=== PATIENT | male | born 1945 | race Caucasian/White ===

== ENCOUNTER 2016-03-18 05:22 | Inpatient (IN) | payer MEDICARE, BC ==
--- NOTE | 2016-03-16 19:04 | PREOPHP ---
DATE OF ADMISSION: 03/18/2016 This patient is being admitted electively on 03/18/[address] Yoan Rosado. REASON FOR ADMISSION: Peripheral artery disease with vascular insufficiency of right leg. HISTORY OF PRESENT ILLNESS: This 70-year-old man is being admitted now up to undergo surgery by Dr. Rosado. The patient has an arterial stenosis in his right leg that needs a vascular bypass. Dr Cari Rosado has done an angiogram on the patient, which shows a narrowing in his right leg femoral a rtery. The patient is to undergo a femoral to anterior tibial bypass with a vein graft. The patien t has a history of peripheral artery disease. He did develop a left foot ischemic diabetic ulcer. This was in December of 2015. The patient eventually underwent a left below the knee amputation by Luis Daniel López in December of 2015. That left leg stump has had difficulty healing. He currently guerrier s a wound VAC on the stump and it has been debrided several times by Dr. Rosado. Dr. Rosado d id perform a right leg angiogram and found that the patient has superficial femoral artery stenosis and needs a vascular bypass. The patient has been a resident of [facility] or the last several months. He has a history of end-stage renal disease and is on maintenance hemod ialysis Wednesday, Wednesday, and Wednesday. He has a longstanding history of type 2 diabetes mellitus wi th multiple sequelae. He also has severe postural hypotension and is mostly in bed, although he is able to get in a wheelchair and is able to sit in a wheelchair for several hours. He has been under going physical therapy at [facility]. CURRENT MEDICATIONS: Include the followin. Aspirin 81 mg a day, which was held preoperatively. 2. Lantus insulin 28 units at bedtime daily. 3. PhosLo 1 tablet 3 times a day. 4. Centrum Silver 1 daily. 5. Atenolol 25 mg a day. 6. Calcitriol 0.25 mcg a day. 7. Vitamin D3 at 50,000 units a month. 8. Lipitor 20 mg a day. 9. NovoLog insulin 8 units before each meal. 10. Creon 1 tablet 3 times a day with meals. ALLERGIES: HE HAS NO KNOWN DRUG ALLERGIES. PAST MEDICAL HISTORY: Remarkable for hypertension, diabetes mellitus, pancreatitis with pancreatic insufficiency, end-stage renal disease on maintenance hemodialysis, diabetic nephropathy, urinary tr act infection. Severe postural hypotension. SURGICAL HISTORY: Vasectomy, tonsillectomy, colonoscopy, right eye cataract extraction, right arm A V fistula, left below the knee amputation in December 2015. FAMILY HISTORY: Father at age 86 of a stroke. Mother age 76 of congestive heart failure. SOCIAL HISTORY: The patient does not smoke or drink alcohol. He is retired. REVIEW OF SYSTEMS: CONSTITUTIONAL: No chills, no weight gain, no loss of appetite, no fever, no weakness, no weight lo ss, no fatigue. EARS, NOSE, THROAT: He does have a persistent cough with feeling of postnasal drip. CARDIORESPIRATORY: Denies shortness of breath. He does have a persistent intermittent cough. CARDIOLOGY: No chest pain, no chest pressure. No history of heart disease. GASTROINTESTINAL: Negative. NEUROMUSCULAR: Lower extremity tingling and numbness due to diabetic nephropathy. UROLOGIC: Benign prostatic hypertrophy. PHYSICAL EXAMINATION: GENERAL: At this time reveals an ill-appearing man in no apparent distress. VITAL SIGNS: Temperature 96.9, blood pressure sitting of 160/80, heart rate 80. HEENT: Head normocephalic. Eyes: Extraocular muscles intact. Nose and mouth are normal. On the left side of his nose on the skin, there is a nonhealing lesion. NECK: No neck vein distention. LUNGS: Clear to auscultation. HEART: Regular rhythm. No murmurs, gallops, or rubs. ABDOMEN: Soft, nontender. No masses or megaly extremity. LOWER EXTREMITIES: Left lower leg status post below the knee amputation with a healing stump with a wound VAC. Right leg, there are some poorly healing superficial skin tears. IMPRESSION: This patient is cleared for vascular bypass surgery of the right leg. He has multiple medical problems due to longstanding type 2 diabetes mellitus. I will follow the patient along with you postoperatively. The patient does have end-stage renal disease and is on maintenance hemodialy sis Wednesday, Wednesday, and Wednesday. His next dialysis after surgery will be determined while in the hospital. Dictated By: CELESTE BHATT MD, ND/YOANDY Conf#: [id number] DID#: [id number] CC: MARTÍNEZ ROSADO MD;*EndCC*
[2016-03-17 10:53] VITALS: Ht 190.5 cm; Wt 84.0 kg
[2016-03-18] VITALS (73 sets, daily range): BP systolic 133–188; BP diastolic 38–76; PULSE 66–93; RESP 13–23
[~2016-03-18] VITALS: Ht 190.5 cm; Wt 84.0 kg
[~2016-03-18 05:22] MED LIST: ACET-2047 PO; ASCO500C7 PO; ASP81 PO; ATOR20TA38 PO; CALC0.2511 PO; CALC667C PO; EPO10ESRD SC; HEP30MU30 IJ; HYDR-906 PO; LANT3I SC; LIPA1CAP6 PO; LORA10TA3 PO; MIDO5TAB19 PO; MULT-542 PO; NOVO3I SC; SACC250C PO; UDROBDM PO
[2016-03-18] MEDS ORDERED: VANCOMYCIN 1 GM (PMX) 250 ML IVPB SCH ×2 (06:30→13:00)
[2016-03-18] MEDS ORDERED: GELATIN SIZE 100 SPONGE ONE (06:58)
[2016-03-18] MEDS ORDERED: HEPARIN 1000 UNITS/ML 10 ML INJ ONE ×2 (06:59→09:08)
--- NOTE | 2016-03-18 07:13 | HPN ---
Date/Time of Note Date/Time of Note DATE: 03/18/16 TIME: 07:13 Interval H&P Admission Note Pt. seen H&P reviewed: No system changes Worsening RLE tissue loss MARTÍNEZ ROSADO MD Mar 18, 2016 07:13
[2016-03-18] MEDS: DEXTRAN-40 10%/D5W 500 ML, HEPARIN 1,000 UNIT, PAPAVERINE 120 MG IV SCH ×6 (07:30→09:18)
[2016-03-18] MEDS ORDERED: MIDAZOLAM 1 MG/ML 2 ML INJ ONE (07:37)
[2016-03-18] MEDS ORDERED: SACC250C PO (07:53)
[2016-03-18] MEDS ORDERED: FOSRENOL PO (07:53)
[2016-03-18] MEDS ORDERED: ATOR20TA38 PO (07:53)
[2016-03-18] MEDS ORDERED: BISA10SU55 RC (07:53)
[2016-03-18] MEDS ORDERED: NA P230E RC (07:53)
[2016-03-18] MEDS ORDERED: TAMS0.4C2 PO (07:53)
[2016-03-18] MEDS ORDERED: EPO10ESRD SC (07:53)
[2016-03-18] MEDS ORDERED: CALC-277 PO (07:53)
[2016-03-18] MEDS ORDERED: CHOL100062 PO ×2 (07:53)
[2016-03-18] MEDS ORDERED: NEPH PO (07:53)
[2016-03-18] MEDS: THROMBIN 5000 UNIT VIAL ONE ×2 (09:18→09:52)
[2016-03-18] MEDS ORDERED: FENTAnyl 50 MCG/ML VIAL IV PRN (09:30)
[2016-03-18] MEDS ORDERED: ONDANSETRON 4 MG INJ IV PRN (09:30)
[2016-03-18] MEDS ORDERED: DIPHENHYDRAMINE 50 MG INJ IV PRN (09:30)
[2016-03-18] MEDS ORDERED: morphine (1 MG/ML) 10ML SYRINGE IV PRN (09:30)
[2016-03-18] MEDS ORDERED: morphine 10 MG INJ ONE (11:24)
[2016-03-18] MEDS ORDERED: ROCURONIUM 50 MG INJ ONE (12:11)
[2016-03-18] MEDS ORDERED: LIDOCAINE 2% (SDV) 5 ML INJ ONE (12:11)
[2016-03-18] MEDS ORDERED: ETOMIDATE 20 MG INJ ONE (12:11)
[2016-03-18] MEDS ORDERED: ONDANSETRON 4 MG INJ ONE (12:11)
[2016-03-18] MEDS ORDERED: LABETALOL HCL 20MG INJ ONE (12:56)
--- NOTE | 2016-03-18 13:03 | OPR ---
Date/Time of Note Date/Time of Note DATE: 03/18/16 TIME: 12:56 Operative Report Free Text/Dictation DATE OF OPERATION: 03/18/2016 SURGEON: Johny Rosado MD INFORMATION SYSTEMS PLANNER: Fadi Oliveros MD PREOPERATIVE DIAGNOSIS: Right lower extremity gangrene. POSTOPERATIVE DIAGNOSIS: Right lower extremity gangrene. OPERATION PERFORMED: 1. Right superficial femoral artery to distal anterior tibial artery in situ bypass. 2. Excisional sharp debridement of the below knee amputation stump wound (Skin subcutaneous tissue) ANESTHESIA: General. COMPLICATIONS: None. ESTIMATED BLOOD LOSS: 250 mL TRANSFUSION: Two unit of packed red blood cells. INTRAVENOUS FLUIDS: 1.6 L's SPECIMEN: None. INDICATIONS: This is a 70-year-old diabetic gentleman whom presented with right lower extremity gangrene. Patient had already underwent left BKA secondary to Charcot foot and atherosclerotic disease. Patient wanted to have every possibility of limb salvage for the right lower extremity. Risks and benefits of the procedure were discussed with the patient, not limited to , AL, pneumonia, stroke, infection, thrombosis of graft and arterial, revision of bypass, nerve injury, limb loss, nephrotoxicity, bleeding, possible multiple revisions, and he elected to undergo surgical intervention. DESCRIPTION: The patient was brought into the operating room and placed in supine position on the table. The arms were placed at 80 degrees. The normal bony prominences were padded. The anesthesia team had placed appropriate lines , and general anesthesia was induced. The patient tolerated anesthesia well. Jimenez catheter was placed under sterile conditions. Arterial line was also placed under sterile conditions. Time-out and the appropriate side was marked and confirmed. The patient's right lower abdomen and the right lower extremity were then circumferentially prepped and draped in usual standard sterile fashion. Preoperative antibiotics were administered prior to skin incision. A 10 to 12 cm longitudinal incision was performed 1 to 2 cm posteromedial and parallel to the tibia. The incision was deepened through the subcutaneous tissue. Care was given to avoid greater saphenous vein injury. The quality of the vein was adequate. The greater saphenous vein was preserved and the incision was extended towards the medial malleolus. . At this point, a 3 cm aspect of the anterior tibial artery was freed and dissected. Attention was then directed towards the groin. A longitudinal incision was then made over the right superficial femoral artery plane. The incision was deepened through the subcutaneous tissue with electrocautery and sharp dissection. Attention was paid to avoid lymphatics, and encountered lymphatics were ligated and divided. The distal common femoral artery was then exposed and sharply dissected, and the dissection was extended distally to include the superficial femoral artery. The entire superficial femoral artery was evaluated and appeared to be adequate for location for our bypass. At this point, the greater saphenous then was identified in the medial aspect of our incision in the subcutaneous tissue. The greater saphenous vein was then traced towards the saphenofemoral junction. The saphenofemoral junction and adjacent 5 cm segment of the saphenous vein were then circumferentially dissected. Venous branches originating from this segment were isolated and divided. The anterior aspect of the saphenous vein was then exposed from the saphenofemoral junction to the mid lower leg through one continuous incision. This was performed secondary to having multiple closed loops in the thigh and in the upper and mid calf area. The LeMaitre valvulotome was run through the vein in order to see the appropriate direction of the dominant aspect of the greater saphenous vein in the closed loops. However, it was difficult to ascertain which path was the best for our bypass. It was then determined that we will perform an open in situ bypass and will do localized valvulotomies. At this point, the superficial femoral artery was encircled with Silastic vessel loops, and minor branches were identified and spared. The patient was given 5000 units of heparin intravenously. A side Major clamp was then applied to the common femoral vein, and the saphenous vein was transected. This incorporated the saphenofemoral junction and a 1 mm rim of the femoral vein. The femoral venotomy was then closed with a running 5-0 Prolene suture. The saphenofemoral valve was then excised under direct vision using Young scissors. The superficial femoral artery was then clamped proximally and distally. Longitudinal arteriotomy in the superficial femoral artery was then performed and extended with Young scissors for 1 cm. The proximal anastomosis was then constructed between the gilman of the saphenofemoral junction and the femoral arteriotomy with a running 5-0 Prolene suture. Prior to completing the suture line, back bleeding, forward flushing and irrigation of the anastomosis with heparinized saline solution was performed. The anastomosis was then completed and checked for hemostasis, which was adequate. With the vein arterialized, the skin overlying the vein was incised and the vein sequentially exposed. The remaining valves where then disrupted using a retrograde valvulotome introduced through the side branches and distal end of the saphenous vein. The flow through the vein was checked, and it was pulsatile. During this process, there were multiple closed loops which were identified and made it a bit challenging in terms of being able to determine which path is going to be the dominant. Therefore, we kept the closed loop intact, and both the nondominant and dominant greater saphenous veins were spared and were included in the in-situ. The distal end of the vein was then controlled with a Yasargil clamp. At this point, the proximal and distal control of the posterior tibial artery was then performed using Yasargil clamps. A 1 cm arteriotomy was then created in the anterior wall of the posterior tibial artery. The vein was then transected at the appropriate length. The transected end was incised along its posterior aspect, the vein was spatulated and anastomosis to the posterior tibial artery was then constructed with a running 6-0 Prolene suture. Prior to completing the suture line, backbleeding, forward flushing and irrigation of the anastomosis with heparinized saline solution. The anastomosis was then checked for hemostasis, which was adequate. The suture lines and the wounds were then rechecked for hemostasis. There was good Doppler signal in the foot at the level of the posterior tibial artery and anterior tibial artery and a good augmentation of the signal with compressing and releasing of the vein graft. The subcutaneous tissues in the groin wound were closed with two layer fashion with 3-0 Prolene suture. The fascia over the soleus muscle was partially closed with 3-0 Vicryl sutures in an interrupted fashion. The skin was closed with skin alec. Skin alec were applied to the rest of the leg. At this point, a dry, sterile dressings was applied. The patient tolerated procedure well, was then transferred to the intensive care unit in fair condition. All instruments, catheters, needles, sponges were correct x2 JOHNY ROSADO MD Mar 18, 2016 13:03
[2016-03-18] MEDS ORDERED: LABETALOL HCL 20MG INJ IV ONE (13:30)
--- NOTE | 2016-03-18 13:37 | RADRPT ---
PROCEDURE: Chest Radiograph. CLINICAL INDICATION: Central line placement TECHNIQUE: Single frontal chest radiograph. COMPARISON: Chest radiograph 01/06/2016 FINDINGS: A right internal jugular venous catheter is in place with distal tip in the region of the central in ternal jugular vein. There is no pneumothorax. The cardiomediastinal silhouette is within normal l imits. No infiltrate or effusion is seen. There are healed left posterior rib fractures.. IMPRESSION: 1. Right internal jugular venous line in place. No pneumothorax. 2. No evidence of acute cardiopulmonary disease. RPTAT: KK .Abiel Monahan MD, MD Date Time Electronically viewed and signed by .Abiel Monahan MD, MD on 03/18/2016 13:36 .B/
[2016-03-18] MEDS ORDERED: HEPARIN 5,000 UNIT/0.5 ML SYG SC SCH (14:00)
[2016-03-18] MEDS ORDERED: DEXTROSE 50% 50 ML SYRINGE IV PRN ×4 (14:30→15:00)
[2016-03-18] MEDS ORDERED: ACETAMINOPHEN 325 MG TAB PO PRN (14:30)
[2016-03-18] MEDS ORDERED: GLUCOSE GEL 15 GRAM TUBE BUCCAL PRN ×2 (14:30→15:00)
[2016-03-18] MEDS ORDERED: GLUCOSE GEL 15 GRAM TUBE PO PRN ×4 (14:30→15:00)
[2016-03-18] MEDS ORDERED: BISACODYL 10 MG SUPP PR PRN (14:30)
[2016-03-18] MEDS ORDERED: GLUCAGON 1 MG INJ IM PRN ×2 (14:30→15:00)
[2016-03-18] MEDS: CREON (24K-76K-120K) 1 CAP PO SCH (18:00)
[2016-03-18] MEDS: INSULIN ASPART [NOVOLOG] 3 ML PEN SC SCH ×2 (18:00→21:00)
[2016-03-18] MEDS: CALCIUM ACETATE 667 MG CAP PO SCH (18:00)
[2016-03-18] MEDS: HYDROmorphONE 1 MG/ML SYG IV PRN ×2 (18:13→21:46)
[2016-03-18] MEDS ORDERED: SACCHAROMYCES BOULARDII 250 MG CAP PO SCH (21:00)
[2016-03-18] MEDS ORDERED: ATORVASTATIN 20 MG TAB PO SCH (21:00)
[2016-03-18] MEDS: TAMSULOSIN (SR) 0.4 MG CAP PO SCH (21:08)
[2016-03-18] MEDS: ATORVASTATIN 20 MG TAB PO SCH (21:08)
[2016-03-18] MEDS: HEPARIN 5,000 UNIT/0.5 ML SYG SC SCH (21:47)
[2016-03-18] MEDS: INSULIN GLARGINE [LANtus] 3 ML PEN SC SCH (22:52)
--- NOTE | 2016-03-18 22:56 | RADRPT ---
Vent Rate: 77 bpm RR Interval: 0 msec VT Interval: 186 msec QRS Duration: 100 msec QT Interval: 400 msec QTC Interval: 452 msec P-R-T [place]: 59 - 27 - 65 degrees Normal sinus rhythm Normal ECG Electronically Signed By: Navjot Maldonado [id number]
--- NOTE | 2016-03-18 23:42 | CONS ---
Date/Time of Note Date/Time of Note DATE: 03/18/16 TIME: 23:32 Assessment/Plan Assessment/Plan Chief Complaint/Hosp Course Impression 1. PAD s/p R fem-tib bypass - cont asa/statin - doing well postop - cont wound mgmt per vascular 2. Orthostatic hypotension- likely from DM2 autonomic dysfunction. severe with nocturnal hypertension at times. - midodrine as needed, had reduced frequency of taking as outpt - if sustained sbp > 180 at rest may need prn - bp lower overnight, no antihtn at this time, will watch for supine htn. - sleep > 30 degrees angle, avoid laying supine 3.ESRD on maintenance hemodialysis - stable - iHD per renal 4.DM II per primary Problems: Consultation Date/Type/Reason Admit Date/Time Mar 18, 2016 at 05:22 Date of Consultation: Mar 18, 2016 Type of Consultation: Cardiolgoy Reason for Consultation post op exam, orthostatic hypotension Referring Provider: MARTÍNEZ ROSADO MD Hx of Present Illness Mr. Hayden is a 70 y.o. man with h/o dm2, hld, PAD s/p L BKA and RLE CLI now s/p R fem-tib bypass and wound debridement. Pt seen as preop, had normal lvef on echo, fixed inferior defect on lexiscan no reversible ischemia, pt cleared for surgery and has done well seen post op in pacu. pt alert, exubated. denies any, cp, sob, dizziness. still with RLE pain he states. no palp, dizziness. Constitutional: no complaints Eyes: no complaints ENT: no complaints Respiratory: no complaints Cardiovascular: no complaints Gastrointestinal: no complaints Genitourinary: no complaints Musculoskeletal: other (difficulty walking) Skin: erythema, skin lesions Neurologic: other (orthostatic hypotesnion) Psychological: no complaints Past Medical History PAD, diabetes mellitus, pancreatitis with pancreatic insufficiency, end-stage renal disease on maintenance hemodialysis, diabetic nephropathy, urinary tract infection. Severe postural hypotension. Past Surgical History Vasectomy, tonsillectomy, colonoscopy, right eye cataract extraction, right arm AV fistula, left below the knee amputation in December 2015. Past Surgical Hx: other Family History Significant Family History: heart disease, other (stroke) Social History Alcohol Use: none Smoking Status: Never smoker Drug Use: none Exam/Review of Systems Vital Signs Vitals Vital Signs Date Time Temp Pulse Resp B/P Pulse Ox O2 Delivery O2 Flow Rate FiO2 03/18/16 20:56 85 03/18/16 20:53 2.0 03/18/16 19:48 18 140/67 98 Nasal Cannula 03/18/16 12:42 98.2 Exam Constitutional: alert, oriented Psych: no complaints Head: normocephalic Eyes: EOMI, nl conjunctiva, nl lids ENMT: nl external ears & nose Neck: non-tender, supple, No jvd Respiratory: clear to auscultation, normal air movement Cardiovascular: nl pulses, regular rate and rhythm, No S3, No S4, No bruits, No edema, No irregular rhythm, No jugular venous distention (JVD), No systolic murmur Gastrointestinal: non-tender, soft Musculoskeletal: other (rle dressing intake, c/d, RLE with ulceration of toes) Extremities: normal pulses Neurological: CASH CLERK II-XII intact, nl mental status, nl speech, nl strength Results Results 24 hrs Laboratory Tests Test 03/18/16 06:30 03/18/16 12:44 03/18/16 21:07 Bedside Glucose 137 137 105 Medications Medications Current Medications Vancomycin HCl (Vancocin) 250 ml @ 125 mls/hr Q24H IVPB ; Start 03/19/16 at 08: 00; Stop 03/19/16 at 09:59 Heparin Sodium (Porcine) (Heparin (5000 Units/0.5 ml)) 5,000 unit Q8 SC Last administered on 03/18/16 21:47; Admin Dose 5,000 UNIT; Start 03/18/16 at 22:00 Acetaminophen (Tylenol Tab) 650 mg Q4H PRN PO PAIN AND OR ELEVATED TEMP; Start 03/18/16 at 14:30 Ascorbic Acid (Vitamin C) 500 mg DAILY PO ; Start 03/19/16 at 09:00 Aspirin (Aspirin) 81 mg DAILY PO ; Start 03/19/16 at 09:00 Atorvastatin Calcium (Lipitor) 20 mg QHS PO Last administered on 03/18/16 21: 08; Admin Dose 20 MG; Start 03/18/16 at 21:00 Bisacodyl (Dulcolax Supp) 10 mg DAILY PRN UT BM; Start 03/18/16 at 14:30 Calcitriol (Rocaltrol) 0.25 mcg DAILY PO ; Start 03/19/16 at 09:00 Epoetin Nito (Epogen (Esrd)) 10,000 units MONWEDFRI@17 SC ; Start 03/18/16 at 17 :00 Insulin Glargine (Lantus) 20 unit QHS SC Last administered on 03/18/16 22:52; Admin Dose 20 UNIT; Start 03/18/16 at 21:00 Loratadine (Claritin) 10 mg DAILY PO ; Start 03/19/16 at 09:00 Multivit/Ca Carb/ B Cmplx/FA/Prenat (Sarika-Nahomi) 1 tab DAILY PO ; Start 03/19/16 at 09:00 Saccharomyces Boulardii (Florastor) 500 mg BID PO ; Start 03/18/16 at 21:00 Tamsulosin HCl (Flomax) 0.4 mg HS PO Last administered on 03/18/16 21:08; Admin Dose 0.4 MG; Start 03/18/16 at 21:00 Diagnostic Test (Pha) (Accucheck) 1 ea 02 XX ; Start 03/19/16 at 02:00 Hydromorphone HCl (Dilaudid) 1 mg Q4H PRN IV PAIN Last administered on 21:46; Admin Dose 1 MG; Start 03/18/16 at 14:30 Miscellaneous Information 1 ea NOTE XX ; Start 03/18/16 at 15:00 Glucose (Glutose) 15 gm Q15M PRN PO DECREASED GLUCOSE; Start 03/18/16 at 15:00 Glucose (Glutose) 22.5 gm Q15M PRN PO DECREASED GLUCOSE; Start 03/18/16 at 15: 00 Dextrose (D50w Syringe) 25 ml Q15M PRN IV DECREASED GLUCOSE; Start 03/18/16 at 15:00 Dextrose (D50w Syringe) 50 ml Q15M PRN IV DECREASED GLUCOSE; Start 03/18/16 at 15:00 Glucagon (Glucagen) 1 mg Q15M PRN IM DECREASED GLUCOSE; Start 03/18/16 at 15:00 Glucose (Glutose) 15 gm Q15M PRN BUCCAL DECREASED GLUCOSE; Start 03/18/16 at 15 :00 Procedures Procedures EKG: NSR no changes op report reviewed AMY PEREZ Mar 18, 2016 23:42
[2016-03-19] VITALS (58 sets, daily range): BP systolic 115–200; BP diastolic 4–114; PULSE 83–99; RESP 10–28
[2016-03-19] MEDS: ACCUCHECK XX SCH (02:00)
[2016-03-19] MEDS: HYDROmorphONE 1 MG/ML SYG IV PRN ×2 (03:01→06:19)
[2016-03-19] MEDS: SACCHAROMYCES BOULARDII 250 MG CAP PO SCH ×3 (03:02→21:25)
[2016-03-19] MEDS: EPOETIN 10000 UNITS/1 ML INJ (ESRD) SC SCH (03:45)
[2016-03-19] MEDS: HEPARIN 5,000 UNIT/0.5 ML SYG SC SCH ×3 (05:39→21:26)
[2016-03-19] MEDS: INSULIN ASPART [NOVOLOG] 3 ML PEN SC SCH ×4 (07:35→21:00)
--- NOTE | 2016-03-19 07:56 | PN ---
Date/Time of Note Date/Time of Note DATE: 03/19/16 TIME: 07:48 Assessment/Plan Lines/Catheters IV Catheter Type (from [facility]): A Line Jimenez in Place (from [facility]): Yes Assessment/Plan Chief Complaint/Hosp Course -RLE atherosclerosis with gangrene: S/P SFA-Distal Anterior tibial artery In- Situ bypass -D/C Jimenez -D/C Sommer -PT/OT OOB and to chair, activity as tolerated, FWB with RLE -Will need another 24hours of neurovascular checks' -Appreciate cardiology input -Appreciate nephrology input -Optimize vascular status (BP meds, sugar control, cholesterol, antiplatelets, diet, nutrition) -Discussed the plan, management and findings with pt and he understands -Thank you for allowing us to partake in the car5e of your patient, please call with any questions Problems: Subjective 24 Hr Interval Summary no new vascular events overnight, tolerated HD successfully Exam/Review of Systems Vital Signs Vitals Vital Signs Date Time Temp Pulse Resp B/P Pulse Ox O2 Delivery O2 Flow Rate FiO2 03/19/16 04:00 93 11 168/44 100 Nasal Cannula 4.0 139/52 03/19/16 02:30 98.1 Intake and Output 03/18/16 03/18/16 03/19/16 15:00 23:00 07:00 Intake Total 2300 ml 500 ml Output Total 300 ml 2300 ml Balance 2000 ml -1800 ml Exam Free Text/Dictation A&Ox3 CTAB S1S2 present soft NTND BS+ RLE: palpable femoral pulse, palpable graft at the ankle, motor/sensory intact, cap refill 1-2 seconds, dependant dopplerable DP signal biphasic, All surgical dressings intact and dry. LLE: palpable femoral pulse, motor/sensory intact, dressing intact and dry MARTÍNEZ ROSADO MD Mar 19, 2016 07:56
[2016-03-19] MEDS ORDERED: VANCOMYCIN 1 GM (PMX) 250 ML IVPB SCH (08:00)
[2016-03-19] MEDS: CREON (24K-76K-120K) 1 CAP PO SCH ×3 (08:49→18:21)
[2016-03-19] MEDS: MULTIVIT/CA CARB/B CMPLX/FA TAB PO SCH (08:49)
[2016-03-19] MEDS: LORATADINE 10 MG TAB PO SCH (08:50)
[2016-03-19] MEDS: CALCIUM ACETATE 667 MG CAP PO SCH ×3 (08:50→18:22)
[2016-03-19] MEDS: ASCORBIC ACID 500 MG TAB PO SCH (08:50)
[2016-03-19] MEDS: ASPIRIN 81 MG TAB PO SCH (08:50)
[2016-03-19] MEDS: CALCITRIOL 0.25 MCG CAP PO SCH (08:50)
[2016-03-19 09:25] LABS: BASOPHIL # 0.1 10^3/ul (0.0-0.1); EOSINOPHILS # 0.4 10^3/ul (0.0-0.5); EOSINOPHILS % 3.9 % (0.0-7.0); HEMATOCRIT 35.4 % (42.0-52.0); HEMOGLOBIN 11.8 g/dl (14.0-18.0); LYMPHOCYTES # 1.1 10^3/ul (0.8-2.9); LYMPHOCYTES % 11.6 % (15.0-51.0); MEAN CORPUSCULAR HEMOGLOBIN 29.6 pg (29.0-33.0); MEAN CORPUSCULAR HGB CONC 33.2 g/dl (32.0-37.0); MEAN CORPUSCULAR VOLUME 89.2 fl (82.0-101.0); MEAN PLATELET VOLUME 6.7 fl (7.4-10.4); MONOCYTE # 0.6 10^3/ul (0.3-0.9); MONOCYTES % 6.8 % (0.0-11.0); NEUTROPHILS % 76.7 % (39.0-77.0); PLATELET COUNT 164 10^3/UL (140-440); RED BLOOD COUNT 3.97 10^6/ul (4.70-6.10); RED CELL DISTRIBUTION WIDTH 16.2 % (11.5-14.5); UNCORRECTED WBC 9.1 10^3/ul (4.8-10.8); WHITE BLOOD COUNT 9.1 10^3/ul (4.8-10.8)
[2016-03-19 09:32] LABS: CONDITION 1; LH ANALYZER COMMENTS 1
[2016-03-19 09:36] LABS: CALCIUM 8.2 mg/dl (8.4-10.2); CREATININE 4.11 mg/dl (0.61-1.24)
--- NOTE | 2016-03-19 09:52 | CONS ---
Date/Time of Note Date/Time of Note DATE: 03/19/16 TIME: 09:39 Assessment/Plan Assessment/Plan Chief Complaint/Hosp Course 1. he is 1 day post op R leg Femoral to tibial artery bypass . L leg stump debridement . 2. ESRD , hemodialysis ordered for tomorrow . 3. DM 4. severe postural hypotension 5. anemia of CKD . Problems: Consultation Date/Type/Reason Admit Date/Time Mar 18, 2016 at 05:22 Initial Consult Date 03/18/16 Type of Consultation: Cardiolgoy Referring Provider: MARTÍNEZ ROSADO MD 24 HR Interval Summary Free Text/Dictation He is now 1 day post op a R femoral artery bypass . He is in the ICU . Constitutional: no complaints Exam/Review of Systems Vital Signs Vitals Vital Signs Date Time Temp Pulse Resp B/P Pulse Ox O2 Delivery O2 Flow Rate FiO2 03/19/16 08:00 89 03/19/16 06:15 16 143/61 99 Nasal Cannula 2.0 143/61 03/19/16 02:30 98.1 Intake and Output 03/18/16 03/18/16 03/19/16 15:00 23:00 07:00 Intake Total 2300 ml 50 ml 550 ml Output Total 300 ml 135 ml 2485 ml Balance 2000 ml -85 ml -1935 ml Exam R leg with a large bandage , L leg S/P BKA with debridement . Constitutional: alert, oriented, well developed Psych: nl mood/affect, no complaints Respiratory: clear to auscultation, normal air movement Cardiovascular: regular rate and rhythm Results Result Diagram: 03/19/1620 03/19/16 0920 Results 24 hrs Laboratory Tests Test 03/18/16 12:44 03/18/16 21:07 03/19/16 01:35 03/19/16 08:45 Bedside Glucose 137 105 129 89 Test 03/19/16 09:20 Anion Gap 17 H Basophils # 0.1 Basophils % 1.0 Blood Morphology Comment Blood Urea Nitrogen 35 H Calcium Level 8.2 L Carbon Dioxide Level 29 Chloride Level 97 Creatinine 4.11 H Eosinophils # 0.4 Eosinophils % 3.9 Glucose Level 83 Hematocrit 35.4 L Hemoglobin 11.8 L Lymphocytes # 1.1 Lymphocytes % 11.6 L Mean Corpuscular Hemoglobin 29.6 Mean Corpuscular Hemoglobin Concent 33.2 Mean Corpuscular Volume 89.2 Mean Platelet Volume 6.7 #L Monocytes # 0.6 Monocytes % 6.8 Neutrophils # 7.0 Neutrophils % 76.7 Nucleated Red Blood Cells # 0.0 Nucleated Red Blood Cells % 0.0 Platelet Count 164 Potassium Level 4.0 Red Blood Count 3.97 L Red Cell Distribution Width 16.2 H Sodium Level 139 White Blood Count 9.1 # Medications Medications Current Medications Vancomycin HCl (Vancocin) 250 ml @ 125 mls/hr Q24H IVPB Last administered on 08:55; Admin Dose 125 MLS/HR; Start 03/19/16 at 08:00; Stop 03/19/16 at 09:59 Heparin Sodium (Porcine) (Heparin (5000 Units/0.5 ml)) 5,000 unit Q8 SC Last administered on 03/19/16 05:39; Admin Dose 5,000 UNIT; Start 03/18/16 at 22:00 Acetaminophen (Tylenol Tab) 650 mg Q4H PRN PO PAIN AND OR ELEVATED TEMP; Start 03/18/16 at 14:30 Ascorbic Acid (Vitamin C) 500 mg DAILY PO Last administered on 03/19/16 08:50 ; Admin Dose 500 MG; Start 03/19/16 at 09:00 Aspirin (Aspirin) 81 mg DAILY PO Last administered on 03/19/16 08:50; Admin Dose 81 MG; Start 03/19/16 at 09:00 Atorvastatin Calcium (Lipitor) 20 mg QHS PO Last administered on 03/18/16 21: 08; Admin Dose 20 MG; Start 03/18/16 at 21:00 Bisacodyl (Dulcolax Supp) 10 mg DAILY PRN [place] BM; Start 03/18/16 at 14:30 Calcitriol (Rocaltrol) 0.25 mcg DAILY PO Last administered on 03/19/16 08:50; Admin Dose 0.25 MCG; Start 03/19/16 at 09:00 Epoetin Nito (Epogen (Esrd)) 10,000 units MONWEDFRI@17 SC Last administered on 03/19/16 03:45; Admin Dose 10,000 UNITS; Start 03/18/16 at 17:00 Insulin Glargine (Lantus) 20 unit QHS SC Last administered on 03/18/16 22:52; Admin Dose 20 UNIT; Start 03/18/16 at 21:00 Loratadine (Claritin) 10 mg DAILY PO Last administered on 03/19/16 08:50; Admin Dose 10 MG; Start 03/19/16 at 09:00 Multivit/Ca Carb/ B Cmplx/FA/Prenat (Sarika-Nahomi) 1 tab DAILY PO Last administered on 03/19/16 08:49; Admin Dose 1 TAB; Start 03/19/16 at 09:00 Saccharomyces Boulardii (Florastor) 500 mg BID PO Last administered on 08:49; Admin Dose 500 MG; Start 03/18/16 at 21:00 Tamsulosin HCl (Flomax) 0.4 mg HS PO Last administered on 03/18/16 21:08; Admin Dose 0.4 MG; Start 03/18/16 at 21:00 Diagnostic Test (Pha) (Accucheck) 1 ea 02 XX Last administered on 03/19/16 02: 00; Admin Dose 1 EA; Start 03/19/16 at 02:00 Hydromorphone HCl (Dilaudid) 1 mg Q4H PRN IV PAIN Last administered on 06:19; Admin Dose 1 MG; Start 03/18/16 at 14:30 Miscellaneous Information 1 ea NOTE XX ; Start 03/18/16 at 15:00 Glucose (Glutose) 15 gm Q15M PRN PO DECREASED GLUCOSE; Start 03/18/16 at 15:00 Glucose (Glutose) 22.5 gm Q15M PRN PO DECREASED GLUCOSE; Start 03/18/16 at 15: 00 Dextrose (D50w Syringe) 25 ml Q15M PRN IV DECREASED GLUCOSE; Start 03/18/16 at 15:00 Dextrose (D50w Syringe) 50 ml Q15M PRN IV DECREASED GLUCOSE; Start 03/18/16 at 15:00 Glucagon (Glucagen) 1 mg Q15M PRN IM DECREASED GLUCOSE; Start 03/18/16 at 15:00 Glucose (Glutose) 15 gm Q15M PRN BUCCAL DECREASED GLUCOSE; Start 03/18/16 at 15 :00 CELESTE BHATT MD Mar 19, 2016 09:51
[2016-03-19] MEDS ORDERED: ONDANSETRON 4 MG INJ IV PRN (10:00)
[2016-03-19 10:20] LABS: ALBUMIN 3.2 g/dl (3.3-4.9)
[2016-03-19 10:23] LABS: BILIRUBIN,INDIRECT 0.4 mg/dl (0-1.1); BILIRUBIN,TOTAL 0.4 mg/dl (0.2-1.3); TOTAL PROTEIN 6.7 g/dl (6.1-8.1)
--- NOTE | 2016-03-19 10:49 | CONS ---
Date/Time of Note Date/Time of Note DATE: 03/19/16 TIME: 10:46 Assessment/Plan Assessment/Plan Chief Complaint/Hosp Course Impression 1. PAD s/p R fem-tib bypass - cont asa/statin - doing well postop - cont wound mgmt per vascular 2. Orthostatic hypotension- likely from DM2 autonomic dysfunction. severe with nocturnal hypertension at times. - midodrine as needed, had reduced frequency of taking as outpt - if sustained sbp > 180 at rest may need prn bp med - will watch for supine htn. - sleep > 30 degrees angle, avoid laying supine 3.ESRD on maintenance hemodialysis - stable - iHD per renal 4.DM II per primary Problems: Consultation Date/Type/Reason Admit Date/Time Mar 18, 2016 at 05:22 Initial Consult Date 03/18/16 Type of Consultation: Cardiolgoy Referring Provider: MARTÍNEZ ROSADO MD 24 HR Interval Summary Free Text/Dictation no acute events. pt sitting up eating breakfast. no chest pain/sob. does have some dizziness. bp stable when laying to sitting. though hypetensive. Tele tracings: nsr, no events. Constitutional: no complaints Detailed Summary Eyes: no complaints Respiratory: no complaints Cardiovascular: lightheadedness Gastrointestinal: no complaints Exam/Review of Systems Vital Signs Vitals Vital Signs Date Time Temp Pulse Resp B/P Pulse Ox O2 Delivery O2 Flow Rate FiO2 03/19/16 10:30 92 14 139/58 99 Nasal Cannula 2.0 03/19/16 08:15 98.0 Intake and Output 03/18/16 03/18/16 03/19/16 15:00 23:00 07:00 Intake Total 2300 ml 50 ml 550 ml Output Total 300 ml 135 ml 2485 ml Balance 2000 ml -85 ml -1935 ml Exam Constitutional: alert, oriented Psych: no complaints Head: normocephalic Eyes: EOMI, nl conjunctiva, nl lids ENMT: nl external ears & nose Neck: non-tender, supple, No jvd Respiratory: clear to auscultation, normal air movement Cardiovascular: nl pulses, regular rate and rhythm, No S3, No S4, No bruits, No edema, No irregular rhythm, No jugular venous distention (JVD), No systolic murmur Gastrointestinal: non-tender, soft Musculoskeletal: other (rle dressing intake, c/d, RLE with ulceration of toes) Extremities: normal pulses 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, nl mental status, nl speech, nl strength Results Result Diagram: 03/19/1691903/19/16919 Results 24 hrs Laboratory Tests Test 03/18/16 12:44 03/18/16 21:07 03/19/16 01:35 03/19/16 08:45 Bedside Glucose 137 105 129 89 Test 03/19/16 09:20 Alanine Aminotransferase (ALT/SGPT) 26 Albumin 3.2 L Alkaline Phosphatase 95 Anion Gap 17 H Aspartate Amino Transf (AST/SGOT) 37 Basophils # 0.1 Basophils % 1.0 Blood Morphology Comment Blood Urea Nitrogen 35 H Calcium Level 8.2 L Carbon Dioxide Level 29 Chloride Level 97 Creatinine 4.11 H Direct Bilirubin 0.00 Eosinophils # 0.4 Eosinophils % 3.9 Glucose Level 83 Hematocrit 35.4 L Hemoglobin 11.8 L Indirect Bilirubin 0.4 Lymphocytes # 1.1 Lymphocytes % 11.6 L Mean Corpuscular Hemoglobin 29.6 Mean Corpuscular Hemoglobin Concent 33.2 Mean Corpuscular Volume 89.2 Mean Platelet Volume 6.7 #L Monocytes # 0.6 Monocytes % 6.8 Neutrophils # 7.0 Neutrophils % 76.7 Nucleated Red Blood Cells # 0.0 Nucleated Red Blood Cells % 0.0 Platelet Count 164 Potassium Level 4.0 Red Blood Count 3.97 L Red Cell Distribution Width 16.2 H Sodium Level 139 Total Bilirubin 0.4 Total Protein 6.7 White Blood Count 9.1 # Medications Medications Current Medications Heparin Sodium (Porcine) (Heparin (5000 Units/0.5 ml)) 5,000 unit Q8 SC Last administered on 03/19/16 05:39; Admin Dose 5,000 UNIT; Start 03/18/16 at 22:00 Acetaminophen (Tylenol Tab) 650 mg Q4H PRN PO PAIN AND OR ELEVATED TEMP; Start 03/18/16 at 14:30 Ascorbic Acid (Vitamin C) 500 mg DAILY PO Last administered on 03/19/16 08:50 ; Admin Dose 500 MG; Start 03/19/16 at 09:00 Aspirin (Aspirin) 81 mg DAILY PO Last administered on 03/19/16 08:50; Admin Dose 81 MG; Start 03/19/16 at 09:00 Atorvastatin Calcium (Lipitor) 20 mg QHS PO Last administered on 03/18/16 21: 08; Admin Dose 20 MG; Start 03/18/16 at 21:00 Bisacodyl (Dulcolax Supp) 10 mg DAILY PRN [place] BM; Start 03/18/16 at 14:30 Calcitriol (Rocaltrol) 0.25 mcg DAILY PO Last administered on 03/19/16 08:50; Admin Dose 0.25 MCG; Start 03/19/16 at 09:00 Epoetin Nito (Epogen (Esrd)) 10,000 units MONWEDFRI@17 SC Last administered on 03/19/16 03:45; Admin Dose 10,000 UNITS; Start 03/18/16 at 17:00 Insulin Glargine (Lantus) 20 unit QHS SC Last administered on 03/18/16 22:52; Admin Dose 20 UNIT; Start 03/18/16 at 21:00 Loratadine (Claritin) 10 mg DAILY PO Last administered on 03/19/16 08:50; Admin Dose 10 MG; Start 03/19/16 at 09:00 Multivit/Ca Carb/ B Cmplx/FA/Prenat (Sarika-Nahomi) 1 tab DAILY PO Last administered on 03/19/16 08:49; Admin Dose 1 TAB; Start 03/19/16 at 09:00 Saccharomyces Boulardii (Florastor) 500 mg BID PO Last administered on 08:49; Admin Dose 500 MG; Start 03/18/16 at 21:00 Tamsulosin HCl (Flomax) 0.4 mg HS PO Last administered on 03/18/16 21:08; Admin Dose 0.4 MG; Start 03/18/16 at 21:00 Diagnostic Test (Pha) (Accucheck) 1 ea 02 XX Last administered on 03/19/16 02: 00; Admin Dose 1 EA; Start 03/19/16 at 02:00 Miscellaneous Information 1 ea NOTE XX ; Start 03/18/16 at 15:00 Glucose (Glutose) 15 gm Q15M PRN PO DECREASED GLUCOSE; Start 03/18/16 at 15:00 Glucose (Glutose) 22.5 gm Q15M PRN PO DECREASED GLUCOSE; Start 03/18/16 at 15: 00 Dextrose (D50w Syringe) 25 ml Q15M PRN IV DECREASED GLUCOSE; Start 03/18/16 at 15:00 Dextrose (D50w Syringe) 50 ml Q15M PRN IV DECREASED GLUCOSE; Start 03/18/16 at 15:00 Glucagon (Glucagen) 1 mg Q15M PRN IM DECREASED GLUCOSE; Start 03/18/16 at 15:00 Glucose (Glutose) 15 gm Q15M PRN BUCCAL DECREASED GLUCOSE; Start 03/18/16 at 15 :00 Hydromorphone HCl (Dilaudid) 1 mg Q3H PRN IV PAIN; Start 03/19/16 at 12:00 Ondansetron HCl (Zofran Inj) 4 mg Q6H PRN IV NAUSEA AND/OR VOMITING; Start 02/21 at 10:00 AMY PEREZ Mar 19, 2016 10:49
[2016-03-19 11:55] LABS: IRON 13 ug/dl (35-150)
[2016-03-19 12:04] LABS: TOTAL IRON BINDING CAPACITY 180 ug/dl (241-421)
[2016-03-19] MEDS: TAMSULOSIN (SR) 0.4 MG CAP PO SCH (21:22)
[2016-03-19] MEDS: INSULIN GLARGINE [LANtus] 3 ML PEN SC SCH (21:27)
[2016-03-19] MEDS: ATORVASTATIN 20 MG TAB PO SCH (21:27)
[2016-03-20] VITALS (26 sets, daily range): BP systolic 125–179; BP diastolic 50–89; PULSE 83–96; RESP 15–22
[2016-03-20] MEDS: ACCUCHECK XX SCH (02:00)
[2016-03-20] MEDS: HYDROmorphONE 1 MG/ML SYG IV PRN ×3 (02:13→20:14)
[2016-03-20 05:33] LABS: BASOPHILS % 0.5 % (0.0-2.0); EOSINOPHILS # 0.4 10^3/ul (0.0-0.5); EOSINOPHILS % 5.3 % (0.0-7.0); HEMATOCRIT 30.2 % (42.0-52.0); HEMOGLOBIN 10.1 g/dl (14.0-18.0); LYMPHOCYTES # 1.3 10^3/ul (0.8-2.9); LYMPHOCYTES % 16.7 % (15.0-51.0); MEAN CORPUSCULAR HEMOGLOBIN 29.9 pg (29.0-33.0); MEAN CORPUSCULAR HGB CONC 33.5 g/dl (32.0-37.0); MEAN CORPUSCULAR VOLUME 89.2 fl (82.0-101.0); MEAN PLATELET VOLUME 7.3 fl (7.4-10.4); MONOCYTE # 0.6 10^3/ul (0.3-0.9); MONOCYTES % 7.8 % (0.0-11.0); NEUTROPHIL # 5.5 10^3/ul (1.6-7.5); NEUTROPHILS % 69.7 % (39.0-77.0); PLATELET COUNT 153 10^3/UL (140-440); RED BLOOD COUNT 3.39 10^6/ul (4.70-6.10); UNCORRECTED WBC 7.9 10^3/ul (4.8-10.8); WHITE BLOOD COUNT 7.9 10^3/ul (4.8-10.8)
[2016-03-20] MEDS: HEPARIN 5,000 UNIT/0.5 ML SYG SC SCH ×3 (05:37→22:51)
[2016-03-20 05:38] LABS: CONDITION 1; LH ANALYZER COMMENTS 1
[2016-03-20 05:48] LABS: ALBUMIN 2.7 g/dl (3.3-4.9)
[2016-03-20 05:49] LABS: POTASSIUM 4.1 mmol/L (3.5-5.1)
[2016-03-20 05:51] LABS: BILIRUBIN,INDIRECT 0.2 mg/dl (0-1.1); BILIRUBIN,TOTAL 0.2 mg/dl (0.2-1.3); CREATININE 5.5 mg/dl (0.61-1.24)
[2016-03-20 05:52] LABS: ALBUMIN/GLOBULIN RATIO 0.87; CALCIUM 8.2 mg/dl (8.4-10.2); TOTAL PROTEIN 5.8 g/dl (6.1-8.1)
[2016-03-20] MEDS: INSULIN ASPART [NOVOLOG] 3 ML PEN SC SCH ×5 (07:35→22:50)
--- NOTE | 2016-03-20 08:12 | PN ---
Date/Time of Note Date/Time of Note DATE: 03/20/16 TIME: 08:06 Assessment/Plan Lines/Catheters IV Catheter Type (from [email or web address] Peripheral IV Jimenez in Place (from [facility] [[email or web address] No Assessment/Plan Chief Complaint/Hosp Course -RLE atherosclerosis with gangrene: S/P SFA-Distal Anterior tibial artery In- Situ bypass -Apply Betadine to all incisions daily -PT/OT OOB and to chair, activity as tolerated, FWB with RLE -Will need Telemetry transfer 5[place], neurovascular checks' Q3-4hrs -Appreciate cardiology input -Appreciate nephrology input -Optimize vascular status (BP meds, sugar control, cholesterol, antiplatelets, diet, nutrition) -Discussed the plan, management and findings with pt and he understands -Thank you for allowing us to partake in the car5e of your patient, please call with any questions Problems: Subjective 24 Hr Interval Summary No new vascular events overnight, pt sat at the edge of the bed yesterday Exam/Review of Systems Vital Signs Vitals Vital Signs Date Time Temp Pulse Resp B/P Pulse Ox O2 Delivery O2 Flow Rate FiO2 03/20/16 07:00 83 16 128/52 97 Nasal Cannula 2.0 03/20/16 04:00 98.5 Intake and Output 03/19/16 03/19/16 03/20/16 15:00 23:00 07:00 Intake Total 260 ml 430 ml Output Total 170 ml 150 ml 200 ml Balance 90 ml 280 ml -200 ml Exam Free Text/Dictation A&Ox3 CTAB S1S2 present soft NTND BS+ RLE: palpable femoral pulse, palpable graft at the ankle, motor/sensory intact, cap refill 1-2 seconds, dependant dopplerable DP signal biphasic, All surgical dressings intact and dry-removed and incisions were all clean and dry and alec intact. LLE: palpable femoral pulse, motor/sensory intact, dressing intact and dry - will change today Results Result Diagram: 03/20/16 0500 03/20/16 0500 MARTÍNEZ ROSADO MD Mar 20, 2016 08:12
[2016-03-20] MEDS: CALCITRIOL 0.25 MCG CAP PO SCH (09:00)
[2016-03-20] MEDS: SACCHAROMYCES BOULARDII 250 MG CAP PO SCH ×2 (09:00→20:36)
[2016-03-20] MEDS: CREON (24K-76K-120K) 1 CAP PO SCH ×4 (09:00→17:52)
[2016-03-20] MEDS: ASCORBIC ACID 500 MG TAB PO SCH (09:01)
[2016-03-20] MEDS: ASPIRIN 81 MG TAB PO SCH (09:01)
[2016-03-20] MEDS: LORATADINE 10 MG TAB PO SCH (09:01)
[2016-03-20] MEDS: CALCIUM ACETATE 667 MG CAP PO SCH ×4 (09:01→17:52)
[2016-03-20] MEDS: MULTIVIT/CA CARB/B CMPLX/FA TAB PO SCH (09:01)
--- NOTE | 2016-03-20 14:41 | PN ---
Date/Time of Note Date/Time of Note DATE: 03/20/16 TIME: 14:37 Assessment/Plan VTE Prophylaxis VTE Prophylaxis Intervention: contraindicated VTE Contraindication Reason: amputee, peripheral vascular disease Lines/Catheters [facility] Mid Line Urinary Cath still in place: No Assessment/Plan Chief Complaint/Hosp Course 1. he is 2 days post op R leg Femoral to tibial artery bypass . L leg stump debridement . 2. ESRD , hemodialysis ordered for today , He is MWF dialysis . 3. DM 4. severe postural hypotension 5. anemia of CKD . Problems: Subjective 24 Hr Interval Summary Free Text/Dictation He was transferred from the ICU today . He is awake and responsive . Constitutional: improved, no complaints Respiratory: no complaints Cardiovascular: no complaints Gastrointestinal: no complaints Exam/Review of Systems Vital Signs Vitals Vital Signs Date Time Temp Pulse Resp B/P Pulse Ox O2 Delivery O2 Flow Rate FiO2 03/20/16 12:27 98.9 91 17 176/74 97 03/20/16 11:00 Nasal Cannula 2.0 Intake and Output 03/19/16 03/19/16 03/20/16 15:00 23:00 07:00 Intake Total 260 ml 430 ml Output Total 170 ml 150 ml 200 ml Balance 90 ml 280 ml -200 ml Results Result Diagram: 03/20/16 0500 03/20/16 0500 Results 24 hrs Laboratory Tests Test 03/19/16 18:30 03/19/16 21:20 03/20/16 05:00 03/20/16 08:49 Bedside Glucose 123 147 117 Alanine Aminotransferase (ALT/SGPT) 25 Albumin 2.7 L Albumin/Globulin Ratio 0.87 Alkaline Phosphatase 107 Anion Gap 16 Aspartate Amino Transf (AST/SGOT) 29 Basophils # 0.0 Basophils % 0.5 Blood Morphology Comment Blood Urea Nitrogen 50 H Calcium Level 8.2 L Carbon Dioxide Level 29 Chloride Level 95 L Creatinine 5.50 H Direct Bilirubin 0.00 Eosinophils # 0.4 Eosinophils % 5.3 Globulin 3.10 Glucose Level 131 # Hematocrit 30.2 L Hemoglobin 10.1 L Indirect Bilirubin 0.2 Lymphocytes # 1.3 Lymphocytes % 16.7 Mean Corpuscular Hemoglobin 29.9 Mean Corpuscular Hemoglobin Concent 33.5 Mean Corpuscular Volume 89.2 Mean Platelet Volume 7.3 L Monocytes # 0.6 Monocytes % 7.8 Neutrophils # 5.5 Neutrophils % 69.7 Nucleated Red Blood Cells # 0.0 Nucleated Red Blood Cells % 0.0 Platelet Count 153 Potassium Level 4.1 Red Blood Count 3.39 L Red Cell Distribution Width 16.0 H Sodium Level 136 Total Bilirubin 0.2 Total Protein 5.8 L White Blood Count 7.9 Test 03/20/16 12:39 Bedside Glucose 148 Medications Medications Current Medications Heparin Sodium (Porcine) (Heparin (5000 Units/0.5 ml)) 5,000 unit Q8 SC Last administered on 03/20/16 13:45; Admin Dose 5,000 UNIT; Start 03/18/16 at 22:00 Acetaminophen (Tylenol Tab) 650 mg Q4H PRN PO PAIN AND OR ELEVATED TEMP; Start 03/18/16 at 14:30 Ascorbic Acid (Vitamin C) 500 mg DAILY PO Last administered on 03/20/16 09:01 ; Admin Dose 500 MG; Start 03/19/16 at 09:00 Aspirin (Aspirin) 81 mg DAILY PO Last administered on 03/20/16 09:01; Admin Dose 81 MG; Start 03/19/16 at 09:00 Atorvastatin Calcium (Lipitor) 20 mg QHS PO Last administered on 03/19/16 21: 27; Admin Dose 20 MG; Start 03/18/16 at 21:00 Bisacodyl (Dulcolax Supp) 10 mg DAILY PRN [place] BM; Start 03/18/16 at 14:30 Calcitriol (Rocaltrol) 0.25 mcg DAILY PO Last administered on 03/20/16 09:00; Admin Dose 0.25 MCG; Start 03/19/16 at 09:00 Epoetin Nito (Epogen (Esrd)) 10,000 units MONWEDFRI@17 SC Last administered on 03/19/16 03:45; Admin Dose 10,000 UNITS; Start 03/18/16 at 17:00 Insulin Glargine (Lantus) 20 unit QHS SC Last administered on 03/19/16 21:27; Admin Dose 20 UNIT; Start 03/18/16 at 21:00 Loratadine (Claritin) 10 mg DAILY PO Last administered on 03/20/16 09:01; Admin Dose 10 MG; Start 03/19/16 at 09:00 Multivit/Ca Carb/ B Cmplx/FA/Prenat (Sarika-Nahomi) 1 tab DAILY PO Last administered on 03/20/16 09:01; Admin Dose 1 TAB; Start 03/19/16 at 09:00 Saccharomyces Boulardii (Florastor) 500 mg BID PO Last administered on 09:00; Admin Dose 500 MG; Start 03/18/16 at 21:00 Tamsulosin HCl (Flomax) 0.4 mg HS PO Last administered on 03/19/16 21:22; Admin Dose 0.4 MG; Start 03/18/16 at 21:00 Diagnostic Test (Pha) (Accucheck) 1 ea 02 XX Last administered on 03/19/16 02: 00; Admin Dose 1 EA; Start 03/19/16 at 02:00 Miscellaneous Information 1 ea NOTE XX ; Start 03/18/16 at 15:00 Glucose (Glutose) 15 gm Q15M PRN PO DECREASED GLUCOSE; Start 03/18/16 at 15:00 Glucose (Glutose) 22.5 gm Q15M PRN PO DECREASED GLUCOSE; Start 03/18/16 at 15: 00 Dextrose (D50w Syringe) 25 ml Q15M PRN IV DECREASED GLUCOSE; Start 03/18/16 at 15:00 Dextrose (D50w Syringe) 50 ml Q15M PRN IV DECREASED GLUCOSE; Start 03/18/16 at 15:00 Glucagon (Glucagen) 1 mg Q15M PRN IM DECREASED GLUCOSE; Start 03/18/16 at 15:00 Glucose (Glutose) 15 gm Q15M PRN BUCCAL DECREASED GLUCOSE; Start 03/18/16 at 15 :00 Hydromorphone HCl (Dilaudid) 1 mg Q3H PRN IV PAIN Last administered on 08:51; Admin Dose 1 MG; Start 03/19/16 at 12:00 Ondansetron HCl (Zofran Inj) 4 mg Q6H PRN IV NAUSEA AND/OR VOMITING; Start 02/21 at 10:00 CELESTE BHATT MD Mar 20, 2016 14:41
[2016-03-20] MEDS ORDERED: HYDROCODONE/APAP (5/325) TAB PO PRN (15:00)
[2016-03-20] MEDS: ATORVASTATIN 20 MG TAB PO SCH (20:37)
[2016-03-20] MEDS: TAMSULOSIN (SR) 0.4 MG CAP PO SCH (20:39)
[2016-03-20] MEDS: INSULIN GLARGINE [LANtus] 3 ML PEN SC SCH (23:26)
[2016-03-20] MEDS: EPOETIN 10000 UNITS/1 ML INJ (ESRD) SC SCH (23:28)
[2016-03-21] VITALS (13 sets, daily range): BP systolic 133–176; BP diastolic 59–89; PULSE 81–96; RESP 20
[2016-03-21] MEDS: ACCUCHECK XX SCH (02:45)
[2016-03-21] MEDS: HYDROmorphONE 1 MG/ML SYG IV PRN (06:28)
[2016-03-21] MEDS: HEPARIN 5,000 UNIT/0.5 ML SYG SC SCH ×3 (07:19→21:21)
[2016-03-21] MEDS: CALCIUM ACETATE 667 MG CAP PO SCH ×3 (09:08→18:13)
[2016-03-21] MEDS: LORATADINE 10 MG TAB PO SCH (09:08)
[2016-03-21] MEDS: CREON (24K-76K-120K) 1 CAP PO SCH ×3 (09:08→18:13)
[2016-03-21] MEDS: MULTIVIT/CA CARB/B CMPLX/FA TAB PO SCH (09:09)
[2016-03-21] MEDS: ASPIRIN 81 MG TAB PO SCH (09:09)
[2016-03-21] MEDS: CALCITRIOL 0.25 MCG CAP PO SCH (09:09)
[2016-03-21] MEDS: ASCORBIC ACID 500 MG TAB PO SCH (09:09)
[2016-03-21] MEDS: SACCHAROMYCES BOULARDII 250 MG CAP PO SCH ×2 (09:09→21:09)
[2016-03-21] MEDS: INSULIN ASPART [NOVOLOG] 3 ML PEN SC SCH ×4 (09:10→21:00)
--- NOTE | 2016-03-21 10:27 | PN ---
Date/Time of Note Date/Time of Note DATE: 03/21/16 TIME: 10:24 Assessment/Plan VTE Prophylaxis VTE Prophylaxis Intervention: other Lines/Catheters IV Catheter Type (from Nrs): Saline Lock Urinary Cath still in place: No Assessment/Plan Assessment/Plan 1. Post right lower extrem vasc bypass 2. ESRD, next HD Wednesday pending labs 3. DM, control is adeuate 4. Severe postural hypotension, will observe and consider Midodrine 5. Anemia sec ckd, stable Subjective 24 Hr Interval Summary Respiratory: No shortness of breath Cardiovascular: No chest pain Gastrointestinal: no complaints Genitourinary: no complaints Neurologic: other (mild right foot pain) Exam/Review of Systems Vital Signs Vitals Vital Signs Date Time Temp Pulse Resp B/P Pulse Ox O2 Delivery O2 Flow Rate FiO2 03/21/16 08:20 81 03/21/16 07:49 97.7 133/63 97 03/21/16 04:03 20 03/20/16 21:13 2.0 03/20/16 20:00 Nasal Cannula Intake and Output 03/20/16 03/20/16 03/21/16 15:00 23:00 07:00 Intake Total 1200 ml Output Total 3150 ml 200 ml Balance -1950 ml -200 ml Exam Neck: No jvd Respiratory: clear to auscultation Cardiovascular: regular rate and rhythm Gastrointestinal: soft Extremities: No edema (brawny edema right foot, no calf tend) Results Result Diagram: 03/20/16 0500 03/20/16 0500 Results 24 hrs Laboratory Tests Test 03/20/16 12:39 03/20/16 18:04 03/20/16 22:30 03/21/16 02:48 Bedside Glucose 148 177 197 186 Test 03/21/16 07:58 Bedside Glucose 142 Medications Medications Current Medications Heparin Sodium (Porcine) (Heparin (5000 Units/0.5 ml)) 5,000 unit Q8 SC Last administered on 03/21/16 07:19; Admin Dose 5,000 UNIT; Start 03/18/16 at 22:00 Acetaminophen (Tylenol Tab) 650 mg Q4H PRN PO PAIN AND OR ELEVATED TEMP; Start 03/18/16 at 14:30 Ascorbic Acid (Vitamin C) 500 mg DAILY PO Last administered on 03/21/16 09:09 ; Admin Dose 500 MG; Start 03/19/16 at 09:00 Aspirin (Aspirin) 81 mg DAILY PO Last administered on 03/21/16 09:09; Admin Dose 81 MG; Start 03/19/16 at 09:00 Atorvastatin Calcium (Lipitor) 20 mg QHS PO Last administered on 03/20/16 20: 37; Admin Dose 20 MG; Start 03/18/16 at 21:00 Bisacodyl (Dulcolax Supp) 10 mg DAILY PRN [place] BM; Start 03/18/16 at 14:30 Calcitriol (Rocaltrol) 0.25 mcg DAILY PO Last administered on 03/21/16 09:09; Admin Dose 0.25 MCG; Start 03/19/16 at 09:00 Epoetin Nito (Epogen (Esrd)) 10,000 units MONWEDFRI@17 SC Last administered on 03/20/16 23:28; Admin Dose 10,000 UNITS; Start 03/18/16 at 17:00 Insulin Glargine (Lantus) 20 unit QHS SC Last administered on 03/20/16 23:26; Admin Dose 20 UNIT; Start 03/18/16 at 21:00 Loratadine (Claritin) 10 mg DAILY PO Last administered on 03/21/16 09:08; Admin Dose 10 MG; Start 03/19/16 at 09:00 Multivit/Ca Carb/ B Cmplx/FA/Prenat (Sarika-Nahomi) 1 tab DAILY PO Last administered on 03/21/16 09:09; Admin Dose 1 TAB; Start 03/19/16 at 09:00 Saccharomyces Boulardii (Florastor) 500 mg BID PO Last administered on 09:09; Admin Dose 500 MG; Start 03/18/16 at 21:00 Tamsulosin HCl (Flomax) 0.4 mg HS PO Last administered on 03/20/16 20:39; Admin Dose 0.4 MG; Start 03/18/16 at 21:00 Diagnostic Test (Pha) (Accucheck) 1 ea 02 XX Last administered on 03/21/16 02: 45; Admin Dose 1 EA; Start 03/19/16 at 02:00 Miscellaneous Information 1 ea NOTE XX ; Start 03/18/16 at 15:00 Glucose (Glutose) 15 gm Q15M PRN PO DECREASED GLUCOSE; Start 03/18/16 at 15:00 Glucose (Glutose) 22.5 gm Q15M PRN PO DECREASED GLUCOSE; Start 03/18/16 at 15: 00 Dextrose (D50w Syringe) 25 ml Q15M PRN IV DECREASED GLUCOSE; Start 03/18/16 at 15:00 Dextrose (D50w Syringe) 50 ml Q15M PRN IV DECREASED GLUCOSE; Start 03/18/16 at 15:00 Glucagon (Glucagen) 1 mg Q15M PRN IM DECREASED GLUCOSE; Start 03/18/16 at 15:00 Glucose (Glutose) 15 gm Q15M PRN BUCCAL DECREASED GLUCOSE; Start 03/18/16 at 15 :00 Hydromorphone HCl (Dilaudid) 1 mg Q3H PRN IV PAIN Last administered on t 06:28; Admin Dose 1 MG; Start 03/19/16 at 12:00 Ondansetron HCl (Zofran Inj) 4 mg Q6H PRN IV NAUSEA AND/OR VOMITING; Start 02/21 at 10:00 Acetaminophen/ Hydrocodone Bitart ([place] (5/325)) 1 tab Q4H PRN PO PAIN; Start 03/20/16 at 15:00 ARLETH JONES MD Mar 21, 2016 10:27
--- NOTE | 2016-03-21 11:36 | PN ---
Date/Time of Note Date/Time of Note DATE: 03/21/16 TIME: 11:33 Assessment/Plan Lines/Catheters IV Catheter Type (from Nrs): Saline Lock Jimenez in Place (from Nrs): No Assessment/Plan Chief Complaint/Hosp Course -RLE atherosclerosis with gangrene: S/P SFA-Distal Anterior tibial artery In- Situ bypass -Apply Betadine to all incisions daily -Apply collagen based dressing to LLE BKA every other day -PT/OT OOB and to chair, activity as tolerated, FWB with RLE -Continue neurovascular checks' Q3-4hrs -Appreciate cardiology input -Appreciate nephrology input -Optimize vascular status (BP meds, sugar control, cholesterol, antiplatelets, diet, nutrition) -Discussed the plan, management and findings with pt and he understands -Thank you for allowing us to partake in the car5e of your patient, please call with any questions Problems: Subjective 24 Hr Interval Summary no new vascular issues overnight, PT/OT Exam/Review of Systems Vital Signs Vitals Vital Signs Date Time Temp Pulse Resp B/P Pulse Ox O2 Delivery O2 Flow Rate FiO2 03/21/16 08:20 81 03/21/16 08:20 Nasal Cannula 1.0 03/21/16 07:49 97.7 133/63 97 03/21/16 04:03 20 Intake and Output 03/20/16 03/20/16 03/21/16 15:00 23:00 07:00 Intake Total 1200 ml Output Total 3150 ml 200 ml Balance -1950 ml -200 ml Exam Free Text/Dictation A&Ox3 CTAB S1S2 present soft NTND BS+ RLE: palpable femoral pulse, palpable graft at the ankle, motor/sensory intact, cap refill 1-2 seconds, dependant dopplerable DP signal biphasic, All surgical dressings intact and dry-removed and incisions were all clean and dry and alec intact. LLE: palpable femoral pulse, motor/sensory intact, dressing intact and dry - will change today Results Result Diagram: 03/20/16 0500 03/20/16 0500 MARTÍNEZ ROSADO MD Mar 21, 2016 11:35
[2016-03-21] MEDS: TAMSULOSIN (SR) 0.4 MG CAP PO SCH (21:08)
[2016-03-21] MEDS: ATORVASTATIN 20 MG TAB PO SCH (21:09)
[2016-03-21] MEDS: INSULIN GLARGINE [LANtus] 3 ML PEN SC SCH (21:22)
[2016-03-22] VITALS (12 sets, daily range): BP systolic 128–185; BP diastolic 72–77; PULSE 86–94; RESP 18–20
[2016-03-22] MEDS: ACCUCHECK XX SCH (02:00)
[2016-03-22] MEDS: HEPARIN 5,000 UNIT/0.5 ML SYG SC SCH ×3 (06:16→21:37)
[2016-03-22] MEDS: INSULIN ASPART [NOVOLOG] 3 ML PEN SC SCH ×4 (07:55→21:38)
[2016-03-22] MEDS: CREON (24K-76K-120K) 1 CAP PO SCH ×3 (08:11→18:12)
[2016-03-22] MEDS: ASPIRIN 81 MG TAB PO SCH (08:12)
[2016-03-22] MEDS: CALCIUM ACETATE 667 MG CAP PO SCH ×3 (08:12→18:12)
[2016-03-22] MEDS: LORATADINE 10 MG TAB PO SCH (08:12)
[2016-03-22] MEDS: MULTIVIT/CA CARB/B CMPLX/FA TAB PO SCH (08:13)
[2016-03-22] MEDS: SACCHAROMYCES BOULARDII 250 MG CAP PO SCH ×2 (08:13→21:25)
[2016-03-22] MEDS: ASCORBIC ACID 500 MG TAB PO SCH (08:16)
[2016-03-22] MEDS: CALCITRIOL 0.25 MCG CAP PO SCH (08:17)
--- NOTE | 2016-03-22 11:18 | CONS ---
Date/Time of Note Date/Time of Note DATE: 03/22/16 TIME: : Assessment/Plan Assessment/Plan Additional Assessment/Plan 1. Post right lower extrem vasc bypass 2. ESRD, next HD tomm 3. DM, control is adeuate 4. Severe postural hypotension, will check postural BP's 5. Anemia sec ckd, stable Consultation Date/Type/Reason Admit Date/Time Mar 18, 2016 at 05:22 Initial Consult Date 03/18/16 Type of Consultation: Cardiolgoy Referring Provider: MARTÍNEZ ROSADO MD Detailed Summary Respiratory: No shortness of breath Cardiovascular: No chest pain, No lightheadedness Genitourinary: no complaints Neurologic: other (less discomfort right lower extrem) Exam/Review of Systems Vital Signs Vitals Vital Signs Date Time Temp Pulse Resp B/P Pulse Ox O2 Delivery O2 Flow Rate FiO2 03/22/16 10:44 89 03/22/16 07:52 97.3 18 162/72 95 03/22/16 07:20 Nasal Cannula 1.0 03/21/16 17:47 21 Intake and Output 03/21/16 03/21/16 03/22/16 15:00 23:00 07:00 Intake Total 720 ml Output Total 300 ml Balance 420 ml Exam Neck: jvd Respiratory: clear to auscultation Cardiovascular: regular rate and rhythm Gastrointestinal: soft Extremities: No edema (brawny edema right lower extrem, no calf tend) Results Result Diagram: 03/20/16 0500 03/20/16 0500 Results 24 hrs Laboratory Tests Test 03/21/16 12:32 03/21/16 17:28 03/21/16 21:11 03/22/16 08:04 Bedside Glucose 213 161 171 137 Medications Medications Current Medications Heparin Sodium (Porcine) (Heparin (5000 Units/0.5 ml)) 5,000 unit Q8 SC Last administered on 03/22/16 06:16; Admin Dose 5,000 UNIT; Start 03/18/16 at 22:00 Acetaminophen (Tylenol Tab) 650 mg Q4H PRN PO PAIN AND OR ELEVATED TEMP; Start 03/18/16 at 14:30 Ascorbic Acid (Vitamin C) 500 mg DAILY PO Last administered on 03/22/16 08:16 ; Admin Dose 500 MG; Start 03/19/16 at 09:00 Aspirin (Aspirin) 81 mg DAILY PO Last administered on 03/22/16 08:12; Admin Dose 81 MG; Start 03/19/16 at 09:00 Atorvastatin Calcium (Lipitor) 20 mg QHS PO Last administered on 03/21/16 21: 09; Admin Dose 20 MG; Start 03/18/16 at 21:00 Bisacodyl (Dulcolax Supp) 10 mg DAILY PRN [place] BM; Start 03/18/16 at 14:30 Calcitriol (Rocaltrol) 0.25 mcg DAILY PO Last administered on 03/22/16 08:17; Admin Dose 0.25 MCG; Start 03/19/16 at 09:00 Epoetin Nito (Epogen (Esrd)) 10,000 units MONWEDFRI@17 SC Last administered on 03/20/16 23:28; Admin Dose 10,000 UNITS; Start 03/18/16 at 17:00 Insulin Glargine (Lantus) 20 unit QHS SC Last administered on 03/21/16 21:22; Admin Dose 20 UNIT; Start 03/18/16 at 21:00 Loratadine (Claritin) 10 mg DAILY PO Last administered on 03/22/16 08:12; Admin Dose 10 MG; Start 03/19/16 at 09:00 Multivit/Ca Carb/ B Cmplx/FA/Prenat (Sarika-Nahomi) 1 tab DAILY PO Last administered on 03/22/16 08:13; Admin Dose 1 TAB; Start 03/19/16 at 09:00 Saccharomyces Boulardii (Florastor) 500 mg BID PO Last administered on 08:13; Admin Dose 500 MG; Start 03/18/16 at 21:00 Tamsulosin HCl (Flomax) 0.4 mg HS PO Last administered on 03/21/16 21:08; Admin Dose 0.4 MG; Start 03/18/16 at 21:00 Diagnostic Test (Pha) (Accucheck) 1 ea 02 XX Last administered on 03/21/16 02: 45; Admin Dose 1 EA; Start 03/19/16 at 02:00 Miscellaneous Information 1 ea NOTE XX ; Start 03/18/16 at 15:00 Glucose (Glutose) 15 gm Q15M PRN PO DECREASED GLUCOSE; Start 03/18/16 at 15:00 Glucose (Glutose) 22.5 gm Q15M PRN PO DECREASED GLUCOSE; Start 03/18/16 at 15: 00 Dextrose (D50w Syringe) 25 ml Q15M PRN IV DECREASED GLUCOSE; Start 03/18/16 at 15:00 Dextrose (D50w Syringe) 50 ml Q15M PRN IV DECREASED GLUCOSE; Start 03/18/16 at 15:00 Glucagon (Glucagen) 1 mg Q15M PRN IM DECREASED GLUCOSE; Start 03/18/16 at 15:00 Glucose (Glutose) 15 gm Q15M PRN BUCCAL DECREASED GLUCOSE; Start 03/18/16 at 15 :00 Hydromorphone HCl (Dilaudid) 1 mg Q3H PRN IV PAIN Last administered on 06:28; Admin Dose 1 MG; Start 03/19/16 at 12:00 Ondansetron HCl (Zofran Inj) 4 mg Q6H PRN IV NAUSEA AND/OR VOMITING; Start 02/21 at 10:00 Acetaminophen/ Hydrocodone Bitart ([place] (5/325)) 1 tab Q4H PRN PO PAIN; Start 03/20/16 at 15:00 Hydralazine HCl (Apresoline) 25 mg Q4 PRN PO ELEVATED BLOOD PRESSURE Last administered on 03/22/16 08:24; Admin Dose 25 MG; Start 03/22/16 at 00:30 ARLETH JONES MD Mar 22, 2016 11:18
[2016-03-22] MEDS: TAMSULOSIN (SR) 0.4 MG CAP PO SCH (21:25)
[2016-03-22] MEDS: ATORVASTATIN 20 MG TAB PO SCH (21:25)
[2016-03-22] MEDS: INSULIN GLARGINE [LANtus] 3 ML PEN SC SCH (21:37)
[2016-03-23] VITALS (20 sets, daily range): BP systolic 110–187; BP diastolic 64–80; PULSE 79–100; RESP 18–22
[2016-03-23] MEDS: ACCUCHECK XX SCH (01:16)
[2016-03-23] MEDS: HEPARIN 5,000 UNIT/0.5 ML SYG SC SCH ×3 (06:01→22:38)
[2016-03-23] MEDS: INSULIN ASPART [NOVOLOG] 3 ML PEN SC SCH ×4 (07:55→21:00)
[2016-03-23] MEDS: CALCIUM ACETATE 667 MG CAP PO SCH ×3 (08:39→17:37)
[2016-03-23] MEDS: LORATADINE 10 MG TAB PO SCH (08:39)
[2016-03-23] MEDS: CREON (24K-76K-120K) 1 CAP PO SCH ×3 (08:39→17:37)
[2016-03-23] MEDS: ASPIRIN 81 MG TAB PO SCH (08:39)
[2016-03-23] MEDS: MULTIVIT/CA CARB/B CMPLX/FA TAB PO SCH (08:39)
[2016-03-23] MEDS: ASCORBIC ACID 500 MG TAB PO SCH (08:39)
[2016-03-23] MEDS: CALCITRIOL 0.25 MCG CAP PO SCH (08:39)
--- NOTE | 2016-03-23 08:41 | PN ---
Date/Time of Note Date/Time of Note DATE: 03/23/16 TIME: 08:40 Assessment/Plan Lines/Catheters IV Catheter Type (from Nrs): Saline Lock Jimenez in Place (from Nrs): No Assessment/Plan Chief Complaint/Hosp Course -RLE atherosclerosis with gangrene: S/P SFA-Distal Anterior tibial artery In- Situ bypass -Apply Betadine to all incisions daily -Apply collagen based dressing to LLE BKA every other day -PT/OT OOB and to chair, activity as tolerated, FWB with RLE -Limit blood draws with HD sessions -Continue neurovascular checks' Q3-4hrs -Appreciate cardiology input -Appreciate nephrology input -Optimize vascular status (BP meds, sugar control, cholesterol, antiplatelets, diet, nutrition) -Discussed the plan, management and findings with pt and he understands -Thank you for allowing us to partake in the car5e of your patient, please call with any questions Problems: Subjective 24 Hr Interval Summary no new vascular events overnight Exam/Review of Systems Vital Signs Vitals Vital Signs Date Time Temp Pulse Resp B/P Pulse Ox O2 Delivery O2 Flow Rate FiO2 03/23/16 08:38 82 03/23/16 08:27 97.6 20 163/72 92 03/23/16 05:25 2.0 03/22/16 19:45 Nasal Cannula 03/21/16 17:47 21 Intake and Output 03/22/16 03/22/16 03/23/16 15:00 23:00 07:00 Intake Total 800 ml 600 ml Output Total 350 ml 150 ml Balance 450 ml 450 ml Exam Free Text/Dictation A&Ox3 CTAB S1S2 present soft NTND BS+ RLE: palpable femoral pulse, palpable graft at the ankle, motor/sensory intact, cap refill 1-2 seconds, dependant dopplerable DP signal biphasic, All surgical dressings intact and dry-removed and incisions were all clean, dry and alec intact. LLE: palpable femoral pulse, motor/sensory intact, dressing intact and dry - will change today Results Result Diagram: 03/20/16 0500 03/20/16 0500 MARTÍNEZ ROSADO MD Mar 23, 2016 08:41
[2016-03-23] MEDS: SACCHAROMYCES BOULARDII 250 MG CAP PO SCH ×2 (10:03→22:31)
--- NOTE | 2016-03-23 12:22 | PN ---
Date/Time of Note Date/Time of Note DATE: 03/23/16 TIME: 12:19 Assessment/Plan VTE Prophylaxis VTE Prophylaxis Intervention: other Lines/Catheters IV Catheter Type (from Nrs): Saline Lock Urinary Cath still in place: No Assessment/Plan Assessment/Plan 1. CKD, to be hd today. 2. Peripheral vasc dz, S/P surgery right leg 3. Elevated BP supine, will cautiously give lo dose amlodipine 4. Labs pending Subjective 24 Hr Interval Summary Respiratory: cough (that is not productive), No shortness of breath Cardiovascular: No chest pain Genitourinary: no complaints Neurologic: other (rigt leg pain is less) Exam/Review of Systems Vital Signs Vitals Vital Signs Date Time Temp Pulse Resp B/P Pulse Ox O2 Delivery O2 Flow Rate FiO2 03/23/16 11:50 98.7 85 18 187/79 91 Nasal Cannula 3.0 03/21/16 17:47 21 Intake and Output 03/22/16 03/22/16 03/23/16 15:00 23:00 07:00 Intake Total 800 ml 600 ml Output Total 350 ml 150 ml Balance 450 ml 450 ml Exam Neck: No jvd Respiratory: clear to auscultation Cardiovascular: regular rate and rhythm Gastrointestinal: soft Extremities: No edema (is less then yesterday) Results Result Diagram: 03/20/16 0500 03/20/16 0500 Results 24 hrs Laboratory Tests Test 03/22/16 12:52 03/22/16 18:13 03/22/16 21:18 03/23/16 01:11 Bedside Glucose 146 151 186 230 H Test 03/23/16 07:40 03/23/16 11:39 Bedside Glucose 99 154 Medications Medications Current Medications Heparin Sodium (Porcine) (Heparin (5000 Units/0.5 ml)) 5,000 unit Q8 SC Last administered on 03/23/16 06:01; Admin Dose 5,000 UNIT; Start 03/18/16 at 22:00 Acetaminophen (Tylenol Tab) 650 mg Q4H PRN PO PAIN AND OR ELEVATED TEMP; Start 03/18/16 at 14:30 Ascorbic Acid (Vitamin C) 500 mg DAILY PO Last administered on 03/23/16 08:39 ; Admin Dose 500 MG; Start 03/19/16 at 09:00 Aspirin (Aspirin) 81 mg DAILY PO Last administered on 03/23/16 08:39; Admin Dose 81 MG; Start 03/19/16 at 09:00 Atorvastatin Calcium (Lipitor) 20 mg QHS PO Last administered on 03/22/16 21: 25; Admin Dose 20 MG; Start 03/18/16 at 21:00 Bisacodyl (Dulcolax Supp) 10 mg DAILY PRN [place] BM; Start 03/18/16 at 14:30 Calcitriol (Rocaltrol) 0.25 mcg DAILY PO Last administered on 03/23/16 08:39; Admin Dose 0.25 MCG; Start 03/19/16 at 09:00 Epoetin Nito (Epogen (Esrd)) 10,000 units MONWEDFRI@17 SC Last administered on 03/20/16 23:28; Admin Dose 10,000 UNITS; Start 03/18/16 at 17:00 Insulin Glargine (Lantus) 20 unit QHS SC Last administered on 03/22/16 21:37; Admin Dose 20 UNIT; Start 03/18/16 at 21:00 Loratadine (Claritin) 10 mg DAILY PO Last administered on 03/23/16 08:39; Admin Dose 10 MG; Start 03/19/16 at 09:00 Multivit/Ca Carb/ B Cmplx/FA/Prenat (Sarika-Nahomi) 1 tab DAILY PO Last administered on 03/23/16 08:39; Admin Dose 1 TAB; Start 03/19/16 at 09:00 Saccharomyces Boulardii (Florastor) 500 mg BID PO Last administered on 10:03; Admin Dose 500 MG; Start 03/18/16 at 21:00 Tamsulosin HCl (Flomax) 0.4 mg HS PO Last administered on 03/22/16 21:25; Admin Dose 0.4 MG; Start 03/18/16 at 21:00 Diagnostic Test (Pha) (Accucheck) 1 ea 02 XX Last administered on 03/23/16 01: 16; Admin Dose 1 EA; Start 03/19/16 at 02:00 Miscellaneous Information 1 ea NOTE XX ; Start 03/18/16 at 15:00 Glucose (Glutose) 15 gm Q15M PRN PO DECREASED GLUCOSE; Start 03/18/16 at 15:00 Glucose (Glutose) 22.5 gm Q15M PRN PO DECREASED GLUCOSE; Start 03/18/16 at 15: 00 Dextrose (D50w Syringe) 25 ml Q15M PRN IV DECREASED GLUCOSE; Start 03/18/16 at 15:00 Dextrose (D50w Syringe) 50 ml Q15M PRN IV DECREASED GLUCOSE; Start 03/18/16 at 15:00 Glucagon (Glucagen) 1 mg Q15M PRN IM DECREASED GLUCOSE; Start 03/18/16 at 15:00 Glucose (Glutose) 15 gm Q15M PRN BUCCAL DECREASED GLUCOSE; Start 03/18/16 at 15 :00 Hydromorphone HCl (Dilaudid) 1 mg Q3H PRN IV PAIN Last administered on 06:28; Admin Dose 1 MG; Start 03/19/16 at 12:00 Ondansetron HCl (Zofran Inj) 4 mg Q6H PRN IV NAUSEA AND/OR VOMITING; Start 02/21 at 10:00 Acetaminophen/ Hydrocodone Bitart ([place] (5/325)) 1 tab Q4H PRN PO PAIN; Start 03/20/16 at 15:00 Hydralazine HCl (Apresoline) 25 mg Q4 PRN PO ELEVATED BLOOD PRESSURE Last administered on 03/23/16 10:32; Admin Dose 25 MG; Start 03/22/16 at 00:30 ARLETH JONES MD Mar 23, 2016 12:22
[2016-03-23] MEDS: AMLODIPINE 2.5 MG TAB PO SCH ×2 (12:41→22:31)
[2016-03-23 19:24] LABS: BASOPHILS % 0.4 % (0.0-2.0); EOSINOPHILS # 0.4 10^3/ul (0.0-0.5); EOSINOPHILS % 5.2 % (0.0-7.0); HEMATOCRIT 33.7 % (42.0-52.0); LYMPHOCYTES # 1.1 10^3/ul (0.8-2.9); LYMPHOCYTES % 15.1 % (15.0-51.0); MEAN CORPUSCULAR HEMOGLOBIN 29.1 pg (29.0-33.0); MEAN CORPUSCULAR HGB CONC 32.7 g/dl (32.0-37.0); MEAN CORPUSCULAR VOLUME 89.1 fl (82.0-101.0); MONOCYTE # 0.6 10^3/ul (0.3-0.9); MONOCYTES % 8.3 % (0.0-11.0); NEUTROPHIL # 5.2 10^3/ul (1.6-7.5); PLATELET COUNT 228 10^3/UL (140-440); RED BLOOD COUNT 3.78 10^6/ul (4.70-6.10); UNCORRECTED WBC 7.4 10^3/ul (4.8-10.8); WHITE BLOOD COUNT 7.4 10^3/ul (4.8-10.8)
[2016-03-23 19:29] LABS: CONDITION 1; LH ANALYZER COMMENTS 1
[2016-03-23 19:37] LABS: CREATININE 7.15 mg/dl (0.61-1.24)
[2016-03-23 19:38] LABS: PHOSPHORUS 6.2 mg/dl (2.5-4.9)
[2016-03-23] MEDS: EPOETIN 10000 UNITS/1 ML INJ (ESRD) SC SCH (21:25)
[2016-03-23] MEDS: INSULIN GLARGINE [LANtus] 3 ML PEN SC SCH (21:29)
[2016-03-23] MEDS: TAMSULOSIN (SR) 0.4 MG CAP PO SCH (22:31)
[2016-03-23] MEDS: ATORVASTATIN 20 MG TAB PO SCH (22:32)
[2016-03-24] VITALS (12 sets, daily range): BP systolic 127–179; BP diastolic 56–88; PULSE 79–86; RESP 20–22
[2016-03-24] MEDS: ACCUCHECK XX SCH (02:00)
[2016-03-24] MEDS: HEPARIN 5,000 UNIT/0.5 ML SYG SC SCH ×3 (06:29→21:09)
[2016-03-24] MEDS: INSULIN ASPART [NOVOLOG] 3 ML PEN SC SCH ×4 (07:55→20:58)
[2016-03-24] MEDS: SACCHAROMYCES BOULARDII 250 MG CAP PO SCH ×2 (09:41→20:58)
[2016-03-24] MEDS: CREON (24K-76K-120K) 1 CAP PO SCH ×3 (09:41→18:02)
[2016-03-24] MEDS: ASCORBIC ACID 500 MG TAB PO SCH (09:42)
[2016-03-24] MEDS: ASPIRIN 81 MG TAB PO SCH (09:42)
[2016-03-24] MEDS: MULTIVIT/CA CARB/B CMPLX/FA TAB PO SCH (09:42)
[2016-03-24] MEDS: AMLODIPINE 2.5 MG TAB PO SCH (09:42)
[2016-03-24] MEDS: CALCIUM ACETATE 667 MG CAP PO SCH ×3 (09:42→18:02)
[2016-03-24] MEDS: LORATADINE 10 MG TAB PO SCH (09:42)
[2016-03-24] MEDS: CALCITRIOL 0.25 MCG CAP PO SCH (09:42)
--- NOTE | 2016-03-24 09:50 | PN ---
Date/Time of Note Date/Time of Note DATE: 03/24/16 TIME: 09:47 Assessment/Plan Lines/Catheters IV Catheter Type (from Nrs): Saline Lock Jimenez in Place (from Nrs): No Assessment/Plan Chief Complaint/Hosp Course -RLE atherosclerosis with gangrene: S/P SFA-Distal Anterior tibial artery In- Situ bypass -Apply Betadine to all incisions daily -Apply collagen based dressing to LLE BKA every other day -PT/OT OOB and to chair, activity as tolerated, FWB with RLE -Continue neurovascular checks' Q3-4hrs -Cleared from vascular standpoint -Appreciate cardiology input -Appreciate nephrology input -Optimize vascular status (BP meds, sugar control, cholesterol, antiplatelets, diet, nutrition) -Discussed the plan, management and findings with pt and he understands -Thank you for allowing us to partake in the car5e of your patient, please call with any questions Problems: Subjective 24 Hr Interval Summary no new vascular events overnight, PT/OT Exam/Review of Systems Vital Signs Vitals Vital Signs Date Time Temp Pulse Resp B/P Pulse Ox O2 Delivery O2 Flow Rate FiO2 03/24/16 08:20 84 03/24/16 07:09 98.0 20 176/76 98 03/23/16 19:15 Nasal Cannula 1.0 03/21/16 17:47 21 Intake and Output 03/23/16 03/23/16 03/24/16 15:00 23:00 07:00 Intake Total 1750 ml 500 ml Output Total 3800 ml Balance -2050 ml 500 ml Exam Free Text/Dictation A&Ox3 CTAB S1S2 present soft NTND BS+ RLE: palpable femoral pulse, palpable graft at the ankle, motor/sensory intact, cap refill 1-2 seconds, dependant dopplerable DP signal biphasic, incisions all clean, dry and alec intact. LLE: palpable femoral pulse, motor/sensory intact, dressing intact and dry Results Result Diagram: 03/23/16191203/23/161912 MARTÍNEZ ROSADO MD Mar 24, 2016 09:50
[2016-03-24] MEDS ORDERED: AMLODIPINE 2.5 MG TAB PO PRN (20:30)
--- NOTE | 2016-03-24 20:33 | CONS ---
Date/Time of Note Date/Time of Note DATE: 03/24/16 TIME: 20:30 Assessment/Plan Assessment/Plan Chief Complaint/Hosp Course 1. he is 6 days post op R leg Femoral to tibial artery bypass . L leg stump debridement . He is overall doing better . Start D/C planning . 2. ESRD , hemodialysis ordered for tomorrow , He is MWF dialysis . 3. DM 4. severe postural hypotension 5. anemia of CKD . 6 HTN , on prn amlodipine Problems: Consultation Date/Type/Reason Admit Date/Time Mar 18, 2016 at 05:22 Initial Consult Date 03/18/16 Type of Consultation: renal Referring Provider: MARTÍNEZ ROSADO MD 24 HR Interval Summary Constitutional: improved, no complaints Exam/Review of Systems Vital Signs Vitals Vital Signs Date Time Temp Pulse Resp B/P Pulse Ox O2 Delivery O2 Flow Rate FiO2 03/24/16 20:12 81 03/24/16 19:54 98.0 22 127/56 92 03/24/16 19:30 Nasal Cannula 1.0 03/21/16 17:47 21 Intake and Output 03/23/16 03/23/16 03/24/16 15:00 23:00 07:00 Intake Total 1750 ml 500 ml Output Total 3800 ml Balance -2050 ml 500 ml Exam R leg fresh wound , L leg S/P BKA Constitutional: alert, oriented, well developed Psych: nl mood/affect, no complaints Respiratory: clear to auscultation, normal air movement Cardiovascular: regular rate and rhythm Results Result Diagram: 03/23/16191203/23/161912 Results 24 hrs Laboratory Tests Test 03/23/16 21:22 03/24/16 08:15 03/24/16 12:07 03/24/16 17:29 Bedside Glucose 138 76 135 119 Medications Medications Current Medications Heparin Sodium (Porcine) (Heparin (5000 Units/0.5 ml)) 5,000 unit Q8 SC Last administered on 03/24/16 13:28; Admin Dose 5,000 UNIT; Start 03/18/16 at 22:00 Acetaminophen (Tylenol Tab) 650 mg Q4H PRN PO PAIN AND OR ELEVATED TEMP; Start 03/18/16 at 14:30 Ascorbic Acid (Vitamin C) 500 mg DAILY PO Last administered on 03/24/16 09:42 ; Admin Dose 500 MG; Start 03/19/16 at 09:00 Aspirin (Aspirin) 81 mg DAILY PO Last administered on 03/24/16 09:42; Admin Dose 81 MG; Start 03/19/16 at 09:00 Atorvastatin Calcium (Lipitor) 20 mg QHS PO Last administered on 03/23/16 22: 32; Admin Dose 20 MG; Start 03/18/16 at 21:00 Bisacodyl (Dulcolax Supp) 10 mg DAILY PRN [place] BM; Start 03/18/16 at 14:30 Calcitriol (Rocaltrol) 0.25 mcg DAILY PO Last administered on 03/24/16 09:42; Admin Dose 0.25 MCG; Start 03/19/16 at 09:00 Epoetin Nito (Epogen (Esrd)) 10,000 units [place]ED[place]RI@17 SC Last administered on 03/23/16 21:25; Admin Dose 10,000 UNITS; Start 03/18/16 at 17:00 Insulin Glargine (Lantus) 20 unit QHS SC Last administered on 03/23/16 21:29; Admin Dose 20 UNIT; Start 03/18/16 at 21:00 Loratadine (Claritin) 10 mg DAILY PO Last administered on 03/24/16 09:42; Admin Dose 10 MG; Start 03/19/16 at 09:00 Multivit/Ca Carb/ B Cmplx/FA/Prenat (Sarika-Nahomi) 1 tab DAILY PO Last administered on 03/24/16 09:42; Admin Dose 1 TAB; Start 03/19/16 at 09:00 Saccharomyces Boulardii (Florastor) 500 mg BID PO Last administered on 09:41; Admin Dose 500 MG; Start 03/18/16 at 21:00 Tamsulosin HCl (Flomax) 0.4 mg HS PO Last administered on 03/23/16 22:31; Admin Dose 0.4 MG; Start 03/18/16 at 21:00 Diagnostic Test (Pha) (Accucheck) 1 ea 02 XX Last administered on 03/23/16 01: 16; Admin Dose 1 EA; Start 03/19/16 at 02:00 Miscellaneous Information 1 ea NOTE XX ; Start 1/11/17 at 15:00 Glucose (Glutose) 15 gm Q15M PRN PO DECREASED GLUCOSE; Start 03/18/16 at 15:00 Glucose (Glutose) 22.5 gm Q15M PRN PO DECREASED GLUCOSE; Start 03/18/16 at 15: 00 Dextrose (D50w Syringe) 25 ml Q15M PRN IV DECREASED GLUCOSE; Start 03/18/16 at 15:00 Dextrose (D50w Syringe) 50 ml Q15M PRN IV DECREASED GLUCOSE; Start 03/18/16 at 15:00 Glucagon (Glucagen) 1 mg Q15M PRN IM DECREASED GLUCOSE; Start 03/18/16 at 15:00 Glucose (Glutose) 15 gm Q15M PRN BUCCAL DECREASED GLUCOSE; Start 03/18/16 at 15 :00 Hydromorphone HCl (Dilaudid) 1 mg Q3H PRN IV PAIN Last administered on 06:28; Admin Dose 1 MG; Start 03/19/16 at 12:00 Ondansetron HCl (Zofran Inj) 4 mg Q6H PRN IV NAUSEA AND/OR VOMITING; Start 02/21 at 10:00 Acetaminophen/ Hydrocodone Bitart ([place] (5/325)) 1 tab Q4H PRN PO PAIN; Start 03/20/16 at 15:00 Hydralazine HCl (Apresoline) 25 mg Q4 PRN PO ELEVATED BLOOD PRESSURE Last administered on 03/23/16 17:01; Admin Dose 25 MG; Start 03/22/16 at 00:30 Amlodipine Besylate (Norvasc) 2.5 mg BID PO Last administered on 03/24/16 09: 42; Admin Dose 2.5 MG; Start 03/23/16 at 12:30 CELESTE BHATT MD Mar 24, 2016 20:33
[2016-03-24] MEDS: TAMSULOSIN (SR) 0.4 MG CAP PO SCH (20:59)
[2016-03-24] MEDS: ATORVASTATIN 20 MG TAB PO SCH (20:59)
[2016-03-24] MEDS: INSULIN GLARGINE [LANtus] 3 ML PEN SC SCH (21:10)
[2016-03-25] VITALS (23 sets, daily range): BP systolic 104–180; BP diastolic 49–82; PULSE 74–87; RESP 18–20
[2016-03-25] MEDS: ACCUCHECK XX SCH (02:00)
[2016-03-25] MEDS: HEPARIN 5,000 UNIT/0.5 ML SYG SC SCH ×2 (06:03→14:12)
[2016-03-25] MEDS: INSULIN ASPART [NOVOLOG] 3 ML PEN SC SCH ×2 (07:55→11:23)
[2016-03-25] MEDS ORDERED: ALBUMIN HUMAN 25% 100 ML IV PRN (08:00)
[2016-03-25] MEDS: CREON (24K-76K-120K) 1 CAP PO SCH ×2 (11:19→11:34)
[2016-03-25] MEDS: CALCIUM ACETATE 667 MG CAP PO SCH ×2 (11:19→11:34)
[2016-03-25] MEDS: MULTIVIT/CA CARB/B CMPLX/FA TAB PO SCH (11:20)
[2016-03-25] MEDS: LORATADINE 10 MG TAB PO SCH (11:20)
[2016-03-25] MEDS: CALCITRIOL 0.25 MCG CAP PO SCH (11:20)
[2016-03-25] MEDS: ASCORBIC ACID 500 MG TAB PO SCH (11:20)
[2016-03-25] MEDS: SACCHAROMYCES BOULARDII 250 MG CAP PO SCH (11:20)
[2016-03-25] MEDS: ASPIRIN 81 MG TAB PO SCH (11:20)
--- NOTE | 2016-03-25 13:29 | PDOCDIS ---
Discharge Instructions CONDITION Patient Condition: Good HOME CARE INSTRUCTIONS: Diet Instructions: Low Fat /Cholesterol ACTIVITY: Activity Restrictions: Slowly Increase Activity Rest between Activity Do not Drive Weight Bearing Bathing Restrictions: Shower FOLLOW UP/APPOINTMENTS Appointments CELESTE Carvajal MD Mar 25, 2016 13:28
--- NOTE | 2016-03-25 23:04 | DS ---
DATE OF ADMISSION: 03/18/2016 DATE OF DISCHARGE: 03/25/2016 HISTORY OF PRESENT ILLNESS AND HOSPITAL COURSE: This 70-year-old man was admitted last week because of peripheral artery disease of his right leg. The patient was seen in consultation by Dr. Johny de guzman. Dr. Conteh had done an arteriogram on the patient several weeks ago and found that he had significant peripheral artery disease. Dr. Conteh took the patient to surgery on 03/18/2016 and did a right superficial femoral artery to distal anterior tibial artery in situ bypass. He also did a sharp debridement of the left below the knee amputation stump wound. The patient tolerated t he procedure well. The patient does have multiple medical problems including end-stage renal diseas e, severe postural hypotension, insulin-dependent diabetes mellitus, and peripheral neuropathy. The patient was dialyzed while in the hospital. The patient was up some with physical therapy, but he is limited because of his overall weakness. The patient usually dialyzes Wednesday, Wednesday, and Wed. The patient has been a resident at [facility]. The patient will return there to day. The patient will continue with his outpatient hemodialysis treatments Wednesday, Wednesday, and . Transportation will be arranged for him. DISCHARGE MEDICATIONS: The patient will be continued on his current medications, which include: 1. Amlodipine 2.5 mg twice a day p.r.n. systolic BP greater than 170. 2. [place] 5/325 q.4h. p.r.n. severe pain. 3. Ascorbic acid 500 mg a day. 4. Aspirin 81 mg a day. 5. Calcitriol 0.25 mcg a day. 6. Loratadine 10 mg a day. 7. Sarika-Nahomi 1 tablet daily. 8. Atorvastatin 20 mg a day. 9. Florastor 500 mg twice a day. 10. Tamsulosin 0.4 mg at bedtime daily. 11. PhosLo 675 mg with each meal. 12. Creon 2 capsules 3 times a day with meals. 13. NovoLog insulin coverage for blood sugars before meals. 14. Tylenol 650 q.4h. p.r.n. mild pain. 15. Dulcolax suppository daily p.r.n. constipation. DISCHARGE CONDITION: The patient was in good condition at the time of discharge. DISCHARGE DIAGNOSES: 1. Peripheral artery disease, status post right femoral artery to posterior tibial artery in situ b ypass. 2. End-stage renal disease on maintenance hemodialysis. 3. Severe postural hypotension. 4. Insulin-dependent diabetes mellitus. 5. Anemia of chronic disease. Dictated By: CELESTE BHATT MD, ND/NTS Conf#: [id number] DID#: [id number]
== END 2016-03-25 17:00 | DRG 252 ==
LOC: REC 05:22 → ICU 20:52 → TEL 03-20 11:47
PROVIDERS: ADMIT Internal Medicine; ATTEND Student in an Organized Health Care Education/Training Program
PROC: 5A1D60Z (ICD-10-PCS; 2016-03-18)
PROC: 041 Lower Arteries, Bypass (ICD-10-PCS; principal; 2016-03-24)
PROC: 04BK0ZZ Excision of Right Femoral Artery, Open Approach (ICD-10-PCS; 2016-03-24)
PROC: 0JBP0ZZ Excision of Left Lower Leg Subcutaneous Tissue and Fascia, Open Approach (ICD-10-PCS; 2016-03-24)
PROC: 3E043GC Introduction of Other Therapeutic Substance into Central Vein, Percutaneous Approach (ICD-10-PCS; 2016-03-24)
DX: E11.52 Type 2 diabetes mellitus with diabetic peripheral angiopathy with gangrene (principal); N18.6 End stage renal disease; I12.0 Hypertensive chronic kidney disease with stage 5 chronic kidney disease or end stage renal disease; G90.3 Multi-system degeneration of the autonomic nervous system; E11.22 Type 2 diabetes mellitus with diabetic chronic kidney disease; Z99.2 Dependence on renal dialysis; Z79.4 Long term (current) use of insulin; Z89.512 Acquired absence of left leg below knee; D63.1 Anemia in chronic kidney disease
CPT/HCPCS: 36430; 71010; 80048; 80053; 80076; 82728; 82962; 83540; 84100; 85025; 86850; 86900; 86901; 86920; 87081; 87086; 90935; 93005; 97110; 97162; 97167; 97530; J0886; J1170; J1644; J1815; J2250; J2270; J2405; J2440; J3010; J3370; P9016; P9047

== ENCOUNTER 2016-04-11 10:53 | Inpatient (IN) | payer BC, MEDICARE ==
[2016-04-11] VITALS (9 sets, daily range): BP systolic 109–187; BP diastolic 54–80; PULSE 74–83; RESP 22; Ht 190.5 cm; Wt 84.4 kg
[~2016-04-11] VITALS: Ht 190.5 cm; Wt 84.4 kg
[~2016-04-11 10:53] MED LIST changes: -ASP81 PO; +ASPI81TA3 PO; +BISA10SU55 RC; +CHOL100062 PO; -EPO10ESRD SC; +FOSRENOL PO; -HEP30MU30 IJ; -MIDO5TAB19 PO; +NEPH PO; +TAMS0.4C2 PO; -UDROBDM PO
--- NOTE | 2016-04-11 13:07 | PREOPHP ---
DATE OF ADMISSION: 04/11/2016 REASON FOR ADMISSION: End-stage renal disease, uremia, hyperkalemia. HISTORY OF PRESENT ILLNESS: This 70-year-old man has a history of end-stage renal disease and is on maintenance hemodialysis Wednesday, Wednesday and Wednesday. The patient is currently residing at a [facility]. The patient was last in this hospital admitted 01/2017, when he underwent a right leg vascular bypass surgery by Dr. Conteh. The patient has p eripheral artery disease and had a significant right superficial femoral artery stenosis and require d a bypass surgery. He underwent a right femoral to popliteal bypass grafting with an in situ vein. The patient has done well after that surgery. The patient in approximately December of 2015 underw ent a left below the knee amputation by Dr. Johnie López because of a nonhealing diabetic ischemic ul cer on his left foot. The patient was supposed to be dialyzed last evening; however, [facility] did not pick him up to transport him to [place] for his hemodialysis treatment. The patient is now past due hemodialysis treatment and is developing some uremic symptoms. He was transferred to [facility] and admitted so that he could undergo his routine hemodi alysis treatment. CURRENT MEDICATIONS: Include the followin. Aspirin 81 mg a day. 2. Lantus insulin 28 units at bedtime daily. 3. PhosLo 1 tablet 3 times a day. 4. Centrum Silver 1 daily. 5. Atenolol 25 mg a day. 6. Calcitriol 0.25 mcg a day. 7. Vitamin D3 50,000 units a month. 8. Lipitor 20 mg a day. 9. NovoLog insulin 8 units before each meal. 10. Creon 1 tablet 3 times a day with meals. ALLERGIES: HE HAS NO KNOWN DRUG ALLERGIES. PAST MEDICAL HISTORY: Remarkable for hypertension, type 2 diabetes mellitus, pancreatitis with panc reatic insufficiency, end-stage renal disease on maintenance hemodialysis, diabetic nephropathy, uri nary tract infection, severe postural hypotension. PAST SURGICAL HISTORY: Vasectomy, tonsillectomy, cholecystectomy, laparoscopy, right eye cataract e xtraction, right arm AV fistula, left below the knee amputation in December 2015. FAMILY HISTORY: Father at age 86 of a stroke. Mother age 76 of congestive heart failure. SOCIAL HISTORY: The patient does not smoke or drink alcohol. He is retired. REVIEW OF SYSTEMS: CONSTITUTIONAL: No chills, no weight gain, no loss of appetite, no fever, no weakness, no weight lo ss, no fatigue. EYES, EARS, NOSE AND THROAT: He does have a persistent cough with a feeling of a postnasal drip. CARDIORESPIRATORY: Denies any chest pain or shortness of breath. does have an intermittent cough. GASTROINTESTINAL: Negative. NEUROMUSCULAR: Lower extremity tingling and numbness due to diabetic neuropathy. UROLOGIC: Benign prostatic hypertrophy. PHYSICAL EXAMINATION: GENERAL: At this time reveals a thin man in no apparent distress. VITAL SIGNS: Temperature 96.9, blood pressure 160/80, heart rate 80. HEENT: Head normocephalic. EYES: Extraocular muscles intact. NOSE AND MOUTH: Normal. NECK: Supple. No neck vein distention. On the left side of his nose on the skin there is a nonhea ling lesion. LUNGS: Clear to auscultation. HEART: Regular rhythm. No murmurs, gallops or rubs. ABDOMEN: Soft, nontender, no masses or megaly. EXTREMITIES: Left lower leg is status post below the knee amputation with a healing stump wound. R ight leg, there is a healing wound from his recent bypass surgery which was done about 3 weeks ago. IMPRESSION: This patient has end-stage renal disease and is now overdue for hemodialysis. He has o ther outstanding medical problems, including severe postural hypotension which essentially makes him bedridden. He has insulin-dependent diabetes mellitus, hyperlipidemia, and peripheral artery disea se. PLAN: 1. Admit to med/surg, resume routine medications. 2. Check labs today. 3. Hemodialysis for today and then to resume usual schedule. I will have case management investiga te the transportation problems and see if he would be better off in a closer dialysis unit to the [facility]. Dictated By: CELESTE BHATT MD, ND/YOANDY Conf#: [id number] DID#: [id number]
[2016-04-11] MEDS ORDERED: ACETAMINOPHEN 325 MG TAB PO PRN (15:00)
[2016-04-11] MEDS ORDERED: BISACODYL 10 MG SUPP PR PRN (15:00)
[2016-04-11] MEDS ORDERED: HYDROCODONE/APAP (5/325) TAB PO PRN (15:00)
[2016-04-11] MEDS ORDERED: ONDANSETRON 4 MG INJ IV PRN (15:00)
[2016-04-11] MEDS ORDERED: GLUCOSE GEL 15 GRAM TUBE BUCCAL PRN (15:30)
[2016-04-11] MEDS ORDERED: GLUCAGON 1 MG INJ IM PRN (15:30)
[2016-04-11] MEDS ORDERED: GLUCOSE GEL 15 GRAM TUBE PO PRN ×2 (15:30)
[2016-04-11] MEDS ORDERED: DEXTROSE 50% 50 ML SYRINGE IV PRN ×2 (15:30)
[2016-04-11] MEDS: CALCIUM ACETATE 667 MG CAP PO SCH (17:25)
[2016-04-11] MEDS: CREON (24K-76K-120K) 1 CAP PO SCH (17:25)
[2016-04-11] MEDS: LANTHANUM 500 MG CHEW PO SCH (17:26)
[2016-04-11] MEDS: INSULIN ASPART [NOVOLOG] 3 ML PEN SC SCH ×2 (17:26→21:00)
[2016-04-11] MEDS ORDERED: LANTHANUM CARBONATE 1,000 MG CHEW PO SCH (18:00)
[2016-04-11 18:52] LABS: BASOPHIL # 0.3 10^3/ul (0.0-0.1); BASOPHILS % 4.2 % (0.0-2.0); EOSINOPHILS # 0.4 10^3/ul (0.0-0.5); EOSINOPHILS % 5.6 % (0.0-7.0); HEMATOCRIT 32.7 % (42.0-52.0); HEMOGLOBIN 10.6 g/dl (14.0-18.0); LYMPHOCYTES # 1.5 10^3/ul (0.8-2.9); LYMPHOCYTES % 22.4 % (15.0-51.0); MEAN CORPUSCULAR HGB CONC 32.3 g/dl (32.0-37.0); MEAN CORPUSCULAR VOLUME 89.8 fl (82.0-101.0); MEAN PLATELET VOLUME 6.9 fl (7.4-10.4); MONOCYTE # 0.2 10^3/ul (0.3-0.9); MONOCYTES % 3.6 % (0.0-11.0); NEUTROPHIL # 4.2 10^3/ul (1.6-7.5); NEUTROPHILS % 64.2 % (39.0-77.0); PLATELET COUNT 234 10^3/UL (140-440); RED BLOOD COUNT 3.64 10^6/ul (4.70-6.10); RED CELL DISTRIBUTION WIDTH 16.3 % (11.5-14.5); UNCORRECTED WBC 6.5 10^3/ul (4.8-10.8); WHITE BLOOD COUNT 6.5 10^3/ul (4.8-10.8)
[2016-04-11 19:09] LABS: ALBUMIN 2.8 g/dl (3.3-4.9); POTASSIUM 3.7 mmol/L (3.5-5.1)
[2016-04-11 19:11] LABS: CONDITION 1; CREATININE 5.12 mg/dl (0.61-1.24); LH ANALYZER COMMENTS 1
[2016-04-11 19:12] LABS: ALBUMIN/GLOBULIN RATIO 0.8; TOTAL PROTEIN 6.3 g/dl (6.1-8.1)
[2016-04-11 19:13] LABS: CALCIUM 8.8 mg/dl (8.4-10.2)
[2016-04-11] MEDS: SACCHAROMYCES BOULARDII 250 MG CAP PO SCH (21:00)
[2016-04-11] MEDS ORDERED: LANTHANUM CARBONATE PO SCH (21:00)
[2016-04-11] MEDS: ATORVASTATIN 20 MG TAB PO SCH (22:27)
[2016-04-11] MEDS: TAMSULOSIN (SR) 0.4 MG CAP PO SCH (22:28)
[2016-04-11] MEDS: INSULIN GLARGINE [LANtus] 3 ML PEN SC SCH (22:34)
[2016-04-12] MEDS: ACCUCHECK XX SCH (02:00)
[2016-04-12] MEDS: CALCIUM ACETATE 667 MG CAP PO SCH ×3 (07:57→17:25)
[2016-04-12] MEDS: CREON (24K-76K-120K) 1 CAP PO SCH ×3 (07:58→17:25)
[2016-04-12] MEDS: LANTHANUM 500 MG CHEW PO SCH ×3 (07:59→17:25)
[2016-04-12 08:00] VITALS: BP 140/65; PULSE 76; RESP 18
--- NOTE | 2016-04-12 08:14 | CONS ---
Date/Time of Note Date/Time of Note DATE: 04/12/16 TIME: 08:10 Assessment/Plan Assessment/Plan Problems: (1) HTN (hypertension) Comment: controlled (2) Peripheral vascular disease Comment: needs alec out w Dr Mcclain tomorrow (3) Diabetes Comment: controlled (4) ESRD (end stage renal disease) on dialysis Comment: will plan for HD in AM Mon Consultation Date/Type/Reason Admit Date/Time Apr 11, 2016 at 14:23 Initial Consult Date Type of Consultation: neph 24 HR Interval Summary Free Text/Dictation reels rine... tolertaed HD yesterday without incident Exam/Review of Systems Vital Signs Vitals Vital Signs Date Time Temp Pulse Resp B/P Pulse Ox O2 Delivery O2 Flow Rate FiO2 04/11/16 21:22 75 20 04/11/16 14:54 97.6 185/79 93 Intake and Output 04/11/16 04/11/16 04/12/16 15:00 23:00 07:00 Intake Total 1560 ml 400 ml Output Total 5100 ml Balance -3540 ml 400 ml Exam Constitutional: alert Psych: no complaints Respiratory: clear to auscultation Cardiovascular: regular rate and rhythm Extremities: other (fxn AVg RUE... s/p L BKA) Results Result Diagram: 04/11/16 1840 04/11/16 1840 Results 24 hrs Laboratory Tests Test 04/11/16 17:24 04/11/16 18:40 04/11/16 22:26 04/12/16 07:54 Bedside Glucose 121 135 96 Alanine Aminotransferase (ALT/SGPT) 25 Albumin 2.8 L Albumin/Globulin Ratio 0.80 Alkaline Phosphatase 114 Anion Gap 17 H Aspartate Amino Transf (AST/SGOT) 25 Basophils # 0.3 H Basophils % 4.2 H Blood Morphology Comment Blood Urea Nitrogen 72 H Calcium Level 8.8 Carbon Dioxide Level 28 Chloride Level 96 L Creatinine 5.12 H Direct Bilirubin 0.00 Eosinophils # 0.4 Eosinophils % 5.6 Globulin 3.50 H Glucose Level 180 Hematocrit 32.7 L Hemoglobin 10.6 L Indirect Bilirubin 0.0 Lymphocytes # 1.5 Lymphocytes % 22.4 Mean Corpuscular Hemoglobin 29.0 Mean Corpuscular Hemoglobin Concent 32.3 Mean Corpuscular Volume 89.8 Mean Platelet Volume 6.9 L Monocytes # 0.2 L Monocytes % 3.6 Neutrophils # 4.2 Neutrophils % 64.2 Nucleated Red Blood Cells # 0.0 Nucleated Red Blood Cells % 0.0 Platelet Count 234 Potassium Level 3.7 Red Blood Count 3.64 L Red Cell Distribution Width 16.3 H Sodium Level 137 Total Bilirubin 0.0 L Total Protein 6.3 White Blood Count 6.5 Medications Medications Current Medications Acetaminophen (Tylenol Tab) 650 mg Q4H PRN PO PAIN AND OR ELEVATED TEMP; Start 04/11/16 at 15:00 Ascorbic Acid (Vitamin C) 500 mg DAILY PO ; Start 04/12/16 at 09:00 Aspirin (Aspirin) 81 mg DAILY PO ; Start 04/12/16 at 09:00 Atorvastatin Calcium (Lipitor) 20 mg QHS PO Last administered on 04/11/16 22:27 ; Admin Dose 20 MG; Start 04/11/16 at 21:00 Bisacodyl (Dulcolax Supp) 10 mg DAILY PRN [place] BM; Start 04/11/16 at 15:00 Calcitriol (Rocaltrol) 0.25 mcg DAILY PO ; Start 04/12/16 at 09:00 Insulin Glargine (Lantus) 20 unit QHS SC Last administered on 04/11/16 22:34; Admin Dose 20 UNIT; Start 04/11/16 at 21:00 Loratadine (Claritin) 10 mg DAILY PO ; Start 04/12/16 at 09:00 Multivit/Ca Carb/ B Cmplx/FA/Prenat (Sarika-Nahomi) 1 tab DAILY PO ; Start 04/12/16 at 09:00 Saccharomyces Boulardii (Florastor) 500 mg BID PO ; Start 04/11/16 at 21:00 Tamsulosin HCl (Flomax) 0.4 mg HS PO Last administered on 04/11/16 22:28; Admin Dose 0.4 MG; Start 04/11/16 at 21:00 Miscellaneous Information 1 ea NOTE XX ; Start 04/11/16 at 15:30 Glucose (Glutose) 15 gm Q15M PRN PO DECREASED GLUCOSE; Start 04/11/16 at 15:30 Glucose (Glutose) 22.5 gm Q15M PRN PO DECREASED GLUCOSE; Start 04/11/16 at 15:30 Dextrose (D50w Syringe) 25 ml Q15M PRN IV DECREASED GLUCOSE; Start 04/11/16 at 15:30 Dextrose (D50w Syringe) 50 ml Q15M PRN IV DECREASED GLUCOSE; Start 04/11/16 at 15:30 Glucagon (Glucagen) 1 mg Q15M PRN IM DECREASED GLUCOSE; Start 04/11/16 at 15:30 Glucose (Glutose) 15 gm Q15M PRN BUCCAL DECREASED GLUCOSE; Start 04/11/16 at 15: 30 Diagnostic Test (Pha) (Accucheck) 1 ea 02 XX ; Start 04/12/16 at 02:00 Ondansetron HCl (Zofran Inj) 4 mg Q6H PRN IV NAUSEA AND/OR VOMITING; Start 04/11 at 15:00 Clonidine (Catapres) 0.1 mg Q6H PRN PO SBP GREATER THAN 170; Start 04/11/16 at 15:30 ARCHIE YOON MD Apr 12, 2016 08:14
[2016-04-12] MEDS: INSULIN ASPART [NOVOLOG] 3 ML PEN SC SCH ×4 (08:15→20:59)
[2016-04-12] MEDS ORDERED: MULTIVITAMINS THERAPEUTIC TAB PO SCH (09:00)
[2016-04-12] MEDS ORDERED: CHOLECALCIFEROL 1,000 UNIT TAB PO SCH (09:00)
[2016-04-12] MEDS: SACCHAROMYCES BOULARDII 250 MG CAP PO SCH ×2 (09:06→20:41)
[2016-04-12] MEDS: MULTIVIT/CA CARB/B CMPLX/FA TAB PO SCH (09:07)
[2016-04-12] MEDS: ASCORBIC ACID 500 MG TAB PO SCH (09:07)
[2016-04-12] MEDS: CALCITRIOL 0.25 MCG CAP PO SCH (09:07)
[2016-04-12] MEDS: ASPIRIN 81 MG TAB PO SCH (09:08)
[2016-04-12] MEDS: LORATADINE 10 MG TAB PO SCH (09:08)
[2016-04-12 19:22] VITALS: BP 183/80; RESP 18
[2016-04-12] MEDS: TAMSULOSIN (SR) 0.4 MG CAP PO SCH (20:35)
[2016-04-12] MEDS: ATORVASTATIN 20 MG TAB PO SCH (20:35)
[2016-04-12] MEDS: INSULIN GLARGINE [LANtus] 3 ML PEN SC SCH (20:39)
[2016-04-13] VITALS (10 sets, daily range): BP systolic 94–183; BP diastolic 6–79; PULSE 70–79; RESP 18
[2016-04-13] MEDS: ACCUCHECK XX SCH (02:00)
[2016-04-13] MEDS: INSULIN ASPART [NOVOLOG] 3 ML PEN SC SCH ×2 (07:50→12:10)
[2016-04-13] MEDS: CREON (24K-76K-120K) 1 CAP PO SCH ×2 (07:59→11:54)
[2016-04-13] MEDS: CALCIUM ACETATE 667 MG CAP PO SCH ×2 (07:59→11:53)
[2016-04-13] MEDS: LANTHANUM 500 MG CHEW PO SCH ×2 (07:59→11:54)
--- NOTE | 2016-04-13 08:15 | CONS ---
Date/Time of Note Date/Time of Note DATE: 04/13/16 TIME: 08:10 Assessment/Plan Assessment/Plan Chief Complaint/Hosp Course 1. ESRD , he is due for hemodialysis today 2. PAD , S/P L leg BKA , R leg vascular bypass surgery 4 weeks ago . 3. severe postural hypotension due to DM and autonomic neuropathy . 4. insulin dependent DM 5. chronic anemia due CKD . Problems: Consultation Date/Type/Reason Admit Date/Time Apr 11, 2016 at 14:23 Initial Consult Date Type of Consultation: neph 24 HR Interval Summary Free Text/Dictation He has no complaints . Constitutional: no complaints Exam/Review of Systems Vital Signs Vitals Vital Signs Date Time Temp Pulse Resp B/P Pulse Ox O2 Delivery O2 Flow Rate FiO2 04/13/16 07:59 98.0 81 18 155/67 97 04/12/16 08:00 Room Air Intake and Output 04/12/16 04/12/16 04/13/16 15:00 23:00 07:00 Intake Total 720 ml 880 ml Output Total 200 ml 650 ml Balance 520 ml 230 ml Exam R leg S/P vascular bypass surgery . L leg S/P BKA . Constitutional: alert, oriented, well developed Psych: nl mood/affect, no complaints Respiratory: clear to auscultation, normal air movement Cardiovascular: regular rate and rhythm Gastrointestinal: soft Results Result Diagram: 04/11/16 1840 04/11/16 1840 Results 24 hrs Laboratory Tests Test 04/12/16 11:29 04/12/16 17:24 04/12/16 20:34 04/13/16 07:36 Bedside Glucose 122 156 174 124 Medications Medications Current Medications Acetaminophen (Tylenol Tab) 650 mg Q4H PRN PO PAIN AND OR ELEVATED TEMP; Start 04/11/16 at 15:00 Ascorbic Acid (Vitamin C) 500 mg DAILY PO Last administered on 04/12/16 09:07; Admin Dose 500 MG; Start 04/12/16 at 09:00 Aspirin (Aspirin) 81 mg DAILY PO Last administered on 04/12/16 09:08; Admin Dose 81 MG; Start 04/12/16 at 09:00 Atorvastatin Calcium (Lipitor) 20 mg QHS PO Last administered on 04/12/16 20:35 ; Admin Dose 20 MG; Start 04/11/16 at 21:00 Bisacodyl (Dulcolax Supp) 10 mg DAILY PRN IN BM; Start 04/11/16 at 15:00 Calcitriol (Rocaltrol) 0.25 mcg DAILY PO Last administered on 04/12/16 09:07; Admin Dose 0.25 MCG; Start 04/12/16 at 09:00 Insulin Glargine (Lantus) 20 unit QHS SC Last administered on 04/12/16 20:39; Admin Dose 20 UNIT; Start 04/11/16 at 21:00 Loratadine (Claritin) 10 mg DAILY PO Last administered on 04/12/16 09:08; Admin Dose 10 MG; Start 04/12/16 at 09:00 Multivit/Ca Carb/ B Cmplx/FA/Prenat (Sarika-Nahomi) 1 tab DAILY PO Last administered on 04/12/16 09:07; Admin Dose 1 TAB; Start 04/12/16 at 09:00 Saccharomyces Boulardii (Florastor) 500 mg BID PO Last administered on 20:41; Admin Dose 500 MG; Start 04/11/16 at 21:00 Tamsulosin HCl (Flomax) 0.4 mg HS PO Last administered on 04/12/16 20:35; Admin Dose 0.4 MG; Start 04/11/16 at 21:00 Miscellaneous Information 1 ea NOTE XX ; Start 04/11/16 at 15:30 Glucose (Glutose) 15 gm Q15M PRN PO DECREASED GLUCOSE; Start 04/11/16 at 15:30 Glucose (Glutose) 22.5 gm Q15M PRN PO DECREASED GLUCOSE; Start 04/11/16 at 15:30 Dextrose (D50w Syringe) 25 ml Q15M PRN IV DECREASED GLUCOSE; Start 04/11/16 at 15:30 Dextrose (D50w Syringe) 50 ml Q15M PRN IV DECREASED GLUCOSE; Start 04/11/16 at 15:30 Glucagon (Glucagen) 1 mg Q15M PRN IM DECREASED GLUCOSE; Start 04/11/16 at 15:30 Glucose (Glutose) 15 gm Q15M PRN BUCCAL DECREASED GLUCOSE; Start 04/11/16 at 15: 30 Diagnostic Test (Pha) (Accucheck) 1 ea 02 XX ; Start 2/5/17 at 02:00 Ondansetron HCl (Zofran Inj) 4 mg Q6H PRN IV NAUSEA AND/OR VOMITING; Start 04/11 at 15:00 Clonidine (Catapres) 0.1 mg Q6H PRN PO SBP GREATER THAN 170; Start 04/11/16 at 15:30 CELESTE BHATT MD Apr 13, 2016 08:15
[2016-04-13] MEDS: ASCORBIC ACID 500 MG TAB PO SCH (08:29)
[2016-04-13] MEDS: CALCITRIOL 0.25 MCG CAP PO SCH (08:29)
[2016-04-13] MEDS: MULTIVIT/CA CARB/B CMPLX/FA TAB PO SCH (08:29)
[2016-04-13] MEDS: ASPIRIN 81 MG TAB PO SCH (08:30)
[2016-04-13] MEDS: LORATADINE 10 MG TAB PO SCH (08:30)
[2016-04-13] MEDS: SACCHAROMYCES BOULARDII 250 MG CAP PO SCH (08:30)
[2016-04-13] MEDS ORDERED: ALBUMIN HUMAN 25% 100 ML IV PRN (10:00)
[2016-04-13 11:11] LABS: BASOPHILS % 0.5 % (0.0-2.0); EOSINOPHILS # 0.2 10^3/ul (0.0-0.5); EOSINOPHILS % 2.6 % (0.0-7.0); HEMATOCRIT 31.4 % (42.0-52.0); HEMOGLOBIN 10.4 g/dl (14.0-18.0); LYMPHOCYTES # 1.5 10^3/ul (0.8-2.9); LYMPHOCYTES % 20.5 % (15.0-51.0); MEAN CORPUSCULAR HEMOGLOBIN 29.7 pg (29.0-33.0); MEAN CORPUSCULAR HGB CONC 33.1 g/dl (32.0-37.0); MEAN CORPUSCULAR VOLUME 89.8 fl (82.0-101.0); MEAN PLATELET VOLUME 7.5 fl (7.4-10.4); MONOCYTE # 0.4 10^3/ul (0.3-0.9); MONOCYTES % 4.9 % (0.0-11.0); NEUTROPHIL # 5.3 10^3/ul (1.6-7.5); NEUTROPHILS % 71.5 % (39.0-77.0); PLATELET COUNT 207 10^3/UL (140-440); RED BLOOD COUNT 3.49 10^6/ul (4.70-6.10); RED CELL DISTRIBUTION WIDTH 15.8 % (11.5-14.5); UNCORRECTED WBC 7.5 10^3/ul (4.8-10.8); WHITE BLOOD COUNT 7.5 10^3/ul (4.8-10.8)
[2016-04-13 11:13] LABS: POTASSIUM 3.1 mmol/L (3.5-5.1)
[2016-04-13 11:16] LABS: CREATININE 3.28 mg/dl (0.61-1.24)
[2016-04-13 11:17] LABS: CALCIUM 8.3 mg/dl (8.4-10.2)
[2016-04-13 11:21] LABS: CONDITION 1; LH ANALYZER COMMENTS 1
--- NOTE | 2016-04-13 14:03 | PDOCDIS ---
Discharge Instructions DIAGNOSIS Discharge Diagnosis: End Stage Renal Disease CONDITION Patient Condition: Fair HOME CARE INSTRUCTIONS: Diet Instructions: RegularSpecial Diet: RENAL/DM ACTIVITY: Activity Restrictions: Slowly Increase Activity Rest between Activity Avoid heavy lifting Partial Weight Bearing Bathing Restrictions: Shower FOLLOW UP/APPOINTMENTS Appointments Dr Mariee at amputation prevention center at [facility] . CELESTE BHATT MD Apr 13, 2016 14:02
--- NOTE | 2016-04-13 14:36 | CONS ---
DATE OF ADMISSION: 04/13/2016 DATE OF CONSULTATION: 04/13/2016 VASCULAR SURGERY CONSULTATION Dear Doctors: Mr. Hyaden is a 70-year-old gentleman with a history of bilateral lower extremity atherosclerotic dise ase and gangrene known to our vascular surgery service. The patient was admitted recently to [facility] secondary to his hyperkalemia and requiring dialysis. As of recent, the michelle ent had underwent a right lower extremity revascularization with a femoral to distal anterior tibial artery in situ bypass. The patient was to be scheduled to be seen by us in the office today, unfor tunately he is in the hospital. At the moment, the patient denies shortness of breath, chest pain, nausea, vomiting, fever, or chills. The patient has been doing well from the standpoint of his surg ical wounds which have had the alec intact and are due to be removed. His ulcers of his toes hav e essentially, and gangrene, have been doing well and healing as he has developed more superficial s cabs and new skin has essentially developed. Unfortunately, the patient pointed out that he has dev eloped a new decubitus right heel ulcer secondary to not being moved at his nursing facility. During our examination, the patient was on dialysis. His right upper extremity dialysis fistula has been functioning well with bruit and thrill present. No issues with his session and during our дмитрий luation. REVIEW OF SYSTEMS: A 12-point review performed and negative except what is mentioned in the HPI for review f systems. PAST MEDICAL HISTORY: Entails hypertension, diabetes, pancreatitis, end-stage renal disease on hemo dialysis Wednesday, Wednesday, Wednesday bilateral lower extremity atherosclerosis and gangrene, diabetic neuropathy, diabetic retinopathy, diabetic nephropathy, UTI, and significant postural hypotension. PAST SURGICAL HISTORY: Vasectomy, tonsillectomy, cholecystectomy, laparoscopy, right eye cataract s urgery, right upper extremity AV fistula creation, left below-knee amputation, right lower extremity revascularization. FAMILY HISTORY: Positive for congestive heart failure, coronary artery disease. SOCIAL HISTORY: Previous history of smoking, currently denies tobacco, alcohol, or illicit drug use , is currently at a [facility]. PHYSICAL EXAMINATION: GENERAL: Alert and oriented x3, no apparent distress. HEENT: Normocephalic, atraumatic. EOMI. Mucosa moist. NECK: Supple. No carotid bruit. PULMONARY: Clear to auscultation bilaterally. No crackles. CARDIOVASCULAR: S1, S2 present. No murmurs. ABDOMEN: Soft, nontender, nondistended. Bowel sounds positive. EXTREMITIES: Right lower extremity palpable femoral pulse, palpable graft at the ankle. Motor, sen fernando intact. Capillary refill 2 to 3 seconds. [place] are all intact, clean and dry. There is chava e eschar and scabs near the distal aspect of the calf wound. Left lower extremity palpable femoral pulse. Motor, sensory intact. Stump with capillary refill 3 seconds. His wounds essentially have almost healed with good granulation tissue at the base, and we have been applying specialty collagen-based dressings. ASSESSMENT AND PLAN: Bilateral lower extremity atherosclerosis with right lower extremity gangrene: It seems that the patient has been doing well from the standpoint of the surgery as his wounds on his toes and gangrene have essentially healed and he has developed very superficial scabs. Unfortun ately, the patient has developed a right heel decubitus pressure ulcer secondary to not moving in hi s bed from the nursing facility, and we encouraged for him to be a pressure-free from his left heel standpoint. We will plan to schedule him for a heel protector boot and also to offload his heel whe n he is lying in bed. I encouraged him to continue with physical therapy and occupational therapy and try to get him stron g prior to transferring him to his home. Continue with vascular optimization (BP meds, diet, nutrition, exercise, sugar control protein intak e, and antiplatelets). Discussed findings, plan, and management with the patient and he understands. We will plan to remove every other staple for now and reevaluate his wound prior to removing all the alec. Thank you for allowing us to partake in the care of your patient. Please call with any questions. Dictated By: MARTÍNEZ JOSHUA/YOANDY Conf#: [id number] DID#: [id number]
== END 2016-04-13 16:25 | DRG 640 ==
LOC: MS2 14:23 → OBSVTOIN 04-13 08:54
PROVIDERS: ADMIT Internal Medicine; ATTEND Internal Medicine
PROC: 5A1D00Z (ICD-10-PCS; principal; 2016-04-11)
DX: E87.5 Hyperkalemia (principal); N18.6 End stage renal disease; I12.0 Hypertensive chronic kidney disease with stage 5 chronic kidney disease or end stage renal disease; E11.43 Type 2 diabetes mellitus with diabetic autonomic (poly)neuropathy; Z99.2 Dependence on renal dialysis; I95.1 Orthostatic hypotension; D63.1 Anemia in chronic kidney disease; L89.619 Pressure ulcer of right heel, unspecified stage
CPT/HCPCS: 80048; 80053; 82962; 85025; 87070; 90935; G0378; J1815; P9047

== ENCOUNTER 2016-08-14 11:37 | Inpatient (IN) | payer MEDICARE, BC ==
[2016-08-14] VITALS (16 sets, daily range): BP systolic 103–122; BP diastolic 57–64; PULSE 72–86; RESP 18; TEMP 97.8; Ht 167.6 cm; Wt 105.0 kg
[~2016-08-14] VITALS: Ht 167.6 cm; Wt 105.0 kg
[2016-08-14] MEDS ORDERED: PIPER-TAZO 3.375 GM IV (PMX) 100 ML IVPB STA (12:42)
[2016-08-14] MEDS ORDERED: VANCOMYCIN 1 GM (PMX) 250 ML IVPB STA (12:42)
--- NOTE | 2016-08-14 13:03 | ERA ---
ER Documentation Chief Complaint Date/Time DATE: 08/14/16 TIME: 12:59 Chief Complaint sent from Ortho clinic for eval weakness and right foot cellulitis HPI This is a 70 year old male with history of insulin dependent DM, PVD, left lower extremity BKA, ESRD on HD (Wednesday, Wednesday, Wednesday) and nonhealing right foot diabetic foot ulcer presenting to the ER for a direct admission and plan for amputation of the right forth toe through Dr. Gordon. Patient had recent revascularization in April for right lower extremity. In addition, patient has been sent for evaluation of active diarrhea. Patient has not went to dialysis today ROS All systems reviewed and are negative except as per history of present illness. Medications Home Meds Reported Medications Tamsulosin Hcl* (Tamsulosin Hcl*) 0.4 Mg Cap.er.24h, 0.4 MG PO HS, CAP 03/18/16 Bisacodyl (Dulcolax) 10 Mg Supp.rect, 10 MG RC DAILY Y for BM, SUPP.RECT 03/18/16 [Fosrenol] No Conflict Check, 1 GM PO TID 03/18/16 Multivit/Ca Carb/B Cmplx/Fa* (Sarika-Nahomi*) 1 Tab Tab, 1 TAB PO DAILY, TAB 03/18/16 Cholecalciferol* (Vitamin D3*) 1,000 Unit Tablet, 82145 UNIT PO QMONTHLY, TAB EVERY 8TH OF THE MONTH 03/18/16 Saccharomyces Boulardii* (Florastor*) 250 Mg Cap, 500 MG PO BID, CAP 03/18/16 Atorvastatin Calcium* (Atorvastatin Calcium*) 20 Mg Tablet, 20 MG PO QHS, #30 TAB 03/18/16 Ascorbic Acid* (Vitamin C*) 500 Mg Capsule.sa, 500 MG PO DAILY, CAP 02/25/16 Multivitamin* (Daily Value*) 1 Each Tablet, 1 TAB PO DAILY, TAB 02/25/16 Hydrocodone/Acetaminophen (Ridgeway 5-325 Tablet) 1 Each Tablet, 1 EACH PO Q4H WHILE AWAKE Y for SEVERE PAIN LEVEL 7-10, TAB 02/25/16 Insulin Aspart* (Novolog Insulin Pen*) 100 Unit/Ml Soln, 0 SC AC MEALS AND BEDTIME, EA 61-149 =0 UNITS 150-200 =2 UNITS 201-250 =4 UNITS 251-300 =6 UNITS 301-350 =8 UNITS 351-400 =10UNITS OVER 400 GIVE 12 UNITS AND CALL MD UNDER 60 CALL MD 02/25/16 Loratadine* (Loratadine*) 10 Mg Tablet, 10 MG PO DAILY, #30 TAB 02/25/16 Insulin Glargine* (Lantus*) 100 Unit/Ml Soln, 20 UNIT SC QHS, #1 VIAL 02/25/16 Atorvastatin Calcium* (Atorvastatin Calcium*) 20 Mg Tablet, 20 MG PO QHS, #30 TAB 02/25/16 Acetaminophen* (Acetaminophen*) 650 Mg Tablet, 650 MG PO Q4 Y for PAIN AND OR ELEVATED TEMP, #30 TAB 02/25/16 Saccharomyces Boulardii* (Florastor*) 250 Mg Cap, 500 MG PO BID, CAP 01/06/16 Pzzdha-Ltuwrphr-Vymgtta* (Creon DR* 24,000) 24,000 L-76,000-120,000 Unit Capsule.dr, 2 CAP PO WITH MEALS, CAP 01/06/16 Calcium Acetate* (Calcium Acetate*) 667 Mg Capsule, 667 MG PO WITH MEALS, #30 CAP 01/06/16 Calcitriol* (Calcitriol*) 0.25 Mcg Capsule, 0.25 MCG PO DAILY, CAP 01/06/16 Aspirin (Aspirin) 81 Mg Chew, 81 MG PO DAILY, TAB.CHEW 01/06/16 Allergies Allergies: Coded Allergies: No Known Allergies (Verified Allergy, Mild, 03/25/16) PMhx/Soc History of Surgery: Yes (Cataract, Left BKA) Anesthesia Reaction: No Hx Neurological Disorder: No Hx Respiratory Disorders: No Hx Cardiac Disorders: Yes (HTN) Hx Psychiatric Problems: No Hx Miscellaneous Medical Probl: No Hx Alcohol Use: No Hx Substance Use: No Hx Tobacco Use: No Physical Exam Vitals Vital Signs Date Time Temp Pulse Resp B/P Pulse Ox O2 Delivery O2 Flow Rate FiO2 08/14/16 11:40 97.4 91 20 126/66 98 Physical Exam Const: WD/WN, NAD Head: Atraumatic Eyes: Normal Conjunctiva ENT: Normal External Ears, Nose and Mouth. Neck: Full range of motion..~ No meningismus. Resp: Clear to auscultation bilaterally Cardio: Regular rate and rhythm, no murmurs Abd: Soft, non tender, non distended. Normal bowel sounds Skin: No petechiae or rashes Back: No midline or flank tenderness Ext: Left lower leg BKA right lower leg extremity has dressing intact Neur: Awake and alert Psych: Normal Mood and Affect Result Diagram: 08/14/16 1320 08/14/16 1320 Results 24 hrs Laboratory Tests Test 08/14/16 13:20 White Blood Count 13.210^3/ul Red Blood Count 3.6910^6/ul Hemoglobin 11.2g/dl Hematocrit 34.6% Mean Corpuscular Volume 93.8fl Mean Corpuscular Hemoglobin 30.4pg Mean Corpuscular Hemoglobin Concent 32.4g/dl Red Cell Distribution Width 15.3% Platelet Count 88000^3/UL Mean Platelet Volume 11.2fl Neutrophils % 85.1% Lymphocytes % 7.0% Monocytes % 7.1% Eosinophils % 0.2% Basophils % 0.2% Nucleated Red Blood Cells % 0.0/100WBC Neutrophils # 11.210^3/ul Lymphocytes # 0.910^3/ul Monocytes # 0.910^3/ul Eosinophils # 0.010^3/ul Basophils # 0.010^3/ul Nucleated Red Blood Cells # 0.010^3/ul Erythrocyte Sedimentation Rate 20mm/Hr Prothrombin Time 15.6Sec Prothrombin Time Ratio 1.2 INR International Normalized Ratio 1.23 Activated Partial Thromboplast Time 29.7Sec Sodium Level 134mmol/L Potassium Level 5.2mmol/L Chloride Level 97mmol/L Carbon Dioxide Level 24mmol/L Anion Gap 18 Blood Urea Nitrogen 64mg/dl Creatinine 5.70mg/dl Glucose Level 107mg/dl Lactic Acid Level 1.4mmol/L Calcium Level 8.5mg/dl Total Bilirubin 0.1mg/dl Direct Bilirubin 0.00mg/dl Indirect Bilirubin 0.1mg/dl Aspartate Amino Transf (AST/SGOT) 27IU/L Alanine Aminotransferase (ALT/SGPT) 33IU/L Alkaline Phosphatase 168IU/L Troponin I 2.690ng/ml C-Reactive Protein Pending Total Protein 6.6g/dl Albumin 3.6g/dl Globulin 3.00g/dl Albumin/Globulin Ratio 1.20 Current Medications Medications (Trade) Dose Ordered Sig/Wale Route PRN Reason Start Time Stop Time Status Last Admin Dose Admin Vancomycin HCl 250 ml @ 125 mls/hr ONCE STAT IVPB 08/14/16 12:42 08/14/16 14:41 DC 08/14/16 14:58 Piperacillin Sod/ Tazobactam Sod (Zosyn 3.375gm/ 100 ml (Pmx)) 100 ml @ 200 mls/hr ONCE STAT IVPB 08/14/16 12:42 08/14/16 13:11 DC 08/14/16 14:10 Ondansetron HCl (Zofran Inj) 4 mg BRIDGE ORDER PRN IV NAUSEA AND/OR VOMITING 08/14/16 13:30 08/15/16 13:29 Acetaminophen (Tylenol Tab) 650 mg ER BRIDGE PRN PO MILD PAIN/FEVER 08/14/16 13:30 08/14/16 14:27 DC IV Flush (NS 3 ml) 3 ml PER PROTOCOL IV 08/14/16 14:30 Acetaminophen (Tylenol Tab) 650 mg Q6H PRN PO PAIN LEVEL 1-3 OR FEVER 08/14/16 14:30 Acetaminophen/ Hydrocodone Bitart (Ridgeway (5/325)) 1 tab Q6H PRN PO MODERATE PAIN LEVEL 4-6 08/14/16 14:30 Zolpidem Tartrate (Ambien) 5 mg QHS PRN PO SLEEP 08/14/16 14:30 Acetaminophen (Tylenol Tab) 650 mg Q4 PRN PO PAIN AND OR ELEVATED TEMP 08/14/16 14:30 UNV Ascorbic Acid (Vitamin C) 500 mg DAILY PO 08/15/16 09:00 UNV Aspirin (Aspirin) 81 mg DAILY PO 08/15/16 09:00 UNV Atorvastatin Calcium (Lipitor) 20 mg QHS PO 08/14/16 21:00 UNV Atorvastatin Calcium (Lipitor) 20 mg QHS PO 08/14/16 21:00 UNV Bisacodyl (Dulcolax Supp) 10 mg DAILY PRN [place] BM 08/14/16 14:30 UNV Calcitriol (Rocaltrol) 0.25 mcg DAILY PO 08/15/16 09:00 UNV Calcium Acetate (Phoslo) 667 mg WITH MEALS PO 08/14/16 18:00 UNV Insulin Glargine (Lantus) 20 unit QHS SC 08/14/16 21:00 UNV Amylase/Lipase/ Protease (Creon ([id number])) 2 cap WITH MEALS PO 08/14/16 18:00 UNV Loratadine (Claritin) 10 mg DAILY PO 08/15/16 09:00 UNV Multivit/Ca Carb/ B Cmplx/FA/Prenat (Sarika-Nahomi) 1 tab DAILY PO 08/15/16 09:00 UNV Multivitamins Therapeutic (Theragran) 1 tab DAILY PO 08/15/16 09:00 UNV Saccharomyces Boulardii (Florastor) 500 mg BID PO 08/14/16 21:00 UNV Saccharomyces Boulardii (Florastor) 500 mg BID PO 08/14/16 21:00 UNV Tamsulosin HCl (Flomax) 0.4 mg HS PO 08/14/16 21:00 UNV Aspirin (Aspirin) 162 mg ONCE ONCE PO 08/14/16 15:00 08/14/16 15:01 DC Procedures/MDM This is a 70 year old male with stable vital signs presents to the ER for direct admission for amputation of the right forth toe through Dr. Nunez. Patient was found to have NSTEMI with troponin 2.69 Patient will be transferred to tele bed for further evaluation and management. My supervising physician was consulted who made admission orders and contacted hospitalist. Patient presents with NSTEMI of troponin 2.69. IV access established. Lab work was drawn. CBC showed mild leukocytosis likely due to a leukemoid reaction. Patient was given aspirin and started on vanco and zosyn. 1. NSTEMI - patient was given aspirin, will be transferred to tele bed 2. Right foot forth toe gangrene with cellulitis - start on vanco and zosyn, and plan for amputation of forth toe 3. ESRD on HD Wednesday, Wednesday, Wednesday who is due for hemodialysis today 4. insulin dependent DM 5. chronic anemia due CKD 6. Diarrhea - c.diff stool study EKG: read and signed off by myself and Rate/Rhythm: [85 bpm sinus rhythm with PVC] QRS, ST, T-waves: [No changes consistent w/ acute ischemia] Impression: [No evidence of STEMI] CXR: 1. Extremely limited study due to over exposure. Consider repeat study 2. Stable mild cardiomegaly. 3. No definite infiltrates Departure Diagnosis: Primary Impression: Cellulitis Additional Impression: Diabetes Condition: Fair FAY SIEGEL PA-C Aug 14, 2016 13:03
[2016-08-14] MEDS ORDERED: ACETAMINOPHEN 325 MG TAB PO PRN ×3 (13:30→14:30)
[2016-08-14] MEDS ORDERED: ONDANSETRON 4 MG INJ IV PRN (13:30)
[2016-08-14 13:44] LABS: ADD SCAN DIFF NO
[2016-08-14 13:47] LABS: BASOPHILS % 0.2 % (0.0-2.0); EOSINOPHILS % 0.2 % (0.0-7.0); HEMATOCRIT 34.6 % (42.0-52.0); HEMOGLOBIN 11.2 g/dl (14.0-18.0); LYMPHOCYTES # 0.9 10^3/ul (0.8-2.9); MEAN CORPUSCULAR HEMOGLOBIN 30.4 pg (29.0-33.0); MEAN CORPUSCULAR HGB CONC 32.4 g/dl (32.0-37.0); MEAN CORPUSCULAR VOLUME 93.8 fl (82.0-101.0); MEAN PLATELET VOLUME 11.2 fl (7.4-10.4); MONOCYTE # 0.9 10^3/ul (0.3-0.9); MONOCYTES % 7.1 % (0.0-11.0); NEUTROPHIL # 11.2 10^3/ul (1.6-7.5); NEUTROPHILS % 85.1 % (39.0-77.0); PLATELET COUNT 143 10^3/UL (140-415); RED BLOOD COUNT 3.69 10^6/ul (4.70-6.10); RED CELL DISTRIBUTION WIDTH 15.3 % (11.5-14.5); WHITE BLOOD COUNT 13.2 10^3/ul (4.8-10.8)
--- NOTE | 2016-08-14 14:00 | RADRPT ---
PROCEDURE: Chest x-ray CLINICAL INDICATION: Shortness of breath TECHNIQUE: Chest single view COMPARISON: 03/18/2016 FINDINGS: Exam is extremely limited due to over exposure. Consider repeat study. Stable mild cardiomegaly se en. Pulmonary vessels normal in caliber. No infiltrates are noted in the lower lung zones. There are old left-sided rib fractures. IMPRESSION: 1. Extremely limited study due to over exposure. Consider repeat study 2. Stable mild cardiomegaly. 3. No definite infiltrates RPTAT: HH .Marquez Penn MD, MD Date Time Electronically viewed and signed by .Marquez Pnen MD, MD on 08/14/2016 14:00 .W/
[2016-08-14 14:05] LABS: INR 1.23; PROTIME 15.6 Sec (12.2-14.2); PT RATIO 1.2
[2016-08-14 14:06] LABS: PARTIAL THROMBOPLASTIN TIME 29.7 Sec (25.0-35.0)
[2016-08-14 14:07] LABS: ALBUMIN 3.6 g/dl (3.3-4.9); ALBUMIN/GLOBULIN RATIO 1.2; BILIRUBIN,INDIRECT 0.1 mg/dl (0-1.1); BILIRUBIN,TOTAL 0.1 mg/dl (0.2-1.3); CALCIUM 8.5 mg/dl (8.4-10.2); CREATININE 5.7 mg/dl (0.61-1.24); POTASSIUM 5.2 mmol/L (3.5-5.1); TOTAL PROTEIN 6.6 g/dl (6.1-8.1)
[2016-08-14] MEDS ORDERED: NACL 0.9% 3 ML SYG IV SCH (14:30)
[2016-08-14] MEDS ORDERED: BISACODYL 10 MG SUPP PR PRN (14:30)
[2016-08-14] MEDS ORDERED: ZOLPIDEM 5 MG TAB PO PRN (14:30)
[2016-08-14 14:43] LABS: TROPONIN-I 2.69 ng/ml (0.00-0.12)
--- NOTE | 2016-08-14 14:58 | QN ---
Documentation Comment My independent concise history is right lower extremity cellulitis. My pertinent physical exam findings are right lower semi-cellulitis. The plan is admission to Dr. Reed. The patient was found to have a positive troponin but no ST elevations on his EKG and therefore believe he has an NSTEMI. The patient will be given aspirin. The patient will be admitted to a telemetry bed instead of a medical surgical bed because of the positive troponin. Critical Care: Time: 35 minutes excluding all billable procedures. Treatments/Evaluations: Close monitoring and treatment of unstable vital signs, cardiorespiratory, and neurologic status, while maintaining tight balance of fluid, respiratory, and cardiac interventions. PERRY KENNEDY MD Aug 14, 2016 14:58
[2016-08-14] MEDS ORDERED: ASPIRIN 81 MG TAB PO ONE (15:00)
[2016-08-14] MEDS ORDERED: GLUCAGON 1 MG INJ IM PRN (15:30)
[2016-08-14] MEDS ORDERED: GLUCOSE GEL 15 GRAM TUBE BUCCAL PRN (15:30)
[2016-08-14] MEDS ORDERED: DEXTROSE 50% 50 ML SYRINGE IV PRN ×2 (15:30)
[2016-08-14] MEDS ORDERED: GLUCOSE GEL 15 GRAM TUBE PO PRN ×2 (15:30)
--- NOTE | 2016-08-14 15:49 | RADRPT ---
PROCEDURE: US Lower extremity venous CLINICAL INDICATION: right lower leg pain TECHNIQUE: Multiple sonographic images of the right lower extremity deep venous system was obtain ed utilizing grayscale, color-flow, compressive sonography and doppler imaging with augmentation. T he images were reviewed on a PACS workstation. COMPARISON: None. FINDINGS: There is normal compressibility and flow within the right common femoral, superficial femoral , po sterior tibial and popliteal veins. IMPRESSION: No sonographic evidence for deep venous thrombosis in the right lower extremity. RPTAT: EE Physician Javed Date Time Electronically viewed and signed by Physician Javed on 08/14/2016 15:48 RA/
[2016-08-14] MEDS ORDERED: VANCOMYCIN IV PER PHARMACY XX SCH (17:00)
[2016-08-14] MEDS ORDERED: PIPER-TAZO 2.25 GM (PMX) 50 ML IVPB ONE (17:00)
--- NOTE | 2016-08-14 17:25 | PREOPHP ---
DATE OF ADMISSION: 08/18/2016 REASON FOR ADMISSION: Gangrene of the fourth digit of the right foot and a cellulitis of the right lower leg. HISTORY OF PRESENT ILLNESS: This 70-year-old man was seen today at [facility]. The patient was found to have gangrene of the fourth digit of the right foot. He also had an area of redness over the right lower espinal. He was diagnosed with arterial insufficiency of the right foot and cellulitis of the right lower leg. It was recommended that he be admitted to the hospital for antibiotic treatment. The patient was also seen by the supervisor mold construction and according to the patient is going to have an amputation of the right fourth digit because of gangrene. This patient is well known to me. He has a history of longstanding type 2 diabetes mellitus with multiple sequelae of that disease. He has had peripheral artery disease. He had a below the knee amputation of his left leg in 12/2015 because of gangrene of the left foot. He has had a right leg vascular bypass by Dr. Conteh in March of this year. The patient is awake and alert. He says that he has intermittent pain of the right foot, but is not having pain at this time. The patient is essentially bed and wheelchair bound. He uses a motorized scooter to ambulate. He denies any chest pain or shortness of breath. He has an elevated troponin . CURRENT MEDICATIONS: Include the followin. Aspirin 81 mg a day. 2. Lantus insulin 20 units at bedtime daily. 3. PhosLo 1 tablet 3 times a day with meals. 4. Centrum Silver 1 daily. 5. Calcitriol 0.25 mcg a day. 6. Vitamin D3 at 50,000 units once a month. 7. Lipitor 20 mg a day. 8. NovoLog insulin before each meal. 9. Creon 1 tablet 3 times a day with meals. ALLERGIES: HE HAS NO KNOWN DRUG ALLERGIES. PAST MEDICAL HISTORY: 1. Remarkable for type 2 diabetes mellitus, insulin-dependent. 2. Hypertension. 3. History of pancreatitis with pancreatic insufficiency. 4. End-stage renal disease on maintenance hemodialysis. 5. Diabetic nephropathy. 6. History of urinary tract infections. 7. Severe postural hypotension due to autonomic neuropathy. PAST SURGICAL HISTORY: Vasectomy, tonsillectomy, colonoscopy, right eye cataract extraction, right arm AV fistula, left below the knee amputation in December of 2015. Right leg arterial bypass surgery in March of this year. FAMILY HISTORY: Father is at age 86 of a stroke. Mother at age 76 of congestive heart failure. SOCIAL HISTORY: The patient does not smoke nor drink alcohol. He is retired from the [employer]. REVIEW OF SYSTEMS: CONSTITUTIONAL: No chills, no weight gain, no loss of appetite, no fever, no weakness, no weight loss. OPHTHALMOLOGIC: He does have fatigue and difficulty ambulating. ENT: He has a persistent cough with some postnasal drip. CARDIORESPIRATORY: Denies chest pain or shortness of breath. He does have an intermittent cough. GASTROINTESTINAL: He has intermittent diarrhea with a history of pancreatic insufficiency neuromuscular lower extremity tingling and numbness due to diabetic neuropathy. UROLOGIC: Benign prostatic hypertrophy. PHYSICAL EXAMINATION: GENERAL: At this time reveals a well-developed man in no apparent distress. VITAL SIGNS: Temperature 97.8, pulse is 79, respirations 18, blood pressure 121 /61, O2 saturation 98% on room air. HEENT: Head normocephalic. Eyes: Extraocular muscles intact. NOSE AND MOUTH: Normal. NECK: Supple. No neck vein distention. LUNGS: Clear to auscultation. HEART: Regular rhythm. No murmurs, gallops or rubs. ABDOMEN: Soft, nontender, no masses or megaly. EXTREMITIES: Left leg status post below the knee amputation with a well-healed stump. Right leg: He does have +1 pretibial edema. There is erythema over the right espinal. The right foot, fourth digit is gangrenous. IMPRESSION: 1. Gangrene of the right 4th digit with cellulitis of the right lower leg. 2. End-stage renal disease on maintenance hemodialysis Wednesday, Wednesday and Wednesday. Due for dialysis today being Wednesday. 3. Peripheral artery disease. 4. Severe postural hypotension due to autonomic neuropathy. 5. Diabetic peripheral neuropathy. 6. Anemia of chronic kidney disease. 7. Type 2 diabetes mellitus, insulin-dependent 8. elevated troponin PLAN: 1. Admit to med/surg. 2. Hemodialysis ordered for today. 3. Resume routine medications. 4. Broad spectrum antibiotics. 5. Vascular surgery consultation and infectious disease consultation.will have cardiology consultation and echocardiogram . 6. will have cardiology consultation and echocardiogram . Dictated By: CELESTE BHATT MD, ND/YOANDY Conf#: [id number] DID#: [id number] STAR
[2016-08-14 17:33] LABS: C-REACTIVE PROTEIN 7.8 mg/dl (0.0-0.9)
--- NOTE | 2016-08-14 18:15 | RADRPT ---
PROCEDURE: Bilateral lower extremity arterial ultrasound CLINICAL INDICATION: Lower extremity pain and claudication TECHNIQUE: Vega-scale and color images with doppler of the lower extremities were obtained COMPARISON: None available FINDINGS: A patent right femoral - anterior tibial artery bypass graft is identified. Monophasic wave forms ar e identified in the bypass graft at the level of the distal thigh and below. Monophasic wave forms are identified in the right posterior tibial artery and dorsalis pedis artery. Biphasic wave forms a re seen in the remainder of the visualized [place] arteries. Left hnaeb-[id number] amputation is seen. Rt COLOR SEPARATION PHOTOGRAPHER 74 cm/s Rt Profunda 48 cm/s Rt Prox SFA 146 cm/s Rt Mid SFA 48 cm/s Rt Dist SFA 65 cm/s Rt Mat 65 cm/s Rt Post Tibial 19 cm/s Rt Dorsalis Pedis 65 cm/s Right bypass graft: Proximal anastomosis 189 cm/s Proximal thigh 133 cm/s Mid thigh 90 cm/s Distal thigh 101 cm/s Proximal calf 104 cm/s Mid calf 81 cm/s Distal calf 60 cm/s Distal anastomosis 86 cm/s Rt JAX not performed Lt COLOR SEPARATION PHOTOGRAPHER 72 cm/s Lt Profunda 58 cm/s Lt Prox SFA 44 cm/s Lt Mid SFA 51 cm/s Lt Dist SFA 41 cm/s Lt Mat 33 cm/s Lt JAX not performed IMPRESSION: Patent right femoral - anterior tibial artery bypass graft. Monophasic waveforms are identified in the bypass graft, at the level of the distal thigh and below, possibly indicating inflow disease int o the bypass graft at the level of the distal thigh. Elevated velocity at the proximal anastomosis of the bypass graft, possibly indicating a 30 - 49% st enosis. Monophasic waveforms in the right posterior tibial and dorsalis pedis arteries suggesting inflow dis ease into those vessels. Left vdrjl-[id number] amputation. If further characterization of the arterial vasculature is needed CTA should be considered. RPTAT: AA .George Wild MD, Date Time Electronically viewed and signed by .George Wild MD, on 08/14/2016 18:15 .P/
[2016-08-14] MEDS ORDERED: SACCHAROMYCES BOULARDII 250 MG CAP PO SCH (21:00)
[2016-08-14] MEDS ORDERED: ATORVASTATIN 20 MG TAB PO SCH (21:00)
[2016-08-14] MEDS: CALCIUM ACETATE 667 MG CAP PO SCH (21:39)
[2016-08-14] MEDS: PIPER-TAZO 2.25 GM (PMX) 50 ML IVPB SCH (21:40)
[2016-08-14] MEDS: TAMSULOSIN (SR) 0.4 MG CAP PO SCH (21:40)
[2016-08-14] MEDS: CREON (24K-76K-120K) 1 CAP PO SCH (21:40)
[2016-08-14] MEDS: SACCHAROMYCES BOULARDII 250 MG CAP PO SCH (21:41)
[2016-08-14] MEDS: ATORVASTATIN 20 MG TAB PO SCH (21:41)
[2016-08-14] MEDS: INSULIN GLARGINE [LANtus] 3 ML PEN SC SCH (22:06)
[2016-08-15] VITALS (13 sets, daily range): BP systolic 103–123; BP diastolic 53–67; PULSE 71–79; RESP 16–18
--- NOTE | 2016-08-15 07:34 | CONS ---
Date/Time of Note Date/Time of Note DATE: 08/15/16 TIME: : Assessment/Plan Assessment/Plan Additional Assessment/Plan Patient is a 65 yo male with multiple medical problems including DM, ESRD, Left BKA admitted from [facility] clinic for right leg cellulitis and gangrene of 4th digit. Patient was found to have NSTEMI at ED with elevated troponin of 2.69. Recommendations: Patient would need to continue with antibiotics for right leg cellulitis he is currently on Vancomycin and gotten Zosyn. Daily dressing changes of right foot with betadine recommended. Nursing orders were placed. Patient with monophasic flow through his previous bypass graft site per JAX studies. He has been seen by Dr. Conteh Vascular surgeon and appreciate his recommendations. Plan for right foot amputation early next week, pending medical clearance/ Cardiac clearance. Patient would need to have Medical clearance note in the chart prior to surgery (possibly 08/18) per primary care physician. Per ED note Dr. Gaston has accepted this patient. Appreciate medical team help in managing patient's care. Given his recent NSTEMI will consult with medical team if he will be cleared for possible surgery. As mentioned above no urgent need for surgical intervention. Unsure about anti-coagulation plan for patient. He need need to has stopped heparin night prior to surgery. All other anti-coagulants are recommended to be stopped 3 days prior to surgery. Consultation Date/Type/Reason Admit Date/Time Aug 14, 2016 at 14:49 Date of Consultation: Aug 14, 2016 Type of Consultation: Podiatry Reason for Consultation Right leg cellulitis/NSTEMI Past Surgical History Past Surgical Hx: other Social History Smoking Status: Never smoker Exam/Review of Systems Vital Signs Vitals Vital Signs Date Time Temp Pulse Resp B/P Pulse Ox O2 Delivery O2 Flow Rate FiO2 08/15/16 04:20 98.0 79 16 122/63 94 08/14/16 16:26 Room Air Intake and Output 08/14/16 08/14/16 08/15/16 15:00 23:00 07:00 Intake Total 450 ml 200 ml Output Total 3400 ml 200 ml Balance -2950 ml 0 ml Exam S/P left BKA Patient is resting comfortably at bedside today in no acute distress Vasc: 1/4 DP and PT pulses on the right side Neuro: Protective sensation diminished Derm: Right foot 4th digit dry stable gangrene with no drainage noted. Right heel mixed fibrotic wound base ulceration with drainage noted. Ascending cellulitis of right leg with minimal improvement. musk/skeletal: S/P left BKA Results Result Diagram: 08/14/16 1320 08/14/16 1320 Results 24 hrs Laboratory Tests Test 08/14/16 13:20 08/14/16 19:50 08/14/16 21:31 08/14/16 22:00 White Blood Count 13.2 #H Red Blood Count 3.69 L Hemoglobin 11.2 L Hematocrit 34.6 L Mean Corpuscular Volume 93.8 Mean Corpuscular Hemoglobin 30.4 Mean Corpuscular Hemoglobin Concent 32.4 Red Cell Distribution Width 15.3 H Platelet Count 143 Mean Platelet Volume 11.2 #H Neutrophils % 85.1 H Lymphocytes % 7.0 L Monocytes % 7.1 Eosinophils % 0.2 Basophils % 0.2 Nucleated Red Blood Cells % 0.0 Neutrophils # 11.2 H Lymphocytes # 0.9 Monocytes # 0.9 Eosinophils # 0.0 Basophils # 0.0 Nucleated Red Blood Cells # 0.0 Erythrocyte Sedimentation Rate 20 Prothrombin Time 15.6 #H Prothrombin Time Ratio 1.2 INR International Normalized Ratio 1.23 Activated Partial Thromboplast Time 29.7 Sodium Level 134 L Potassium Level 5.2 H Chloride Level 97 Carbon Dioxide Level 24 Anion Gap 18 H Blood Urea Nitrogen 64 H Creatinine 5.70 H Glucose Level 107 Lactic Acid Level 1.4 1.2 1.6 Calcium Level 8.5 Total Bilirubin 0.1 L Direct Bilirubin 0.00 Indirect Bilirubin 0.1 Aspartate Amino Transf (AST/SGOT) 27 Alanine Aminotransferase (ALT/SGPT) 33 Alkaline Phosphatase 168 H Troponin I 2.690 *H C-Reactive Protein 7.8 H Total Protein 6.6 Albumin 3.6 Globulin 3.00 Albumin/Globulin Ratio 1.20 Bedside Glucose 127 Medications Medications Current Medications Acetaminophen/ Hydrocodone Bitart ([place] (5/325)) 1 tab Q6H PRN PO MODERATE PAIN LEVEL 4-6; Start 08/14/16 at 14:30 Zolpidem Tartrate (Ambien) 5 mg QHS PRN PO SLEEP; Start 08/14/16 at 14:30 Acetaminophen (Tylenol Tab) 650 mg Q4 PRN PO PAIN AND OR ELEVATED TEMP; Start 08/14/16 at 14:30 Ascorbic Acid (Vitamin C) 500 mg DAILY PO ; Start 08/15/16 at 09:00 Aspirin (Aspirin) 81 mg DAILY PO ; Start 08/15/16 at 09:00 Atorvastatin Calcium (Lipitor) 20 mg QHS PO Last administered on 08/14/16 21:41 ; Admin Dose 20 MG; Start 08/14/16 at 21:00 Bisacodyl (Dulcolax Supp) 10 mg DAILY PRN SD BM; Start 08/14/16 at 14:30 Calcitriol (Rocaltrol) 0.25 mcg DAILY PO ; Start 08/15/16 at 09:00 Insulin Glargine (Lantus) 20 unit QHS SC Last administered on 08/14/16 22:06; Admin Dose 20 UNIT; Start 08/14/16 at 21:00 Loratadine (Claritin) 10 mg DAILY PO ; Start 08/15/16 at 09:00 Multivit/Ca Carb/ B Cmplx/FA/Prenat (Sarika-Nahomi) 1 tab DAILY PO ; Start 08/15/16 at 09:00 Saccharomyces Boulardii (Florastor) 500 mg BID PO Last administered on 21:41; Admin Dose 500 MG; Start 08/14/16 at 21:00 Tamsulosin HCl (Flomax) 0.4 mg HS PO Last administered on 08/14/16 21:40; Admin Dose 0.4 MG; Start 08/14/16 at 21:00 Miscellaneous Information 1 ea NOTE XX ; Start 08/14/16 at 15:30 Glucose (Glutose) 15 gm Q15M PRN PO DECREASED GLUCOSE; Start 08/14/16 at 15:30 Glucose (Glutose) 22.5 gm Q15M PRN PO DECREASED GLUCOSE; Start 08/14/16 at 15:30 Dextrose (D50w Syringe) 25 ml Q15M PRN IV DECREASED GLUCOSE; Start 08/14/16 at 15:30 Dextrose (D50w Syringe) 50 ml Q15M PRN IV DECREASED GLUCOSE; Start 08/14/16 at 15:30 Glucagon (Glucagen) 1 mg Q15M PRN IM DECREASED GLUCOSE; Start 08/14/16 at 15:30 Glucose 15 gm 15 gm Q15M PRN BUCCAL DECREASED GLUCOSE; Start 6/9/17 at 15:30 Piperacillin Sod/ Tazobactam Sod (Zosyn 2.25gm/ 50ml (Pmx)) 50 ml @ 100 mls/hr Q12 IVPB Last administered on 08/14/16t 21:40; Admin Dose 100 MLS/HR; Start 08/14 at 21:00 Copies To: CC: CELESTE BHATT MD, SYAMAK DPM Aug 15, 2016 07:33
--- NOTE | 2016-08-15 08:27 | CONS ---
Date/Time of Note Date/Time of Note DATE: 08/15/16 TIME: 08:24 Assessment/Plan Assessment/Plan Problems: (1) ESRD (end stage renal disease) on dialysis Comment: on HD q MWF.. s/p HD yesterday (2) Peripheral vascular disease Comment: s/p L BKA now w gangrene/cellulitis Rt toe.. (3) HTN (hypertension) Comment: controlled on meds (4) Cellulitis Status: Acute Comment: on Vanco/Zosyn... ID eval pd (5) Elevated troponin Comment: asx... cards to see today Consultation Date/Type/Reason Admit Date/Time Aug 14, 2016 at 14:49 Initial Consult Date 08/14/16 Type of Consultation: neph 24 HR Interval Summary Free Text/Dictation pt tired from HD last meghna... no other complaints Exam/Review of Systems Vital Signs Vitals Vital Signs Date Time Temp Pulse Resp B/P Pulse Ox O2 Delivery O2 Flow Rate FiO2 08/15/16 07:14 98.3 82 18 107/53 96 08/14/16 16:26 Room Air Intake and Output 08/14/16 08/14/16 08/15/16 14:59 22:59 06:59 Intake Total 450 ml 200 ml Output Total 3400 ml 200 ml Balance -2950 ml 0 ml Exam Constitutional: alert, oriented Head: normocephalic Eyes: nl conjunctiva Neck: supple Respiratory: clear to auscultation Cardiovascular: regular rate and rhythm Gastrointestinal: soft Skin: other (s/p L BKA... Rt foot wrapped) Results Result Diagram: 08/14/16 1320 08/14/16 1320 Results 24 hrs Laboratory Tests Test 08/14/16 13:20 08/14/16 19:50 08/14/16 21:31 08/14/16 22:00 White Blood Count 13.2 #H Red Blood Count 3.69 L Hemoglobin 11.2 L Hematocrit 34.6 L Mean Corpuscular Volume 93.8 Mean Corpuscular Hemoglobin 30.4 Mean Corpuscular Hemoglobin Concent 32.4 Red Cell Distribution Width 15.3 H Platelet Count 143 Mean Platelet Volume 11.2 #H Neutrophils % 85.1 H Lymphocytes % 7.0 L Monocytes % 7.1 Eosinophils % 0.2 Basophils % 0.2 Nucleated Red Blood Cells % 0.0 Neutrophils # 11.2 H Lymphocytes # 0.9 Monocytes # 0.9 Eosinophils # 0.0 Basophils # 0.0 Nucleated Red Blood Cells # 0.0 Erythrocyte Sedimentation Rate 20 Prothrombin Time 15.6 #H Prothrombin Time Ratio 1.2 INR International Normalized Ratio 1.23 Activated Partial Thromboplast Time 29.7 Sodium Level 134 L Potassium Level 5.2 H Chloride Level 97 Carbon Dioxide Level 24 Anion Gap 18 H Blood Urea Nitrogen 64 H Creatinine 5.70 H Glucose Level 107 Lactic Acid Level 1.4 1.2 1.6 Calcium Level 8.5 Total Bilirubin 0.1 L Direct Bilirubin 0.00 Indirect Bilirubin 0.1 Aspartate Amino Transf (AST/SGOT) 27 Alanine Aminotransferase (ALT/SGPT) 33 Alkaline Phosphatase 168 H Troponin I 2.690 *H C-Reactive Protein 7.8 H Total Protein 6.6 Albumin 3.6 Globulin 3.00 Albumin/Globulin Ratio 1.20 Bedside Glucose 127 Medications Medications Current Medications Acetaminophen/ Hydrocodone Bitart ([place] (5/325)) 1 tab Q6H PRN PO MODERATE PAIN LEVEL 4-6; Start 08/14/16 at 14:30 Zolpidem Tartrate (Ambien) 5 mg QHS PRN PO SLEEP; Start 08/14/16 at 14:30 Acetaminophen (Tylenol Tab) 650 mg Q4 PRN PO PAIN AND OR ELEVATED TEMP; Start 08/14/16 at 14:30 Ascorbic Acid (Vitamin C) 500 mg DAILY PO ; Start 08/15/16 at 09:00 Aspirin (Aspirin) 81 mg DAILY PO ; Start 08/15/16 at 09:00 Atorvastatin Calcium (Lipitor) 20 mg QHS PO Last administered on 08/14/16 21:41 ; Admin Dose 20 MG; Start 08/14/16 at 21:00 Bisacodyl (Dulcolax Supp) 10 mg DAILY PRN NE BM; Start 08/14/16 at 14:30 Calcitriol (Rocaltrol) 0.25 mcg DAILY PO ; Start 08/15/16 at 09:00 Insulin Glargine (Lantus) 20 unit QHS SC Last administered on 08/14/16 22:06; Admin Dose 20 UNIT; Start 08/14/16 at 21:00 Loratadine (Claritin) 10 mg DAILY PO ; Start 08/15/16 at 09:00 Multivit/Ca Carb/ B Cmplx/FA/Prenat (Sarika-Nahomi) 1 tab DAILY PO ; Start 08/15/16 at 09:00 Saccharomyces Boulardii (Florastor) 500 mg BID PO Last administered on 21:41; Admin Dose 500 MG; Start 08/14/16 at 21:00 Tamsulosin HCl (Flomax) 0.4 mg HS PO Last administered on 08/14/16 21:40; Admin Dose 0.4 MG; Start 08/14/16 at 21:00 Miscellaneous Information 1 ea NOTE XX ; Start 08/14/16 at 15:30 Glucose (Glutose) 15 gm Q15M PRN PO DECREASED GLUCOSE; Start 08/14/16 at 15:30 Glucose (Glutose) 22.5 gm Q15M PRN PO DECREASED GLUCOSE; Start 08/14/16 at 15:30 Dextrose (D50w Syringe) 25 ml Q15M PRN IV DECREASED GLUCOSE; Start 08/14/16 at 15:30 Dextrose (D50w Syringe) 50 ml Q15M PRN IV DECREASED GLUCOSE; Start 08/14/16 at 15:30 Glucagon (Glucagen) 1 mg Q15M PRN IM DECREASED GLUCOSE; Start 08/14/16 at 15:30 Glucose 15 gm 15 gm Q15M PRN BUCCAL DECREASED GLUCOSE; Start 08/14/16 at 15:30 Piperacillin Sod/ Tazobactam Sod 50 ml @ 100 mls/hr Q12 IVPB Last administered on 08/14/16 21:40; Admin Dose 100 MLS/HR; Start 08/14/16 at 21:00 Vancomycin HCl/ Sodium Chloride (Vancocin/NS) 150 ml @ 75 mls/hr 11 IVPB ; Start 08/15/16 at 11:00; Stop 08/15/16 at 23:00 ARCHIE YOON MD Aug 15, 2016 08:27
[2016-08-15] MEDS ORDERED: MULTIVITAMINS THERAPEUTIC TAB PO SCH (09:00)
[2016-08-15] MEDS: ASCORBIC ACID 500 MG TAB PO SCH (09:13)
[2016-08-15] MEDS: SACCHAROMYCES BOULARDII 250 MG CAP PO SCH ×2 (09:13→21:41)
[2016-08-15] MEDS: MULTIVIT/CA CARB/B CMPLX/FA TAB PO SCH (09:14)
[2016-08-15] MEDS: CALCITRIOL 0.25 MCG CAP PO SCH (09:14)
[2016-08-15] MEDS: PIPER-TAZO 2.25 GM (PMX) 50 ML IVPB SCH ×2 (09:14→21:46)
[2016-08-15] MEDS: CREON (24K-76K-120K) 1 CAP PO SCH ×3 (09:14→17:47)
[2016-08-15] MEDS: CALCIUM ACETATE 667 MG CAP PO SCH ×3 (09:14→17:48)
[2016-08-15] MEDS: LORATADINE 10 MG TAB PO SCH (09:14)
[2016-08-15] MEDS: ASPIRIN 81 MG TAB PO SCH (09:14)
[2016-08-15] MEDS ORDERED: VANCOMYCIN 750 MG in SOD CHLORIDE 0.9% 150 ML IVPB SCH (11:00)
--- NOTE | 2016-08-15 16:21 | CONS ---
Date/Time of Note Date/Time of Note DATE: 08/15/16 TIME: 16:01 INPATIENT CONSULTATION REQUESTING PHYSICIAN: Dr. Reed REASON FOR CONSULT: Elevated troponin HISTORY OF PRESENT ILLNESS: Patient is a 70-year-old white male with 1. Chronic renal failure on dialysis. 2. Type 2 diabetes. 3. Peripheral vascular disease status post left BKA 2015, status post right fem -tib bypass 4. Anemia of chronic disease. 5. Benign prostatic hypertrophy. 6. History of pancreatitis. 7. History of mild aortic stenosis. 8. Hyperlipidemia. 9. Hypertension. Patient now admitted with right toe gangrene and I was called to see the patient because of an abnormal troponin. The patient however denies any prior cardiac history denies any chest pains, dyspnea, palpitations, syncope, near syncope or leg edema in his right leg. Prior echocardiogram from January 2016 revealed preserved left ventricular function. RISK FACTORS pertinent for diabetes, peripheral vascular disease, age, hypertension, hyperlipidemia, there is no gout or smoking or family history of early heart disease. PAST MEDICAL HISTORY: 1. Chronic renal failure on dialysis. 2. Type 2 diabetes long-standing. 3. Significant peripheral vascular disease prior left BKA 2015 with debridement status post right fem-tib bypass 2015. 4. Anemia of chronic disease. 5. History of pancreatitis. 6. Benign prostatic hypertrophy. 7. Hyperlipidemia. 8. Hypertension. 9. History of mild aortic stenosis. PAST SURGICAL HISTORY: Left BKA, right fem-tib bypass with a left stump debridement December 2015, right arm fistula placed 2013, tonsillectomy as a child. MEDICATIONS: Aspirin, multivitamin, Lipitor 20, Flomax 0.4, PhosLo, ampicillin , vancomycin. ALLERGIES: No known drug allergies. SOCIAL HISTORY: Negative for smoking, patient currently lives in a retirement facility. FAMILY HISTORY: Negative family history for premature coronary disease. REVIEW OF SYSTEMS: Patient denied any fevers, chills, weight loss, nausea, vomiting, diarrhea, constipation, cough, hemoptysis, dysuria, hematuria, nocturia, any neurologic symptoms, headache, any chest pains, dyspnea, PND, orthopnea, leg edema, or palpitations. All other review of systems were normal. Does not have any pain in his gangrenous toe. PHYSICAL EXAMINATION: Vital signs please see chart. HEENT; no JVD, no HJR, carotids 2 over 4+ without bruits. Chest: Clear to auscultation and percussion, no rales, wheezes or rhonchi. Cardiac: S4, S1, S2 with normal physiologic splitting, 1/6 systolic ejection murmur, no rub click or diastolic murmur noted. Abdominal: Bowel sounds positive, soft nontender, no abdominal bruit noted, no hepatosplenomegaly. Extremities: Left BKA, right foot bandaged. Pulses: 2/4 pulses diffusely no bruits noted. 1+/4+ left femoral, absent distal left femoral pulses with left BKA. Shunt noted in right arm. ADDITIONAL DATA: Hemoglobin 11.2, hematocrit 34.6, white count 13.2, platelets 143, sedimentation rate 20, troponin initially was 2.69 increased to 5.5, electrolytes normal potassium 5.2, BUN 64, creatinine 5.7, normal coagulation parameters and liver tests. Chest x-ray revealed cardiomegaly no heart failure. EKG on the ninth revealed sinus rhythm at 85 PVCs noted nonspecific T-wave inversions inferolaterally possibly consistent with ischemia. EKG today revealed sinus rhythm at 80 poor R-wave progression nonspecific ST flattening resolution of T-wave inversions inferolaterally. 2D echocardiogram reviewed by myself today and the office revealed normal left ventricular chamber size with mild concentric left ventricular hypertrophy aortic sclerosis and trileaflet aortic valve with mild aortic regurgitation no significant stenosis, dilated left atrium, diastolic dysfunction with elevated left atrial and right atrial pressure, pulmonary hypertension pulmonary pressures 55-60 mmHg, and there was inferior basal and inferoseptal wall hypokinesis with ejection fraction 40-45%. ASSESSMENT: 1. Chronic renal failure on dialysis. 2. Type 2 diabetes. 3. Significant peripheral vascular disease status post left BKA, status post right fem-tib bypass graft open on arterial duplex yesterday, right toe gangrene. 4. Mild aortic regurgitation. 5. Mild to moderate pulmonary hypertension on echocardiogram. 6. Anemia of chronic disease. 7. Hyperlipidemia. 8. History of orthostatic hypotension. 9. History of distant pancreatitis. 10. Benign prostatic hypertrophy. 11. Non-ST elevation MO possibly subacute with new EKG changes on admission, new echocardiographic findings with inferior wall hypokinesis, and moderately elevated troponin. At this time the patient appears to have suffered a possible silent subacute inferior wall infarction by echocardiographic findings and a relatively abnormal troponin despite renal failure. At this point would proceed with angiography for definitive diagnosis prior to any right toe amputation or anesthesia for definitive analysis of coronary anatomy. Will institute very low dose beta-santiago 12.5 mg a day in light of orthostatic hypotension and low- dose nitrates for possible anti-ischemic benefit. Risks and complications of coronary angiography, conscious sedation, left ventriculography, and aortography explained to the patient (, MO, stroke, infection, bleeding, allergic reaction, vascular damage, renal failure, not limited to preceding )t alternatives of not performing angiography not advised but stress testing or medical therapy discussed and patient consents. Procedure to be done by Rakesh Nair. Risks and complications of coronary angioplasty or stenting explained to the patient(, 1-3% risk of or emergency bypass, 20% a more risk of restenosis, risks of angiography explained above, not limited to preceding) explained to patient alternatives of medical therapy or bypass discussed all questions answered and they consent. Procedure to be done by Drs. Medley,or Rakesh. PLAN: 1. Start very low-dose beta-santiago 12.5 mg a day. 2. Start very low-dose nitrates half-inch twice daily with history of orthostatic hypotension. 3. Proceed with coronary angiography and possible intervention as above on Wednesday or Wednesday will need to postpone any surgery on toe gangrene with concomitant anesthesia until cardiac workup complete. CARINE ALONSO MD Aug 15, 2016 16:20
--- NOTE | 2016-08-15 16:51 | RADRPT ---
Vent Rate: 79 bpm RR Interval: 0 msec SC Interval: 168 msec QRS Duration: 108 msec QT Interval: 390 msec QTC Interval: 447 msec P-R-T [place]: 70 - 85 - 108 degrees Normal sinus rhythm Incomplete left bundle branch block Nonspecific T wave abnormality Abnormal ECG No previous tracing available for comparison Electronically Signed By: Navjot Maldonado [id number]
[2016-08-15 17:10] LABS: ALBUMIN 3.3 g/dl (3.3-4.9); BILIRUBIN,INDIRECT 0.1 mg/dl (0-1.1); BILIRUBIN,TOTAL 0.1 mg/dl (0.2-1.3); TOTAL PROTEIN 5.9 g/dl (6.1-8.1)
[2016-08-15] MEDS: METOPROLOL (XL) 25 MG TAB PO SCH (17:48)
[2016-08-15] MEDS: NITROGLYCERIN 2% 1 GM OINT PKT TD SCH (21:00)
[2016-08-15] MEDS: INSULIN ASPART [NOVOLOG] 3 ML PEN SC SCH (21:00)
--- NOTE | 2016-08-15 21:31 | CONS ---
Date/Time of Note Date/Time of Note DATE: 08/15/16 TIME: 21:23 Assessment/Plan Assessment/Plan Additional Assessment/Plan This is a 70y/o man with: 1. Right fourth toe gangrene with associated foot cellulitis. Agree with broad coverage at this time pending further clinical and microbiologic data and, in the coming days, amputation per podiatry. 2. CAD with NSTEMI. As per team 3. DM with complications of PVD, nephropathy. 4. 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 5. Hypertension, stable 6. ESRD on HD MWF 7. Diarrhea. Uncertain etiology. Will check norovirus, C difficile PCR and rotavirus. Suggest contact isolation until ruled out. 8. Blood culture with GPCCl in 03/09. 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 Continue IV vancomycin. Consultation Date/Type/Reason Admit Date/Time Aug 14, 2016 at 14:49 Date of Consultation: Aug 15, 2016 Reason for Consultation Cellulitis Referring Provider: CELESTE BHATT MD Hx of Present Illness The patient is a 70 y/o man with a history of DM complicated by vascular disease and ESRD now on HD x2y who presents with cellulitis of the RLE. The patient has a history of vascular compromised of the RLE and underwent a bypass earlier this year that was successful excepting the 4th toe which has been gangrenous since. About 2-3 days prior to admission he noted redness of the forefoot which began to extend to the lower leg. He presented to the ED and was found the have an NSTEMI. He was started on Zosyn and vancomycin for the cellulitis. Podiatry has seen him and has determined that there is not an urgent need for surgery. The plan is for an angio of the heart and then once cleared proceed to amputation of the 4th toe. He also notes loose stools, six times today, for the last five to six days. Denies F, C, N, V, anorexia, abdominal pain, GIBBONS, CP, SOB, cough, complaints. No discharge from the foot. There is a chronic heel ulcer as well. Negative on a 14 point review of systems except as noted in the HPI. Past Medical History Medical History: coronary artery disease, diabetes, hypertension, renal disease Past Surgical History Past Surgical Hx: no surgical history, other Family History Significant Family History: no pertinent family hx Social History Alcohol Use: none Smoking Status: Never smoker Drug Use: none Exam/Review of Systems Vital Signs Vitals Vital Signs Date Time Temp Pulse Resp B/P Pulse Ox O2 Delivery O2 Flow Rate FiO2 08/15/16 20:04 98.0 77 16 103/57 95 08/14/16 16:26 Room Air Intake and Output 08/14/16 08/14/16 08/15/16 15:00 23:00 07:00 Intake Total 450 ml 200 ml Output Total 3400 ml 200 ml Balance -2950 ml 0 ml Exam Constitutional: alert, oriented, well developed Psych: nl mood/affect, no complaints Head: atraumatic, normocephalic Eyes: EOMI, PERRL, nl conjunctiva, nl lids, nl sclera ENMT: nl external ears & nose, nl lips & teeth, nl nasal mucosa & septum Neck: non-tender, supple Respiratory: clear to auscultation, normal air movement Cardiovascular: nl pulses, regular rate and rhythm Gastrointestinal: nl liver, spleen, non-tender, soft Genitourinary - Male: nl penis, nl scrotum Neurological: ORACLE 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[employer]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 II-XII intact, nl mental status, nl speech, nl strength Skin: nl turgor, No rash or lesions Lymph: nl lymph nodes Additional Comments Left BKA with well healed stump Right foot wrapped in clean gauze dressing, the fourth toe is clearly gangrenous without foul smell or discharge, there is no erythema extending above the ankle Results Result Diagram: 08/14/16 1320 08/14/16 1320 Results 24 hrs Laboratory Tests Test 08/14/16 21:31 08/14/16 22:00 08/15/16 09:04 Bedside Glucose 127 Lactic Acid Level 1.6 Total Bilirubin 0.1 L Direct Bilirubin 0.00 Indirect Bilirubin 0.1 Aspartate Amino Transf (AST/SGOT) 34 Alanine Aminotransferase (ALT/SGPT) 35 Alkaline Phosphatase 174 H Troponin I 5.510 *H Total Protein 5.9 L Albumin 3.3 Medications Medications Current Medications Acetaminophen/ Hydrocodone Bitart ([place] (5/325)) 1 tab Q6H PRN PO MODERATE PAIN LEVEL 4-6; Start 08/14/16 at 14:30 Zolpidem Tartrate (Ambien) 5 mg QHS PRN PO SLEEP; Start 08/14/16 at 14:30 Acetaminophen (Tylenol Tab) 650 mg Q4 PRN PO PAIN AND OR ELEVATED TEMP; Start 08/14/16 at 14:30 Ascorbic Acid (Vitamin C) 500 mg DAILY PO Last administered on 08/15/16 09:13 ; Admin Dose 500 MG; Start 08/15/16 at 09:00 Aspirin (Aspirin) 81 mg DAILY PO Last administered on 08/15/16 09:14; Admin Dose 81 MG; Start 08/15/16 at 09:00 Atorvastatin Calcium (Lipitor) 20 mg QHS PO Last administered on 08/14/16 21:41 ; Admin Dose 20 MG; Start 08/14/16 at 21:00 Bisacodyl (Dulcolax Supp) 10 mg DAILY PRN [place] BM; Start 08/14/16 at 14:30 Calcitriol (Rocaltrol) 0.25 mcg DAILY PO Last administered on 08/15/16 09:14; Admin Dose 0.25 MCG; Start 08/15/16 at 09:00 Insulin Glargine (Lantus) 20 unit QHS SC Last administered on 08/14/16 22:06; Admin Dose 20 UNIT; Start 08/14/16 at 21:00 Loratadine (Claritin) 10 mg DAILY PO Last administered on 08/15/16 09:14; Admin Dose 10 MG; Start 08/15/16 at 09:00 Multivit/Ca Carb/ B Cmplx/FA/Prenat (Sarika-Nahomi) 1 tab DAILY PO Last administered on 08/15/16 09:14; Admin Dose 1 TAB; Start 08/15/16 at 09:00 Saccharomyces Boulardii (Florastor) 500 mg BID PO Last administered on 09:13; Admin Dose 500 MG; Start 08/14/16 at 21:00 Tamsulosin HCl (Flomax) 0.4 mg HS PO Last administered on 08/14/16 21:40; Admin Dose 0.4 MG; Start 08/14/16 at 21:00 Miscellaneous Information 1 ea NOTE XX ; Start 08/14/16 at 15:30 Glucose (Glutose) 15 gm Q15M PRN PO DECREASED GLUCOSE; Start 08/14/16 at 15:30 Glucose (Glutose) 22.5 gm Q15M PRN PO DECREASED GLUCOSE; Start 08/14/16 at 15:30 Dextrose (D50w Syringe) 25 ml Q15M PRN IV DECREASED GLUCOSE; Start 08/14/16 at 15:30 Dextrose (D50w Syringe) 50 ml Q15M PRN IV DECREASED GLUCOSE; Start 08/14/16 at 15:30 Glucagon (Glucagen) 1 mg Q15M PRN IM DECREASED GLUCOSE; Start 08/14/16 at 15:30 Glucose 15 gm 15 gm Q15M PRN BUCCAL DECREASED GLUCOSE; Start 08/14/16 at 15:30 Piperacillin Sod/ Tazobactam Sod 50 ml @ 100 mls/hr Q12 IVPB Last administered on 08/15/16 09:14; Admin Dose 100 MLS/HR; Start 08/14/16 at 21:00 Vancomycin HCl/ Sodium Chloride (Vancocin/NS) 150 ml @ 75 mls/hr 11 IVPB Last administered on 08/15/16 12:59; Admin Dose 75 MLS/HR; Start 08/15/16 at 11:00; Stop 08/15/16 at 23:00 Metoprolol Succinate (Toprol Xl) 12.5 mg DAILY PO Last administered on 17:48; Admin Dose 12.5 MG; Start 08/15/16 at 16:30 Nitroglycerin (Nitroglycerin 2% Oint) 0.5 inch BID TD ; Start 08/15/16 at 21:00 Diagnostic Test (Pha) (Accu-Chek) 1 ea 02 XX ; Start 08/16/16 at 02:00 ASAD SÁNCHEZ Aug 15, 2016 21:31
[2016-08-15] MEDS: TAMSULOSIN (SR) 0.4 MG CAP PO SCH (21:40)
[2016-08-15] MEDS: ATORVASTATIN 20 MG TAB PO SCH (21:41)
[2016-08-15] MEDS: INSULIN GLARGINE [LANtus] 3 ML PEN SC SCH (22:06)
[2016-08-16] VITALS (11 sets, daily range): BP systolic 105–125; BP diastolic 56–68; PULSE 54–73; RESP 16–18
[2016-08-16] MEDS: ACCU-CHEK XX SCH (02:00)
[2016-08-16 07:13] LABS: ADD SCAN DIFF NO
[2016-08-16 07:17] LABS: BASOPHILS % 0.3 % (0.0-2.0); EOSINOPHILS # 0.2 10^3/ul (0.0-0.5); EOSINOPHILS % 1.4 % (0.0-7.0); HEMATOCRIT 33.6 % (42.0-52.0); HEMOGLOBIN 10.7 g/dl (14.0-18.0); LYMPHOCYTES # 1.3 10^3/ul (0.8-2.9); LYMPHOCYTES % 12.4 % (15.0-51.0); MEAN CORPUSCULAR HEMOGLOBIN 29.8 pg (29.0-33.0); MEAN CORPUSCULAR HGB CONC 31.8 g/dl (32.0-37.0); MEAN CORPUSCULAR VOLUME 93.6 fl (82.0-101.0); MEAN PLATELET VOLUME 11.7 fl (7.4-10.4); MONOCYTE # 0.8 10^3/ul (0.3-0.9); MONOCYTES % 7.5 % (0.0-11.0); NEUTROPHIL # 8.3 10^3/ul (1.6-7.5); NEUTROPHILS % 78.1 % (39.0-77.0); PLATELET COUNT 141 10^3/UL (140-415); RED BLOOD COUNT 3.59 10^6/ul (4.70-6.10); RED CELL DISTRIBUTION WIDTH 15.4 % (11.5-14.5); WHITE BLOOD COUNT 10.6 10^3/ul (4.8-10.8)
[2016-08-16 07:42] LABS: CHOL/HDL RATIO 3.2 RATIO
[2016-08-16 07:55] LABS: MAGNESIUM 2.3 mg/dl (1.7-2.5); PHOSPHORUS 5.7 mg/dl (2.5-4.9)
[2016-08-16] MEDS: INSULIN ASPART [NOVOLOG] 3 ML PEN SC SCH ×4 (07:55→21:00)
[2016-08-16 07:59] LABS: ALBUMIN 3.1 g/dl (3.3-4.9); ALBUMIN/GLOBULIN RATIO 1.14; BILIRUBIN,INDIRECT 0.1 mg/dl (0-1.1); BILIRUBIN,TOTAL 0.1 mg/dl (0.2-1.3); CALCIUM 8.3 mg/dl (8.4-10.2); CREATININE 5.34 mg/dl (0.61-1.24); POTASSIUM 5.1 mmol/L (3.5-5.1); TOTAL PROTEIN 5.8 g/dl (6.1-8.1)
[2016-08-16 08:12] LABS: TROPONIN-I 6.03 ng/ml (0.00-0.12)
--- NOTE | 2016-08-16 08:26 | CONS ---
Date/Time of Note Date/Time of Note DATE: 08/16/16 TIME: 08:23 Assessment/Plan Assessment/Plan Problems: (1) ESRD (end stage renal disease) on dialysis Comment: for planned HD in am (2) Peripheral vascular disease Comment: will need toe amp AFTER gets angio to clear from cards perspective (3) HTN (hypertension) Comment: controlled (4) Cellulitis Status: Acute Comment: cont current abx... ID now on board (5) Diabetes Comment: on insulin (6) Elevated troponin Comment: c/w prior NSTEMI... to get coronary angio tomorrow PM.. will try to get HD in the AM tomorrow, then Consultation Date/Type/Reason Admit Date/Time Aug 14, 2016 at 14:49 Initial Consult Date 08/14/16 Type of Consultation: neph Referring Provider: CELESTE BHATT MD 24 HR Interval Summary Free Text/Dictation pt resting... asx... Appreciate both Cards and ID eval yesterday Exam/Review of Systems Vital Signs Vitals Vital Signs Date Time Temp Pulse Resp B/P Pulse Ox O2 Delivery O2 Flow Rate FiO2 08/16/16 08:06 73 08/16/16 07:42 97.9 16 125/68 97 08/14/16 16:26 Room Air Intake and Output 08/15/16 08/15/16 08/16/16 15:00 23:00 07:00 Intake Total 200 ml 750 ml 480 ml Output Total 300 ml Balance 200 ml 450 ml 480 ml Exam Constitutional: alert Psych: no complaints Neck: supple Cardiovascular: regular rate and rhythm Gastrointestinal: soft Extremities: edema (fxn avf) Results Result Diagram: 08/16/16 0603 08/16/16 0603 Results 24 hrs Laboratory Tests Test 08/15/16 09:04 08/15/16 22:00 08/16/16 06:03 08/16/16 07:56 Total Bilirubin 0.1 L 0.1 L Direct Bilirubin 0.00 0.00 Indirect Bilirubin 0.1 0.1 Aspartate Amino Transf (AST/SGOT) 34 48 H Alanine Aminotransferase (ALT/SGPT) 35 50 Alkaline Phosphatase 174 H 215 H Troponin I 5.510 *H 6.030 *H Total Protein 5.9 L 5.8 L Albumin 3.3 3.1 L Bedside Glucose 148 101 White Blood Count 10.6 Red Blood Count 3.59 L Hemoglobin 10.7 L Hematocrit 33.6 L Mean Corpuscular Volume 93.6 Mean Corpuscular Hemoglobin 29.8 Mean Corpuscular Hemoglobin Concent 31.8 L Red Cell Distribution Width 15.4 H Platelet Count 141 Mean Platelet Volume 11.7 H Neutrophils % 78.1 H Lymphocytes % 12.4 L Monocytes % 7.5 Eosinophils % 1.4 Basophils % 0.3 Nucleated Red Blood Cells % 0.0 Neutrophils # 8.3 H Lymphocytes # 1.3 Monocytes # 0.8 Eosinophils # 0.2 Basophils # 0.0 Nucleated Red Blood Cells # 0.0 Sodium Level 137 Potassium Level 5.1 Chloride Level 97 Carbon Dioxide Level 27 Anion Gap 18 H Blood Urea Nitrogen 58 H Creatinine 5.34 H Glucose Level 96 Calcium Level 8.3 L Phosphorus Level 5.7 H Magnesium Level 2.3 Globulin 2.70 Albumin/Globulin Ratio 1.14 Triglycerides Level 76 Cholesterol Level 77 L LDL Cholesterol, Calculated 38 HDL Cholesterol 24 L Cholesterol/HDL Ratio 3.2 Thyroid Stimulating Hormone (TSH) Pending Medications Medications Current Medications Acetaminophen/ Hydrocodone Bitart ([place] (5/325)) 1 tab Q6H PRN PO MODERATE PAIN LEVEL 4-6; Start 08/14/16 at 14:30 Zolpidem Tartrate (Ambien) 5 mg QHS PRN PO SLEEP; Start 08/14/16 at 14:30 Acetaminophen (Tylenol Tab) 650 mg Q4 PRN PO PAIN AND OR ELEVATED TEMP; Start 08/14/16 at 14:30 Ascorbic Acid (Vitamin C) 500 mg DAILY PO Last administered on 08/15/16 09:13 ; Admin Dose 500 MG; Start 08/15/16 at 09:00 Aspirin (Aspirin) 81 mg DAILY PO Last administered on 08/15/16 09:14; Admin Dose 81 MG; Start 08/15/16 at 09:00 Atorvastatin Calcium (Lipitor) 20 mg QHS PO Last administered on 08/15/16 21: 41; Admin Dose 20 MG; Start 08/14/16 at 21:00 Bisacodyl (Dulcolax Supp) 10 mg DAILY PRN [place] BM; Start 08/14/16 at 14:30 Calcitriol (Rocaltrol) 0.25 mcg DAILY PO Last administered on 08/15/16 09:14; Admin Dose 0.25 MCG; Start 08/15/16 at 09:00 Insulin Glargine (Lantus) 20 unit QHS SC Last administered on 08/15/16 22:06; Admin Dose 20 UNIT; Start 08/14/16 at 21:00 Loratadine (Claritin) 10 mg DAILY PO Last administered on 08/15/16 09:14; Admin Dose 10 MG; Start 08/15/16 at 09:00 Multivit/Ca Carb/ B Cmplx/FA/Prenat (Sarika-Nahomi) 1 tab DAILY PO Last administered on 08/15/16 09:14; Admin Dose 1 TAB; Start 08/15/16 at 09:00 Saccharomyces Boulardii (Florastor) 500 mg BID PO Last administered on 21:41; Admin Dose 500 MG; Start 08/14/16 at 21:00 Tamsulosin HCl (Flomax) 0.4 mg HS PO Last administered on 08/15/16 21:40; Admin Dose 0.4 MG; Start 08/14/16 at 21:00 Miscellaneous Information 1 ea NOTE XX ; Start 08/14/16 at 15:30 Glucose (Glutose) 15 gm Q15M PRN PO DECREASED GLUCOSE; Start 08/14/16 at 15:30 Glucose (Glutose) 22.5 gm Q15M PRN PO DECREASED GLUCOSE; Start 08/14/16 at 15:30 Dextrose (D50w Syringe) 25 ml Q15M PRN IV DECREASED GLUCOSE; Start 08/14/16 at 15:30 Dextrose (D50w Syringe) 50 ml Q15M PRN IV DECREASED GLUCOSE; Start 08/14/16 at 15:30 Glucagon (Glucagen) 1 mg Q15M PRN IM DECREASED GLUCOSE; Start 08/14/16 at 15:30 Glucose 15 gm 15 gm Q15M PRN BUCCAL DECREASED GLUCOSE; Start 08/14/16 at 15:30 Piperacillin Sod/ Tazobactam Sod (Zosyn 2.25gm/ 50ml (Pmx)) 50 ml @ 100 mls/hr Q12 IVPB Last administered on 08/15/16 21:46; Admin Dose 100 MLS/HR; Start 08/14/16 at 21:00 Metoprolol Succinate (Toprol Xl) 12.5 mg DAILY PO Last administered on t 17:48; Admin Dose 12.5 MG; Start 08/15/16 at 16:30 Nitroglycerin (Nitroglycerin 2% Oint) 0.5 inch BID TD ; Start 08/15/16 at 21:00 Diagnostic Test (Pha) (Accu-Chek) 1 ea 02 XX ; Start 08/16/16 at 02:00 ARCHIE YOON MD Aug 16, 2016 08:26
[2016-08-16 08:27] LABS: THYROID STIMULATING HORMONE 1.63 MIU/L (0.465-4.680)
[2016-08-16] MEDS: CALCIUM ACETATE 667 MG CAP PO SCH ×3 (09:05→17:33)
[2016-08-16] MEDS: ASPIRIN 81 MG TAB PO SCH (09:05)
[2016-08-16] MEDS: LORATADINE 10 MG TAB PO SCH (09:05)
[2016-08-16] MEDS: MULTIVIT/CA CARB/B CMPLX/FA TAB PO SCH (09:06)
[2016-08-16] MEDS: METOPROLOL (XL) 25 MG TAB PO SCH (09:06)
[2016-08-16] MEDS: ASCORBIC ACID 500 MG TAB PO SCH (09:06)
[2016-08-16] MEDS: SACCHAROMYCES BOULARDII 250 MG CAP PO SCH ×2 (09:07→21:12)
[2016-08-16] MEDS: PIPER-TAZO 2.25 GM (PMX) 50 ML IVPB SCH ×2 (09:07→21:12)
[2016-08-16] MEDS: CALCITRIOL 0.25 MCG CAP PO SCH (09:07)
[2016-08-16] MEDS: CREON (24K-76K-120K) 1 CAP PO SCH ×3 (09:07→17:33)
[2016-08-16] MEDS: NITROGLYCERIN 2% 1 GM OINT PKT TD SCH ×2 (09:08→21:00)
[2016-08-16] MEDS: ONDANSETRON 4 MG INJ IV PRN (09:23)
[2016-08-16] MEDS ORDERED: ONDANSETRON (ODT) 4 MG TAB ODT PRN (09:30)
--- NOTE | 2016-08-16 14:23 | PN ---
Date/Time of Note Date/Time of Note DATE: 08/16/16 TIME: 14:15 SUBJECTIVE: Patient without complaints denies any chest pains dyspnea or palpitations has very little pain in his right toe area. Chart reviewed medications and laboratory studies. OBJECTIVE: Vital signs please see chart. ROS: Patient denied any fevers, chills, weight loss, nausea, vomiting, diarrhea, constipation, cough, hemoptysis, dysuria, hematuria, nocturia, any neurologic symptoms, headache, any chest pains, dyspnea, PND, orthopnea, leg edema, or palpitations. All other review of systems were normal. Mild right foot pain, 14 point review of systems otherwise negative. HEENT; no JVD, no HJR, carotids 2 over 4+ without bruits. Chest: Clear to auscultation and percussion, no rales, wheezes or rhonchi. Cardiac: S4, S1, S2 with normal physiologic splitting, 1/6 systolic ejection murmur, no rub click or diastolic murmur noted. Abdominal: Bowel sounds positive, soft nontender, no abdominal bruit noted, no hepatosplenomegaly. Extremities: No cyanosis, clubbing, or edema. Negative Homans sign or palpable cords. Pulses: 2/4 pulses diffusely no bruits noted. Left BKA, faint left femoral pulse 1/4+ right femoral pulse. Right foot bandaged. LABORATORY STUDIES; White count 10.6, hemoglobin 10.7, hematocrit 33.7, platelets 141,000, troponin increased to 6.03, normal TSH, normal electrolytes potassium 5.1, BUN 58, creatinine 5.3, magnesium and phosphate normal, total cholesterol 77, triglycerides 76, HDL 24, LDL 38. Telemetry sinus rhythm without significant bradycardia or pauses or ventricular ectopy per monitor check. ASSESSMENT: 1. Non-ST elevation myocardial infarction suspect inferior wall with elevated troponin, subtle EKG changes and new inferior wall motion abnormality. 2. Chronic renal failure on dialysis. 3. Peripheral vascular disease status post left BKA, status post right fem-tib bypass, now with right toe gangrene. 4. Orthostatic hypotension. 5. Anemia of chronic disease. 6. Moderate aortic stenosis. 7. Hyperlipidemiacontrolled. 8. Type 2 diabetes. 9. Mild aortic regurgitation on echocardiography. 10. Benign prostatic hypertrophy 11. Right toe gangrene for intervention in the near future. At this time the patient's troponin continues to rise EKG not done as ordered we will check and follow. Patient scheduled for angiography tomorrow afternoon discussed with Dr. Sibley who will dialyze the patient early in the morning. All questions answered and patient concurs with the plan please see yesterday's note for risks and complications discussed. PLAN: 1. Dialysis tomorrow early in the morning followed by angiography at approximately 3:30 in the afternoon. 2. Continue current regimen of aspirin, decrease Lipitor to 10 mg, low-dose paced and metoprolol, continue antibiotics. 3. Defer any intervention on right toe until angiography and possible intervention complete. CARINE ALONSO MD Aug 16, 2016 14:23
--- NOTE | 2016-08-16 15:11 | RADRPT ---
Vent Rate: 65 bpm RR Interval: 0 msec SD Interval: 168 msec QRS Duration: 110 msec QT Interval: 444 msec QTC Interval: 461 msec P-R-T [place]: 63 - 70 - 86 degrees Normal sinus rhythm Borderline ECG Nonspecific ST-T changes No previous tracing available for comparison Electronically Signed By: Navjot Maldonado [id number]
--- NOTE | 2016-08-16 15:22 | CONS ---
Date/Time of Note Date/Time of Note DATE: 08/16/16 TIME: 15:19 Assessment/Plan Assessment/Plan Chief Complaint/Hosp Course The patient is a 70 y/o man with a history of DM complicated by vascular disease and ESRD now on HD x2y who presents with cellulitis of the RLE. The patient has a history of vascular compromised of the RLE and underwent a bypass earlier this year that was successful excepting the 4th toe which has been gangrenous since. About 2-3 days prior to admission he noted redness of the forefoot which began to extend to the lower leg. He presented to the ED and was found the have an NSTEMI. He was started on Zosyn and vancomycin for the cellulitis. Podiatry has seen him and has determined that there is not an urgent need for surgery. The plan is for an angio of the heart and then once cleared proceed to amputation of the 4th toe. He also notes loose stools, six times today, for the last five to six days. Denies F, C, N, V, anorexia, abdominal pain, GIBBONS, CP, SOB, cough, complaints. No discharge from the foot. There is a chronic heel ulcer as well. Problems: Additional Assessment/Plan This is a 70y/o man with: 1. Right fourth toe gangrene with associated foot cellulitis. Agree with broad coverage at this time pending further clinical and microbiologic data and, in the coming days, amputation per podiatry. ESR is normal and the CRP is mildly elevated, perhaps due to the NSTEMI. 2. CAD with NSTEMI. As per team 3. DM with complications of PVD, nephropathy. 4. 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 5. Hypertension, stable 6. ESRD on HD MWF 7. Diarrhea. Uncertain etiology. C diff negative and stool culture is normal scooter thus far. I was not able to send the stool for norovirus. Suggest contact isolation. 8. Blood culture with GPCCl in 1/2. 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 Continue IV vancomycin. Consultation Date/Type/Reason Admit Date/Time Aug 14, 2016 at 14:49 Initial Consult Date 08/15/16 Type of Consultation: Infectious Diseases Referring Provider: CELESTE BHATT MD 24 HR Interval Summary Free Text/Dictation Feeling a bit better today. Awaiting angio tomorrow. He has had three episodes of loose not watery stool today. No abdominal pain, N, V, CP, SOB, GIBBONS Exam/Review of Systems Vital Signs Vitals Vital Signs Date Time Temp Pulse Resp B/P Pulse Ox O2 Delivery O2 Flow Rate FiO2 08/16/16 12:05 63 08/16/16 11:20 97.9 18 105/65 96 08/14/16 16:26 Room Air Intake and Output 08/15/16 08/15/16 08/16/16 15:00 23:00 07:00 Intake Total 200 ml 750 ml 480 ml Output Total 300 ml Balance 200 ml 450 ml 480 ml Exam Constitutional: alert, oriented, well developed Psych: nl mood/affect, no complaints Head: atraumatic, normocephalic Eyes: EOMI, PERRL, nl conjunctiva, nl lids, nl sclera ENMT: nl external ears & nose, nl lips & teeth, nl nasal mucosa & septum Neck: non-tender, supple Respiratory: clear to auscultation, normal air movement Cardiovascular: nl pulses, regular rate and rhythm Gastrointestinal: nl liver, spleen, non-tender, soft Genitourinary - Male: nl penis, nl scrotum Neurological: 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 II-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 intact, nl mental status, nl speech, nl strength Skin: nl turgor, No rash or lesions Lymph: nl lymph nodes Additional Comments Left BKA with well healed stump, RUE fistula with thrill Right foot wrapped in clean gauze dressing, the fourth toe is clearly gangrenous without foul smell or discharge, there is no erythema extending above the ankle Results Result Diagram: 08/16/1660208/16/16 06 Results 24 hrs Laboratory Tests Test 08/15/16 22:00 08/16/16 06:03 08/16/16 07:56 08/16/16 12:10 Bedside Glucose 148 101 93 White Blood Count 10.6 Red Blood Count 3.59 L Hemoglobin 10.7 L Hematocrit 33.6 L Mean Corpuscular Volume 93.6 Mean Corpuscular Hemoglobin 29.8 Mean Corpuscular Hemoglobin Concent 31.8 L Red Cell Distribution Width 15.4 H Platelet Count 141 Mean Platelet Volume 11.7 H Neutrophils % 78.1 H Lymphocytes % 12.4 L Monocytes % 7.5 Eosinophils % 1.4 Basophils % 0.3 Nucleated Red Blood Cells % 0.0 Neutrophils # 8.3 H Lymphocytes # 1.3 Monocytes # 0.8 Eosinophils # 0.2 Basophils # 0.0 Nucleated Red Blood Cells # 0.0 Sodium Level 137 Potassium Level 5.1 Chloride Level 97 Carbon Dioxide Level 27 Anion Gap 18 H Blood Urea Nitrogen 58 H Creatinine 5.34 H Glucose Level 96 Calcium Level 8.3 L Phosphorus Level 5.7 H Magnesium Level 2.3 Total Bilirubin 0.1 L Direct Bilirubin 0.00 Indirect Bilirubin 0.1 Aspartate Amino Transf (AST/SGOT) 48 H Alanine Aminotransferase (ALT/SGPT) 50 Alkaline Phosphatase 215 H Troponin I 6.030 *H Total Protein 5.8 L Albumin 3.1 L Globulin 2.70 Albumin/Globulin Ratio 1.14 Triglycerides Level 76 Cholesterol Level 77 L LDL Cholesterol, Calculated 38 HDL Cholesterol 24 L Cholesterol/HDL Ratio 3.2 Thyroid Stimulating Hormone (TSH) 1.630 Medications Medications Current Medications Acetaminophen/ Hydrocodone Bitart ([place] (5/325)) 1 tab Q6H PRN PO MODERATE PAIN LEVEL 4-6; Start 08/14/16 at 14:30 Zolpidem Tartrate (Ambien) 5 mg QHS PRN PO SLEEP; Start 08/14/16 at 14:30 Acetaminophen (Tylenol Tab) 650 mg Q4 PRN PO PAIN AND OR ELEVATED TEMP; Start 08/14/16 at 14:30 Ascorbic Acid (Vitamin C) 500 mg DAILY PO Last administered on 08/16/16 09:06 ; Admin Dose 500 MG; Start 08/15/16 at 09:00 Aspirin (Aspirin) 81 mg DAILY PO Last administered on 08/16/16 09:05; Admin Dose 81 MG; Start 08/15/16 at 09:00 Atorvastatin Calcium (Lipitor) 20 mg QHS PO Last administered on 08/15/16 21: 41; Admin Dose 20 MG; Start 08/14/16 at 21:00 Bisacodyl (Dulcolax Supp) 10 mg DAILY PRN [place] BM; Start 08/14/16 at 14:30 Calcitriol (Rocaltrol) 0.25 mcg DAILY PO Last administered on 08/16/16 09:07; Admin Dose 0.25 MCG; Start 08/15/16 at 09:00 Insulin Glargine (Lantus) 20 unit QHS SC Last administered on 08/15/16 22:06; Admin Dose 20 UNIT; Start 08/14/16 at 21:00 Loratadine (Claritin) 10 mg DAILY PO Last administered on 08/16/16 09:05; Admin Dose 10 MG; Start 08/15/16 at 09:00 Multivit/Ca Carb/ B Cmplx/FA/Prenat (Sarika-Nahomi) 1 tab DAILY PO Last administered on 08/16/16 09:06; Admin Dose 1 TAB; Start 08/15/16 at 09:00 Saccharomyces Boulardii (Florastor) 500 mg BID PO Last administered on 09:07; Admin Dose 500 MG; Start 08/14/16 at 21:00 Tamsulosin HCl (Flomax) 0.4 mg HS PO Last administered on 08/15/16 21:40; Admin Dose 0.4 MG; Start 08/14/16 at 21:00 Miscellaneous Information 1 ea NOTE XX ; Start 08/14/16 at 15:30 Glucose (Glutose) 15 gm Q15M PRN PO DECREASED GLUCOSE; Start 08/14/16 at 15:30 Glucose (Glutose) 22.5 gm Q15M PRN PO DECREASED GLUCOSE; Start 08/14/16 at 15:30 Dextrose (D50w Syringe) 25 ml Q15M PRN IV DECREASED GLUCOSE; Start 08/14/16 at 15:30 Dextrose (D50w Syringe) 50 ml Q15M PRN IV DECREASED GLUCOSE; Start 08/14/16 at 15:30 Glucagon (Glucagen) 1 mg Q15M PRN IM DECREASED GLUCOSE; Start 08/14/16 at 15:30 Glucose 15 gm 15 gm Q15M PRN BUCCAL DECREASED GLUCOSE; Start 08/14/16 at 15:30 Piperacillin Sod/ Tazobactam Sod (Zosyn 2.25gm/ 50ml (Pmx)) 50 ml @ 100 mls/hr Q12 IVPB Last administered on 08/16/16 09:07; Admin Dose 100 MLS/HR; Start 08/14/16 at 21:00 Metoprolol Succinate (Toprol Xl) 12.5 mg DAILY PO Last administered on 09:06; Admin Dose 12.5 MG; Start 08/15/16 at 16:30 Nitroglycerin (Nitroglycerin 2% Oint) 0.5 inch BID TD Last administered on 08/16 09:08; Admin Dose 0.5 INCH; Start 08/15/16 at 21:00 Diagnostic Test (Pha) (Accu-Chek) 1 ea 02 XX ; Start 08/16/16 at 02:00 Epoetin Nito (Epogen (Esrd)) 10,000 units MoWeFr@17 SC ; Start 08/17/16 at 17:00 Ondansetron HCl (Zofran Inj) 4 mg Q4H PRN IV NAUSEA AND/OR VOMITING Last administered on 08/16/16 09:23; Admin Dose 4 MG; Start 08/16/16 at 09:30 Ondansetron HCl (Zofran Odt) 4 mg Q6H PRN ODT NAUSEA; Start 08/16/16 at 09:30 Miscellaneous Information (*Rx Drug Level Order Reminder*) RANDOM VANCOMYCIN GOSIAL 6... ONCE ONCE XX ; Start 08/17/16 at 05:00; Stop 08/17/16 at 05:01 ASAD SÁNCHEZ Aug 16, 2016 15:22
[2016-08-16] MEDS: ATORVASTATIN 20 MG TAB PO SCH (21:12)
[2016-08-16] MEDS: TAMSULOSIN (SR) 0.4 MG CAP PO SCH (21:14)
[2016-08-16] MEDS: INSULIN GLARGINE [LANtus] 3 ML PEN SC SCH (21:28)
[2016-08-17] VITALS (25 sets, daily range): BP systolic 97–134; BP diastolic 52–75; PULSE 65–124; RESP 16–19
[2016-08-17] MEDS: ACCU-CHEK XX SCH (02:00)
[2016-08-17 05:56] LABS: ADD SCAN DIFF NO
[2016-08-17 06:11] LABS: BASOPHILS % 0.3 % (0.0-2.0); EOSINOPHILS # 0.2 10^3/ul (0.0-0.5); HEMATOCRIT 33.1 % (42.0-52.0); HEMOGLOBIN 10.7 g/dl (14.0-18.0); LYMPHOCYTES # 1.5 10^3/ul (0.8-2.9); LYMPHOCYTES % 12.5 % (15.0-51.0); MEAN CORPUSCULAR HEMOGLOBIN 29.7 pg (29.0-33.0); MEAN CORPUSCULAR HGB CONC 32.3 g/dl (32.0-37.0); MEAN CORPUSCULAR VOLUME 91.9 fl (82.0-101.0); MEAN PLATELET VOLUME 11.3 fl (7.4-10.4); MONOCYTE # 0.9 10^3/ul (0.3-0.9); MONOCYTES % 7.7 % (0.0-11.0); NEUTROPHILS % 77.1 % (39.0-77.0); PLATELET COUNT 137 10^3/UL (140-415); RED CELL DISTRIBUTION WIDTH 15.7 % (11.5-14.5); WHITE BLOOD COUNT 11.7 10^3/ul (4.8-10.8)
[2016-08-17 06:44] LABS: CALCIUM 7.9 mg/dl (8.4-10.2); CREATININE 6.32 mg/dl (0.61-1.24); POTASSIUM 4.9 mmol/L (3.5-5.1)
[2016-08-17 06:55] LABS: TROPONIN-I 3.49 ng/ml (0.00-0.12)
[2016-08-17] MEDS: CREON (24K-76K-120K) 1 CAP PO SCH ×4 (07:42→17:12)
[2016-08-17] MEDS: CALCIUM ACETATE 667 MG CAP PO SCH ×4 (07:42→17:12)
--- NOTE | 2016-08-17 07:48 | CONS ---
Date/Time of Note Date/Time of Note DATE: 08/17/16 TIME: 07:41 Assessment/Plan Assessment/Plan Chief Complaint/Hosp Course 1) R 4th toe gangrene and RLE cellulitis awaits angiography and amputation can likely switch to po antibiotics post amputation continue with vanco/zosyn at present 2) CoNS in blood only one in four bottles, likely this represents contamination and no need for treatment 3) ESRD to get HD today 4)DM 5) diarrhea stools studies have been negative change probiotic to include multiple types of bacteria Problems: Consultation Date/Type/Reason Admit Date/Time Aug 14, 2016 at 14:49 Initial Consult Date 08/15/16 Type of Consultation: Infectious Diseases Referring Provider: CELESTE BHATT MD 24 HR Interval Summary Free Text/Dictation no N, V had about 5 loose stools yesterday no cramping no SOB, CP Exam/Review of Systems Vital Signs Vitals Vital Signs Date Time Temp Pulse Resp B/P Pulse Ox O2 Delivery O2 Flow Rate FiO2 08/17/16 07:08 98.3 71 18 122/68 95 08/14/16 16:26 Room Air Intake and Output 08/16/16 08/16/16 08/17/16 15:00 23:00 07:00 Intake Total 1050 ml 500 ml Balance 1050 ml 500 ml Exam Constitutional: alert, oriented Eyes: nl sclera ENMT: mucosa pink and moist Respiratory: clear to auscultation Cardiovascular: regular rate and rhythm Gastrointestinal: non-tender, soft Extremities: other (R foot is bandaged, R ant calf has less redness than in pictures on chart) Results Result Diagram: 08/17/16 0540 08/17/16 0540 Results 24 hrs Laboratory Tests Test 08/16/16 07:56 08/16/16 12:10 08/16/16 17:30 08/16/16 21:23 Bedside Glucose 101 93 115 142 Test 08/17/16 05:40 White Blood Count 11.7 H Red Blood Count 3.60 L Hemoglobin 10.7 L Hematocrit 33.1 L Mean Corpuscular Volume 91.9 Mean Corpuscular Hemoglobin 29.7 Mean Corpuscular Hemoglobin Concent 32.3 Red Cell Distribution Width 15.7 H Platelet Count 137 L Mean Platelet Volume 11.3 H Neutrophils % 77.1 H Lymphocytes % 12.5 L Monocytes % 7.7 Eosinophils % 2.0 Basophils % 0.3 Nucleated Red Blood Cells % 0.0 Neutrophils # 9.0 H Lymphocytes # 1.5 Monocytes # 0.9 Eosinophils # 0.2 Basophils # 0.0 Nucleated Red Blood Cells # 0.0 Sodium Level 134 L Potassium Level 4.9 Chloride Level 98 Carbon Dioxide Level 22 Anion Gap 19 H Blood Urea Nitrogen 74 H Creatinine 6.32 H Glucose Level 88 Calcium Level 7.9 L Troponin I 3.490 *H Random Vancomycin Level 13.3 Medications Medications Current Medications Acetaminophen/ Hydrocodone Bitart ([place] (5/325)) 1 tab Q6H PRN PO MODERATE PAIN LEVEL 4-6; Start 08/14/16 at 14:30 Zolpidem Tartrate (Ambien) 5 mg QHS PRN PO SLEEP; Start 08/14/16 at 14:30 Acetaminophen (Tylenol Tab) 650 mg Q4 PRN PO PAIN AND OR ELEVATED TEMP; Start 08/14/16 at 14:30 Ascorbic Acid (Vitamin C) 500 mg DAILY PO Last administered on 08/16/16 09:06 ; Admin Dose 500 MG; Start 08/15/16 at 09:00 Aspirin (Aspirin) 81 mg DAILY PO Last administered on 08/16/16 09:05; Admin Dose 81 MG; Start 08/15/16 at 09:00 Atorvastatin Calcium (Lipitor) 20 mg QHS PO Last administered on 08/16/16 21: 12; Admin Dose 20 MG; Start 08/14/16 at 21:00 Bisacodyl (Dulcolax Supp) 10 mg DAILY PRN [place] BM; Start 08/14/16 at 14:30 Calcitriol (Rocaltrol) 0.25 mcg DAILY PO Last administered on 08/16/16 09:07; Admin Dose 0.25 MCG; Start 08/15/16 at 09:00 Insulin Glargine (Lantus) 20 unit QHS SC Last administered on 08/16/16 21:28; Admin Dose 20 UNIT; Start 08/14/16 at 21:00 Loratadine (Claritin) 10 mg DAILY PO Last administered on 08/16/16 09:05; Admin Dose 10 MG; Start 08/15/16 at 09:00 Multivit/Ca Carb/ B Cmplx/FA/Prenat (Sarika-Nahomi) 1 tab DAILY PO Last administered on 08/16/16 09:06; Admin Dose 1 TAB; Start 08/15/16 at 09:00 Saccharomyces Boulardii (Florastor) 500 mg BID PO Last administered on 21:12; Admin Dose 500 MG; Start 08/14/16 at 21:00 Tamsulosin HCl (Flomax) 0.4 mg HS PO Last administered on 08/16/16 21:14; Admin Dose 0.4 MG; Start 08/14/16 at 21:00 Miscellaneous Information 1 ea NOTE XX ; Start 08/14/16 at 15:30 Glucose (Glutose) 15 gm Q15M PRN PO DECREASED GLUCOSE; Start 08/14/16 at 15:30 Glucose (Glutose) 22.5 gm Q15M PRN PO DECREASED GLUCOSE; Start 08/14/16 at 15:30 Dextrose (D50w Syringe) 25 ml Q15M PRN IV DECREASED GLUCOSE; Start 08/14/16 at 15:30 Dextrose (D50w Syringe) 50 ml Q15M PRN IV DECREASED GLUCOSE; Start 08/14/16 at 15:30 Glucagon (Glucagen) 1 mg Q15M PRN IM DECREASED GLUCOSE; Start 08/14/16 at 15:30 Glucose 15 gm 15 gm Q15M PRN BUCCAL DECREASED GLUCOSE; Start 08/14/16 at 15:30 Piperacillin Sod/ Tazobactam Sod (Zosyn 2.25gm/ 50ml (Pmx)) 50 ml @ 100 mls/hr Q12 IVPB Last administered on 08/16/16 21:12; Admin Dose 100 MLS/HR; Start 08/14/16 at 21:00 Metoprolol Succinate (Toprol Xl) 12.5 mg DAILY PO Last administered on 09:06; Admin Dose 12.5 MG; Start 08/15/16 at 16:30 Nitroglycerin (Nitroglycerin 2% Oint) 0.5 inch BID TD Last administered on 08/16 09:08; Admin Dose 0.5 INCH; Start 08/15/16 at 21:00 Diagnostic Test (Pha) (Accu-Chek) 1 ea 02 XX ; Start 08/16/16 at 02:00 Epoetin Nito (Epogen (Esrd)) 10,000 units MoWeFr@17 SC ; Start 08/17/16 at 17:00 Ondansetron HCl (Zofran Inj) 4 mg Q4H PRN IV NAUSEA AND/OR VOMITING Last administered on 08/16/16t 09:23; Admin Dose 4 MG; Start 08/16/16 at 09:30 Ondansetron HCl (Zofran Odt) 4 mg Q6H PRN ODT NAUSEA; Start 08/16/16 at 09:30 PEDRO PATRICK MD Aug 17, 2016 07:48
[2016-08-17] MEDS: INSULIN ASPART [NOVOLOG] 3 ML PEN SC SCH ×4 (07:55→21:00)
--- NOTE | 2016-08-17 07:56 | CONS ---
DATE OF ADMISSION: 08/18/2016 DATE OF CONSULTATION: 08/14/2016 VASCULAR SURGERY CONSULTATION Dear Doctors: Mr. Hayden is a 70-year-old gentleman known to our vascular surgery service group secondary to history of bilateral lower extremity atherosclerosis and gangrene. Unfortunately, the patient underwent le ft lower extremity below knee amputation secondary to having extensive Charcot foot and nonhealing d iabetic foot ulcer and atherosclerotic disease. Post his below knee amputation, the patient develop ed wound dehiscence and nonhealing wounds of his stump in which he underwent revision of the stump w ith a flap closure and local wound care and VAC therapy and collagen based dressings. The patient h as done well from that aspect and has healed BKA stump and doing well with his physical therapy for strengthening and eventual prosthetic fitting. Further, the patient has had history of right lower extremity gangrene in which he underwent revascu larization with common femoral artery to anterior tibial artery in situ bypass. The patient does co me to our vascular surgery surveillance office for evaluation, and he was seen last on 07/09/2016 fo r evaluation of his graft. Post his revascularization, the patient had developed some eschar over t he area of his third and fourth toe that had been gradually healing and doing well. Further, the isi huynh had developed a heel ulcer secondary to his nursing facility as the patient had pressure decub itus ulcer development. The patient, at the moment, was evaluated by our podiatry colleagues by bonnie m it was identified the patient having development of gangrene of his fourth toe and eschar of the t hird toe that has developed over the past week. The patient was admitted today for IV antibiotics a s he has erythema that extends to the upper calf area. At the moment, he denies shortness of breath , chest pain, nausea, vomiting, fever, or chills. REVIEW OF SYSTEMS: A 14-point review performed and negative except what is mentioned in the HPI. PAST MEDICAL HISTORY: Entails hypertension, diabetes, pancreatitis, end-stage renal disease on hemo dialysis Wednesday, Wednesday, Wednesday, bilateral lower extremity atherosclerosis and gangrene, diabetic neuropathy, diabetic retinopathy, diabetic nephropathy, UTI, and significant postural hypotension. PAST SURGICAL HISTORY: Vasectomy, tonsillectomy, cholecystectomy, right eye cataract surgery, right upper extremity AV fistula creation, left below knee amputation, right lower extremity revasculariz ation. FAMILY HISTORY: Positive for congestive heart failure and coronary artery disease. SOCIAL HISTORY: Positive for smoking. Currently denies tobacco, alcohol, or illicit drug use. PHYSICAL EXAMINATION: GENERAL: Alert and oriented x3, no apparent distress. HEENT: Normocephalic, atraumatic. EOMI. Mucosa moist. NECK: Supple. No carotid bruit. PULMONARY: Clear to auscultation bilaterally. No crackles. CARDIOVASCULAR: S1, S2 present. No murmurs. ABDOMEN: Soft, nontender, nondistended. Bowel sounds positive. EXTREMITIES: RIGHT LOWER EXTREMITY: Palpable femoral pulse, palpable graft at the ankle. Motor, sensory intact. Cap refill 2 to 3 seconds. Surgical scar is well healed. There is eschar over the area of the th ird toe and gangrene of the fourth toe with erythema that extends from the foot to the upper espinal ar ea. He does have also 1 to 2+ edema. LEFT LOWER EXTREMITY: Palpable femoral pulse. Motor and sensory intact. Stump with cap refill 3 s econds. Previous wound has healed well. ASSESSMENT AND PLAN: Bilateral lower extremity atherosclerosis with right lower extremity third and fourth toe gangrene. It seems the patient has been doing well from the standpoint of his revascula rization; however, the patient has recently developed a right lower extremity diabetic foot infectio n and gangrene of his third and fourth toes. I have discussed the matter with our podiatry colleagu nadja as he is cleared from a vascular surgery standpoint, and he may undergo debridement, possible amp utation. We will plan to obtain lower extremity arterial studies to further evaluate his bypass for velocity and flow. Optimize vascular status (BP meds, diet, nutrition, exercise, sugar control, antiplatelet.) Discussed findings, plan, and management with the patient. He understands. Continue with antibiotics for now. Thank you for allowing us to partake in the care of your patient. Please call with any questions. Dictated By: MARTÍNEZ JOSHUA/YOANDY Conf#: [id number] DID#: [id number]
--- NOTE | 2016-08-17 08:24 | PN ---
Date/Time of Note Date/Time of Note DATE: 08/17/16 TIME: 08:20 SUBJECTIVE: Patient without complaints denies any chest pains dyspnea or palpitations has very little pain in his right toe area, undergoing dialysis at present. Chart reviewed medications and laboratory studies. OBJECTIVE: Vital signs please see chart. ROS: Patient denied any fevers, chills, weight loss, nausea, vomiting, diarrhea, constipation, cough, hemoptysis, dysuria, hematuria, nocturia, any neurologic symptoms, headache, any chest pains, dyspnea, PND, orthopnea, leg edema, or palpitations. All other review of systems were normal. Mild right foot pain, 14 point review of systems otherwise negative. HEENT; no JVD, no HJR, carotids 2 over 4+ without bruits. Chest: Clear to auscultation and percussion, no rales, wheezes or rhonchi. Cardiac: S4, S1, S2 with normal physiologic splitting, 1/6 systolic ejection murmur, no rub click or diastolic murmur noted. Abdominal: Bowel sounds positive, soft nontender, no abdominal bruit noted, no hepatosplenomegaly. Extremities: No cyanosis, clubbing, or edema. Negative Homans sign or palpable cords. Pulses: 2/4 pulses diffusely no bruits noted. Left BKA, faint left femoral pulse 1/4+ right femoral pulse. Right foot bandaged. LABORATORY STUDIES; White count 11.7, hemoglobin 10.7, hematocrit 33.1, platelets 137, electrolytes normal potassium 3.9, BUN 74 creatinine 6.3, troponin decreased to 3.49. EKG revealed sinus rhythm at 72 low voltage in limb leads poor R-wave progression nonspecific ST abnormality no acute changes. Telemetry sinus rhythm without significant bradycardia or pauses or ventricular ectopy per monitor check. ASSESSMENT: 1. Non-ST elevation myocardial infarction suspect inferior wall with elevated troponin, subtle EKG changes and new inferior wall motion abnormality. 2. Chronic renal failure on dialysis. 3. Peripheral vascular disease status post left BKA, status post right fem-tib bypass, now with right toe gangrene. 4. Orthostatic hypotension. 5. Anemia of chronic disease. 6. Moderate aortic stenosis. 7. Hyperlipidemiacontrolled. 8. Type 2 diabetes. 9. Mild aortic regurgitation on echocardiography. 10. Benign prostatic hypertrophy 11. Right toe gangrene for intervention in the near future. At this time the patient's troponin has leveled off and is decreasing and there are no EKG changes and no ectopy noted. Patient scheduled for angiography this afternoon discussed with Dr. Sibley . All questions answered and patient concurs with the plan please see prior note for risks and complications discussed. PLAN: 1. Coronary angiography with possible intervention this afternoon. 2. Continue low-dose Nitropaste, metoprolol, aspirin, Lipitor. Will decrease Lipitor with extremely low LDL. CARINE ALONSO MD Aug 17, 2016 08:24
[2016-08-17] MEDS: PIPER-TAZO 2.25 GM (PMX) 50 ML IVPB SCH ×2 (08:43→20:48)
[2016-08-17] MEDS: SACCHAROMYCES BOULARDII 250 MG CAP PO SCH ×2 (08:45→20:48)
[2016-08-17] MEDS: CALCITRIOL 0.25 MCG CAP PO SCH (08:45)
[2016-08-17] MEDS: ASPIRIN 81 MG TAB PO SCH (08:45)
[2016-08-17] MEDS: MULTIVIT/CA CARB/B CMPLX/FA TAB PO SCH (08:45)
[2016-08-17] MEDS: LORATADINE 10 MG TAB PO SCH (08:45)
[2016-08-17] MEDS: METOPROLOL (XL) 25 MG TAB PO SCH (08:46)
[2016-08-17] MEDS: ASCORBIC ACID 500 MG TAB PO SCH (08:46)
[2016-08-17] MEDS: NITROGLYCERIN 2% 1 GM OINT PKT TD SCH ×2 (08:46→21:00)
[2016-08-17] MEDS: L ACIDOPHIL/B LACTIS/B LONGUM CAPSULE PO SCH ×2 (08:47→20:49)
--- NOTE | 2016-08-17 08:48 | PN ---
Date/Time of Note Date/Time of Note DATE: 08/17/16 TIME: 08:40 Assessment/Plan VTE Prophylaxis VTE Prophylaxis Intervention: other Lines/Catheters IV [facility] Type [facility] Saline Lock Urinary Cath still in place: No Assessment/Plan Chief Complaint/Hosp Course 1. ESRD on maintenance hemodialysis [facility] , he is having hemodialysis now 2. CAD he has had NSTEMI , for coronary angiogram today . 3. IDDM 4. PAD , gangrene of R foot 4th toe . 5. cellulitis of R lower leg 6. postural hypotension . Problems: Subjective 24 Hr Interval Summary Free Text/Dictation He is awake and alert . He is having hemodialysis now . Constitutional: no complaints Cardiovascular: no complaints Gastrointestinal: no complaints Genitourinary: no complaints Neurologic: no complaints Exam/Review of Systems Vital Signs Vitals Vital Signs Date Time Temp Pulse Resp B/P Pulse Ox O2 Delivery O2 Flow Rate FiO2 08/17/16 08:38 78 08/17/16 07:35 14 08/17/16 07:08 98.3 122/68 95 08/14/16 16:26 Room Air Intake and Output 08/16/16 08/16/16 08/17/16 15:00 23:00 07:00 Intake Total 1050 ml 500 ml Balance 1050 ml 500 ml Exam s/p L BKA , R foot 4th toe with gangrene . Constitutional: alert, frail, oriented Respiratory: clear to auscultation, normal air movement Cardiovascular: regular rate and rhythm Gastrointestinal: non-tender, soft Results Result Diagram: 08/17/16 0540 08/17/16 0540 Results 24 hrs Laboratory Tests Test 08/16/16 12:10 08/16/16 17:30 08/16/16 21:23 08/17/16 05:40 Bedside Glucose 93 115 142 White Blood Count 11.7 H Red Blood Count 3.60 L Hemoglobin 10.7 L Hematocrit 33.1 L Mean Corpuscular Volume 91.9 Mean Corpuscular Hemoglobin 29.7 Mean Corpuscular Hemoglobin Concent 32.3 Red Cell Distribution Width 15.7 H Platelet Count 137 L Mean Platelet Volume 11.3 H Neutrophils % 77.1 H Lymphocytes % 12.5 L Monocytes % 7.7 Eosinophils % 2.0 Basophils % 0.3 Nucleated Red Blood Cells % 0.0 Neutrophils # 9.0 H Lymphocytes # 1.5 Monocytes # 0.9 Eosinophils # 0.2 Basophils # 0.0 Nucleated Red Blood Cells # 0.0 Sodium Level 134 L Potassium Level 4.9 Chloride Level 98 Carbon Dioxide Level 22 Anion Gap 19 H Blood Urea Nitrogen 74 H Creatinine 6.32 H Glucose Level 88 Calcium Level 7.9 L Troponin I 3.490 *H Random Vancomycin Level 13.3 Test 08/17/16 08:03 Bedside Glucose 87 Medications Medications Current Medications Acetaminophen/ Hydrocodone Bitart ([place] (5/325)) 1 tab Q6H PRN PO MODERATE PAIN LEVEL 4-6; Start 08/14/16 at 14:30 Zolpidem Tartrate (Ambien) 5 mg QHS PRN PO SLEEP; Start 08/14/16 at 14:30 Acetaminophen (Tylenol Tab) 650 mg Q4 PRN PO PAIN AND OR ELEVATED TEMP; Start 08/14/16 at 14:30 Ascorbic Acid (Vitamin C) 500 mg DAILY PO Last administered on 08/16/16 09:06 ; Admin Dose 500 MG; Start 08/15/16 at 09:00 Aspirin (Aspirin) 81 mg DAILY PO Last administered on 08/16/16 09:05; Admin Dose 81 MG; Start 08/15/16 at 09:00 Bisacodyl (Dulcolax Supp) 10 mg DAILY PRN [place] BM; Start 08/14/16 at 14:30 Calcitriol (Rocaltrol) 0.25 mcg DAILY PO Last administered on 08/16/16 09:07; Admin Dose 0.25 MCG; Start 08/15/16 at 09:00 Insulin Glargine (Lantus) 20 unit QHS SC Last administered on 08/16/16 21:28; Admin Dose 20 UNIT; Start 08/14/16 at 21:00 Loratadine (Claritin) 10 mg DAILY PO Last administered on 08/16/16 09:05; Admin Dose 10 MG; Start 08/15/16 at 09:00 Multivit/Ca Carb/ B Cmplx/FA/Prenat (Sarika-Nahomi) 1 tab DAILY PO Last administered on 08/16/16 09:06; Admin Dose 1 TAB; Start 08/15/16 at 09:00 Saccharomyces Boulardii (Florastor) 500 mg BID PO Last administered on 21:12; Admin Dose 500 MG; Start 08/14/16 at 21:00 Tamsulosin HCl (Flomax) 0.4 mg HS PO Last administered on 08/16/16 21:14; Admin Dose 0.4 MG; Start 08/14/16 at 21:00 Miscellaneous Information 1 ea NOTE XX ; Start 08/14/16 at 15:30 Glucose (Glutose) 15 gm Q15M PRN PO DECREASED GLUCOSE; Start 08/14/16 at 15:30 Glucose (Glutose) 22.5 gm Q15M PRN PO DECREASED GLUCOSE; Start 08/14/16 at 15:30 Dextrose (D50w Syringe) 25 ml Q15M PRN IV DECREASED GLUCOSE; Start 08/14/16 at 15:30 Dextrose (D50w Syringe) 50 ml Q15M PRN IV DECREASED GLUCOSE; Start 08/14/16 at 15:30 Glucagon (Glucagen) 1 mg Q15M PRN IM DECREASED GLUCOSE; Start 08/14/16 at 15:30 Glucose 15 gm 15 gm Q15M PRN BUCCAL DECREASED GLUCOSE; Start 08/14/16 at 15:30 Piperacillin Sod/ Tazobactam Sod (Zosyn 2.25gm/ 50ml (Pmx)) 50 ml @ 100 mls/hr Q12 IVPB Last administered on 08/16/16 21:12; Admin Dose 100 MLS/HR; Start 08/14/16 at 21:00 Metoprolol Succinate (Toprol Xl) 12.5 mg DAILY PO Last administered on 09:06; Admin Dose 12.5 MG; Start 08/15/16 at 16:30 Nitroglycerin (Nitroglycerin 2% Oint) 0.5 inch BID TD Last administered on 08/16 09:08; Admin Dose 0.5 INCH; Start 08/15/16 at 21:00 Diagnostic Test (Pha) (Accu-Chek) 1 ea 02 XX ; Start 08/16/16 at 02:00 Epoetin Nito (Epogen (Esrd)) 10,000 units MoWeFr@17 SC ; Start 08/17/16 at 17:00 Ondansetron HCl (Zofran Inj) 4 mg Q4H PRN IV NAUSEA AND/OR VOMITING Last administered on 6/11/17at 09:23; Admin Dose 4 MG; Start 08/16/16 at 09:30 Ondansetron HCl (Zofran Odt) 4 mg Q6H PRN ODT NAUSEA; Start 08/16/16 at 09:30 Lactobacillus Acidophilus (Florajen3 Capsule) 1 each BID PO ; Start 08/17/16 at 09:00 Atorvastatin Calcium (Lipitor) 10 mg QHS PO ; Start 08/17/16 at 21:00 CELESTE BHATT MD Aug 17, 2016 08:48
[2016-08-17] MEDS ORDERED: VANCOMYCIN 1.5 GM in SOD CHLORIDE 0.9% 250 ML IVPB ONE (11:00)
--- NOTE | 2016-08-17 13:28 | CONS ---
Date/Time of Note Date/Time of Note DATE: 08/17/16 TIME: 13:19 Assessment/Plan Assessment/Plan Additional Assessment/Plan 70 yo male with improved cellulitis of right lower extremity and gangrene of right 4th digit. No urgent need for any surgical intervention at this time. Patient is pending further cardiac work up at this time. Right foot planned surgery will be taken off the schedule at this time. Surgery can be scheduled only if patient is cleared based on Medical/Cardiac status. Daily dressing changes of right foot with betadine recommended. Continuing with IV antibiotics recommended. Consultation Date/Type/Reason Admit Date/Time Aug 14, 2016 at 14:49 Initial Consult Date 08/15/16 Type of Consultation: Infectious Diseases Referring Provider: CELESTE BHATT MD 24 HR Interval Summary Free Text/Dictation Patient seen bedside for follow up of right foot 4th digit gangrene admitted for cellulitis. Patient is doing well with improved cellulitis. He was found to have elevated troponin levels and is pending Angiogram later today. No other acute issues. Exam/Review of Systems Vital Signs Vitals Vital Signs Date Time Temp Pulse Resp B/P Pulse Ox O2 Delivery O2 Flow Rate FiO2 08/17/16 12:10 68 08/17/16 11:06 98.0 19 121/58 97 08/14/16 16:26 Room Air Intake and Output 08/16/16 08/16/16 08/17/16 15:00 23:00 07:00 Intake Total 1050 ml 500 ml Balance 1050 ml 500 ml Exam Right foot 4th digit with dry stable scar. No drainage or maceration noted noted. Right heel ulcer is improving with no acute sign of infection noted. Results Result Diagram: 08/17/16 0540 08/17/16 0540 Results 24 hrs Laboratory Tests Test 08/16/16 17:30 08/16/16 21:23 08/17/16 05:40 08/17/16 08:03 Bedside Glucose 115 142 87 White Blood Count 11.7 H Red Blood Count 3.60 L Hemoglobin 10.7 L Hematocrit 33.1 L Mean Corpuscular Volume 91.9 Mean Corpuscular Hemoglobin 29.7 Mean Corpuscular Hemoglobin Concent 32.3 Red Cell Distribution Width 15.7 H Platelet Count 137 L Mean Platelet Volume 11.3 H Neutrophils % 77.1 H Lymphocytes % 12.5 L Monocytes % 7.7 Eosinophils % 2.0 Basophils % 0.3 Nucleated Red Blood Cells % 0.0 Neutrophils # 9.0 H Lymphocytes # 1.5 Monocytes # 0.9 Eosinophils # 0.2 Basophils # 0.0 Nucleated Red Blood Cells # 0.0 Sodium Level 134 L Potassium Level 4.9 Chloride Level 98 Carbon Dioxide Level 22 Anion Gap 19 H Blood Urea Nitrogen 74 H Creatinine 6.32 H Glucose Level 88 Calcium Level 7.9 L Troponin I 3.490 *H Random Vancomycin Level 13.3 Test 08/17/16 11:48 Bedside Glucose 71 Medications Medications Current Medications Acetaminophen/ Hydrocodone Bitart ([place] (5/325)) 1 tab Q6H PRN PO MODERATE PAIN LEVEL 4-6; Start 08/14/16 at 14:30 Zolpidem Tartrate (Ambien) 5 mg QHS PRN PO SLEEP; Start 08/14/16 at 14:30 Acetaminophen (Tylenol Tab) 650 mg Q4 PRN PO PAIN AND OR ELEVATED TEMP; Start 08/14/16 at 14:30 Ascorbic Acid (Vitamin C) 500 mg DAILY PO Last administered on 08/17/16 08:46 ; Admin Dose 500 MG; Start 08/15/16 at 09:00 Aspirin (Aspirin) 81 mg DAILY PO Last administered on 08/17/16 08:45; Admin Dose 81 MG; Start 08/15/16 at 09:00 Bisacodyl (Dulcolax Supp) [address] BM; Start 08/14/16 at 14:30 Calcitriol (Rocaltrol) 0.25 mcg DAILY PO Last administered on 08/17/16 08:45; Admin Dose 0.25 MCG; Start 08/15/16 at 09:00 Insulin Glargine (Lantus) 20 unit QHS SC Last administered on 08/16/16 21:28; Admin Dose 20 UNIT; Start 08/14/16 at 21:00 Loratadine (Claritin) 10 mg DAILY PO Last administered on 08/17/16 08:45; Admin Dose 10 MG; Start 08/15/16 at 09:00 Multivit/Ca Carb/ B Cmplx/FA/Prenat (Sarika-Nahomi) 1 tab DAILY PO Last administered on 08/17/16 08:45; Admin Dose 1 TAB; Start 08/15/16 at 09:00 Saccharomyces Boulardii (Florastor) 500 mg BID PO Last administered on 08:45; Admin Dose 500 MG; Start 08/14/16 at 21:00 Tamsulosin HCl (Flomax) 0.4 mg HS PO Last administered on 08/16/16 21:14; Admin Dose 0.4 MG; Start 08/14/16 at 21:00 Miscellaneous Information 1 ea NOTE XX ; Start 08/14/16 at 15:30 Glucose (Glutose) 15 gm Q15M PRN PO DECREASED GLUCOSE; Start 08/14/16 at 15:30 Glucose (Glutose) 22.5 gm Q15M PRN PO DECREASED GLUCOSE; Start 08/14/16 at 15:30 Dextrose (D50w Syringe) 25 ml Q15M PRN IV DECREASED GLUCOSE; Start 08/14/16 at 15:30 Dextrose (D50w Syringe) 50 ml Q15M PRN IV DECREASED GLUCOSE; Start 08/14/16 at 15:30 Glucagon (Glucagen) 1 mg Q15M PRN IM DECREASED GLUCOSE; Start 08/14/16 at 15:30 Glucose 15 gm 15 gm Q15M PRN BUCCAL DECREASED GLUCOSE; Start 08/14/16 at 15:30 Piperacillin Sod/ Tazobactam Sod (Zosyn 2.25gm/ 50ml (Pmx)) 50 ml @ 100 mls/hr Q12 IVPB Last administered on 08/17/16 08:43; Admin Dose 100 MLS/HR; Start 08/14/16 at 21:00 Metoprolol Succinate (Toprol Xl) 12.5 mg DAILY PO Last administered on 09:06; Admin Dose 12.5 MG; Start 08/15/16 at 16:30 Nitroglycerin (Nitroglycerin 2% Oint) 0.5 inch BID TD Last administered on 08/16 09:08; Admin Dose 0.5 INCH; Start 08/15/16 at 21:00 Diagnostic Test (Pha) (Accu-Chek) 1 ea 02 XX ; Start 08/16/16 at 02:00 Epoetin Nito (Epogen (Esrd)) 10,000 units MoWeFr@17 SC ; Start 08/17/16 at 17:00 Ondansetron HCl (Zofran Inj) 4 mg Q4H PRN IV NAUSEA AND/OR VOMITING Last administered on 08/16/16 09:23; Admin Dose 4 MG; Start 08/16/16 at 09:30 Ondansetron HCl (Zofran Odt) 4 mg Q6H PRN ODT NAUSEA; Start 08/16/16 at 09:30 Lactobacillus Acidophilus (Florajen3 Capsule) 1 each BID PO ; Start 08/17/16 at 09:00 Atorvastatin Calcium 10 mg 10 mg QHS PO ; Start 08/17/16 at 21:00 Vancomycin HCl/ Sodium Chloride (Vancocin/NS) 250 ml @ 83.333 mls/ hr ONCE ONCE IVPB Last administered on 08/17/16 11:14; Admin Dose 83.333 MLS/HR; Start 08/17/16 at 11:00; Stop 08/17/16 at 13:59 CORIE ROSA DPM Aug 17, 2016 13:28
--- NOTE | 2016-08-17 14:01 | RADRPT ---
Vent Rate: 73 bpm RR Interval: 0 msec OR Interval: 164 msec QRS Duration: 110 msec QT Interval: 406 msec QTC Interval: 447 msec P-R-T [place]: 74 - 86 - 72 degrees Normal sinus rhythm Incomplete left bundle branch block Borderline ECG Electronically Signed By: Avery Trinidad [id number]
[2016-08-17] MEDS ORDERED: IODIXANOL LOCM 100 ML BTL ONE ×3 (15:55→18:14)
[2016-08-17] MEDS ORDERED: LIDOCAINE 1% (MDV) 20 ML INJ ONE (15:55)
[2016-08-17] MEDS ORDERED: FENTAnyl 50 MCG/ML VIAL ONE (16:03)
[2016-08-17] MEDS ORDERED: MIDAZOLAM 1 MG/ML 2 ML INJ ONE (16:03)
[2016-08-17] MEDS: EPOETIN 10000 UNITS/1 ML INJ (ESRD) SC SCH (17:00)
[2016-08-17] MEDS ORDERED: SOD CHLORIDE 0.9% 500 ML ONE (17:34)
[2016-08-17] MEDS ORDERED: IODIXANOL LOCM 50 ML BTL ONE (17:46)
[2016-08-17] MEDS ORDERED: HEPARIN 1000 UNITS/ML 10 ML INJ ONE (17:46)
[2016-08-17] MEDS ORDERED: NITROGLYCERIN (IC) 100 MCG/ML INJ ONE (17:46)
[2016-08-17] MEDS ORDERED: EPTIFIBATIDE 10 ML ONE (17:50)
[2016-08-17] MEDS ORDERED: CLOPIDOGREL 300 MG TAB ONE (17:52)
--- NOTE | 2016-08-17 19:04 | QN ---
Documentation Comment Brief Cardiac Cath Note - see official report for details Coronary angiogram: LM - mild proximal disease LAD - mild proximal disease, 80% lesion after D1, S1 medium sized, D1 - large w / mild disease, 90% before large S1, mild distal disease LCfx - mild proximal disease, 100% mid-occlusion RCA - dominant, mid-40%, 50-60% before PDA bifurcation, LVEB - 40% proximal, small, PDA - medium w/ mild disease Intervention: 1. LAD 80% early mid-lesion - Synergy SYDNI 2.5 x 16mm (post-dilated to 2.80), excellent angiographic result 2. LAD 90% mid - Synergy SYDNI 2.25 x 12mm (post-dilated to 2.30mm), excellent angiographic result Impression: 1. Severe early mid-LAD and mid-LAD lesions (80%, 90%) that were successfully treated with Synergy SYDNI (2.5 x 16mm, 2.25 x 12mm) with excellent angiographic result. 2. LM has no severe disease. Circumflex has mid-100% chronic occlusion. RCA has moderate disease in mid and distal portions. Plan - aspirin 81mg daily for life - clopidogrel 75mg daily for 1 year - bedrest for 6 hrs (after sheath removal) - maximize medical therapy - HD per renal Complications - none EBL ~ 10 ml Specimens removed - none BAM PADGETT Aug 17, 2016 19:04
[2016-08-17] MEDS: TAMSULOSIN (SR) 0.4 MG CAP PO SCH (20:48)
[2016-08-17] MEDS: ATORVASTATIN 10 MG TAB PO SCH (20:48)
[2016-08-17] MEDS: INSULIN GLARGINE [LANtus] 3 ML PEN SC SCH (21:00)
--- NOTE | 2016-08-17 21:12 | OPR ---
DATE OF OPERATION: PROCEDURES PERFORMED: Left heart catheterization, coronary angiogram, PCI of the mid LAD lesions with 2 Synergy drug-eluting stents, left common femoral angiogram. [employer]: Jayson Medley MD PROCEDURE INDICATION: This is a 70-year-old male with end-stage renal disease on hemodialysis, peripheral arterial disease, status post left BKA and right femoral-tibial bypass, type 2 diabetes, mild aortic stenosis, hypertension, hyperlipidemia who presented with right toe gangrene and found to have an NSTEMI. Cardiac catheterization requested by Dr. Maldonado. PROCEDURE NARRATIVE: Informed consent obtained and documented. Area above left groin prepped and draped in sterile fashion. Using ultrasound guidance and a micropuncture kit, a 6-Beninese sheath was placed in the left common femoral artery. Femoral angiogram confirmed proper placement without dissection or perforation. A 6-Beninese FL4 was advanced to the aortic root and engaged the left coronary ostium. Left coronary angiography was done in multiple views. Catheter was then exchanged for a 6-Beninese FR4, which was engaged in the right coronary ostium. Right coronary angiography was done in multiple views. The FR4 was advanced across the aortic valve into the LV and LV pressure was taken and a pullback was done. Catheter was then removed. After review of the films, decision was made to do PCI in the early mid LAD and then the subsequent LAD lesions, which were both severe. An XB 3.5 guide was advanced to the aortic root and engaged in the left coronary ostium. Heparin 5600 units was given. ACT was greater than 3000. Integrilin bolus was given. A short 0.014 Whisper wire was advanced down the LAD into the distal LAD. The mid LAD lesion was dilated with a Euphora 2.0 x 10 mm balloon at 12 atmospheres for 25 seconds x1. Then, it was used to dilate the early mid LAD lesion at 16 atmospheres x20 seconds for 2 inflations. Then, a Synergy drug-eluting stent 2.25 x 12 mm was deployed in the mid LAD at 14 atmospheres for 25 seconds. There was good angiographic result. Then, a Synergy drug-eluting stent 2.5 x 16 mm was deployed in the proximal LAD at 16 atmospheres for 30 seconds. There was also good angiographic result. The proximal LAD was postdilated with an Emerge 2.75 x 12 mm balloon inflated at 18 atmospheres for 22 seconds. This was to a diameter of 2.8 mm. Then, a Euphora 2.25 x 8 mm noncompliant balloon was advanced to the mid LAD stent at 16 atmospheres for 20 seconds and postdilated the stent. Angiogram revealed an excellent angiographic result at both stent sites with no residual stenosis, no evidence of dissection or perforation. Wire out. Angiogram also confirmed the excellent angiographic result with JOSE 3 flow down the vessel and no residual stenosis, no evidence of dissection or perforation. Final ACT was 289. The guide catheter was removed. The sheath was sutured in place and will be removed once ACT is less than 150. Plavix 600 mg was given x1. HEMODYNAMICS: The LV pressure was 103/20. Aortic pressure was 99/65 with a mean of 81. Heart rate was 99. CORONARY ANGIOGRAM: 1. Left main: Mild disease approximately 10%. 2. LAD: Mild proximal disease. Moderately calcified mid LAD with 80% lesion after the first large diagonal. First diagonal is large with mild disease. Then there is a 90% lesion before a large second septal. The first septal was medium size. Second septal was large. Distally, the LAD had mild disease. 3. Left circumflex: Mild proximal disease, 100% mid occlusion. 4. RCA: Dominant. Mid 40% lesion, 50% to 60% distal lesion before the PDA bifurcation. The PDA was medium size, mild disease. LV extension branch 40% proximally and is small. 5. Left common femoral: Mild 30% to 40% disease above the bifurcation of the SFA and profunda. INTERVENTION: 1. Early mid LAD 80% lesion treated with a Synergy drug-eluting stent 2.5 x 16 mm and postdilated 2.80. There is excellent angiographic result with no residual stenosis. 2. Mid LAD 90% lesion treated with a Synergy drug-eluting stent 2.25 x 12 mm postdilated to 2.30. Excellent angiographic result. IMPRESSION: 1. Severe early mid left anterior descending and mid left anterior descending lesions, 80% and 90% respectively, that were successfully treated with 2 Synergy drug-eluting stents ( 2.5 x 16 mm postdilated to 2.80 and 2.25 x 12 mm) . There was excellent angiographic result with no residual stenosis and JOSE 3 flow down the vessel. 2. Left main has no severe disease. Left circumflex has a mid 100% chronic total occlusion. Right coronary artery has moderate disease in the mid and distal portions. PLAN: Aspirin 81 mg daily for life. Plavix 75 mg daily for 1 year. Bedrest for 6 hours after sheath removal. Maximize medical therapy. Hemodialysis per renal. COMPLICATIONS: None. ESTIMATED BLOOD LOSS: 10 mL. SPECIMENS REMOVED: None. Dictated By: JAYSON MEDLEY MD /NTS Conf#: [id number] DID#: [id number] CC: CELESTE BHATT MD;*EndCC* MTDD
[2016-08-18] VITALS (25 sets, daily range): BP systolic 93–131; BP diastolic 54–90; PULSE 92–121; RESP 10–24
[2016-08-18] MEDS: ACCU-CHEK XX SCH (02:00)
[2016-08-18] MEDS ORDERED: ATROPINE 1 MG/10 ML SYRINGE ONE (02:58)
--- NOTE | 2016-08-18 06:24 | CONS ---
Date/Time of Note Date/Time of Note DATE: 08/18/16 TIME: 06:21 Assessment/Plan Assessment/Plan Chief Complaint/Hosp Course 1) R 4th toe gangrene and RLE cellulitis awaits angiography and amputation can likely switch to po antibiotics post amputation continue with vanco/zosyn at present 08/18 - stable on vanco/zosyn, s/p cardiac stenting pt awaits cardiac clearance prior to proceeding with definitive surgery to RLE 2) CoNS in blood only one in four bottles, likely this represents contamination and no need for treatment 3) ESRD to get HD today 4)DM 5) diarrhea stools studies have been negative change probiotic to include multiple types of bacteria Problems: Consultation Date/Type/Reason Admit Date/Time Aug 14, 2016 at 14:49 Initial Consult Date 08/15/16 Type of Consultation: Infectious Diseases Referring Provider: CELESTE BHATT MD 24 HR Interval Summary Free Text/Dictation pt tx to ICU post angiography and cardiac stenting no N, V, D, SOB, CP Exam/Review of Systems Vital Signs Vitals Vital Signs Date Time Temp Pulse Resp B/P Pulse Ox O2 Delivery O2 Flow Rate FiO2 08/18/16 05:00 106 16 106/64 97 Nasal Cannula 2.0 08/18/16 04:00 97.8 Intake and Output 08/17/16 08/17/16 08/18/16 15:00 23:00 07:00 Intake Total 400 ml 50 ml 100 ml Output Total 3600 ml 80 ml Balance -3200 ml 50 ml 20 ml Exam Constitutional: alert Head: normocephalic Eyes: nl sclera ENMT: mucosa pink and moist Respiratory: clear to auscultation Cardiovascular: regular rate and rhythm Gastrointestinal: non-tender, soft Extremities: other (R foot is bandaged) Results Result Diagram: 08/17/16 0540 08/17/16 0540 Results 24 hrs Laboratory Tests Test 08/17/16 08:03 08/17/16 11:48 08/17/16 21:12 08/17/16 21:37 Bedside Glucose 87 71 46 *L 141 Test 08/17/16 22:27 Bedside Glucose 143 Medications Medications Current Medications Acetaminophen/ Hydrocodone Bitart ([place] (5/325)) 1 tab Q6H PRN PO MODERATE PAIN LEVEL 4-6; Start 08/14/16 at 14:30 Zolpidem Tartrate (Ambien) 5 mg QHS PRN PO SLEEP; Start 08/14/16 at 14:30 Acetaminophen (Tylenol Tab) 650 mg Q4 PRN PO PAIN AND OR ELEVATED TEMP; Start 08/14/16 at 14:30 Ascorbic Acid (Vitamin C) 500 mg DAILY PO Last administered on 08/17/16 08:46 ; Admin Dose 500 MG; Start 08/15/16 at 09:00 Aspirin (Aspirin) 81 mg DAILY PO Last administered on 08/17/16 08:45; Admin Dose 81 MG; Start 08/15/16 at 09:00 Bisacodyl (Dulcolax Supp) 10 mg DAILY PRN [place] BM; Start 08/14/16 at 14:30 Calcitriol (Rocaltrol) 0.25 mcg DAILY PO Last administered on 08/17/16 08:45; Admin Dose 0.25 MCG; Start 08/15/16 at 09:00 Insulin Glargine (Lantus) 20 unit QHS SC Last administered on 08/16/16 21:28; Admin Dose 20 UNIT; Start 08/14/16 at 21:00 Loratadine (Claritin) 10 mg DAILY PO Last administered on 08/17/16 08:45; Admin Dose 10 MG; Start 08/15/16 at 09:00 Multivit/Ca Carb/ B Cmplx/FA/Prenat (Sarika-Nahomi) 1 tab DAILY PO Last administered on 08/17/16 08:45; Admin Dose 1 TAB; Start 08/15/16 at 09:00 Saccharomyces Boulardii (Florastor) 500 mg BID PO Last administered on 20:48; Admin Dose 500 MG; Start 08/14/16 at 21:00 Tamsulosin HCl (Flomax) 0.4 mg HS PO Last administered on 08/17/16 20:48; Admin Dose 0.4 MG; Start 08/14/16 at 21:00 Miscellaneous Information 1 ea NOTE XX ; Start 08/14/16 at 15:30 Glucose (Glutose) 15 gm Q15M PRN PO DECREASED GLUCOSE; Start 08/14/16 at 15:30 Glucose (Glutose) 22.5 gm Q15M PRN PO DECREASED GLUCOSE; Start 08/14/16 at 15:30 Dextrose (D50w Syringe) 25 ml Q15M PRN IV DECREASED GLUCOSE; Start 08/14/16 at 15:30 Dextrose (D50w Syringe) 50 ml Q15M PRN IV DECREASED GLUCOSE Last administered on 08/17/16 21:14; Admin Dose 50 ML; Start 08/14/16 at 15:30 Glucagon (Glucagen) 1 mg Q15M PRN IM DECREASED GLUCOSE; Start 08/14/16 at 15:30 Glucose 15 gm 15 gm Q15M PRN BUCCAL DECREASED GLUCOSE; Start 08/14/16 at 15:30 Piperacillin Sod/ Tazobactam Sod (Zosyn 2.25gm/ 50ml (Pmx)) 50 ml @ 100 mls/hr Q12 IVPB Last administered on 08/17/16 20:48; Admin Dose 100 MLS/HR; Start 08/14/16 at 21:00 Metoprolol Succinate (Toprol Xl) 12.5 mg DAILY PO Last administered on 09:06; Admin Dose 12.5 MG; Start 08/15/16 at 16:30 Nitroglycerin (Nitroglycerin 2% Oint) 0.5 inch BID TD Last administered on 08/16 09:08; Admin Dose 0.5 INCH; Start 08/15/16 at 21:00 Diagnostic Test (Pha) (Accu-Chek) 1 ea 02 XX ; Start 08/16/16 at 02:00 Epoetin Nito (Epogen (Esrd)) 10,000 units MoWeFr@17 SC ; Start 08/17/16 at 17:00 Ondansetron HCl (Zofran Inj) 4 mg Q4H PRN IV NAUSEA AND/OR VOMITING Last administered on 08/16/16 09:23; Admin Dose 4 MG; Start 08/16/16 at 09:30 Ondansetron HCl (Zofran Odt) 4 mg Q6H PRN ODT NAUSEA; Start 08/16/16 at 09:30 Lactobacillus Acidophilus (Florajen3 Capsule) 1 each BID PO ; Start 08/17/16 at 09:00 Atorvastatin Calcium (Lipitor) 10 mg QHS PO Last administered on 08/17/16 20: 48; Admin Dose 10 MG; Start 08/17/16 at 21:00 Clopidogrel Bisulfate (plaVIX) 75 mg DAILY PO ; Start 08/18/16 at 09:00 PEDRO PATRICK MD Aug 18, 2016 06:24
[2016-08-18 06:38] LABS: ADD SCAN DIFF NO
[2016-08-18 06:51] LABS: BASOPHILS % 0.2 % (0.0-2.0); EOSINOPHILS # 0.2 10^3/ul (0.0-0.5); EOSINOPHILS % 2.3 % (0.0-7.0); HEMATOCRIT 34.5 % (42.0-52.0); HEMOGLOBIN 11.2 g/dl (14.0-18.0); LYMPHOCYTES # 0.9 10^3/ul (0.8-2.9); LYMPHOCYTES % 9.4 % (15.0-51.0); MEAN CORPUSCULAR HEMOGLOBIN 29.6 pg (29.0-33.0); MEAN CORPUSCULAR HGB CONC 32.5 g/dl (32.0-37.0); MEAN CORPUSCULAR VOLUME 91.3 fl (82.0-101.0); MEAN PLATELET VOLUME 11.4 fl (7.4-10.4); MONOCYTE # 0.7 10^3/ul (0.3-0.9); MONOCYTES % 7.2 % (0.0-11.0); NEUTROPHILS % 80.3 % (39.0-77.0); PLATELET COUNT 150 10^3/UL (140-415); RED BLOOD COUNT 3.78 10^6/ul (4.70-6.10); RED CELL DISTRIBUTION WIDTH 15.6 % (11.5-14.5); WHITE BLOOD COUNT 9.9 10^3/ul (4.8-10.8)
[2016-08-18 07:28] LABS: CALCIUM 7.4 mg/dl (8.4-10.2); CREATININE 5.15 mg/dl (0.61-1.24)
[2016-08-18 07:32] LABS: TROPONIN-I 3.31 ng/ml (0.00-0.12)
[2016-08-18] MEDS: INSULIN ASPART [NOVOLOG] 3 ML PEN SC SCH ×4 (09:02→21:35)
[2016-08-18] MEDS: PIPER-TAZO 2.25 GM (PMX) 50 ML IVPB SCH ×2 (09:07→21:31)
[2016-08-18] MEDS: CLOPIDOGREL 75 MG TAB PO SCH (09:09)
[2016-08-18] MEDS: CALCIUM ACETATE 667 MG CAP PO SCH ×3 (09:09→17:47)
[2016-08-18] MEDS: MULTIVIT/CA CARB/B CMPLX/FA TAB PO SCH (09:09)
[2016-08-18] MEDS: ASCORBIC ACID 500 MG TAB PO SCH (09:09)
[2016-08-18] MEDS: ASPIRIN 81 MG TAB PO SCH (09:09)
[2016-08-18] MEDS: LORATADINE 10 MG TAB PO SCH (09:09)
[2016-08-18] MEDS: CALCITRIOL 0.25 MCG CAP PO SCH (09:09)
[2016-08-18] MEDS: METOPROLOL 25 MG TAB PO SCH ×2 (09:09→21:31)
[2016-08-18] MEDS: CREON (24K-76K-120K) 1 CAP PO SCH ×3 (09:10→17:47)
[2016-08-18] MEDS: SACCHAROMYCES BOULARDII 250 MG CAP PO SCH ×2 (09:10→21:30)
[2016-08-18] MEDS: L ACIDOPHIL/B LACTIS/B LONGUM CAPSULE PO SCH ×2 (09:11→21:30)
--- NOTE | 2016-08-18 10:04 | CONS ---
Date/Time of Note Date/Time of Note DATE: 08/18/16 TIME: 09:58 Assessment/Plan Assessment/Plan Additional Assessment/Plan # Non-STEMI s/p PCI to LAD with SYDNI x 2 # Gangrene # Atrial flutter - new onset # Chronic renal failure on dialysis. # Peripheral vascular disease status post left BKA, status post right fem-tib bypass, now with right toe gangrene. # Orthostatic hypotension. # Anemia of chronic disease. # Moderate aortic stenosis. # Hyperlipidemiacontrolled. # Type 2 diabetes. # Mild aortic regurgitation on echocardiography. # Benign prostatic hypertrophy # Right toe gangrene >> Ok to proceed with debridement >> eventual anticoagulation given atrial flutter >> Digoxin IV x 1 >> Heparin drip vs lovenox >> Continue on cardiac meds >> will likely need plavix x 1 year, ASA x 1 month, Coumadin vs DOAC however given HD this is complicated Consultation Date/Type/Reason Admit Date/Time Aug 14, 2016 at 14:49 Initial Consult Date 08/15/16 Type of Consultation: Cardiology Referring Provider: CELESTE BHATT MD 24 HR Interval Summary Free Text/Dictation Overall has been doing well. He had PCI to LAD yday. No CP. He has no foot pain. No SOB Constitutional: no complaints Exam/Review of Systems Vital Signs Vitals Vital Signs Date Time Temp Pulse Resp B/P Pulse Ox O2 Delivery O2 Flow Rate FiO2 08/18/16 06:00 106 20 93/74 96 Nasal Cannula 2.0 08/18/16 04:00 97.8 Intake and Output 08/17/16 08/17/16 08/18/16 15:00 23:00 07:00 Intake Total 400 ml 50 ml 100 ml Output Total 3600 ml 80 ml Balance -3200 ml 50 ml 20 ml Exam Constitutional: alert, oriented Psych: no complaints Head: normocephalic Eyes: nl conjunctiva ENMT: nl external ears & nose Neck: supple Respiratory: clear to auscultation Cardiovascular: irregular rhythm, other (tachy) Gastrointestinal: soft Musculoskeletal: nl extremities to inspection Results Result Diagram: 08/18/16 0630 08/18/16 0630 Results 24 hrs Laboratory Tests Test 08/17/16 11:48 08/17/16 21:12 08/17/16 21:37 08/17/16 22:27 Bedside Glucose 71 46 *L 141 143 Test 08/18/16 06:26 08/18/16 06:30 08/18/16 06:41 08/18/16 09:01 Bedside Glucose 74 84 84 White Blood Count 9.9 Red Blood Count 3.78 L Hemoglobin 11.2 L Hematocrit 34.5 L Mean Corpuscular Volume 91.3 Mean Corpuscular Hemoglobin 29.6 Mean Corpuscular Hemoglobin Concent 32.5 Red Cell Distribution Width 15.6 H Platelet Count 150 Mean Platelet Volume 11.4 H Neutrophils % 80.3 H Lymphocytes % 9.4 L Monocytes % 7.2 Eosinophils % 2.3 Basophils % 0.2 Nucleated Red Blood Cells % 0.0 Neutrophils # 8.0 H Lymphocytes # 0.9 Monocytes # 0.7 Eosinophils # 0.2 Basophils # 0.0 Nucleated Red Blood Cells # 0.0 Sodium Level 134 L Potassium Level 4.0 Chloride Level 96 L Carbon Dioxide Level 25 Anion Gap 17 H Blood Urea Nitrogen 50 H Creatinine 5.15 H Glucose Level 61 #L Calcium Level 7.4 L Troponin I 3.310 *H Medications Medications Current Medications Acetaminophen/ Hydrocodone Bitart ([place] (5/325)) 1 tab Q6H PRN PO MODERATE PAIN LEVEL 4-6; Start 08/14/16 at 14:30 Zolpidem Tartrate (Ambien) 5 mg QHS PRN PO SLEEP; Start 08/14/16 at 14:30 Acetaminophen (Tylenol Tab) 650 mg Q4 PRN PO PAIN AND OR ELEVATED TEMP; Start 08/14/16 at 14:30 Ascorbic Acid (Vitamin C) 500 mg DAILY PO Last administered on 08/18/16 09:09 ; Admin Dose 500 MG; Start 08/15/16 at 09:00 Aspirin (Aspirin) 81 mg DAILY PO Last administered on 08/18/16 09:09; Admin Dose 81 MG; Start 08/15/16 at 09:00 Bisacodyl (Dulcolax Supp) 10 mg DAILY PRN [place] BM; Start 08/14/16 at 14:30 Calcitriol (Rocaltrol) 0.25 mcg DAILY PO Last administered on 08/18/16 09:09; Admin Dose 0.25 MCG; Start 08/15/16 at 09:00 Insulin Glargine (Lantus) 20 unit QHS SC Last administered on 08/16/16 21:28; Admin Dose 20 UNIT; Start 08/14/16 at 21:00 Loratadine (Claritin) 10 mg DAILY PO Last administered on 08/18/16 09:09; Admin Dose 10 MG; Start 08/15/16 at 09:00 Multivit/Ca Carb/ B Cmplx/FA/Prenat (Sarika-Nahomi) 1 tab DAILY PO Last administered on 08/18/16 09:09; Admin Dose 1 TAB; Start 08/15/16 at 09:00 Saccharomyces Boulardii (Florastor) 500 mg BID PO Last administered on 09:10; Admin Dose 500 MG; Start 08/14/16 at 21:00 Tamsulosin HCl (Flomax) 0.4 mg HS PO Last administered on 08/17/16 20:48; Admin Dose 0.4 MG; Start 08/14/16 at 21:00 Miscellaneous Information 1 ea NOTE XX ; Start 08/14/16 at 15:30 Glucose (Glutose) 15 gm Q15M PRN PO DECREASED GLUCOSE; Start 08/14/16 at 15:30 Glucose (Glutose) 22.5 gm Q15M PRN PO DECREASED GLUCOSE; Start 08/14/16 at 15:30 Dextrose (D50w Syringe) 25 ml Q15M PRN IV DECREASED GLUCOSE; Start 08/14/16 at 15:30 Dextrose (D50w Syringe) 50 ml Q15M PRN IV DECREASED GLUCOSE Last administered on 08/17/16 21:14; Admin Dose 50 ML; Start 08/14/16 at 15:30 Glucagon (Glucagen) 1 mg Q15M PRN IM DECREASED GLUCOSE; Start 08/14/16 at 15:30 Glucose 15 gm 15 gm Q15M PRN BUCCAL DECREASED GLUCOSE; Start 08/14/16 at 15:30 Piperacillin Sod/ Tazobactam Sod (Zosyn 2.25gm/ 50ml (Pmx)) 50 ml @ 100 mls/hr Q12 IVPB Last administered on 08/18/16 09:07; Admin Dose 100 MLS/HR; Start 08/14/16 at 21:00 Nitroglycerin (Nitroglycerin 2% Oint) 0.5 inch BID TD Last administered on 08/16 09:08; Admin Dose 0.5 INCH; Start 08/15/16 at 21:00 Diagnostic Test (Pha) (Accu-Chek) 1 ea 02 XX ; Start 08/16/16 at 02:00 Epoetin Nito (Epogen (Esrd)) 10,000 units MoWeFr@17 SC ; Start 08/17/16 at 17:00 Ondansetron HCl (Zofran Inj) 4 mg Q4H PRN IV NAUSEA AND/OR VOMITING Last administered on 08/16/16 09:23; Admin Dose 4 MG; Start 08/16/16 at 09:30 Ondansetron HCl (Zofran Odt) 4 mg Q6H PRN ODT NAUSEA; Start 08/16/16 at 09:30 Lactobacillus Acidophilus (Florajen3 Capsule) 1 each BID PO Last administered on 08/18/16 09:11; Admin Dose 1 EACH; Start 08/17/16 at 09:00 Atorvastatin Calcium (Lipitor) 10 mg QHS PO Last administered on 08/17/16 20: 48; Admin Dose 10 MG; Start 08/17/16 at 21:00 Clopidogrel Bisulfate (plaVIX) 75 mg DAILY PO Last administered on 08/18/16 09 :09; Admin Dose 75 MG; Start 08/18/16 at 09:00 Metoprolol Tartrate (Lopressor) 25 mg BID PO Last administered on 08/18/16 09: 09; Admin Dose 25 MG; Start 08/18/16 at 09:00 DUONG METCALF MD Aug 18, 2016 10:04
[2016-08-18] MEDS ORDERED: DIGOXIN 500 MCG INJ IV ONE (10:30)
--- NOTE | 2016-08-18 15:14 | CONS ---
Date/Time of Note Date/Time of Note DATE: 08/18/16 TIME: 15:07 Assessment/Plan Assessment/Plan Chief Complaint/Hosp Course 1. ESRD on maintenance hemodialysis M W F , I will order dialysis for tomorrow. 2. CAD he has had NSTEMI , he had a coronary angiogram yesterday and had 2 stents placed in the LAD. He is now on aspirin and Plavix. 3. IDDM , his blood sugars have been low. I will decrease his dose of Lantus insulin. 4. PAD , gangrene of R foot 4th toe . I will speak to Dr. Rubalcava about the possibility of doing surgery in the next couple of days. 5. cellulitis of R lower leg , improving on antibiotics. 6. postural hypotension . 7. Atrial flutter, new onset 8. Depression, this patient is now depressed because of his overwhelming medical condition. He is not usually a depressed person. I did speak to him about the possibility of seeing either a psychologist or psychiatrist. He refuses. I also asked him about taking an antidepressant. He refuses. I understand his situation. We will continue to treat him as we are. doing Problems: Consultation Date/Type/Reason Admit Date/Time Aug 14, 2016 at 14:49 Initial Consult Date 08/15/16 Type of Consultation: Cardiology Referring Provider: CELESTE BHATT MD 24 HR Interval Summary Free Text/Dictation He was just transferred from the ICU to telemetry. He is awake and alert. He is rather depressed about his current situation. He had a coronary angiogram yesterday and had 2 stents placed. He is now on Plavix and aspirin. He also went into atrial flutter last night and may need the addition of another anticoagulant. Constitutional: no complaints Exam/Review of Systems Vital Signs Vitals Vital Signs Date Time Temp Pulse Resp B/P Pulse Ox O2 Delivery O2 Flow Rate FiO2 08/18/16 13:37 98.5 91 18 131/90 99 08/18/16 08:00 Nasal Cannula 2.0 Intake and Output 08/17/16 08/17/16 08/18/16 15:00 23:00 07:00 Intake Total 400 ml 50 ml 100 ml Output Total 3600 ml 80 ml Balance -3200 ml 50 ml 20 ml Exam Lower extremities, he is status post a left below the knee amputation because of gangrene of his foot. He has a right lower leg cellulitis which is improving. He has gangrene of the right fourth toe. Constitutional: alert, oriented Psych: depression Head: normocephalic Neck: supple Respiratory: clear to auscultation, normal air movement Cardiovascular: irregular rhythm Gastrointestinal: soft Results Result Diagram: 08/18/16 0630 08/18/16 0630 Results 24 hrs Laboratory Tests Test 08/17/16 21:12 08/17/16 21:37 08/17/16 22:27 08/18/16 06:26 Bedside Glucose 46 *L 141 143 74 Test 08/18/16 06:30 08/18/16 06:41 08/18/16 09:01 08/18/16 12:24 White Blood Count 9.9 Red Blood Count 3.78 L Hemoglobin 11.2 L Hematocrit 34.5 L Mean Corpuscular Volume 91.3 Mean Corpuscular Hemoglobin 29.6 Mean Corpuscular Hemoglobin Concent 32.5 Red Cell Distribution Width 15.6 H Platelet Count 150 Mean Platelet Volume 11.4 H Neutrophils % 80.3 H Lymphocytes % 9.4 L Monocytes % 7.2 Eosinophils % 2.3 Basophils % 0.2 Nucleated Red Blood Cells % 0.0 Neutrophils # 8.0 H Lymphocytes # 0.9 Monocytes # 0.7 Eosinophils # 0.2 Basophils # 0.0 Nucleated Red Blood Cells # 0.0 Sodium Level 134 L Potassium Level 4.0 Chloride Level 96 L Carbon Dioxide Level 25 Anion Gap 17 H Blood Urea Nitrogen 50 H Creatinine 5.15 H Glucose Level 61 #L Calcium Level 7.4 L Troponin I 3.310 *H Bedside Glucose 84 84 137 Medications Medications Current Medications Acetaminophen/ Hydrocodone Bitart ([place] (5/325)) 1 tab Q6H PRN PO MODERATE PAIN LEVEL 4-6; Start 08/14/16 at 14:30 Zolpidem Tartrate (Ambien) 5 mg QHS PRN PO SLEEP; Start 08/14/16 at 14:30 Acetaminophen (Tylenol Tab) 650 mg Q4 PRN PO PAIN AND OR ELEVATED TEMP; Start 08/14/16 at 14:30 Ascorbic Acid (Vitamin C) 500 mg DAILY PO Last administered on 08/18/16t 09:09 ; Admin Dose 500 MG; Start 08/15/16 at 09:00 Aspirin (Aspirin) 81 mg DAILY PO Last administered on 08/18/16 09:09; Admin Dose 81 MG; Start 08/15/16 at 09:00 Bisacodyl (Dulcolax Supp) 10 mg DAILY PRN [place] BM; Start 08/14/16 at 14:30 Calcitriol (Rocaltrol) 0.25 mcg DAILY PO Last administered on 08/18/16 09:09; Admin Dose 0.25 MCG; Start 08/15/16 at 09:00 Loratadine (Claritin) 10 mg DAILY PO Last administered on 08/18/16 09:09; Admin Dose 10 MG; Start 08/15/16 at 09:00 Multivit/Ca Carb/ B Cmplx/FA/Prenat (Sarika-Nahomi) 1 tab DAILY PO Last administered on 08/18/16 09:09; Admin Dose 1 TAB; Start 08/15/16 at 09:00 Saccharomyces Boulardii (Florastor) 500 mg BID PO Last administered on 09:10; Admin Dose 500 MG; Start 08/14/16 at 21:00 Tamsulosin HCl (Flomax) 0.4 mg HS PO Last administered on 08/17/16 20:48; Admin Dose 0.4 MG; Start 08/14/16 at 21:00 Miscellaneous Information 1 ea NOTE XX ; Start 08/14/16 at 15:30 Glucose (Glutose) 15 gm Q15M PRN PO DECREASED GLUCOSE; Start 08/14/16 at 15:30 Glucose (Glutose) 22.5 gm Q15M PRN PO DECREASED GLUCOSE; Start 08/14/16 at 15:30 Dextrose (D50w Syringe) 25 ml Q15M PRN IV DECREASED GLUCOSE; Start 08/14/16 at 15:30 Dextrose (D50w Syringe) 50 ml Q15M PRN IV DECREASED GLUCOSE Last administered on 08/17/16 21:14; Admin Dose 50 ML; Start 08/14/16 at 15:30 Glucagon (Glucagen) 1 mg Q15M PRN IM DECREASED GLUCOSE; Start 08/14/16 at 15:30 Glucose 15 gm 15 gm Q15M PRN BUCCAL DECREASED GLUCOSE; Start 08/14/16 at 15:30 Piperacillin Sod/ Tazobactam Sod (Zosyn 2.25gm/ 50ml (Pmx)) 50 ml @ 100 mls/hr Q12 IVPB Last administered on 08/18/16 09:07; Admin Dose 100 MLS/HR; Start 08/14/16 at 21:00 Diagnostic Test (Pha) (Accu-Chek) 1 ea 02 XX ; Start 08/16/16 at 02:00 Epoetin Nito (Epogen (Esrd)) 10,000 units MoWeFr@17 SC ; Start 08/17/16 at 17:00 Ondansetron HCl (Zofran Inj) 4 mg Q4H PRN IV NAUSEA AND/OR VOMITING Last administered on 08/16/16 09:23; Admin Dose 4 MG; Start 08/16/16 at 09:30 Ondansetron HCl (Zofran Odt) 4 mg Q6H PRN ODT NAUSEA; Start 08/16/16 at 09:30 Lactobacillus Acidophilus (Florajen3 Capsule) 1 each BID PO Last administered on 08/18/16 09:11; Admin Dose 1 EACH; Start 08/17/16 at 09:00 Atorvastatin Calcium (Lipitor) 10 mg QHS PO Last administered on 08/17/16 20: 48; Admin Dose 10 MG; Start 08/17/16 at 21:00 Clopidogrel Bisulfate (plaVIX) 75 mg DAILY PO Last administered on 08/18/16 09 :09; Admin Dose 75 MG; Start 08/18/16 at 09:00 Metoprolol Tartrate (Lopressor) 25 mg BID PO Last administered on 08/18/16 09: 09; Admin Dose 25 MG; Start 08/18/16 at 09:00 Insulin Glargine (Lantus) 14 unit QHS SC ; Start 08/18/16 at 21:00; Status CELESTE DOWELL MD Aug 18, 2016 15:14
--- NOTE | 2016-08-18 15:40 | CONS ---
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 Plan: Spoke to Dr. Metcalf, patient placed on plavix, will have to be placed on Anticoagulation after right 4th toe amputation. Patient scheduled for amputation on Wednesday afternoon. Please stop patient's Heparin night before. Patient would need to be NPO midnight before. Patient to continue with Plavix per cardiology recommendations. Patient to continue with Vanco and Zosyn at this time. Dispo plan post/op pending on surgery. Consultation Date/Type/Reason Admit Date/Time Aug 14, 2016 at 14:49 Initial Consult Date 08/15/16 Type of Consultation: Cardiology Referring Provider: CELESTE BHATT MD 24 HR Interval Summary Free Text/Dictation 70 yo male admitted for right leg cellulitis and right 4th digit gangrene. Patient is doing well. He is s/p Angiogram per Dr. Metcalf. Placed on Plavix. Exam/Review of Systems Vital Signs Vitals Vital Signs Date Time Temp Pulse Resp B/P Pulse Ox O2 Delivery O2 Flow Rate FiO2 08/18/16 13:37 98.5 91 18 131/90 99 08/18/16 13:00 Room Air 08/18/16 12:00 2.0 Intake and Output 08/17/16 08/17/16 08/18/16 15:00 23:00 07:00 Intake Total 400 ml 50 ml 100 ml Output Total 3600 ml 80 ml Balance -3200 ml 50 ml 20 ml Exam Right 4th digit dry gangrene with no sign acute infection at this time. Right heel ulcer improving. Results Result Diagram: 08/18/16 0630 08/18/16 0630 Results 24 hrs Laboratory Tests Test 08/17/16 21:12 08/17/16 21:37 08/17/16 22:27 08/18/16 06:26 Bedside Glucose 46 *L 141 143 74 Test 08/18/16 06:30 08/18/16 06:41 08/18/16 09:01 08/18/16 12:24 White Blood Count 9.9 Red Blood Count 3.78 L Hemoglobin 11.2 L Hematocrit 34.5 L Mean Corpuscular Volume 91.3 Mean Corpuscular Hemoglobin 29.6 Mean Corpuscular Hemoglobin Concent 32.5 Red Cell Distribution Width 15.6 H Platelet Count 150 Mean Platelet Volume 11.4 H Neutrophils % 80.3 H Lymphocytes % 9.4 L Monocytes % 7.2 Eosinophils % 2.3 Basophils % 0.2 Nucleated Red Blood Cells % 0.0 Neutrophils # 8.0 H Lymphocytes # 0.9 Monocytes # 0.7 Eosinophils # 0.2 Basophils # 0.0 Nucleated Red Blood Cells # 0.0 Sodium Level 134 L Potassium Level 4.0 Chloride Level 96 L Carbon Dioxide Level 25 Anion Gap 17 H Blood Urea Nitrogen 50 H Creatinine 5.15 H Glucose Level 61 #L Calcium Level 7.4 L Troponin I 3.310 *H Bedside Glucose 84 84 137 Medications Medications Current Medications Acetaminophen/ Hydrocodone Bitart ([place] (5/325)) 1 tab Q6H PRN PO MODERATE PAIN LEVEL 4-6; Start 08/14/16 at 14:30 Zolpidem Tartrate (Ambien) 5 mg QHS PRN PO SLEEP; Start 08/14/16 at 14:30 Acetaminophen (Tylenol Tab) 650 mg Q4 PRN PO PAIN AND OR ELEVATED TEMP; Start 08/14/16 at 14:30 Ascorbic Acid (Vitamin C) 500 mg DAILY PO Last administered on 08/18/16 09:09 ; Admin Dose 500 MG; Start 08/15/16 at 09:00 Aspirin (Aspirin) 81 mg DAILY PO Last administered on 08/18/16 09:09; Admin Dose 81 MG; Start 08/15/16 at 09:00 Bisacodyl (Dulcolax Supp) 10 mg DAILY PRN [place] BM; Start 08/14/16 at 14:30 Calcitriol (Rocaltrol) 0.25 mcg DAILY PO Last administered on 08/18/16 09:09; Admin Dose 0.25 MCG; Start 08/15/16 at 09:00 Loratadine (Claritin) 10 mg DAILY PO Last administered on 08/18/16 09:09; Admin Dose 10 MG; Start 08/15/16 at 09:00 Multivit/Ca Carb/ B Cmplx/FA/Prenat (Sarika-Nahomi) 1 tab DAILY PO Last administered on 08/18/16 09:09; Admin Dose 1 TAB; Start 08/15/16 at 09:00 Saccharomyces Boulardii (Florastor) 500 mg BID PO Last administered on 09:10; Admin Dose 500 MG; Start 08/14/16 at 21:00 Tamsulosin HCl (Flomax) 0.4 mg HS PO Last administered on 08/17/16 20:48; Admin Dose 0.4 MG; Start 08/14/16 at 21:00 Miscellaneous Information 1 ea NOTE XX ; Start 08/14/16 at 15:30 Glucose (Glutose) 15 gm Q15M PRN PO DECREASED GLUCOSE; Start 08/14/16 at 15:30 Glucose (Glutose) 22.5 gm Q15M PRN PO DECREASED GLUCOSE; Start 08/14/16 at 15:30 Dextrose (D50w Syringe) 25 ml Q15M PRN IV DECREASED GLUCOSE; Start 08/14/16 at 15:30 Dextrose (D50w Syringe) 50 ml Q15M PRN IV DECREASED GLUCOSE Last administered on 08/17/16 21:14; Admin Dose 50 ML; Start 08/14/16 at 15:30 Glucagon (Glucagen) 1 mg Q15M PRN IM DECREASED GLUCOSE; Start 08/14/16 at 15:30 Glucose 15 gm 15 gm Q15M PRN BUCCAL DECREASED GLUCOSE; Start 08/14/16 at 15:30 Piperacillin Sod/ Tazobactam Sod (Zosyn 2.25gm/ 50ml (Pmx)) 50 ml @ 100 mls/hr Q12 IVPB Last administered on 08/18/16 09:07; Admin Dose 100 MLS/HR; Start 08/14/16 at 21:00 Diagnostic Test (Pha) (Accu-Chek) 1 ea 02 XX ; Start 08/16/16 at 02:00 Epoetin Nito (Epogen (Esrd)) 10,000 units MoWeFr@17 SC ; Start 08/17/16 at 17:00 Ondansetron HCl (Zofran Inj) 4 mg Q4H PRN IV NAUSEA AND/OR VOMITING Last administered on 08/16/16 09:23; Admin Dose 4 MG; Start 08/16/16 at 09:30 Ondansetron HCl (Zofran Odt) 4 mg Q6H PRN ODT NAUSEA; Start 08/16/16 at 09:30 Lactobacillus Acidophilus (Florajen3 Capsule) 1 each BID PO Last administered on 08/18/16 09:11; Admin Dose 1 EACH; Start 08/17/16 at 09:00 Atorvastatin Calcium (Lipitor) 10 mg QHS PO Last administered on 08/17/16 20: 48; Admin Dose 10 MG; Start 08/17/16 at 21:00 Clopidogrel Bisulfate (plaVIX) 75 mg DAILY PO Last administered on 08/18/16 09 :09; Admin Dose 75 MG; Start 08/18/16 at 09:00 Metoprolol Tartrate (Lopressor) 25 mg BID PO Last administered on 08/18/16 09: 09; Admin Dose 25 MG; Start 08/18/16 at 09:00 Insulin Glargine (Lantus) 14 unit QHS SC ; Start 08/18/16 at 21:00 Copies To: CC: CELESTE BHATT MD; DUONG METCALF MD, SYAMAK DPM Aug 18, 2016 15:39
--- NOTE | 2016-08-18 16:00 | RADRPT ---
Vent Rate: 114 bpm RR Interval: 0 msec DC Interval: 0 msec QRS Duration: 114 msec QT Interval: 350 msec QTC Interval: 482 msec P-R-T [place]: 0 - 77 - 0 degrees Atrial flutter with variable AV block Incomplete left bundle branch block ST amp; T wave abnormality, consider inferolateral ischemia Abnormal ECG Electronically Signed By: Avery Trinidad [id number]
[2016-08-18] MEDS: ATORVASTATIN 10 MG TAB PO SCH (21:30)
[2016-08-18] MEDS: TAMSULOSIN (SR) 0.4 MG CAP PO SCH (21:30)
[2016-08-18] MEDS: INSULIN GLARGINE [LANtus] 3 ML PEN SC SCH (21:34)
[2016-08-19] VITALS (19 sets, daily range): BP systolic 88–139; BP diastolic 55–79; PULSE 90–111; RESP 16–20
[2016-08-19] MEDS: ACCU-CHEK XX SCH (02:00)
--- NOTE | 2016-08-19 07:29 | CONS ---
Date/Time of Note Date/Time of Note DATE: 08/19/16 TIME: 07:27 Assessment/Plan Assessment/Plan Chief Complaint/Hosp Course 1) R 4th toe gangrene and RLE cellulitis awaits angiography and amputation can likely switch to po antibiotics post amputation continue with vanco/zosyn at present 08/18 - stable on vanco/zosyn, s/p cardiac stenting pt awaits cardiac clearance prior to proceeding with definitive surgery to RLE 08/19 - pt to set surgery on wednesday continue with vanco/zosyn will likely switch to oral antibiotics soon after surgery for a short period of time 2) CoNS in blood only one in four bottles, likely this represents contamination and no need for treatment 3) ESRD to get HD today 4)DM 5) diarrhea stools studies have been negative change probiotic to include multiple types of bacteria Problems: Consultation Date/Type/Reason Admit Date/Time Aug 14, 2016 at 14:49 Initial Consult Date 08/15/16 Type of Consultation: ID Referring Provider: CELESTE BHATT MD 24 HR Interval Summary Free Text/Dictation pt is cleared for surgery on R foot this wednesday He states his diarrhea is improving but still present no N, V appetite is ok no SOB Exam/Review of Systems Vital Signs Vitals Vital Signs Date Time Temp Pulse Resp B/P Pulse Ox O2 Delivery O2 Flow Rate FiO2 08/19/16 07:19 98.3 84 16 110/66 94 08/18/16 13:00 Room Air 08/18/16 12:00 2.0 Intake and Output 08/18/16 08/18/16 08/19/16 15:00 23:00 07:00 Intake Total 400 ml 400 ml 450 ml Output Total 20 ml 10 ml Balance 380 ml 390 ml 450 ml Exam Constitutional: alert Respiratory: clear to auscultation Cardiovascular: regular rate and rhythm Gastrointestinal: soft Extremities: other (foot is bandaged) Results Result Diagram: 08/18/16 0630 08/18/16 0630 Results 24 hrs Laboratory Tests Test 08/18/16 09:01 08/18/16 12:24 08/18/16 17:46 08/18/16 21:07 Bedside Glucose 84 137 222 H 202 Test 08/19/16 02:07 Bedside Glucose 163 Medications Medications Current Medications Acetaminophen/ Hydrocodone Bitart ([place] (5/325)) 1 tab Q6H PRN PO MODERATE PAIN LEVEL 4-6; Start 08/14/16 at 14:30 Zolpidem Tartrate (Ambien) 5 mg QHS PRN PO SLEEP; Start 08/14/16 at 14:30 Acetaminophen (Tylenol Tab) 650 mg Q4 PRN PO PAIN AND OR ELEVATED TEMP; Start 08/14/16 at 14:30 Ascorbic Acid (Vitamin C) 500 mg DAILY PO Last administered on 08/18/16 09:09 ; Admin Dose 500 MG; Start 08/15/16 at 09:00 Aspirin (Aspirin) 81 mg DAILY PO Last administered on 08/18/16 09:09; Admin Dose 81 MG; Start 08/15/16 at 09:00 Bisacodyl (Dulcolax Supp) 10 mg DAILY PRN [place] BM; Start 08/14/16 at 14:30 Calcitriol (Rocaltrol) 0.25 mcg DAILY PO Last administered on 08/18/16 09:09; Admin Dose 0.25 MCG; Start 08/15/16 at 09:00 Loratadine (Claritin) 10 mg DAILY PO Last administered on 08/18/16 09:09; Admin Dose 10 MG; Start 08/15/16 at 09:00 Multivit/Ca Carb/ B Cmplx/FA/Prenat (Sarika-Nahomi) 1 tab DAILY PO Last administered on 08/18/16 09:09; Admin Dose 1 TAB; Start 08/15/16 at 09:00 Saccharomyces Boulardii (Florastor) 500 mg BID PO Last administered on 21:30; Admin Dose 500 MG; Start 08/14/16 at 21:00 Tamsulosin HCl (Flomax) 0.4 mg HS PO Last administered on 08/18/16 21:30; Admin Dose 0.4 MG; Start 08/14/16 at 21:00 Miscellaneous Information 1 ea NOTE XX ; Start 08/14/16 at 15:30 Glucose (Glutose) 15 gm Q15M PRN PO DECREASED GLUCOSE; Start 08/14/16 at 15:30 Glucose (Glutose) 22.5 gm Q15M PRN PO DECREASED GLUCOSE; Start 08/14/16 at 15:30 Dextrose (D50w Syringe) 25 ml Q15M PRN IV DECREASED GLUCOSE; Start 08/14/16 at 15:30 Dextrose (D50w Syringe) 50 ml Q15M PRN IV DECREASED GLUCOSE Last administered on 08/17/16 21:14; Admin Dose 50 ML; Start 08/14/16 at 15:30 Glucagon (Glucagen) 1 mg Q15M PRN IM DECREASED GLUCOSE; Start 08/14/16 at 15:30 Glucose 15 gm 15 gm Q15M PRN BUCCAL DECREASED GLUCOSE; Start 08/14/16 at 15:30 Piperacillin Sod/ Tazobactam Sod (Zosyn 2.25gm/ 50ml (Pmx)) 50 ml @ 100 mls/hr Q12 IVPB Last administered on 08/18/16 21:31; Admin Dose 100 MLS/HR; Start 08/14/16 at 21:00 Diagnostic Test (Pha) (Accu-Chek) 1 ea 02 XX ; Start 08/16/16 at 02:00 Epoetin Nito (Epogen (Esrd)) 10,000 units MoWeFr@17 SC ; Start 08/17/16 at 17:00 Ondansetron HCl (Zofran Inj) 4 mg Q4H PRN IV NAUSEA AND/OR VOMITING Last administered on 08/16/16 09:23; Admin Dose 4 MG; Start 08/16/16 at 09:30 Ondansetron HCl (Zofran Odt) 4 mg Q6H PRN ODT NAUSEA; Start 08/16/16 at 09:30 Lactobacillus Acidophilus (Florajen3 Capsule) 1 each BID PO Last administered on 08/18/16 21:30; Admin Dose 1 EACH; Start 08/17/16 at 09:00 Atorvastatin Calcium (Lipitor) 10 mg QHS PO Last administered on 08/18/16 21: 30; Admin Dose 10 MG; Start 08/17/16 at 21:00 Clopidogrel Bisulfate (plaVIX) 75 mg DAILY PO Last administered on 08/18/16 09 :09; Admin Dose 75 MG; Start 08/18/16 at 09:00 Metoprolol Tartrate (Lopressor) 25 mg BID PO Last administered on 08/18/16 21: 31; Admin Dose 25 MG; Start 08/18/16 at 09:00 Insulin Glargine (Lantus) 14 unit QHS SC Last administered on 6/13/17at 21:34; Admin Dose 14 UNIT; Start 08/18/16 at 21:00 PEDRO PATRICK MD Aug 19, 2016 07:29
[2016-08-19] MEDS: INSULIN ASPART [NOVOLOG] 3 ML PEN SC SCH ×4 (07:55→20:55)
--- NOTE | 2016-08-19 08:18 | PN ---
Date/Time of Note Date/Time of Note DATE: 08/19/16 TIME: 08:13 Assessment/Plan VTE Prophylaxis VTE Prophylaxis Intervention: other Lines/Catheters IV Catheter Type (from [facility]): [place] Urinary Cath still in place: No Assessment/Plan Chief Complaint/Hosp Course 1. ESRD on maintenance hemodialysis [facility] , he has dialysis ordered for this morning. 2. CAD he has had NSTEMI , he had a coronary angiogram and had 2 stents placed in the LAD. He is now on aspirin and Plavix. 3. IDDM , his blood sugars have been low. I will decrease his dose of Lantus insulin. 4. PAD , gangrene of R foot 4th toe . He is scheduled for surgery in 2 days. 5. cellulitis of R lower leg , improving on antibiotics. 6. postural hypotension . 7. Atrial fib/flutter, new onset 8. Depression, this patient is now depressed because of his overwhelming medical condition. He is not usually a depressed person. I did speak to him about the possibility of seeing either a psychologist or psychiatrist. He refuses. I also asked him about taking an antidepressant. He refuses. I understand his situation. We will continue to treat him as we are. doing . I will offer supportive care as needed. Problems: Subjective 24 Hr Interval Summary Free Text/Dictation He is sleeping. He has no new complaints. He denies diarrhea. Constitutional: no complaints Respiratory: no complaints Cardiovascular: no complaints Gastrointestinal: no complaints Genitourinary: no complaints Psychological: depression Exam/Review of Systems Vital Signs Vitals Vital Signs Date Time Temp Pulse Resp B/P Pulse Ox O2 Delivery O2 Flow Rate FiO2 08/19/16 07:19 98.3 84 16 110/66 94 08/18/16 13:00 Room Air 08/18/16 12:00 2.0 Intake and Output 08/18/16 08/18/16 08/19/16 15:00 23:00 07:00 Intake Total 400 ml 400 ml 450 ml Output Total 20 ml 10 ml Balance 380 ml 390 ml 450 ml Exam Right lower leg erythema and cellulitis is improving. He does have some edema of the right lower leg. He has a gangrenous fourth toe on the right foot Constitutional: alert, frail, oriented Respiratory: clear to auscultation, normal air movement Cardiovascular: irregular rhythm Gastrointestinal: soft Results Result Diagram: 08/18/1662908/18/16629 Results 24 hrs Laboratory Tests Test 08/18/16 09:01 08/18/16 12:24 08/18/16 17:46 08/18/16 21:07 Bedside Glucose 84 137 222 H 202 Test 08/19/16 02:07 Bedside Glucose 163 Medications Medications Current Medications Acetaminophen/ Hydrocodone Bitart ([place] (5/325)) 1 tab Q6H PRN PO MODERATE PAIN LEVEL 4-6; Start 08/14/16 at 14:30 Zolpidem Tartrate (Ambien) 5 mg QHS PRN PO SLEEP; Start 08/14/16 at 14:30 Acetaminophen (Tylenol Tab) 650 mg Q4 PRN PO PAIN AND OR ELEVATED TEMP; Start 08/14/16 at 14:30 Ascorbic Acid (Vitamin C) 500 mg DAILY PO Last administered on 08/18/16 09:09 ; Admin Dose 500 MG; Start 08/15/16 at 09:00 Aspirin (Aspirin) 81 mg DAILY PO Last administered on 08/18/16 09:09; Admin Dose 81 MG; Start 08/15/16 at 09:00 Bisacodyl (Dulcolax Supp) 10 mg DAILY PRN [place] BM; Start 08/14/16 at 14:30 Calcitriol (Rocaltrol) 0.25 mcg DAILY PO Last administered on 08/18/16 09:09; Admin Dose 0.25 MCG; Start 08/15/16 at 09:00 Loratadine (Claritin) 10 mg DAILY PO Last administered on 08/18/16 09:09; Admin Dose 10 MG; Start 08/15/16 at 09:00 Multivit/Ca Carb/ B Cmplx/FA/Prenat (Sarika-Nahomi) 1 tab DAILY PO Last administered on 08/18/16 09:09; Admin Dose 1 TAB; Start 08/15/16 at 09:00 Saccharomyces Boulardii (Florastor) 500 mg BID PO Last administered on 21:30; Admin Dose 500 MG; Start 08/14/16 at 21:00 Tamsulosin HCl (Flomax) 0.4 mg HS PO Last administered on 08/18/16 21:30; Admin Dose 0.4 MG; Start 08/14/16 at 21:00 Miscellaneous Information 1 ea NOTE XX ; Start 08/14/16 at 15:30 Glucose (Glutose) 15 gm Q15M PRN PO DECREASED GLUCOSE; Start 08/14/16 at 15:30 Glucose (Glutose) 22.5 gm Q15M PRN PO DECREASED GLUCOSE; Start 08/14/16 at 15:30 Dextrose (D50w Syringe) 25 ml Q15M PRN IV DECREASED GLUCOSE; Start 08/14/16 at 15:30 Dextrose (D50w Syringe) 50 ml Q15M PRN IV DECREASED GLUCOSE Last administered on 08/17/16 21:14; Admin Dose 50 ML; Start 08/14/16 at 15:30 Glucagon (Glucagen) 1 mg Q15M PRN IM DECREASED GLUCOSE; Start 08/14/16 at 15:30 Glucose 15 gm 15 gm Q15M PRN BUCCAL DECREASED GLUCOSE; Start 08/14/16 at 15:30 Piperacillin Sod/ Tazobactam Sod (Zosyn 2.25gm/ 50ml (Pmx)) 50 ml @ 100 mls/hr Q12 IVPB Last administered on 08/18/16 21:31; Admin Dose 100 MLS/HR; Start 08/14/16 at 21:00 Diagnostic Test (Pha) (Accu-Chek) 1 ea 02 XX ; Start 08/16/16 at 02:00 Epoetin Nito (Epogen (Esrd)) 10,000 units MoWeFr@17 SC ; Start 08/17/16 at 17:00 Ondansetron HCl (Zofran Inj) 4 mg Q4H PRN IV NAUSEA AND/OR VOMITING Last administered on 08/16/16 09:23; Admin Dose 4 MG; Start 08/16/16 at 09:30 Ondansetron HCl (Zofran Odt) 4 mg Q6H PRN ODT NAUSEA; Start 08/16/16 at 09:30 Lactobacillus Acidophilus (Florajen3 Capsule) 1 each BID PO Last administered on 08/18/16 21:30; Admin Dose 1 EACH; Start 08/17/16 at 09:00 Atorvastatin Calcium (Lipitor) 10 mg QHS PO Last administered on 08/18/16 21: 30; Admin Dose 10 MG; Start 08/17/16 at 21:00 Clopidogrel Bisulfate (plaVIX) 75 mg DAILY PO Last administered on 08/18/16 09 :09; Admin Dose 75 MG; Start 08/18/16 at 09:00 Metoprolol Tartrate (Lopressor) 25 mg BID PO Last administered on 08/18/16 21: 31; Admin Dose 25 MG; Start 08/18/16 at 09:00 Insulin Glargine (Lantus) 14 unit QHS SC Last administered on 08/18/16 21:34; Admin Dose 14 UNIT; Start 08/18/16 at 21:00 CELESTE BHATT MD Aug 19, 2016 08:18
[2016-08-19] MEDS: CALCIUM ACETATE 667 MG CAP PO SCH ×3 (08:24→17:43)
[2016-08-19] MEDS: MULTIVIT/CA CARB/B CMPLX/FA TAB PO SCH (08:24)
[2016-08-19] MEDS: L ACIDOPHIL/B LACTIS/B LONGUM CAPSULE PO SCH ×2 (08:24→20:44)
[2016-08-19] MEDS: LORATADINE 10 MG TAB PO SCH (08:24)
[2016-08-19] MEDS: SACCHAROMYCES BOULARDII 250 MG CAP PO SCH ×2 (08:24→20:44)
[2016-08-19] MEDS: CLOPIDOGREL 75 MG TAB PO SCH (08:24)
[2016-08-19] MEDS: ASCORBIC ACID 500 MG TAB PO SCH (08:24)
[2016-08-19] MEDS: PIPER-TAZO 2.25 GM (PMX) 50 ML IVPB SCH ×2 (08:24→20:44)
[2016-08-19] MEDS: ASPIRIN 81 MG TAB PO SCH (08:24)
[2016-08-19] MEDS: CREON (24K-76K-120K) 1 CAP PO SCH ×3 (08:24→17:43)
[2016-08-19] MEDS: CALCITRIOL 0.25 MCG CAP PO SCH (08:25)
[2016-08-19] MEDS: METOPROLOL 25 MG TAB PO SCH ×2 (08:25→20:52)
[2016-08-19 08:59] LABS: ADD SCAN DIFF NO
[2016-08-19 09:05] LABS: BASOPHILS % 0.1 % (0.0-2.0); EOSINOPHILS # 0.3 10^3/ul (0.0-0.5); EOSINOPHILS % 1.9 % (0.0-7.0); HEMATOCRIT 35.1 % (42.0-52.0); HEMOGLOBIN 11.3 g/dl (14.0-18.0); LYMPHOCYTES # 1.6 10^3/ul (0.8-2.9); LYMPHOCYTES % 11.6 % (15.0-51.0); MEAN CORPUSCULAR HEMOGLOBIN 29.7 pg (29.0-33.0); MEAN CORPUSCULAR HGB CONC 32.2 g/dl (32.0-37.0); MEAN CORPUSCULAR VOLUME 92.1 fl (82.0-101.0); MEAN PLATELET VOLUME 11.2 fl (7.4-10.4); MONOCYTE # 0.9 10^3/ul (0.3-0.9); MONOCYTES % 6.7 % (0.0-11.0); NEUTROPHIL # 10.7 10^3/ul (1.6-7.5); NEUTROPHILS % 79.3 % (39.0-77.0); PLATELET COUNT 169 10^3/UL (140-415); RED BLOOD COUNT 3.81 10^6/ul (4.70-6.10); RED CELL DISTRIBUTION WIDTH 15.6 % (11.5-14.5); WHITE BLOOD COUNT 13.5 10^3/ul (4.8-10.8)
[2016-08-19 09:36] LABS: ALBUMIN 3.2 g/dl (3.3-4.9); ALBUMIN/GLOBULIN RATIO 1.18; CALCIUM 7.3 mg/dl (8.4-10.2); CREATININE 6.49 mg/dl (0.61-1.24); POTASSIUM 4.8 mmol/L (3.5-5.1); TOTAL PROTEIN 5.9 g/dl (6.1-8.1)
--- NOTE | 2016-08-19 12:56 | CONS ---
Date/Time of Note Date/Time of Note DATE: 08/19/16 TIME: 12:53 Assessment/Plan Assessment/Plan Additional Assessment/Plan # Non-STEMI s/p PCI to LAD with SYDNI x 2 # Gangrene # Atrial flutter - new onset # Chronic renal failure on dialysis. # Peripheral vascular disease status post left BKA, status post right fem-tib bypass, now with right toe gangrene. # Orthostatic hypotension. # Anemia of chronic disease. # Moderate aortic stenosis. # Hyperlipidemiacontrolled. # Type 2 diabetes. # Mild aortic regurgitation on echocardiography. # Benign prostatic hypertrophy # Right toe gangrene >> Ok to proceed with debridement >> unfortunately can not hold Plavix or ASA now >> eventual anticoagulation given atrial flutter- d/w Dr Rhoades- will start Eliquis 2.5 BID after surgery. >> Digoxin IV given , will try to avoid routine dosing given ESRD. >> Heparin drip vs lovenox >> Increase metoprolol for heart rate control >> will likely need plavix x 1 year, ASA x 1 month, and lifelong anticoagulation Consultation Date/Type/Reason Admit Date/Time Aug 14, 2016 at 14:49 Initial Consult Date 08/15/16 Type of Consultation: cardiology Referring Provider: CELESTE RHOADES MD 24 HR Interval Summary Free Text/Dictation Pt has been doing well from cardiac standpoint. No CP or SOB. Pending debridement on Wednesday. Exam/Review of Systems Vital Signs Vitals Vital Signs Date Time Temp Pulse Resp B/P Pulse Ox O2 Delivery O2 Flow Rate FiO2 08/19/16 12:24 98 08/19/16 11:26 97.8 18 139/72 95 08/18/16 13:00 Room Air 08/18/16 12:00 2.0 Intake and Output 08/18/16 08/18/16 08/19/16 15:00 23:00 07:00 Intake Total 400 ml 400 ml 450 ml Output Total 20 ml 10 ml Balance 380 ml 390 ml 450 ml Exam Constitutional: alert, oriented, well developed Psych: no complaints Head: normocephalic Eyes: nl conjunctiva ENMT: nl external ears & nose Neck: non-tender, supple Respiratory: clear to auscultation Cardiovascular: irregular rhythm (tachy slightly) Gastrointestinal: soft Musculoskeletal: other (L BKA, R c/d/i) Skin: nl turgor Results Result Diagram: 08/19/16 0850 08/19/16 0850 Results 24 hrs Laboratory Tests Test 08/18/16 17:46 08/18/16 21:07 08/19/16 02:07 08/19/16 08:22 Bedside Glucose 222 H 202 163 117 Test 08/19/16 08:50 08/19/16 11:59 White Blood Count 13.5 #H Red Blood Count 3.81 L Hemoglobin 11.3 L Hematocrit 35.1 L Mean Corpuscular Volume 92.1 Mean Corpuscular Hemoglobin 29.7 Mean Corpuscular Hemoglobin Concent 32.2 Red Cell Distribution Width 15.6 H Platelet Count 169 Mean Platelet Volume 11.2 H Neutrophils % 79.3 H Lymphocytes % 11.6 L Monocytes % 6.7 Eosinophils % 1.9 Basophils % 0.1 Nucleated Red Blood Cells % 0.0 Neutrophils # 10.7 H Lymphocytes # 1.6 Monocytes # 0.9 Eosinophils # 0.3 Basophils # 0.0 Nucleated Red Blood Cells # 0.0 Sodium Level 131 L Potassium Level 4.8 Chloride Level 93 L Carbon Dioxide Level 26 Anion Gap 17 H Blood Urea Nitrogen 67 H Creatinine 6.49 H Glucose Level 66 L Calcium Level 7.3 L Total Bilirubin 0.0 L Direct Bilirubin 0.00 Indirect Bilirubin 0.0 Aspartate Amino Transf (AST/SGOT) 26 Alanine Aminotransferase (ALT/SGPT) 44 Alkaline Phosphatase 183 H Total Protein 5.9 L Albumin 3.2 L Globulin 2.70 Albumin/Globulin Ratio 1.18 Bedside Glucose 128 Medications Medications Current Medications Acetaminophen/ Hydrocodone Bitart ([place] (5/325)) 1 tab Q6H PRN PO MODERATE PAIN LEVEL 4-6; Start 08/14/16 at 14:30 Zolpidem Tartrate (Ambien) 5 mg QHS PRN PO SLEEP; Start 08/14/16 at 14:30 Acetaminophen (Tylenol Tab) 650 mg Q4 PRN PO PAIN AND OR ELEVATED TEMP; Start 08/14/16 at 14:30 Ascorbic Acid (Vitamin C) 500 mg DAILY PO Last administered on 08/19/16 08:24 ; Admin Dose 500 MG; Start 08/15/16 at 09:00 Aspirin (Aspirin) 81 mg DAILY PO Last administered on 08/19/16 08:24; Admin Dose 81 MG; Start 08/15/16 at 09:00 Bisacodyl (Dulcolax Supp) 10 mg DAILY PRN [place] BM; Start 08/14/16 at 14:30 Calcitriol (Rocaltrol) 0.25 mcg DAILY PO Last administered on 08/19/16 08:25; Admin Dose 0.25 MCG; Start 08/15/16 at 09:00 Loratadine (Claritin) 10 mg DAILY PO Last administered on 08/19/16 08:24; Admin Dose 10 MG; Start 08/15/16 at 09:00 Multivit/Ca Carb/ B Cmplx/FA/Prenat (Sarika-Nahomi) 1 tab DAILY PO Last administered on 08/19/16 08:24; Admin Dose 1 TAB; Start 08/15/16 at 09:00 Saccharomyces Boulardii (Florastor) 500 mg BID PO Last administered on 08:24; Admin Dose 500 MG; Start 08/14/16 at 21:00 Tamsulosin HCl (Flomax) 0.4 mg HS PO Last administered on 08/18/16 21:30; Admin Dose 0.4 MG; Start 08/14/16 at 21:00 Miscellaneous Information 1 ea NOTE XX ; Start 08/14/16 at 15:30 Glucose (Glutose) 15 gm Q15M PRN PO DECREASED GLUCOSE; Start 08/14/16 at 15:30 Glucose (Glutose) 22.5 gm Q15M PRN PO DECREASED GLUCOSE; Start 08/14/16 at 15:30 Dextrose (D50w Syringe) 25 ml Q15M PRN IV DECREASED GLUCOSE; Start 08/14/16 at 15:30 Dextrose (D50w Syringe) 50 ml Q15M PRN IV DECREASED GLUCOSE Last administered on 08/17/16 21:14; Admin Dose 50 ML; Start 08/14/16 at 15:30 Glucagon (Glucagen) 1 mg Q15M PRN IM DECREASED GLUCOSE; Start 08/14/16 at 15:30 Glucose 15 gm 15 gm Q15M PRN BUCCAL DECREASED GLUCOSE; Start 08/14/16 at 15:30 Piperacillin Sod/ Tazobactam Sod (Zosyn 2.25gm/ 50ml (Pmx)) 50 ml @ 100 mls/hr Q12 IVPB Last administered on 08/18/16 21:31; Admin Dose 100 MLS/HR; Start 08/14/16 at 21:00 Diagnostic Test (Pha) (Accu-Chek) 1 ea 02 XX ; Start 08/16/16 at 02:00 Epoetin Nito (Epogen (Esrd)) 10,000 units MoWeFr@17 SC ; Start 08/17/16 at 17:00 Ondansetron HCl (Zofran Inj) 4 mg Q4H PRN IV NAUSEA AND/OR VOMITING Last administered on 08/16/16 09:23; Admin Dose 4 MG; Start 08/16/16 at 09:30 Ondansetron HCl (Zofran Odt) 4 mg Q6H PRN ODT NAUSEA; Start 08/16/16 at 09:30 Lactobacillus Acidophilus (Florajen3 Capsule) 1 each BID PO Last administered on 08/19/16 08:24; Admin Dose 1 EACH; Start 08/17/16 at 09:00 Atorvastatin Calcium (Lipitor) 10 mg QHS PO Last administered on 08/18/16 21: 30; Admin Dose 10 MG; Start 08/17/16 at 21:00 Clopidogrel Bisulfate (plaVIX) 75 mg DAILY PO Last administered on 08/19/16 08 :24; Admin Dose 75 MG; Start 08/18/16 at 09:00 Metoprolol Tartrate (Lopressor) 25 mg BID PO Last administered on 08/18/16 21: 31; Admin Dose 25 MG; Start 08/18/16 at 09:00 Insulin Glargine (Lantus) 14 unit QHS SC Last administered on 08/18/16 21:34; Admin Dose 14 UNIT; Start 08/18/16 at 21:00 DUONG METCALF MD Aug 19, 2016 12:56
[2016-08-19] MEDS: EPOETIN 10000 UNITS/1 ML INJ (ESRD) SC SCH (17:00)
[2016-08-19] MEDS: ATORVASTATIN 10 MG TAB PO SCH (20:44)
[2016-08-19] MEDS: TAMSULOSIN (SR) 0.4 MG CAP PO SCH (20:44)
[2016-08-19] MEDS: INSULIN GLARGINE [LANtus] 3 ML PEN SC SCH (20:54)
[2016-08-20] VITALS (10 sets, daily range): BP systolic 108–135; BP diastolic 58–79; PULSE 80–103; RESP 16–18
[2016-08-20] MEDS: ACCU-CHEK XX SCH (02:00)
[2016-08-20] MEDS: INSULIN ASPART [NOVOLOG] 3 ML PEN SC SCH ×4 (08:24→20:29)
--- NOTE | 2016-08-20 09:09 | PN ---
Date/Time of Note Date/Time of Note DATE: 08/20/16 TIME: 08:59 SUBJECTIVE: Patient without complaints denies any chest pains dyspnea or palpitations has very little pain in his right toe area, events noted. Chart reviewed medications and laboratory studies. ROS: Patient denied any fevers, chills, weight loss, nausea, vomiting, diarrhea, constipation, cough, hemoptysis, dysuria, hematuria, nocturia, any neurologic symptoms, headache, any chest pains, dyspnea, PND, orthopnea, leg edema, or palpitations. All other review of systems were normal. Mild right foot pain, 14 point review of systems otherwise negative. Objective Please see vital signs from chart. HEENT; no JVD, no HJR, carotids 2 over 4+ without bruits. Chest: Clear to auscultation and percussion, no rales, wheezes or rhonchi. Cardiac: S4, S1, S2 with normal physiologic splitting, 1/6 systolic ejection murmur, no rub click or diastolic murmur noted. Abdominal: Bowel sounds positive, soft nontender, no abdominal bruit noted, no hepatosplenomegaly. Extremities: No cyanosis, clubbing, or edema. Negative Homans sign or palpable cords. Left groin without ecchymosis or hematoma. Pulses: 2/4 pulses diffusely no bruits noted. Left BKA, faint left femoral pulse 1/4+ right femoral pulse. Right foot bandaged. LABORATORY STUDIES; Telemetry atrial flutter rates between 90-100 bpm . ASSESSMENT: 1. Non-ST elevation myocardial infarction suspect inferior wall with elevated troponin, subtle EKG changes and new inferior wall motion abnormality. Status post 2 drug-eluting stents 2.5 x 16 mm in the proximal LAD, 2.25 x 12 mm in the mid LAD postdilated. Completely occluded mid circumflex, 50-60% distal right coronary artery stenoses on angiography. 2. Chronic renal failure on dialysis. 3. Peripheral vascular disease status post left BKA, status post right fem-tib bypass, now with right toe gangrene. 4. Orthostatic hypotension. 5. Anemia of chronic disease. 6. Moderate aortic stenosis. 7. Hyperlipidemia-controlled. 8. Type 2 diabetes. 9. Mild aortic regurgitation on echocardiography. 10. Benign prostatic hypertrophy 11. Right toe gangrene for intervention in the near future. 12. New onset atrial flutter rates difficult to control. At this time the patient has had 2 drug-eluting stents placed, has new onset atrial flutter. Will need better rate control will increase metoprolol further and give 1 dose of digoxin. Will need to be on aspirin and Plavix during debridement and post debridement if stable will need anticoagulation for atrial flutter with chads VASC score of 4. PLAN: 1. Increase metoprolol to 37.5 twice daily. 2. Digoxin 0.25 mg IV once. 3. Patient will need to be on aspirin and Plavix tomorrow during his debridement. 4. Start anticoagulation when stable post debridement. CARINE ALONSO MD Aug 20, 2016 09:09
[2016-08-20] MEDS: CREON (24K-76K-120K) 1 CAP PO SCH ×3 (09:11→17:08)
[2016-08-20] MEDS: ASPIRIN 81 MG TAB PO SCH (09:12)
[2016-08-20] MEDS: CALCIUM ACETATE 667 MG CAP PO SCH ×3 (09:12→17:09)
[2016-08-20] MEDS: LORATADINE 10 MG TAB PO SCH (09:12)
[2016-08-20] MEDS: MULTIVIT/CA CARB/B CMPLX/FA TAB PO SCH (09:12)
[2016-08-20] MEDS: CLOPIDOGREL 75 MG TAB PO SCH (09:12)
[2016-08-20] MEDS: SACCHAROMYCES BOULARDII 250 MG CAP PO SCH ×2 (09:12→20:17)
[2016-08-20] MEDS: L ACIDOPHIL/B LACTIS/B LONGUM CAPSULE PO SCH ×2 (09:12→20:17)
[2016-08-20] MEDS: CALCITRIOL 0.25 MCG CAP PO SCH (09:12)
[2016-08-20] MEDS: PIPER-TAZO 2.25 GM (PMX) 50 ML IVPB SCH ×2 (09:13→20:23)
[2016-08-20] MEDS: ASCORBIC ACID 500 MG TAB PO SCH (09:13)
[2016-08-20] MEDS ORDERED: DIGOXIN 500 MCG INJ IV ONE (09:30)
[2016-08-20] MEDS: METOPROLOL 25 MG TAB PO SCH ×2 (10:59→20:18)
--- NOTE | 2016-08-20 13:16 | CONS ---
Date/Time of Note Date/Time of Note DATE: 08/20/16 TIME: 13:13 Assessment/Plan Assessment/Plan Chief Complaint/Hosp Course 1. ESRD on maintenance hemodialysis [facility] . Betty will order hemodialysis for tomorrow morning. He is scheduled for right foot surgery tomorrow afternoon. 2. CAD he has had NSTEMI , he had a coronary angiogram and had 2 stents placed in the LAD. He is now on aspirin and Plavix. 3. IDDM , his blood sugars have been low. I will decrease his dose of Lantus insulin. 4. PAD , gangrene of R foot 4th toe . He is scheduled for surgery tomorrow afternoon. 5. cellulitis of R lower leg , improving on antibiotics. 6. postural hypotension . 7. Atrial fib/flutter, new onset , I plan to start him on Eliquis 2.5 mg twice a day after surgery tomorrow 8. Depression, this patient is now depressed because of his overwhelming medical condition. He is not usually a depressed person. I did speak to him about the possibility of seeing either a psychologist or psychiatrist. He refuses. I also asked him about taking an antidepressant. He refuses. I understand his situation. We will continue to treat him as we are. doing . I will offer supportive care as needed. Problems: Consultation Date/Type/Reason Admit Date/Time Aug 14, 2016 at 14:49 Initial Consult Date 08/15/16 Type of Consultation: cardiology Referring Provider: CELESTE BHATT MD 24 HR Interval Summary Free Text/Dictation He is in bed sleeping. He denies any new problems. He has no complaints. Constitutional: no complaints Exam/Review of Systems Vital Signs Vitals Vital Signs Date Time Temp Pulse Resp B/P Pulse Ox O2 Delivery O2 Flow Rate FiO2 08/20/16 12:34 87 08/20/16 11:24 98.7 18 128/79 97 08/20/16 08:00 Nasal Cannula 2.0 Intake and Output 08/19/16 08/19/16 08/20/16 15:00 23:00 07:00 Intake Total 300 ml 650 ml 400 ml Output Total 3300 ml 3100 ml Balance -3000 ml -2450 ml 400 ml Exam He has a left BKA and right foot has gangrene of the fourth digit. Constitutional: alert, frail, oriented Psych: depression Respiratory: clear to auscultation, normal air movement Cardiovascular: irregular rhythm Gastrointestinal: soft Results Result Diagram: 08/19/16 0850 08/19/16 0850 Results 24 hrs Laboratory Tests Test 08/19/16 17:25 08/19/16 20:46 08/20/16 02:28 08/20/16 08:12 Bedside Glucose 135 182 157 148 Medications Medications Current Medications Acetaminophen/ Hydrocodone Bitart ([place] (5/325)) 1 tab Q6H PRN PO MODERATE PAIN LEVEL 4-6; Start 08/14/16 at 14:30 Zolpidem Tartrate (Ambien) 5 mg QHS PRN PO SLEEP; Start 08/14/16 at 14:30 Acetaminophen (Tylenol Tab) 650 mg Q4 PRN PO PAIN AND OR ELEVATED TEMP; Start 08/14/16 at 14:30 Ascorbic Acid (Vitamin C) 500 mg DAILY PO Last administered on 08/20/16 09:13 ; Admin Dose 500 MG; Start 08/15/16 at 09:00 Aspirin (Aspirin) 81 mg DAILY PO Last administered on 08/20/16 09:12; Admin Dose 81 MG; Start 08/15/16 at 09:00 Bisacodyl (Dulcolax Supp) 10 mg DAILY PRN [place] BM; Start 08/14/16 at 14:30 Calcitriol (Rocaltrol) 0.25 mcg DAILY PO Last administered on 08/20/16 09:12; Admin Dose 0.25 MCG; Start 08/15/16 at 09:00 Loratadine (Claritin) 10 mg DAILY PO Last administered on 08/20/16 09:12; Admin Dose 10 MG; Start 08/15/16 at 09:00 Multivit/Ca Carb/ B Cmplx/FA/Prenat (Sarika-Nahomi) 1 tab DAILY PO Last administered on 08/20/16 09:12; Admin Dose 1 TAB; Start 08/15/16 at 09:00 Saccharomyces Boulardii (Florastor) 500 mg BID PO Last administered on 09:12; Admin Dose 500 MG; Start 08/14/16 at 21:00 Tamsulosin HCl (Flomax) 0.4 mg HS PO Last administered on 08/19/16 20:44; Admin Dose 0.4 MG; Start 08/14/16 at 21:00 Miscellaneous Information 1 ea NOTE XX ; Start 08/14/16 at 15:30 Glucose (Glutose) 15 gm Q15M PRN PO DECREASED GLUCOSE; Start 08/14/16 at 15:30 Glucose (Glutose) 22.5 gm Q15M PRN PO DECREASED GLUCOSE; Start 08/14/16 at 15:30 Dextrose (D50w Syringe) 25 ml Q15M PRN IV DECREASED GLUCOSE; Start 08/14/16 at 15:30 Dextrose (D50w Syringe) 50 ml Q15M PRN IV DECREASED GLUCOSE Last administered on 08/17/16 21:14; Admin Dose 50 ML; Start 08/14/16 at 15:30 Glucagon (Glucagen) 1 mg Q15M PRN IM DECREASED GLUCOSE; Start 08/14/16 at 15:30 Glucose 15 gm 15 gm Q15M PRN BUCCAL DECREASED GLUCOSE; Start 08/14/16 at 15:30 Piperacillin Sod/ Tazobactam Sod (Zosyn 2.25gm/ 50ml (Pmx)) 50 ml @ 100 mls/hr Q12 IVPB Last administered on 08/20/16 09:13; Admin Dose 100 MLS/HR; Start 08/14/16 at 21:00 Diagnostic Test (Pha) (Accu-Chek) 1 ea 02 XX ; Start 08/16/16 at 02:00 Epoetin Nito (Epogen (Esrd)) 10,000 units MoWeFr@17 SC ; Start 08/17/16 at 17:00 Ondansetron HCl (Zofran Inj) 4 mg Q4H PRN IV NAUSEA AND/OR VOMITING Last administered on 08/16/16 09:23; Admin Dose 4 MG; Start 08/16/16 at 09:30 Ondansetron HCl (Zofran Odt) 4 mg Q6H PRN ODT NAUSEA; Start 08/16/16 at 09:30 Lactobacillus Acidophilus (Florajen3 Capsule) 1 each BID PO Last administered on 08/20/16 09:12; Admin Dose 1 EACH; Start 08/17/16 at 09:00 Atorvastatin Calcium (Lipitor) 10 mg QHS PO Last administered on 08/19/16 20: 44; Admin Dose 10 MG; Start 08/17/16 at 21:00 Clopidogrel Bisulfate (plaVIX) 75 mg DAILY PO Last administered on 08/20/16 09 :12; Admin Dose 75 MG; Start 08/18/16 at 09:00 Insulin Glargine (Lantus) 14 unit QHS SC Last administered on 08/19/16 20:54; Admin Dose 14 UNIT; Start 08/18/16 at 21:00 Metoprolol Tartrate (Lopressor) 37.5 mg BID PO Last administered on 08/20/16 10:59; Admin Dose 37.5 MG; Start 08/20/16 at 10:00 CELESTE BHATT MD Aug 20, 2016 13:16
[2016-08-20] MEDS: ATORVASTATIN 10 MG TAB PO SCH (20:18)
[2016-08-20] MEDS: TAMSULOSIN (SR) 0.4 MG CAP PO SCH (20:18)
[2016-08-20] MEDS: INSULIN GLARGINE [LANtus] 3 ML PEN SC SCH (20:30)
[2016-08-21] VITALS (26 sets, daily range): BP systolic 101–153; BP diastolic 53–78; PULSE 60–101; RESP 16–20
[2016-08-21] MEDS: ACCU-CHEK XX SCH (02:00)
[2016-08-21 05:47] LABS: ADD SCAN DIFF NO
[2016-08-21 06:18] LABS: BASOPHILS % 0.3 % (0.0-2.0); EOSINOPHILS # 0.2 10^3/ul (0.0-0.5); EOSINOPHILS % 1.6 % (0.0-7.0); HEMATOCRIT 35.3 % (42.0-52.0); HEMOGLOBIN 11.2 g/dl (14.0-18.0); LYMPHOCYTES # 1.7 10^3/ul (0.8-2.9); LYMPHOCYTES % 14.9 % (15.0-51.0); MEAN CORPUSCULAR HEMOGLOBIN 29.3 pg (29.0-33.0); MEAN CORPUSCULAR HGB CONC 31.7 g/dl (32.0-37.0); MEAN CORPUSCULAR VOLUME 92.4 fl (82.0-101.0); MEAN PLATELET VOLUME 11.3 fl (7.4-10.4); MONOCYTE # 0.7 10^3/ul (0.3-0.9); MONOCYTES % 6.4 % (0.0-11.0); NEUTROPHIL # 8.9 10^3/ul (1.6-7.5); NEUTROPHILS % 76.4 % (39.0-77.0); PLATELET COUNT 172 10^3/UL (140-415); RED BLOOD COUNT 3.82 10^6/ul (4.70-6.10); RED CELL DISTRIBUTION WIDTH 15.9 % (11.5-14.5); WHITE BLOOD COUNT 11.6 10^3/ul (4.8-10.8)
[2016-08-21 06:53] LABS: CALCIUM 7.7 mg/dl (8.4-10.2); CREATININE 6.32 mg/dl (0.61-1.24)
[2016-08-21 07:02] LABS: POTASSIUM 5.6 mmol/L (3.5-5.1)
[2016-08-21 07:17] LABS: MAGNESIUM 2.2 mg/dl (1.7-2.5); PHOSPHORUS 6.9 mg/dl (2.5-4.9)
[2016-08-21] MEDS: INSULIN ASPART [NOVOLOG] 3 ML PEN SC SCH ×4 (07:53→21:00)
[2016-08-21] MEDS: CALCIUM ACETATE 667 MG CAP PO SCH ×3 (07:55→16:56)
[2016-08-21] MEDS: CREON (24K-76K-120K) 1 CAP PO SCH ×3 (07:55→16:56)
[2016-08-21] MEDS: CLOPIDOGREL 75 MG TAB PO SCH ×2 (09:00→11:03)
[2016-08-21] MEDS: ASCORBIC ACID 500 MG TAB PO SCH (09:00)
[2016-08-21] MEDS: CALCITRIOL 0.25 MCG CAP PO SCH (09:00)
[2016-08-21] MEDS: SACCHAROMYCES BOULARDII 250 MG CAP PO SCH ×2 (09:00→21:00)
[2016-08-21] MEDS: LORATADINE 10 MG TAB PO SCH (09:00)
[2016-08-21] MEDS: L ACIDOPHIL/B LACTIS/B LONGUM CAPSULE PO SCH ×2 (09:00→21:00)
[2016-08-21] MEDS: MULTIVIT/CA CARB/B CMPLX/FA TAB PO SCH (09:00)
[2016-08-21] MEDS: METOPROLOL 25 MG TAB PO SCH ×3 (09:00→21:00)
[2016-08-21] MEDS: ASPIRIN 81 MG TAB PO SCH ×2 (09:00→11:03)
[2016-08-21] MEDS: PIPER-TAZO 2.25 GM (PMX) 50 ML IVPB SCH ×2 (09:23→20:20)
--- NOTE | 2016-08-21 10:44 | PN ---
Date/Time of Note Date/Time of Note DATE: 08/21/16 TIME: 10:36 SUBJECTIVE: Patient without complaints denies any chest pains dyspnea or palpitations has very little pain in his right toe area, events noted. Patient for toe debridement is afternoon. Chart reviewed medications and laboratory studies. ROS: Patient denied any fevers, chills, weight loss, nausea, vomiting, diarrhea, constipation, cough, hemoptysis, dysuria, hematuria, nocturia, any neurologic symptoms, headache, any chest pains, dyspnea, PND, orthopnea, leg edema, or palpitations. All other review of systems were normal. Mild right foot pain, 14 point review of systems otherwise negative. Objective Please see vital signs from chart. HEENT; no JVD, no HJR, carotids 2 over 4+ without bruits. Chest: Clear to auscultation and percussion, no rales, wheezes or rhonchi. Cardiac: S4, S1, S2 with normal physiologic splitting, 1/6 systolic ejection murmur, no rub click or diastolic murmur noted. Abdominal: Bowel sounds positive, soft nontender, no abdominal bruit noted, no hepatosplenomegaly. Extremities: No cyanosis, clubbing, or edema. Negative Homans sign or palpable cords. Left groin without ecchymosis or hematoma. Pulses: 2/4 pulses diffusely no bruits noted. Left BKA, faint left femoral pulse 1/4+ right femoral pulse. Right foot bandaged. LABORATORY STUDIES; White count 11.6, hemoglobin 11.2, hematocrit 35.3, platelets 172, electrolytes potassium 5.6, BUN 68 creatinine 6.3, magnesium 2.2, phosphate 6.9, digoxin level 0.7. EKG this morning revealed atrial flutter at 70 with variable rate, nonspecific ST abnormality, no acute changes. Telemetry atrial flutter rates, controlled between 65-80 bpm . ASSESSMENT: 1. Non-ST elevation myocardial infarction suspect inferior wall with elevated troponin, subtle EKG changes and new inferior wall motion abnormality. Status post 2 drug-eluting stents 2.5 x 16 mm in the proximal LAD, 2.25 x 12 mm in the mid LAD postdilated. Completely occluded mid circumflex, 50-60% distal right coronary artery stenoses on angiography. 2. Chronic renal failure on dialysis. 3. Peripheral vascular disease status post left BKA, status post right fem-tib bypass, now with right toe gangrene. 4. Orthostatic hypotension. 5. Anemia of chronic disease. 6. Moderate aortic stenosis. 7. Hyperlipidemia-controlled. 8. Type 2 diabetes. 9. Mild aortic regurgitation on echocardiography. 10. Benign prostatic hypertrophy 11. Right toe gangrene for intervention in the near future. 12. New onset atrial flutter rates finally under control. At this time the patient has had 2 drug-eluting stents placed, has new onset atrial flutter. Patient's atrial flutter now controlled, to start on Eliquis low-dose once debridement finished and no significant bleeding. Patient to receive dialysis today discussed case with Dr. Reed. Continue metoprolol 37.5 mg twice daily aspirin and Plavix and will use digoxin sparingly as needed for rate control. PLAN: 1. Continue metoprolol at current dose of 37.5 twice daily, aspirin and Plavix. 2. [place] Eliquis low-dose 2.5 twice daily once stable post debridement patient with chads VASC score for. 3. Patient to receive dialysis today to prevent hyperkalemia and volume overload prior to debridement. 4. Otherwise continue current therapy with blood pressure and cholesterol control and atrial flutter rates finally controlled. CARINE ALONSO MD Aug 21, 2016 10:44
--- NOTE | 2016-08-21 12:59 | HPN ---
Date/Time of Note Date/Time of Note DATE: 08/21/16 TIME: 12:54 Interval H&P Admission Note Pt. seen H&P reviewed: No system changes Patient with right foot 4th digit gangrene and heel ulceration. Plan for right 4th digit amputation and possible debridement of heel ulceration. Patient is s/ p 2 stent placement since admission now on Plavix and Aspirin per Cardiac recommendations. No other changes since Dr. Nunze H&P on 08/14/16. Patient has been cleared by Cardiology and Vascular to precede with today's planned operation. CORIE ROSA DPM Aug 21, 2016 12:59
[2016-08-21] MEDS ORDERED: ETOMIDATE 20 MG INJ ONE (13:34)
[2016-08-21] MEDS ORDERED: FENTAnyl 50 MCG/ML VIAL ONE (13:34)
[2016-08-21] MEDS ORDERED: LIDOCAINE 1% (MDV) 20 ML INJ ONE (13:34)
[2016-08-21] MEDS ORDERED: PROPOFOL 0 ML ONE (13:34)
--- NOTE | 2016-08-21 13:56 | CONS ---
DATE OF ADMISSION: 08/14/2016 DATE OF CONSULTATION: 08/14/2016 TYPE OF CONSULTATION: VASCULAR SURGERY Dear Doctors: Mr. Hayden is a 70-year-old gentleman known to our vascular surgery service secondary to history of bi lateral lower extremity gangrene. Patient had undergone a left BKA, which we have managed for him. At the moment, the patient also has developed gangrene of the right lower extremity. The patient s ubsequently underwent femoral to anterior tibial in situ bypass in order to increase his perfusion a nd for his lower extremity gangrene wound care. He now presents with gangrene of his fourth toe on the right side and some heel ulcer. He denies shortness of breath, chest pain, nausea, vomiting, fe gisela or chills. The patient is mainly bed and wheelchair bound. REVIEW OF SYSTEMS: A 14-point review performed and negative except what is mentioned in the HPI. PAST MEDICAL HISTORY: Entails diabetes type 2, insulin-dependent, hypertension, pancreatitis with p ancreatic insufficiency, end-stage renal disease on hemodialysis, diabetic nephropathy, UTI, has sev ere cholesterol postural hypotension due to autonomic neuropathy, also noncompliance. PAST SURGICAL HISTORY: Vasectomy, tonsillectomy, colonoscopy right eye cataract extraction, right a rm AV fistula creation, left below knee amputation, right leg revascularization. FAMILY HISTORY: Positive for coronary artery disease and hypertension. SOCIAL HISTORY: He denies current tobacco, alcohol or illicit drug use. He was an ex-smoker in the past for many years. PHYSICAL EXAMINATION: GENERAL: Alert and oriented x3, no apparent distress. HEENT: Normocephalic, atraumatic. EOMI. Mucosa moist. NECK: Supple. No carotid bruit. PULMONARY: Clear to auscultation bilaterally. No crackles. CARDIOVASCULAR: S1, S2 present. No murmurs. ABDOMEN: Soft, nontender, nondistended. Bowel sounds positive. EXTREMITIES: Right lower extremity: Palpable femoral pulse, nonpalpable pedal pulse. Motor and se nsory intact, 4th toe gangrene. Surgical scars are well healed. There is a bypass that crosses ove r to anterior tibial on the medial aspect that is a palpable graft. There is also a palpable graft at the ankle. ASSESSMENT AND PLAN: 1. Bilateral lower extremity atherosclerosis with gangrene: It seems the patient has developed wor sening of his fourth toe wound with his heel ulcer. We will plan to obtain lower extremity arterial duplex to further delineate his vascular flow volume through the IV fluids. 2. The patient may require an angiogram to further delineate any findings of his venous disease. 3. Optimize vascular status (BP meds, diet, nutrition, exercise, sugar control, antiplatelets). 4. Discussed findings, plan and management with the patient and he understands. Thank you for allowing us to partake in the care of your patient. Please call with any questions. Dictated By: MARTÍNEZ JOSHUA/YOANDY Conf#: [id number] DID#: [id number]
--- NOTE | 2016-08-21 14:33 | RADRPT ---
Vent Rate: 69 bpm RR Interval: 0 msec ND Interval: 0 msec QRS Duration: 124 msec QT Interval: 354 msec QTC Interval: 379 msec P-R-T Clifford: 96 - 70 - 0 degrees Atrial flutter with 4:1 AV conduction Nonspecific intraventricular conduction delay ST amp; T wave abnormality, consider anterolateral ischemia Abnormal ECG Electronically Signed By: Avery Trinidad [id number]
[2016-08-21] MEDS ORDERED: LIDOCAINE 1% (MPF) 30 ML INJ ONE (14:36)
[2016-08-21] MEDS ORDERED: LIDOCAINE 1% (STERILE-PAK) 30 ML INJ ONE (14:36)
--- NOTE | 2016-08-21 15:18 | CONS ---
Date/Time of Note Date/Time of Note DATE: 08/21/16 TIME: 15:08 Assessment/Plan Assessment/Plan Additional Assessment/Plan 70 yo male with right 4th digit gangrene, heel ulcer and cellulitis. He was found to have NSTEMI upon admission, s/p stent placement, now with possible acute stroke. Case was cancelled. The wounds were debrided. Recommend continuing with daily betadine dressing changes. Appreciate Medical team care of this patient. Patient to have stroke work up. Will continue to follow patient. Consultation Date/Type/Reason Admit Date/Time Aug 14, 2016 at 14:49 Initial Consult Date 08/15/16 Type of Consultation: cardiology Referring Provider: CELESTE BHATT MD 24 HR Interval Summary Free Text/Dictation Patient was planned to have Right 4th digit amputation. He was seen in holding area, he was lethargic and non responsive, not at his base line. Patient was evaluated by Dr. Nunez and concern for acute stroke. Case to be cancelled at this time. Stroke protocol and code. Exam/Review of Systems Vital Signs Vitals Vital Signs Date Time Temp Pulse Resp B/P Pulse Ox O2 Delivery O2 Flow Rate FiO2 08/21/16 14:17 66 20 143/71 100 Nasal Cannula 2.0 08/21/16 13:27 98.0 Intake and Output 08/20/16 08/20/16 08/21/16 15:00 23:00 07:00 Intake Total 850 ml 450 ml Balance 850 ml 450 ml Exam Right 4th digit seems to be dry and heel ulcer with necrotic fibrotic tissue. Results Result Diagram: 08/21/16 0515 08/21/16 1220 Results 24 hrs Laboratory Tests Test 08/20/16 17:06 08/20/16 20:21 08/21/16 02:40 08/21/16 05:15 Bedside Glucose 138 241 H 167 White Blood Count 11.6 H Red Blood Count 3.82 L Hemoglobin 11.2 L Hematocrit 35.3 L Mean Corpuscular Volume 92.4 Mean Corpuscular Hemoglobin 29.3 Mean Corpuscular Hemoglobin Concent 31.7 L Red Cell Distribution Width 15.9 H Platelet Count 172 Mean Platelet Volume 11.3 H Neutrophils % 76.4 Lymphocytes % 14.9 L Monocytes % 6.4 Eosinophils % 1.6 Basophils % 0.3 Nucleated Red Blood Cells % 0.0 Neutrophils # 8.9 H Lymphocytes # 1.7 Monocytes # 0.7 Eosinophils # 0.2 Basophils # 0.0 Nucleated Red Blood Cells # 0.0 Sodium Level 135 Potassium Level 5.6 H Chloride Level 98 Carbon Dioxide Level 26 Anion Gap 17 H Blood Urea Nitrogen 68 H Creatinine 6.32 H Glucose Level 122 # Calcium Level 7.7 L Phosphorus Level 6.9 H Magnesium Level 2.2 Random Vancomycin Level 16.9 Digoxin Level 0.7 L Test 08/21/16 07:49 08/21/16 11:43 08/21/16 12:20 08/21/16 13:18 Bedside Glucose 142 130 117 Potassium Level 3.9 Test 08/21/16 14:44 Bedside Glucose 112 Medications Medications Current Medications Acetaminophen/ Hydrocodone Bitart ([place] (5/325)) 1 tab Q6H PRN PO MODERATE PAIN LEVEL 4-6; Start 08/14/16 at 14:30 Zolpidem Tartrate (Ambien) 5 mg QHS PRN PO SLEEP; Start 08/14/16 at 14:30 Acetaminophen (Tylenol Tab) 650 mg Q4 PRN PO PAIN AND OR ELEVATED TEMP; Start 08/14/16 at 14:30 Ascorbic Acid (Vitamin C) 500 mg DAILY PO Last administered on 08/20/16 09:13 ; Admin Dose 500 MG; Start 08/15/16 at 09:00 Aspirin (Aspirin) 81 mg DAILY PO Last administered on 08/21/16 11:03; Admin Dose 81 MG; Start 08/15/16 at 09:00 Bisacodyl (Dulcolax Supp) 10 mg DAILY PRN [place] BM; Start 08/14/16 at 14:30 Calcitriol (Rocaltrol) 0.25 mcg DAILY PO Last administered on 08/20/16 09:12; Admin Dose 0.25 MCG; Start 08/15/16 at 09:00 Loratadine (Claritin) 10 mg DAILY PO Last administered on 08/20/16 09:12; Admin Dose 10 MG; Start 08/15/16 at 09:00 Multivit/Ca Carb/ B Cmplx/FA/Prenat (Sarika-Nahomi) 1 tab DAILY PO Last administered on 08/20/16 09:12; Admin Dose 1 TAB; Start 08/15/16 at 09:00 Saccharomyces Boulardii (Florastor) 500 mg BID PO Last administered on 20:17; Admin Dose 500 MG; Start 08/14/16 at 21:00 Tamsulosin HCl (Flomax) 0.4 mg HS PO Last administered on 08/20/16 20:18; Admin Dose 0.4 MG; Start 08/14/16 at 21:00 Miscellaneous Information 1 ea NOTE XX ; Start 08/14/16 at 15:30 Glucose (Glutose) 15 gm Q15M PRN PO DECREASED GLUCOSE; Start 08/14/16 at 15:30 Glucose (Glutose) 22.5 gm Q15M PRN PO DECREASED GLUCOSE; Start 08/14/16 at 15:30 Dextrose (D50w Syringe) 25 ml Q15M PRN IV DECREASED GLUCOSE; Start 08/14/16 at 15:30 Dextrose (D50w Syringe) 50 ml Q15M PRN IV DECREASED GLUCOSE Last administered on 08/17/16 21:14; Admin Dose 50 ML; Start 08/14/16 at 15:30 Glucagon (Glucagen) 1 mg Q15M PRN IM DECREASED GLUCOSE; Start 08/14/16 at 15:30 Glucose 15 gm 15 gm Q15M PRN BUCCAL DECREASED GLUCOSE; Start 08/14/16 at 15:30 Piperacillin Sod/ Tazobactam Sod (Zosyn 2.25gm/ 50ml (Pmx)) 50 ml @ 100 mls/hr Q12 IVPB Last administered on 08/21/16 09:23; Admin Dose 100 MLS/HR; Start 08/14/16 at 21:00 Diagnostic Test (Pha) (Accu-Chek) 1 ea 02 XX ; Start 08/16/16 at 02:00 Ondansetron HCl (Zofran Inj) 4 mg Q4H PRN IV NAUSEA AND/OR VOMITING Last administered on 08/16/16 09:23; Admin Dose 4 MG; Start 08/16/16 at 09:30 Ondansetron HCl (Zofran Odt) 4 mg Q6H PRN ODT NAUSEA; Start 08/16/16 at 09:30 Lactobacillus Acidophilus (Florajen3 Capsule) 1 each BID PO Last administered on 08/20/16 20:17; Admin Dose 1 EACH; Start 08/17/16 at 09:00 Atorvastatin Calcium (Lipitor) 10 mg QHS PO Last administered on 08/20/16 20: 18; Admin Dose 10 MG; Start 08/17/16 at 21:00 Clopidogrel Bisulfate (plaVIX) 75 mg DAILY PO Last administered on 08/21/16 11 :03; Admin Dose 75 MG; Start 08/18/16 at 09:00 Insulin Glargine (Lantus) 14 unit QHS SC Last administered on 08/20/16 20:30; Admin Dose 14 UNIT; Start 08/18/16 at 21:00 Metoprolol Tartrate 37.5 mg 37.5 mg BID PO Last administered on 08/21/16 11:04 ; Admin Dose 37.5 MG; Start 08/20/16 at 10:00 Vancomycin HCl (Vancocin) 250 ml @ 125 mls/hr Q96H IVPB ; Start 08/21/16 at 22: 00 CORIE ROSA DPM Aug 21, 2016 15:18
--- NOTE | 2016-08-21 15:20 | PN ---
Date/Time of Note Date/Time of Note DATE: 08/21/16 TIME: 14:51 Assessment/Plan VTE Prophylaxis VTE Prophylaxis Intervention: other VTE Contraindication Reason: amputee Lines/Catheters IV Catheter Type (from [facility]): [facility] Urinary Cath still in place: No Assessment/Plan Chief Complaint/Hosp Course 1. ESRD on maintenance hemodialysis M [facility] . He had a hemodialysis treatment this morning. He is now in the recovery room in preparation for a right foot surgery to amputate the fourth toe that is gangrenous. I came to see the patient in the recovery room and I found him to have an altered mental status. He also has a left facial weakness and left arm weakness. His speech is slurred. I was concerned that he had a stroke . I called a code stroke. I spoke to the nurse on the floor, Ara, who was caring for the patient this morning and she said that he was not altered and was able to swallow his pills this morning. I also spoke with Dr. Lord , who saw the patient around 11 AM this morning. He thought that the patient was a little lethargic but he seemed to be speaking normally. The patient did not have a facial weakness at the time that Dr Lord saw the patient this morning . The patient had a CAT scan of the head today which showed a right frontal lobe stroke in the operculum. This would explain his symptoms of left-sided facial weakness left arm weakness and slurred speech. As part of the allen stroke we did have a teleneurologist consult on the patient. She recommended at the time that we do not give the patient TPA in view of the vague time line and the fact that he had evidence of a completed stroke on the CAT scan. I revisited the patient at 6 PM today. The patient is lethargic however he is awake and is able to respond. I told the patient that he had a stroke. We had a discussion about this. I asked the patient what his wishes would be if he were to have a catastrophic event such as a cardiac arrest or trouble breathing. I asked him would he want to be kept alive on machines. He shook his head and said no. He said that this was the way his father was kept alive and he did not want that. I spoke to the patient's daughter Yvonne Pierce .I informed her that her father had a stroke today. I told her that he had the deficits mentioned above. I told her that he wanted to be a DNR and she agreed that this would be what he would want. I am making the patient a DNR today. I also discussed with her about continuing hemodialysis. For now we will continue hemodialysis treatments and have further discussions at a later time. She brought up the possibility of hospice and I told her that we would revisit this in several days. She was comfortable with that plan. I told her my goal at this point would be to keep him comfortable. She was in agreement with this plan. 2. CAD he has had NSTEMI , he had a coronary angiogram and had 2 stents placed in the LAD. He is now on aspirin and Plavix. 3. IDDM , his blood sugars have been low. I will decrease his dose of Lantus insulin. 4. PAD , gangrene of R foot 4th toe . He was scheduled for surgery today however he has altered mental status and some neurologic deficits and we canceled the surgery. 5. cellulitis of R lower leg , improving on antibiotics. 6. postural hypotension . 7. Atrial fib/flutter, new onset , I plan to start him on Eliquis 2.5 mg twice a day after surgery tomorrow 8. Depression, this patient is now depressed because of his overwhelming medical condition. He is not usually a depressed person. I did speak to him about the possibility of seeing either a psychologist or psychiatrist. He refuses. I also asked him about taking an antidepressant. He refuses. I understand his situation. We will continue to treat him as we are. doing . I will offer supportive care as needed. Problems: Subjective 24 Hr Interval Summary Free Text/Dictation Patient is now in the recovery room in preparation for right foot surgery. He is lethargic and has some slurred speech. He also looks like he has a left facial droop. Respiratory: no complaints Cardiovascular: no complaints Gastrointestinal: no complaints Neurologic: focal-weakness Exam/Review of Systems Vital Signs Vitals Vital Signs Date Time Temp Pulse Resp B/P Pulse Ox O2 Delivery O2 Flow Rate FiO2 08/21/16 14:17 66 20 143/71 100 Nasal Cannula 2.0 08/21/16 13:27 98.0 Intake and Output 08/20/16 08/20/16 08/21/16 14:59 22:59 06:59 Intake Total 850 ml 450 ml Balance 850 ml 450 ml Exam He has a left below the knee amputation. His right foot shows a gangrenous fourth toe. Constitutional: alert, frail, oriented Head: normocephalic Respiratory: clear to auscultation, diminished breath sounds Cardiovascular: irregular rhythm Gastrointestinal: soft Results Result Diagram: 08/21/16 0515 08/21/16 1220 Results 24 hrs Laboratory Tests Test 08/20/16 17:06 08/20/16 20:21 08/21/16 02:40 08/21/16 05:15 Bedside Glucose 138 241 H 167 White Blood Count 11.6 H Red Blood Count 3.82 L Hemoglobin 11.2 L Hematocrit 35.3 L Mean Corpuscular Volume 92.4 Mean Corpuscular Hemoglobin 29.3 Mean Corpuscular Hemoglobin Concent 31.7 L Red Cell Distribution Width 15.9 H Platelet Count 172 Mean Platelet Volume 11.3 H Neutrophils % 76.4 Lymphocytes % 14.9 L Monocytes % 6.4 Eosinophils % 1.6 Basophils % 0.3 Nucleated Red Blood Cells % 0.0 Neutrophils # 8.9 H Lymphocytes # 1.7 Monocytes # 0.7 Eosinophils # 0.2 Basophils # 0.0 Nucleated Red Blood Cells # 0.0 Sodium Level 135 Potassium Level 5.6 H Chloride Level 98 Carbon Dioxide Level 26 Anion Gap 17 H Blood Urea Nitrogen 68 H Creatinine 6.32 H Glucose Level 122 # Calcium Level 7.7 L Phosphorus Level 6.9 H Magnesium Level 2.2 Random Vancomycin Level 16.9 Digoxin Level 0.7 L Test 08/21/16 07:49 08/21/16 11:43 08/21/16 12:20 08/21/16 13:18 Bedside Glucose 142 130 117 Potassium Level 3.9 Test 08/21/16 14:44 Bedside Glucose 112 Medications Medications Current Medications Acetaminophen/ Hydrocodone Bitart ([place] (5/325)) 1 tab Q6H PRN PO MODERATE PAIN LEVEL 4-6; Start 08/14/16 at 14:30 Zolpidem Tartrate (Ambien) 5 mg QHS PRN PO SLEEP; Start 08/14/16 at 14:30 Acetaminophen (Tylenol Tab) 650 mg Q4 PRN PO PAIN AND OR ELEVATED TEMP; Start 08/14/16 at 14:30 Ascorbic Acid (Vitamin C) 500 mg DAILY PO Last administered on 08/20/16 09:13 ; Admin Dose 500 MG; Start 08/15/16 at 09:00 Aspirin (Aspirin) 81 mg DAILY PO Last administered on 08/21/16 11:03; Admin Dose 81 MG; Start 08/15/16 at 09:00 Bisacodyl (Dulcolax Supp) 10 mg DAILY PRN [place] BM; Start 08/14/16 at 14:30 Calcitriol (Rocaltrol) 0.25 mcg DAILY PO Last administered on 08/20/16 09:12; Admin Dose 0.25 MCG; Start 08/15/16 at 09:00 Loratadine (Claritin) 10 mg DAILY PO Last administered on 08/20/16 09:12; Admin Dose 10 MG; Start 08/15/16 at 09:00 Multivit/Ca Carb/ B Cmplx/FA/Prenat (Sarika-Nahomi) 1 tab DAILY PO Last administered on 08/20/16 09:12; Admin Dose 1 TAB; Start 08/15/16 at 09:00 Saccharomyces Boulardii (Florastor) 500 mg BID PO Last administered on 20:17; Admin Dose 500 MG; Start 08/14/16 at 21:00 Tamsulosin HCl (Flomax) 0.4 mg HS PO Last administered on 08/20/16 20:18; Admin Dose 0.4 MG; Start 08/14/16 at 21:00 Miscellaneous Information 1 ea NOTE XX ; Start 08/14/16 at 15:30 Glucose (Glutose) 15 gm Q15M PRN PO DECREASED GLUCOSE; Start 08/14/16 at 15:30 Glucose (Glutose) 22.5 gm Q15M PRN PO DECREASED GLUCOSE; Start 08/14/16 at 15:30 Dextrose (D50w Syringe) 25 ml Q15M PRN IV DECREASED GLUCOSE; Start 08/14/16 at 15:30 Dextrose (D50w Syringe) 50 ml Q15M PRN IV DECREASED GLUCOSE Last administered on 08/17/16 21:14; Admin Dose 50 ML; Start 08/14/16 at 15:30 Glucagon (Glucagen) 1 mg Q15M PRN IM DECREASED GLUCOSE; Start 08/14/16 at 15:30 Glucose 15 gm 15 gm Q15M PRN BUCCAL DECREASED GLUCOSE; Start 08/14/16 at 15:30 Piperacillin Sod/ Tazobactam Sod (Zosyn 2.25gm/ 50ml (Pmx)) 50 ml @ 100 mls/hr Q12 IVPB Last administered on 08/21/16 09:23; Admin Dose 100 MLS/HR; Start 08/14/16 at 21:00 Diagnostic Test (Pha) (Accu-Chek) 1 ea 02 XX ; Start 08/16/16 at 02:00 Ondansetron HCl (Zofran Inj) 4 mg Q4H PRN IV NAUSEA AND/OR VOMITING Last administered on 08/16/16 09:23; Admin Dose 4 MG; Start 08/16/16 at 09:30 Ondansetron HCl (Zofran Odt) 4 mg Q6H PRN ODT NAUSEA; Start 08/16/16 at 09:30 Lactobacillus Acidophilus (Florajen3 Capsule) 1 each BID PO Last administered on 08/20/16 20:17; Admin Dose 1 EACH; Start 08/17/16 at 09:00 Atorvastatin Calcium (Lipitor) 10 mg QHS PO Last administered on 08/20/16 20: 18; Admin Dose 10 MG; Start 08/17/16 at 21:00 Clopidogrel Bisulfate (plaVIX) 75 mg DAILY PO Last administered on 08/21/16 11 :03; Admin Dose 75 MG; Start 08/18/16 at 09:00 Insulin Glargine (Lantus) 14 unit QHS SC Last administered on 08/20/16 20:30; Admin Dose 14 UNIT; Start 08/18/16 at 21:00 Metoprolol Tartrate 37.5 mg 37.5 mg BID PO Last administered on 08/21/16 11:04 ; Admin Dose 37.5 MG; Start 08/20/16 at 10:00 Vancomycin HCl (Vancocin) 250 ml @ 125 mls/hr Q96H IVPB ; Start 08/21/16 at 22: 00 CELESTE BHATT MD Aug 21, 2016 15:04
[2016-08-21] MEDS: DEXTROSE 5%-0.45% NACL 1,000 ML IV SCH (15:45)
--- NOTE | 2016-08-21 15:47 | RADRPT ---
PROCEDURE: CT Brain without. CLINICAL INDICATION: Stroke. TECHNIQUE: A CT of the brain was performed on multidetector high-resolution CT scanner utilizing a xial sections from the skull base through the vertex without contrast. The scan was reviewed in sof t tissue brain and high frequency resolution bone algorithm windows. Images were reviewed on a high -resolution PACS workstation. One or more the following does reduction techniques were utilized: Aut omated exposure control, adjustment of the mA/ or kV according to patient's size, or use of iterativ e reconstruction technique. The exam CTDI = 45.01 mGy and the DLP = 720.23 mGy-cm. COMPARISON: None available. FINDINGS: There is hypoattenuated area in the region of the right frontal operculum and anterior right insula concerning for acute/recent infarct. The ventricles and sulci are mildly prominent indicative of volume loss. There is no intracranial he morrhage, mass effect or midline shift. No abnormal intra-axial or extra-axial fluid collections ar e seen. There are mild scattered foci of hypoattenuation in the periventricular, deep, and subcortical white matter, which are nonspecific in etiology but likely reflect chronic small vessel ischemic changes. Diffuse vascular calcifications are noted. The visualized paranasal sinuses are essentially clear. IMPRESSION: 1. Suspect an acute/recent infarct in right frontal operculum and anterior right insula. Please not e MRI is more sensitive for detection of acute ischemia and can be obtained as clinically warranted. 2. Mild chronic small vessel ischemic changes. Diffuse vascular calcifications. 3. Mild generalized cerebral volume loss. A call report was made and above findings were discussed and acknowledged by the nurse quilting supervisor BENJA Beard on 08/21/2016 3:38 PM to relay to Dr. NOVA ALONSO. RPTAT: HH .Guero Alejandre MD, MD Date Time Electronically viewed and signed by .Guero Alejandre MD, MD on 08/21/2016 15:47 .N/
[2016-08-21] MEDS ORDERED: DEXAMETHASONE 4 MG/ML 1 ML INJ ONE (15:51)
[2016-08-21] MEDS ORDERED: ONDANSETRON 4 MG INJ ONE (15:51)
[2016-08-21] MEDS ORDERED: FAMOTIDINE 20 MG INJ ONE (15:51)
[2016-08-21 16:28] LABS: ADD SCAN DIFF NO
[2016-08-21 16:31] LABS: BASOPHILS % 0.2 % (0.0-2.0); EOSINOPHILS # 0.1 10^3/ul (0.0-0.5); EOSINOPHILS % 1.1 % (0.0-7.0); HEMATOCRIT 35.2 % (42.0-52.0); HEMOGLOBIN 11.3 g/dl (14.0-18.0); LYMPHOCYTES # 1.3 10^3/ul (0.8-2.9); LYMPHOCYTES % 11.4 % (15.0-51.0); MEAN CORPUSCULAR HEMOGLOBIN 29.4 pg (29.0-33.0); MEAN CORPUSCULAR HGB CONC 32.1 g/dl (32.0-37.0); MEAN CORPUSCULAR VOLUME 91.7 fl (82.0-101.0); MEAN PLATELET VOLUME 10.7 fl (7.4-10.4); MONOCYTE # 0.7 10^3/ul (0.3-0.9); NEUTROPHIL # 9.1 10^3/ul (1.6-7.5); NEUTROPHILS % 80.9 % (39.0-77.0); PLATELET COUNT 184 10^3/UL (140-415); RED BLOOD COUNT 3.84 10^6/ul (4.70-6.10); RED CELL DISTRIBUTION WIDTH 15.8 % (11.5-14.5); WHITE BLOOD COUNT 11.2 10^3/ul (4.8-10.8)
[2016-08-21 16:34] LABS: INR 1.31; PROTIME 16.4 Sec (12.2-14.2); PT RATIO 1.3
[2016-08-21 16:35] LABS: PARTIAL THROMBOPLASTIN TIME 30.9 Sec (25.0-35.0)
[2016-08-21 16:40] LABS: CALCIUM 7.8 mg/dl (8.4-10.2); CREATININE 4.1 mg/dl (0.61-1.24); POTASSIUM 3.9 mmol/L (3.5-5.1)
--- NOTE | 2016-08-21 16:44 | RADRPT ---
PROCEDURE: XR Chest. CLINICAL INDICATION: Shortness of breath. Cerebrovascular accident. TECHNIQUE: Single frontal view. COMPARISON: 08/14/2016. FINDINGS: There is mild left basilar atelectasis or pneumonia. The lungs are otherwise clear. The heart is enlarged. There is calcification in the aorta consistent with atherosclerosis. There is no pleural effusion. There is no pneumothorax. IMPRESSION: 1. Mild left basilar atelectasis or pneumonia. 2. Cardiomegaly and atherosclerosis. RPTAT: QQ .Teo Serrano MD, MD Date Time Electronically viewed and signed by .Teo Serrano MD, MD on 08/21/2016 16:43 .R/
[2016-08-21 16:54] LABS: TROPONIN-I 1.42 ng/ml (0.00-0.12)
--- NOTE | 2016-08-21 17:26 | CONS ---
DATE OF ADMISSION: 08/18/2016 DATE OF CONSULTATION: 08/21/2016 CHIEF COMPLAINT: Left-sided weakness. HISTORY OF PRESENT ILLNESS: This patient has end-stage renal disease on dialysis, left BKA, severe diabetes and peripheral vascular disease who was on his way to the operating room today to have his right 4th toe amputation when the physician noted left face and arm weakness as well as lethargy. A telegraph office manager saw the patient at 11:00 in the morning and said the patient was lethargic. CT scan s howed a right frontal infarct. PHYSICAL EXAMINATION: NEUROLOGIC: Patient is lethargic but easily arousable in the office and readily follows commands. He has a left lower facial droop and stroke scale of 2. He has a left arm drift and stroke scale of 1. Total NIH stroke scale is 3. There are no other symptoms. Sensation appears to be intact. H alana also has some mild dysarthria. The total NIH stroke scale is 4. Head CT, as described above. ASSESSMENT AND PLAN: The patient has multiple medical problems with an unclear last known well time and evolved stroke already on CAT scan, though he is not a candidate for TPA given his outside the time window. Recommend to continue his aspirin and Plavix which he is already on for his cardiac st ents that are fresh and recommend permissive hypertension for the next 24 hours with systolic blood pressure goal of 100 to 200 and continue with statins. Dictated By: ROBERT LYNCH/NTS Conf#: [id number] DID#: [id number]
--- NOTE | 2016-08-21 19:20 | RADRPT ---
Vent Rate: 68 bpm RR Interval: 0 msec SC Interval: 0 msec QRS Duration: 82 msec QT Interval: 358 msec QTC Interval: 380 msec P-R-T [place]: 0 - 49 - 0 degrees Atrial flutter with 4:1 AV conduction Low voltage QRS ST amp; T wave abnormality, consider inferolateral ischemia Abnormal ECG Electronically Signed By: Avery Trinidad [id number]
[2016-08-21] MEDS: TAMSULOSIN (SR) 0.4 MG CAP PO SCH (21:00)
[2016-08-21] MEDS: INSULIN GLARGINE [LANtus] 3 ML PEN SC SCH (21:00)
[2016-08-21] MEDS: ATORVASTATIN 10 MG TAB PO SCH (21:00)
[2016-08-21] MEDS: VANCOMYCIN 1 GM in NS 250 ML IVPB SCH (21:56)
[2016-08-22] VITALS (9 sets, daily range): BP systolic 134–159; BP diastolic 68–73; PULSE 72–90; RESP 16–80
[2016-08-22] MEDS: ACCU-CHEK XX SCH (02:00)
--- NOTE | 2016-08-22 06:32 | CONS ---
Date/Time of Note Date/Time of Note DATE: 08/22/16 TIME: 06:19 Assessment/Plan Assessment/Plan Additional Assessment/Plan 70 yo male with multiple medical problems, admitted for right leg cellulitis, complicated with NSTEMI s/p stent placement and recent STROKE. Patient's planned surgical amputation of right 4th digit has been postpone given recent events during admission. No urgent need for surgical intervention at this time. Patient would need to have right 4th digit amputated. Surgical debridement can be scheduled pending medical clearance of recent stroke. Procedure most likely can be scheduled under local. Patient can have the procedure done as inpatient or outpatient basis. Recommend continuing with IV antibiotics. Daily dressing of right 4th digit and heel ulcers with betadine. Consultation Date/Type/Reason Admit Date/Time Aug 14, 2016 at 14:49 Initial Consult Date 08/15/16 Type of Consultation: cardiology Referring Provider: CELESTE BHATT MD 24 HR Interval Summary Free Text/Dictation Patient see this bedside this morning. He is more responsive than yesterday. He continues to have slurry speech. Unfortunately, he did suffer a stroke yesterday. He has some left side weakness and facial droopiness. Patient had plans for right foot 4th digit amputation last week 08/18 postponed given NSTEMI and 08/21 given recent stroke. Exam/Review of Systems Vital Signs Vitals Vital Signs Date Time Temp Pulse Resp B/P Pulse Ox O2 Delivery O2 Flow Rate FiO2 08/22/16 04:31 98.0 91 17 137/68 97 08/21/16 14:47 Nasal Cannula 2.0 Intake and Output 08/21/16 08/21/16 08/22/16 15:00 23:00 07:00 Intake Total 350 ml 150 ml 0 ml Output Total 2800 ml Balance -2450 ml 150 ml 0 ml Exam Right foot 4th dry stable gangrene of 4th digit. No drainage from the toe noted. Right posterior heel ulcer with no drainage noted. No proximal streaking of right foot or leg noted. Results Result Diagram: 08/21/16 1500 08/21/16 1500 Results 24 hrs Laboratory Tests Test 08/21/16 07:49 08/21/16 11:43 08/21/16 12:20 08/21/16 13:18 Bedside Glucose 142 130 117 Potassium Level 3.9 Test 08/21/16 14:44 08/21/16 15:00 08/21/16 17:03 08/21/16 20:18 Bedside Glucose 112 123 138 White Blood Count 11.2 H Red Blood Count 3.84 L Hemoglobin 11.3 L Hematocrit 35.2 L Mean Corpuscular Volume 91.7 Mean Corpuscular Hemoglobin 29.4 Mean Corpuscular Hemoglobin Concent 32.1 Red Cell Distribution Width 15.8 H Platelet Count 184 Mean Platelet Volume 10.7 H Neutrophils % 80.9 H Lymphocytes % 11.4 L Monocytes % 6.0 Eosinophils % 1.1 Basophils % 0.2 Nucleated Red Blood Cells % 0.0 Neutrophils # 9.1 H Lymphocytes # 1.3 Monocytes # 0.7 Eosinophils # 0.1 Basophils # 0.0 Nucleated Red Blood Cells # 0.0 Prothrombin Time 16.4 H Prothrombin Time Ratio 1.3 INR International Normalized Ratio 1.31 Activated Partial Thromboplast Time 30.9 Sodium Level 139 Potassium Level 3.9 Chloride Level 101 Carbon Dioxide Level 31 Anion Gap 11 Blood Urea Nitrogen 34 #H Creatinine 4.10 #H Glucose Level 95 Hemoglobin A1c 6.2 H Calcium Level 7.8 L Troponin I 1.420 *H Medications Medications Current Medications Acetaminophen/ Hydrocodone Bitart ([place] (5/325)) 1 tab Q6H PRN PO MODERATE PAIN LEVEL 4-6; Start 08/14/16 at 14:30 Zolpidem Tartrate (Ambien) 5 mg QHS PRN PO SLEEP; Start 08/14/16 at 14:30 Acetaminophen (Tylenol Tab) 650 mg Q4 PRN PO PAIN AND OR ELEVATED TEMP; Start 08/14/16 at 14:30 Ascorbic Acid (Vitamin C) 500 mg DAILY PO Last administered on 08/20/16 09:13 ; Admin Dose 500 MG; Start 08/15/16 at 09:00 Aspirin (Aspirin) 81 mg DAILY PO Last administered on 08/21/16 11:03; Admin Dose 81 MG; Start 08/15/16 at 09:00 Bisacodyl (Dulcolax Supp) 10 mg DAILY PRN [place] BM; Start 08/14/16 at 14:30 Calcitriol (Rocaltrol) 0.25 mcg DAILY PO Last administered on 08/20/16 09:12; Admin Dose 0.25 MCG; Start 08/15/16 at 09:00 Loratadine (Claritin) 10 mg DAILY PO Last administered on 08/20/16 09:12; Admin Dose 10 MG; Start 08/15/16 at 09:00 Multivit/Ca Carb/ B Cmplx/FA/Prenat (Sarika-Nahomi) 1 tab DAILY PO Last administered on 08/20/16 09:12; Admin Dose 1 TAB; Start 08/15/16 at 09:00 Saccharomyces Boulardii (Florastor) 500 mg BID PO Last administered on 20:17; Admin Dose 500 MG; Start 08/14/16 at 21:00 Tamsulosin HCl (Flomax) 0.4 mg HS PO Last administered on 08/20/16 20:18; Admin Dose 0.4 MG; Start 08/14/16 at 21:00 Miscellaneous Information 1 ea NOTE XX ; Start 08/14/16 at 15:30 Glucose (Glutose) 15 gm Q15M PRN PO DECREASED GLUCOSE; Start 08/14/16 at 15:30 Glucose (Glutose) 22.5 gm Q15M PRN PO DECREASED GLUCOSE; Start 08/14/16 at 15:30 Dextrose (D50w Syringe) 25 ml Q15M PRN IV DECREASED GLUCOSE; Start 08/14/16 at 15:30 Dextrose (D50w Syringe) 50 ml Q15M PRN IV DECREASED GLUCOSE Last administered on 08/17/16 21:14; Admin Dose 50 ML; Start 08/14/16 at 15:30 Glucagon (Glucagen) 1 mg Q15M PRN IM DECREASED GLUCOSE; Start 08/14/16 at 15:30 Glucose 15 gm 15 gm Q15M PRN BUCCAL DECREASED GLUCOSE; Start 08/14/16 at 15:30 Piperacillin Sod/ Tazobactam Sod (Zosyn 2.25gm/ 50ml (Pmx)) 50 ml @ 100 mls/hr Q12 IVPB Last administered on 08/21/16 20:20; Admin Dose 100 MLS/HR; Start 08/14/16 at 21:00 Diagnostic Test (Pha) (Accu-Chek) 1 ea 02 XX ; Start 08/16/16 at 02:00 Ondansetron HCl (Zofran Inj) 4 mg Q4H PRN IV NAUSEA AND/OR VOMITING Last administered on 08/16/16 09:23; Admin Dose 4 MG; Start 08/16/16 at 09:30 Ondansetron HCl (Zofran Odt) 4 mg Q6H PRN ODT NAUSEA; Start 08/16/16 at 09:30 Lactobacillus Acidophilus (Florajen3 Capsule) 1 each BID PO Last administered on 08/20/16 20:17; Admin Dose 1 EACH; Start 08/17/16 at 09:00 Atorvastatin Calcium (Lipitor) 10 mg QHS PO Last administered on 08/21/16 21: 00; Admin Dose 10 MG; Start 08/17/16 at 21:00 Clopidogrel Bisulfate (plaVIX) 75 mg DAILY PO Last administered on 08/21/16 11 :03; Admin Dose 75 MG; Start 08/18/16 at 09:00 Insulin Glargine (Lantus) 14 unit QHS SC Last administered on 08/20/16 20:30; Admin Dose 14 UNIT; Start 08/18/16 at 21:00 Metoprolol Tartrate 37.5 mg 37.5 mg BID PO Last administered on 08/21/16 11:04 ; Admin Dose 37.5 MG; Start 08/20/16 at 10:00 Vancomycin HCl 250 ml @ 125 mls/hr Q96H IVPB Last administered on 08/21/16 21 :56; Admin Dose 125 MLS/HR; Start 08/21/16 at 22:00 Dextrose/Sodium Chloride (D5-1/2ns) 1,000 ml @ 60 mls/hr [id number] IV Last administered on 08/21/16 15:45; Admin Dose 60 MLS/HR; Start 08/21/16 at 15:30 Morphine Sulfate (morphine) 1 mg Q2H PRN IV PAIN; Start 08/21/16 at 19:00 CORIE ROSA DPM Aug 22, 2016 06:31
[2016-08-22 07:10] LABS: ADD SCAN DIFF NO
--- NOTE | 2016-08-22 07:11 | CONS ---
Date/Time of Note Date/Time of Note DATE: 08/22/16 TIME: 07:07 Assessment/Plan Assessment/Plan Chief Complaint/Hosp Course 1) R 4th toe gangrene and RLE cellulitis awaits angiography and amputation can likely switch to po antibiotics post amputation continue with vanco/zosyn at present 08/18 - stable on vanco/zosyn, s/p cardiac stenting pt awaits cardiac clearance prior to proceeding with definitive surgery to RLE 08/19 - pt to set surgery on wednesday continue with vanco/zosyn will likely switch to oral antibiotics soon after surgery for a short period of time 08/21 - no surgery due to new CVA with slurred speech and asymmetry of mouth/face continue with vanco/zosyn 2) CoNS in blood only one in four bottles, likely this represents contamination and no need for treatment 3) ESRD to get HD today 4)DM 5) diarrhea stools studies have been negative change probiotic to include multiple types of bacteria 6) CVA 08/22 - just prior to surgery pt was noted to have slurred speech and L facial dropping CT head confirms new R acute infarct Problems: Consultation Date/Type/Reason Admit Date/Time Aug 14, 2016 at 14:49 Initial Consult Date 08/15/16 Type of Consultation: ID Referring Provider: CELESTE BHATT MD 24 HR Interval Summary Free Text/Dictation pt is lethargic face does look asymmetrical surgery was delayed due to new CVA Exam/Review of Systems Vital Signs Vitals Vital Signs Date Time Temp Pulse Resp B/P Pulse Ox O2 Delivery O2 Flow Rate FiO2 08/22/16 04:31 98.0 91 17 137/68 97 08/21/16 14:47 Nasal Cannula 2.0 Intake and Output 08/21/16 08/21/16 08/22/16 15:00 23:00 07:00 Intake Total 350 ml 150 ml 0 ml Output Total 2800 ml Balance -2450 ml 150 ml 0 ml Exam Constitutional: other (pt is lethargic and hard to evaluate his speech ) Head: normocephalic Eyes: nl sclera ENMT: mucosa pink and moist, other (when pt opens mouth for exam it is asymmetrical) Respiratory: clear to auscultation Cardiovascular: regular rate and rhythm Gastrointestinal: non-tender, soft Extremities: other (R ankle bandaged, no redness to calf) Results Result Diagram: 08/21/16 1500 08/21/16 1500 Results 24 hrs Laboratory Tests Test 08/21/16 07:49 08/21/16 11:43 08/21/16 12:20 08/21/16 13:18 Bedside Glucose 142 130 117 Potassium Level 3.9 Test 08/21/16 14:44 08/21/16 15:00 08/21/16 17:03 08/21/16 20:18 Bedside Glucose 112 123 138 White Blood Count 11.2 H Red Blood Count 3.84 L Hemoglobin 11.3 L Hematocrit 35.2 L Mean Corpuscular Volume 91.7 Mean Corpuscular Hemoglobin 29.4 Mean Corpuscular Hemoglobin Concent 32.1 Red Cell Distribution Width 15.8 H Platelet Count 184 Mean Platelet Volume 10.7 H Neutrophils % 80.9 H Lymphocytes % 11.4 L Monocytes % 6.0 Eosinophils % 1.1 Basophils % 0.2 Nucleated Red Blood Cells % 0.0 Neutrophils # 9.1 H Lymphocytes # 1.3 Monocytes # 0.7 Eosinophils # 0.1 Basophils # 0.0 Nucleated Red Blood Cells # 0.0 Prothrombin Time 16.4 H Prothrombin Time Ratio 1.3 INR International Normalized Ratio 1.31 Activated Partial Thromboplast Time 30.9 Sodium Level 139 Potassium Level 3.9 Chloride Level 101 Carbon Dioxide Level 31 Anion Gap 11 Blood Urea Nitrogen 34 #H Creatinine 4.10 #H Glucose Level 95 Hemoglobin A1c 6.2 H Calcium Level 7.8 L Troponin I 1.420 *H Medications Medications Current Medications Acetaminophen/ Hydrocodone Bitart ([place] (5/325)) 1 tab Q6H PRN PO MODERATE PAIN LEVEL 4-6; Start 08/14/16 at 14:30 Zolpidem Tartrate (Ambien) 5 mg QHS PRN PO SLEEP; Start 08/14/16 at 14:30 Acetaminophen (Tylenol Tab) 650 mg Q4 PRN PO PAIN AND OR ELEVATED TEMP; Start 08/14/16 at 14:30 Ascorbic Acid (Vitamin C) 500 mg DAILY PO Last administered on 08/20/16 09:13 ; Admin Dose 500 MG; Start 08/15/16 at 09:00 Aspirin (Aspirin) 81 mg DAILY PO Last administered on 08/21/16 11:03; Admin Dose 81 MG; Start 08/15/16 at 09:00 Bisacodyl (Dulcolax Supp) 10 mg DAILY PRN [place] BM; Start 08/14/16 at 14:30 Calcitriol (Rocaltrol) 0.25 mcg DAILY PO Last administered on 08/20/16 09:12; Admin Dose 0.25 MCG; Start 08/15/16 at 09:00 Loratadine (Claritin) 10 mg DAILY PO Last administered on 08/20/16 09:12; Admin Dose 10 MG; Start 08/15/16 at 09:00 Multivit/Ca Carb/ B Cmplx/FA/Prenat (Sarika-Nahomi) 1 tab DAILY PO Last administered on 08/20/16 09:12; Admin Dose 1 TAB; Start 08/15/16 at 09:00 Saccharomyces Boulardii (Florastor) 500 mg BID PO Last administered on 20:17; Admin Dose 500 MG; Start 08/14/16 at 21:00 Tamsulosin HCl (Flomax) 0.4 mg HS PO Last administered on 08/20/16 20:18; Admin Dose 0.4 MG; Start 08/14/16 at 21:00 Miscellaneous Information 1 ea NOTE XX ; Start 08/14/16 at 15:30 Glucose (Glutose) 15 gm Q15M PRN PO DECREASED GLUCOSE; Start 08/14/16 at 15:30 Glucose (Glutose) 22.5 gm Q15M PRN PO DECREASED GLUCOSE; Start 08/14/16 at 15:30 Dextrose (D50w Syringe) 25 ml Q15M PRN IV DECREASED GLUCOSE; Start 08/14/16 at 15:30 Dextrose (D50w Syringe) 50 ml Q15M PRN IV DECREASED GLUCOSE Last administered on 08/17/16 21:14; Admin Dose 50 ML; Start 08/14/16 at 15:30 Glucagon (Glucagen) 1 mg Q15M PRN IM DECREASED GLUCOSE; Start 08/14/16 at 15:30 Glucose (Glutose) 15 gm Q15M PRN BUCCAL DECREASED GLUCOSE; Start 08/14/16 at 15: 30 Diagnostic Test (Pha) (Accu-Chek) 1 ea 02 XX ; Start 08/16/16 at 02:00 Ondansetron HCl (Zofran Inj) 4 mg Q4H PRN IV NAUSEA AND/OR VOMITING Last administered on 08/16/16 09:23; Admin Dose 4 MG; Start 08/16/16 at 09:30 Ondansetron HCl (Zofran Odt) 4 mg Q6H PRN ODT NAUSEA; Start 08/16/16 at 09:30 Lactobacillus Acidophilus (Florajen3 Capsule) 1 each BID PO Last administered on 08/20/16 20:17; Admin Dose 1 EACH; Start 08/17/16 at 09:00 Atorvastatin Calcium (Lipitor) 10 mg QHS PO Last administered on 08/21/16 21: 00; Admin Dose 10 MG; Start 08/17/16 at 21:00 Clopidogrel Bisulfate (plaVIX) 75 mg DAILY PO Last administered on 08/21/16 11 :03; Admin Dose 75 MG; Start 08/18/16 at 09:00 Insulin Glargine (Lantus) 14 unit QHS SC Last administered on 08/20/16 20:30; Admin Dose 14 UNIT; Start 08/18/16 at 21:00 Metoprolol Tartrate 37.5 mg 37.5 mg BID PO Last administered on 08/21/16 11:04 ; Admin Dose 37.5 MG; Start 08/20/16 at 10:00 Vancomycin HCl 250 ml @ 125 mls/hr Q96H IVPB Last administered on 08/21/16 21 :56; Admin Dose 125 MLS/HR; Start 08/21/16 at 22:00 Dextrose/Sodium Chloride (D5-1/2ns) 1,000 ml @ 60 mls/hr [id number] IV Last administered on 08/21/16 15:45; Admin Dose 60 MLS/HR; Start 08/21/16 at 15:30 Morphine Sulfate 1 mg 1 mg Q2H PRN IV PAIN; Start 08/21/16 at 19:00 Piperacillin Sod/ Tazobactam Sod (Zosyn 2.25gm/ 50ml (Pmx)) 50 ml @ 100 mls/hr Q8 IVPB ; Start 08/22/16 at 14:00 PEDRO PATRICK MD Aug 22, 2016 07:11
[2016-08-22 07:15] LABS: BASOPHILS % 0.2 % (0.0-2.0); EOSINOPHILS # 0.2 10^3/ul (0.0-0.5); EOSINOPHILS % 1.7 % (0.0-7.0); HEMATOCRIT 36.7 % (42.0-52.0); HEMOGLOBIN 11.7 g/dl (14.0-18.0); LYMPHOCYTES # 1.2 10^3/ul (0.8-2.9); LYMPHOCYTES % 10.8 % (15.0-51.0); MEAN CORPUSCULAR HEMOGLOBIN 29.4 pg (29.0-33.0); MEAN CORPUSCULAR HGB CONC 31.9 g/dl (32.0-37.0); MEAN CORPUSCULAR VOLUME 92.2 fl (82.0-101.0); MEAN PLATELET VOLUME 10.5 fl (7.4-10.4); MONOCYTE # 0.7 10^3/ul (0.3-0.9); MONOCYTES % 6.4 % (0.0-11.0); NEUTROPHIL # 9.1 10^3/ul (1.6-7.5); NEUTROPHILS % 80.5 % (39.0-77.0); PLATELET COUNT 196 10^3/UL (140-415); RED BLOOD COUNT 3.98 10^6/ul (4.70-6.10); RED CELL DISTRIBUTION WIDTH 15.9 % (11.5-14.5); WHITE BLOOD COUNT 11.3 10^3/ul (4.8-10.8)
--- NOTE | 2016-08-22 07:32 | CONS ---
DATE OF ADMISSION: 08/18/2016 DATE OF CONSULTATION: REFERRING PHYSICIAN: Dr. Cullen Thank you for asking me to see the patient with you. HISTORY OF PRESENT ILLNESS: The patient is a 70-year-old who has as past medical history of end-sta ge renal disease, the patient on dialysis. The patient also has history of hypertension. He was ad mitted for vascular surgery for amputation; however, the patient while in his wait, had left face we akness, left arm weakness, slurred speech, difficulty with communication for which the patient was b rought to the floor for more evaluation and treatment. PAST MEDICAL HISTORY: In the form of hypertension, diabetes, pancreatitis, end-stage renal disease, hemodialysis Wednesday, Wednesday, Wednesday, bilateral lower extremity atherosclerosis and gangrene, reza betic neuropathy, diabetic retinopathy, UTI. PAST SURGICAL HISTORY: In the form of vasectomy, tonsillectomy, cholecystectomy, right eye cataract surgery. FAMILY HISTORY: Positive for congestive heart failure and coronary artery disease. SOCIAL HISTORY: Positive for smoking, currently denies tobacco, alcohol, or drug use. PHYSICAL EXAMINATION: GENERAL: The patient is alert, awake, following simple commands, looks drowsy and confused. CRANIAL NERVE EXAM: Cranial nerves II: Pupils equal on both sides and reactive to light. Cranial n erves III, IV, and : Extraocular muscles intact. No nystagmus. Cranial nerves V: Equal sensation to face. Cranial nerve VII: Decreased nasolabial fold on the left side. Cranial nerve VIII: Decr eased hearing bilaterally. Cranial nerve IX and X: Elevates palate. Cranial nerves XI: Elevates shoulder 5/5. Cranial nerve XII: Straight tongue. MOTOR: Left side with strength 4/5 left upper extremity. Left lower extremity with amputation. Ri ght side strength 5/5 with decreased hand solvent mixer on the right side with 4/5. Sensation decreased for gloves and sock for right touch and temperature. Coordination with [id number] test intact with weakness on the left side. HEART: Regular rate and rhythm. LUNGS: Equal breath sounds. ABDOMEN: Soft, relaxed, nondistended, no tenderness. ASSESSMENT AND PLAN: 1. This patient is a 70-year-old with acute onset of stroke. Follow up the patient with MRI of his brain. Due to the fact that the patient has aspirin and Plavix, I am going to order for him Aggren ox plus Plavix instead of aspirin for more stroke prophylaxis and follow up the patient with lipid p fox, maximize his statin, carotid Doppler, and 2-D echocardiogram. 2. Status post ____ secondary to diabetes. 3. ____ vascular disease for which the patient is scheduled for amputation. 4. Diabetes. Follow up the patient's hemoglobin A1c and sliding scale insulin. Optimize vascular s tatus which includes diet, nutrition, exercise, sugar control, blood pressure medication, antiplatel et. Again, thank you for asking me to see the patient with you. Dictated By: NJ PALACIOS MD NA/NTS Conf#: [id number] DID#: [id number]
[2016-08-22 07:35] LABS: CALCIUM 7.7 mg/dl (8.4-10.2); CREATININE 4.75 mg/dl (0.61-1.24); POTASSIUM 4.1 mmol/L (3.5-5.1)
[2016-08-22] MEDS: CREON (24K-76K-120K) 1 CAP PO SCH ×3 (07:55→16:55)
[2016-08-22] MEDS: CALCIUM ACETATE 667 MG CAP PO SCH ×3 (07:55→16:55)
[2016-08-22] MEDS: INSULIN ASPART [NOVOLOG] 3 ML PEN SC SCH ×4 (08:05→21:00)
[2016-08-22] MEDS: LORATADINE 10 MG TAB PO SCH (08:23)
[2016-08-22] MEDS: L ACIDOPHIL/B LACTIS/B LONGUM CAPSULE PO SCH ×2 (08:23→21:38)
[2016-08-22] MEDS: SACCHAROMYCES BOULARDII 250 MG CAP PO SCH ×2 (08:23→21:38)
[2016-08-22] MEDS: ASPIRIN 81 MG TAB PO SCH (08:23)
[2016-08-22] MEDS: MULTIVIT/CA CARB/B CMPLX/FA TAB PO SCH (08:24)
[2016-08-22] MEDS: CALCITRIOL 0.25 MCG CAP PO SCH (08:24)
[2016-08-22] MEDS: ASCORBIC ACID 500 MG TAB PO SCH (08:24)
[2016-08-22] MEDS: CLOPIDOGREL 75 MG TAB PO SCH (08:24)
[2016-08-22] MEDS: METOPROLOL 25 MG TAB PO SCH ×2 (08:25→21:38)
[2016-08-22] MEDS: ONDANSETRON 4 MG INJ IV PRN (09:34)
[2016-08-22] MEDS: DEXTROSE 5%-0.45% NACL 1,000 ML IV SCH (09:35)
[2016-08-22] MEDS: PIPER-TAZO 2.25 GM (PMX) 50 ML IVPB SCH ×2 (13:43→21:39)
--- NOTE | 2016-08-22 13:48 | CONS ---
Date/Time of Note Date/Time of Note DATE: 08/22/16 TIME: 13:44 Assessment/Plan Assessment/Plan Additional Assessment/Plan # Non-STEMI s/p PCI to LAD with SYDNI x 2 # Acute CVA # Gangrene # Atrial flutter - new onset # Chronic renal failure on dialysis. # Peripheral vascular disease status post left BKA, status post right fem-tib bypass, now with right toe gangrene. # Orthostatic hypotension. # Anemia of chronic disease. # Moderate aortic stenosis. # Hyperlipidemiacontrolled. # Type 2 diabetes. # Mild aortic regurgitation on echocardiography. # Benign prostatic hypertrophy # Right toe gangrene >> Can not hold Plavix or ASA now >> eventual anticoagulation given atrial flutter- d/w Dr Rhoades- will start Eliquis 2.5 BID after surgery. >> If ok with neuro and if debridement surgery will be further delayed- consider heparin or interim anticoagulation >> As needed Dig >> metoprolol for heart rate control >> will likely need plavix x 1 year, ASA x 1 month, and lifelong anticoagulation Consultation Date/Type/Reason Admit Date/Time Aug 14, 2016 at 14:49 Initial Consult Date 08/15/16 Type of Consultation: CARDIOLOGY Referring Provider: CELESTE RHOADES MD 24 HR Interval Summary Free Text/Dictation Pt is doing reasonably well. He did unfortunately sustain a stroke yday and thus did not undergo his debridement surgery. He is doing a little better today. NO CP Exam/Review of Systems Vital Signs Vitals Vital Signs Date Time Temp Pulse Resp B/P Pulse Ox O2 Delivery O2 Flow Rate FiO2 08/22/16 12:35 78 08/22/16 11:50 98.1 80 138/73 99 08/22/16 08:20 Nasal Cannula 2.0 Intake and Output 08/21/16 08/21/16 08/22/16 15:00 23:00 07:00 Intake Total 350 ml 150 ml 0 ml Output Total 2800 ml Balance -2450 ml 150 ml 0 ml Exam Constitutional: alert, oriented, well developed Psych: no complaints Head: normocephalic Eyes: nl conjunctiva ENMT: nl external ears & nose Respiratory: diminished breath sounds Cardiovascular: irregular rhythm, No S3, No edema Gastrointestinal: soft Musculoskeletal: nl extremities to inspection Neurological: focal weakness (left arm), other (facial droop L) Results Result Diagram: 08/22/16 0625 08/22/16 0625 Results 24 hrs Laboratory Tests Test 08/21/16 14:44 08/21/16 15:00 08/21/16 17:03 08/21/16 20:18 Bedside Glucose 112 123 138 White Blood Count 11.2 H Red Blood Count 3.84 L Hemoglobin 11.3 L Hematocrit 35.2 L Mean Corpuscular Volume 91.7 Mean Corpuscular Hemoglobin 29.4 Mean Corpuscular Hemoglobin Concent 32.1 Red Cell Distribution Width 15.8 H Platelet Count 184 Mean Platelet Volume 10.7 H Neutrophils % 80.9 H Lymphocytes % 11.4 L Monocytes % 6.0 Eosinophils % 1.1 Basophils % 0.2 Nucleated Red Blood Cells % 0.0 Neutrophils # 9.1 H Lymphocytes # 1.3 Monocytes # 0.7 Eosinophils # 0.1 Basophils # 0.0 Nucleated Red Blood Cells # 0.0 Prothrombin Time 16.4 H Prothrombin Time Ratio 1.3 INR International Normalized Ratio 1.31 Activated Partial Thromboplast Time 30.9 Sodium Level 139 Potassium Level 3.9 Chloride Level 101 Carbon Dioxide Level 31 Anion Gap 11 Blood Urea Nitrogen 34 #H Creatinine 4.10 #H Glucose Level 95 Hemoglobin A1c 6.2 H Calcium Level 7.8 L Troponin I 1.420 *H Test 08/22/16 06:25 08/22/16 07:58 08/22/16 11:59 White Blood Count 11.3 H Red Blood Count 3.98 L Hemoglobin 11.7 L Hematocrit 36.7 L Mean Corpuscular Volume 92.2 Mean Corpuscular Hemoglobin 29.4 Mean Corpuscular Hemoglobin Concent 31.9 L Red Cell Distribution Width 15.9 H Platelet Count 196 Mean Platelet Volume 10.5 H Neutrophils % 80.5 H Lymphocytes % 10.8 L Monocytes % 6.4 Eosinophils % 1.7 Basophils % 0.2 Nucleated Red Blood Cells % 0.0 Neutrophils # 9.1 H Lymphocytes # 1.2 Monocytes # 0.7 Eosinophils # 0.2 Basophils # 0.0 Nucleated Red Blood Cells # 0.0 Sodium Level 139 Potassium Level 4.1 Chloride Level 101 Carbon Dioxide Level 27 Anion Gap 15 Blood Urea Nitrogen 39 H Creatinine 4.75 H Glucose Level 125 Calcium Level 7.7 L Bedside Glucose 147 176 Medications Medications Current Medications Acetaminophen/ Hydrocodone Bitart ([place] (5/325)) 1 tab Q6H PRN PO MODERATE PAIN LEVEL 4-6; Start 08/14/16 at 14:30 Zolpidem Tartrate (Ambien) 5 mg QHS PRN PO SLEEP; Start 08/14/16 at 14:30 Acetaminophen (Tylenol Tab) 650 mg Q4 PRN PO PAIN AND OR ELEVATED TEMP; Start 08/14/16 at 14:30 Ascorbic Acid (Vitamin C) 500 mg DAILY PO Last administered on 08/20/16 09:13 ; Admin Dose 500 MG; Start 08/15/16 at 09:00 Aspirin (Aspirin) 81 mg DAILY PO Last administered on 08/21/16 11:03; Admin Dose 81 MG; Start 08/15/16 at 09:00 Bisacodyl (Dulcolax Supp) 10 mg DAILY PRN [place] BM; Start 08/14/16 at 14:30 Calcitriol (Rocaltrol) 0.25 mcg DAILY PO Last administered on 08/20/16 09:12; Admin Dose 0.25 MCG; Start 08/15/16 at 09:00 Loratadine (Claritin) 10 mg DAILY PO Last administered on 08/20/16 09:12; Admin Dose 10 MG; Start 08/15/16 at 09:00 Multivit/Ca Carb/ B Cmplx/FA/Prenat (Sarika-Nahomi) 1 tab DAILY PO Last administered on 08/20/16 09:12; Admin Dose 1 TAB; Start 08/15/16 at 09:00 Saccharomyces Boulardii (Florastor) 500 mg BID PO Last administered on 20:17; Admin Dose 500 MG; Start 08/14/16 at 21:00 Tamsulosin HCl (Flomax) 0.4 mg HS PO Last administered on 08/20/16 20:18; Admin Dose 0.4 MG; Start 08/14/16 at 21:00 Miscellaneous Information 1 ea NOTE XX ; Start 08/14/16 at 15:30 Glucose (Glutose) 15 gm Q15M PRN PO DECREASED GLUCOSE; Start 08/14/16 at 15:30 Glucose (Glutose) 22.5 gm Q15M PRN PO DECREASED GLUCOSE; Start 08/14/16 at 15:30 Dextrose (D50w Syringe) 25 ml Q15M PRN IV DECREASED GLUCOSE; Start 08/14/16 at 15:30 Dextrose (D50w Syringe) 50 ml Q15M PRN IV DECREASED GLUCOSE Last administered on 08/17/16 21:14; Admin Dose 50 ML; Start 08/14/16 at 15:30 Glucagon (Glucagen) 1 mg Q15M PRN IM DECREASED GLUCOSE; Start 08/14/16 at 15:30 Glucose (Glutose) 15 gm Q15M PRN BUCCAL DECREASED GLUCOSE; Start 08/14/16 at 15: 30 Diagnostic Test (Pha) (Accu-Chek) 1 ea 02 XX ; Start 08/16/16 at 02:00 Ondansetron HCl (Zofran Inj) 4 mg Q4H PRN IV NAUSEA AND/OR VOMITING Last administered on 08/22/16 09:34; Admin Dose 4 MG; Start 08/16/16 at 09:30 Ondansetron HCl (Zofran Odt) 4 mg Q6H PRN ODT NAUSEA; Start 08/16/16 at 09:30 Lactobacillus Acidophilus (Florajen3 Capsule) 1 each BID PO Last administered on 08/20/16 20:17; Admin Dose 1 EACH; Start 08/17/16 at 09:00 Atorvastatin Calcium (Lipitor) 10 mg QHS PO Last administered on 08/21/16 21: 00; Admin Dose 10 MG; Start 08/17/16 at 21:00 Clopidogrel Bisulfate (plaVIX) 75 mg DAILY PO Last administered on 08/21/16 11 :03; Admin Dose 75 MG; Start 08/18/16 at 09:00 Insulin Glargine (Lantus) 14 unit QHS SC Last administered on 08/20/16 20:30; Admin Dose 14 UNIT; Start 08/18/16 at 21:00 Metoprolol Tartrate 37.5 mg 37.5 mg BID PO Last administered on 08/21/16 11:04 ; Admin Dose 37.5 MG; Start 08/20/16 at 10:00 Vancomycin HCl 250 ml @ 125 mls/hr Q96H IVPB Last administered on 08/21/16 21 :56; Admin Dose 125 MLS/HR; Start 08/21/16 at 22:00 Dextrose/Sodium Chloride (D5-1/2ns) 1,000 ml @ 60 mls/hr [id number] IV Last administered on 08/22/16t 09:35; Admin Dose 60 MLS/HR; Start 08/21/16 at 15:30 Morphine Sulfate 1 mg 1 mg Q2H PRN IV PAIN; Start 08/21/16 at 19:00 Piperacillin Sod/ Tazobactam Sod (Zosyn 2.25gm/ 50ml (Pmx)) 50 ml @ 100 mls/hr Q8 IVPB ; Start 08/22/16 at 14:00 DUONG METCALF MD Aug 22, 2016 13:48
--- NOTE | 2016-08-22 15:14 | PN ---
Date/Time of Note Date/Time of Note DATE: 08/22/16 TIME: 15:03 Assessment/Plan VTE Prophylaxis VTE Prophylaxis Intervention: heparin Lines/Catheters IV [facility] [facility] Urinary Cath still in place: No Assessment/Plan Assessment/Plan 1. ESRD on maintenance hemodialysis [facility], last yesterday. 2. s/p CVA with left sided weakness. Failed swallow eval. Will start tube feeding. 3. CAD he has had NSTEMI , he had a coronary angiogram and had 2 stents placed in the LAD. He is now on aspirin and Plavix. 4. IDDM , his blood sugars have been low. I will decrease his dose of Lantus insulin. 5. PAD , gangrene of R foot 4th toe . Surgery cancelled due to the CVA 5. cellulitis of R lower leg , improving on antibiotics. 6. postural hypotension . 7. Atrial fib/flutter, new onset. Per cardiology. Subjective 24 Hr Interval Summary Free Text/Dictation The patient is alert and answering questions. His family is at the bedside Exam/Review of Systems Vital Signs Vitals Vital Signs Date Time Temp Pulse Resp B/P Pulse Ox O2 Delivery O2 Flow Rate FiO2 08/22/16 12:35 78 08/22/16 11:50 98.1 80 138/73 99 08/22/16 08:20 Nasal Cannula 2.0 Intake and Output 08/21/16 08/21/16 08/22/16 15:00 23:00 07:00 Intake Total 350 ml 150 ml 0 ml Output Total 2800 ml Balance -2450 ml 150 ml 0 ml Exam Constitutional: alert Neck: supple, No jvd Respiratory: clear to auscultation Cardiovascular: regular rate and rhythm Gastrointestinal: non-tender, soft Extremities: No edema Neurological: focal weakness (left sided weakness) Results Result Diagram: 08/22/16 0625 08/22/16 0625 Results 24 hrs Laboratory Tests Test 08/21/16 17:03 08/21/16 20:18 08/22/16 06:25 08/22/16 07:58 Bedside Glucose 123 138 147 White Blood Count 11.3 H Red Blood Count 3.98 L Hemoglobin 11.7 L Hematocrit 36.7 L Mean Corpuscular Volume 92.2 Mean Corpuscular Hemoglobin 29.4 Mean Corpuscular Hemoglobin Concent 31.9 L Red Cell Distribution Width 15.9 H Platelet Count 196 Mean Platelet Volume 10.5 H Neutrophils % 80.5 H Lymphocytes % 10.8 L Monocytes % 6.4 Eosinophils % 1.7 Basophils % 0.2 Nucleated Red Blood Cells % 0.0 Neutrophils # 9.1 H Lymphocytes # 1.2 Monocytes # 0.7 Eosinophils # 0.2 Basophils # 0.0 Nucleated Red Blood Cells # 0.0 Sodium Level 139 Potassium Level 4.1 Chloride Level 101 Carbon Dioxide Level 27 Anion Gap 15 Blood Urea Nitrogen 39 H Creatinine 4.75 H Glucose Level 125 Calcium Level 7.7 L Test 08/22/16 11:59 Bedside Glucose 176 Medications Medications Current Medications Acetaminophen/ Hydrocodone Bitart ([place] (5/325)) 1 tab Q6H PRN PO MODERATE PAIN LEVEL 4-6; Start 08/14/16 at 14:30 Zolpidem Tartrate (Ambien) 5 mg QHS PRN PO SLEEP; Start 08/14/16 at 14:30 Acetaminophen (Tylenol Tab) 650 mg Q4 PRN PO PAIN AND OR ELEVATED TEMP; Start 08/14/16 at 14:30 Ascorbic Acid (Vitamin C) 500 mg DAILY PO Last administered on 08/20/16 09:13 ; Admin Dose 500 MG; Start 08/15/16 at 09:00 Aspirin (Aspirin) 81 mg DAILY PO Last administered on 08/21/16 11:03; Admin Dose 81 MG; Start 08/15/16 at 09:00 Bisacodyl (Dulcolax Supp) 10 mg DAILY PRN [place] BM; Start 08/14/16 at 14:30 Calcitriol (Rocaltrol) 0.25 mcg DAILY PO Last administered on 08/20/16 09:12; Admin Dose 0.25 MCG; Start 08/15/16 at 09:00 Loratadine (Claritin) 10 mg DAILY PO Last administered on 08/20/16 09:12; Admin Dose 10 MG; Start 08/15/16 at 09:00 Multivit/Ca Carb/ B Cmplx/FA/Prenat (Sarika-Nahomi) 1 tab DAILY PO Last administered on 08/20/16 09:12; Admin Dose 1 TAB; Start 08/15/16 at 09:00 Saccharomyces Boulardii (Florastor) 500 mg BID PO Last administered on 20:17; Admin Dose 500 MG; Start 08/14/16 at 21:00 Tamsulosin HCl (Flomax) 0.4 mg HS PO Last administered on 08/20/16 20:18; Admin Dose 0.4 MG; Start 08/14/16 at 21:00 Miscellaneous Information 1 ea NOTE XX ; Start 08/14/16 at 15:30 Glucose (Glutose) 15 gm Q15M PRN PO DECREASED GLUCOSE; Start 08/14/16 at 15:30 Glucose (Glutose) 22.5 gm Q15M PRN PO DECREASED GLUCOSE; Start 08/14/16 at 15:30 Dextrose (D50w Syringe) 25 ml Q15M PRN IV DECREASED GLUCOSE; Start 08/14/16 at 15:30 Dextrose (D50w Syringe) 50 ml Q15M PRN IV DECREASED GLUCOSE Last administered on 08/17/16 21:14; Admin Dose 50 ML; Start 08/14/16 at 15:30 Glucagon (Glucagen) 1 mg Q15M PRN IM DECREASED GLUCOSE; Start 08/14/16 at 15:30 Glucose (Glutose) 15 gm Q15M PRN BUCCAL DECREASED GLUCOSE; Start 08/14/16 at 15: 30 Diagnostic Test (Pha) (Accu-Chek) 1 ea 02 XX ; Start 08/16/16 at 02:00 Ondansetron HCl (Zofran Inj) 4 mg Q4H PRN IV NAUSEA AND/OR VOMITING Last administered on 08/22/16 09:34; Admin Dose 4 MG; Start 08/16/16 at 09:30 Ondansetron HCl (Zofran Odt) 4 mg Q6H PRN ODT NAUSEA; Start 08/16/16 at 09:30 Lactobacillus Acidophilus (Florajen3 Capsule) 1 each BID PO Last administered on 08/20/16 20:17; Admin Dose 1 EACH; Start 08/17/16 at 09:00 Atorvastatin Calcium (Lipitor) 10 mg QHS PO Last administered on 08/21/16 21: 00; Admin Dose 10 MG; Start 08/17/16 at 21:00 Clopidogrel Bisulfate (plaVIX) 75 mg DAILY PO Last administered on 08/21/16 11 :03; Admin Dose 75 MG; Start 08/18/16 at 09:00 Insulin Glargine (Lantus) 14 unit QHS SC Last administered on 08/20/16 20:30; Admin Dose 14 UNIT; Start 08/18/16 at 21:00 Metoprolol Tartrate 37.5 mg 37.5 mg BID PO Last administered on 08/21/16 11:04 ; Admin Dose 37.5 MG; Start 08/20/16 at 10:00 Vancomycin HCl 250 ml @ 125 mls/hr Q96H IVPB Last administered on 08/21/16 21 :56; Admin Dose 125 MLS/HR; Start 08/21/16 at 22:00 Dextrose/Sodium Chloride (D5-1/2ns) 1,000 ml @ 60 mls/hr [id number] IV Last administered on 08/22/16 09:35; Admin Dose 60 MLS/HR; Start 08/21/16 at 15:30 Morphine Sulfate 1 mg 1 mg Q2H PRN IV PAIN; Start 08/21/16 at 19:00 Piperacillin Sod/ Tazobactam Sod (Zosyn 2.25gm/ 50ml (Pmx)) 50 ml @ 100 mls/hr Q8 IVPB Last administered on 08/22/16 13:43; Admin Dose 100 MLS/HR; Start at 14:00 KEDAR CLARK MD Aug 22, 2016 15:13
[2016-08-22] MEDS: ATORVASTATIN 10 MG TAB PO SCH (21:38)
[2016-08-22] MEDS: TAMSULOSIN (SR) 0.4 MG CAP PO SCH (21:42)
[2016-08-22] MEDS: HEPARIN 5,000 UNIT/0.5 ML VIAL SC SCH (21:44)
[2016-08-22] MEDS: INSULIN GLARGINE [LANtus] 3 ML PEN SC SCH (21:45)
[2016-08-23] VITALS (12 sets, daily range): BP systolic 119–138; BP diastolic 59–72; PULSE 64–86; RESP 14–19
[2016-08-23] MEDS: ACCU-CHEK XX SCH (02:00)
[2016-08-23] MEDS: DEXTROSE 5%-0.45% NACL 1,000 ML IV SCH (02:06)
[2016-08-23] MEDS: PIPER-TAZO 2.25 GM (PMX) 50 ML IVPB SCH ×3 (05:29→22:23)
[2016-08-23 07:35] LABS: ADD SCAN DIFF NO
[2016-08-23] MEDS: INSULIN ASPART [NOVOLOG] 3 ML PEN SC SCH ×4 (07:40→20:28)
[2016-08-23 07:46] LABS: BASOPHILS % 0.2 % (0.0-2.0); EOSINOPHILS # 0.2 10^3/ul (0.0-0.5); EOSINOPHILS % 1.6 % (0.0-7.0); HEMATOCRIT 31.9 % (42.0-52.0); HEMOGLOBIN 10.3 g/dl (14.0-18.0); LYMPHOCYTES # 1.3 10^3/ul (0.8-2.9); MEAN CORPUSCULAR HEMOGLOBIN 29.8 pg (29.0-33.0); MEAN CORPUSCULAR HGB CONC 32.3 g/dl (32.0-37.0); MEAN CORPUSCULAR VOLUME 92.2 fl (82.0-101.0); MEAN PLATELET VOLUME 10.9 fl (7.4-10.4); MONOCYTE # 0.5 10^3/ul (0.3-0.9); MONOCYTES % 5.9 % (0.0-11.0); NEUTROPHIL # 7.1 10^3/ul (1.6-7.5); NEUTROPHILS % 77.9 % (39.0-77.0); PLATELET COUNT 183 10^3/UL (140-415); RED BLOOD COUNT 3.46 10^6/ul (4.70-6.10); RED CELL DISTRIBUTION WIDTH 15.9 % (11.5-14.5); WHITE BLOOD COUNT 9.2 10^3/ul (4.8-10.8)
[2016-08-23] MEDS: L ACIDOPHIL/B LACTIS/B LONGUM CAPSULE PO SCH ×2 (09:10→20:23)
[2016-08-23] MEDS: CALCITRIOL 0.25 MCG CAP PO SCH (09:10)
[2016-08-23] MEDS: CREON (24K-76K-120K) 1 CAP PO SCH ×3 (09:10→17:27)
[2016-08-23] MEDS: MULTIVIT/CA CARB/B CMPLX/FA TAB PO SCH (09:11)
[2016-08-23] MEDS: LORATADINE 10 MG TAB PO SCH (09:11)
[2016-08-23] MEDS: CALCIUM ACETATE 667 MG CAP PO SCH ×3 (09:11→17:26)
[2016-08-23] MEDS: SACCHAROMYCES BOULARDII 250 MG CAP PO SCH ×2 (09:11→20:24)
[2016-08-23] MEDS: CLOPIDOGREL 75 MG TAB PO SCH (09:11)
[2016-08-23] MEDS: ASPIRIN 81 MG TAB PO SCH (09:11)
[2016-08-23] MEDS: METOPROLOL 25 MG TAB PO SCH ×2 (09:12→20:24)
[2016-08-23] MEDS: ASCORBIC ACID 500 MG TAB PO SCH (09:12)
[2016-08-23] MEDS: HEPARIN 5,000 UNIT/0.5 ML VIAL SC SCH (09:20)
[2016-08-23 09:22] LABS: ALBUMIN 2.7 g/dl (3.3-4.9); ALBUMIN/GLOBULIN RATIO 1.08; CALCIUM 7.2 mg/dl (8.4-10.2); CREATININE 5.85 mg/dl (0.61-1.24); POTASSIUM 4.2 mmol/L (3.5-5.1); TOTAL PROTEIN 5.2 g/dl (6.1-8.1)
--- NOTE | 2016-08-23 10:29 | RADRPT ---
PROCEDURE: XR Chest. CLINICAL INDICATION: Respiratory distress. TECHNIQUE: AP view of the chest was performed. COMPARISON: None FINDINGS: There is a feeding tube with the tip likely within the distal stomach. This line can be used. Ther e is mild cardiomegaly with trace bilateral pleural effusions. IMPRESSION: Feeding tube likely with the tip within the distal stomach. This line can be used. Mild cardiomega ly, and trace bilateral pleural effusions. RPTAT: QQ. .Jacquie Mas MD, Date Time Electronically viewed and signed by .Jacquie Mas MD, on 08/22/2016 19:41 .F/
--- NOTE | 2016-08-23 10:57 | CONS ---
Date/Time of Note Date/Time of Note DATE: 08/23/16 TIME: 10:53 Assessment/Plan Assessment/Plan Additional Assessment/Plan # Non-STEMI s/p PCI to LAD with SYDNI x 2 # Acute CVA # Gangrene # Atrial flutter - new onset # Chronic renal failure on dialysis. # Peripheral vascular disease status post left BKA, status post right fem-tib bypass, now with right toe gangrene. # Orthostatic hypotension. # Anemia of chronic disease. # Moderate aortic stenosis. # Hyperlipidemiacontrolled. # Type 2 diabetes. # Mild aortic regurgitation on echocardiography. # Benign prostatic hypertrophy # Right toe gangrene >> Can not hold Plavix or ASA now >> eventual anticoagulation given atrial flutter- d/w Dr Rhoades- will start Eliquis 2.5 BID after surgery. >> recommend neurology consultation to determine if safe for heparin or interim anticoagulation >> As needed Dig >> metoprolol for heart rate control >> will likely need plavix x 1 year, ASA x 1 month, and lifelong anticoagulation Consultation Date/Type/Reason Admit Date/Time Aug 14, 2016 at 14:49 Initial Consult Date 08/15/16 Type of Consultation: CARDIOLOGY Referring Provider: CELESTE RHOADES MD 24 HR Interval Summary Free Text/Dictation NO new complaints. Pt with NG tube for feeding. He is sleepy/ Exam/Review of Systems Vital Signs Vitals Vital Signs Date Time Temp Pulse Resp B/P Pulse Ox O2 Delivery O2 Flow Rate FiO2 08/23/16 08:23 86 08/23/16 07:39 97.1 16 136/72 96 08/22/16 08:20 Nasal Cannula 2.0 Exam Constitutional: alert, oriented, other (appears more sleepy this am but communicating) Psych: no complaints Head: normocephalic Eyes: nl conjunctiva ENMT: nl external ears & nose, other (NG tube in place) Neck: supple Respiratory: clear to auscultation Cardiovascular: regular rate and rhythm Gastrointestinal: soft Musculoskeletal: nl extremities to inspection Results Result Diagram: 08/23/16 0630 08/23/16 0842 Results 24 hrs Laboratory Tests Test 08/22/16 11:59 08/22/16 21:43 08/23/16 06:30 08/23/16 07:35 Bedside Glucose 176 127 202 White Blood Count 9.2 Red Blood Count 3.46 L Hemoglobin 10.3 L Hematocrit 31.9 L Mean Corpuscular Volume 92.2 Mean Corpuscular Hemoglobin 29.8 Mean Corpuscular Hemoglobin Concent 32.3 Red Cell Distribution Width 15.9 H Platelet Count 183 Mean Platelet Volume 10.9 H Neutrophils % 77.9 H Lymphocytes % 14.0 L Monocytes % 5.9 Eosinophils % 1.6 Basophils % 0.2 Nucleated Red Blood Cells % 0.0 Neutrophils # 7.1 Lymphocytes # 1.3 Monocytes # 0.5 Eosinophils # 0.2 Basophils # 0.0 Nucleated Red Blood Cells # 0.0 Test 08/23/16 08:42 Sodium Level 133 L Potassium Level 4.2 Chloride Level 98 Carbon Dioxide Level 25 Anion Gap 14 Blood Urea Nitrogen 49 H Creatinine 5.85 H Glucose Level 161 Calcium Level 7.2 L Total Bilirubin 0.0 L Direct Bilirubin 0.00 Indirect Bilirubin 0.0 Aspartate Amino Transf (AST/SGOT) 37 Alanine Aminotransferase (ALT/SGPT) 47 Alkaline Phosphatase 196 H Total Protein 5.2 L Albumin 2.7 L Globulin 2.50 Albumin/Globulin Ratio 1.08 Medications Medications Current Medications Acetaminophen/ Hydrocodone Bitart ([place] (5/325)) 1 tab Q6H PRN PO MODERATE PAIN LEVEL 4-6; Start 08/14/16 at 14:30 Zolpidem Tartrate (Ambien) 5 mg QHS PRN PO SLEEP; Start 08/14/16 at 14:30 Acetaminophen (Tylenol Tab) 650 mg Q4 PRN PO PAIN AND OR ELEVATED TEMP; Start 08/14/16 at 14:30 Ascorbic Acid (Vitamin C) 500 mg DAILY PO Last administered on 08/23/16 09:12 ; Admin Dose 500 MG; Start 08/15/16 at 09:00 Aspirin (Aspirin) 81 mg DAILY PO Last administered on 08/23/16 09:11; Admin Dose 81 MG; Start 08/15/16 at 09:00 Bisacodyl (Dulcolax Supp) 10 mg DAILY PRN [place] BM; Start 08/14/16 at 14:30 Calcitriol (Rocaltrol) 0.25 mcg DAILY PO Last administered on 08/23/16 09:10; Admin Dose 0.25 MCG; Start 08/15/16 at 09:00 Loratadine (Claritin) 10 mg DAILY PO Last administered on 08/23/16 09:11; Admin Dose 10 MG; Start 08/15/16 at 09:00 Multivit/Ca Carb/ B Cmplx/FA/Prenat (Sarika-Nahomi) 1 tab DAILY PO Last administered on 08/23/16 09:11; Admin Dose 1 TAB; Start 08/15/16 at 09:00 Saccharomyces Boulardii (Florastor) 500 mg BID PO Last administered on 09:11; Admin Dose 500 MG; Start 08/14/16 at 21:00 Tamsulosin HCl (Flomax) 0.4 mg HS PO Last administered on 08/22/16 21:42; Admin Dose 0.4 MG; Start 08/14/16 at 21:00 Miscellaneous Information 1 ea NOTE XX ; Start 08/14/16 at 15:30 Glucose (Glutose) 15 gm Q15M PRN PO DECREASED GLUCOSE; Start 08/14/16 at 15:30 Glucose (Glutose) 22.5 gm Q15M PRN PO DECREASED GLUCOSE; Start 08/14/16 at 15:30 Dextrose (D50w Syringe) 25 ml Q15M PRN IV DECREASED GLUCOSE; Start 08/14/16 at 15:30 Dextrose (D50w Syringe) 50 ml Q15M PRN IV DECREASED GLUCOSE Last administered on 08/17/16 21:14; Admin Dose 50 ML; Start 08/14/16 at 15:30 Glucagon (Glucagen) 1 mg Q15M PRN IM DECREASED GLUCOSE; Start 08/14/16 at 15:30 Glucose (Glutose) 15 gm Q15M PRN BUCCAL DECREASED GLUCOSE; Start 08/14/16 at 15: 30 Diagnostic Test (Pha) (Accu-Chek) 1 ea 02 XX ; Start 08/16/16 at 02:00 Ondansetron HCl (Zofran Inj) 4 mg Q4H PRN IV NAUSEA AND/OR VOMITING Last administered on 08/22/16 09:34; Admin Dose 4 MG; Start 08/16/16 at 09:30 Ondansetron HCl (Zofran Odt) 4 mg Q6H PRN ODT NAUSEA; Start 08/16/16 at 09:30 Lactobacillus Acidophilus (Florajen3 Capsule) 1 each BID PO Last administered on 08/23/16 09:10; Admin Dose 1 EACH; Start 08/17/16 at 09:00 Atorvastatin Calcium (Lipitor) 10 mg QHS PO Last administered on 08/22/16 21: 38; Admin Dose 10 MG; Start 08/17/16 at 21:00 Clopidogrel Bisulfate (plaVIX) 75 mg DAILY PO Last administered on 08/23/16 09 :11; Admin Dose 75 MG; Start 08/18/16 at 09:00 Insulin Glargine (Lantus) 14 unit QHS SC Last administered on 08/22/16 21:45; Admin Dose 14 UNIT; Start 08/18/16 at 21:00 Metoprolol Tartrate 37.5 mg 37.5 mg BID PO Last administered on 08/23/16 09:12 ; Admin Dose 37.5 MG; Start 08/20/16 at 10:00 Vancomycin HCl 250 ml @ 125 mls/hr Q96H IVPB Last administered on 08/21/16 21 :56; Admin Dose 125 MLS/HR; Start 08/21/16 at 22:00 Dextrose/Sodium Chloride (D5-1/2ns) 1,000 ml @ 60 mls/hr [id number] IV Last administered on 08/23/16 02:06; Admin Dose 60 MLS/HR; Start 08/21/16 at 15:30 Morphine Sulfate 1 mg 1 mg Q2H PRN IV PAIN; Start 08/21/16 at 19:00 Piperacillin Sod/ Tazobactam Sod (Zosyn 2.25gm/ 50ml (Pmx)) 50 ml @ 100 mls/hr Q8 IVPB Last administered on 08/23/16 05:29; Admin Dose 100 MLS/HR; Start at 14:00 Heparin Sodium (Porcine) (Heparin (5000 Units/0.5 ml)) 5,000 unit BID SC Last administered on 08/23/16 09:20; Admin Dose 5,000 UNIT; Start 08/22/16 at 21:00 DUONG METCALF MD Aug 23, 2016 10:57
--- NOTE | 2016-08-23 11:32 | PN ---
Date/Time of Note Date/Time of Note DATE: 08/23/16 TIME: 11:28 Assessment/Plan VTE Prophylaxis VTE Prophylaxis Intervention: other Lines/Catheters IV [facility] Peripheral IV Urinary Cath still in place: No Assessment/Plan Chief Complaint/Hosp Course 1. ESRD on maintenance hemodialysis M W . HD tomorrow 2. s/p CVA with left sided weakness. Failed swallow eval. Now on TF 3. CAD he has had NSTEMI , he had a coronary angiogram and had 2 stents placed in the LAD. He is now on aspirin and Plavix. 4. IDDM , his blood sugars have been low. May need to increase insulin now that he is on TF 5. PAD , gangrene of R foot 4th toe . Surgery cancelled due to the CVA 5. cellulitis of R lower leg , improving on antibiotics. 6. postural hypotension . 7. Atrial fib/flutter, new onset. Start Eliquis low dose Problems: Subjective 24 Hr Interval Summary Free Text/Dictation Alert, no complaints. Exam/Review of Systems Vital Signs Vitals Vital Signs Date Time Temp Pulse Resp B/P Pulse Ox O2 Delivery O2 Flow Rate FiO2 08/23/16 11:11 97.8 65 14 119/61 98 08/22/16 08:20 Nasal Cannula 2.0 Exam Head: normocephalic Neck: supple Respiratory: clear to auscultation Cardiovascular: regular rate and rhythm Gastrointestinal: soft Extremities: No edema Results Result Diagram: 08/23/16 0630 08/23/16 0842 Results 24 hrs Laboratory Tests Test 08/22/16 11:59 08/22/16 21:43 08/23/16 06:30 08/23/16 07:35 Bedside Glucose 176 127 202 White Blood Count 9.2 Red Blood Count 3.46 L Hemoglobin 10.3 L Hematocrit 31.9 L Mean Corpuscular Volume 92.2 Mean Corpuscular Hemoglobin 29.8 Mean Corpuscular Hemoglobin Concent 32.3 Red Cell Distribution Width 15.9 H Platelet Count 183 Mean Platelet Volume 10.9 H Neutrophils % 77.9 H Lymphocytes % 14.0 L Monocytes % 5.9 Eosinophils % 1.6 Basophils % 0.2 Nucleated Red Blood Cells % 0.0 Neutrophils # 7.1 Lymphocytes # 1.3 Monocytes # 0.5 Eosinophils # 0.2 Basophils # 0.0 Nucleated Red Blood Cells # 0.0 Test 08/23/16 08:42 Sodium Level 133 L Potassium Level 4.2 Chloride Level 98 Carbon Dioxide Level 25 Anion Gap 14 Blood Urea Nitrogen 49 H Creatinine 5.85 H Glucose Level 161 Calcium Level 7.2 L Total Bilirubin 0.0 L Direct Bilirubin 0.00 Indirect Bilirubin 0.0 Aspartate Amino Transf (AST/SGOT) 37 Alanine Aminotransferase (ALT/SGPT) 47 Alkaline Phosphatase 196 H Total Protein 5.2 L Albumin 2.7 L Globulin 2.50 Albumin/Globulin Ratio 1.08 Medications Medications Current Medications Acetaminophen/ Hydrocodone Bitart ([place] (5/325)) 1 tab Q6H PRN PO MODERATE PAIN LEVEL 4-6; Start 08/14/16 at 14:30 Zolpidem Tartrate (Ambien) 5 mg QHS PRN PO SLEEP; Start 08/14/16 at 14:30 Acetaminophen (Tylenol Tab) 650 mg Q4 PRN PO PAIN AND OR ELEVATED TEMP; Start 08/14/16 at 14:30 Ascorbic Acid (Vitamin C) 500 mg DAILY PO Last administered on 08/23/16 09:12 ; Admin Dose 500 MG; Start 08/15/16 at 09:00 Aspirin (Aspirin) 81 mg DAILY PO Last administered on 08/23/16 09:11; Admin Dose 81 MG; Start 08/15/16 at 09:00 Bisacodyl (Dulcolax Supp) 10 mg DAILY PRN [place] BM; Start 08/14/16 at 14:30 Calcitriol (Rocaltrol) 0.25 mcg DAILY PO Last administered on 08/23/16 09:10; Admin Dose 0.25 MCG; Start 08/15/16 at 09:00 Loratadine (Claritin) 10 mg DAILY PO Last administered on 08/23/16 09:11; Admin Dose 10 MG; Start 08/15/16 at 09:00 Multivit/Ca Carb/ B Cmplx/FA/Prenat (Sarika-Nahomi) 1 tab DAILY PO Last administered on 08/23/16 09:11; Admin Dose 1 TAB; Start 08/15/16 at 09:00 Saccharomyces Boulardii (Florastor) 500 mg BID PO Last administered on 09:11; Admin Dose 500 MG; Start 08/14/16 at 21:00 Tamsulosin HCl (Flomax) 0.4 mg HS PO Last administered on 08/22/16 21:42; Admin Dose 0.4 MG; Start 08/14/16 at 21:00 Miscellaneous Information 1 ea NOTE XX ; Start 08/14/16 at 15:30 Glucose (Glutose) 15 gm Q15M PRN PO DECREASED GLUCOSE; Start 08/14/16 at 15:30 Glucose (Glutose) 22.5 gm Q15M PRN PO DECREASED GLUCOSE; Start 08/14/16 at 15:30 Dextrose (D50w Syringe) 25 ml Q15M PRN IV DECREASED GLUCOSE; Start 08/14/16 at 15:30 Dextrose (D50w Syringe) 50 ml Q15M PRN IV DECREASED GLUCOSE Last administered on 08/17/16 21:14; Admin Dose 50 ML; Start 08/14/16 at 15:30 Glucagon (Glucagen) 1 mg Q15M PRN IM DECREASED GLUCOSE; Start 08/14/16 at 15:30 Glucose (Glutose) 15 gm Q15M PRN BUCCAL DECREASED GLUCOSE; Start 08/14/16 at 15: 30 Diagnostic Test (Pha) (Accu-Chek) 1 ea 02 XX ; Start 08/16/16 at 02:00 Ondansetron HCl (Zofran Inj) 4 mg Q4H PRN IV NAUSEA AND/OR VOMITING Last administered on 08/22/16 09:34; Admin Dose 4 MG; Start 08/16/16 at 09:30 Ondansetron HCl (Zofran Odt) 4 mg Q6H PRN ODT NAUSEA; Start 08/16/16 at 09:30 Lactobacillus Acidophilus (Florajen3 Capsule) 1 each BID PO Last administered on 08/23/16 09:10; Admin Dose 1 EACH; Start 08/17/16 at 09:00 Atorvastatin Calcium (Lipitor) 10 mg QHS PO Last administered on 08/22/16 21: 38; Admin Dose 10 MG; Start 08/17/16 at 21:00 Clopidogrel Bisulfate (plaVIX) 75 mg DAILY PO Last administered on 08/23/16 09 :11; Admin Dose 75 MG; Start 08/18/16 at 09:00 Insulin Glargine (Lantus) 14 unit QHS SC Last administered on 08/22/16 21:45; Admin Dose 14 UNIT; Start 08/18/16 at 21:00 Metoprolol Tartrate 37.5 mg 37.5 mg BID PO Last administered on 08/23/16 09:12 ; Admin Dose 37.5 MG; Start 08/20/16 at 10:00 Vancomycin HCl 250 ml @ 125 mls/hr Q96H IVPB Last administered on 08/21/16 21 :56; Admin Dose 125 MLS/HR; Start 08/21/16 at 22:00 Dextrose/Sodium Chloride (D5-1/2ns) 1,000 ml @ 60 mls/hr [id number] IV Last administered on 08/23/16 02:06; Admin Dose 60 MLS/HR; Start 08/21/16 at 15:30 Morphine Sulfate 1 mg 1 mg Q2H PRN IV PAIN; Start 08/21/16 at 19:00 Piperacillin Sod/ Tazobactam Sod (Zosyn 2.25gm/ 50ml (Pmx)) 50 ml @ 100 mls/hr Q8 IVPB Last administered on 08/23/16 05:29; Admin Dose 100 MLS/HR; Start at 14:00 Heparin Sodium (Porcine) (Heparin (5000 Units/0.5 ml)) 5,000 unit BID SC Last administered on 08/23/16 09:20; Admin Dose 5,000 UNIT; Start 08/22/16 at 21:00 Non-Formulary Medication 1 ea BID NGT ; Start 08/23/16 at 21:00; Status KEDAR MENDOZA MD Aug 23, 2016 11:32
[2016-08-23] MEDS: APIXABAN 5 MG TABLET PO SCH ×2 (13:14→20:24)
[2016-08-23] MEDS: TAMSULOSIN (SR) 0.4 MG CAP PO SCH (20:23)
[2016-08-23] MEDS: ATORVASTATIN 10 MG TAB PO SCH (20:24)
[2016-08-23] MEDS: INSULIN GLARGINE [LANtus] 3 ML PEN SC SCH (20:30)
[2016-08-23] MEDS ORDERED: SPECIAL NON-STANDARD MEDICATION NGT SCH (21:00)
[2016-08-24] VITALS (14 sets, daily range): BP systolic 118–147; BP diastolic 64–80; PULSE 69–80; RESP 16–20
[2016-08-24] MEDS: ACCU-CHEK XX SCH (02:00)
[2016-08-24] MEDS: PIPER-TAZO 2.25 GM (PMX) 50 ML IVPB SCH ×4 (05:32→22:41)
--- NOTE | 2016-08-24 06:35 | CONS ---
Date/Time of Note Date/Time of Note DATE: 08/24/16 TIME: 06:28 Assessment/Plan Assessment/Plan Additional Assessment/Plan 70 yo male with multiple medical problems including ESRD, DM, PAD, CAD s/p stent placement and most recently stroke. Right leg cellulitis has resolved. Right 4th digit gangrene is dry and stable. No need for urgent surgical intervention at this time. Patient has started Eliquis. Right 4th digit surgical intervention can be schedule as outpatient vs inpatient pending medical clearance. As mentioned above no need for urgent surgical intervention given stable dry gangrene. Recommend continuing with Betadine dressing changes and IV antibiotics. Please contact me for any further questions. Consultation Date/Type/Reason Admit Date/Time Aug 14, 2016 at 14:49 Initial Consult Date 08/15/16 Type of Consultation: CARDIOLOGY Referring Provider: CELESTE BHATT MD 24 HR Interval Summary Free Text/Dictation Patient seen at bedside in no acute distress. He has failed swallow test and now on feeding tube. Patient has been started on Eliquis. Exam/Review of Systems Vital Signs Vitals Vital Signs Date Time Temp Pulse Resp B/P Pulse Ox O2 Delivery O2 Flow Rate FiO2 08/24/16 04:12 98.2 84 19 118/67 95 08/22/16 08:20 Nasal Cannula 2.0 Intake and Output 08/23/16 08/23/16 08/24/16 15:00 23:00 07:00 Intake Total 660 ml Output Total 150 ml Balance 510 ml Exam Right foot 4th digit dry stable gangrene with no drainage noted. Right heel ulceration with mixed fibrotic wound base. No acute signs of infection. Right leg cellulitis has resolved. Results Result Diagram: 08/23/16 0630 08/23/16 0842 Results 24 hrs Laboratory Tests Test 08/23/16 06:30 08/23/16 07:35 08/23/16 08:42 08/23/16 11:58 White Blood Count 9.2 Red Blood Count 3.46 L Hemoglobin 10.3 L Hematocrit 31.9 L Mean Corpuscular Volume 92.2 Mean Corpuscular Hemoglobin 29.8 Mean Corpuscular Hemoglobin Concent 32.3 Red Cell Distribution Width 15.9 H Platelet Count 183 Mean Platelet Volume 10.9 H Neutrophils % 77.9 H Lymphocytes % 14.0 L Monocytes % 5.9 Eosinophils % 1.6 Basophils % 0.2 Nucleated Red Blood Cells % 0.0 Neutrophils # 7.1 Lymphocytes # 1.3 Monocytes # 0.5 Eosinophils # 0.2 Basophils # 0.0 Nucleated Red Blood Cells # 0.0 Bedside Glucose 202 132 Sodium Level 133 L Potassium Level 4.2 Chloride Level 98 Carbon Dioxide Level 25 Anion Gap 14 Blood Urea Nitrogen 49 H Creatinine 5.85 H Glucose Level 161 Calcium Level 7.2 L Total Bilirubin 0.0 L Direct Bilirubin 0.00 Indirect Bilirubin 0.0 Aspartate Amino Transf (AST/SGOT) 37 Alanine Aminotransferase (ALT/SGPT) 47 Alkaline Phosphatase 196 H Total Protein 5.2 L Albumin 2.7 L Globulin 2.50 Albumin/Globulin Ratio 1.08 Test 08/23/16 17:26 08/23/16 20:27 Bedside Glucose 185 151 Medications Medications Current Medications Acetaminophen/ Hydrocodone Bitart ([place] (5/325)) 1 tab Q6H PRN PO MODERATE PAIN LEVEL 4-6; Start 08/14/16 at 14:30 Zolpidem Tartrate (Ambien) 5 mg QHS PRN PO SLEEP; Start 08/14/16 at 14:30 Acetaminophen (Tylenol Tab) 650 mg Q4 PRN PO PAIN AND OR ELEVATED TEMP; Start 08/14/16 at 14:30 Ascorbic Acid (Vitamin C) 500 mg DAILY PO Last administered on 08/23/16 09:12 ; Admin Dose 500 MG; Start 08/15/16 at 09:00 Aspirin (Aspirin) 81 mg DAILY PO Last administered on 08/23/16 09:11; Admin Dose 81 MG; Start 08/15/16 at 09:00 Bisacodyl (Dulcolax Supp) 10 mg DAILY PRN [place] BM; Start 08/14/16 at 14:30 Calcitriol (Rocaltrol) 0.25 mcg DAILY PO Last administered on 08/23/16 09:10; Admin Dose 0.25 MCG; Start 08/15/16 at 09:00 Loratadine (Claritin) 10 mg DAILY PO Last administered on 08/23/16 09:11; Admin Dose 10 MG; Start 08/15/16 at 09:00 Multivit/Ca Carb/ B Cmplx/FA/Prenat (Sarika-Nahomi) 1 tab DAILY PO Last administered on 6/18/17at 09:11; Admin Dose 1 TAB; Start 08/15/16 at 09:00 Saccharomyces Boulardii (Florastor) 500 mg BID PO Last administered on 20:24; Admin Dose 500 MG; Start 08/14/16 at 21:00 Tamsulosin HCl (Flomax) 0.4 mg HS PO Last administered on 08/23/16 20:23; Admin Dose 0.4 MG; Start 08/14/16 at 21:00 Miscellaneous Information 1 ea NOTE XX ; Start 08/14/16 at 15:30 Glucose (Glutose) 15 gm Q15M PRN PO DECREASED GLUCOSE; Start 08/14/16 at 15:30 Glucose (Glutose) 22.5 gm Q15M PRN PO DECREASED GLUCOSE; Start 08/14/16 at 15:30 Dextrose (D50w Syringe) 25 ml Q15M PRN IV DECREASED GLUCOSE; Start 08/14/16 at 15:30 Dextrose (D50w Syringe) 50 ml Q15M PRN IV DECREASED GLUCOSE Last administered on 08/17/16 21:14; Admin Dose 50 ML; Start 08/14/16 at 15:30 Glucagon (Glucagen) 1 mg Q15M PRN IM DECREASED GLUCOSE; Start 08/14/16 at 15:30 Glucose (Glutose) 15 gm Q15M PRN BUCCAL DECREASED GLUCOSE; Start 08/14/16 at 15: 30 Diagnostic Test (Pha) (Accu-Chek) 1 ea 02 XX ; Start 08/16/16 at 02:00 Ondansetron HCl (Zofran Inj) 4 mg Q4H PRN IV NAUSEA AND/OR VOMITING Last administered on 08/22/16 09:34; Admin Dose 4 MG; Start 08/16/16 at 09:30 Ondansetron HCl (Zofran Odt) 4 mg Q6H PRN ODT NAUSEA; Start 08/16/16 at 09:30 Lactobacillus Acidophilus (Florajen3 Capsule) 1 each BID PO Last administered on 08/23/16 20:23; Admin Dose 1 EACH; Start 08/17/16 at 09:00 Atorvastatin Calcium (Lipitor) 10 mg QHS PO Last administered on 08/23/16 20: 24; Admin Dose 10 MG; Start 08/17/16 at 21:00 Clopidogrel Bisulfate (plaVIX) 75 mg DAILY PO Last administered on 08/23/16 09 :11; Admin Dose 75 MG; Start 08/18/16 at 09:00 Insulin Glargine (Lantus) 14 unit QHS SC Last administered on 08/23/16 20:30; Admin Dose 14 UNIT; Start 08/18/16 at 21:00 Metoprolol Tartrate 37.5 mg 37.5 mg BID PO Last administered on 08/23/16 20:24 ; Admin Dose 37.5 MG; Start 08/20/16 at 10:00 Vancomycin HCl (Vancocin) 250 ml @ 125 mls/hr Q96H IVPB Last administered on 21:56; Admin Dose 125 MLS/HR; Start 08/21/16 at 22:00 Morphine Sulfate 1 mg 1 mg Q2H PRN IV PAIN; Start 08/21/16 at 19:00 Piperacillin Sod/ Tazobactam Sod (Zosyn 2.25gm/ 50ml (Pmx)) 50 ml @ 100 mls/hr Q8 IVPB Last administered on 08/24/16 05:32; Admin Dose 100 MLS/HR; Start at 14:00 Apixaban (Eliquis) 2.5 mg BID PO Last administered on 08/23/16 20:24; Admin Dose 2.5 MG; Start 08/23/16 at 11:30 CORIE ROSA DPM Aug 24, 2016 06:35
[2016-08-24 06:46] LABS: ADD SCAN DIFF NO
[2016-08-24 06:57] LABS: BASOPHILS % 0.4 % (0.0-2.0); EOSINOPHILS # 0.2 10^3/ul (0.0-0.5); EOSINOPHILS % 1.8 % (0.0-7.0); HEMATOCRIT 36.7 % (42.0-52.0); HEMOGLOBIN 11.8 g/dl (14.0-18.0); LYMPHOCYTES # 1.4 10^3/ul (0.8-2.9); LYMPHOCYTES % 13.1 % (15.0-51.0); MEAN CORPUSCULAR HEMOGLOBIN 29.6 pg (29.0-33.0); MEAN CORPUSCULAR HGB CONC 32.2 g/dl (32.0-37.0); MEAN CORPUSCULAR VOLUME 92.2 fl (82.0-101.0); MEAN PLATELET VOLUME 10.5 fl (7.4-10.4); MONOCYTE # 0.6 10^3/ul (0.3-0.9); MONOCYTES % 5.2 % (0.0-11.0); NEUTROPHIL # 8.6 10^3/ul (1.6-7.5); NEUTROPHILS % 78.9 % (39.0-77.0); PLATELET COUNT 207 10^3/UL (140-415); RED BLOOD COUNT 3.98 10^6/ul (4.70-6.10); RED CELL DISTRIBUTION WIDTH 15.8 % (11.5-14.5); WHITE BLOOD COUNT 10.9 10^3/ul (4.8-10.8)
--- NOTE | 2016-08-24 07:35 | CONS ---
Date/Time of Note Date/Time of Note DATE: 08/24/16 TIME: 07:32 Assessment/Plan Assessment/Plan Chief Complaint/Hosp Course 1) R 4th toe gangrene and RLE cellulitis awaits angiography and amputation can likely switch to po antibiotics post amputation continue with vanco/zosyn at present 08/18 - stable on vanco/zosyn, s/p cardiac stenting pt awaits cardiac clearance prior to proceeding with definitive surgery to RLE 08/19 - pt to set surgery on wednesday continue with vanco/zosyn will likely switch to oral antibiotics soon after surgery for a short period of time 08/21 - no surgery due to new CVA with slurred speech and asymmetry of mouth/face continue with vanco/zosyn 08/24 - continue vanco/zosyn 2) CoNS in blood only one in four bottles, likely this represents contamination and no need for treatment 3) ESRD to get HD today 4)DM 5) diarrhea stools studies have been negative change probiotic to include multiple types of bacteria 6) CVA 08/22 - just prior to surgery pt was noted to have slurred speech and L facial dropping CT head confirms new R acute infarct 08/24 - strength is improved, speech is still slurred though, more awake Problems: Consultation Date/Type/Reason Admit Date/Time Aug 14, 2016 at 14:49 Initial Consult Date 08/15/16 Type of Consultation: ID Referring Provider: CELESTE BHATT MD 24 HR Interval Summary Free Text/Dictation pt is more awake today spoke to nurse no V, D his speech is still slurred but strength is returning to LUE Exam/Review of Systems Vital Signs Vitals Vital Signs Date Time Temp Pulse Resp B/P Pulse Ox O2 Delivery O2 Flow Rate FiO2 08/24/16 04:12 98.2 84 19 118/67 95 08/22/16 08:20 Nasal Cannula 2.0 Intake and Output 08/23/16 08/23/16 08/24/16 15:00 23:00 07:00 Intake Total 660 ml Output Total 150 ml Balance 510 ml Exam Constitutional: alert Eyes: nl sclera Respiratory: clear to auscultation Cardiovascular: regular rate and rhythm Gastrointestinal: non-tender, soft Extremities: other (R foot is bandaged) Neurological: other (UE strength appears equal, able to open mouth but speech is still a bit slurred) Results Result Diagram: 08/24/16 0546 08/23/16 0842 Results 24 hrs Laboratory Tests Test 08/23/16 07:35 08/23/16 08:42 08/23/16 11:58 08/23/16 17:26 Bedside Glucose 202 132 185 Sodium Level 133 L Potassium Level 4.2 Chloride Level 98 Carbon Dioxide Level 25 Anion Gap 14 Blood Urea Nitrogen 49 H Creatinine 5.85 H Glucose Level 161 Calcium Level 7.2 L Total Bilirubin 0.0 L Direct Bilirubin 0.00 Indirect Bilirubin 0.0 Aspartate Amino Transf (AST/SGOT) 37 Alanine Aminotransferase (ALT/SGPT) 47 Alkaline Phosphatase 196 H Total Protein 5.2 L Albumin 2.7 L Globulin 2.50 Albumin/Globulin Ratio 1.08 Test 08/23/16 20:27 08/24/16 05:46 Bedside Glucose 151 White Blood Count 10.9 H Red Blood Count 3.98 L Hemoglobin 11.8 L Hematocrit 36.7 L Mean Corpuscular Volume 92.2 Mean Corpuscular Hemoglobin 29.6 Mean Corpuscular Hemoglobin Concent 32.2 Red Cell Distribution Width 15.8 H Platelet Count 207 Mean Platelet Volume 10.5 H Neutrophils % 78.9 H Lymphocytes % 13.1 L Monocytes % 5.2 Eosinophils % 1.8 Basophils % 0.4 Nucleated Red Blood Cells % 0.0 Neutrophils # 8.6 H Lymphocytes # 1.4 Monocytes # 0.6 Eosinophils # 0.2 Basophils # 0.0 Nucleated Red Blood Cells # 0.0 Medications Medications Current Medications Acetaminophen/ Hydrocodone Bitart ([place] (5/325)) 1 tab Q6H PRN PO MODERATE PAIN LEVEL 4-6; Start 08/14/16 at 14:30 Zolpidem Tartrate (Ambien) 5 mg QHS PRN PO SLEEP; Start 08/14/16 at 14:30 Acetaminophen (Tylenol Tab) 650 mg Q4 PRN PO PAIN AND OR ELEVATED TEMP; Start 08/14/16 at 14:30 Ascorbic Acid (Vitamin C) 500 mg DAILY PO Last administered on 08/23/16 09:12 ; Admin Dose 500 MG; Start 08/15/16 at 09:00 Aspirin (Aspirin) 81 mg DAILY PO Last administered on 08/23/16 09:11; Admin Dose 81 MG; Start 08/15/16 at 09:00 Bisacodyl (Dulcolax Supp) 10 mg DAILY PRN [place] BM; Start 08/14/16 at 14:30 Calcitriol (Rocaltrol) 0.25 mcg DAILY PO Last administered on 08/23/16 09:10; Admin Dose 0.25 MCG; Start 08/15/16 at 09:00 Loratadine (Claritin) 10 mg DAILY PO Last administered on 08/23/16 09:11; Admin Dose 10 MG; Start 08/15/16 at 09:00 Multivit/Ca Carb/ B Cmplx/FA/Prenat (Sarika-Nahomi) 1 tab DAILY PO Last administered on 08/23/16 09:11; Admin Dose 1 TAB; Start 08/15/16 at 09:00 Saccharomyces Boulardii (Florastor) 500 mg BID PO Last administered on 20:24; Admin Dose 500 MG; Start 08/14/16 at 21:00 Tamsulosin HCl (Flomax) 0.4 mg HS PO Last administered on 08/23/16 20:23; Admin Dose 0.4 MG; Start 08/14/16 at 21:00 Miscellaneous Information 1 ea NOTE XX ; Start 08/14/16 at 15:30 Glucose (Glutose) 15 gm Q15M PRN PO DECREASED GLUCOSE; Start 08/14/16 at 15:30 Glucose (Glutose) 22.5 gm Q15M PRN PO DECREASED GLUCOSE; Start 08/14/16 at 15:30 Dextrose (D50w Syringe) 25 ml Q15M PRN IV DECREASED GLUCOSE; Start 08/14/16 at 15:30 Dextrose (D50w Syringe) 50 ml Q15M PRN IV DECREASED GLUCOSE Last administered on 08/17/16 21:14; Admin Dose 50 ML; Start 08/14/16 at 15:30 Glucagon (Glucagen) 1 mg Q15M PRN IM DECREASED GLUCOSE; Start 08/14/16 at 15:30 Glucose (Glutose) 15 gm Q15M PRN BUCCAL DECREASED GLUCOSE; Start 08/14/16 at 15: 30 Diagnostic Test (Pha) (Accu-Chek) 1 ea 02 XX ; Start 08/16/16 at 02:00 Ondansetron HCl (Zofran Inj) 4 mg Q4H PRN IV NAUSEA AND/OR VOMITING Last administered on 08/22/16 09:34; Admin Dose 4 MG; Start 08/16/16 at 09:30 Ondansetron HCl (Zofran Odt) 4 mg Q6H PRN ODT NAUSEA; Start 08/16/16 at 09:30 Lactobacillus Acidophilus (Florajen3 Capsule) 1 each BID PO Last administered on 08/23/16 20:23; Admin Dose 1 EACH; Start 08/17/16 at 09:00 Atorvastatin Calcium (Lipitor) 10 mg QHS PO Last administered on 08/23/16 20: 24; Admin Dose 10 MG; Start 08/17/16 at 21:00 Clopidogrel Bisulfate (plaVIX) 75 mg DAILY PO Last administered on 08/23/16 09 :11; Admin Dose 75 MG; Start 08/18/16 at 09:00 Insulin Glargine (Lantus) 14 unit QHS SC Last administered on 08/23/16 20:30; Admin Dose 14 UNIT; Start 08/18/16 at 21:00 Metoprolol Tartrate 37.5 mg 37.5 mg BID PO Last administered on 08/23/16 20:24 ; Admin Dose 37.5 MG; Start 08/20/16 at 10:00 Vancomycin HCl (Vancocin) 250 ml @ 125 mls/hr Q96H IVPB Last administered on 21:56; Admin Dose 125 MLS/HR; Start 08/21/16 at 22:00 Morphine Sulfate 1 mg 1 mg Q2H PRN IV PAIN; Start 08/21/16 at 19:00 Piperacillin Sod/ Tazobactam Sod (Zosyn 2.25gm/ 50ml (Pmx)) 50 ml @ 100 mls/hr Q8 IVPB Last administered on 08/24/16 05:32; Admin Dose 100 MLS/HR; Start at 14:00 Apixaban (Eliquis) 2.5 mg BID PO Last administered on 08/23/16 20:24; Admin Dose 2.5 MG; Start 08/23/16 at 11:30 PEDRO PATRICK MD Aug 24, 2016 07:35
[2016-08-24 07:39] LABS: ALBUMIN 3.1 g/dl (3.3-4.9); ALBUMIN/GLOBULIN RATIO 1.19; CALCIUM 7.6 mg/dl (8.4-10.2); CREATININE 6.8 mg/dl (0.61-1.24); POTASSIUM 4.3 mmol/L (3.5-5.1); TOTAL PROTEIN 5.7 g/dl (6.1-8.1)
[2016-08-24] MEDS: INSULIN ASPART [NOVOLOG] 3 ML PEN SC SCH ×4 (07:39→21:00)
--- NOTE | 2016-08-24 08:14 | CONS ---
DATE OF ADMISSION: 08/14/2016 DATE OF CONSULTATION: HISTORY OF PRESENT ILLNESS: The patient is 70 years old with end-stage renal disease and dialysis, underlying hypertension, peripheral vascular disease with amputation. The patient is with acute ons et of stroke. The patient is on aspirin and Plavix. CT scan suspicious of acute right frontal lobe stroke. MRI pending. PHYSICAL EXAMINATION: GENERAL: Today, the patient is alert, awake, can follow simple commands. CRANIAL NERVE EXAM: Cranial nerves II: Pupils equal on both sides, reactive to light. Cranial ner ves III, IV, and : Extraocular muscles intact. Cranial nerves V: Equal sensation to face. Cran ial nerves VII: Symmetrical face. Cranial nerves VIII: Decreased hearing bilaterally. Cranial ne rves IX and X: Elevates palate. Cranial nerves XI: Elevates shoulder 5/5. Cranial nerve XII: St raight tongue. 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 Sensation: Info Analyst for glove and stocking area for touch, te mperature. Coordination: [id number] test intact. HEART: Regular rate and rhythm. LUNGS: Equal breath sounds. ABDOMEN: Soft, nondistended, nontender. ASSESSMENT AND PLAN: The patient is a 70-year-old with 1. Underlying stroke. The patient failed aspirin and Plavix for which I promote him to Aggrenox an d Plavix to be on a stroke prophylaxis. 2. History of ____ statin. 3. Follow up the patient with carotid Doppler and 2-D echo. 4. History of diabetes. Follow up the patient with sliding scale insulin and Accu-Chek. 5. History of peripheral vascular disease with amputation. 6. Peripheral neuropathy probably secondary to diabetes. Dictated By: NJ THOMAS/YOANDY Conf#: [id number] DID#: [id number]
[2016-08-24] MEDS: METOPROLOL 25 MG TAB PO SCH ×2 (09:00→22:03)
--- NOTE | 2016-08-24 09:19 | PN ---
Date/Time of Note Date/Time of Note DATE: 08/24/16 TIME: 09:09 Assessment/Plan VTE Prophylaxis VTE Prophylaxis Intervention: other Lines/Catheters IV Catheter Type (from [facility]): Saline Lock Urinary Cath still in place: No Assessment/Plan Chief Complaint/Hosp Course 1. ESRD on maintenance hemodialysis [facility] . hemodialysis is ordered today . He can be transferred to med/surg 2. CAD he has had NSTEMI , he had a coronary angiogram and had 2 stents placed in the LAD. He is now on aspirin and Plavix. 3. IDDM , his blood sugars have been low. I will decrease his dose of Lantus insulin. 4. PAD , gangrene of R foot 4th toe . He was scheduled for surgery today however he has altered mental status and some neurologic deficits and we canceled the surgery. 5. cellulitis of R lower leg , improving on antibiotics. 6. postural hypotension . 7. Atrial fib/flutter, new onset , I plan to start him on Eliquis 2.5 mg twice a day after surgery tomorrow 8. Depression 9. 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 10. dysphagia , with NG tube and to be re-evaluated by speech therapy . Problems: Subjective 24 Hr Interval Summary Free Text/Dictation He is more awake , speech is less slurred . He has NG tube in place . Constitutional: improved Cardiovascular: no complaints Gastrointestinal: other Genitourinary: no complaints Neurologic: focal-weakness Psychological: depression Exam/Review of Systems Vital Signs Vitals Vital Signs Date Time Temp Pulse Resp B/P Pulse Ox O2 Delivery O2 Flow Rate FiO2 08/24/16 08:26 97.5 85 19 146/68 94 08/22/16 08:20 Nasal Cannula 2.0 Intake and Output 08/23/16 08/23/16 08/24/16 15:00 23:00 07:00 Intake Total 660 ml Output Total 150 ml Balance 510 ml Exam L leg BKA , R leg with ischemic R 4 th toe . Psych: depression Respiratory: clear to auscultation, normal air movement Cardiovascular: irregular rhythm Gastrointestinal: soft Results Result Diagram: 08/24/16 0546 08/24/16 0546 Results 24 hrs Laboratory Tests Test 08/23/16 11:58 08/23/16 17:26 08/23/16 20:27 08/24/16 05:46 Bedside Glucose 132 185 151 White Blood Count 10.9 H Red Blood Count 3.98 L Hemoglobin 11.8 L Hematocrit 36.7 L Mean Corpuscular Volume 92.2 Mean Corpuscular Hemoglobin 29.6 Mean Corpuscular Hemoglobin Concent 32.2 Red Cell Distribution Width 15.8 H Platelet Count 207 Mean Platelet Volume 10.5 H Neutrophils % 78.9 H Lymphocytes % 13.1 L Monocytes % 5.2 Eosinophils % 1.8 Basophils % 0.4 Nucleated Red Blood Cells % 0.0 Neutrophils # 8.6 H Lymphocytes # 1.4 Monocytes # 0.6 Eosinophils # 0.2 Basophils # 0.0 Nucleated Red Blood Cells # 0.0 Sodium Level 134 L Potassium Level 4.3 Chloride Level 97 Carbon Dioxide Level 25 Anion Gap 16 Blood Urea Nitrogen 58 H Creatinine 6.80 H Glucose Level 143 Calcium Level 7.6 L Total Bilirubin 0.0 L Direct Bilirubin 0.00 Indirect Bilirubin 0.0 Aspartate Amino Transf (AST/SGOT) 35 Alanine Aminotransferase (ALT/SGPT) 45 Alkaline Phosphatase 211 H Total Protein 5.7 L Albumin 3.1 L Globulin 2.60 Albumin/Globulin Ratio 1.19 Test 08/24/16 07:31 Bedside Glucose 185 Medications Medications Current Medications Acetaminophen/ Hydrocodone Bitart ([place] (5/325)) 1 tab Q6H PRN PO MODERATE PAIN LEVEL 4-6; Start 08/14/16 at 14:30 Zolpidem Tartrate (Ambien) 5 mg QHS PRN PO SLEEP; Start 08/14/16 at 14:30 Acetaminophen (Tylenol Tab) 650 mg Q4 PRN PO PAIN AND OR ELEVATED TEMP; Start 08/14/16 at 14:30 Ascorbic Acid (Vitamin C) 500 mg DAILY PO Last administered on 08/23/16 09:12 ; Admin Dose 500 MG; Start 08/15/16 at 09:00 Aspirin (Aspirin) 81 mg DAILY PO Last administered on 08/23/16 09:11; Admin Dose 81 MG; Start 08/15/16 at 09:00 Bisacodyl (Dulcolax Supp) 10 mg DAILY PRN [place] BM; Start 08/14/16 at 14:30 Calcitriol (Rocaltrol) 0.25 mcg DAILY PO Last administered on 08/23/16 09:10; Admin Dose 0.25 MCG; Start 08/15/16 at 09:00 Loratadine (Claritin) 10 mg DAILY PO Last administered on 08/23/16 09:11; Admin Dose 10 MG; Start 08/15/16 at 09:00 Multivit/Ca Carb/ B Cmplx/FA/Prenat (Sarika-Nahomi) 1 tab DAILY PO Last administered on 08/23/16 09:11; Admin Dose 1 TAB; Start 08/15/16 at 09:00 Saccharomyces Boulardii (Florastor) 500 mg BID PO Last administered on 20:24; Admin Dose 500 MG; Start 08/14/16 at 21:00 Tamsulosin HCl (Flomax) 0.4 mg HS PO Last administered on 08/23/16 20:23; Admin Dose 0.4 MG; Start 08/14/16 at 21:00 Miscellaneous Information 1 ea NOTE XX ; Start 08/14/16 at 15:30 Glucose (Glutose) 15 gm Q15M PRN PO DECREASED GLUCOSE; Start 08/14/16 at 15:30 Glucose (Glutose) 22.5 gm Q15M PRN PO DECREASED GLUCOSE; Start 08/14/16 at 15:30 Dextrose (D50w Syringe) 25 ml Q15M PRN IV DECREASED GLUCOSE; Start 08/14/16 at 15:30 Dextrose (D50w Syringe) 50 ml Q15M PRN IV DECREASED GLUCOSE Last administered on 08/17/16 21:14; Admin Dose 50 ML; Start 08/14/16 at 15:30 Glucagon (Glucagen) 1 mg Q15M PRN IM DECREASED GLUCOSE; Start 08/14/16 at 15:30 Glucose (Glutose) 15 gm Q15M PRN BUCCAL DECREASED GLUCOSE; Start 08/14/16 at 15: 30 Diagnostic Test (Pha) (Accu-Chek) 1 ea 02 XX ; Start 08/16/16 at 02:00 Ondansetron HCl (Zofran Inj) 4 mg Q4H PRN IV NAUSEA AND/OR VOMITING Last administered on 08/22/16 09:34; Admin Dose 4 MG; Start 08/16/16 at 09:30 Ondansetron HCl (Zofran Odt) 4 mg Q6H PRN ODT NAUSEA; Start 08/16/16 at 09:30 Lactobacillus Acidophilus (Florajen3 Capsule) 1 each BID PO Last administered on 08/23/16 20:23; Admin Dose 1 EACH; Start 08/17/16 at 09:00 Atorvastatin Calcium (Lipitor) 10 mg QHS PO Last administered on 08/23/16 20: 24; Admin Dose 10 MG; Start 08/17/16 at 21:00 Clopidogrel Bisulfate (plaVIX) 75 mg DAILY PO Last administered on 08/23/16 09 :11; Admin Dose 75 MG; Start 08/18/16 at 09:00 Insulin Glargine (Lantus) 14 unit QHS SC Last administered on 08/23/16 20:30; Admin Dose 14 UNIT; Start 08/18/16 at 21:00 Metoprolol Tartrate 37.5 mg 37.5 mg BID PO Last administered on 08/23/16 20:24 ; Admin Dose 37.5 MG; Start 08/20/16 at 10:00 Vancomycin HCl (Vancocin) 250 ml @ 125 mls/hr Q96H IVPB Last administered on 21:56; Admin Dose 125 MLS/HR; Start 08/21/16 at 22:00 Morphine Sulfate 1 mg 1 mg Q2H PRN IV PAIN; Start 08/21/16 at 19:00 Piperacillin Sod/ Tazobactam Sod (Zosyn 2.25gm/ 50ml (Pmx)) 50 ml @ 100 mls/hr Q8 IVPB Last administered on 08/24/16 05:32; Admin Dose 100 MLS/HR; Start at 14:00 Apixaban (Eliquis) 2.5 mg BID PO Last administered on 08/23/16 20:24; Admin Dose 2.5 MG; Start 08/23/16 at 11:30 CELESTE BHATT MD Aug 24, 2016 09:19
[2016-08-24] MEDS: CREON (24K-76K-120K) 1 CAP PO SCH ×3 (09:47→17:04)
[2016-08-24] MEDS: ASPIRIN 81 MG TAB PO SCH (09:48)
[2016-08-24] MEDS: LORATADINE 10 MG TAB PO SCH (09:48)
[2016-08-24] MEDS: CALCIUM ACETATE 667 MG CAP PO SCH ×3 (09:48→17:05)
[2016-08-24] MEDS: APIXABAN 5 MG TABLET PO SCH ×2 (09:48→22:03)
[2016-08-24] MEDS: L ACIDOPHIL/B LACTIS/B LONGUM CAPSULE PO SCH ×2 (09:49→22:20)
[2016-08-24] MEDS: MULTIVIT/CA CARB/B CMPLX/FA TAB PO SCH (09:49)
[2016-08-24] MEDS: SACCHAROMYCES BOULARDII 250 MG CAP PO SCH ×2 (09:49→22:03)
[2016-08-24] MEDS: CLOPIDOGREL 75 MG TAB PO SCH (09:49)
[2016-08-24] MEDS: CALCITRIOL 0.25 MCG CAP PO SCH (09:50)
[2016-08-24] MEDS: ASCORBIC ACID 500 MG TAB PO SCH (09:50)
--- NOTE | 2016-08-24 21:18 | PN ---
Date/Time of Note Date/Time of Note DATE: 08/24/16 TIME: 21:10 Assessment/Plan Lines/Catheters IV Catheter Type (from [facility]): Saline Lock Jimenez in Place (from Nrs): No Assessment/Plan Chief Complaint/Hosp Course -Bilateral lower extremity atherosclerosis with gangrene: It seems the patient has developed worsening of his fourth toe wound with his heel ulcer. Lower extremity arterial duplex demonstrated monophasic flow in the distal thigh of the graft. At the moment the patient had a altered mental status and likely a stroke therefore will defer obtaining an Angiogram and schedule for a CT angiography for now -Continue wound care per podiatry for now -Optimize vascular status (BP meds, diet, nutrition, exercise, sugar control, antiplatelets). -Discussed findings, plan and management with the patient and he understands. -Thank you for allowing us to partake in the care of your patient. Please call with any questions. Problems: Subjective 24 Hr Interval Summary no new vascular events overnight, sleepy Exam/Review of Systems Vital Signs Vitals Vital Signs Date Time Temp Pulse Resp B/P Pulse Ox O2 Delivery O2 Flow Rate FiO2 08/24/16 13:40 70 08/24/16 13:40 19 08/24/16 11:06 97.5 138/67 95 08/22/16 08:20 Nasal Cannula 2.0 Intake and Output 08/23/16 08/23/16 08/24/16 15:00 23:00 07:00 Intake Total 660 ml Output Total 150 ml Balance 510 ml Exam Free Text/Dictation GENERAL: Alert and oriented x3, OGT intact PULMONARY: Clear to auscultation bilaterally CARDIOVASCULAR: S1, S2 present. ABDOMEN: Soft, nontender, nondistended. Bowel sounds positive. EXTREMITIES: Right lower extremity: Palpable femoral pulse, nonpalpable pedal pulse. Motor and sensory intact, 4th toe gangrene. Surgical scars are well healed. Bypass that crosses over to the anterior tibial on the medial aspect that's palpable graft. Palpable graft at the ankle. Results Result Diagram: 08/24/16 0546 08/24/16 0546 MARTÍNEZ ROSADO MD Aug 24, 2016 21:18
[2016-08-24] MEDS: ATORVASTATIN 10 MG TAB PO SCH (22:02)
[2016-08-24] MEDS: TAMSULOSIN (SR) 0.4 MG CAP PO SCH (22:02)
[2016-08-24] MEDS: INSULIN GLARGINE [LANtus] 3 ML PEN SC SCH (22:35)
--- NOTE | 2016-08-24 23:12 | CONS ---
Date/Time of Note Date/Time of Note DATE: 08/24/16 TIME: 23:05 Assessment/Plan Assessment/Plan Chief Complaint/Hosp Course # Non-STEMI s/p PCI to LAD with SYDNI x 2 # Acute CVA # Atrial flutter - new onset # Chronic renal failure on dialysis. # Peripheral vascular disease status post left BKA, status post right fem-tib bypass, now with right toe gangrene. # Orthostatic hypotension. # Anemia of chronic disease. # Moderate aortic stenosis. # Hyperlipidemiacontrolled. # Type 2 diabetes. # Mild aortic regurgitation on echocardiography. # Benign prostatic hypertrophy # Right toe gangrene >> cont asa 81mg daily, plavix 75mg daily given recent PCI >> on Eliquis 2.5 BID for anticoag >> metoprolol for heart rate control >> cont statin >> vascular consulting, CTA pending Problems: Consultation Date/Type/Reason Admit Date/Time Aug 14, 2016 at 14:49 Initial Consult Date 08/15/16 Type of Consultation: cardiology Referring Provider: CELESTE BHATT MD 24 HR Interval Summary Free Text/Dictation pt lethargic, in bed. abusable to questions. denies cp/sob. Detailed Summary Additional Comments all other systems negative Exam/Review of Systems Vital Signs Vitals Vital Signs Date Time Temp Pulse Resp B/P Pulse Ox O2 Delivery O2 Flow Rate FiO2 08/24/16 20:00 98.0 66 16 143/67 95 08/22/16 08:20 Nasal Cannula 2.0 Intake and Output 08/23/16 08/23/16 08/24/16 15:00 23:00 07:00 Intake Total 660 ml Output Total 150 ml Balance 510 ml Exam Constitutional: alert, oriented, other (appears more sleepy this am but communicating) Psych: no complaints Head: normocephalic Eyes: nl conjunctiva ENMT: nl external ears & nose, other (NG tube in place) Neck: supple Respiratory: clear to auscultation Cardiovascular: regular rate and rhythm Gastrointestinal: soft Musculoskeletal: 4 th toe gangrenous L, R stump normal Results Result Diagram: 08/24/16 0546 08/24/16 0546 Results 24 hrs Laboratory Tests Test 08/24/16 05:46 08/24/16 07:31 08/24/16 12:39 08/24/16 17:06 White Blood Count 10.9 H Red Blood Count 3.98 L Hemoglobin 11.8 L Hematocrit 36.7 L Mean Corpuscular Volume 92.2 Mean Corpuscular Hemoglobin 29.6 Mean Corpuscular Hemoglobin Concent 32.2 Red Cell Distribution Width 15.8 H Platelet Count 207 Mean Platelet Volume 10.5 H Neutrophils % 78.9 H Lymphocytes % 13.1 L Monocytes % 5.2 Eosinophils % 1.8 Basophils % 0.4 Nucleated Red Blood Cells % 0.0 Neutrophils # 8.6 H Lymphocytes # 1.4 Monocytes # 0.6 Eosinophils # 0.2 Basophils # 0.0 Nucleated Red Blood Cells # 0.0 Sodium Level 134 L Potassium Level 4.3 Chloride Level 97 Carbon Dioxide Level 25 Anion Gap 16 Blood Urea Nitrogen 58 H Creatinine 6.80 H Glucose Level 143 Calcium Level 7.6 L Total Bilirubin 0.0 L Direct Bilirubin 0.00 Indirect Bilirubin 0.0 Aspartate Amino Transf (AST/SGOT) 35 Alanine Aminotransferase (ALT/SGPT) 45 Alkaline Phosphatase 211 H Total Protein 5.7 L Albumin 3.1 L Globulin 2.60 Albumin/Globulin Ratio 1.19 Bedside Glucose 185 177 176 Test 08/24/16 22:00 Bedside Glucose 158 Medications Medications Current Medications Acetaminophen/ Hydrocodone Bitart ([place] (5/325)) 1 tab Q6H PRN PO MODERATE PAIN LEVEL 4-6; Start 08/14/16 at 14:30 Zolpidem Tartrate (Ambien) 5 mg QHS PRN PO SLEEP; Start 08/14/16 at 14:30 Acetaminophen (Tylenol Tab) 650 mg Q4 PRN PO PAIN AND OR ELEVATED TEMP; Start 08/14/16 at 14:30 Ascorbic Acid (Vitamin C) 500 mg DAILY PO Last administered on 08/24/16 09:50 ; Admin Dose 500 MG; Start 08/15/16 at 09:00 Aspirin (Aspirin) 81 mg DAILY PO Last administered on 08/24/16 09:48; Admin Dose 81 MG; Start 08/15/16 at 09:00 Bisacodyl (Dulcolax Supp) 10 mg DAILY PRN [place] BM; Start 08/14/16 at 14:30 Calcitriol (Rocaltrol) 0.25 mcg DAILY PO Last administered on 08/24/16 09:50; Admin Dose 0.25 MCG; Start 08/15/16 at 09:00 Loratadine (Claritin) 10 mg DAILY PO Last administered on 08/24/16 09:48; Admin Dose 10 MG; Start 08/15/16 at 09:00 Multivit/Ca Carb/ B Cmplx/FA/Prenat (Sarika-Nahomi) 1 tab DAILY PO Last administered on 08/24/16 09:49; Admin Dose 1 TAB; Start 08/15/16 at 09:00 Saccharomyces Boulardii (Florastor) 500 mg BID PO Last administered on 22:03; Admin Dose 500 MG; Start 08/14/16 at 21:00 Tamsulosin HCl (Flomax) 0.4 mg HS PO Last administered on 08/24/16 22:02; Admin Dose 0.4 MG; Start 08/14/16 at 21:00 Miscellaneous Information 1 ea NOTE XX ; Start 08/14/16 at 15:30 Glucose (Glutose) 15 gm Q15M PRN PO DECREASED GLUCOSE; Start 08/14/16 at 15:30 Glucose (Glutose) 22.5 gm Q15M PRN PO DECREASED GLUCOSE; Start 08/14/16 at 15:30 Dextrose (D50w Syringe) 25 ml Q15M PRN IV DECREASED GLUCOSE; Start 08/14/16 at 15:30 Dextrose (D50w Syringe) 50 ml Q15M PRN IV DECREASED GLUCOSE Last administered on 08/17/16 21:14; Admin Dose 50 ML; Start 08/14/16 at 15:30 Glucagon (Glucagen) 1 mg Q15M PRN IM DECREASED GLUCOSE; Start 08/14/16 at 15:30 Glucose (Glutose) 15 gm Q15M PRN BUCCAL DECREASED GLUCOSE; Start 08/14/16 at 15: 30 Diagnostic Test (Pha) (Accu-Chek) 1 ea 02 XX ; Start 08/16/16 at 02:00 Ondansetron HCl (Zofran Inj) 4 mg Q4H PRN IV NAUSEA AND/OR VOMITING Last administered on 08/22/16 09:34; Admin Dose 4 MG; Start 08/16/16 at 09:30 Ondansetron HCl (Zofran Odt) 4 mg Q6H PRN ODT NAUSEA; Start 08/16/16 at 09:30 Lactobacillus Acidophilus (Florajen3 Capsule) 1 each BID PO Last administered on 08/24/16 22:20; Admin Dose 1 EACH; Start 08/17/16 at 09:00 Atorvastatin Calcium (Lipitor) 10 mg QHS PO Last administered on 08/24/16 22: 02; Admin Dose 10 MG; Start 08/17/16 at 21:00 Clopidogrel Bisulfate (plaVIX) 75 mg DAILY PO Last administered on 08/24/16 09 :49; Admin Dose 75 MG; Start 08/18/16 at 09:00 Insulin Glargine (Lantus) 14 unit QHS SC Last administered on 08/24/16 22:35; Admin Dose 14 UNIT; Start 08/18/16 at 21:00 Metoprolol Tartrate 37.5 mg 37.5 mg BID PO Last administered on 08/24/16 22:03 ; Admin Dose 37.5 MG; Start 08/20/16 at 10:00 Vancomycin HCl (Vancocin) 250 ml @ 125 mls/hr Q96H IVPB Last administered on 21:56; Admin Dose 125 MLS/HR; Start 08/21/16 at 22:00 Morphine Sulfate 1 mg 1 mg Q2H PRN IV PAIN; Start 08/21/16 at 19:00 Piperacillin Sod/ Tazobactam Sod (Zosyn 2.25gm/ 50ml (Pmx)) 50 ml @ 100 mls/hr Q8 IVPB Last administered on 08/24/16 22:41; Admin Dose 100 MLS/HR; Start at 14:00 Apixaban (Eliquis) 2.5 mg BID PO Last administered on 08/24/16 22:03; Admin Dose 2.5 MG; Start 08/23/16 at 11:30 Procedures Procedures imaging reports/provider notes reviewed in emr AMY PEREZ Aug 24, 2016 23:12
[2016-08-25] MEDS: ACCU-CHEK XX SCH (02:00)
[2016-08-25] MEDS: PIPER-TAZO 2.25 GM (PMX) 50 ML IVPB SCH ×3 (06:32→21:14)
[2016-08-25 08:19] VITALS: BP 142/68; RESP 18
[2016-08-25] MEDS: INSULIN ASPART [NOVOLOG] 3 ML PEN SC SCH ×4 (08:43→20:55)
[2016-08-25] MEDS: METOPROLOL 25 MG TAB PO SCH ×2 (08:45→20:52)
[2016-08-25] MEDS: CALCITRIOL 0.25 MCG CAP PO SCH (08:48)
[2016-08-25] MEDS: CALCIUM ACETATE 667 MG CAP PO SCH ×3 (08:50→17:28)
[2016-08-25] MEDS: SACCHAROMYCES BOULARDII 250 MG CAP PO SCH ×2 (08:52→20:52)
[2016-08-25] MEDS: L ACIDOPHIL/B LACTIS/B LONGUM CAPSULE PO SCH ×2 (08:52→20:52)
[2016-08-25] MEDS: MULTIVIT/CA CARB/B CMPLX/FA TAB PO SCH (08:52)
[2016-08-25] MEDS: LORATADINE 10 MG TAB PO SCH (08:52)
[2016-08-25] MEDS: ASCORBIC ACID 500 MG TAB PO SCH (08:53)
[2016-08-25] MEDS: CLOPIDOGREL 75 MG TAB PO SCH (08:53)
[2016-08-25] MEDS: APIXABAN 5 MG TABLET PO SCH ×2 (08:53→20:50)
[2016-08-25] MEDS: ASPIRIN 81 MG TAB PO SCH (08:53)
[2016-08-25] MEDS: CREON (24K-76K-120K) 1 CAP PO SCH ×3 (08:53→17:28)
[2016-08-25] MEDS ORDERED: IOHEXOL 100 ML ONE (12:55)
[2016-08-25] MEDS ORDERED: SOD CHLORIDE 0.9% 100 ML ONE (12:55)
[2016-08-25] MEDS ORDERED: IOHEXOL 350MG/ML 50 ML BTL ONE (12:55)
--- NOTE | 2016-08-25 13:56 | RADRPT ---
Vent Rate: 83 bpm RR Interval: 0 msec VA Interval: 0 msec QRS Duration: 124 msec QT Interval: 378 msec QTC Interval: 444 msec P-R-T [place]: 0 - 87 - 0 degrees Atrial flutter with variable AV block with premature ventricular or aberrantly conducted complexes Nonspecific intraventricular conduction delay ST amp; T wave abnormality, consider inferolateral ischemia Abnormal ECG Electronically Signed By: Avery Trinidad [id number]
--- NOTE | 2016-08-25 15:53 | RADRPT ---
PROCEDURE: CT angiogram of the abdomen and pelvis with bilateral lower extremity runoff and with 3 -D reconstructions CLINICAL INDICATION: gangrene TECHNIQUE: CT angiogram of the abdomen and pelvis with lower extremity runoff was performed on a RADLIVElice CT scanner . The patient was scanned after administration of intravenous contrast. Sagit niki and coronal reformatted images were obtained from the axial source images. 3D MIP reformatted im ages were also created from the axial source images. DLP 1277.14 mGycm CTDI vol 91.55, 8.37 mGy COMPARISON: None FINDINGS: ANGIOGRAM: There is no acute dissection or aneurysm of the abdominal aorta. The celiac, SMA, and NICOLASA are widely patent. The left gastric artery is replaced off the aorta. There are single renal arteries bilaterally. There is moderate to severe narrowing of the proximal right renal artery. There is mild to moderate narrowing of the left renal artery origin. Common, internal and external iliac arteries are patent bilaterally. RIGHT LOWER EXTREMITY: The right common femoral and profunda arteries are widely patent. There is mild multifocal narrowing of the proximal right superficial femoral artery. There is multifocal severe narrowing of the above-knee popliteal artery as well as occlusion of the popliteal artery at the level of the tibial plateau. There is brief reconstitution of the below-knee popliteal artery from collaterals via the right ante rior tibial artery although it occludes again at the level of the tibioperoneal trunk bifurcation. There is occlusion of the anterior tibial artery in the proximal calf. There is a bypass graft which extends from the proximal right superficial femoral artery and travels in the medial aspect of the subcutaneous soft tissues of the right thigh and calves and inserts ont o the dorsalis pedis artery which is patent and reconstitutes flow via the posterior tibial artery b elow the ankle. Retrograde opacification of the peroneal artery is also noted in the mid to distal calf. LEFT LOWER EXTREMITY: The CHEMISTRY TUTOR, SFA, and profunda arteries are widely patent. There is a focus of short segment moderate to severe narrowing of the above-knee left popliteal tal ry on series 2, image 277 with a second similar focus noted on image 288. There is occlusion of the popliteal artery at the level of the tibial plateau. There is a below-knee amputation. ANCILLARY: There is mild perihepatic and pelvic ascites. Bilateral kidneys are atrophic. There is prominent dilatation of the pancreatic duct which measures up to 7 mm in diameter. There are small bilateral pleural effusions with compressive bibasilar atelectasis. The appendix is within normal limits. There is mild cardiomegaly. The tip of an enteric tube is noted in the stomach. IMPRESSION: Multifocal severe narrowing of the right above-knee popliteal artery which occludes at the level of the tibial plateau. There is a patent bypass graft which extends from the right superficial femoral artery to the dorsalis pedis artery with retrograde flow to the peroneal artery up to the midcalf a s well as to the posterior tibial artery below the ankle. Moderate to severe narrowing of the left above-knee popliteal artery which occludes at the level of the tibial plateau. A below-knee amputation is noted on the left. Prominent dilatation of the pancreatic duct to 7 mm. MRCP can be obtained for further evaluation, i f indicated. Mild cardiomegaly with small bilateral pleural effusions. Mild abdominopelvic ascites. RPTAT: EE Physician Javed Date Time Electronically viewed and signed by Gt Hester Physician on 08/25/2016 15:53 /
--- NOTE | 2016-08-25 19:19 | PN ---
Date/Time of Note Date/Time of Note DATE: 08/25/16 TIME: 19:11 Assessment/Plan VTE Prophylaxis VTE Prophylaxis Intervention: other Lines/Catheters IV [facility]from [facility] Urinary Cath still in place: No Assessment/Plan Chief Complaint/Hosp Course 1. ESRD on maintenance hemodialysis [facility] . hemodialysis is ordered for tomorrow . 2. CAD he has had NSTEMI , he had a coronary angiogram and had 2 stents placed in the LAD. He is now on aspirin and Plavix. 3. IDDM , his blood sugars have been low. I will decrease his dose of Lantus insulin. 4. PAD , gangrene of R foot 4th toe . He was scheduled for surgery however he had a CVA and surgery was canceled . 5. cellulitis of R lower leg , improving on antibiotics. 6. postural hypotension . 7. Atrial fib/flutter, he is now on Eliquis . 8. Depression , he seems better . We talked about stopping dialysis . He wants to continue dialysis for now . 9. 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 10. dysphagia , with NG tube and to be re-evaluated by speech therapy . He is able to swallow and hopefully NG tube can be removed tomorrow . Problems: Subjective 24 Hr Interval Summary Free Text/Dictation He is awake and alert . He says that he feels tired . He had a CT angiogram today . Constitutional: no complaints Cardiovascular: no complaints Gastrointestinal: no complaints Musculoskeletal: no complaints Neurologic: focal-weakness Exam/Review of Systems Vital Signs Vitals Vital Signs Date Time Temp Pulse Resp B/P Pulse Ox O2 Delivery O2 Flow Rate FiO2 08/25/16 08:19 97.6 80 18 142/68 08/24/16 20:00 95 08/22/16 08:20 Nasal Cannula 2.0 Intake and Output 08/24/16 08/24/16 08/25/16 15:00 23:00 07:00 Intake Total 860 ml 110 ml 650 ml Output Total 3300 ml Balance -2440 ml 110 ml 650 ml Exam S/P L BKA , R foot with gangrenous 4th toe . R lower leg redness is decreasing . Constitutional: alert Psych: no complaints Respiratory: clear to auscultation, normal air movement Cardiovascular: irregular rhythm Gastrointestinal: soft Results Result Diagram: 6/19/17 0546 08/24/16 0546 Results 24 hrs Laboratory Tests Test 08/24/16 22:00 08/25/16 08:39 08/25/16 12:26 08/25/16 17:27 Bedside Glucose 158 187 176 135 Medications Medications Current Medications Acetaminophen/ Hydrocodone Bitart ([place] (5/325)) 1 tab Q6H PRN PO MODERATE PAIN LEVEL 4-6; Start 08/14/16 at 14:30 Zolpidem Tartrate (Ambien) 5 mg QHS PRN PO SLEEP; Start 08/14/16 at 14:30 Acetaminophen (Tylenol Tab) 650 mg Q4 PRN PO PAIN AND OR ELEVATED TEMP; Start 08/14/16 at 14:30 Ascorbic Acid (Vitamin C) 500 mg DAILY PO Last administered on 08/25/16 08:53 ; Admin Dose 500 MG; Start 08/15/16 at 09:00 Aspirin (Aspirin) 81 mg DAILY PO Last administered on 08/25/16 08:53; Admin Dose 81 MG; Start 08/15/16 at 09:00 Bisacodyl (Dulcolax Supp) 10 mg DAILY PRN [place] BM; Start 08/14/16 at 14:30 Calcitriol (Rocaltrol) 0.25 mcg DAILY PO Last administered on 08/25/16 08:48; Admin Dose 0.25 MCG; Start 08/15/16 at 09:00 Loratadine (Claritin) 10 mg DAILY PO Last administered on 08/25/16 08:52; Admin Dose 10 MG; Start 08/15/16 at 09:00 Multivit/Ca Carb/ B Cmplx/FA/Prenat (Sarika-Nahomi) 1 tab DAILY PO Last administered on 08/25/16 08:52; Admin Dose 1 TAB; Start 08/15/16 at 09:00 Saccharomyces Boulardii (Florastor) 500 mg BID PO Last administered on 08:52; Admin Dose 500 MG; Start 08/14/16 at 21:00 Tamsulosin HCl (Flomax) 0.4 mg HS PO Last administered on 08/24/16 22:02; Admin Dose 0.4 MG; Start 08/14/16 at 21:00 Miscellaneous Information 1 ea NOTE XX ; Start 08/14/16 at 15:30 Glucose (Glutose) 15 gm Q15M PRN PO DECREASED GLUCOSE; Start 08/14/16 at 15:30 Glucose (Glutose) 22.5 gm Q15M PRN PO DECREASED GLUCOSE; Start 08/14/16 at 15:30 Dextrose (D50w Syringe) 25 ml Q15M PRN IV DECREASED GLUCOSE; Start 08/14/16 at 15:30 Dextrose (D50w Syringe) 50 ml Q15M PRN IV DECREASED GLUCOSE Last administered on 08/17/16 21:14; Admin Dose 50 ML; Start 08/14/16 at 15:30 Glucagon (Glucagen) 1 mg Q15M PRN IM DECREASED GLUCOSE; Start 08/14/16 at 15:30 Glucose (Glutose) 15 gm Q15M PRN BUCCAL DECREASED GLUCOSE; Start 08/14/16 at 15: 30 Diagnostic Test (Pha) (Accu-Chek) 1 ea 02 XX ; Start 08/16/16 at 02:00 Ondansetron HCl (Zofran Inj) 4 mg Q4H PRN IV NAUSEA AND/OR VOMITING Last administered on 08/22/16 09:34; Admin Dose 4 MG; Start 08/16/16 at 09:30 Ondansetron HCl (Zofran Odt) 4 mg Q6H PRN ODT NAUSEA; Start 08/16/16 at 09:30 Lactobacillus Acidophilus (Florajen3 Capsule) 1 each BID PO Last administered on 08/25/16 08:52; Admin Dose 1 EACH; Start 08/17/16 at 09:00 Atorvastatin Calcium (Lipitor) 10 mg QHS PO Last administered on 08/24/16 22: 02; Admin Dose 10 MG; Start 08/17/16 at 21:00 Clopidogrel Bisulfate (plaVIX) 75 mg DAILY PO Last administered on 08/25/16 08 :53; Admin Dose 75 MG; Start 08/18/16 at 09:00 Insulin Glargine (Lantus) 14 unit QHS SC Last administered on 08/24/16 22:35; Admin Dose 14 UNIT; Start 08/18/16 at 21:00 Metoprolol Tartrate 37.5 mg 37.5 mg BID PO Last administered on 08/25/16 08:45 ; Admin Dose 37.5 MG; Start 08/20/16 at 10:00 Vancomycin HCl (Vancocin) 250 ml @ 125 mls/hr Q96H IVPB Last administered on 21:56; Admin Dose 125 MLS/HR; Start 08/21/16 at 22:00 Morphine Sulfate 1 mg 1 mg Q2H PRN IV PAIN; Start 08/21/16 at 19:00 Piperacillin Sod/ Tazobactam Sod (Zosyn 2.25gm/ 50ml (Pmx)) 50 ml @ 100 mls/hr Q8 IVPB Last administered on 08/25/16 13:40; Admin Dose 100 MLS/HR; Start at 14:00 Apixaban (Eliquis) 2.5 mg BID PO Last administered on 08/25/16 08:53; Admin Dose 2.5 MG; Start 08/23/16 at 11:30 CELESTE BHATT MD Aug 25, 2016 19:19
[2016-08-25 20:11] VITALS: BP 135/60; RESP 18
[2016-08-25] MEDS: ATORVASTATIN 10 MG TAB PO SCH (20:51)
[2016-08-25] MEDS: TAMSULOSIN (SR) 0.4 MG CAP PO SCH (20:51)
[2016-08-25] MEDS: VANCOMYCIN 1 GM in NS 250 ML IVPB SCH (21:14)
[2016-08-25] MEDS: INSULIN GLARGINE [LANtus] 3 ML PEN SC SCH (21:15)
[2016-08-26] VITALS (9 sets, daily range): BP systolic 98–147; BP diastolic 53–82; PULSE 67–75; RESP 18–20
[2016-08-26] MEDS: ACCU-CHEK XX SCH (02:00)
[2016-08-26] MEDS: PIPER-TAZO 2.25 GM (PMX) 50 ML IVPB SCH (05:12)
[2016-08-26 06:03] LABS: ADD SCAN DIFF NO
[2016-08-26 06:10] LABS: BASOPHILS % 0.3 % (0.0-2.0); EOSINOPHILS # 0.2 10^3/ul (0.0-0.5); EOSINOPHILS % 1.9 % (0.0-7.0); HEMATOCRIT 37.2 % (42.0-52.0); HEMOGLOBIN 11.6 g/dl (14.0-18.0); LYMPHOCYTES # 1.5 10^3/ul (0.8-2.9); MEAN CORPUSCULAR HEMOGLOBIN 29.2 pg (29.0-33.0); MEAN CORPUSCULAR HGB CONC 31.2 g/dl (32.0-37.0); MEAN CORPUSCULAR VOLUME 93.7 fl (82.0-101.0); MEAN PLATELET VOLUME 10.9 fl (7.4-10.4); MONOCYTE # 0.8 10^3/ul (0.3-0.9); MONOCYTES % 6.5 % (0.0-11.0); NEUTROPHIL # 9.6 10^3/ul (1.6-7.5); NEUTROPHILS % 78.8 % (39.0-77.0); PLATELET COUNT 173 10^3/UL (140-415); RED BLOOD COUNT 3.97 10^6/ul (4.70-6.10); RED CELL DISTRIBUTION WIDTH 16.4 % (11.5-14.5); WHITE BLOOD COUNT 12.2 10^3/ul (4.8-10.8)
[2016-08-26 06:39] LABS: CALCIUM 8.2 mg/dl (8.4-10.2); CREATININE 6.39 mg/dl (0.61-1.24); POTASSIUM 4.5 mmol/L (3.5-5.1)
--- NOTE | 2016-08-26 06:51 | CONS ---
Date/Time of Note Date/Time of Note DATE: 08/26/16 TIME: 06:46 Assessment/Plan Assessment/Plan Additional Assessment/Plan 70 yo male with multiple medical problems including DM, PAD, CAD, ESRD with right foot 4th digit dry gangrene and heel ulcer. Right leg cellulitis improved. No acute need for urgent surgical intervention. Recommend continuing with Daily dressing changes betadine. Patient to continue with IV antibiotics. Consultation Date/Type/Reason Admit Date/Time Aug 14, 2016 at 14:49 Initial Consult Date 08/15/16 Type of Consultation: cardiology Referring Provider: CELESTE BHATT MD 24 HR Interval Summary Free Text/Dictation Patient seen at bedside. In no acute distress. Continues on NG tube. No other acute issues at this time. Exam/Review of Systems Vital Signs Vitals Vital Signs Date Time Temp Pulse Resp B/P Pulse Ox O2 Delivery O2 Flow Rate FiO2 08/25/16 20:11 97.6 90 18 135/60 93 08/22/16 08:20 Nasal Cannula 2.0 Intake and Output 08/25/16 08/25/16 08/26/16 15:00 23:00 07:00 Intake Total 100 ml 720 ml 860 ml Balance 100 ml 720 ml 860 ml Exam Right 4th digit dry gangrene with no drainage or acute sign of infection. Right posterior heel mixed fibrotic wound with no drainage noted. Results Result Diagram: 08/26/16 0520 08/24/16 0546 Results 24 hrs Laboratory Tests Test 08/25/16 08:39 08/25/16 12:26 08/25/16 17:27 08/25/16 20:54 Bedside Glucose 187 176 135 164 Test 08/26/16 01:46 08/26/16 05:20 Bedside Glucose 175 White Blood Count 12.2 H Red Blood Count 3.97 L Hemoglobin 11.6 L Hematocrit 37.2 L Mean Corpuscular Volume 93.7 Mean Corpuscular Hemoglobin 29.2 Mean Corpuscular Hemoglobin Concent 31.2 L Red Cell Distribution Width 16.4 H Platelet Count 173 Mean Platelet Volume 10.9 H Neutrophils % 78.8 H Lymphocytes % 12.0 L Monocytes % 6.5 Eosinophils % 1.9 Basophils % 0.3 Nucleated Red Blood Cells % 0.0 Neutrophils # 9.6 H Lymphocytes # 1.5 Monocytes # 0.8 Eosinophils # 0.2 Basophils # 0.0 Nucleated Red Blood Cells # 0.0 Medications Medications Current Medications Acetaminophen/ Hydrocodone Bitart ([place] (5/325)) 1 tab Q6H PRN PO MODERATE PAIN LEVEL 4-6; Start 08/14/16 at 14:30 Zolpidem Tartrate (Ambien) 5 mg QHS PRN PO SLEEP; Start 08/14/16 at 14:30 Acetaminophen (Tylenol Tab) 650 mg Q4 PRN PO PAIN AND OR ELEVATED TEMP; Start 08/14/16 at 14:30 Ascorbic Acid (Vitamin C) 500 mg DAILY PO Last administered on 08/25/16 08:53 ; Admin Dose 500 MG; Start 08/15/16 at 09:00 Aspirin (Aspirin) 81 mg DAILY PO Last administered on 08/25/16 08:53; Admin Dose 81 MG; Start 08/15/16 at 09:00 Bisacodyl (Dulcolax Supp) 10 mg DAILY PRN [place] BM; Start 08/14/16 at 14:30 Calcitriol (Rocaltrol) 0.25 mcg DAILY PO Last administered on 08/25/16 08:48; Admin Dose 0.25 MCG; Start 08/15/16 at 09:00 Loratadine (Claritin) 10 mg DAILY PO Last administered on 08/25/16 08:52; Admin Dose 10 MG; Start 08/15/16 at 09:00 Multivit/Ca Carb/ B Cmplx/FA/Prenat (Sarika-Nahomi) 1 tab DAILY PO Last administered on 08/25/16 08:52; Admin Dose 1 TAB; Start 08/15/16 at 09:00 Saccharomyces Boulardii (Florastor) 500 mg BID PO Last administered on 20:52; Admin Dose 500 MG; Start 08/14/16 at 21:00 Tamsulosin HCl (Flomax) 0.4 mg HS PO Last administered on 08/25/16 20:51; Admin Dose 0.4 MG; Start 08/14/16 at 21:00 Miscellaneous Information 1 ea NOTE XX ; Start 08/14/16 at 15:30 Glucose (Glutose) 15 gm Q15M PRN PO DECREASED GLUCOSE; Start 08/14/16 at 15:30 Glucose (Glutose) 22.5 gm Q15M PRN PO DECREASED GLUCOSE; Start 08/14/16 at 15:30 Dextrose (D50w Syringe) 25 ml Q15M PRN IV DECREASED GLUCOSE; Start 08/14/16 at 15:30 Dextrose (D50w Syringe) 50 ml Q15M PRN IV DECREASED GLUCOSE Last administered on 08/17/16 21:14; Admin Dose 50 ML; Start 08/14/16 at 15:30 Glucagon (Glucagen) 1 mg Q15M PRN IM DECREASED GLUCOSE; Start 08/14/16 at 15:30 Glucose (Glutose) 15 gm Q15M PRN BUCCAL DECREASED GLUCOSE; Start 08/14/16 at 15: 30 Diagnostic Test (Pha) (Accu-Chek) 1 ea 02 XX Last administered on 08/26/16 02: 00; Admin Dose 1 EA; Start 08/16/16 at 02:00 Ondansetron HCl (Zofran Inj) 4 mg Q4H PRN IV NAUSEA AND/OR VOMITING Last administered on 08/22/16 09:34; Admin Dose 4 MG; Start 08/16/16 at 09:30 Ondansetron HCl (Zofran Odt) 4 mg Q6H PRN ODT NAUSEA; Start 08/16/16 at 09:30 Lactobacillus Acidophilus (Florajen3 Capsule) 1 each BID PO Last administered on 08/25/16 20:52; Admin Dose 1 EACH; Start 08/17/16 at 09:00 Atorvastatin Calcium (Lipitor) 10 mg QHS PO Last administered on 08/25/16 20: 51; Admin Dose 10 MG; Start 08/17/16 at 21:00 Clopidogrel Bisulfate (plaVIX) 75 mg DAILY PO Last administered on 08/25/16 08 :53; Admin Dose 75 MG; Start 08/18/16 at 09:00 Insulin Glargine (Lantus) 14 unit QHS SC Last administered on 08/25/16 21:15; Admin Dose 14 UNIT; Start 08/18/16 at 21:00 Metoprolol Tartrate 37.5 mg 37.5 mg BID PO Last administered on 08/25/16 20:52 ; Admin Dose 37.5 MG; Start 08/20/16 at 10:00 Vancomycin HCl (Vancocin) 250 ml @ 125 mls/hr Q96H IVPB Last administered on 21:14; Admin Dose 125 MLS/HR; Start 08/21/16 at 22:00 Morphine Sulfate 1 mg 1 mg Q2H PRN IV PAIN; Start 08/21/16 at 19:00 Piperacillin Sod/ Tazobactam Sod (Zosyn 2.25gm/ 50ml (Pmx)) 50 ml @ 100 mls/hr Q8 IVPB Last administered on 08/26/16 05:12; Admin Dose 100 MLS/HR; Start at 14:00 Apixaban (Eliquis) 2.5 mg BID PO Last administered on 08/25/16 20:50; Admin Dose 2.5 MG; Start 08/23/16 at 11:30 CORIE ROSA DPM Aug 26, 2016 06:51
--- NOTE | 2016-08-26 07:07 | CONS ---
Date/Time of Note Date/Time of Note DATE: 08/26/16 TIME: 07:03 Assessment/Plan Assessment/Plan Chief Complaint/Hosp Course 1) R 4th toe gangrene and RLE cellulitis awaits angiography and amputation can likely switch to po antibiotics post amputation continue with vanco/zosyn at present 08/18 - stable on vanco/zosyn, s/p cardiac stenting pt awaits cardiac clearance prior to proceeding with definitive surgery to RLE 08/19 - pt to set surgery on wednesday continue with vanco/zosyn will likely switch to oral antibiotics soon after surgery for a short period of time 08/21 - no surgery due to new CVA with slurred speech and asymmetry of mouth/face continue with vanco/zosyn 08/24 - continue vanco/zosyn 08/26 - cellulitis has resolved will change to po cipro/doxy for maintenance till definitive surgery can be done or for a month, whichever comes first 2) CoNS in blood only one in four bottles, likely this represents contamination and no need for treatment 3) ESRD to get HD today 4)DM 5) diarrhea stools studies have been negative change probiotic to include multiple types of bacteria 6) CVA 08/22 - just prior to surgery pt was noted to have slurred speech and L facial dropping CT head confirms new R acute infarct 08/24 - strength is improved, speech is still slurred though, more awake 08/26 - less slurred speech, pt to get another swallow eval today Problems: Consultation Date/Type/Reason Admit Date/Time Aug 14, 2016 at 14:49 Initial Consult Date 08/15/16 Type of Consultation: ID Referring Provider: CELESTE BHATT MD 24 HR Interval Summary Free Text/Dictation pt denies pain, has some nausea spoke to nurse, wound was just dressed and looked good, no sign of cellulitis, just the dry gangrene no V, D tolerating TF but unable to take meds orally pt states L arm strength is crappy Exam/Review of Systems Vital Signs Vitals Vital Signs Date Time Temp Pulse Resp B/P Pulse Ox O2 Delivery O2 Flow Rate FiO2 08/25/16 20:11 97.6 90 18 135/60 93 08/22/16 08:20 Nasal Cannula 2.0 Intake and Output 08/25/16 08/25/16 08/26/16 15:00 23:00 07:00 Intake Total 100 ml 720 ml 860 ml Balance 100 ml 720 ml 860 ml Exam Constitutional: alert Respiratory: clear to auscultation Cardiovascular: regular rate and rhythm Gastrointestinal: non-tender, soft Extremities: other (R leg is bandaged) Results Result Diagram: 08/26/16 0520 08/26/16 0520 Results 24 hrs Laboratory Tests Test 08/25/16 08:39 08/25/16 12:26 08/25/16 17:27 08/25/16 20:54 Bedside Glucose 187 176 135 164 Test 08/26/16 01:46 08/26/16 05:20 Bedside Glucose 175 White Blood Count 12.2 H Red Blood Count 3.97 L Hemoglobin 11.6 L Hematocrit 37.2 L Mean Corpuscular Volume 93.7 Mean Corpuscular Hemoglobin 29.2 Mean Corpuscular Hemoglobin Concent 31.2 L Red Cell Distribution Width 16.4 H Platelet Count 173 Mean Platelet Volume 10.9 H Neutrophils % 78.8 H Lymphocytes % 12.0 L Monocytes % 6.5 Eosinophils % 1.9 Basophils % 0.3 Nucleated Red Blood Cells % 0.0 Neutrophils # 9.6 H Lymphocytes # 1.5 Monocytes # 0.8 Eosinophils # 0.2 Basophils # 0.0 Nucleated Red Blood Cells # 0.0 Sodium Level 135 Potassium Level 4.5 Chloride Level 99 Carbon Dioxide Level 24 Anion Gap 17 H Blood Urea Nitrogen 58 H Creatinine 6.39 H Glucose Level 163 Calcium Level 8.2 L Medications Medications Current Medications Acetaminophen/ Hydrocodone Bitart ([place] (5/325)) 1 tab Q6H PRN PO MODERATE PAIN LEVEL 4-6; Start 08/14/16 at 14:30 Zolpidem Tartrate (Ambien) 5 mg QHS PRN PO SLEEP; Start 08/14/16 at 14:30 Acetaminophen (Tylenol Tab) 650 mg Q4 PRN PO PAIN AND OR ELEVATED TEMP; Start 08/14/16 at 14:30 Ascorbic Acid (Vitamin C) 500 mg DAILY PO Last administered on 08/25/16 08:53 ; Admin Dose 500 MG; Start 08/15/16 at 09:00 Aspirin (Aspirin) 81 mg DAILY PO Last administered on 08/25/16 08:53; Admin Dose 81 MG; Start 08/15/16 at 09:00 Bisacodyl (Dulcolax Supp) 10 mg DAILY PRN [place] BM; Start 08/14/16 at 14:30 Calcitriol (Rocaltrol) 0.25 mcg DAILY PO Last administered on 08/25/16 08:48; Admin Dose 0.25 MCG; Start 08/15/16 at 09:00 Loratadine (Claritin) 10 mg DAILY PO Last administered on 08/25/16 08:52; Admin Dose 10 MG; Start 08/15/16 at 09:00 Multivit/Ca Carb/ B Cmplx/FA/Prenat (Sarika-Nahomi) 1 tab DAILY PO Last administered on 08/25/16 08:52; Admin Dose 1 TAB; Start 08/15/16 at 09:00 Saccharomyces Boulardii (Florastor) 500 mg BID PO Last administered on 20:52; Admin Dose 500 MG; Start 08/14/16 at 21:00 Tamsulosin HCl (Flomax) 0.4 mg HS PO Last administered on 08/25/16 20:51; Admin Dose 0.4 MG; Start 08/14/16 at 21:00 Miscellaneous Information 1 ea NOTE XX ; Start 08/14/16 at 15:30 Glucose (Glutose) 15 gm Q15M PRN PO DECREASED GLUCOSE; Start 08/14/16 at 15:30 Glucose (Glutose) 22.5 gm Q15M PRN PO DECREASED GLUCOSE; Start 08/14/16 at 15:30 Dextrose (D50w Syringe) 25 ml Q15M PRN IV DECREASED GLUCOSE; Start 08/14/16 at 15:30 Dextrose (D50w Syringe) 50 ml Q15M PRN IV DECREASED GLUCOSE Last administered on 08/17/16 21:14; Admin Dose 50 ML; Start 08/14/16 at 15:30 Glucagon (Glucagen) 1 mg Q15M PRN IM DECREASED GLUCOSE; Start 08/14/16 at 15:30 Glucose (Glutose) 15 gm Q15M PRN BUCCAL DECREASED GLUCOSE; Start 08/14/16 at 15: 30 Diagnostic Test (Pha) (Accu-Chek) 1 ea 02 XX Last administered on 08/26/16 02: 00; Admin Dose 1 EA; Start 08/16/16 at 02:00 Ondansetron HCl (Zofran Inj) 4 mg Q4H PRN IV NAUSEA AND/OR VOMITING Last administered on 08/22/16 09:34; Admin Dose 4 MG; Start 08/16/16 at 09:30 Ondansetron HCl (Zofran Odt) 4 mg Q6H PRN ODT NAUSEA; Start 08/16/16 at 09:30 Lactobacillus Acidophilus (Florajen3 Capsule) 1 each BID PO Last administered on 08/25/16 20:52; Admin Dose 1 EACH; Start 08/17/16 at 09:00 Atorvastatin Calcium (Lipitor) 10 mg QHS PO Last administered on 08/25/16 20: 51; Admin Dose 10 MG; Start 08/17/16 at 21:00 Clopidogrel Bisulfate (plaVIX) 75 mg DAILY PO Last administered on 08/25/16 08 :53; Admin Dose 75 MG; Start 08/18/16 at 09:00 Insulin Glargine (Lantus) 14 unit QHS SC Last administered on 08/25/16 21:15; Admin Dose 14 UNIT; Start 08/18/16 at 21:00 Metoprolol Tartrate 37.5 mg 37.5 mg BID PO Last administered on 08/25/16 20:52 ; Admin Dose 37.5 MG; Start 08/20/16 at 10:00 Vancomycin HCl (Vancocin) 250 ml @ 125 mls/hr Q96H IVPB Last administered on 21:14; Admin Dose 125 MLS/HR; Start 08/21/16 at 22:00 Morphine Sulfate 1 mg 1 mg Q2H PRN IV PAIN; Start 08/21/16 at 19:00 Piperacillin Sod/ Tazobactam Sod (Zosyn 2.25gm/ 50ml (Pmx)) 50 ml @ 100 mls/hr Q8 IVPB Last administered on 08/26/16 05:12; Admin Dose 100 MLS/HR; Start at 14:00 Apixaban (Eliquis) 2.5 mg BID PO Last administered on 08/25/16 20:50; Admin Dose 2.5 MG; Start 08/23/16 at 11:30 PEDRO PATRICK MD Aug 26, 2016 07:07
[2016-08-26] MEDS: INSULIN ASPART [NOVOLOG] 3 ML PEN SC SCH ×4 (08:23→21:00)
[2016-08-26] MEDS: MULTIVIT/CA CARB/B CMPLX/FA TAB PO SCH (08:56)
[2016-08-26] MEDS: CALCITRIOL 0.25 MCG CAP PO SCH (08:56)
[2016-08-26] MEDS: DOXYCYCLINE 100 MG TAB NGT SCH ×2 (08:56→21:09)
[2016-08-26] MEDS: CREON (24K-76K-120K) 1 CAP PO SCH ×3 (08:56→17:48)
[2016-08-26] MEDS: SACCHAROMYCES BOULARDII 250 MG CAP PO SCH ×2 (08:56→21:08)
[2016-08-26] MEDS: CALCIUM ACETATE 667 MG CAP PO SCH ×3 (08:56→17:48)
[2016-08-26] MEDS: ASPIRIN 81 MG TAB PO SCH (08:57)
[2016-08-26] MEDS: METOPROLOL 25 MG TAB PO SCH ×2 (08:57→21:09)
[2016-08-26] MEDS: CLOPIDOGREL 75 MG TAB PO SCH (08:58)
[2016-08-26] MEDS: APIXABAN 5 MG TABLET PO SCH ×2 (08:58→21:17)
[2016-08-26] MEDS: LORATADINE 10 MG TAB PO SCH (08:58)
[2016-08-26] MEDS: ASCORBIC ACID 500 MG TAB PO SCH (08:58)
[2016-08-26] MEDS: L ACIDOPHIL/B LACTIS/B LONGUM CAPSULE PO SCH ×2 (09:00→21:36)
--- NOTE | 2016-08-26 13:14 | PN ---
Date/Time of Note Date/Time of Note DATE: 08/26/16 TIME: 13:05 Assessment/Plan VTE Prophylaxis VTE Prophylaxis Intervention: other Lines/Catheters IV Catheter Type (from [facility]): [facility] Urinary Cath still in place: No Assessment/Plan Chief Complaint/Hosp Course 1. ESRD on maintenance hemodialysis [facility] . he is having hemodialysis now . 2. CAD he has had NSTEMI , he had a coronary angiogram and had 2 stents placed in the LAD. He is now on aspirin and Plavix. 3. IDDM , his blood sugars have been low. I will decrease his dose of Lantus insulin. 4. PAD , gangrene of R foot 4th toe . He was scheduled for surgery however he had a CVA and surgery was canceled . 5. cellulitis of R lower leg , improving on antibiotics. 6. postural hypotension . 7. Atrial fib/flutter, he is now on Eliquis . 8. Depression , he seems better . We talked about stopping dialysis . He wants to continue dialysis for now . 9. 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 10. dysphagia , with NG tube and to be re-evaluated by speech therapy . He is able to swallow . The NG tube is plugged . I ordered to remove the NG tube for now . I will replace if needed . Patient is considering a PEG placement if needed . Problems: Subjective 24 Hr Interval Summary Free Text/Dictation He is now having hemodialysis . He is awake and responsive . Constitutional: no complaints Respiratory: no complaints Cardiovascular: no complaints Gastrointestinal: no complaints Genitourinary: no complaints Neurologic: focal-weakness Exam/Review of Systems Vital Signs Vitals Vital Signs Date Time Temp Pulse Resp B/P Pulse Ox O2 Delivery O2 Flow Rate FiO2 08/26/16 08:05 98.5 66 18 147/66 94 08/22/16 08:20 Nasal Cannula 2.0 Intake and Output 08/25/16 08/25/16 08/26/16 15:00 23:00 07:00 Intake Total 100 ml 720 ml 860 ml Balance 100 ml 720 ml 860 ml Exam L leg S/P L BKA , R leg erythema over espinal is resolving . Constitutional: alert, frail, oriented Neck: supple Respiratory: clear to auscultation, normal air movement Cardiovascular: irregular rhythm Gastrointestinal: soft Neurological: focal weakness Results Result Diagram: 6/21/17 0520 08/26/16 0520 Results 24 hrs Laboratory Tests Test 08/25/16 17:27 08/25/16 20:54 08/26/16 01:46 08/26/16 05:20 Bedside Glucose 135 164 175 White Blood Count 12.2 H Red Blood Count 3.97 L Hemoglobin 11.6 L Hematocrit 37.2 L Mean Corpuscular Volume 93.7 Mean Corpuscular Hemoglobin 29.2 Mean Corpuscular Hemoglobin Concent 31.2 L Red Cell Distribution Width 16.4 H Platelet Count 173 Mean Platelet Volume 10.9 H Neutrophils % 78.8 H Lymphocytes % 12.0 L Monocytes % 6.5 Eosinophils % 1.9 Basophils % 0.3 Nucleated Red Blood Cells % 0.0 Neutrophils # 9.6 H Lymphocytes # 1.5 Monocytes # 0.8 Eosinophils # 0.2 Basophils # 0.0 Nucleated Red Blood Cells # 0.0 Sodium Level 135 Potassium Level 4.5 Chloride Level 99 Carbon Dioxide Level 24 Anion Gap 17 H Blood Urea Nitrogen 58 H Creatinine 6.39 H Glucose Level 163 Calcium Level 8.2 L Test 08/26/16 08:15 08/26/16 11:59 Bedside Glucose 170 177 Medications Medications Current Medications Acetaminophen/ Hydrocodone Bitart ([place] (5/325)) 1 tab Q6H PRN PO MODERATE PAIN LEVEL 4-6; Start 08/14/16 at 14:30 Zolpidem Tartrate (Ambien) 5 mg QHS PRN PO SLEEP; Start 08/14/16 at 14:30 Acetaminophen (Tylenol Tab) 650 mg Q4 PRN PO PAIN AND OR ELEVATED TEMP; Start 08/14/16 at 14:30 Ascorbic Acid (Vitamin C) 500 mg DAILY PO Last administered on 08/26/16 08:58 ; Admin Dose 500 MG; Start 08/15/16 at 09:00 Aspirin (Aspirin) 81 mg DAILY PO Last administered on 08/26/16 08:57; Admin Dose 81 MG; Start 08/15/16 at 09:00 Bisacodyl (Dulcolax Supp) 10 mg DAILY PRN [place] BM; Start 08/14/16 at 14:30 Calcitriol (Rocaltrol) 0.25 mcg DAILY PO Last administered on 08/26/16 08:56; Admin Dose 0.25 MCG; Start 08/15/16 at 09:00 Loratadine (Claritin) 10 mg DAILY PO Last administered on 08/26/16 08:58; Admin Dose 10 MG; Start 08/15/16 at 09:00 Multivit/Ca Carb/ B Cmplx/FA/Prenat (Sarika-Nahomi) 1 tab DAILY PO Last administered on 08/26/16 08:56; Admin Dose 1 TAB; Start 08/15/16 at 09:00 Saccharomyces Boulardii (Florastor) 500 mg BID PO Last administered on 08:56; Admin Dose 500 MG; Start 08/14/16 at 21:00 Tamsulosin HCl (Flomax) 0.4 mg HS PO Last administered on 08/25/16 20:51; Admin Dose 0.4 MG; Start 08/14/16 at 21:00 Miscellaneous Information 1 ea NOTE XX ; Start 08/14/16 at 15:30 Glucose (Glutose) 15 gm Q15M PRN PO DECREASED GLUCOSE; Start 08/14/16 at 15:30 Glucose (Glutose) 22.5 gm Q15M PRN PO DECREASED GLUCOSE; Start 08/14/16 at 15:30 Dextrose (D50w Syringe) 25 ml Q15M PRN IV DECREASED GLUCOSE; Start 08/14/16 at 15:30 Dextrose (D50w Syringe) 50 ml Q15M PRN IV DECREASED GLUCOSE Last administered on 08/17/16 21:14; Admin Dose 50 ML; Start 08/14/16 at 15:30 Glucagon (Glucagen) 1 mg Q15M PRN IM DECREASED GLUCOSE; Start 08/14/16 at 15:30 Glucose (Glutose) 15 gm Q15M PRN BUCCAL DECREASED GLUCOSE; Start 08/14/16 at 15: 30 Diagnostic Test (Pha) (Accu-Chek) 1 ea 02 XX Last administered on 08/26/16 02: 00; Admin Dose 1 EA; Start 08/16/16 at 02:00 Ondansetron HCl (Zofran Inj) 4 mg Q4H PRN IV NAUSEA AND/OR VOMITING Last administered on 08/22/16 09:34; Admin Dose 4 MG; Start 08/16/16 at 09:30 Ondansetron HCl (Zofran Odt) 4 mg Q6H PRN ODT NAUSEA; Start 08/16/16 at 09:30 Lactobacillus Acidophilus (Florajen3 Capsule) 1 each BID PO Last administered on 08/26/16 09:00; Admin Dose 1 EACH; Start 08/17/16 at 09:00 Atorvastatin Calcium (Lipitor) 10 mg QHS PO Last administered on 08/25/16 20: 51; Admin Dose 10 MG; Start 08/17/16 at 21:00 Clopidogrel Bisulfate (plaVIX) 75 mg DAILY PO Last administered on 08/26/16 08 :58; Admin Dose 75 MG; Start 08/18/16 at 09:00 Insulin Glargine (Lantus) 14 unit QHS SC Last administered on 08/25/16 21:15; Admin Dose 14 UNIT; Start 08/18/16 at 21:00 Metoprolol Tartrate (Lopressor) 37.5 mg BID PO Last administered on 08/26/16 08:57; Admin Dose 37.5 MG; Start 08/20/16 at 10:00 Morphine Sulfate (morphine) 1 mg Q2H PRN IV PAIN; Start 08/21/16 at 19:00 Apixaban (Eliquis) 2.5 mg BID PO Last administered on 08/26/16 08:58; Admin Dose 2.5 MG; Start 08/23/16 at 11:30 Ciprofloxacin (Cipro) 500 mg DAILY@06 NGT ; Start 08/27/16 at 06:00 Doxycycline Hyclate (Vibramycin) 100 mg BID NGT Last administered on 08/26/16 08:56; Admin Dose 100 MG; Start 08/26/16 at 09:00 CELESTE BHATT MD Aug 26, 2016 13:14
[2016-08-26] MEDS: ATORVASTATIN 10 MG TAB PO SCH (21:08)
[2016-08-26] MEDS: TAMSULOSIN (SR) 0.4 MG CAP PO SCH (21:09)
[2016-08-26] MEDS: INSULIN GLARGINE [LANtus] 3 ML PEN SC SCH (21:21)
--- NOTE | 2016-08-26 23:50 | CONS ---
Date/Time of Note Date/Time of Note DATE: 08/26/16 TIME: 23:50 Assessment/Plan Assessment/Plan Chief Complaint/Hosp Course # Non-STEMI s/p PCI to LAD with SYDNI x 2 # Acute CVA # Atrial flutter - new onset # Chronic renal failure on dialysis. # Peripheral vascular disease status post left BKA, status post right fem-tib bypass, now with right toe gangrene. # Orthostatic hypotension. # Anemia of chronic disease. # Moderate aortic stenosis. # Hyperlipidemiacontrolled. # Type 2 diabetes. # Mild aortic regurgitation on echocardiography. # Benign prostatic hypertrophy # Right toe gangrene >> cont asa 81mg daily, plavix 75mg daily given recent PCI >> on Eliquis 2.5 BID for anticoag >> metoprolol for heart rate control >> cont statin >> vascular consulting, CTA pending Problems: Consultation Date/Type/Reason Admit Date/Time Aug 14, 2016 at 14:49 Initial Consult Date 08/15/16 Type of Consultation: cardiology Referring Provider: CELESTE BHATT MD 24 HR Interval Summary Free Text/Dictation no acute events. sleeping/somnolent. no complaints Subjective hx not possible: other Detailed Summary Additional Comments all other systems negative Exam/Review of Systems Vital Signs Vitals Vital Signs Date Time Temp Pulse Resp B/P Pulse Ox O2 Delivery O2 Flow Rate FiO2 08/26/16 19:21 97.8 66 20 138/64 96 08/22/16 08:20 Nasal Cannula 2.0 Intake and Output 08/25/16 08/25/16 08/26/16 14:59 22:59 06:59 Intake Total 100 ml 720 ml 860 ml Balance 100 ml 720 ml 860 ml Exam Constitutional: sleeping Head: normocephalic Eyes: nl conjunctiva ENMT: nl external ears & nose, Neck: supple Respiratory: clear to auscultation Cardiovascular: regular rate and rhythm, distal RE with dressing, 4th toe ulceration + Gastrointestinal: soft Musculoskeletal: nl extremities to inspection Results Result Diagram: 08/26/16 0520 08/26/16 0520 Results 24 hrs Laboratory Tests Test 08/26/16 01:46 08/26/16 05:20 08/26/16 08:15 08/26/16 11:59 Bedside Glucose 175 170 177 White Blood Count 12.2 H Red Blood Count 3.97 L Hemoglobin 11.6 L Hematocrit 37.2 L Mean Corpuscular Volume 93.7 Mean Corpuscular Hemoglobin 29.2 Mean Corpuscular Hemoglobin Concent 31.2 L Red Cell Distribution Width 16.4 H Platelet Count 173 Mean Platelet Volume 10.9 H Neutrophils % 78.8 H Lymphocytes % 12.0 L Monocytes % 6.5 Eosinophils % 1.9 Basophils % 0.3 Nucleated Red Blood Cells % 0.0 Neutrophils # 9.6 H Lymphocytes # 1.5 Monocytes # 0.8 Eosinophils # 0.2 Basophils # 0.0 Nucleated Red Blood Cells # 0.0 Sodium Level 135 Potassium Level 4.5 Chloride Level 99 Carbon Dioxide Level 24 Anion Gap 17 H Blood Urea Nitrogen 58 H Creatinine 6.39 H Glucose Level 163 Calcium Level 8.2 L Test 08/26/16 17:28 08/26/16 21:10 Bedside Glucose 131 163 Medications Medications Current Medications Acetaminophen/ Hydrocodone Bitart ([place] (5/325)) 1 tab Q6H PRN PO MODERATE PAIN LEVEL 4-6; Start 08/14/16 at 14:30 Zolpidem Tartrate (Ambien) 5 mg QHS PRN PO SLEEP; Start 08/14/16 at 14:30 Acetaminophen (Tylenol Tab) 650 mg Q4 PRN PO PAIN AND OR ELEVATED TEMP; Start 08/14/16 at 14:30 Ascorbic Acid (Vitamin C) 500 mg DAILY PO Last administered on 08/26/16 08:58 ; Admin Dose 500 MG; Start 08/15/16 at 09:00 Aspirin (Aspirin) 81 mg DAILY PO Last administered on 08/26/16 08:57; Admin Dose 81 MG; Start 08/15/16 at 09:00 Bisacodyl (Dulcolax Supp) 10 mg DAILY PRN [place] BM; Start 08/14/16 at 14:30 Calcitriol (Rocaltrol) 0.25 mcg DAILY PO Last administered on 08/26/16 08:56; Admin Dose 0.25 MCG; Start 08/15/16 at 09:00 Loratadine (Claritin) 10 mg DAILY PO Last administered on 08/26/16 08:58; Admin Dose 10 MG; Start 08/15/16 at 09:00 Multivit/Ca Carb/ B Cmplx/FA/Prenat (Sarika-Nahomi) 1 tab DAILY PO Last administered on 08/26/16 08:56; Admin Dose 1 TAB; Start 08/15/16 at 09:00 Saccharomyces Boulardii (Florastor) 500 mg BID PO Last administered on 21:08; Admin Dose 500 MG; Start 08/14/16 at 21:00 Tamsulosin HCl (Flomax) 0.4 mg HS PO Last administered on 08/26/16 21:09; Admin Dose 0.4 MG; Start 08/14/16 at 21:00 Miscellaneous Information 1 ea NOTE XX ; Start 08/14/16 at 15:30 Glucose (Glutose) 15 gm Q15M PRN PO DECREASED GLUCOSE; Start 08/14/16 at 15:30 Glucose (Glutose) 22.5 gm Q15M PRN PO DECREASED GLUCOSE; Start 08/14/16 at 15:30 Dextrose (D50w Syringe) 25 ml Q15M PRN IV DECREASED GLUCOSE; Start 08/14/16 at 15:30 Dextrose (D50w Syringe) 50 ml Q15M PRN IV DECREASED GLUCOSE Last administered on 08/17/16 21:14; Admin Dose 50 ML; Start 08/14/16 at 15:30 Glucagon (Glucagen) 1 mg Q15M PRN IM DECREASED GLUCOSE; Start 08/14/16 at 15:30 Glucose (Glutose) 15 gm Q15M PRN BUCCAL DECREASED GLUCOSE; Start 08/14/16 at 15: 30 Diagnostic Test (Pha) (Accu-Chek) 1 ea 02 XX Last administered on 08/26/16 02: 00; Admin Dose 1 EA; Start 08/16/16 at 02:00 Ondansetron HCl (Zofran Inj) 4 mg Q4H PRN IV NAUSEA AND/OR VOMITING Last administered on 08/22/16 09:34; Admin Dose 4 MG; Start 08/16/16 at 09:30 Ondansetron HCl (Zofran Odt) 4 mg Q6H PRN ODT NAUSEA; Start 08/16/16 at 09:30 Lactobacillus Acidophilus (Florajen3 Capsule) 1 each BID PO Last administered on 08/26/16 21:36; Admin Dose 1 EACH; Start 08/17/16 at 09:00 Atorvastatin Calcium (Lipitor) 10 mg QHS PO Last administered on 08/26/16 21: 08; Admin Dose 10 MG; Start 08/17/16 at 21:00 Clopidogrel Bisulfate (plaVIX) 75 mg DAILY PO Last administered on 08/26/16 08 :58; Admin Dose 75 MG; Start 08/18/16 at 09:00 Insulin Glargine (Lantus) 14 unit QHS SC Last administered on 08/26/16 21:21; Admin Dose 14 UNIT; Start 08/18/16 at 21:00 Metoprolol Tartrate (Lopressor) 37.5 mg BID PO Last administered on 08/26/16 21:09; Admin Dose 37.5 MG; Start 08/20/16 at 10:00 Morphine Sulfate (morphine) 1 mg Q2H PRN IV PAIN; Start 08/21/16 at 19:00 Apixaban (Eliquis) 2.5 mg BID PO Last administered on 08/26/16 21:17; Admin Dose 2.5 MG; Start 08/23/16 at 11:30 Ciprofloxacin (Cipro) 500 mg DAILY@06 NGT ; Start 08/27/16 at 06:00 Doxycycline Hyclate (Vibramycin) 100 mg BID NGT Last administered on 08/26/16 21:09; Admin Dose 100 MG; Start 08/26/16 at 09:00 Procedures Procedures imaging reports reviewed in emr AMY PEREZ Aug 26, 2016 23:50
[2016-08-27] MEDS: ACCU-CHEK XX SCH (02:00)
[2016-08-27] MEDS: CIPROFLOXACIN 500 MG TAB NGT SCH (05:15)
[2016-08-27 07:26] VITALS: BP 138/61; RESP 20
[2016-08-27 07:54] LABS: ADD SCAN DIFF NO
[2016-08-27 08:11] LABS: BASOPHILS % 0.4 % (0.0-2.0); EOSINOPHILS # 0.1 10^3/ul (0.0-0.5); EOSINOPHILS % 1.3 % (0.0-7.0); HEMATOCRIT 38.7 % (42.0-52.0); HEMOGLOBIN 12.1 g/dl (14.0-18.0); LYMPHOCYTES # 1.6 10^3/ul (0.8-2.9); LYMPHOCYTES % 14.9 % (15.0-51.0); MEAN CORPUSCULAR HEMOGLOBIN 28.9 pg (29.0-33.0); MEAN CORPUSCULAR HGB CONC 31.3 g/dl (32.0-37.0); MEAN CORPUSCULAR VOLUME 92.4 fl (82.0-101.0); MEAN PLATELET VOLUME 10.8 fl (7.4-10.4); MONOCYTE # 0.7 10^3/ul (0.3-0.9); MONOCYTES % 6.8 % (0.0-11.0); NEUTROPHIL # 7.9 10^3/ul (1.6-7.5); NEUTROPHILS % 76.1 % (39.0-77.0); PLATELET COUNT 203 10^3/UL (140-415); RED BLOOD COUNT 4.19 10^6/ul (4.70-6.10); RED CELL DISTRIBUTION WIDTH 16.4 % (11.5-14.5); WHITE BLOOD COUNT 10.4 10^3/ul (4.8-10.8)
[2016-08-27] MEDS: INSULIN ASPART [NOVOLOG] 3 ML PEN SC SCH ×4 (08:11→20:30)
[2016-08-27] MEDS: ASCORBIC ACID 500 MG TAB PO SCH (08:36)
[2016-08-27] MEDS: CREON (24K-76K-120K) 1 CAP PO SCH ×3 (08:36→17:16)
[2016-08-27] MEDS: ASPIRIN 81 MG TAB PO SCH (08:36)
[2016-08-27] MEDS: LORATADINE 10 MG TAB PO SCH (08:36)
[2016-08-27] MEDS: CALCITRIOL 0.25 MCG CAP PO SCH (08:36)
[2016-08-27] MEDS: DOXYCYCLINE 100 MG TAB NGT SCH ×2 (08:36→21:34)
[2016-08-27] MEDS: CLOPIDOGREL 75 MG TAB PO SCH (08:36)
[2016-08-27] MEDS: APIXABAN 5 MG TABLET PO SCH ×2 (08:36→21:34)
[2016-08-27] MEDS: MULTIVIT/CA CARB/B CMPLX/FA TAB PO SCH (08:36)
[2016-08-27] MEDS: CALCIUM ACETATE 667 MG CAP PO SCH ×3 (08:37→17:18)
[2016-08-27] MEDS: L ACIDOPHIL/B LACTIS/B LONGUM CAPSULE PO SCH ×2 (08:37→21:33)
[2016-08-27] MEDS: SACCHAROMYCES BOULARDII 250 MG CAP PO SCH ×2 (08:37→21:33)
[2016-08-27] MEDS: METOPROLOL 25 MG TAB PO SCH ×2 (08:37→21:34)
--- NOTE | 2016-08-27 08:44 | PN ---
Date/Time of Note Date/Time of Note DATE: 08/27/16 TIME: 08:39 Assessment/Plan VTE Prophylaxis VTE Prophylaxis Intervention: other Lines/Catheters [facility] Type (from [facility] Urinary Cath still in place: No Assessment/Plan Chief Complaint/Hosp Course 1. ESRD on maintenance hemodialysis [facility] . I will order hemodialysis for tomorrow. 2. CAD he has had NSTEMI , he had a coronary angiogram and had 2 stents placed in the LAD. He is now on aspirin and Plavix. 3. IDDM , his blood sugars have been low. I will decrease his dose of Lantus insulin. 4. PAD , gangrene of R foot 4th toe . He was scheduled for surgery however he had a CVA and surgery was canceled . 5. cellulitis of R lower leg , improving on antibiotics. 6. postural hypotension . 7. Atrial fib/flutter, he is now on Eliquis . 8. Depression , he seems better . We talked about stopping dialysis . He wants to continue dialysis for now . 9. 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 10. dysphagia , with NG tube and to be re-evaluated by speech therapy . He is able to swallow . The NG tube is plugged . I ordered to remove the NG tube for now . I will replace if needed . Patient is considering a PEG placement if needed . Problems: Subjective 24 Hr Interval Summary Free Text/Dictation His blood sugar is low this morning. The blood sugar was 59. He received some juice. He is now eating. He is awake and responsive. Constitutional: poor po Respiratory: no complaints Cardiovascular: no complaints Gastrointestinal: no complaints Genitourinary: no complaints Musculoskeletal: no complaints Exam/Review of Systems Vital Signs Vitals Vital Signs Date Time Temp Pulse Resp B/P Pulse Ox O2 Delivery O2 Flow Rate FiO2 08/27/16 07:26 97.9 104 20 138/61 94 Intake and Output 08/26/16 08/26/16 08/27/16 15:00 23:00 07:00 Intake Total 440 ml Output Total 3400 ml Balance -2960 ml Results Result Diagram: 08/27/16 0742 08/26/16 0520 Results 24 hrs Laboratory Tests Test 08/26/16 11:59 08/26/16 17:28 08/26/16 21:10 08/27/16 07:42 Bedside Glucose 177 131 163 White Blood Count 10.4 Red Blood Count 4.19 L Hemoglobin 12.1 L Hematocrit 38.7 L Mean Corpuscular Volume 92.4 Mean Corpuscular Hemoglobin 28.9 L Mean Corpuscular Hemoglobin Concent 31.3 L Red Cell Distribution Width 16.4 H Platelet Count 203 Mean Platelet Volume 10.8 H Neutrophils % 76.1 Lymphocytes % 14.9 L Monocytes % 6.8 Eosinophils % 1.3 Basophils % 0.4 Nucleated Red Blood Cells % 0.0 Neutrophils # 7.9 H Lymphocytes # 1.6 Monocytes # 0.7 Eosinophils # 0.1 Basophils # 0.0 Nucleated Red Blood Cells # 0.0 Test 08/27/16 08:09 08/27/16 08:33 Bedside Glucose 59 L 71 Medications Medications Current Medications Acetaminophen/ Hydrocodone Bitart ([place] (5/325)) 1 tab Q6H PRN PO MODERATE PAIN LEVEL 4-6; Start 08/14/16 at 14:30 Zolpidem Tartrate (Ambien) 5 mg QHS PRN PO SLEEP; Start 08/14/16 at 14:30 Acetaminophen (Tylenol Tab) 650 mg Q4 PRN PO PAIN AND OR ELEVATED TEMP; Start 08/14/16 at 14:30 Ascorbic Acid (Vitamin C) 500 mg DAILY PO Last administered on 08/27/16 08:36 ; Admin Dose 500 MG; Start 08/15/16 at 09:00 Aspirin (Aspirin) 81 mg DAILY PO Last administered on 08/27/16 08:36; Admin Dose 81 MG; Start 08/15/16 at 09:00 Bisacodyl (Dulcolax Supp) 10 mg DAILY PRN [place] BM; Start 08/14/16 at 14:30 Calcitriol (Rocaltrol) 0.25 mcg DAILY PO Last administered on 08/27/16 08:36; Admin Dose 0.25 MCG; Start 08/15/16 at 09:00 Loratadine (Claritin) 10 mg DAILY PO Last administered on 08/27/16 08:36; Admin Dose 10 MG; Start 08/15/16 at 09:00 Multivit/Ca Carb/ B Cmplx/FA/Prenat (Sarika-Nahomi) 1 tab DAILY PO Last administered on 08/27/16 08:36; Admin Dose 1 TAB; Start 08/15/16 at 09:00 Saccharomyces Boulardii (Florastor) 500 mg BID PO Last administered on 08:37; Admin Dose 500 MG; Start 08/14/16 at 21:00 Tamsulosin HCl (Flomax) 0.4 mg HS PO Last administered on 08/26/16 21:09; Admin Dose 0.4 MG; Start 08/14/16 at 21:00 Miscellaneous Information 1 ea NOTE XX ; Start 08/14/16 at 15:30 Glucose (Glutose) 15 gm Q15M PRN PO DECREASED GLUCOSE; Start 08/14/16 at 15:30 Glucose (Glutose) 22.5 gm Q15M PRN PO DECREASED GLUCOSE; Start 08/14/16 at 15:30 Dextrose (D50w Syringe) 25 ml Q15M PRN IV DECREASED GLUCOSE; Start 08/14/16 at 15:30 Dextrose (D50w Syringe) 50 ml Q15M PRN IV DECREASED GLUCOSE Last administered on 08/17/16 21:14; Admin Dose 50 ML; Start 08/14/16 at 15:30 Glucagon (Glucagen) 1 mg Q15M PRN IM DECREASED GLUCOSE; Start 08/14/16 at 15:30 Glucose (Glutose) 15 gm Q15M PRN BUCCAL DECREASED GLUCOSE; Start 08/14/16 at 15: 30 Diagnostic Test (Pha) (Accu-Chek) 1 ea 02 XX Last administered on 08/26/16 02: 00; Admin Dose 1 EA; Start 08/16/16 at 02:00 Ondansetron HCl (Zofran Inj) 4 mg Q4H PRN IV NAUSEA AND/OR VOMITING Last administered on 08/22/16 09:34; Admin Dose 4 MG; Start 08/16/16 at 09:30 Ondansetron HCl (Zofran Odt) 4 mg Q6H PRN ODT NAUSEA; Start 08/16/16 at 09:30 Lactobacillus Acidophilus (Florajen3 Capsule) 1 each BID PO Last administered on 08/27/16 08:37; Admin Dose 1 EACH; Start 08/17/16 at 09:00 Atorvastatin Calcium (Lipitor) 10 mg QHS PO Last administered on 08/26/16 21: 08; Admin Dose 10 MG; Start 08/17/16 at 21:00 Clopidogrel Bisulfate (plaVIX) 75 mg DAILY PO Last administered on 08/27/16 08 :36; Admin Dose 75 MG; Start 08/18/16 at 09:00 Insulin Glargine (Lantus) 14 unit QHS SC Last administered on 08/26/16 21:21; Admin Dose 14 UNIT; Start 08/18/16 at 21:00 Metoprolol Tartrate (Lopressor) 37.5 mg BID PO Last administered on 08/27/16 08:37; Admin Dose 37.5 MG; Start 08/20/16 at 10:00 Morphine Sulfate (morphine) 1 mg Q2H PRN IV PAIN; Start 08/21/16 at 19:00 Apixaban (Eliquis) 2.5 mg BID PO Last administered on 08/27/16 08:36; Admin Dose 2.5 MG; Start 08/23/16 at 11:30 Ciprofloxacin (Cipro) 500 mg DAILY@06 NGT Last administered on 08/27/16 05:15 ; Admin Dose 500 MG; Start 08/27/16 at 06:00 Doxycycline Hyclate (Vibramycin) 100 mg BID NGT Last administered on 08/27/16 08:36; Admin Dose 100 MG; Start 08/26/16 at 09:00 CELESTE BHATT MD Aug 27, 2016 08:44
[2016-08-27] MEDS: DEXTROSE 5%-0.45% NACL 1,000 ML IV SCH (10:06)
--- NOTE | 2016-08-27 15:16 | RADRPT ---
PROCEDURE: Carotid Doppler ultrasound CLINICAL INDICATION: Carotid stenosis. TECHNIQUE: Carotid duplex criteria: Multiple real time, dill scale, and color flow and spectral w aveform analysis Doppler ultrasound images of the carotid bifurcations were obtained. Measurements of carotid stenosis is based on peak systolic and diastolic velocity parameters that correlate the r esidual internal carotid diameter with [place] symptomatic carotid endarterectomy trial (NASC ET) based stenosis levels. COMPARISON: None. FINDINGS: On the right, there is heterogeneous irregular plaque at the internal carotid artery bulb . Visual estimate of the plaque is less than 50%. The peak systolic velocities are: Proximal CCA: 52.6 cm/sec. Distal CCA: 42.7 cm/sec. Proximal ICA/bulb: 48.6 cm/sec. Mid ICA: 59.4 cm/sec. Distal ICA: 45.1 cm/sec. ICA/CCA ratio: 1.4. There is no spectral broadening . The external carotid artery is patent. The vertebral artery has antegrade flow. On the left, there is heterogeneous irregular plaque at the internal carotid artery bulb . Visual e stimate of the plaque is less than 50%. The peak systolic velocities are: Proximal CCA: 55.5 cm/sec. Distal CCA: 48.7 cm/sec. Proximal ICA/bulb: 47.8 cm/sec. Mid ICA: 43.0 cm/sec. Distal ICA: 40.9 cm/sec. ICA/CCA ratio: 1.0. There is no spectral broadening . The external carotid artery is patent. The vertebral artery has antegrade flow. IMPRESSION: 1. Less than 50% stenosis of the right internal carotid artery. 2. Less than 50% stenosis of the left internal carotid artery. 3. Antegrade flow in the vertebral arteries. PRIMARY PARAMETERS ADDITIONAL PARAMETERS DEGREE OF STENOSIS: ICA PSV cm/s PLAQUE ESTIMATE % ICA/CCA PSV RATIO ICA E DV cm/s NORMAL <125 cm/s NONE < 2.0 < 40 cm/s < 50% >125 cm/s < 50% > 2.0 > 40 cm/s 50% - 69% 125 -230 cm/s > 50% 2.0 - 4.0 40 - 100 cm/s >70% < OCCLUSION > 230 cm/s > 70% > 4.0 > 100 cm/s TOTAL OCCLUSION UNDETECTABLE VISIBLE PLAQUE 100% N/A N/A Ap Bhat Physician Date Time Electronically viewed and signed by Ap Bhat Physician on 08/27/2016 15:16 KEDAR/
--- NOTE | 2016-08-27 16:31 | CONS ---
Date/Time of Note Date/Time of Note DATE: 08/27/16 TIME: 16:27 Assessment/Plan Assessment/Plan Chief Complaint/Hosp Course # Non-STEMI s/p PCI to LAD with SYDNI x 2 # Acute CVA likely embolic from aflutter, carotid u/s negative for sig lesion # Atrial flutter - new onset, now nsr # Chronic renal failure on dialysis. # Peripheral vascular disease status post left BKA, status post right fem-tib bypass, now with right toe gangrene patent graft # Orthostatic hypotension. # Anemia of chronic disease. # Moderate aortic stenosis. # Hyperlipidemiacontrolled. # Type 2 diabetes. # Mild aortic regurgitation on echocardiography. # Benign prostatic hypertrophy # Right toe gangrene >> cont asa 81mg daily, plavix 75mg daily given recent PCI >> on Eliquis 2.5 BID for anticoag for atrial flutter, cva >> metoprolol for heart rate control >> cont statin >> PAD per vascular/wound care Problems: Consultation Date/Type/Reason Admit Date/Time Aug 14, 2016 at 14:49 Initial Consult Date 08/15/16 Type of Consultation: cardiology Referring Provider: CELESTE BHATT MD 24 HR Interval Summary Free Text/Dictation pt sleeping this am. ngt capped. attempting to advance swallow. no cp/sob. remains with hemiparesis, no cp/sob. Exam/Review of Systems Vital Signs Vitals Vital Signs Date Time Temp Pulse Resp B/P Pulse Ox O2 Delivery O2 Flow Rate FiO2 08/27/16 07:26 97.9 104 20 138/61 94 Intake and Output 08/26/16 08/26/16 08/27/16 15:00 23:00 07:00 Intake Total 440 ml Output Total 3400 ml Balance -2960 ml Exam Constitutional: sleeping Head: normocephalic Eyes: nl conjunctiva ENMT: nl external ears & nose, Neck: supple Respiratory: clear to auscultation Cardiovascular: regular rate and rhythm, distal RE with dressing, 4th toe ulceration + Gastrointestinal: soft Musculoskeletal: nl extremities to inspection Results Result Diagram: 08/27/16 0742 08/26/16 0520 Results 24 hrs Laboratory Tests Test 08/26/16 17:28 08/26/16 21:10 08/27/16 07:40 08/27/16 07:42 Bedside Glucose 131 163 Erythrocyte Sedimentation Rate 25 H White Blood Count 10.4 Red Blood Count 4.19 L Hemoglobin 12.1 L Hematocrit 38.7 L Mean Corpuscular Volume 92.4 Mean Corpuscular Hemoglobin 28.9 L Mean Corpuscular Hemoglobin Concent 31.3 L Red Cell Distribution Width 16.4 H Platelet Count 203 Mean Platelet Volume 10.8 H Neutrophils % 76.1 Lymphocytes % 14.9 L Monocytes % 6.8 Eosinophils % 1.3 Basophils % 0.4 Nucleated Red Blood Cells % 0.0 Neutrophils # 7.9 H Lymphocytes # 1.6 Monocytes # 0.7 Eosinophils # 0.1 Basophils # 0.0 Nucleated Red Blood Cells # 0.0 C-Reactive Protein 3.3 H Test 08/27/16 08:09 08/27/16 08:33 08/27/16 08:50 08/27/16 09:22 Bedside Glucose 59 L 71 76 103 Test 08/27/16 12:16 Bedside Glucose 179 Medications Medications Current Medications Acetaminophen/ Hydrocodone Bitart ([place] (5/325)) 1 tab Q6H PRN PO MODERATE PAIN LEVEL 4-6; Start 08/14/16 at 14:30 Zolpidem Tartrate (Ambien) 5 mg QHS PRN PO SLEEP; Start 08/14/16 at 14:30 Acetaminophen (Tylenol Tab) 650 mg Q4 PRN PO PAIN AND OR ELEVATED TEMP; Start 08/14/16 at 14:30 Ascorbic Acid (Vitamin C) 500 mg DAILY PO Last administered on 08/27/16 08:36 ; Admin Dose 500 MG; Start 08/15/16 at 09:00 Aspirin (Aspirin) 81 mg DAILY PO Last administered on 08/27/16 08:36; Admin Dose 81 MG; Start 08/15/16 at 09:00 Bisacodyl (Dulcolax Supp) [address] BM; Start 08/14/16 at 14:30 Calcitriol (Rocaltrol) 0.25 mcg DAILY PO Last administered on 08/27/16 08:36; Admin Dose 0.25 MCG; Start 08/15/16 at 09:00 Loratadine (Claritin) 10 mg DAILY PO Last administered on 08/27/16 08:36; Admin Dose 10 MG; Start 08/15/16 at 09:00 Multivit/Ca Carb/ B Cmplx/FA/Prenat (Sarika-Nahomi) 1 tab DAILY PO Last administered on 08/27/16 08:36; Admin Dose 1 TAB; Start 08/15/16 at 09:00 Saccharomyces Boulardii (Florastor) 500 mg BID PO Last administered on 08:37; Admin Dose 500 MG; Start 08/14/16 at 21:00 Tamsulosin HCl (Flomax) 0.4 mg HS PO Last administered on 08/26/16 21:09; Admin Dose 0.4 MG; Start 08/14/16 at 21:00 Miscellaneous Information 1 ea NOTE XX ; Start 08/14/16 at 15:30 Glucose (Glutose) 15 gm Q15M PRN PO DECREASED GLUCOSE; Start 08/14/16 at 15:30 Glucose (Glutose) 22.5 gm Q15M PRN PO DECREASED GLUCOSE; Start 08/14/16 at 15:30 Dextrose (D50w Syringe) 25 ml Q15M PRN IV DECREASED GLUCOSE; Start 08/14/16 at 15:30 Dextrose (D50w Syringe) 50 ml Q15M PRN IV DECREASED GLUCOSE Last administered on 08/17/16 21:14; Admin Dose 50 ML; Start 08/14/16 at 15:30 Glucagon (Glucagen) 1 mg Q15M PRN IM DECREASED GLUCOSE; Start 08/14/16 at 15:30 Glucose (Glutose) 15 gm Q15M PRN BUCCAL DECREASED GLUCOSE; Start 08/14/16 at 15: 30 Diagnostic Test (Pha) (Accu-Chek) 1 ea 02 XX Last administered on 08/26/16 02: 00; Admin Dose 1 EA; Start 08/16/16 at 02:00 Ondansetron HCl (Zofran Inj) 4 mg Q4H PRN IV NAUSEA AND/OR VOMITING Last administered on 08/22/16 09:34; Admin Dose 4 MG; Start 08/16/16 at 09:30 Ondansetron HCl (Zofran Odt) 4 mg Q6H PRN ODT NAUSEA; Start 08/16/16 at 09:30 Lactobacillus Acidophilus (Florajen3 Capsule) 1 each BID PO Last administered on 08/27/16 08:37; Admin Dose 1 EACH; Start 08/17/16 at 09:00 Atorvastatin Calcium (Lipitor) 10 mg QHS PO Last administered on 08/26/16 21: 08; Admin Dose 10 MG; Start 08/17/16 at 21:00 Clopidogrel Bisulfate (plaVIX) 75 mg DAILY PO Last administered on 08/27/16 08 :36; Admin Dose 75 MG; Start 08/18/16 at 09:00 Insulin Glargine (Lantus) 14 unit QHS SC Last administered on 08/26/16 21:21; Admin Dose 14 UNIT; Start 08/18/16 at 21:00 Metoprolol Tartrate (Lopressor) 37.5 mg BID PO Last administered on 08/27/16 08:37; Admin Dose 37.5 MG; Start 08/20/16 at 10:00 Morphine Sulfate (morphine) 1 mg Q2H PRN IV PAIN; Start 08/21/16 at 19:00 Apixaban (Eliquis) 2.5 mg BID PO Last administered on 08/27/16 08:36; Admin Dose 2.5 MG; Start 08/23/16 at 11:30 Ciprofloxacin (Cipro) 500 mg DAILY@06 NGT Last administered on 08/27/16 05:15 ; Admin Dose 500 MG; Start 08/27/16 at 06:00 Doxycycline Hyclate 100 mg 100 mg BID NGT Last administered on 08/27/16 08:36 ; Admin Dose 100 MG; Start 08/26/16 at 09:00 Dextrose/Sodium Chloride (D5-1/2ns) 1,000 ml @ 60 mls/hr [id number] IV Last administered on 08/27/16 10:06; Admin Dose 60 MLS/HR; Start 08/27/16 at 10:[address] angiogram report reviewed: patent graft RSFA to DP AMY PEREZ Aug 27, 2016 16:31
[2016-08-27] MEDS: INSULIN GLARGINE [LANtus] 3 ML PEN SC SCH (20:32)
[2016-08-27 20:34] VITALS: BP 142/63; RESP 19
[2016-08-27] MEDS: ATORVASTATIN 10 MG TAB PO SCH (21:33)
[2016-08-27] MEDS: TAMSULOSIN (SR) 0.4 MG CAP PO SCH (21:34)
[2016-08-28] VITALS (9 sets, daily range): BP systolic 124–149; BP diastolic 62–77; PULSE 65–76; RESP 16–18
[2016-08-28] MEDS: ACCU-CHEK XX SCH (01:04)
[2016-08-28] MEDS: morphine 2 MG INJ IV PRN ×2 (01:25→07:01)
[2016-08-28] MEDS: DEXTROSE 5%-0.45% NACL 1,000 ML IV SCH ×3 (01:26→19:58)
[2016-08-28] MEDS: CIPROFLOXACIN 500 MG TAB NGT SCH (05:33)
[2016-08-28 06:14] LABS: ADD SCAN DIFF NO
[2016-08-28 06:19] LABS: BASOPHILS % 0.3 % (0.0-2.0); EOSINOPHILS # 0.2 10^3/ul (0.0-0.5); EOSINOPHILS % 2.4 % (0.0-7.0); HEMOGLOBIN 11.4 g/dl (14.0-18.0); LYMPHOCYTES # 1.6 10^3/ul (0.8-2.9); LYMPHOCYTES % 18.4 % (15.0-51.0); MEAN CORPUSCULAR HEMOGLOBIN 29.2 pg (29.0-33.0); MEAN CORPUSCULAR HGB CONC 31.7 g/dl (32.0-37.0); MEAN CORPUSCULAR VOLUME 92.3 fl (82.0-101.0); MONOCYTE # 0.7 10^3/ul (0.3-0.9); MONOCYTES % 7.5 % (0.0-11.0); NEUTROPHIL # 6.2 10^3/ul (1.6-7.5); NEUTROPHILS % 70.9 % (39.0-77.0); PLATELET COUNT 202 10^3/UL (140-415); RED CELL DISTRIBUTION WIDTH 16.4 % (11.5-14.5); WHITE BLOOD COUNT 8.7 10^3/ul (4.8-10.8)
--- NOTE | 2016-08-28 06:35 | CONS ---
Date/Time of Note Date/Time of Note DATE: 08/28/16 TIME: 06:32 Assessment/Plan Assessment/Plan Chief Complaint/Hosp Course 1) R 4th toe gangrene and RLE cellulitis awaits angiography and amputation can likely switch to po antibiotics post amputation continue with vanco/zosyn at present 08/18 - stable on vanco/zosyn, s/p cardiac stenting pt awaits cardiac clearance prior to proceeding with definitive surgery to RLE 08/19 - pt to set surgery on wednesday continue with vanco/zosyn will likely switch to oral antibiotics soon after surgery for a short period of time 08/21 - no surgery due to new CVA with slurred speech and asymmetry of mouth/face continue with vanco/zosyn 08/24 - continue vanco/zosyn 08/26 - cellulitis has resolved will change to po cipro/doxy for maintenance till definitive surgery can be done or for a month, whichever comes first 08/28 - no surgery planned, continue cipro/doxy thru 09/25/16 I will sign off on case 2) CoNS in blood only one in four bottles, likely this represents contamination and no need for treatment 3) ESRD to get HD today 4)DM 5) diarrhea stools studies have been negative change probiotic to include multiple types of bacteria 6) CVA 08/22 - just prior to surgery pt was noted to have slurred speech and L facial dropping CT head confirms new R acute infarct 08/24 - strength is improved, speech is still slurred though, more awake 08/26 - less slurred speech, pt to get another swallow eval today 08/28 - doing better, he eats but not much Problems: Consultation Date/Type/Reason Admit Date/Time Aug 14, 2016 at 14:49 Initial Consult Date 08/15/16 Type of Consultation: ID Referring Provider: CELESTE BHATT MD 24 HR Interval Summary Free Text/Dictation pt's speech is much improved no V, N pt has mushy stools, no abd pain Had pain to R foot last night, none now poor appetitie Exam/Review of Systems Vital Signs Vitals Vital Signs Date Time Temp Pulse Resp B/P Pulse Ox O2 Delivery O2 Flow Rate FiO2 08/27/16 20:34 97.6 68 19 142/63 93 Intake and Output 608/27/16 08/28/16 15:00 23:00 07:00 Intake Total 780 ml 670 ml Balance 780 ml 670 ml Exam Constitutional: alert Head: normocephalic Respiratory: clear to auscultation Cardiovascular: regular rate and rhythm Gastrointestinal: non-tender, soft Extremities: other (R foot is bandaged, no redness to lower calf/ankle) Results Result Diagram: 08/27/16 0742 08/26/16 0520 Results 24 hrs Laboratory Tests Test 08/27/16 07:40 08/27/16 07:42 08/27/16 08:09 08/27/16 08:33 Erythrocyte Sedimentation Rate 25 H White Blood Count 10.4 Red Blood Count 4.19 L Hemoglobin 12.1 L Hematocrit 38.7 L Mean Corpuscular Volume 92.4 Mean Corpuscular Hemoglobin 28.9 L Mean Corpuscular Hemoglobin Concent 31.3 L Red Cell Distribution Width 16.4 H Platelet Count 203 Mean Platelet Volume 10.8 H Neutrophils % 76.1 Lymphocytes % 14.9 L Monocytes % 6.8 Eosinophils % 1.3 Basophils % 0.4 Nucleated Red Blood Cells % 0.0 Neutrophils # 7.9 H Lymphocytes # 1.6 Monocytes # 0.7 Eosinophils # 0.1 Basophils # 0.0 Nucleated Red Blood Cells # 0.0 C-Reactive Protein 3.3 H Bedside Glucose 59 L 71 Test 08/27/16 08:50 08/27/16 09:22 08/27/16 12:16 08/27/16 17:15 Bedside Glucose 76 103 179 128 Test 08/27/16 20:29 Bedside Glucose 144 Medications Medications Current Medications Acetaminophen/ Hydrocodone Bitart ([place] (5/325)) 1 tab Q6H PRN PO MODERATE PAIN LEVEL 4-6; Start 08/14/16 at 14:30 Zolpidem Tartrate (Ambien) 5 mg QHS PRN PO SLEEP; Start 08/14/16 at 14:30 Acetaminophen (Tylenol Tab) 650 mg Q4 PRN PO PAIN AND OR ELEVATED TEMP; Start 08/14/16 at 14:30 Ascorbic Acid (Vitamin C) 500 mg DAILY PO Last administered on 08/27/16 08:36 ; Admin Dose 500 MG; Start 08/15/16 at 09:00 Aspirin (Aspirin) 81 mg DAILY PO Last administered on 08/27/16 08:36; Admin Dose 81 MG; Start 08/15/16 at 09:00 Bisacodyl (Dulcolax Supp) 10 mg DAILY PRN [place] BM; Start 08/14/16 at 14:30 Calcitriol (Rocaltrol) 0.25 mcg DAILY PO Last administered on 08/27/16 08:36; Admin Dose 0.25 MCG; Start 08/15/16 at 09:00 Loratadine (Claritin) 10 mg DAILY PO Last administered on 08/27/16 08:36; Admin Dose 10 MG; Start 08/15/16 at 09:00 Multivit/Ca Carb/ B Cmplx/FA/Prenat (Sarika-Nahomi) 1 tab DAILY PO Last administered on 08/27/16 08:36; Admin Dose 1 TAB; Start 08/15/16 at 09:00 Saccharomyces Boulardii (Florastor) 500 mg BID PO Last administered on 21:33; Admin Dose 500 MG; Start 08/14/16 at 21:00 Tamsulosin HCl (Flomax) 0.4 mg HS PO Last administered on 08/27/16 21:34; Admin Dose 0.4 MG; Start 08/14/16 at 21:00 Miscellaneous Information 1 ea NOTE XX ; Start 08/14/16 at 15:30 Glucose (Glutose) 15 gm Q15M PRN PO DECREASED GLUCOSE; Start 08/14/16 at 15:30 Glucose (Glutose) 22.5 gm Q15M PRN PO DECREASED GLUCOSE; Start 08/14/16 at 15:30 Dextrose (D50w Syringe) 25 ml Q15M PRN IV DECREASED GLUCOSE; Start 08/14/16 at 15:30 Dextrose (D50w Syringe) 50 ml Q15M PRN IV DECREASED GLUCOSE Last administered on 08/17/16 21:14; Admin Dose 50 ML; Start 08/14/16 at 15:30 Glucagon (Glucagen) 1 mg Q15M PRN IM DECREASED GLUCOSE; Start 08/14/16 at 15:30 Glucose (Glutose) 15 gm Q15M PRN BUCCAL DECREASED GLUCOSE; Start 08/14/16 at 15: 30 Diagnostic Test (Pha) (Accu-Chek) 1 ea 02 XX Last administered on 08/26/16 02: 00; Admin Dose 1 EA; Start 08/16/16 at 02:00 Ondansetron HCl (Zofran Inj) 4 mg Q4H PRN IV NAUSEA AND/OR VOMITING Last administered on 08/22/16 09:34; Admin Dose 4 MG; Start 08/16/16 at 09:30 Ondansetron HCl (Zofran Odt) 4 mg Q6H PRN ODT NAUSEA; Start 08/16/16 at 09:30 Lactobacillus Acidophilus (Florajen3 Capsule) 1 each BID PO Last administered on 08/27/16 21:33; Admin Dose 1 EACH; Start 08/17/16 at 09:00 Atorvastatin Calcium (Lipitor) 10 mg QHS PO Last administered on 08/27/16 21: 33; Admin Dose 10 MG; Start 08/17/16 at 21:00 Clopidogrel Bisulfate (plaVIX) 75 mg DAILY PO Last administered on 08/27/16 08 :36; Admin Dose 75 MG; Start 08/18/16 at 09:00 Insulin Glargine (Lantus) 14 unit QHS SC Last administered on 08/27/16 20:32; Admin Dose 14 UNIT; Start 08/18/16 at 21:00 Metoprolol Tartrate (Lopressor) 37.5 mg BID PO Last administered on 08/27/16 21:34; Admin Dose 37.5 MG; Start 08/20/16 at 10:00 Morphine Sulfate (morphine) 1 mg Q2H PRN IV PAIN Last administered on 01:25; Admin Dose 1 MG; Start 08/21/16 at 19:00 Apixaban (Eliquis) 2.5 mg BID PO Last administered on 08/27/16 21:34; Admin Dose 2.5 MG; Start 08/23/16 at 11:30 Ciprofloxacin (Cipro) 500 mg DAILY@06 NGT Last administered on 08/28/16 05:33 ; Admin Dose 500 MG; Start 08/27/16 at 06:00 Doxycycline Hyclate 100 mg 100 mg BID NGT Last administered on 08/27/16 21:34 ; Admin Dose 100 MG; Start 08/26/16 at 09:00 Dextrose/Sodium Chloride (D5-1/2ns) 1,000 ml @ 60 mls/hr [id number] IV Last administered on 08/28/16 01:26; Admin Dose 60 MLS/HR; Start 08/27/16 at 10:00 PEDRO PATRICK MD Aug 28, 2016 06:35
[2016-08-28] MEDS: INSULIN ASPART [NOVOLOG] 3 ML PEN SC SCH ×4 (08:15→21:00)
[2016-08-28] MEDS: ASCORBIC ACID 500 MG TAB PO SCH (08:26)
[2016-08-28] MEDS: DOXYCYCLINE 100 MG TAB NGT SCH ×2 (08:26→21:02)
[2016-08-28] MEDS: CALCITRIOL 0.25 MCG CAP PO SCH (08:27)
[2016-08-28] MEDS: L ACIDOPHIL/B LACTIS/B LONGUM CAPSULE PO SCH ×2 (08:27→21:02)
[2016-08-28] MEDS: SACCHAROMYCES BOULARDII 250 MG CAP PO SCH ×2 (08:28→21:02)
[2016-08-28] MEDS: ASPIRIN 81 MG TAB PO SCH (08:28)
[2016-08-28] MEDS: METOPROLOL 25 MG TAB PO SCH ×2 (08:28→21:07)
[2016-08-28] MEDS: CREON (24K-76K-120K) 1 CAP PO SCH ×3 (08:28→17:08)
[2016-08-28] MEDS: LORATADINE 10 MG TAB PO SCH (08:28)
[2016-08-28] MEDS: CALCIUM ACETATE 667 MG CAP PO SCH ×3 (08:28→17:08)
[2016-08-28] MEDS: MULTIVIT/CA CARB/B CMPLX/FA TAB PO SCH (08:28)
[2016-08-28] MEDS: APIXABAN 5 MG TABLET PO SCH ×2 (08:28→21:02)
[2016-08-28] MEDS: CLOPIDOGREL 75 MG TAB PO SCH (08:29)
--- NOTE | 2016-08-28 08:34 | PN ---
Date/Time of Note Date/Time of Note DATE: 08/28/16 TIME: 08:28 Assessment/Plan VTE Prophylaxis VTE Prophylaxis Intervention: other Lines/Catheters IV Catheter Type (from [facility]): [place] [facility] Urinary Cath still in place: No Assessment/Plan Chief Complaint/Hosp Course 1. ESRD on maintenance hemodialysis [facility] . hemodialysis is ordered for today. 2. CAD he has had NSTEMI , he had a coronary angiogram and had 2 stents placed in the LAD. He is now on aspirin and Plavix. 3. IDDM , his blood sugars have been low. I will decrease his dose of Lantus insulin. 4. PAD , gangrene of R foot 4th toe . He was scheduled for surgery however he had a CVA and surgery was canceled . 5. cellulitis of R lower leg , improving on antibiotics. 6. postural hypotension . 7. Atrial fib/flutter, he is now on Eliquis . 8. Depression , he seems better . We talked about stopping dialysis . He wants to continue dialysis for now . 9. 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 10. dysphagia , with NG tube and to be re-evaluated by speech therapy . He is able to swallow . The NG tube is out and he is eating and swallowing on his own.. I will replace if needed . Patient is considering a PEG placement if needed . Problems: Subjective 24 Hr Interval Summary Free Text/Dictation He is now one week post a right CVA with left hemiparesis. He is awake this morning. He says that he was able to eat and swallow yesterday. His daughter is looking for a longterm facility out near where he lives as a potential transfer point. He has hemodialysis scheduled for today. Constitutional: no complaints Cardiovascular: no complaints Gastrointestinal: no complaints Genitourinary: no complaints Musculoskeletal: no complaints Neurologic: focal-weakness Psychological: depression Exam/Review of Systems Vital Signs Vitals Vital Signs Date Time Temp Pulse Resp B/P Pulse Ox O2 Delivery O2 Flow Rate FiO2 08/28/16 07:21 97.8 64 18 135/62 95 Intake and Output 08/27/16 08/27/16 08/28/16 15:00 23:00 07:00 Intake Total 780 ml 670 ml Balance 780 ml 670 ml Exam Constitutional: alert, frail Psych: depression Respiratory: clear to auscultation, normal air movement Cardiovascular: nl pulses, regular rate and rhythm Gastrointestinal: nl liver, spleen, non-tender, soft Musculoskeletal: other Results Result Diagram: 08/28/16 0510 08/26/16 0520 Results 24 hrs Laboratory Tests Test 08/27/16 08:33 08/27/16 08:50 08/27/16 09:22 08/27/16 12:16 Bedside Glucose 71 76 103 179 Test 08/27/16 17:15 08/27/16 20:29 08/28/16 05:10 08/28/16 08:22 Bedside Glucose 128 144 132 White Blood Count 8.7 Red Blood Count 3.90 L Hemoglobin 11.4 L Hematocrit 36.0 L Mean Corpuscular Volume 92.3 Mean Corpuscular Hemoglobin 29.2 Mean Corpuscular Hemoglobin Concent 31.7 L Red Cell Distribution Width 16.4 H Platelet Count 202 Mean Platelet Volume 11.0 H Neutrophils % 70.9 Lymphocytes % 18.4 Monocytes % 7.5 Eosinophils % 2.4 Basophils % 0.3 Nucleated Red Blood Cells % 0.0 Neutrophils # 6.2 Lymphocytes # 1.6 Monocytes # 0.7 Eosinophils # 0.2 Basophils # 0.0 Nucleated Red Blood Cells # 0.0 Medications Medications Current Medications Acetaminophen/ Hydrocodone Bitart ([place] (5/325)) 1 tab Q6H PRN PO MODERATE PAIN LEVEL 4-6; Start 08/14/16 at 14:30 Zolpidem Tartrate (Ambien) 5 mg QHS PRN PO SLEEP; Start 08/14/16 at 14:30 Acetaminophen (Tylenol Tab) 650 mg Q4 PRN PO PAIN AND OR ELEVATED TEMP; Start 08/14/16 at 14:30 Ascorbic Acid (Vitamin C) 500 mg DAILY PO Last administered on 08/27/16 08:36 ; Admin Dose 500 MG; Start 08/15/16 at 09:00 Aspirin (Aspirin) 81 mg DAILY PO Last administered on 08/27/16 08:36; Admin Dose 81 MG; Start 08/15/16 at 09:00 Bisacodyl (Dulcolax Supp) [address] BM; Start 08/14/16 at 14:30 Calcitriol (Rocaltrol) 0.25 mcg DAILY PO Last administered on 08/27/16 08:36; Admin Dose 0.25 MCG; Start 08/15/16 at 09:00 Loratadine (Claritin) 10 mg DAILY PO Last administered on 08/27/16 08:36; Admin Dose 10 MG; Start 08/15/16 at 09:00 Multivit/Ca Carb/ B Cmplx/FA/Prenat (Sarika-Nahomi) 1 tab DAILY PO Last administered on 08/27/16 08:36; Admin Dose 1 TAB; Start 08/15/16 at 09:00 Saccharomyces Boulardii (Florastor) 500 mg BID PO Last administered on 21:33; Admin Dose 500 MG; Start 08/14/16 at 21:00 Tamsulosin HCl (Flomax) 0.4 mg HS PO Last administered on 08/27/16 21:34; Admin Dose 0.4 MG; Start 08/14/16 at 21:00 Miscellaneous Information 1 ea NOTE XX ; Start 08/14/16 at 15:30 Glucose (Glutose) 15 gm Q15M PRN PO DECREASED GLUCOSE; Start 08/14/16 at 15:30 Glucose (Glutose) 22.5 gm Q15M PRN PO DECREASED GLUCOSE; Start 08/14/16 at 15:30 Dextrose (D50w Syringe) 25 ml Q15M PRN IV DECREASED GLUCOSE; Start 08/14/16 at 15:30 Dextrose (D50w Syringe) 50 ml Q15M PRN IV DECREASED GLUCOSE Last administered on 08/17/16 21:14; Admin Dose 50 ML; Start 08/14/16 at 15:30 Glucagon (Glucagen) 1 mg Q15M PRN IM DECREASED GLUCOSE; Start 08/14/16 at 15:30 Glucose (Glutose) 15 gm Q15M PRN BUCCAL DECREASED GLUCOSE; Start 08/14/16 at 15: 30 Diagnostic Test (Pha) (Accu-Chek) 1 ea 02 XX Last administered on 08/26/16 02: 00; Admin Dose 1 EA; Start 08/16/16 at 02:00 Ondansetron HCl (Zofran Inj) 4 mg Q4H PRN IV NAUSEA AND/OR VOMITING Last administered on 08/22/16 09:34; Admin Dose 4 MG; Start 08/16/16 at 09:30 Ondansetron HCl (Zofran Odt) 4 mg Q6H PRN ODT NAUSEA; Start 08/16/16 at 09:30 Lactobacillus Acidophilus (Florajen3 Capsule) 1 each BID PO Last administered on 08/27/16 21:33; Admin Dose 1 EACH; Start 08/17/16 at 09:00 Atorvastatin Calcium (Lipitor) 10 mg QHS PO Last administered on 08/27/16 21: 33; Admin Dose 10 MG; Start 08/17/16 at 21:00 Clopidogrel Bisulfate (plaVIX) 75 mg DAILY PO Last administered on 08/27/16 08 :36; Admin Dose 75 MG; Start 08/18/16 at 09:00 Insulin Glargine (Lantus) 14 unit QHS SC Last administered on 08/27/16 20:32; Admin Dose 14 UNIT; Start 08/18/16 at 21:00 Metoprolol Tartrate (Lopressor) 37.5 mg BID PO Last administered on 08/27/16 21:34; Admin Dose 37.5 MG; Start 08/20/16 at 10:00 Morphine Sulfate (morphine) 1 mg Q2H PRN IV PAIN Last administered on 07:01; Admin Dose 1 MG; Start 08/21/16 at 19:00 Apixaban (Eliquis) 2.5 mg BID PO Last administered on 08/27/16 21:34; Admin Dose 2.5 MG; Start 08/23/16 at 11:30 Ciprofloxacin (Cipro) 500 mg DAILY@06 NGT Last administered on 08/28/16 05:33 ; Admin Dose 500 MG; Start 08/27/16 at 06:00 Doxycycline Hyclate 100 mg 100 mg BID NGT Last administered on 08/27/16 21:34 ; Admin Dose 100 MG; Start 08/26/16 at 09:00 Dextrose/Sodium Chloride (D5-1/2ns) 1,000 ml @ 60 mls/hr [id number] IV Last administered on 08/28/16 01:26; Admin Dose 60 MLS/HR; Start 08/27/16 at 10:00 CELESTE BHATT MD Aug 28, 2016 08:34
[2016-08-28] MEDS: HYDROCODONE/APAP (5/325) TAB PO PRN (17:08)
[2016-08-28] MEDS: ATORVASTATIN 10 MG TAB PO SCH (21:02)
[2016-08-28] MEDS: TAMSULOSIN (SR) 0.4 MG CAP PO SCH (21:02)
[2016-08-28] MEDS: INSULIN GLARGINE [LANtus] 3 ML PEN SC SCH (21:26)
[2016-08-29] MEDS: HYDROCODONE/APAP (5/325) TAB PO PRN (01:19)
[2016-08-29] MEDS: DEXTROSE 10% 1,000 ML IV SCH ×2 (01:30→01:33)
[2016-08-29] MEDS: ACCU-CHEK XX SCH (02:00)
[2016-08-29] MEDS: CIPROFLOXACIN 500 MG TAB NGT SCH (05:54)
--- NOTE | 2016-08-29 07:20 | CONS ---
Date/Time of Note Date/Time of Note DATE: 08/29/16 TIME: 07:15 Assessment/Plan Assessment/Plan Additional Assessment/Plan 70 yo male with multiple medical problems including DM, ESRD, CAD, CVA, PAD with right 4th digit dry and stable gangrene/heel ulcer with no urgent need for any surgical intervention. Agree with continuing with PO antibiotics. Patient to continue with daily Betadine dressing changes of the wounds. Will discuss with Medical team in regards to discharge plans. Consultation Date/Type/Reason Admit Date/Time Aug 14, 2016 at 14:49 Initial Consult Date 08/15/16 Type of Consultation: ID Referring Provider: CELESTE BHATT MD 24 HR Interval Summary Free Text/Dictation Patient seen at bedside. In no acute distress. He is able to swallow and is now on PO antibiotics. No other acute issues. Exam/Review of Systems Vital Signs Vitals Vital Signs Date Time Temp Pulse Resp B/P Pulse Ox O2 Delivery O2 Flow Rate FiO2 08/28/16 20:00 97.5 86 16 149/69 97 Intake and Output 08/28/16 08/28/16 08/29/16 15:00 23:00 07:00 Intake Total 1130 ml 540 ml Output Total 3400 ml Balance -2270 ml 540 ml Exam Right 4th digit stable dry gangrene. Right heel ulcer with dry scab. No drainage of any wounds with no cellulitis noted. Results Result Diagram: 08/28/16 0510 08/29/16 0050 Results 24 hrs Laboratory Tests Test 08/28/16 08:22 08/28/16 12:19 08/28/16 17:04 08/28/16 21:12 Bedside Glucose 132 148 131 135 Test 08/28/16 23:40 08/29/16 00:04 08/29/16 00:18 08/29/16 00:50 Bedside Glucose 59 L 108 81 Glucose Level 162 Test 08/29/16 04:06 Bedside Glucose 105 Medications Medications Current Medications Acetaminophen/ Hydrocodone Bitart ([place] (5/325)) 1 tab Q6H PRN PO MODERATE PAIN LEVEL 4-6 Last administered on 08/29/16t 01:19; Admin Dose 1 TAB; Start 08/14/16 at 14:30 Zolpidem Tartrate (Ambien) 5 mg QHS PRN PO SLEEP; Start 08/14/16 at 14:30 Acetaminophen (Tylenol Tab) 650 mg Q4 PRN PO PAIN AND OR ELEVATED TEMP; Start 08/14/16 at 14:30 Ascorbic Acid (Vitamin C) 500 mg DAILY PO Last administered on 08/28/16 08:26 ; Admin Dose 500 MG; Start 08/15/16 at 09:00 Aspirin (Aspirin) 81 mg DAILY PO Last administered on 08/28/16 08:28; Admin Dose 81 MG; Start 08/15/16 at 09:00 Bisacodyl (Dulcolax Supp) 10 mg DAILY PRN [place] BM; Start 08/14/16 at 14:30 Calcitriol (Rocaltrol) 0.25 mcg DAILY PO Last administered on 08/28/16 08:27; Admin Dose 0.25 MCG; Start 08/15/16 at 09:00 Loratadine (Claritin) 10 mg DAILY PO Last administered on 08/28/16 08:28; Admin Dose 10 MG; Start 08/15/16 at 09:00 Multivit/Ca Carb/ B Cmplx/FA/Prenat (Sarika-Nahomi) 1 tab DAILY PO Last administered on 08/28/16 08:28; Admin Dose 1 TAB; Start 08/15/16 at 09:00 Saccharomyces Boulardii (Florastor) 500 mg BID PO Last administered on 21:02; Admin Dose 500 MG; Start 08/14/16 at 21:00 Tamsulosin HCl (Flomax) 0.4 mg HS PO Last administered on 08/28/16 21:02; Admin Dose 0.4 MG; Start 08/14/16 at 21:00 Miscellaneous Information 1 ea NOTE XX ; Start 08/14/16 at 15:30 Glucose (Glutose) 15 gm Q15M PRN PO DECREASED GLUCOSE; Start 08/14/16 at 15:30 Glucose (Glutose) 22.5 gm Q15M PRN PO DECREASED GLUCOSE; Start 08/14/16 at 15:30 Dextrose (D50w Syringe) 25 ml Q15M PRN IV DECREASED GLUCOSE Last administered on 08/28/16 23:45; Admin Dose 25 ML; Start 08/14/16 at 15:30 Dextrose (D50w Syringe) 50 ml Q15M PRN IV DECREASED GLUCOSE Last administered on 08/17/16 21:14; Admin Dose 50 ML; Start 08/14/16 at 15:30 Glucagon (Glucagen) 1 mg Q15M PRN IM DECREASED GLUCOSE; Start 08/14/16 at 15:30 Glucose (Glutose) 15 gm Q15M PRN BUCCAL DECREASED GLUCOSE; Start 08/14/16 at 15: 30 Diagnostic Test (Pha) (Accu-Chek) 1 ea 02 XX Last administered on 08/26/16 02: 00; Admin Dose 1 EA; Start 08/16/16 at 02:00 Ondansetron HCl (Zofran Inj) 4 mg Q4H PRN IV NAUSEA AND/OR VOMITING Last administered on 08/22/16 09:34; Admin Dose 4 MG; Start 08/16/16 at 09:30 Ondansetron HCl (Zofran Odt) 4 mg Q6H PRN ODT NAUSEA; Start 08/16/16 at 09:30 Lactobacillus Acidophilus (Florajen3 Capsule) 1 each BID PO Last administered on 08/28/16 21:02; Admin Dose 1 EACH; Start 08/17/16 at 09:00 Atorvastatin Calcium (Lipitor) 10 mg QHS PO Last administered on 08/28/16 21: 02; Admin Dose 10 MG; Start 08/17/16 at 21:00 Clopidogrel Bisulfate (plaVIX) 75 mg DAILY PO Last administered on 08/28/16 08 :29; Admin Dose 75 MG; Start 08/18/16 at 09:00 Metoprolol Tartrate (Lopressor) 37.5 mg BID PO Last administered on 08/28/16 21:07; Admin Dose 37.5 MG; Start 08/20/16 at 10:00 Morphine Sulfate (morphine) 1 mg Q2H PRN IV PAIN Last administered on 07:01; Admin Dose 1 MG; Start 08/21/16 at 19:00 Apixaban (Eliquis) 2.5 mg BID PO Last administered on 08/28/16 21:02; Admin Dose 2.5 MG; Start 08/23/16 at 11:30 Ciprofloxacin (Cipro) 500 mg DAILY@06 NGT Last administered on 08/29/16 05:54 ; Admin Dose 500 MG; Start 08/27/16 at 06:00 Doxycycline Hyclate (Vibramycin) 100 mg BID NGT Last administered on 08/28/16 21:02; Admin Dose 100 MG; Start 08/26/16 at 09:00 Insulin Glargine 10 unit 10 unit QHS SC ; Start 08/29/16 at 21:00 Dextrose (D10w) 1,000 ml @ 40 mls/hr Q24H IV Last administered on 08/29/16 01 :30; Admin Dose 40 MLS/HR; Start 08/29/16 at 01:00 CORIE ROSA DPM Aug 29, 2016 07:20
[2016-08-29 07:22] VITALS: BP 126/58; RESP 18
[2016-08-29] MEDS: INSULIN ASPART [NOVOLOG] 3 ML PEN SC SCH ×4 (08:07→21:00)
[2016-08-29] MEDS: CREON (24K-76K-120K) 1 CAP PO SCH ×3 (08:39→17:33)
[2016-08-29] MEDS: ASPIRIN 81 MG TAB PO SCH (08:39)
[2016-08-29] MEDS: SACCHAROMYCES BOULARDII 250 MG CAP PO SCH ×2 (08:39→20:42)
[2016-08-29] MEDS: MULTIVIT/CA CARB/B CMPLX/FA TAB PO SCH (08:39)
[2016-08-29] MEDS: DOXYCYCLINE 100 MG TAB NGT SCH ×2 (08:39→20:39)
[2016-08-29] MEDS: CALCIUM ACETATE 667 MG CAP PO SCH ×3 (08:40→17:34)
[2016-08-29] MEDS: CALCITRIOL 0.25 MCG CAP PO SCH (08:40)
[2016-08-29] MEDS: L ACIDOPHIL/B LACTIS/B LONGUM CAPSULE PO SCH ×2 (08:40→20:42)
[2016-08-29] MEDS: METOPROLOL 25 MG TAB PO SCH ×2 (08:41→20:46)
[2016-08-29] MEDS: CLOPIDOGREL 75 MG TAB PO SCH (08:42)
[2016-08-29] MEDS: ASCORBIC ACID 500 MG TAB PO SCH (08:42)
[2016-08-29] MEDS: APIXABAN 5 MG TABLET PO SCH ×2 (08:42→20:39)
[2016-08-29] MEDS: LORATADINE 10 MG TAB PO SCH (08:42)
--- NOTE | 2016-08-29 11:44 | PN ---
Date/Time of Note Date/Time of Note DATE: 08/29/16 TIME: 11:40 Assessment/Plan VTE Prophylaxis VTE Prophylaxis Intervention: other Lines/Catheters IV [facility] Type (from [facility] [place] Urinary Cath still in place: No Assessment/Plan Chief Complaint/Hosp Course 1. ESRD on maintenance hemodialysis [facility] . Next hemodialysis in 2 days. 2. CAD he has had NSTEMI , he had a coronary angiogram and had 2 stents placed in the LAD. He is now on aspirin and Plavix. 3. IDDM , his blood sugars have been low. I will decrease his dose of Lantus insulin. 4. PAD , gangrene of R foot 4th toe . Hopefully the amputation can be rescheduled.. 5. cellulitis of R lower leg , improving on antibiotics. 6. postural hypotension . 7. Atrial fib/flutter, he is now on Eliquis . 8. Depression , he seems better . We talked about stopping dialysis . He wants to continue dialysis for now . 9. 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 10. dysphagia , with NG tube and to be re-evaluated by speech therapy . He is able to swallow and says that he is eating more. Hopefully will not have to replace NG or place PEG tube. 11. Discharge planning. His daughter is trying to find an ECF appropriate for him in [place]. Problems: Subjective 24 Hr Interval Summary Free Text/Dictation He is sleeping but arouses easily to verbal stimuli. He is conversant. He says that he has been eating well. Constitutional: no complaints Gastrointestinal: no complaints Genitourinary: no complaints Musculoskeletal: no complaints Neurologic: focal-weakness Exam/Review of Systems Vital Signs Vitals Vital Signs Date Time Temp Pulse Resp B/P Pulse Ox O2 Delivery O2 Flow Rate FiO2 08/29/16 07:22 97.6 63 18 126/58 98 Intake and Output 08/28/16 08/28/16 08/29/16 15:00 23:00 07:00 Intake Total 1130 ml 540 ml Output Total 3400 ml Balance -2270 ml 540 ml Exam Left leg below the knee amputation. Right leg with gangrenous fourth toe. Cellulitis resolving. Constitutional: frail Respiratory: clear to auscultation, normal air movement Cardiovascular: irregular rhythm Gastrointestinal: soft Results Result Diagram: 08/28/16 0510 08/29/16 0050 Results 24 hrs Laboratory Tests Test 08/28/16 12:19 08/28/16 17:04 08/28/16 21:12 08/28/16 23:40 Bedside Glucose 148 131 135 59 L Test 08/29/16 00:04 08/29/16 00:18 08/29/16 00:50 08/29/16 04:06 Bedside Glucose 108 81 105 Glucose Level 162 Test 08/29/16 07:55 Bedside Glucose 118 Medications Medications Current Medications Acetaminophen/ Hydrocodone Bitart ([place] (5/325)) 1 tab Q6H PRN PO MODERATE PAIN LEVEL 4-6 Last administered on 08/29/16 01:19; Admin Dose 1 TAB; Start 08/14/16 at 14:30 Zolpidem Tartrate (Ambien) 5 mg QHS PRN PO SLEEP; Start 08/14/16 at 14:30 Acetaminophen (Tylenol Tab) 650 mg Q4 PRN PO PAIN AND OR ELEVATED TEMP; Start 08/14/16 at 14:30 Ascorbic Acid (Vitamin C) 500 mg DAILY PO Last administered on 08/29/16 08:42 ; Admin Dose 500 MG; Start 08/15/16 at 09:00 Aspirin (Aspirin) 81 mg DAILY PO Last administered on 08/29/16 08:39; Admin Dose 81 MG; Start 08/15/16 at 09:00 Bisacodyl (Dulcolax Supp) 10 mg DAILY PRN [place] BM; Start 08/14/16 at 14:30 Calcitriol (Rocaltrol) 0.25 mcg DAILY PO Last administered on 08/29/16 08:40; Admin Dose 0.25 MCG; Start 08/15/16 at 09:00 Loratadine (Claritin) 10 mg DAILY PO Last administered on 08/29/16 08:42; Admin Dose 10 MG; Start 08/15/16 at 09:00 Multivit/Ca Carb/ B Cmplx/FA/Prenat (Sarika-Nahomi) 1 tab DAILY PO Last administered on 08/29/16 08:39; Admin Dose 1 TAB; Start 08/15/16 at 09:00 Saccharomyces Boulardii (Florastor) 500 mg BID PO Last administered on 08:39; Admin Dose 500 MG; Start 08/14/16 at 21:00 Tamsulosin HCl (Flomax) 0.4 mg HS PO Last administered on 08/28/16 21:02; Admin Dose 0.4 MG; Start 08/14/16 at 21:00 Miscellaneous Information 1 ea NOTE XX ; Start 08/14/16 at 15:30 Glucose (Glutose) 15 gm Q15M PRN PO DECREASED GLUCOSE; Start 08/14/16 at 15:30 Glucose (Glutose) 22.5 gm Q15M PRN PO DECREASED GLUCOSE; Start 08/14/16 at 15:30 Dextrose (D50w Syringe) 25 ml Q15M PRN IV DECREASED GLUCOSE Last administered on 08/28/16 23:45; Admin Dose 25 ML; Start 08/14/16 at 15:30 Dextrose (D50w Syringe) 50 ml Q15M PRN IV DECREASED GLUCOSE Last administered on 08/17/16 21:14; Admin Dose 50 ML; Start 08/14/16 at 15:30 Glucagon (Glucagen) 1 mg Q15M PRN IM DECREASED GLUCOSE; Start 08/14/16 at 15:30 Glucose (Glutose) 15 gm Q15M PRN BUCCAL DECREASED GLUCOSE; Start 08/14/16 at 15: 30 Diagnostic Test (Pha) (Accu-Chek) 1 ea 02 XX Last administered on 08/26/16 02: 00; Admin Dose 1 EA; Start 08/16/16 at 02:00 Ondansetron HCl (Zofran Inj) 4 mg Q4H PRN IV NAUSEA AND/OR VOMITING Last administered on 08/22/16 09:34; Admin Dose 4 MG; Start 08/16/16 at 09:30 Ondansetron HCl (Zofran Odt) 4 mg Q6H PRN ODT NAUSEA; Start 08/16/16 at 09:30 Lactobacillus Acidophilus (Florajen3 Capsule) 1 each BID PO Last administered on 08/29/16 08:40; Admin Dose 1 EACH; Start 08/17/16 at 09:00 Atorvastatin Calcium (Lipitor) 10 mg QHS PO Last administered on 08/28/16 21: 02; Admin Dose 10 MG; Start 08/17/16 at 21:00 Clopidogrel Bisulfate (plaVIX) 75 mg DAILY PO Last administered on 08/29/16 08 :42; Admin Dose 75 MG; Start 08/18/16 at 09:00 Metoprolol Tartrate (Lopressor) 37.5 mg BID PO Last administered on 08/29/16 08:41; Admin Dose 37.5 MG; Start 08/20/16 at 10:00 Morphine Sulfate (morphine) 1 mg Q2H PRN IV PAIN Last administered on 07:01; Admin Dose 1 MG; Start 08/21/16 at 19:00 Apixaban (Eliquis) 2.5 mg BID PO Last administered on 08/29/16 08:42; Admin Dose 2.5 MG; Start 08/23/16 at 11:30 Ciprofloxacin (Cipro) 500 mg DAILY@06 NGT Last administered on 08/29/16 05:54 ; Admin Dose 500 MG; Start 08/27/16 at 06:00 Doxycycline Hyclate (Vibramycin) 100 mg BID NGT Last administered on 08/29/16 08:39; Admin Dose 100 MG; Start 08/26/16 at 09:00 Insulin Glargine 10 unit 10 unit QHS SC ; Start 08/29/16 at 21:00 Dextrose (D10w) 1,000 ml @ 40 mls/hr Q24H IV Last administered on 08/29/16 01 :30; Admin Dose 40 MLS/HR; Start 08/29/16 at 01:00 CELESTE BHATT MD Aug 29, 2016 11:44
--- NOTE | 2016-08-29 14:43 | PN ---
Date/Time of Note Date/Time of Note DATE: 08/29/16 TIME: 14:24 Assessment/Plan Lines/Catheters IV Catheter Type (from [facility] Peripheral IV Jimenez in Place (from [facility]): No Assessment/Plan Chief Complaint/Hosp Course -Bilateral lower extremity atherosclerosis with gangrene: It seems the patient has developed worsening of his fourth toe wound with his heel ulcer. Lower extremity arterial duplex demonstrated monophasic flow in the distal thigh of the graft. At the moment the patient had a NC and likely an acute stroke therefore a CT angiography was obtained that demonstrated adequate flow to the lower leg although concern for possible velocities were noted on Ultrasound. -Had a lengthy conversation with his daughter in regards to his current status and what he can tolerate and risks and benefits of performing a LE angiogram, decision was made to hold off on any further vascular intervention and allow him to improve medically. We further discussed his tissue loss/gangrene and at the moment they are stable and treating with antibiotics. Management has been discussed with our podiatry colleagues -Continue wound care per podiatry -Optimize vascular status (BP meds, diet, nutrition, exercise, sugar control, antiplatelets). -Discussed findings, plan and management with the patient and he understands. -Thank you for allowing us to partake in the care of your patient. Please call with any questions. Problems: Exam/Review of Systems Vital Signs Vitals Vital Signs Date Time Temp Pulse Resp B/P Pulse Ox O2 Delivery O2 Flow Rate FiO2 08/30/16 07:48 97.6 61 18 136/65 97 Intake and Output 08/29/16 08/29/16 08/30/16 15:00 23:00 07:00 Intake Total 810 ml 660 ml Output Total 30 ml Balance 810 ml 630 ml Exam Free Text/Dictation GENERAL: Alert and oriented x3 PULMONARY: Clear to auscultation bilaterally CARDIOVASCULAR: S1, S2 present. ABDOMEN: Soft, nontender, nondistended. Bowel sounds positive. EXTREMITIES: Right lower extremity: Palpable femoral pulse, nonpalpable pedal pulse. Motor and sensory intact, 4th toe and heel ulcer with dry gangrene. Surgical scars are well healed. Bypass that crosses over to the anterior tibial artery on the anterior espinal and palpable graft Results Result Diagram: 08/28/16 0510 08/29/16 0050 MARTÍNEZ ROSADO MD Aug 29, 2016 14:42
[2016-08-29 20:00] VITALS: BP 141/65; PULSE 71; RESP 18
[2016-08-29] MEDS: ATORVASTATIN 10 MG TAB PO SCH (20:39)
[2016-08-29] MEDS: TAMSULOSIN (SR) 0.4 MG CAP PO SCH (20:40)
[2016-08-29] MEDS: INSULIN GLARGINE [LANtus] 3 ML PEN SC SCH (20:50)
[2016-08-30] MEDS: morphine 2 MG INJ IV PRN ×2 (01:37→23:11)
[2016-08-30] MEDS: DEXTROSE 10% 1,000 ML IV SCH (01:46)
[2016-08-30] MEDS: ACCU-CHEK XX SCH (01:47)
[2016-08-30] MEDS: CIPROFLOXACIN 500 MG TAB NGT SCH (05:15)
[2016-08-30 07:48] VITALS: BP 136/65; RESP 18
[2016-08-30] MEDS: INSULIN ASPART [NOVOLOG] 3 ML PEN SC SCH ×4 (08:22→21:00)
[2016-08-30] MEDS: ASPIRIN 81 MG TAB PO SCH (08:47)
[2016-08-30] MEDS: LORATADINE 10 MG TAB PO SCH (08:47)
[2016-08-30] MEDS: L ACIDOPHIL/B LACTIS/B LONGUM CAPSULE PO SCH ×2 (08:47→21:00)
[2016-08-30] MEDS: APIXABAN 5 MG TABLET PO SCH ×2 (08:48→21:12)
[2016-08-30] MEDS: CALCIUM ACETATE 667 MG CAP PO SCH ×3 (08:48→18:08)
[2016-08-30] MEDS: MULTIVIT/CA CARB/B CMPLX/FA TAB PO SCH (08:48)
[2016-08-30] MEDS: DOXYCYCLINE 100 MG TAB NGT SCH ×2 (08:48→21:12)
[2016-08-30] MEDS: CALCITRIOL 0.25 MCG CAP PO SCH (08:49)
[2016-08-30] MEDS: ASCORBIC ACID 500 MG TAB PO SCH (08:49)
[2016-08-30] MEDS: CREON (24K-76K-120K) 1 CAP PO SCH ×3 (08:49→18:08)
[2016-08-30] MEDS: CLOPIDOGREL 75 MG TAB PO SCH (08:49)
[2016-08-30] MEDS: METOPROLOL 25 MG TAB PO SCH ×2 (08:58→21:14)
[2016-08-30] MEDS: SACCHAROMYCES BOULARDII 250 MG CAP PO SCH ×2 (10:40→21:12)
--- NOTE | 2016-08-30 12:37 | PN ---
Date/Time of Note Date/Time of Note DATE: 08/30/16 TIME: 12:24 Assessment/Plan VTE Prophylaxis VTE Prophylaxis Intervention: other Lines/Catheters IV [facility] Type (from [facility] Peripheral IV Urinary Cath still in place: No Assessment/Plan Chief Complaint/Hosp Course 1. ESRD on maintenance hemodialysis M [facility] . Next hemodialysis tomorrow 2. CAD he has had NSTEMI , he had a coronary angiogram and had 2 stents placed in the LAD. He is now on aspirin and Plavix. 3. IDDM , his blood sugars have been low. I will decrease his dose of Lantus insulin. 4. PAD , gangrene of R foot 4th toe . Vascular surgery says that we can wait to do an amputation . 5. cellulitis of R lower leg , improving on antibiotics. 6. postural hypotension . 7. Atrial fib/flutter, he is now on Eliquis . 8. Depression , he seems better . We talked about stopping dialysis . He wants to continue dialysis for now . 9. CVA , R frontal lobe infarct with L hemiparesis and slurred speech , improved . 10. dysphagia , with NG tube removed ,and to be re-evaluated by speech therapy . He is able to swallow and says that he is eating more. Hopefully will not have to replace NG or place PEG tube. 11. Discharge planning. His daughter is trying to find an ECF appropriate for him in [place]. Problems: Subjective 24 Hr Interval Summary Free Text/Dictation He is awake and responsive . Constitutional: improved, no complaints Respiratory: no complaints Cardiovascular: no complaints Gastrointestinal: no complaints Genitourinary: no complaints Musculoskeletal: no complaints Neurologic: focal-weakness Exam/Review of Systems Vital Signs Vitals Vital Signs Date Time Temp Pulse Resp B/P Pulse Ox O2 Delivery O2 Flow Rate FiO2 08/30/16 07:48 97.6 61 18 136/65 97 Intake and Output 08/29/16 08/29/16 08/30/16 15:00 23:00 07:00 Intake Total 810 ml 660 ml Output Total 30 ml Balance 810 ml 630 ml Exam L leg with BKA , R lower leg cellulitis is resolving , R foot 4th toe is gangrenous , dry Constitutional: alert, oriented Psych: depression Respiratory: clear to auscultation, normal air movement Cardiovascular: irregular rhythm Gastrointestinal: non-tender, soft Results Result Diagram: 08/28/16 0510 08/29/16 0050 Results 24 hrs Laboratory Tests Test 08/29/16 17:29 08/29/16 20:47 08/30/16 01:41 08/30/16 08:17 Bedside Glucose 155 195 181 146 Medications Medications Current Medications Acetaminophen/ Hydrocodone Bitart ([place] (5/325)) 1 tab Q6H PRN PO MODERATE PAIN LEVEL 4-6 Last administered on 08/29/16 01:19; Admin Dose 1 TAB; Start 08/14/16 at 14:30 Zolpidem Tartrate (Ambien) 5 mg QHS PRN PO SLEEP; Start 08/14/16 at 14:30 Acetaminophen (Tylenol Tab) 650 mg Q4 PRN PO PAIN AND OR ELEVATED TEMP; Start 08/14/16 at 14:30 Ascorbic Acid (Vitamin C) 500 mg DAILY PO Last administered on 08/30/16 08:49 ; Admin Dose 500 MG; Start 08/15/16 at 09:00 Aspirin (Aspirin) 81 mg DAILY PO Last administered on 08/30/16 08:47; Admin Dose 81 MG; Start 08/15/16 at 09:00 Bisacodyl (Dulcolax Supp) 10 mg DAILY PRN [place] BM; Start 08/14/16 at 14:30 Calcitriol (Rocaltrol) 0.25 mcg DAILY PO Last administered on 08/30/16 08:49; Admin Dose 0.25 MCG; Start 08/15/16 at 09:00 Loratadine (Claritin) 10 mg DAILY PO Last administered on 08/30/16 08:47; Admin Dose 10 MG; Start 08/15/16 at 09:00 Multivit/Ca Carb/ B Cmplx/FA/Prenat (Sarika-Nahomi) 1 tab DAILY PO Last administered on 08/30/16 08:48; Admin Dose 1 TAB; Start 08/15/16 at 09:00 Saccharomyces Boulardii (Florastor) 500 mg BID PO Last administered on 10:40; Admin Dose 500 MG; Start 08/14/16 at 21:00 Tamsulosin HCl (Flomax) 0.4 mg HS PO Last administered on 08/29/16 20:40; Admin Dose 0.4 MG; Start 08/14/16 at 21:00 Miscellaneous Information 1 ea NOTE XX ; Start 08/14/16 at 15:30 Glucose (Glutose) 15 gm Q15M PRN PO DECREASED GLUCOSE; Start 08/14/16 at 15:30 Glucose (Glutose) 22.5 gm Q15M PRN PO DECREASED GLUCOSE; Start 08/14/16 at 15:30 Dextrose (D50w Syringe) 25 ml Q15M PRN IV DECREASED GLUCOSE Last administered on 08/28/16 23:45; Admin Dose 25 ML; Start 08/14/16 at 15:30 Dextrose (D50w Syringe) 50 ml Q15M PRN IV DECREASED GLUCOSE Last administered on 08/17/16 21:14; Admin Dose 50 ML; Start 08/14/16 at 15:30 Glucagon (Glucagen) 1 mg Q15M PRN IM DECREASED GLUCOSE; Start 08/14/16 at 15:30 Glucose (Glutose) 15 gm Q15M PRN BUCCAL DECREASED GLUCOSE; Start 08/14/16 at 15: 30 Diagnostic Test (Pha) (Accu-Chek) 1 ea 02 XX Last administered on 08/26/16 02: 00; Admin Dose 1 EA; Start 08/16/16 at 02:00 Ondansetron HCl (Zofran Inj) 4 mg Q4H PRN IV NAUSEA AND/OR VOMITING Last administered on 08/22/16 09:34; Admin Dose 4 MG; Start 08/16/16 at 09:30 Ondansetron HCl (Zofran Odt) 4 mg Q6H PRN ODT NAUSEA; Start 08/16/16 at 09:30 Lactobacillus Acidophilus (Florajen3 Capsule) 1 each BID PO Last administered on 08/30/16 08:47; Admin Dose 1 EACH; Start 08/17/16 at 09:00 Atorvastatin Calcium (Lipitor) 10 mg QHS PO Last administered on 08/29/16 20: 39; Admin Dose 10 MG; Start 08/17/16 at 21:00 Clopidogrel Bisulfate (plaVIX) 75 mg DAILY PO Last administered on 08/30/16 08 :49; Admin Dose 75 MG; Start 08/18/16 at 09:00 Metoprolol Tartrate (Lopressor) 37.5 mg BID PO Last administered on 08/30/16 08:58; Admin Dose 37.5 MG; Start 08/20/16 at 10:00 Morphine Sulfate (morphine) 1 mg Q2H PRN IV PAIN Last administered on 01:37; Admin Dose 1 MG; Start 08/21/16 at 19:00 Apixaban (Eliquis) 2.5 mg BID PO Last administered on 08/30/16 08:48; Admin Dose 2.5 MG; Start 08/23/16 at 11:30 Ciprofloxacin (Cipro) 500 mg DAILY@06 NGT Last administered on 08/30/16 05:15 ; Admin Dose 500 MG; Start 08/27/16 at 06:00 Doxycycline Hyclate (Vibramycin) 100 mg BID NGT Last administered on 08/30/16 08:48; Admin Dose 100 MG; Start 08/26/16 at 09:00 Insulin Glargine 10 unit 10 unit QHS SC Last administered on 08/29/16 20:50; Admin Dose 10 UNIT; Start 08/29/16 at 21:00 Dextrose (D10w) 1,000 ml @ 40 mls/hr Q24H IV Last administered on 08/30/16 01 :46; Admin Dose 40 MLS/HR; Start 08/29/16 at 01:00 CELESTE BHATT MD Aug 30, 2016 12:35
--- NOTE | 2016-08-30 12:52 | PN ---
Date/Time of Note Date/Time of Note DATE: 08/30/16 TIME: 12:51 Assessment/Plan Lines/Catheters IV C[facility]ter Type (from [facility]): Peripheral IV Jimenez in Place (from [facility]): No Assessment/Plan Chief Complaint/Hosp Course -Bilateral lower extremity atherosclerosis with gangrene: It seems the patient has developed worsening of his fourth toe wound with his heel ulcer. Lower extremity arterial duplex demonstrated monophasic flow in the distal thigh of the graft. At the moment the patient had a RI and likely an acute stroke therefore a CT angiography was obtained that demonstrated adequate flow to the lower leg although concern for possible velocities were noted on Ultrasound. -Had a lengthy conversation with his daughter in regards to his current status and what he can tolerate and risks and benefits of performing a LE angiogram, decision was made to hold off on any further vascular intervention and allow him to improve medically. We further discussed his tissue loss/gangrene and at the moment they are stable and treating with antibiotics. Management has been discussed with our podiatry colleagues -Continue wound care per podiatry -Optimize vascular status (BP meds, diet, nutrition, exercise, sugar control, antiplatelets). -Discussed findings, plan and management with the patient and he understands. -Thank you for allowing us to partake in the care of your patient. Please call with any questions. Problems: Subjective 24 Hr Interval Summary no new vascular events overnight, tolerating diet better Exam/Review of Systems Vital Signs Vitals Vital Signs Date Time Temp Pulse Resp B/P Pulse Ox O2 Delivery O2 Flow Rate FiO2 08/30/16 07:48 97.6 61 18 136/65 97 Intake and Output 08/29/16 08/29/16 08/30/16 15:00 23:00 07:00 Intake Total 810 ml 660 ml Output Total 30 ml Balance 810 ml 630 ml Exam Free Text/Dictation GENERAL: Alert and oriented x3 PULMONARY: Clear to auscultation bilaterally CARDIOVASCULAR: S1, S2 present. ABDOMEN: Soft, nontender, nondistended. Bowel sounds positive. EXTREMITIES: Right lower extremity: Palpable femoral pulse, nonpalpable pedal pulse. Motor and sensory intact, 4th toe and heel ulcer with dry gangrene. Surgical scars are well healed. Bypass that crosses over to the anterior tibial artery on the anterior espinal and palpable graft Results Result Diagram: 08/28/16 0510 08/29/16 0050 MARTÍNEZ ROSADO MD Aug 30, 2016 12:52
--- NOTE | 2016-08-30 12:55 | CONS ---
Date/Time of Note Date/Time of Note DATE: 08/30/16 TIME: 12:52 Assessment/Plan Assessment/Plan Chief Complaint/Hosp Course 1. ESRD on maintenance hemodialysis M W F . Next hemodialysis tomorrow 2. CAD he has had NSTEMI , he had a coronary angiogram and had 2 stents placed in the LAD. He is now on aspirin and Plavix. 3. IDDM , his blood sugars have been low. I will decrease his dose of Lantus insulin. 4. PAD , gangrene of R foot 4th toe . Vascular surgery says that we can wait to do an amputation . 5. cellulitis of R lower leg , improving on antibiotics. 6. postural hypotension . 7. Atrial fib/flutter, he is now on Eliquis . 8. Depression , he seems better . We talked about stopping dialysis . He wants to continue dialysis for now . 9. CVA , R frontal lobe infarct with L hemiparesis and slurred speech , improved . 10. dysphagia , with NG tube removed ,and to be re-evaluated by speech therapy . He is able to swallow and says that he is eating more. Hopefully will not have to replace NG or place PEG tube. 11. Discharge planning. His daughter is trying to find an ECF appropriate for him in [place]. Problems: Consultation Date/Type/Reason Admit Date/Time Aug 14, 2016 at 14:49 Initial Consult Date 08/15/16 Type of Consultation: ID Referring Provider: CELESTE BHATT MD Exam/Review of Systems Vital Signs Vitals Vital Signs Date Time Temp Pulse Resp B/P Pulse Ox O2 Delivery O2 Flow Rate FiO2 08/30/16 07:48 97.6 61 18 136/65 97 Intake and Output 08/29/16 08/29/16 08/30/16 15:00 23:00 07:00 Intake Total 810 ml 660 ml Output Total 30 ml Balance 810 ml 630 ml Exam Constitutional: alert, frail, oriented Respiratory: clear to auscultation, normal air movement Cardiovascular: edema, irregular rhythm Gastrointestinal: non-tender, soft Extremities: edema Results Result Diagram: 08/28/16 0510 08/29/16 0050 Results 24 hrs Laboratory Tests Test 08/29/16 17:29 08/29/16 20:47 08/30/16 01:41 08/30/16 08:17 Bedside Glucose 155 195 181 146 Test 08/30/16 12:25 Bedside Glucose 140 Medications Medications Current Medications Acetaminophen/ Hydrocodone Bitart ([place] (5/325)) 1 tab Q6H PRN PO MODERATE PAIN LEVEL 4-6 Last administered on 08/29/16 01:19; Admin Dose 1 TAB; Start 08/14/16 at 14:30 Zolpidem Tartrate (Ambien) 5 mg QHS PRN PO SLEEP; Start 08/14/16 at 14:30 Acetaminophen (Tylenol Tab) 650 mg Q4 PRN PO PAIN AND OR ELEVATED TEMP; Start 08/14/16 at 14:30 Ascorbic Acid (Vitamin C) 500 mg DAILY PO Last administered on 08/30/16 08:49 ; Admin Dose 500 MG; Start 08/15/16 at 09:00 Aspirin (Aspirin) 81 mg DAILY PO Last administered on 08/30/16 08:47; Admin Dose 81 MG; Start 08/15/16 at 09:00 Bisacodyl (Dulcolax Supp) 10 mg DAILY PRN [place] BM; Start 08/14/16 at 14:30 Calcitriol (Rocaltrol) 0.25 mcg DAILY PO Last administered on 08/30/16 08:49; Admin Dose 0.25 MCG; Start 08/15/16 at 09:00 Loratadine (Claritin) 10 mg DAILY PO Last administered on 08/30/16 08:47; Admin Dose 10 MG; Start 08/15/16 at 09:00 Multivit/Ca Carb/ B Cmplx/FA/Prenat (Sarika-Nahomi) 1 tab DAILY PO Last administered on 08/30/16 08:48; Admin Dose 1 TAB; Start 08/15/16 at 09:00 Saccharomyces Boulardii (Florastor) 500 mg BID PO Last administered on 10:40; Admin Dose 500 MG; Start 08/14/16 at 21:00 Tamsulosin HCl (Flomax) 0.4 mg HS PO Last administered on 08/29/16 20:40; Admin Dose 0.4 MG; Start 08/14/16 at 21:00 Miscellaneous Information 1 ea NOTE XX ; Start 08/14/16 at 15:30 Glucose (Glutose) 15 gm Q15M PRN PO DECREASED GLUCOSE; Start 08/14/16 at 15:30 Glucose (Glutose) 22.5 gm Q15M PRN PO DECREASED GLUCOSE; Start 08/14/16 at 15:30 Dextrose (D50w Syringe) 25 ml Q15M PRN IV DECREASED GLUCOSE Last administered on 08/28/16 23:45; Admin Dose 25 ML; Start 08/14/16 at 15:30 Dextrose (D50w Syringe) 50 ml Q15M PRN IV DECREASED GLUCOSE Last administered on 08/17/16 21:14; Admin Dose 50 ML; Start 08/14/16 at 15:30 Glucagon (Glucagen) 1 mg Q15M PRN IM DECREASED GLUCOSE; Start 08/14/16 at 15:30 Glucose (Glutose) 15 gm Q15M PRN BUCCAL DECREASED GLUCOSE; Start 08/14/16 at 15: 30 Diagnostic Test (Pha) (Accu-Chek) 1 ea 02 XX Last administered on 08/26/16 02: 00; Admin Dose 1 EA; Start 08/16/16 at 02:00 Ondansetron HCl (Zofran Inj) 4 mg Q4H PRN IV NAUSEA AND/OR VOMITING Last administered on 08/22/16 09:34; Admin Dose 4 MG; Start 08/16/16 at 09:30 Ondansetron HCl (Zofran Odt) 4 mg Q6H PRN ODT NAUSEA; Start 08/16/16 at 09:30 Lactobacillus Acidophilus (Florajen3 Capsule) 1 each BID PO Last administered on 08/30/16 08:47; Admin Dose 1 EACH; Start 08/17/16 at 09:00 Atorvastatin Calcium (Lipitor) 10 mg QHS PO Last administered on 08/29/16 20: 39; Admin Dose 10 MG; Start 08/17/16 at 21:00 Clopidogrel Bisulfate (plaVIX) 75 mg DAILY PO Last administered on 08/30/16 08 :49; Admin Dose 75 MG; Start 08/18/16 at 09:00 Metoprolol Tartrate (Lopressor) 37.5 mg BID PO Last administered on 08/30/16 08:58; Admin Dose 37.5 MG; Start 08/20/16 at 10:00 Morphine Sulfate (morphine) 1 mg Q2H PRN IV PAIN Last administered on 01:37; Admin Dose 1 MG; Start 08/21/16 at 19:00 Apixaban (Eliquis) 2.5 mg BID PO Last administered on 08/30/16 08:48; Admin Dose 2.5 MG; Start 08/23/16 at 11:30 Ciprofloxacin (Cipro) 500 mg DAILY@06 NGT Last administered on 08/30/16 05:15 ; Admin Dose 500 MG; Start 08/27/16 at 06:00 Doxycycline Hyclate (Vibramycin) 100 mg BID NGT Last administered on 08/30/16 08:48; Admin Dose 100 MG; Start 08/26/16 at 09:00 Insulin Glargine 10 unit 10 unit QHS SC Last administered on 08/29/16 20:50; Admin Dose 10 UNIT; Start 08/29/16 at 21:00 Dextrose (D10w) 1,000 ml @ 40 mls/hr Q24H IV Last administered on 08/30/16 01 :46; Admin Dose 40 MLS/HR; Start 08/29/16 at 01:00 CELESTE BHATT MD Aug 30, 2016 12:55 :46; Admin Dose 40 MLS/HR; Start 08/29/16 at 01:00 CELESTE BHATT MD Aug 30, 2016 12:55
[2016-08-30 20:00] VITALS: BP 136/63; RESP 16
[2016-08-30] MEDS: ATORVASTATIN 10 MG TAB PO SCH (21:12)
[2016-08-30] MEDS: TAMSULOSIN (SR) 0.4 MG CAP PO SCH (21:13)
[2016-08-30] MEDS: INSULIN GLARGINE [LANtus] 3 ML PEN SC SCH (21:23)
[2016-08-31] VITALS (10 sets, daily range): BP systolic 118–142; BP diastolic 50–70; PULSE 64–78; RESP 18–20
[2016-08-31] MEDS: ACCU-CHEK XX SCH (01:43)
[2016-08-31] MEDS: CIPROFLOXACIN 500 MG TAB NGT SCH (06:04)
[2016-08-31] MEDS: CALCIUM ACETATE 667 MG CAP PO SCH ×3 (08:15→17:48)
[2016-08-31] MEDS: CREON (24K-76K-120K) 1 CAP PO SCH ×3 (08:15→17:48)
[2016-08-31] MEDS: INSULIN ASPART [NOVOLOG] 3 ML PEN SC SCH ×4 (08:15→20:14)
--- NOTE | 2016-08-31 08:42 | PN ---
Date/Time of Note Date/Time of Note DATE: 08/31/16 TIME: 08:38 Assessment/Plan VTE Prophylaxis VTE Prophylaxis Intervention: other Lines/Catheters IV [facility] Type [facility]from [facility]): Saline Lock Urinary Cath still in place: No Assessment/Plan Chief Complaint/Hosp Course 1. ESRD on maintenance hemodialysis M W F . He is having hemodialysis treatment now . 2. CAD he has had NSTEMI , he had a coronary angiogram and had 2 stents placed in the LAD. He is now on aspirin and Plavix. 3. IDDM , his blood sugars have been low. I will decrease his dose of Lantus insulin. 4. PAD , gangrene of R foot 4th toe . Vascular surgery says that we can wait to do an amputation . 5. cellulitis of R lower leg , improving on antibiotics. 6. postural hypotension . 7. Atrial fib/flutter, he is now on Eliquis . 8. Depression , he seems better . We talked about stopping dialysis . He wants to continue dialysis for now . 9. CVA , R frontal lobe infarct with L hemiparesis and slurred speech , improved . 10. dysphagia , with NG tube removed ,and to be re-evaluated by speech therapy . He is able to swallow and says that he is eating more. 11. Discharge planning. His daughter is trying to find an ECF appropriate for him in [place]. Problems: Subjective 24 Hr Interval Summary Free Text/Dictation He is now having hemodialysis treatment . Constitutional: no complaints Cardiovascular: no complaints Gastrointestinal: no complaints Genitourinary: no complaints Musculoskeletal: no complaints Neurologic: focal-weakness Exam/Review of Systems Vital Signs Vitals Vital Signs Date Time Temp Pulse Resp B/P Pulse Ox O2 Delivery O2 Flow Rate FiO2 08/31/16 08:04 98.3 20 138/60 98 08/30/16 20:00 60 Intake and Output 08/30/16 08/30/16 08/31/16 15:00 23:00 07:00 Intake Total 320 ml 280 ml 380 ml Balance 320 ml 280 ml 380 ml Exam L BKA . R foot with gangrenous 4th toe . R leg erythema has improved . Constitutional: alert, frail, oriented Respiratory: clear to auscultation, normal air movement Cardiovascular: irregular rhythm Gastrointestinal: soft Results Result Diagram: 08/28/16 0510 08/29/16 0050 Results 24 hrs Laboratory Tests Test 08/30/16 12:25 08/30/16 17:50 08/30/16 21:11 Bedside Glucose 140 190 133 Medications Medications Current Medications Acetaminophen/ Hydrocodone Bitart ([place] (5/325)) 1 tab Q6H PRN PO MODERATE PAIN LEVEL 4-6 Last administered on 08/29/16 01:19; Admin Dose 1 TAB; Start 08/14/16 at 14:30 Zolpidem Tartrate (Ambien) 5 mg QHS PRN PO SLEEP; Start 08/14/16 at 14:30 Acetaminophen (Tylenol Tab) 650 mg Q4 PRN PO PAIN AND OR ELEVATED TEMP; Start 08/14/16 at 14:30 Ascorbic Acid (Vitamin C) 500 mg DAILY PO Last administered on 08/30/16 08:49 ; Admin Dose 500 MG; Start 08/15/16 at 09:00 Aspirin (Aspirin) 81 mg DAILY PO Last administered on 08/30/16 08:47; Admin Dose 81 MG; Start 08/15/16 at 09:00 Bisacodyl (Dulcolax Supp) 10 mg DAILY PRN [place] BM; Start 08/14/16 at 14:30 Calcitriol (Rocaltrol) 0.25 mcg DAILY PO Last administered on 08/30/16 08:49; Admin Dose 0.25 MCG; Start 08/15/16 at 09:00 Loratadine (Claritin) 10 mg DAILY PO Last administered on 08/30/16 08:47; Admin Dose 10 MG; Start 08/15/16 at 09:00 Multivit/Ca Carb/ B Cmplx/FA/Prenat (Sarika-Nahomi) 1 tab DAILY PO Last administered on 08/30/16 08:48; Admin Dose 1 TAB; Start 08/15/16 at 09:00 Saccharomyces Boulardii (Florastor) 500 mg BID PO Last administered on 21:12; Admin Dose 500 MG; Start 08/14/16 at 21:00 Tamsulosin HCl (Flomax) 0.4 mg HS PO Last administered on 08/30/16 21:13; Admin Dose 0.4 MG; Start 08/14/16 at 21:00 Miscellaneous Information 1 ea NOTE XX ; Start 08/14/16 at 15:30 Glucose (Glutose) 15 gm Q15M PRN PO DECREASED GLUCOSE; Start 08/14/16 at 15:30 Glucose (Glutose) 22.5 gm Q15M PRN PO DECREASED GLUCOSE; Start 08/14/16 at 15:30 Dextrose (D50w Syringe) 25 ml Q15M PRN IV DECREASED GLUCOSE Last administered on 08/28/16 23:45; Admin Dose 25 ML; Start 08/14/16 at 15:30 Dextrose (D50w Syringe) 50 ml Q15M PRN IV DECREASED GLUCOSE Last administered on 08/17/16 21:14; Admin Dose 50 ML; Start 08/14/16 at 15:30 Glucagon (Glucagen) 1 mg Q15M PRN IM DECREASED GLUCOSE; Start 08/14/16 at 15:30 Glucose (Glutose) 15 gm Q15M PRN BUCCAL DECREASED GLUCOSE; Start 08/14/16 at 15: 30 Diagnostic Test (Pha) (Accu-Chek) 1 ea 02 XX Last administered on 08/26/16 02: 00; Admin Dose 1 EA; Start 08/16/16 at 02:00 Ondansetron HCl (Zofran Inj) 4 mg Q4H PRN IV NAUSEA AND/OR VOMITING Last administered on 08/22/16 09:34; Admin Dose 4 MG; Start 08/16/16 at 09:30 Ondansetron HCl (Zofran Odt) 4 mg Q6H PRN ODT NAUSEA; Start 08/16/16 at 09:30 Lactobacillus Acidophilus (Florajen3 Capsule) 1 each BID PO Last administered on 08/30/16 08:47; Admin Dose 1 EACH; Start 08/17/16 at 09:00 Atorvastatin Calcium (Lipitor) 10 mg QHS PO Last administered on 08/30/16 21: 12; Admin Dose 10 MG; Start 08/17/16 at 21:00 Clopidogrel Bisulfate (plaVIX) 75 mg DAILY PO Last administered on 08/30/16 08 :49; Admin Dose 75 MG; Start 08/18/16 at 09:00 Metoprolol Tartrate (Lopressor) 37.5 mg BID PO Last administered on 08/30/16 21:14; Admin Dose 37.5 MG; Start 08/20/16 at 10:00 Morphine Sulfate (morphine) 1 mg Q2H PRN IV PAIN Last administered on 23:11; Admin Dose 1 MG; Start 08/21/16 at 19:00 Apixaban (Eliquis) 2.5 mg BID PO Last administered on 08/30/16 21:12; Admin Dose 2.5 MG; Start 08/23/16 at 11:30 Ciprofloxacin (Cipro) 500 mg DAILY@06 NGT Last administered on 08/31/16 06:04 ; Admin Dose 500 MG; Start 08/27/16 at 06:00 Doxycycline Hyclate (Vibramycin) 100 mg BID NGT Last administered on 08/30/16 21:12; Admin Dose 100 MG; Start 08/26/16 at 09:00 Insulin Glargine (Lantus) 10 unit QHS SC Last administered on 08/30/16 21:23; Admin Dose 10 UNIT; Start 08/29/16 at 21:00 CELESTE BHATT MD Aug 31, 2016 08:42
[2016-08-31] MEDS: L ACIDOPHIL/B LACTIS/B LONGUM CAPSULE PO SCH ×2 (09:00→22:22)
[2016-08-31] MEDS: SACCHAROMYCES BOULARDII 250 MG CAP PO SCH ×2 (09:00→20:13)
[2016-08-31] MEDS: MULTIVIT/CA CARB/B CMPLX/FA TAB PO SCH (12:04)
[2016-08-31] MEDS: CALCITRIOL 0.25 MCG CAP PO SCH (12:04)
[2016-08-31] MEDS: DOXYCYCLINE 100 MG TAB NGT SCH ×2 (12:04→20:14)
[2016-08-31] MEDS: ASCORBIC ACID 500 MG TAB PO SCH (12:05)
[2016-08-31] MEDS: ASPIRIN 81 MG TAB PO SCH (12:05)
[2016-08-31] MEDS: METOPROLOL 25 MG TAB PO SCH ×2 (12:05→20:13)
[2016-08-31] MEDS: CLOPIDOGREL 75 MG TAB PO SCH (12:05)
[2016-08-31] MEDS: APIXABAN 5 MG TABLET PO SCH ×2 (12:05→20:14)
[2016-08-31] MEDS: LORATADINE 10 MG TAB PO SCH (12:05)
[2016-08-31] MEDS: TAMSULOSIN (SR) 0.4 MG CAP PO SCH (20:14)
[2016-08-31] MEDS: ATORVASTATIN 10 MG TAB PO SCH (20:14)
[2016-08-31] MEDS: INSULIN GLARGINE [LANtus] 3 ML PEN SC SCH (20:17)
[2016-08-31] MEDS: morphine 2 MG INJ IV PRN (22:22)
[2016-09-01] MEDS: ACCU-CHEK XX SCH (02:00)
[2016-09-01] MEDS: CIPROFLOXACIN 500 MG TAB NGT SCH (05:41)
[2016-09-01 08:14] VITALS: BP 131/60; RESP 20
[2016-09-01] MEDS: INSULIN ASPART [NOVOLOG] 3 ML PEN SC SCH ×4 (08:15→23:00)
--- NOTE | 2016-09-01 08:18 | PN ---
Date/Time of Note Date/Time of Note DATE: 09/01/16 TIME: 08:12 Assessment/Plan Lines/Catheters IV C[facility] Type (from [facility] Saline Lock Jimenez in Place (from [facility]): No Assessment/Plan Chief Complaint/Hosp Course -Bilateral lower extremity atherosclerosis with gangrene: It seems the patient has developed worsening of his fourth toe wound with his heel ulcer. Lower extremity arterial duplex demonstrated monophasic flow in the distal thigh of the graft. At the moment the patient had a CA and likely an acute stroke therefore a CT angiography was obtained that demonstrated adequate flow to the lower leg although concern for possible velocities were noted on Ultrasound. -Had a lengthy conversation with his daughter in regards to his current status and what he can tolerate and risks and benefits of performing a LE angiogram, decision was made to hold off on any further vascular intervention and allow him to improve medically. We further discussed his foot cellulitis and tissue loss/gangrene and at the moment they are stable/dry and treated with antibiotics , therefore recommend continue with conservative management for now. Management has been discussed with our podiatry colleagues -From vascular standpoint can initiate D/C planning, followup in office 1-2 weeks -Continue wound care per podiatry -Optimize vascular status (BP meds, diet, nutrition, exercise, sugar control, antiplatelets). -Discussed findings, plan and management with the patient and he understands. -Thank you for allowing us to partake in the care of your patient. Please call with any questions. Problems: Subjective 24 Hr Interval Summary no new vascular changes overnight Exam/Review of Systems Vital Signs Vitals Vital Signs Date Time Temp Pulse Resp B/P Pulse Ox O2 Delivery O2 Flow Rate FiO2 08/31/16 20:11 98.2 64 18 130/62 96 Room Air Intake and Output 08/31/16 08/31/16 09/01/16 15:00 23:00 07:00 Intake Total 400 ml 240 ml 300 ml Output Total 2400 ml 20 ml Balance -2000 ml 240 ml 280 ml Exam Free Text/Dictation GENERAL: Alert and oriented x3 PULMONARY: Clear to auscultation bilaterally CARDIOVASCULAR: S1, S2 present. ABDOMEN: Soft, nontender, nondistended. Bowel sounds positive. EXTREMITIES: Right lower extremity: Palpable femoral pulse, nonpalpable pedal pulse. Motor and sensory intact, 4th toe and heel ulcer with stable dry gangrene. Surgical scars are well healed. Bypass that crosses over to the anterior tibial artery on the anterior espinal is palpable Results Result Diagram: 08/28/16 0510 08/29/16 0050 MARTÍNEZ ROSADO MD Sep 01, 2016 08:17
--- NOTE | 2016-09-01 08:35 | PN ---
Date/Time of Note Date/Time of Note DATE: 09/01/16 TIME: 08:32 Assessment/Plan VTE Prophylaxis VTE Prophylaxis Intervention: other Lines/Catheters IV Catheter Type (from [facility]): Saline Lock Urinary Cath still in place: No Assessment/Plan Chief Complaint/Hosp Course 1. ESRD on maintenance hemodialysis M W F . Hemodialysis has been ordered for tomorrow.. 2. CAD he has had NSTEMI , he had a coronary angiogram and had 2 stents placed in the LAD. He is now on aspirin and Plavix. 3. IDDM , his blood sugars have been under control. 4. PAD , gangrene of R foot 4th toe . Vascular surgery says that we can wait to do an amputation . 5. cellulitis of R lower leg , improving on antibiotics. 6. postural hypotension . 7. Atrial fib/flutter, he is now on Eliquis . 8. Depression , he seems better . We talked about stopping dialysis . He wants to continue dialysis for now . 9. CVA , R frontal lobe infarct with L hemiparesis and slurred speech , improved . 10. dysphagia . He is able to swallow and says that he is eating more. 11. Discharge planning. His daughter is trying to find an ECF appropriate for him in this area. Problems: Subjective 24 Hr Interval Summary Free Text/Dictation He is sleeping. He arouses easily and is responsive. Constitutional: no complaints Respiratory: no complaints Cardiovascular: no complaints Gastrointestinal: no complaints Genitourinary: no complaints Exam/Review of Systems Vital Signs Vitals Vital Signs Date Time Temp Pulse Resp B/P Pulse Ox O2 Delivery O2 Flow Rate FiO2 09/01/16 08:14 97.9 59 20 131/60 97 08/31/16 20:11 Room Air Intake and Output 08/31/16 08/31/16 09/01/16 15:00 23:00 07:00 Intake Total 400 ml 240 ml 300 ml Output Total 2400 ml 20 ml Balance -2000 ml 240 ml 280 ml Exam He has a left below the knee amputation and a right leg with a fourth gangrenous toe. The erythema on the right lower leg has resolved. Constitutional: frail Psych: depression Respiratory: clear to auscultation, normal air movement Cardiovascular: irregular rhythm Gastrointestinal: soft Results Result Diagram: 08/28/16 0510 08/29/16 0050 Results 24 hrs Laboratory Tests Test 08/31/16 12:02 08/31/16 17:24 08/31/16 20:03 09/01/16 08:20 Bedside Glucose 109 119 145 98 Medications Medications Current Medications Acetaminophen/ Hydrocodone Bitart ([place] (5/325)) 1 tab Q6H PRN PO MODERATE PAIN LEVEL 4-6 Last administered on 08/29/16 01:19; Admin Dose 1 TAB; Start 08/14/16 at 14:30 Zolpidem Tartrate (Ambien) 5 mg QHS PRN PO SLEEP; Start 08/14/16 at 14:30 Acetaminophen (Tylenol Tab) 650 mg Q4 PRN PO PAIN AND OR ELEVATED TEMP; Start 08/14/16 at 14:30 Ascorbic Acid (Vitamin C) 500 mg DAILY PO Last administered on 08/31/16 12:05 ; Admin Dose 500 MG; Start 08/15/16 at 09:00 Aspirin (Aspirin) 81 mg DAILY PO Last administered on 08/31/16 12:05; Admin Dose 81 MG; Start 08/15/16 at 09:00 Bisacodyl (Dulcolax Supp) 10 mg DAILY PRN [place] BM; Start 08/14/16 at 14:30 Calcitriol (Rocaltrol) 0.25 mcg DAILY PO Last administered on 08/31/16 12:04; Admin Dose 0.25 MCG; Start 08/15/16 at 09:00 Loratadine (Claritin) 10 mg DAILY PO Last administered on 08/31/16 12:05; Admin Dose 10 MG; Start 08/15/16 at 09:00 Multivit/Ca Carb/ B Cmplx/FA/Prenat (Sarika-Nahomi) 1 tab DAILY PO Last administered on 08/31/16 12:04; Admin Dose 1 TAB; Start 08/15/16 at 09:00 Saccharomyces Boulardii (Florastor) 500 mg BID PO Last administered on 20:13; Admin Dose 500 MG; Start 08/14/16 at 21:00 Tamsulosin HCl (Flomax) 0.4 mg HS PO Last administered on 08/31/16 20:14; Admin Dose 0.4 MG; Start 08/14/16 at 21:00 Miscellaneous Information 1 ea NOTE XX ; Start 08/14/16 at 15:30 Glucose (Glutose) 15 gm Q15M PRN PO DECREASED GLUCOSE; Start 08/14/16 at 15:30 Glucose (Glutose) 22.5 gm Q15M PRN PO DECREASED GLUCOSE; Start 08/14/16 at 15:30 Dextrose (D50w Syringe) 25 ml Q15M PRN IV DECREASED GLUCOSE Last administered on 08/28/16 23:45; Admin Dose 25 ML; Start 08/14/16 at 15:30 Dextrose (D50w Syringe) 50 ml Q15M PRN IV DECREASED GLUCOSE Last administered on 08/17/16 21:14; Admin Dose 50 ML; Start 08/14/16 at 15:30 Glucagon (Glucagen) 1 mg Q15M PRN IM DECREASED GLUCOSE; Start 08/14/16 at 15:30 Glucose (Glutose) 15 gm Q15M PRN BUCCAL DECREASED GLUCOSE; Start 08/14/16 at 15: 30 Diagnostic Test (Pha) (Accu-Chek) 1 ea 02 XX Last administered on 08/26/16 02: 00; Admin Dose 1 EA; Start 08/16/16 at 02:00 Ondansetron HCl (Zofran Inj) 4 mg Q4H PRN IV NAUSEA AND/OR VOMITING Last administered on 08/22/16 09:34; Admin Dose 4 MG; Start 08/16/16 at 09:30 Ondansetron HCl (Zofran Odt) 4 mg Q6H PRN ODT NAUSEA; Start 08/16/16 at 09:30 Lactobacillus Acidophilus (Florajen3 Capsule) 1 each BID PO Last administered on 08/31/16 22:22; Admin Dose 1 EACH; Start 08/17/16 at 09:00 Atorvastatin Calcium (Lipitor) 10 mg QHS PO Last administered on 08/31/16 20: 14; Admin Dose 10 MG; Start 08/17/16 at 21:00 Clopidogrel Bisulfate (plaVIX) 75 mg DAILY PO Last administered on 08/31/16 12 :05; Admin Dose 75 MG; Start 08/18/16 at 09:00 Metoprolol Tartrate (Lopressor) 37.5 mg BID PO Last administered on 08/31/16 20:13; Admin Dose 37.5 MG; Start 08/20/16 at 10:00 Morphine Sulfate (morphine) 1 mg Q2H PRN IV PAIN Last administered on 22:22; Admin Dose 1 MG; Start 08/21/16 at 19:00 Apixaban (Eliquis) 2.5 mg BID PO Last administered on 08/31/16 20:14; Admin Dose 2.5 MG; Start 08/23/16 at 11:30 Ciprofloxacin (Cipro) 500 mg DAILY@06 NGT Last administered on 09/01/16 05:41 ; Admin Dose 500 MG; Start 08/27/16 at 06:00 Doxycycline Hyclate (Vibramycin) 100 mg BID NGT Last administered on 08/31/16 20:14; Admin Dose 100 MG; Start 08/26/16 at 09:00 Insulin Glargine (Lantus) 10 unit QHS SC Last administered on 08/31/16 20:17; Admin Dose 10 UNIT; Start 08/29/16 at 21:00 CELESTE BHATT MD Sep 01, 2016 08:35
[2016-09-01] MEDS: MULTIVIT/CA CARB/B CMPLX/FA TAB PO SCH (08:51)
[2016-09-01] MEDS: CALCITRIOL 0.25 MCG CAP PO SCH (08:51)
[2016-09-01] MEDS: CREON (24K-76K-120K) 1 CAP PO SCH ×3 (08:51→18:00)
[2016-09-01] MEDS: CALCIUM ACETATE 667 MG CAP PO SCH ×3 (08:51→18:00)
[2016-09-01] MEDS: CLOPIDOGREL 75 MG TAB PO SCH (08:52)
[2016-09-01] MEDS: DOXYCYCLINE 100 MG TAB NGT SCH ×2 (08:52→22:49)
[2016-09-01] MEDS: SACCHAROMYCES BOULARDII 250 MG CAP PO SCH ×2 (08:52→22:55)
[2016-09-01] MEDS: LORATADINE 10 MG TAB PO SCH (08:52)
[2016-09-01] MEDS: ASCORBIC ACID 500 MG TAB PO SCH (08:52)
[2016-09-01] MEDS: L ACIDOPHIL/B LACTIS/B LONGUM CAPSULE PO SCH ×2 (08:52→22:50)
[2016-09-01] MEDS: ASPIRIN 81 MG TAB PO SCH (08:52)
[2016-09-01] MEDS: APIXABAN 5 MG TABLET PO SCH ×2 (08:53→22:49)
[2016-09-01] MEDS: METOPROLOL 25 MG TAB PO SCH ×2 (09:00→22:55)
[2016-09-01 15:45] LABS: HAAIG REFLEX REFLEX FILED
[2016-09-01 17:20] LABS: HEPATITIS B CORE ANTIBODY NEGATIVE (NEGATIVE)
[2016-09-01 21:21] VITALS: BP 149/75; RESP 20
[2016-09-01] MEDS: ATORVASTATIN 10 MG TAB PO SCH (22:48)
[2016-09-01] MEDS: TAMSULOSIN (SR) 0.4 MG CAP PO SCH (22:50)
[2016-09-01] MEDS: INSULIN GLARGINE [LANtus] 3 ML PEN SC SCH (23:02)
[2016-09-01] MEDS: morphine 2 MG INJ IV PRN (23:21)
[2016-09-02] VITALS (25 sets, daily range): BP systolic 109–138; BP diastolic 57–133; PULSE 62–82; RESP 11–20
[2016-09-02] MEDS: ACCU-CHEK XX SCH (02:00)
[2016-09-02] MEDS: CIPROFLOXACIN 500 MG TAB NGT SCH (06:52)
[2016-09-02] MEDS: CREON (24K-76K-120K) 1 CAP PO SCH ×3 (08:15→18:09)
[2016-09-02] MEDS: INSULIN ASPART [NOVOLOG] 3 ML PEN SC SCH ×4 (08:15→21:00)
[2016-09-02] MEDS: CALCIUM ACETATE 667 MG CAP PO SCH ×3 (08:15→18:09)
--- NOTE | 2016-09-02 08:20 | PN ---
Date/Time of Note Date/Time of Note DATE: 09/02/16 TIME: 08:17 Assessment/Plan VTE Prophylaxis VTE Prophylaxis Intervention: other Lines/Catheters IV Catheter Type (from [facility], [place]): Peripheral IV Urinary Cath still in place: No (HD MWF) Assessment/Plan Chief Complaint/Hosp Course 1. ESRD on maintenance hemodialysis M W F . He just finished his hemodialysis treatment , 2.3 L of fluid were removed. 2. CAD he has had NSTEMI , he had a coronary angiogram and had 2 stents placed in the LAD. He is now on aspirin and Plavix. 3. IDDM , his blood sugars have been under control. 4. PAD , gangrene of R foot 4th toe . Vascular surgery says that we can wait to do an amputation . 5. cellulitis of R lower leg , improving on antibiotics. 6. postural hypotension . 7. Atrial fib/flutter, he is now on Eliquis . 8. Depression , he seems better . We talked about stopping dialysis . He wants to continue dialysis for now . 9. CVA , R frontal lobe infarct with L hemiparesis and slurred speech , improved . 10. dysphagia . He is able to swallow and says that he is eating more. 11. Discharge planning. His daughter is trying to find an ECF appropriate for him in this area. Outpatient dialysis is being arranged. Problems: Subjective 24 Hr Interval Summary Free Text/Dictation He just finished his hemodialysis treatment. 2.3 L of fluid were removed during the procedure. He tolerated the procedure well. Constitutional: no complaints Respiratory: no complaints Cardiovascular: no complaints Gastrointestinal: no complaints Genitourinary: no complaints Neurologic: focal-weakness Exam/Review of Systems Vital Signs Vitals Vital Signs Date Time Temp Pulse Resp B/P Pulse Ox O2 Delivery O2 Flow Rate FiO2 09/02/16 07:30 82 09/02/16 07:30 18 09/01/16 21:21 98.1 149/75 94 08/31/16 20:11 Room Air Intake and Output 09/01/16 09/01/16 09/02/16 15:00 23:00 07:00 Intake Total 280 ml Output Total 50 ml Balance 230 ml Exam Left BK a, right leg decreased erythema, gangrene of fourth digit. Constitutional: alert, oriented Respiratory: clear to auscultation, normal air movement Cardiovascular: irregular rhythm Gastrointestinal: soft Results Result Diagram: 08/29/16 0050 Results 24 hrs Laboratory Tests Test 09/01/16 08:20 09/01/16 14:45 09/01/16 15:35 09/01/16 17:28 Bedside Glucose 98 138 125 Hepatitis B Surface Antigen NEGATIVE Hepatitis B Core Total Antibody NEGATIVE Hepatitis C Antibody REACTIVE H Test 09/01/16 23:00 Bedside Glucose 125 Medications Medications Current Medications Acetaminophen/ Hydrocodone Bitart (Natalia (5/325)) 1 tab Q6H PRN PO MODERATE PAIN LEVEL 4-6 Last administered on 08/29/16 01:19; Admin Dose 1 TAB; Start 08/14/16 at 14:30 Zolpidem Tartrate (Ambien) 5 mg QHS PRN PO SLEEP; Start 08/14/16 at 14:30 Acetaminophen (Tylenol Tab) 650 mg Q4 PRN PO PAIN AND OR ELEVATED TEMP; Start 08/14/16 at 14:30 Ascorbic Acid (Vitamin C) 500 mg DAILY PO Last administered on 09/01/16 08:52 ; Admin Dose 500 MG; Start 08/15/16 at 09:00 Aspirin (Aspirin) 81 mg DAILY PO Last administered on 09/01/16 08:52; Admin Dose 81 MG; Start 08/15/16 at 09:00 Bisacodyl (Dulcolax Supp) 10 mg DAILY PRN [place] BM; Start 08/14/16 at 14:30 Calcitriol (Rocaltrol) 0.25 mcg DAILY PO Last administered on 09/01/16 08:51; Admin Dose 0.25 MCG; Start 08/15/16 at 09:00 Loratadine (Claritin) 10 mg DAILY PO Last administered on 09/01/16 08:52; Admin Dose 10 MG; Start 08/15/16 at 09:00 Multivit/Ca Carb/ B Cmplx/FA/Prenat (Sarika-Nahomi) 1 tab DAILY PO Last administered on 09/01/16 08:51; Admin Dose 1 TAB; Start 08/15/16 at 09:00 Saccharomyces Boulardii (Florastor) 500 mg BID PO Last administered on 22:55; Admin Dose 500 MG; Start 08/14/16 at 21:00 Tamsulosin HCl (Flomax) 0.4 mg HS PO Last administered on 09/01/16 22:50; Admin Dose 0.4 MG; Start 08/14/16 at 21:00 Miscellaneous Information 1 ea NOTE XX ; Start 08/14/16 at 15:30 Glucose (Glutose) 15 gm Q15M PRN PO DECREASED GLUCOSE; Start 08/14/16 at 15:30 Glucose (Glutose) 22.5 gm Q15M PRN PO DECREASED GLUCOSE; Start 08/14/16 at 15:30 Dextrose (D50w Syringe) 25 ml Q15M PRN IV DECREASED GLUCOSE Last administered on 08/28/16 23:45; Admin Dose 25 ML; Start 08/14/16 at 15:30 Dextrose (D50w Syringe) 50 ml Q15M PRN IV DECREASED GLUCOSE Last administered on 08/17/16 21:14; Admin Dose 50 ML; Start 08/14/16 at 15:30 Glucagon (Glucagen) 1 mg Q15M PRN IM DECREASED GLUCOSE; Start 08/14/16 at 15:30 Glucose (Glutose) 15 gm Q15M PRN BUCCAL DECREASED GLUCOSE; Start 08/14/16 at 15: 30 Diagnostic Test (Pha) (Accu-Chek) 1 ea 02 XX Last administered on 08/26/16 02: 00; Admin Dose 1 EA; Start 08/16/16 at 02:00 Ondansetron HCl (Zofran Inj) 4 mg Q4H PRN IV NAUSEA AND/OR VOMITING Last administered on 08/22/16 09:34; Admin Dose 4 MG; Start 08/16/16 at 09:30 Ondansetron HCl (Zofran Odt) 4 mg Q6H PRN ODT NAUSEA; Start 08/16/16 at 09:30 Lactobacillus Acidophilus (Florajen3 Capsule) 1 each BID PO Last administered on 09/01/16 22:50; Admin Dose 1 EACH; Start 08/17/16 at 09:00 Atorvastatin Calcium (Lipitor) 10 mg QHS PO Last administered on 09/01/16 22: 48; Admin Dose 10 MG; Start 08/17/16 at 21:00 Clopidogrel Bisulfate (plaVIX) 75 mg DAILY PO Last administered on 09/01/16 08 :52; Admin Dose 75 MG; Start 08/18/16 at 09:00 Metoprolol Tartrate (Lopressor) 37.5 mg BID PO Last administered on 09/01/16 22:55; Admin Dose 37.5 MG; Start 08/20/16 at 10:00 Morphine Sulfate (morphine) 1 mg Q2H PRN IV PAIN Last administered on 23:21; Admin Dose 1 MG; Start 08/21/16 at 19:00 Apixaban (Eliquis) 2.5 mg BID PO Last administered on 09/01/16 22:49; Admin Dose 2.5 MG; Start 08/23/16 at 11:30 Ciprofloxacin (Cipro) 500 mg DAILY@06 NGT Last administered on 09/02/16 06:52 ; Admin Dose 500 MG; Start 08/27/16 at 06:00 Doxycycline Hyclate (Vibramycin) 100 mg BID NGT Last administered on 09/01/16 22:49; Admin Dose 100 MG; Start 08/26/16 at 09:00 Insulin Glargine (Lantus) 10 unit QHS SC Last administered on 09/01/16 23:02; Admin Dose 10 UNIT; Start 08/29/16 at 21:00 CELESTE BHATT MD Sep 02, 2016 08:20
[2016-09-02] MEDS: LORATADINE 10 MG TAB PO SCH (09:00)
[2016-09-02] MEDS: ASCORBIC ACID 500 MG TAB PO SCH (09:00)
[2016-09-02] MEDS: CLOPIDOGREL 75 MG TAB PO SCH (09:00)
[2016-09-02] MEDS: METOPROLOL 25 MG TAB PO SCH ×2 (09:00→21:49)
[2016-09-02] MEDS: APIXABAN 5 MG TABLET PO SCH (09:00)
[2016-09-02] MEDS: ASPIRIN 81 MG TAB PO SCH (09:00)
[2016-09-02] MEDS: MULTIVIT/CA CARB/B CMPLX/FA TAB PO SCH (09:00)
[2016-09-02] MEDS: L ACIDOPHIL/B LACTIS/B LONGUM CAPSULE PO SCH ×2 (09:00→21:48)
[2016-09-02] MEDS: SACCHAROMYCES BOULARDII 250 MG CAP PO SCH ×2 (09:00→21:48)
[2016-09-02] MEDS: CALCITRIOL 0.25 MCG CAP PO SCH (09:00)
[2016-09-02 09:29] LABS: ADD SCAN DIFF NO
[2016-09-02 09:30] LABS: BASOPHILS % 0.5 % (0.0-2.0); EOSINOPHILS # 0.2 10^3/ul (0.0-0.5); HEMATOCRIT 34.4 % (42.0-52.0); HEMOGLOBIN 10.9 g/dl (14.0-18.0); LYMPHOCYTES # 1.3 10^3/ul (0.8-2.9); MEAN CORPUSCULAR HEMOGLOBIN 29.6 pg (29.0-33.0); MEAN CORPUSCULAR HGB CONC 31.7 g/dl (32.0-37.0); MEAN CORPUSCULAR VOLUME 93.5 fl (82.0-101.0); MEAN PLATELET VOLUME 10.2 fl (7.4-10.4); MONOCYTE # 0.2 10^3/ul (0.3-0.9); MONOCYTES % 3.8 % (0.0-11.0); NEUTROPHIL # 3.9 10^3/ul (1.6-7.5); PLATELET COUNT 207 10^3/UL (140-415); RED BLOOD COUNT 3.68 10^6/ul (4.70-6.10); WHITE BLOOD COUNT 5.8 10^3/ul (4.8-10.8)
[2016-09-02 09:54] LABS: ALBUMIN 2.9 g/dl (3.3-4.9); CALCIUM 8.1 mg/dl (8.4-10.2); CREATININE 5.34 mg/dl (0.61-1.24); TOTAL PROTEIN 5.8 g/dl (6.1-8.1)
[2016-09-02] MEDS: DOXYCYCLINE 100 MG TAB NGT SCH ×2 (09:59→21:48)
--- NOTE | 2016-09-02 10:31 | PN ---
Date/Time of Note Date/Time of Note DATE: 09/02/16 TIME: 10:30 Assessment/Plan Lines/Catheters IV Catheter Type (from [facility]): Peripheral IV Jimenez in Place (from [facility]): No (HD MWF) Assessment/Plan Chief Complaint/Hosp Course -Bilateral lower extremity atherosclerosis with gangrene: It seems the patient has developed worsening of his fourth toe wound with his heel ulcer. Lower extremity arterial duplex demonstrated monophasic flow in the distal thigh of the graft. At the moment the patient had a IA and likely an acute stroke therefore a CT angiography was obtained that demonstrated adequate flow to the lower leg although concern for possible velocities were noted on Ultrasound. -Had a lengthy conversation with his daughter in regards to his current status and what he can tolerate and risks and benefits of performing a LE angiogram, decision was made to hold off on any further vascular intervention and allow him to improve medically. We further discussed his foot cellulitis and tissue loss/gangrene and at the moment they are stable/dry and treated with antibiotics , therefore recommend continue with conservative management for now. Management has been discussed with our podiatry colleagues -ESRD: It seems the RUE fistula has a new ulcerated cannulation site penetrating into the fistula and profusely bleeding despite adequate pressure being held and suture placement. Considering patient is on ASA, Plavix, and Eliquis will go to OR for possible fistula salvage, revision of the fistula or possible ligation. -Recommend Urgent HD catheter placement in order to not use the fistula at this time -Continue wound care per podiatry -Optimize vascular status (BP meds, diet, nutrition, exercise, sugar control, antiplatelets). -Discussed findings, plan and management with the patient and he understands. -Thank you for allowing us to partake in the care of your patient. Please call with any questions. Problems: Subjective 24 Hr Interval Summary called to bedside secondary to bleeding from a new ulcerated cannulation site this morning. arrived at bedside and placed a U-stitch Exam/Review of Systems Vital Signs Vitals Vital Signs Date Time Temp Pulse Resp B/P Pulse Ox O2 Delivery O2 Flow Rate FiO2 09/02/16 07:30 82 09/02/16 07:30 18 09/01/16 21:21 98.1 149/75 94 08/31/16 20:11 Room Air Intake and Output 09/01/16 09/01/16 09/02/16 15:00 23:00 07:00 Intake Total 280 ml Output Total 50 ml Balance 230 ml Exam Free Text/Dictation GENERAL: Alert and oriented x3 PULMONARY: Clear to auscultation bilaterally CARDIOVASCULAR: S1, S2 present. ABDOMEN: Soft, nontender, nondistended. Bowel sounds positive. EXTREMITIES: Right lower extremity: Palpable femoral pulse, nonpalpable pedal pulse. Motor and sensory intact, 4th toe and heel ulcer with stable dry gangrene. Surgical scars are well healed. Bypass that crosses over to the anterior tibial artery on the anterior espinal is palpable RUE: palpable brachial pulse, motor/sensory intact, capillary refill 3 seconds, fistula with bruit and thrill present and aneurysmal, cannulation site with pulsatile bleeding -suture placed at the bedside for control of bleeding Results Result Diagram: 09/02/16 0545 09/02/16 0545 MARTÍNEZ ROSADO MD Sep 02, 2016 10:31
--- NOTE | 2016-09-02 11:17 | HPN ---
Date/Time of Note Date/Time of Note DATE: 09/02/16 TIME: 11:16 Interval H&P Admission Note Pt. seen H&P reviewed: Systems changes noted below PATIENT STILL BLEEDING DESPITE SUTURE PLACEMENT AND COMPRESSION DRESSING NOT ADEQUATE ENOUGH MARTÍNEZ ROSADO MD Sep 02, 2016 11:17
[2016-09-02] MEDS ORDERED: BUPIVACAINE 0.5% (SDV) 30 ML INJ ONE (11:28)
[2016-09-02] MEDS ORDERED: THROMBIN 5000 UNIT VIAL ONE (11:28)
[2016-09-02] MEDS ORDERED: LIDOCAINE 1% (MPF) 30 ML INJ ONE (11:28)
[2016-09-02] MEDS ORDERED: GELATIN SIZE 100 SPONGE ONE (11:28)
[2016-09-02] MEDS ORDERED: HEPARIN 1000 UNITS/ML 10 ML INJ ONE (11:29)
[2016-09-02] MEDS ORDERED: FENTAnyl 50 MCG/ML VIAL ONE (11:44)
[2016-09-02] MEDS ORDERED: MIDAZOLAM 1 MG/ML 2 ML INJ ONE (11:44)
[2016-09-02] MEDS ORDERED: THROMBIN 5000 UNIT VIAL TOP ONE (12:19)
[2016-09-02] MEDS ORDERED: BUPIVACAINE 0.5% 30 ML VIAL INJ ONE (12:19)
[2016-09-02] MEDS ORDERED: HEPARIN 10,000 UNITS/ML 1 ML INJ CATHETER ONE ×2 (12:19→12:50)
[2016-09-02] MEDS ORDERED: HYDROmorphONE (0.2 MG/ML) 10ML SYG IV PRN ×3 (12:30)
[2016-09-02] MEDS ORDERED: MEPERIDINE 25 MG INJ IV PRN (12:30)
[2016-09-02] MEDS ORDERED: morphine (1 MG/ML) 10ML SYRINGE IV PRN ×3 (12:30)
[2016-09-02] MEDS ORDERED: DIPHENHYDRAMINE 50 MG INJ IV PRN (12:30)
[2016-09-02] MEDS ORDERED: LABETALOL HCL 20MG INJ IV PRN (12:30)
[2016-09-02] MEDS ORDERED: EPHEDrine SULFATE 50 MG/5 ML SYG IV PRN (12:30)
[2016-09-02] MEDS ORDERED: ONDANSETRON 4 MG INJ IV PRN (12:30)
[2016-09-02] MEDS ORDERED: METOCLOPRAMIDE 10 MG INJ ONE (12:42)
[2016-09-02] MEDS ORDERED: ONDANSETRON 4 MG INJ ONE (12:42)
[2016-09-02] MEDS ORDERED: FAMOTIDINE 20 MG INJ ONE (12:42)
[2016-09-02] MEDS ORDERED: CEFAZOLIN 1 GM INJ ONE (12:42)
--- NOTE | 2016-09-02 13:10 | OPR ---
Date/Time of Note Date/Time of Note DATE: 09/02/16 TIME: 13:05 Operative Report Preoperative Diagnosis BLEEDING FISTULA Postoperative Diagnosis BLEEDING FISTULA Operation/Procedure Performed EXPLORATION OF RIGHT BRACHIAL ARTERY LIGATION OF RIGHT UPPER EXTREMITY FISTULA DEBRIDEMENT OF NECROTIC WOUND 1.5 X 1.5CM LEFT FEMORAL VEIN GIGI CATHETER PLACEMENT Surgeon: MARTÍNEZ ROSADO MD Anesthesia: general, other (LOCAL) Estimated Blood Loss: 0 - 10 ml's Specimens WOUND CULTURE Complications: None MARTÍNEZ ROSADO MD Sep 02, 2016 13:09
[2016-09-02] MEDS: ATORVASTATIN 10 MG TAB PO SCH (21:48)
[2016-09-02] MEDS: TAMSULOSIN (SR) 0.4 MG CAP PO SCH (21:48)
[2016-09-02] MEDS: INSULIN GLARGINE [LANtus] 3 ML PEN SC SCH (21:54)
--- NOTE | 2016-09-02 23:24 | QN ---
Documentation Comment POSTOP EVALUATION: Pt resting comfortably some minimal ooze from suture site of the left CFV HD catheter, dressing changed RUE dressing removed and wound is clean and minimal superficial ooze, dry dressing reapplied Palpable brachial pulse, fistula ligated, incisions clean and dry and intact MARTÍNEZ ROSADO MD Sep 02, 2016 23:24
[2016-09-02] MEDS: DEXTROSE 5%-0.45% NACL 1,000 ML IV SCH (23:51)
[2016-09-03] VITALS (13 sets, daily range): BP systolic 138–160; BP diastolic 63–84; PULSE 74–86; RESP 14–20
[2016-09-03] MEDS: ACCU-CHEK XX SCH (01:41)
[2016-09-03] MEDS: CIPROFLOXACIN 500 MG TAB NGT SCH (05:46)
[2016-09-03 06:01] LABS: ADD SCAN DIFF NO
[2016-09-03 06:08] LABS: BASOPHILS % 0.3 % (0.0-2.0); EOSINOPHILS # 0.3 10^3/ul (0.0-0.5); EOSINOPHILS % 3.4 % (0.0-7.0); HEMATOCRIT 31.8 % (42.0-52.0); HEMOGLOBIN 9.7 g/dl (14.0-18.0); LYMPHOCYTES # 1.6 10^3/ul (0.8-2.9); LYMPHOCYTES % 20.4 % (15.0-51.0); MEAN CORPUSCULAR HGB CONC 30.5 g/dl (32.0-37.0); MEAN CORPUSCULAR VOLUME 94.9 fl (82.0-101.0); MEAN PLATELET VOLUME 9.7 fl (7.4-10.4); MONOCYTE # 0.6 10^3/ul (0.3-0.9); MONOCYTES % 7.8 % (0.0-11.0); NEUTROPHIL # 5.3 10^3/ul (1.6-7.5); NEUTROPHILS % 67.8 % (39.0-77.0); PLATELET COUNT 188 10^3/UL (140-415); RED BLOOD COUNT 3.35 10^6/ul (4.70-6.10); WHITE BLOOD COUNT 7.9 10^3/ul (4.8-10.8)
[2016-09-03 06:37] LABS: CALCIUM 7.7 mg/dl (8.4-10.2); CREATININE 5.17 mg/dl (0.61-1.24)
[2016-09-03] MEDS: INSULIN ASPART [NOVOLOG] 3 ML PEN SC SCH ×4 (08:10→22:06)
[2016-09-03] MEDS: CREON (24K-76K-120K) 1 CAP PO SCH ×4 (08:15→17:26)
[2016-09-03] MEDS: CALCIUM ACETATE 667 MG CAP PO SCH ×4 (08:15→17:26)
--- NOTE | 2016-09-03 08:32 | PN ---
Date/Time of Note Date/Time of Note DATE: 09/03/16 TIME: 08:26 Assessment/Plan VTE Prophylaxis VTE Prophylaxis Intervention: contraindicated Lines/Catheters IV Catheter Type (from [facility]): Peripheral IV Urinary Cath still in place: No Assessment/Plan Chief Complaint/Hosp Course 1. ESRD on maintenance hemodialysis M W F . He had dialysis yesterday with 2.3 L of fluid removed and is due for dialysis tomorrow. 2. CAD he has had NSTEMI , he had a coronary angiogram and had 2 stents placed in the LAD. He is now on aspirin and Plavix. 3. IDDM , his blood sugars have been under control. 4. PAD , gangrene of R foot 4th toe . Vascular surgery says that we can wait to do an amputation . 5. cellulitis of R lower leg , improving on antibiotics. 6. postural hypotension . 7. Atrial fib/flutter, he is now on Eliquis . 8. Depression , he seems better . We talked about stopping dialysis . He wants to continue dialysis for now . 9. CVA , R frontal lobe infarct with L hemiparesis and slurred speech , improved . 10. dysphagia . He is able to swallow and says that he is eating more. 11. Discharge planning. His daughter is trying to find an ECF appropriate for him in this area. Outpatient dialysis is being arranged. 12. He had bleeding from his right upper arm AV fistula yesterday after dialysis. He went to surgery and had the AV fistula ligated by Dr. Conteh. He had a left femoral catheter placed by Dr. Conteh. The patient is scheduled to have a right internal jugular permacath placed today by radiology , Dr. Serrano . Problems: Subjective 24 Hr Interval Summary Free Text/Dictation He had a hemodialysis treatment yesterday. After the procedure the dialysis nurse was unable to stop the bleeding from his right upper arm AV fistula. The patient needed to go to surgery and Dr. Conteh had to ligate the right upper arm fistula. Dr. Conteh then placed a left femoral Vas-Cath. The patient is awake and alert at this time. He denies pain. Constitutional: no complaints Eyes: no complaints Respiratory: no complaints Cardiovascular: no complaints Gastrointestinal: no complaints Genitourinary: no complaints Musculoskeletal: no complaints Exam/Review of Systems Vital Signs Vitals Vital Signs Date Time Temp Pulse Resp B/P Pulse Ox O2 Delivery O2 Flow Rate FiO2 09/03/16 08:14 97.6 64 18 142/63 99 09/02/16 20:00 Room Air 09/02/16 14:56 2.0 Intake and Output 09/02/16 09/02/16 09/03/16 15:00 23:00 07:00 Intake Total 500 ml 300 ml Output Total 2520 ml 160 ml 80 ml Balance -2020 ml -160 ml 220 ml Exam He has a left BKA and his right leg has a resolving cellulitis over the anterior espinal and a gangrenous right fourth toe. Constitutional: alert Respiratory: clear to auscultation, normal air movement Cardiovascular: irregular rhythm Gastrointestinal: soft Results Result Diagram: 09/03/16 0550 09/03/16 0550 Results 24 hrs Laboratory Tests Test 09/02/16 17:50 09/02/16 21:47 09/03/16 05:50 09/03/16 08:09 Bedside Glucose 84 115 94 White Blood Count 7.9 # Red Blood Count 3.35 L Hemoglobin 9.7 L Hematocrit 31.8 L Mean Corpuscular Volume 94.9 Mean Corpuscular Hemoglobin 29.0 Mean Corpuscular Hemoglobin Concent 30.5 L Red Cell Distribution Width 16.0 H Platelet Count 188 Mean Platelet Volume 9.7 Neutrophils % 67.8 Lymphocytes % 20.4 Monocytes % 7.8 Eosinophils % 3.4 Basophils % 0.3 Nucleated Red Blood Cells % 0.0 Neutrophils # 5.3 Lymphocytes # 1.6 Monocytes # 0.6 Eosinophils # 0.3 Basophils # 0.0 Nucleated Red Blood Cells # 0.0 Erythrocyte Sedimentation Rate 37 H Sodium Level 139 Potassium Level 4.0 Chloride Level 99 Carbon Dioxide Level 30 Anion Gap 14 Blood Urea Nitrogen 35 H Creatinine 5.17 H Glucose Level 74 Calcium Level 7.7 L Medications Medications Current Medications Acetaminophen/ Hydrocodone Bitart (Haiku (5/325)) 1 tab Q6H PRN PO MODERATE PAIN LEVEL 4-6 Last administered on 08/29/16t 01:19; Admin Dose 1 TAB; Start 08/14/16 at 14:30 Zolpidem Tartrate (Ambien) 5 mg QHS PRN PO SLEEP; Start 08/14/16 at 14:30 Acetaminophen (Tylenol Tab) 650 mg Q4 PRN PO PAIN AND OR ELEVATED TEMP; Start 08/14/16 at 14:30 Ascorbic Acid (Vitamin C) 500 mg DAILY PO Last administered on 09/01/16 08:52 ; Admin Dose 500 MG; Start 08/15/16 at 09:00 Aspirin (Aspirin) 81 mg DAILY PO Last administered on 09/01/16 08:52; Admin Dose 81 MG; Start 08/15/16 at 09:00; Status Future Hold Bisacodyl (Dulcolax Supp) 10 mg DAILY PRN [place] BM; Start 08/14/16 at 14:30 Calcitriol (Rocaltrol) 0.25 mcg DAILY PO Last administered on 09/01/16 08:51; Admin Dose 0.25 MCG; Start 08/15/16 at 09:00 Loratadine (Claritin) 10 mg DAILY PO Last administered on 09/01/16 08:52; Admin Dose 10 MG; Start 08/15/16 at 09:00 Multivit/Ca Carb/ B Cmplx/FA/Prenat (Sarika-Nahomi) 1 tab DAILY PO Last administered on 09/01/16 08:51; Admin Dose 1 TAB; Start 08/15/16 at 09:00 Saccharomyces Boulardii (Florastor) 500 mg BID PO Last administered on 21:48; Admin Dose 500 MG; Start 08/14/16 at 21:00 Tamsulosin HCl (Flomax) 0.4 mg HS PO Last administered on 09/02/16 21:48; Admin Dose 0.4 MG; Start 08/14/16 at 21:00 Miscellaneous Information 1 ea NOTE XX ; Start 08/14/16 at 15:30 Glucose (Glutose) 15 gm Q15M PRN PO DECREASED GLUCOSE; Start 08/14/16 at 15:30 Glucose (Glutose) 22.5 gm Q15M PRN PO DECREASED GLUCOSE; Start 08/14/16 at 15:30 Dextrose (D50w Syringe) 25 ml Q15M PRN IV DECREASED GLUCOSE Last administered on 08/28/16 23:45; Admin Dose 25 ML; Start 08/14/16 at 15:30 Dextrose (D50w Syringe) 50 ml Q15M PRN IV DECREASED GLUCOSE Last administered on 08/17/16 21:14; Admin Dose 50 ML; Start 08/14/16 at 15:30 Glucagon (Glucagen) 1 mg Q15M PRN IM DECREASED GLUCOSE; Start 08/14/16 at 15:30 Glucose (Glutose) 15 gm Q15M PRN BUCCAL DECREASED GLUCOSE; Start 08/14/16 at 15: 30 Diagnostic Test (Pha) (Accu-Chek) 1 ea 02 XX Last administered on 08/26/16 02: 00; Admin Dose 1 EA; Start 08/16/16 at 02:00 Ondansetron HCl (Zofran Inj) 4 mg Q4H PRN IV NAUSEA AND/OR VOMITING Last administered on 08/22/16 09:34; Admin Dose 4 MG; Start 08/16/16 at 09:30 Ondansetron HCl (Zofran Odt) 4 mg Q6H PRN ODT NAUSEA; Start 08/16/16 at 09:30 Lactobacillus Acidophilus (Florajen3 Capsule) 1 each BID PO Last administered on 09/02/16 21:48; Admin Dose 1 EACH; Start 08/17/16 at 09:00 Atorvastatin Calcium (Lipitor) 10 mg QHS PO Last administered on 09/02/16 21: 48; Admin Dose 10 MG; Start 08/17/16 at 21:00 Clopidogrel Bisulfate (plaVIX) 75 mg DAILY PO Last administered on 09/01/16 08 :52; Admin Dose 75 MG; Start 08/18/16 at 09:00; Status Future Hold Metoprolol Tartrate (Lopressor) 37.5 mg BID PO Last administered on 09/02/16 21:49; Admin Dose 37.5 MG; Start 08/20/16 at 10:00 Morphine Sulfate (morphine) 1 mg Q2H PRN IV PAIN Last administered on 23:21; Admin Dose 1 MG; Start 08/21/16 at 19:00 Ciprofloxacin (Cipro) 500 mg DAILY@06 NGT Last administered on 09/02/16 06:52 ; Admin Dose 500 MG; Start 08/27/16 at 06:00 Doxycycline Hyclate (Vibramycin) 100 mg BID NGT Last administered on 09/02/16 21:48; Admin Dose 100 MG; Start 08/26/16 at 09:00 Insulin Glargine 10 unit 10 unit QHS SC Last administered on 09/02/16 21:54; Admin Dose 10 UNIT; Start 08/29/16 at 21:00 Dextrose/Sodium Chloride (D5-1/2ns) 1,000 ml @ 60 mls/hr [id number] IV Last administered on 09/02/16 23:51; Admin Dose 60 MLS/HR; Start 09/03/16 at 00:00 CELESTE BHATT MD Sep 03, 2016 08:31
[2016-09-03] MEDS: SACCHAROMYCES BOULARDII 250 MG CAP PO SCH ×2 (09:00→22:07)
[2016-09-03] MEDS: METOPROLOL 25 MG TAB PO SCH ×2 (09:00→22:08)
[2016-09-03] MEDS: DOXYCYCLINE 100 MG TAB NGT SCH ×2 (09:00→22:07)
[2016-09-03] MEDS: L ACIDOPHIL/B LACTIS/B LONGUM CAPSULE PO SCH ×2 (09:00→22:07)
[2016-09-03] MEDS: LORATADINE 10 MG TAB PO SCH ×2 (09:00→17:27)
[2016-09-03] MEDS: MULTIVIT/CA CARB/B CMPLX/FA TAB PO SCH ×2 (09:00→17:29)
[2016-09-03] MEDS: CALCITRIOL 0.25 MCG CAP PO SCH (09:00)
[2016-09-03] MEDS: ASCORBIC ACID 500 MG TAB PO SCH (09:00)
[2016-09-03 10:56] LABS: INR 1.36; PROTIME 16.8 Sec (12.2-14.2); PT RATIO 1.3
[2016-09-03 10:57] LABS: PARTIAL THROMBOPLASTIN TIME 37.7 Sec (25.0-35.0)
[2016-09-03] MEDS ORDERED: HEPARIN 1000 UNITS/ML 10 ML INJ ONE (11:46)
[2016-09-03] MEDS ORDERED: MIDAZOLAM 1 MG/ML 2 ML INJ ONE (11:46)
[2016-09-03] MEDS ORDERED: SOD CHLORIDE 0.9% 500 ML ONE (11:46)
[2016-09-03] MEDS ORDERED: FENTAnyl 50 MCG/ML VIAL ONE (11:46)
[2016-09-03] MEDS ORDERED: LIDOCAINE 1% (MDV) 20 ML INJ ONE (11:46)
[2016-09-03] MEDS ORDERED: CEFAZOLIN 1 GM/50 ML (PMX) 50 ML IVPB ONE (11:46)
--- NOTE | 2016-09-03 12:28 | PN ---
Date/Time of Note Date/Time of Note DATE: 09/03/16 TIME: 12:28 Assessment/Plan Lines/Catheters IV Catheter Type (from [facility]): Peripheral IV Jimenez in Place (from [facility]): No Assessment/Plan Chief Complaint/Hosp Course -Bilateral lower extremity atherosclerosis with gangrene: It seems the patient has developed worsening of his fourth toe wound with his heel ulcer. Lower extremity arterial duplex demonstrated monophasic flow in the distal thigh of the graft. At the moment the patient had a [place] and likely an acute stroke therefore a CT angiography was obtained that demonstrated adequate flow to the lower leg although concern for possible velocities were noted on Ultrasound. -Had a lengthy conversation with his daughter in regards to his current status and what he can tolerate and risks and benefits of performing a LE angiogram, decision was made to hold off on any further vascular intervention and allow him to improve medically. We further discussed his foot cellulitis and tissue loss/gangrene and at the moment they are stable/dry and treated with antibiotics , therefore recommend continue with conservative management for now. Management has been discussed with our podiatry colleagues -ESRD: S/P RUE fistula ligation and control of bleeding -Scheduled for perm catheter placement, will evaluate for eventual fistula creation as outpt -Continue wound care per podiatry -Optimize vascular status (BP meds, diet, nutrition, exercise, sugar control, antiplatelets). -Discussed findings, plan and management with the patient and he understands. -Thank you for allowing us to partake in the care of your patient. Please call with any questions. Problems: Subjective 24 Hr Interval Summary no new vascular events overnight Exam/Review of Systems Vital Signs Vitals Vital Signs Date Time Temp Pulse Resp B/P Pulse Ox O2 Delivery O2 Flow Rate FiO2 09/03/16 08:14 97.6 64 18 142/63 99 09/02/16 20:00 Room Air 09/02/16 14:56 2.0 Intake and Output 09/02/16 09/02/16 09/03/16 15:00 23:00 07:00 Intake Total 500 ml 300 ml Output Total 2520 ml 160 ml 80 ml Balance -2020 ml -160 ml 220 ml Exam Free Text/Dictation GENERAL: Alert and oriented x3 PULMONARY: Clear to auscultation bilaterally CARDIOVASCULAR: S1, S2 present. ABDOMEN: Soft, nontender, nondistended. Bowel sounds positive. EXTREMITIES: -Right lower extremity: Palpable femoral pulse, nonpalpable pedal pulse. Motor and sensory intact, 4th toe and heel ulcer with stable dry gangrene. Surgical scars are well healed. Bypass that crosses over to the anterior tibial artery on the anterior espinal is palpable -LLE: Groin catheter intact and dry -RUE: palpable brachial pulse, motor/sensory intact, capillary refill 3 seconds , Fistula ligated, incision sites C/D/I, wound in the mid upper arm clean and dressing removed Results Result Diagram: 09/03/16 0550 09/03/16 0550 MARTÍNEZ ROSADO MD Sep 03, 2016 12:28
--- NOTE | 2016-09-03 14:05 | RADRPT ---
PROCEDURE: Ultrasound guidance for placement of needle in left internal jugular vein. CLINICAL INDICATION: Venous access. TECHNIQUE: Prior to the procedure, informed consent was obtained. Risks including bleeding, infection, and pneu mothorax were explained to the patient. The patient understood and was willing to proceed. A procedu ral pause was performed. The patient's name, date of , and procedure to be performed were verif ied. The central line was inserted with all elements of maximal sterile barrier technique. All of th e following were used: head covering, facial mask, sterile gown, sterile gloves, a large sterile she et, hand hygiene, and 2% chlorhexidine for cutaneous antisepsis. The left neck and anterior/superi or chest wall was prepped and draped in usual sterile fashion. Limited sonography of the left neck was then performed. Noted is a patent left internal jugular vein . Ultrasound images were recorded and stored in the patient's medical record. Following the local injection of Xylocaine, the left internal jugular vein was punctured under sonog raphic guidance with a 20-gauge needle through which a 0.018 inch floppy tip guidewire was advanced into the superior vena cava. The patient tolerated the procedure well. The remainder of the proced ure was performed and dictated under separate cover. COMPARISON: None. FINDINGS: The ultrasound images demonstrate a patent left internal jugular vein. The subsequent images demons trate the needle entering the left internal jugular vein. IMPRESSION: 1. Ultrasound guidance for a needle placement in left internal jugular vein. RPTAT: QQ .Teo Serrano MD, Date Time Electronically viewed and signed by .Teo Serrano MD, on 09/03/2016 14:05 .R/
--- NOTE | 2016-09-03 15:25 | RADRPT ---
PROCEDURE: PLACEMENT OF LEFT INTERNAL JUGULAR VENOUS TUNNELED DIALYSIS CATHETER. CLINICAL INDICATION: Renal failure. TECHNIQUE: Prior to the procedure, informed consent was obtained. Risks including bleeding, infection, and pneu mothorax were explained to the patient. The patient understood and was willing to proceed. A procedu ral pause was performed. The patient's name, date of , and procedure to be performed were verif ied. The left neck and anterior/superior chest wall was prepped and draped in usual sterile fashion. The central line was inserted with all elements of maximal sterile barrier technique. All of the fol lowing were used: head covering, facial mask, sterile gown, sterile gloves, a large sterile sheet, h and hygiene, and 2% chlorhexidine for cutaneous antisepsis. Limited sonography of the left neck was then performed. Noted is a patent left internal jugular vein . Following the local injection of Xylocaine, the left internal jugular vein was punctured under sonog raphic guidance with a 20-gauge needle through which a 0.018 inch floppy tip guidewire was advanced into the superior vena cava. The tract was dilated to 5 [place] and the wire was then replaced with a 0.035 in Amplatz guidewire. A tunnel was then created from the anterior lateral aspect of the supe rior left chest wall to the puncture site in the neck and the catheter was pulled through the tract. Serial dilatation was then performed and a 16 [place] peel away sheath was introduced. The 14.5 [place] AngioMobile Safe [place] BioFlo DuraMax dialysis catheter was advanced through the 16 [place] pe el-away sheath. The tip of the catheter was confirmed in position within the right atrium. The peel- away sheath was removed. The 2 ports were each flushed with 2.5 ml of 1:1000 heparin. The catheter was secured to the skin w ith 2-0 silk. The wound in the neck was closed with 4-0 Vicryl suture using subcuticular running te chnique. The site was dressed. The patient tolerated the procedure well. COMPARISON: None. FINDINGS: Final images demonstrate the tip of the catheter in the upper right atrium. A total of 0.5 minutes of fluoroscopy time was used. IMPRESSION: 1. Percutaneous insertion of left internal jugular dialysis tunneled dialysis catheter under fluoros copic and sonographic guidance. RPTAT: QQ .Teo Serrano MD, MD Date Time Electronically viewed and signed by .Teo Serrano MD, MD on 09/03/2016 15:25 .R/
[2016-09-03] MEDS: DEXTROSE 5%-0.45% NACL 1,000 ML IV SCH (18:14)
[2016-09-03] MEDS: TAMSULOSIN (SR) 0.4 MG CAP PO SCH (22:06)
[2016-09-03] MEDS: ATORVASTATIN 10 MG TAB PO SCH (22:07)
[2016-09-03] MEDS: INSULIN GLARGINE [LANtus] 3 ML PEN SC SCH (22:13)
[2016-09-03] MEDS: HYDROCODONE/APAP (5/325) TAB PO PRN (23:21)
[2016-09-04] VITALS (9 sets, daily range): BP systolic 112–132; BP diastolic 50–68; PULSE 61–66; RESP 18–20
[2016-09-04] MEDS: ACCU-CHEK XX SCH (02:00)
[2016-09-04] MEDS: CIPROFLOXACIN 500 MG TAB NGT SCH (05:37)
--- NOTE | 2016-09-04 08:39 | CONS ---
Date/Time of Note Date/Time of Note DATE: 09/04/16 TIME: 08:34 Assessment/Plan Assessment/Plan Additional Assessment/Plan 70 yo male with multiple medial problems including DM, ESRD, PAD, CAD and CVA with right foot dry and stable 4th digit gangrene and stable heel ulcer. No acute signs of infection. No need for emergent surgical intervention at this time. Patient is pending transition to nursing facility. Daily dressing changes of right 4th digit and heel ulcer with betadine. Patient needs to follow up at [facility] upon discharge. Continuing with antibiotics per ID recommendations. Appreciate medicine, vascular, cardiac and ID help in managing this patient. Please contact me for any further questions. Consultation Date/Type/Reason Admit Date/Time Aug 14, 2016 at 14:49 Initial Consult Date 08/15/16 Type of Consultation: ID Referring Provider: CELESTE BHATT MD 24 HR Interval Summary Free Text/Dictation Patient seen at bedside this morning. He was having his dialysis. No acute issues with his right foot or leg. Exam/Review of Systems Vital Signs Vitals Vital Signs Date Time Temp Pulse Resp B/P Pulse Ox O2 Delivery O2 Flow Rate FiO2 09/04/16 08:03 97.4 67 18 114/50 98 09/03/16 15:12 Nasal Cannula 09/03/16 13:30 4.0 Intake and Output 09/03/16 09/03/16 09/04/16 15:00 23:00 07:00 Intake Total 460 ml 460 ml 1180 ml Output Total 100 ml 3625 ml Balance 460 ml 360 ml -2445 ml Exam Right 4th digit dry and stable gangrene. Right heel ulcer dry and stable. Resolved cellulitis. Results Result Diagram: 09/03/16 0550 09/03/16 0550 Results 24 hrs Laboratory Tests Test 09/03/16 10:00 09/03/16 11:32 09/03/16 16:22 09/03/16 17:58 Prothrombin Time 16.8 H Prothrombin Time Ratio 1.3 INR International Normalized Ratio 1.36 Activated Partial Thromboplast Time 37.7 H Bedside Glucose 87 92 109 Test 09/03/16 22:04 09/04/16 08:18 Bedside Glucose 109 167 Medications Medications Current Medications Acetaminophen/ Hydrocodone Bitart ([place] (5/325)) 1 tab Q6H PRN PO MODERATE PAIN LEVEL 4-6 Last administered on 09/03/16 23:21; Admin Dose 1 TAB; Start 08/14/16 at 14:30 Zolpidem Tartrate (Ambien) 5 mg QHS PRN PO SLEEP; Start 08/14/16 at 14:30 Acetaminophen (Tylenol Tab) 650 mg Q4 PRN PO PAIN AND OR ELEVATED TEMP; Start 08/14/16 at 14:30 Ascorbic Acid (Vitamin C) 500 mg DAILY PO Last administered on 09/01/16 08:52 ; Admin Dose 500 MG; Start 08/15/16 at 09:00 Aspirin (Aspirin) 81 mg DAILY PO Last administered on 09/01/16 08:52; Admin Dose 81 MG; Start 08/15/16 at 09:00; Status Future Hold Bisacodyl (Dulcolax Supp) 10 mg DAILY PRN [place] BM; Start 08/14/16 at 14:30 Calcitriol (Rocaltrol) 0.25 mcg DAILY PO Last administered on 09/01/16 08:51; Admin Dose 0.25 MCG; Start 08/15/16 at 09:00 Loratadine (Claritin) 10 mg DAILY PO Last administered on 09/03/16 17:27; Admin Dose 10 MG; Start 08/15/16 at 09:00 Multivit/Ca Carb/ B Cmplx/FA/Prenat (Sarika-Nahomi) 1 tab DAILY PO Last administered on 09/03/16 17:29; Admin Dose 1 TAB; Start 08/15/16 at 09:00 Saccharomyces Boulardii (Florastor) 500 mg BID PO Last administered on 22:07; Admin Dose 500 MG; Start 08/14/16 at 21:00 Tamsulosin HCl (Flomax) 0.4 mg HS PO Last administered on 09/03/16 22:06; Admin Dose 0.4 MG; Start 08/14/16 at 21:00 Miscellaneous Information 1 ea NOTE XX ; Start 08/14/16 at 15:30 Glucose (Glutose) 15 gm Q15M PRN PO DECREASED GLUCOSE; Start 08/14/16 at 15:30 Glucose (Glutose) 22.5 gm Q15M PRN PO DECREASED GLUCOSE; Start 08/14/16 at 15:30 Dextrose (D50w Syringe) 25 ml Q15M PRN IV DECREASED GLUCOSE Last administered on 08/28/16 23:45; Admin Dose 25 ML; Start 08/14/16 at 15:30 Dextrose (D50w Syringe) 50 ml Q15M PRN IV DECREASED GLUCOSE Last administered on 08/17/16 21:14; Admin Dose 50 ML; Start 08/14/16 at 15:30 Glucagon (Glucagen) 1 mg Q15M PRN IM DECREASED GLUCOSE; Start 08/14/16 at 15:30 Glucose (Glutose) 15 gm Q15M PRN BUCCAL DECREASED GLUCOSE; Start 08/14/16 at 15: 30 Diagnostic Test (Pha) (Accu-Chek) 1 ea 02 XX Last administered on 08/26/16 02: 00; Admin Dose 1 EA; Start 08/16/16 at 02:00 Ondansetron HCl (Zofran Inj) 4 mg Q4H PRN IV NAUSEA AND/OR VOMITING Last administered on 08/22/16 09:34; Admin Dose 4 MG; Start 08/16/16 at 09:30 Ondansetron HCl (Zofran Odt) 4 mg Q6H PRN ODT NAUSEA; Start 08/16/16 at 09:30 Lactobacillus Acidophilus (Florajen3 Capsule) 1 each BID PO Last administered on 09/03/16 22:07; Admin Dose 1 EACH; Start 08/17/16 at 09:00 Atorvastatin Calcium (Lipitor) 10 mg QHS PO Last administered on 09/03/16 22: 07; Admin Dose 10 MG; Start 08/17/16 at 21:00 Clopidogrel Bisulfate (plaVIX) 75 mg DAILY PO Last administered on 09/01/16 08 :52; Admin Dose 75 MG; Start 08/18/16 at 09:00; Status Future Hold Metoprolol Tartrate (Lopressor) 37.5 mg BID PO Last administered on 09/03/16 22:08; Admin Dose 37.5 MG; Start 08/20/16 at 10:00 Morphine Sulfate (morphine) 1 mg Q2H PRN IV PAIN Last administered on 23:21; Admin Dose 1 MG; Start 08/21/16 at 19:00 Ciprofloxacin (Cipro) 500 mg DAILY@06 NGT Last administered on 09/04/16 05:37 ; Admin Dose 500 MG; Start 08/27/16 at 06:00 Doxycycline Hyclate (Vibramycin) 100 mg BID NGT Last administered on 09/03/16 22:07; Admin Dose 100 MG; Start 08/26/16 at 09:00 Insulin Glargine 10 unit 10 unit QHS SC Last administered on 09/03/16 22:13; Admin Dose 10 UNIT; Start 08/29/16 at 21:00 Dextrose/Sodium Chloride (D5-1/2ns) 1,000 ml @ 60 mls/hr [id number] IV Last administered on 09/03/16 18:14; Admin Dose 60 MLS/HR; Start 09/03/16 at 00:00 CORIE ROSA DPM Sep 04, 2016 08:39
--- NOTE | 2016-09-04 09:01 | PN ---
Date/Time of Note Date/Time of Note DATE: 09/04/16 TIME: 08:55 Assessment/Plan VTE Prophylaxis VTE Prophylaxis Intervention: other Lines/Catheters IV Catheter Type (from [facility] Permacath Urinary Cath still in place: No Assessment/Plan Chief Complaint/Hosp Course 1. ESRD on maintenance hemodialysis [facility] . He had dialysis this morning. 2. CAD he has had NSTEMI , he had a coronary angiogram and had 2 stents placed in the LAD. aspirin and Plavix will be restarted today.. 3. IDDM , his blood sugars have been under control. 4. PAD , gangrene of R foot 4th toe . Vascular surgery says that we can wait to do an amputation . 5. cellulitis of R lower leg , improving on antibiotics. 6. postural hypotension . 7. Atrial fib/flutter, Eliquis will be restarted today.. 8. Depression , he seems better . We talked about stopping dialysis . He wants to continue dialysis for now . 9. CVA , R frontal lobe infarct with L hemiparesis and slurred speech , improved . 10. dysphagia . He is able to swallow and says that he is eating more. 11. Discharge planning. His daughter is trying to find an ECF appropriate for him in this area. Outpatient dialysis is being arranged. 12. He is 1 day postop a left internal jugular permacath placement. The left femoral Matt catheter was removed. He has no obvious bleeding. Problems: Subjective 24 Hr Interval Summary Free Text/Dictation He is now 1 day postop placement of a left internal jugular permacath. He just finished a hemodialysis treatment. He had a left femoral Matt catheter removed by the dialysis nurse. He is awake and alert. He is going to try eating this morning . Constitutional: no complaints Respiratory: no complaints Cardiovascular: no complaints Gastrointestinal: no complaints Genitourinary: no complaints Neurologic: focal-weakness Exam/Review of Systems Vital Signs Vitals Vital Signs Date Time Temp Pulse Resp B/P Pulse Ox O2 Delivery O2 Flow Rate FiO2 09/04/16 08:03 97.4 67 18 114/50 98 09/03/16 15:12 Nasal Cannula 09/03/16 13:30 4.0 Intake and Output 09/03/16 09/03/16 09/04/16 15:00 23:00 07:00 Intake Total 460 ml 460 ml 1180 ml Output Total 100 ml 3625 ml Balance 460 ml 360 ml -2445 ml Exam He has a left leg BKA and a right leg cellulitis with gangrenous fourth toe. He is on antibiotics. Constitutional: alert, frail, oriented Respiratory: clear to auscultation, normal air movement Cardiovascular: regular rate and rhythm Gastrointestinal: soft Results Result Diagram: 09/03/16 0550 09/03/16 0550 Results 24 hrs Laboratory Tests Test 09/03/16 10:00 09/03/16 11:32 09/03/16 16:22 09/03/16 17:58 Prothrombin Time 16.8 H Prothrombin Time Ratio 1.3 INR International Normalized Ratio 1.36 Activated Partial Thromboplast Time 37.7 H Bedside Glucose 87 92 109 Test 09/03/16 22:04 09/04/16 08:18 Bedside Glucose 109 167 Medications Medications Current Medications Acetaminophen/ Hydrocodone Bitart ([place] (5/325)) 1 tab Q6H PRN PO MODERATE PAIN LEVEL 4-6 Last administered on 09/03/16 23:21; Admin Dose 1 TAB; Start 08/14/16 at 14:30 Zolpidem Tartrate (Ambien) 5 mg QHS PRN PO SLEEP; Start 08/14/16 at 14:30 Acetaminophen (Tylenol Tab) 650 mg Q4 PRN PO PAIN AND OR ELEVATED TEMP; Start 08/14/16 at 14:30 Ascorbic Acid (Vitamin C) 500 mg DAILY PO Last administered on 09/01/16 08:52 ; Admin Dose 500 MG; Start 08/15/16 at 09:00 Aspirin (Aspirin) 81 mg DAILY PO Last administered on 09/01/16 08:52; Admin Dose 81 MG; Start 08/15/16 at 09:00; Status Future Hold Bisacodyl (Dulcolax Supp) 10 mg DAILY PRN [place] BM; Start 08/14/16 at 14:30 Calcitriol (Rocaltrol) 0.25 mcg DAILY PO Last administered on 09/01/16 08:51; Admin Dose 0.25 MCG; Start 08/15/16 at 09:00 Loratadine (Claritin) 10 mg DAILY PO Last administered on 09/03/16 17:27; Admin Dose 10 MG; Start 08/15/16 at 09:00 Multivit/Ca Carb/ B Cmplx/FA/Prenat (Sarika-Nahomi) 1 tab DAILY PO Last administered on 09/03/16 17:29; Admin Dose 1 TAB; Start 08/15/16 at 09:00 Saccharomyces Boulardii (Florastor) 500 mg BID PO Last administered on 22:07; Admin Dose 500 MG; Start 08/14/16 at 21:00 Tamsulosin HCl (Flomax) 0.4 mg HS PO Last administered on 09/03/16 22:06; Admin Dose 0.4 MG; Start 08/14/16 at 21:00 Miscellaneous Information 1 ea NOTE XX ; Start 08/14/16 at 15:30 Glucose (Glutose) 15 gm Q15M PRN PO DECREASED GLUCOSE; Start 08/14/16 at 15:30 Glucose (Glutose) 22.5 gm Q15M PRN PO DECREASED GLUCOSE; Start 08/14/16 at 15:30 Dextrose (D50w Syringe) 25 ml Q15M PRN IV DECREASED GLUCOSE Last administered on 08/28/16 23:45; Admin Dose 25 ML; Start 08/14/16 at 15:30 Dextrose (D50w Syringe) 50 ml Q15M PRN IV DECREASED GLUCOSE Last administered on 08/17/16 21:14; Admin Dose 50 ML; Start 08/14/16 at 15:30 Glucagon (Glucagen) 1 mg Q15M PRN IM DECREASED GLUCOSE; Start 08/14/16 at 15:30 Glucose (Glutose) 15 gm Q15M PRN BUCCAL DECREASED GLUCOSE; Start 08/14/16 at 15: 30 Diagnostic Test (Pha) (Accu-Chek) 1 ea 02 XX Last administered on 08/26/16 02: 00; Admin Dose 1 EA; Start 08/16/16 at 02:00 Ondansetron HCl (Zofran Inj) 4 mg Q4H PRN IV NAUSEA AND/OR VOMITING Last administered on 08/22/16 09:34; Admin Dose 4 MG; Start 08/16/16 at 09:30 Ondansetron HCl (Zofran Odt) 4 mg Q6H PRN ODT NAUSEA; Start 08/16/16 at 09:30 Lactobacillus Acidophilus (Florajen3 Capsule) 1 each BID PO Last administered on 09/03/16 22:07; Admin Dose 1 EACH; Start 08/17/16 at 09:00 Atorvastatin Calcium (Lipitor) 10 mg QHS PO Last administered on 09/03/16 22: 07; Admin Dose 10 MG; Start 08/17/16 at 21:00 Clopidogrel Bisulfate (plaVIX) 75 mg DAILY PO Last administered on 09/01/16 08 :52; Admin Dose 75 MG; Start 08/18/16 at 09:00; Status Future Hold Metoprolol Tartrate (Lopressor) 37.5 mg BID PO Last administered on 09/03/16 22:08; Admin Dose 37.5 MG; Start 08/20/16 at 10:00 Morphine Sulfate (morphine) 1 mg Q2H PRN IV PAIN Last administered on 23:21; Admin Dose 1 MG; Start 08/21/16 at 19:00 Ciprofloxacin (Cipro) 500 mg DAILY@06 NGT Last administered on 09/04/16 05:37 ; Admin Dose 500 MG; Start 08/27/16 at 06:00 Doxycycline Hyclate (Vibramycin) 100 mg BID NGT Last administered on 09/03/16 22:07; Admin Dose 100 MG; Start 08/26/16 at 09:00 Insulin Glargine 10 unit 10 unit QHS SC Last administered on 09/03/16 22:13; Admin Dose 10 UNIT; Start 08/29/16 at 21:00 Dextrose/Sodium Chloride (D5-1/2ns) 1,000 ml @ 60 mls/hr [id number] IV Last administered on 09/03/16 18:14; Admin Dose 60 MLS/HR; Start 09/03/16 at 00:00 CELESTE BHATT MD Sep 04, 2016 09:01
[2016-09-04] MEDS: DEXTROSE 5%-0.45% NACL 1,000 ML IV SCH (09:20)
[2016-09-04] MEDS ORDERED: APIXABAN 5 MG TABLET PO SCH (09:30)
[2016-09-04] MEDS: INSULIN ASPART [NOVOLOG] 3 ML PEN SC SCH ×4 (10:21→22:00)
[2016-09-04] MEDS: CREON (24K-76K-120K) 1 CAP PO SCH ×3 (10:26→18:59)
[2016-09-04] MEDS: L ACIDOPHIL/B LACTIS/B LONGUM CAPSULE PO SCH ×2 (10:26→21:57)
[2016-09-04] MEDS: DOXYCYCLINE 100 MG TAB NGT SCH ×2 (10:27→21:56)
[2016-09-04] MEDS: METOPROLOL 25 MG TAB PO SCH ×2 (10:28→21:58)
[2016-09-04] MEDS: SACCHAROMYCES BOULARDII 250 MG CAP PO SCH ×2 (10:28→21:58)
[2016-09-04] MEDS: CALCITRIOL 0.25 MCG CAP PO SCH (10:29)
[2016-09-04] MEDS: CALCIUM ACETATE 667 MG CAP PO SCH ×3 (10:29→18:59)
[2016-09-04] MEDS: MULTIVIT/CA CARB/B CMPLX/FA TAB PO SCH (10:29)
[2016-09-04] MEDS: ASCORBIC ACID 500 MG TAB PO SCH (10:30)
[2016-09-04] MEDS: LORATADINE 10 MG TAB PO SCH (10:30)
[2016-09-04] MEDS: ASPIRIN 81 MG TAB PO SCH (11:07)
[2016-09-04] MEDS: CLOPIDOGREL 75 MG TAB PO SCH (11:07)
[2016-09-04] MEDS: TAMSULOSIN (SR) 0.4 MG CAP PO SCH (21:57)
[2016-09-04] MEDS: APIXABAN 5 MG TABLET PO SCH (21:57)
[2016-09-04] MEDS: ATORVASTATIN 10 MG TAB PO SCH (21:58)
[2016-09-04] MEDS: INSULIN GLARGINE [LANtus] 3 ML PEN SC SCH (22:03)
[2016-09-05] MEDS: ACCU-CHEK XX SCH (02:00)
[2016-09-05] MEDS: CIPROFLOXACIN 500 MG TAB NGT SCH (05:52)
[2016-09-05 07:02] LABS: BASOPHILS % 0.4 % (0.0-2.0); EOSINOPHILS # 0.3 10^3/ul (0.0-0.5); HEMATOCRIT 31.9 % (42.0-52.0); HEMOGLOBIN 9.6 g/dl (14.0-18.0); LYMPHOCYTES # 1.5 10^3/ul (0.8-2.9); LYMPHOCYTES % 19.4 % (15.0-51.0); MEAN CORPUSCULAR HEMOGLOBIN 28.8 pg (29.0-33.0); MEAN CORPUSCULAR HGB CONC 30.1 g/dl (32.0-37.0); MEAN CORPUSCULAR VOLUME 95.8 fl (82.0-101.0); MEAN PLATELET VOLUME 9.9 fl (7.4-10.4); MONOCYTE # 0.7 10^3/ul (0.3-0.9); MONOCYTES % 9.4 % (0.0-11.0); NEUTROPHILS % 66.5 % (39.0-77.0); PLATELET COUNT 165 10^3/UL (140-415); RED BLOOD COUNT 3.33 10^6/ul (4.70-6.10); RED CELL DISTRIBUTION WIDTH 16.3 % (11.5-14.5); WHITE BLOOD COUNT 7.5 10^3/ul (4.8-10.8)
[2016-09-05 07:36] LABS: ALBUMIN 2.9 g/dl (3.3-4.9); ALBUMIN/GLOBULIN RATIO 1.03; CALCIUM 8.3 mg/dl (8.4-10.2); CREATININE 4.67 mg/dl (0.61-1.24); TOTAL PROTEIN 5.7 g/dl (6.1-8.1)
[2016-09-05] MEDS: INSULIN ASPART [NOVOLOG] 3 ML PEN SC SCH ×4 (08:15→21:00)
[2016-09-05 08:22] VITALS: BP 146/69; RESP 20
[2016-09-05] MEDS: CALCITRIOL 0.25 MCG CAP PO SCH (08:56)
[2016-09-05] MEDS: DOXYCYCLINE 100 MG TAB NGT SCH ×2 (08:56→21:15)
[2016-09-05] MEDS: CALCIUM ACETATE 667 MG CAP PO SCH ×3 (08:56→17:27)
[2016-09-05] MEDS: CREON (24K-76K-120K) 1 CAP PO SCH ×3 (08:57→17:27)
[2016-09-05] MEDS: ASPIRIN 81 MG TAB PO SCH (08:57)
[2016-09-05] MEDS: L ACIDOPHIL/B LACTIS/B LONGUM CAPSULE PO SCH ×2 (08:57→21:17)
[2016-09-05] MEDS: CLOPIDOGREL 75 MG TAB PO SCH (08:57)
[2016-09-05] MEDS: SACCHAROMYCES BOULARDII 250 MG CAP PO SCH ×2 (08:57→21:16)
[2016-09-05] MEDS: APIXABAN 5 MG TABLET PO SCH ×2 (08:57→21:15)
[2016-09-05] MEDS: MULTIVIT/CA CARB/B CMPLX/FA TAB PO SCH (08:57)
[2016-09-05] MEDS: LORATADINE 10 MG TAB PO SCH (08:57)
[2016-09-05] MEDS: ASCORBIC ACID 500 MG TAB PO SCH (08:57)
[2016-09-05] MEDS: METOPROLOL 25 MG TAB PO SCH ×2 (08:58→21:17)
--- NOTE | 2016-09-05 10:59 | PN ---
Date/Time of Note Date/Time of Note DATE: 09/05/16 TIME: 10:54 Assessment/Plan VTE Prophylaxis VTE Prophylaxis Intervention: other Lines/Catheters IV Catheter Type (from Nrs): PERMACATH Urinary Cath still in place: No Assessment/Plan Assessment/Plan 1. CKD, next HD this wednesday 2. Peripheral vasc dz stable 3. CAD, stable Subjective 24 Hr Interval Summary Respiratory: No cough, No shortness of breath Cardiovascular: No chest pain Gastrointestinal: no complaints Genitourinary: no complaints Exam/Review of Systems Vital Signs Vitals Vital Signs Date Time Temp Pulse Resp B/P Pulse Ox O2 Delivery O2 Flow Rate FiO2 09/05/16 08:22 98.0 67 20 146/69 96 09/03/16 15:12 Nasal Cannula 09/03/16 13:30 4.0 Intake and Output 09/04/16 09/04/16 09/05/16 15:00 23:00 07:00 Intake Total 400 ml 240 ml Output Total 100 ml Balance 400 ml 140 ml Exam Neck: No jvd Respiratory: clear to auscultation Cardiovascular: regular rate and rhythm Gastrointestinal: soft, No tender Extremities: No edema Results Result Diagram: 09/05/16 0555 09/05/16 0555 Results 24 hrs Laboratory Tests Test 09/04/16 12:17 09/04/16 19:12 09/04/16 21:54 09/05/16 02:35 Bedside Glucose 173 148 199 126 Test 09/05/16 05:55 09/05/16 07:55 White Blood Count 7.5 Red Blood Count 3.33 L Hemoglobin 9.6 L Hematocrit 31.9 L Mean Corpuscular Volume 95.8 Mean Corpuscular Hemoglobin 28.8 L Mean Corpuscular Hemoglobin Concent 30.1 L Red Cell Distribution Width 16.3 H Platelet Count 165 Mean Platelet Volume 9.9 Neutrophils % 66.5 Lymphocytes % 19.4 Monocytes % 9.4 Eosinophils % 4.0 Basophils % 0.4 Nucleated Red Blood Cells % 0.0 Neutrophils # 5.0 Lymphocytes # 1.5 Monocytes # 0.7 Eosinophils # 0.3 Basophils # 0.0 Nucleated Red Blood Cells # 0.0 Sodium Level 143 Potassium Level 4.0 Chloride Level 101 Carbon Dioxide Level 27 Anion Gap 19 H Blood Urea Nitrogen 27 H Creatinine 4.67 H Glucose Level 105 Calcium Level 8.3 L Total Bilirubin 0.0 L Direct Bilirubin 0.00 Indirect Bilirubin 0.0 Aspartate Amino Transf (AST/SGOT) 29 Alanine Aminotransferase (ALT/SGPT) 19 Alkaline Phosphatase 160 H Total Protein 5.7 L Albumin 2.9 L Globulin 2.80 Albumin/Globulin Ratio 1.03 Bedside Glucose 128 Medications Medications Current Medications Acetaminophen/ Hydrocodone Bitart ([place] (5/325)) 1 tab Q6H PRN PO MODERATE PAIN LEVEL 4-6 Last administered on 09/03/16 23:21; Admin Dose 1 TAB; Start 08/14/16 at 14:30 Zolpidem Tartrate (Ambien) 5 mg QHS PRN PO SLEEP; Start 08/14/16 at 14:30 Acetaminophen (Tylenol Tab) 650 mg Q4 PRN PO PAIN AND OR ELEVATED TEMP; Start 08/14/16 at 14:30 Ascorbic Acid (Vitamin C) 500 mg DAILY PO Last administered on 09/05/16 08:57; Admin Dose 500 MG; Start 08/15/16 at 09:00 Bisacodyl (Dulcolax Supp) 10 mg DAILY PRN [place] BM; Start 08/14/16 at 14:30 Calcitriol (Rocaltrol) 0.25 mcg DAILY PO Last administered on 09/05/16 08:56; Admin Dose 0.25 MCG; Start 08/15/16 at 09:00 Loratadine (Claritin) 10 mg DAILY PO Last administered on 09/05/16 08:57; Admin Dose 10 MG; Start 08/15/16 at 09:00 Multivit/Ca Carb/ B Cmplx/FA/Prenat (Sarika-Nahomi) 1 tab DAILY PO Last administered on 09/05/16 08:57; Admin Dose 1 TAB; Start 08/15/16 at 09:00 Saccharomyces Boulardii (Florastor) 500 mg BID PO Last administered on 08:57; Admin Dose 500 MG; Start 08/14/16 at 21:00 Tamsulosin HCl (Flomax) 0.4 mg HS PO Last administered on 09/04/16 21:57; Admin Dose 0.4 MG; Start 08/14/16 at 21:00 Miscellaneous Information 1 ea NOTE XX ; Start 08/14/16 at 15:30 Glucose (Glutose) 15 gm Q15M PRN PO DECREASED GLUCOSE; Start 08/14/16 at 15:30 Glucose (Glutose) 22.5 gm Q15M PRN PO DECREASED GLUCOSE; Start 08/14/16 at 15:30 Dextrose (D50w Syringe) 25 ml Q15M PRN IV DECREASED GLUCOSE Last administered on 08/28/16 23:45; Admin Dose 25 ML; Start 08/14/16 at 15:30 Dextrose (D50w Syringe) 50 ml Q15M PRN IV DECREASED GLUCOSE Last administered on 08/17/16 21:14; Admin Dose 50 ML; Start 08/14/16 at 15:30 Glucagon (Glucagen) 1 mg Q15M PRN IM DECREASED GLUCOSE; Start 08/14/16 at 15:30 Glucose (Glutose) 15 gm Q15M PRN BUCCAL DECREASED GLUCOSE; Start 08/14/16 at 15: 30 Diagnostic Test (Pha) (Accu-Chek) 1 ea 02 XX Last administered on 08/26/16 02: 00; Admin Dose 1 EA; Start 08/16/16 at 02:00 Ondansetron HCl (Zofran Inj) 4 mg Q4H PRN IV NAUSEA AND/OR VOMITING Last administered on 08/22/16 09:34; Admin Dose 4 MG; Start 08/16/16 at 09:30 Ondansetron HCl (Zofran Odt) 4 mg Q6H PRN ODT NAUSEA; Start 08/16/16 at 09:30 Lactobacillus Acidophilus (Florajen3 Capsule) 1 each BID PO Last administered on 09/05/16 08:57; Admin Dose 1 EACH; Start 08/17/16 at 09:00 Atorvastatin Calcium (Lipitor) 10 mg QHS PO Last administered on 09/04/16 21: 58; Admin Dose 10 MG; Start 08/17/16 at 21:00 Metoprolol Tartrate (Lopressor) 37.5 mg BID PO Last administered on 09/05/16 08 :58; Admin Dose 37.5 MG; Start 08/20/16 at 10:00 Morphine Sulfate (morphine) 1 mg Q2H PRN IV PAIN Last administered on 23:21; Admin Dose 1 MG; Start 08/21/16 at 19:00 Ciprofloxacin (Cipro) 500 mg DAILY@06 NGT Last administered on 09/05/16 05:52; Admin Dose 500 MG; Start 08/27/16 at 06:00 Doxycycline Hyclate (Vibramycin) 100 mg BID NGT Last administered on 09/05/16 08:56; Admin Dose 100 MG; Start 08/26/16 at 09:00 Insulin Glargine (Lantus) 10 unit QHS SC Last administered on 09/04/16 22:03; Admin Dose 10 UNIT; Start 08/29/16 at 21:00 Aspirin (Aspirin) 81 mg DAILY PO Last administered on 09/05/16 08:57; Admin Dose 81 MG; Start 09/04/16 at 09:30 Clopidogrel Bisulfate (plaVIX) 75 mg DAILY PO Last administered on 09/05/16 08: 57; Admin Dose 75 MG; Start 09/04/16 at 09:30 Apixaban (Eliquis) 2.5 mg BID PO Last administered on 09/05/16 08:57; Admin Dose 2.5 MG; Start 09/04/16 at 21:00 ARLETH JONES MD Sep 05, 2016 10:59
[2016-09-05 20:13] VITALS: BP 148/67; RESP 18
[2016-09-05] MEDS: ATORVASTATIN 10 MG TAB PO SCH (21:16)
[2016-09-05] MEDS: TAMSULOSIN (SR) 0.4 MG CAP PO SCH (21:16)
[2016-09-05] MEDS: INSULIN GLARGINE [LANtus] 3 ML PEN SC SCH (21:31)
[2016-09-06] MEDS: ACCU-CHEK XX SCH (01:55)
[2016-09-06] MEDS: CIPROFLOXACIN 500 MG TAB NGT SCH (05:16)
[2016-09-06] MEDS: SACCHAROMYCES BOULARDII 250 MG CAP PO SCH ×2 (08:11→21:57)
[2016-09-06] MEDS: CALCIUM ACETATE 667 MG CAP PO SCH ×3 (08:11→17:38)
[2016-09-06] MEDS: CREON (24K-76K-120K) 1 CAP PO SCH ×3 (08:11→17:38)
[2016-09-06] MEDS: MULTIVIT/CA CARB/B CMPLX/FA TAB PO SCH (08:12)
[2016-09-06] MEDS: APIXABAN 5 MG TABLET PO SCH ×2 (08:12→21:58)
[2016-09-06] MEDS: ASPIRIN 81 MG TAB PO SCH (08:12)
[2016-09-06] MEDS: L ACIDOPHIL/B LACTIS/B LONGUM CAPSULE PO SCH ×2 (08:12→21:56)
[2016-09-06] MEDS: LORATADINE 10 MG TAB PO SCH (08:12)
[2016-09-06] MEDS: CALCITRIOL 0.25 MCG CAP PO SCH (08:12)
[2016-09-06] MEDS: ASCORBIC ACID 500 MG TAB PO SCH (08:12)
[2016-09-06] MEDS: DOXYCYCLINE 100 MG TAB NGT SCH ×2 (08:12→21:57)
[2016-09-06] MEDS: CLOPIDOGREL 75 MG TAB PO SCH (08:12)
[2016-09-06] MEDS: INSULIN ASPART [NOVOLOG] 3 ML PEN SC SCH ×4 (08:15→22:32)
[2016-09-06 08:16] VITALS: BP 153/72; RESP 18
[2016-09-06] MEDS: METOPROLOL 25 MG TAB PO SCH ×2 (08:20→21:59)
--- NOTE | 2016-09-06 11:13 | PN ---
Date/Time of Note Date/Time of Note DATE: 09/06/16 TIME: 11:12 Assessment/Plan VTE Prophylaxis VTE Prophylaxis Intervention: other Lines/Catheters IV Catheter Type (from Nrsg): permacath Urinary Cath still in place: No Assessment/Plan Assessment/Plan 1. CKD, next HD this wednesday 2. Peripheral vasc dz stable 3. CAD, stable 4. Depression is not unexpected and would benefit from psych intervention Subjective 24 Hr Interval Summary Respiratory: No cough, No shortness of breath Cardiovascular: No chest pain Gastrointestinal: no complaints Genitourinary: no complaints Exam/Review of Systems Vital Signs Vitals Vital Signs Date Time Temp Pulse Resp B/P Pulse Ox O2 Delivery O2 Flow Rate FiO2 09/06/16 08:16 98.9 64 18 153/72 96 09/03/16 15:12 Nasal Cannula 09/03/16 13:30 4.0 Intake and Output 09/05/16 09/05/16 09/06/16 15:00 23:00 07:00 Intake Total 1320 ml 200 ml Output Total 200 ml Balance 1320 ml 0 ml Exam Neck: No jvd Respiratory: clear to auscultation Cardiovascular: regular rate and rhythm Gastrointestinal: soft Extremities: No edema Results Result Diagram: 09/05/16 0555 09/05/16 0555 Results 24 hrs Laboratory Tests Test 09/05/16 12:05 09/05/16 17:11 09/05/16 21:20 09/06/16 07:50 Bedside Glucose 149 167 164 145 Medications Medications Current Medications Acetaminophen/ Hydrocodone Bitart ([place] (5/325)) 1 tab Q6H PRN PO MODERATE PAIN LEVEL 4-6 Last administered on 09/03/16 23:21; Admin Dose 1 TAB; Start 08/14/16 at 14:30 Zolpidem Tartrate (Ambien) 5 mg QHS PRN PO SLEEP; Start 08/14/16 at 14:30 Acetaminophen (Tylenol Tab) 650 mg Q4 PRN PO PAIN AND OR ELEVATED TEMP; Start 08/14/16 at 14:30 Ascorbic Acid (Vitamin C) 500 mg DAILY PO Last administered on 09/06/16 08:12; Admin Dose 500 MG; Start 08/15/16 at 09:00 Bisacodyl (Dulcolax Supp) 10 mg DAILY PRN [place] BM; Start 08/14/16 at 14:30 Calcitriol (Rocaltrol) 0.25 mcg DAILY PO Last administered on 09/06/16 08:12; Admin Dose 0.25 MCG; Start 08/15/16 at 09:00 Loratadine (Claritin) 10 mg DAILY PO Last administered on 09/06/16 08:12; Admin Dose 10 MG; Start 08/15/16 at 09:00 Multivit/Ca Carb/ B Cmplx/FA/Prenat (Sarika-Nahomi) 1 tab DAILY PO Last administered on 09/06/16 08:12; Admin Dose 1 TAB; Start 08/15/16 at 09:00 Saccharomyces Boulardii (Florastor) 500 mg BID PO Last administered on 08:11; Admin Dose 500 MG; Start 08/14/16 at 21:00 Tamsulosin HCl (Flomax) 0.4 mg HS PO Last administered on 09/05/16 21:16; Admin Dose 0.4 MG; Start 08/14/16 at 21:00 Miscellaneous Information 1 ea NOTE XX ; Start 08/14/16 at 15:30 Glucose (Glutose) 15 gm Q15M PRN PO DECREASED GLUCOSE; Start 08/14/16 at 15:30 Glucose (Glutose) 22.5 gm Q15M PRN PO DECREASED GLUCOSE; Start 08/14/16 at 15:30 Dextrose (D50w Syringe) 25 ml Q15M PRN IV DECREASED GLUCOSE Last administered on 08/28/16 23:45; Admin Dose 25 ML; Start 08/14/16 at 15:30 Dextrose (D50w Syringe) 50 ml Q15M PRN IV DECREASED GLUCOSE Last administered on 08/17/16 21:14; Admin Dose 50 ML; Start 08/14/16 at 15:30 Glucagon (Glucagen) 1 mg Q15M PRN IM DECREASED GLUCOSE; Start 08/14/16 at 15:30 Glucose (Glutose) 15 gm Q15M PRN BUCCAL DECREASED GLUCOSE; Start 08/14/16 at 15: 30 Diagnostic Test (Pha) (Accu-Chek) 1 ea 02 XX Last administered on 08/26/16 02: 00; Admin Dose 1 EA; Start 08/16/16 at 02:00 Ondansetron HCl (Zofran Inj) 4 mg Q4H PRN IV NAUSEA AND/OR VOMITING Last administered on 08/22/16 09:34; Admin Dose 4 MG; Start 08/16/16 at 09:30 Ondansetron HCl (Zofran Odt) 4 mg Q6H PRN ODT NAUSEA; Start 08/16/16 at 09:30 Lactobacillus Acidophilus (Florajen3 Capsule) 1 each BID PO Last administered on 09/06/16 08:12; Admin Dose 1 EACH; Start 08/17/16 at 09:00 Atorvastatin Calcium (Lipitor) 10 mg QHS PO Last administered on 09/05/16 21:16 ; Admin Dose 10 MG; Start 08/17/16 at 21:00 Metoprolol Tartrate (Lopressor) 37.5 mg BID PO Last administered on 09/06/16 08 :20; Admin Dose 37.5 MG; Start 08/20/16 at 10:00 Morphine Sulfate (morphine) 1 mg Q2H PRN IV PAIN Last administered on 23:21; Admin Dose 1 MG; Start 08/21/16 at 19:00 Ciprofloxacin (Cipro) 500 mg DAILY@06 NGT Last administered on 09/06/16 05:16; Admin Dose 500 MG; Start 08/27/16 at 06:00 Doxycycline Hyclate (Vibramycin) 100 mg BID NGT Last administered on 09/06/16 08:12; Admin Dose 100 MG; Start 08/26/16 at 09:00 Insulin Glargine (Lantus) 10 unit QHS SC Last administered on 09/05/16 21:31; Admin Dose 10 UNIT; Start 08/29/16 at 21:00 Aspirin (Aspirin) 81 mg DAILY PO Last administered on 09/06/16 08:12; Admin Dose 81 MG; Start 09/04/16 at 09:30 Clopidogrel Bisulfate (plaVIX) 75 mg DAILY PO Last administered on 09/06/16 08: 12; Admin Dose 75 MG; Start 09/04/16 at 09:30 Apixaban (Eliquis) 2.5 mg BID PO Last administered on 09/06/16 08:12; Admin Dose 2.5 MG; Start 09/04/16 at 21:00 ARLETH JONES MD Sep 06, 2016 11:13
[2016-09-06 19:33] VITALS: BP 152/68; RESP 18
[2016-09-06] MEDS: ATORVASTATIN 10 MG TAB PO SCH (21:57)
[2016-09-06] MEDS: TAMSULOSIN (SR) 0.4 MG CAP PO SCH (21:57)
[2016-09-06] MEDS: INSULIN GLARGINE [LANtus] 3 ML PEN SC SCH (22:30)
[2016-09-07] VITALS (9 sets, daily range): BP systolic 110–149; BP diastolic 54–74; PULSE 60–63; RESP 18–20
[2016-09-07] MEDS: ACCU-CHEK XX SCH (02:40)
[2016-09-07 05:51] LABS: BASOPHILS % 0.3 % (0.0-2.0); EOSINOPHILS # 0.4 10^3/ul (0.0-0.5); EOSINOPHILS % 4.6 % (0.0-7.0); HEMATOCRIT 29.1 % (42.0-52.0); HEMOGLOBIN 9.2 g/dl (14.0-18.0); LYMPHOCYTES # 1.4 10^3/ul (0.8-2.9); LYMPHOCYTES % 16.2 % (15.0-51.0); MEAN CORPUSCULAR HEMOGLOBIN 29.8 pg (29.0-33.0); MEAN CORPUSCULAR HGB CONC 31.6 g/dl (32.0-37.0); MEAN CORPUSCULAR VOLUME 94.2 fl (82.0-101.0); MEAN PLATELET VOLUME 10.1 fl (7.4-10.4); MONOCYTE # 0.7 10^3/ul (0.3-0.9); MONOCYTES % 7.8 % (0.0-11.0); NEUTROPHIL # 6.2 10^3/ul (1.6-7.5); NEUTROPHILS % 70.6 % (39.0-77.0); PLATELET COUNT 174 10^3/UL (140-415); RED BLOOD COUNT 3.09 10^6/ul (4.70-6.10); RED CELL DISTRIBUTION WIDTH 15.9 % (11.5-14.5); WHITE BLOOD COUNT 8.7 10^3/ul (4.8-10.8)
[2016-09-07 06:02] LABS: ADD SCAN DIFF NO
[2016-09-07] MEDS: CIPROFLOXACIN 500 MG TAB NGT SCH (06:12)
[2016-09-07 06:14] LABS: CALCIUM 8.1 mg/dl (8.4-10.2); CREATININE 6.98 mg/dl (0.61-1.24); POTASSIUM 4.7 mmol/L (3.5-5.1)
[2016-09-07] MEDS: HYDROCODONE/APAP (5/325) TAB PO PRN (06:58)
[2016-09-07] MEDS: INSULIN ASPART [NOVOLOG] 3 ML PEN SC SCH ×4 (08:28→21:00)
[2016-09-07] MEDS: LORATADINE 10 MG TAB PO SCH (08:39)
[2016-09-07] MEDS: CALCIUM ACETATE 667 MG CAP PO SCH ×3 (08:39→18:08)
[2016-09-07] MEDS: SACCHAROMYCES BOULARDII 250 MG CAP PO SCH ×2 (08:39→22:12)
[2016-09-07] MEDS: CALCITRIOL 0.25 MCG CAP PO SCH (08:39)
[2016-09-07] MEDS: DOXYCYCLINE 100 MG TAB NGT SCH ×2 (08:39→22:11)
[2016-09-07] MEDS: CREON (24K-76K-120K) 1 CAP PO SCH ×3 (08:39→18:08)
[2016-09-07] MEDS: MULTIVIT/CA CARB/B CMPLX/FA TAB PO SCH (08:39)
[2016-09-07] MEDS: ASPIRIN 81 MG TAB PO SCH (08:40)
[2016-09-07] MEDS: L ACIDOPHIL/B LACTIS/B LONGUM CAPSULE PO SCH ×2 (08:40→22:11)
[2016-09-07] MEDS: ASCORBIC ACID 500 MG TAB PO SCH (08:40)
[2016-09-07] MEDS: APIXABAN 5 MG TABLET PO SCH ×2 (08:40→22:12)
[2016-09-07] MEDS: CLOPIDOGREL 75 MG TAB PO SCH (08:40)
[2016-09-07] MEDS: METOPROLOL 25 MG TAB PO SCH ×2 (08:41→22:13)
--- NOTE | 2016-09-07 09:57 | PN ---
Date/Time of Note Date/Time of Note DATE: 09/07/16 TIME: 09:55 Assessment/Plan Lines/Catheters IV Catheter Type (from [facility]): permacath [place] in Place (from [facility]): No Assessment/Plan Chief Complaint/Hosp Course -Bilateral lower extremity atherosclerosis with gangrene: It seems the patient has developed worsening of his fourth toe wound with his heel ulcer. Lower extremity arterial duplex demonstrated monophasic flow in the distal thigh of the graft. At the moment the patient had a CO and likely an acute stroke therefore a CT angiography was obtained that demonstrated adequate flow to the lower leg although concern for possible velocities were noted on Ultrasound. -Had a lengthy conversation with his daughter in regards to his current status and what he can tolerate and risks and benefits of performing a LE angiogram, decision was made to hold off on any further vascular intervention and allow him to improve medically. We further discussed his foot cellulitis and tissue loss/gangrene and at the moment they are stable/dry and treated with antibiotics , therefore recommend continue with conservative management for now. Management has been discussed with our podiatry colleagues -ESRD: S/P RUE fistula ligation and control of bleeding, S/P perm catheter placement, will evaluate for eventual fistula creation as outpt -Continue wound care per podiatry -Optimize vascular status (BP meds, diet, nutrition, exercise, sugar control, antiplatelets). -Discussed findings, plan and management with the patient and he understands. -Thank you for allowing us to partake in the care of your patient. Please call with any questions. Problems: Subjective 24 Hr Interval Summary no new vascular events overnight Exam/Review of Systems Vital Signs Vitals Vital Signs Date Time Temp Pulse Resp B/P Pulse Ox O2 Delivery O2 Flow Rate FiO2 09/07/16 07:52 97.1 66 20 143/66 95 09/03/16 15:12 Nasal Cannula 09/03/16 13:30 4.0 Intake and Output 09/06/16 09/06/16 09/07/16 15:00 23:00 07:00 Intake Total 600 ml 240 ml Output Total 70 ml Balance 600 ml 170 ml Exam Free Text/Dictation GENERAL: Alert and oriented x3 PULMONARY: Clear to auscultation bilaterally CARDIOVASCULAR: S1, S2 present. ABDOMEN: Soft, nontender, nondistended. Bowel sounds positive. EXTREMITIES: -Right lower extremity: Palpable femoral pulse, nonpalpable pedal pulse. Motor and sensory intact, 4th toe and heel ulcer with stable dry gangrene. Surgical scars are well healed. Bypass that crosses over on the anterior espinal is palpable -LLE: clean, intact and dry -RUE: palpable brachial pulse, motor/sensory intact, capillary refill 3 seconds , Fistula ligated, incision sites C/D/I, wound in the mid upper arm clean and dressing removed Results Result Diagram: 09/07/16 0430 09/07/16 0450 MARTÍNEZ ROSADO MD Sep 07, 2016 09:57
--- NOTE | 2016-09-07 13:53 | PN ---
Date/Time of Note Date/Time of Note DATE: 09/07/16 TIME: 13:46 Assessment/Plan VTE Prophylaxis VTE Prophylaxis Intervention: other Lines/Catheters IV [facility] permacath Urinary Cath still in place: No Assessment/Plan Chief Complaint/Hosp Course 1. ESRD on maintenance hemodialysis [facility] . He just finished his hemodialysis treatment and 3 L of fluid was removed. 2. CAD he has had NSTEMI , he had a coronary angiogram and had 2 stents placed in the LAD. aspirin and Plavix have been restarted. 3. IDDM , his blood sugars have been under control. 4. PAD , gangrene of R foot 4th toe . Vascular surgery says that we can wait to do an amputation . 5. cellulitis of R lower leg , improving on antibiotics. 6. postural hypotension . 7. Atrial fib/flutter, Eliquis has been restarted. 8. Depression , he seems better . I spoke with his daughter today and she says that he seems in better spirits today. She says that his depression varies from day to day but today he seems better.. 9. CVA , R frontal lobe infarct with L hemiparesis and slurred speech , improved . 10. dysphagia . He is able to swallow and says that he is eating more; however , the speech therapist thinks that he is having more trouble with liquids and wants to do a video swallowing study which she ordered. 11. Discharge planning. We are planning on transferring him to [facility]. This will hopefully occur in the next day or 2. 12. He is being dialyzed via a left internal jugular permacath. This catheter seems to be working well. Problems: Subjective 24 Hr Interval Summary Free Text/Dictation The patient is awake and alert. He is having his routine hemodialysis treatment. He is tolerating the procedure well. His daughter is in the room with him. Constitutional: improved, no complaints Cardiovascular: no complaints Gastrointestinal: no complaints Genitourinary: no complaints Musculoskeletal: no complaints Neurologic: focal-weakness Exam/Review of Systems Vital Signs Vitals Vital Signs Date Time Temp Pulse Resp B/P Pulse Ox O2 Delivery O2 Flow Rate FiO2 09/07/16 12:40 60 09/07/16 10:40 18 09/07/16 07:52 97.1 143/66 95 09/03/16 15:12 Nasal Cannula 09/03/16 13:30 4.0 Intake and Output 09/06/16 09/06/16 09/07/16 15:00 23:00 07:00 Intake Total 600 ml 240 ml Output Total 70 ml Balance 600 ml 170 ml Exam Left leg is status post a below the knee amputation. Right foot has a gangrenous fourth toe. There was no erythema on the lower extremity at this time. Constitutional: alert, oriented Neck: supple Respiratory: clear to auscultation, normal air movement Cardiovascular: regular rate and rhythm Gastrointestinal: non-tender, soft Results Result Diagram: 09/07/16 0430 09/07/16 0450 Results 24 hrs Laboratory Tests Test 09/06/16 17:17 09/06/16 22:20 09/07/16 02:38 09/07/16 04:30 Bedside Glucose 118 204 167 White Blood Count 8.7 Red Blood Count 3.09 L Hemoglobin 9.2 L Hematocrit 29.1 L Mean Corpuscular Volume 94.2 Mean Corpuscular Hemoglobin 29.8 Mean Corpuscular Hemoglobin Concent 31.6 L Red Cell Distribution Width 15.9 H Platelet Count 174 Mean Platelet Volume 10.1 Neutrophils % 70.6 Lymphocytes % 16.2 Monocytes % 7.8 Eosinophils % 4.6 Basophils % 0.3 Nucleated Red Blood Cells % 0.0 Neutrophils # 6.2 Lymphocytes # 1.4 Monocytes # 0.7 Eosinophils # 0.4 Basophils # 0.0 Nucleated Red Blood Cells # 0.0 Test 09/07/16 04:50 09/07/16 08:19 09/07/16 12:18 Sodium Level 136 Potassium Level 4.7 Chloride Level 99 Carbon Dioxide Level 26 Anion Gap 16 Blood Urea Nitrogen 49 #H Creatinine 6.98 #H Glucose Level 143 Calcium Level 8.1 L Bedside Glucose 142 159 Medications Medications Current Medications Acetaminophen/ Hydrocodone Bitart ([place] (5/325)) 1 tab Q6H PRN PO MODERATE PAIN LEVEL 4-6 Last administered on 09/07/16t 06:58; Admin Dose 1 TAB; Start 08/14 at 14:30 Zolpidem Tartrate (Ambien) 5 mg QHS PRN PO SLEEP; Start 08/14/16 at 14:30 Acetaminophen (Tylenol Tab) 650 mg Q4 PRN PO PAIN AND OR ELEVATED TEMP; Start 08/14/16 at 14:30 Ascorbic Acid (Vitamin C) 500 mg DAILY PO Last administered on 09/07/16 08:40; Admin Dose 500 MG; Start 08/15/16 at 09:00 Bisacodyl (Dulcolax Supp) 10 mg DAILY PRN [place] BM; Start 08/14/16 at 14:30 Calcitriol (Rocaltrol) 0.25 mcg DAILY PO Last administered on 09/07/16 08:39; Admin Dose 0.25 MCG; Start 08/15/16 at 09:00 Loratadine (Claritin) 10 mg DAILY PO Last administered on 09/07/16 08:39; Admin Dose 10 MG; Start 08/15/16 at 09:00 Multivit/Ca Carb/ B Cmplx/FA/Prenat (Sarika-Nahomi) 1 tab DAILY PO Last administered on 09/07/16 08:39; Admin Dose 1 TAB; Start 08/15/16 at 09:00 Saccharomyces Boulardii (Florastor) 500 mg BID PO Last administered on 08:39; Admin Dose 500 MG; Start 08/14/16 at 21:00 Tamsulosin HCl (Flomax) 0.4 mg HS PO Last administered on 09/06/16 21:57; Admin Dose 0.4 MG; Start 08/14/16 at 21:00 Miscellaneous Information 1 ea NOTE XX ; Start 08/14/16 at 15:30 Glucose (Glutose) 15 gm Q15M PRN PO DECREASED GLUCOSE; Start 08/14/16 at 15:30 Glucose (Glutose) 22.5 gm Q15M PRN PO DECREASED GLUCOSE; Start 08/14/16 at 15:30 Dextrose (D50w Syringe) 25 ml Q15M PRN IV DECREASED GLUCOSE Last administered on 08/28/16 23:45; Admin Dose 25 ML; Start 08/14/16 at 15:30 Dextrose (D50w Syringe) 50 ml Q15M PRN IV DECREASED GLUCOSE Last administered on 08/17/16 21:14; Admin Dose 50 ML; Start 08/14/16 at 15:30 Glucagon (Glucagen) 1 mg Q15M PRN IM DECREASED GLUCOSE; Start 08/14/16 at 15:30 Glucose (Glutose) 15 gm Q15M PRN BUCCAL DECREASED GLUCOSE; Start 08/14/16 at 15: 30 Diagnostic Test (Pha) (Accu-Chek) 1 ea 02 XX Last administered on 09/07/16 02: 40; Admin Dose 1 EA; Start 08/16/16 at 02:00 Ondansetron HCl (Zofran Inj) 4 mg Q4H PRN IV NAUSEA AND/OR VOMITING Last administered on 08/22/16 09:34; Admin Dose 4 MG; Start 08/16/16 at 09:30 Ondansetron HCl (Zofran Odt) 4 mg Q6H PRN ODT NAUSEA; Start 08/16/16 at 09:30 Lactobacillus Acidophilus (Florajen3 Capsule) 1 each BID PO Last administered on 09/07/16 08:40; Admin Dose 1 EACH; Start 08/17/16 at 09:00 Atorvastatin Calcium (Lipitor) 10 mg QHS PO Last administered on 09/06/16 21:57 ; Admin Dose 10 MG; Start 08/17/16 at 21:00 Metoprolol Tartrate (Lopressor) 37.5 mg BID PO Last administered on 09/06/16 21 :59; Admin Dose 37.5 MG; Start 08/20/16 at 10:00 Morphine Sulfate (morphine) 1 mg Q2H PRN IV PAIN Last administered on 23:21; Admin Dose 1 MG; Start 08/21/16 at 19:00 Ciprofloxacin (Cipro) 500 mg DAILY@06 NGT Last administered on 09/07/16 06:12; Admin Dose 500 MG; Start 08/27/16 at 06:00 Doxycycline Hyclate (Vibramycin) 100 mg BID NGT Last administered on 09/07/16 08:39; Admin Dose 100 MG; Start 08/26/16 at 09:00 Insulin Glargine (Lantus) 10 unit QHS SC Last administered on 09/06/16 22:30; Admin Dose 10 UNIT; Start 08/29/16 at 21:00 Aspirin (Aspirin) 81 mg DAILY PO Last administered on 09/07/16 08:40; Admin Dose 81 MG; Start 09/04/16 at 09:30 Clopidogrel Bisulfate (plaVIX) 75 mg DAILY PO Last administered on 09/07/16 08: 40; Admin Dose 75 MG; Start 09/04/16 at 09:30 Apixaban (Eliquis) 2.5 mg BID PO Last administered on 09/07/16t 08:40; Admin Dose 2.5 MG; Start 09/04/16 at 21:00 CELESTE BHATT MD Sep 07, 2016 13:53
[2016-09-07] MEDS: TAMSULOSIN (SR) 0.4 MG CAP PO SCH (22:12)
[2016-09-07] MEDS: ATORVASTATIN 10 MG TAB PO SCH (22:12)
[2016-09-07] MEDS: INSULIN GLARGINE [LANtus] 3 ML PEN SC SCH (22:19)
[2016-09-08] MEDS: ACCU-CHEK XX SCH (02:00)
[2016-09-08] MEDS: CIPROFLOXACIN 500 MG TAB NGT SCH (05:23)
[2016-09-08 08:04] VITALS: BP 146/68; RESP 20
[2016-09-08] MEDS: INSULIN ASPART [NOVOLOG] 3 ML PEN SC SCH ×4 (08:06→20:35)
[2016-09-08] MEDS: METOPROLOL 25 MG TAB PO SCH ×2 (08:52→20:18)
[2016-09-08] MEDS: APIXABAN 5 MG TABLET PO SCH ×2 (08:52→20:16)
[2016-09-08] MEDS: morphine 2 MG INJ IV PRN (08:56)
[2016-09-08] MEDS: ASCORBIC ACID 500 MG TAB PO SCH (08:58)
[2016-09-08] MEDS: LORATADINE 10 MG TAB PO SCH (08:58)
[2016-09-08] MEDS: CLOPIDOGREL 75 MG TAB PO SCH (08:58)
[2016-09-08] MEDS: CALCITRIOL 0.25 MCG CAP PO SCH (08:58)
[2016-09-08] MEDS: SACCHAROMYCES BOULARDII 250 MG CAP PO SCH ×2 (08:58→20:16)
[2016-09-08] MEDS: ASPIRIN 81 MG TAB PO SCH (08:58)
[2016-09-08] MEDS: DOXYCYCLINE 100 MG TAB NGT SCH ×2 (08:58→20:16)
[2016-09-08] MEDS: MULTIVIT/CA CARB/B CMPLX/FA TAB PO SCH (08:58)
[2016-09-08] MEDS: CREON (24K-76K-120K) 1 CAP PO SCH ×3 (08:59→17:34)
[2016-09-08] MEDS: CALCIUM ACETATE 667 MG CAP PO SCH ×3 (08:59→17:34)
[2016-09-08] MEDS: L ACIDOPHIL/B LACTIS/B LONGUM CAPSULE PO SCH ×3 (09:00→20:16)
[2016-09-08 09:05] VITALS: BP 150/70; PULSE 65
--- NOTE | 2016-09-08 12:18 | PN ---
Date/Time of Note Date/Time of Note DATE: 09/08/16 TIME: 12:16 Assessment/Plan VTE Prophylaxis VTE Prophylaxis Intervention: other Lines/Catheters IV Catheter Type (from Nrsg): permacath Urinary Cath still in place: No Assessment/Plan Assessment/Plan 1. CKD, stable with next hd tomm 2. ASHD, quiescent 3. DM, control is acceptable. 4. DC planning in progress Subjective 24 Hr Interval Summary Respiratory: No shortness of breath Cardiovascular: No chest pain Gastrointestinal: no complaints Genitourinary: no complaints Exam/Review of Systems Vital Signs Vitals Vital Signs Date Time Temp Pulse Resp B/P Pulse Ox O2 Delivery O2 Flow Rate FiO2 09/08/16 09:05 65 150/70 09/08/16 08:04 98.0 20 96 Intake and Output 09/07/16 09/07/16 09/08/16 15:00 23:00 07:00 Intake Total 300 ml 540 ml 240 ml Output Total 3300 ml 0 ml 0 ml Balance -3000 ml 540 ml 240 ml Exam Neck: No jvd Respiratory: clear to auscultation Cardiovascular: regular rate and rhythm Gastrointestinal: soft Extremities: No edema Results Result Diagram: 09/07/16 0430 09/07/16 0450 Results 24 hrs Laboratory Tests Test 09/07/16 12:18 09/07/16 17:42 09/07/16 22:15 09/08/16 07:58 Bedside Glucose 159 151 151 105 Medications Medications Current Medications Acetaminophen/ Hydrocodone Bitart ([place] (5/325)) 1 tab Q6H PRN PO MODERATE PAIN LEVEL 4-6 Last administered on 09/07/16 06:58; Admin Dose 1 TAB; Start 08/14 at 14:30 Zolpidem Tartrate (Ambien) 5 mg QHS PRN PO SLEEP; Start 08/14/16 at 14:30 Acetaminophen (Tylenol Tab) 650 mg Q4 PRN PO PAIN AND OR ELEVATED TEMP; Start 08/14/16 at 14:30 Ascorbic Acid (Vitamin C) 500 mg DAILY PO Last administered on 09/08/16 08:58; Admin Dose 500 MG; Start 08/15/16 at 09:00 Bisacodyl (Dulcolax Supp) 10 mg DAILY PRN [place] BM; Start 08/14/16 at 14:30 Calcitriol (Rocaltrol) 0.25 mcg DAILY PO Last administered on 09/08/16 08:58; Admin Dose 0.25 MCG; Start 08/15/16 at 09:00 Loratadine (Claritin) 10 mg DAILY PO Last administered on 09/08/16 08:58; Admin Dose 10 MG; Start 08/15/16 at 09:00 Multivit/Ca Carb/ B Cmplx/FA/Prenat (Sarika-Nahomi) 1 tab DAILY PO Last administered on 09/08/16 08:58; Admin Dose 1 TAB; Start 08/15/16 at 09:00 Saccharomyces Boulardii (Florastor) 500 mg BID PO Last administered on 08:58; Admin Dose 500 MG; Start 08/14/16 at 21:00 Tamsulosin HCl (Flomax) 0.4 mg HS PO Last administered on 09/07/16 22:12; Admin Dose 0.4 MG; Start 08/14/16 at 21:00 Miscellaneous Information 1 ea NOTE XX ; Start 08/14/16 at 15:30 Glucose (Glutose) 15 gm Q15M PRN PO DECREASED GLUCOSE; Start 08/14/16 at 15:30 Glucose (Glutose) 22.5 gm Q15M PRN PO DECREASED GLUCOSE; Start 08/14/16 at 15:30 Dextrose (D50w Syringe) 25 ml Q15M PRN IV DECREASED GLUCOSE Last administered on 08/28/16 23:45; Admin Dose 25 ML; Start 08/14/16 at 15:30 Dextrose (D50w Syringe) 50 ml Q15M PRN IV DECREASED GLUCOSE Last administered on 08/17/16 21:14; Admin Dose 50 ML; Start 08/14/16 at 15:30 Glucagon (Glucagen) 1 mg Q15M PRN IM DECREASED GLUCOSE; Start 08/14/16 at 15:30 Glucose (Glutose) 15 gm Q15M PRN BUCCAL DECREASED GLUCOSE; Start 08/14/16 at 15: 30 Diagnostic Test (Pha) (Accu-Chek) 1 ea 02 XX Last administered on 09/07/16 02: 40; Admin Dose 1 EA; Start 08/16/16 at 02:00 Ondansetron HCl (Zofran Inj) 4 mg Q4H PRN IV NAUSEA AND/OR VOMITING Last administered on 08/22/16 09:34; Admin Dose 4 MG; Start 08/16/16 at 09:30 Ondansetron HCl (Zofran Odt) 4 mg Q6H PRN ODT NAUSEA; Start 08/16/16 at 09:30 Lactobacillus Acidophilus (Florajen3 Capsule) 1 each BID PO Last administered on 09/07/16 22:11; Admin Dose 1 EACH; Start 08/17/16 at 09:00 Atorvastatin Calcium (Lipitor) 10 mg QHS PO Last administered on 09/07/16 22:12 ; Admin Dose 10 MG; Start 08/17/16 at 21:00 Metoprolol Tartrate (Lopressor) 37.5 mg BID PO Last administered on 09/08/16 08 :52; Admin Dose 37.5 MG; Start 08/20/16 at 10:00 Morphine Sulfate (morphine) 1 mg Q2H PRN IV PAIN Last administered on 09/08/16 08:56; Admin Dose 1 MG; Start 08/21/16 at 19:00 Ciprofloxacin (Cipro) 500 mg DAILY@06 NGT Last administered on 09/08/16 05:23; Admin Dose 500 MG; Start 08/27/16 at 06:00 Doxycycline Hyclate (Vibramycin) 100 mg BID NGT Last administered on 09/08/16 08:58; Admin Dose 100 MG; Start 08/26/16 at 09:00 Insulin Glargine (Lantus) 10 unit QHS SC Last administered on 09/07/16 22:19; Admin Dose 10 UNIT; Start 08/29/16 at 21:00 Aspirin (Aspirin) 81 mg DAILY PO Last administered on 09/08/16 08:58; Admin Dose 81 MG; Start 09/04/16 at 09:30 Clopidogrel Bisulfate (plaVIX) 75 mg DAILY PO Last administered on 09/08/16 08: 58; Admin Dose 75 MG; Start 09/04/16 at 09:30 Apixaban (Eliquis) 2.5 mg BID PO Last administered on 09/08/16 08:52; Admin Dose 2.5 MG; Start 09/04/16 at 21:00 ARLETH JONES MD Sep 08, 2016 12:18
[2016-09-08] MEDS: TAMSULOSIN (SR) 0.4 MG CAP PO SCH (20:16)
[2016-09-08] MEDS: ATORVASTATIN 10 MG TAB PO SCH (20:16)
[2016-09-08] MEDS: HYDROCODONE/APAP (5/325) TAB PO PRN (20:17)
[2016-09-08 20:20] VITALS: BP 155/70; RESP 20
[2016-09-08] MEDS: INSULIN GLARGINE [LANtus] 3 ML PEN SC SCH (20:34)
[2016-09-09] VITALS (9 sets, daily range): BP systolic 115–160; BP diastolic 50–74; PULSE 60–65; RESP 18–20
[2016-09-09] MEDS: ACCU-CHEK XX SCH (02:00)
[2016-09-09 05:13] LABS: ADD SCAN DIFF NO
[2016-09-09 05:21] LABS: BASOPHILS % 0.4 % (0.0-2.0); EOSINOPHILS # 0.3 10^3/ul (0.0-0.5); EOSINOPHILS % 3.7 % (0.0-7.0); HEMOGLOBIN 8.7 g/dl (14.0-18.0); LYMPHOCYTES # 1.5 10^3/ul (0.8-2.9); LYMPHOCYTES % 18.8 % (15.0-51.0); MEAN CORPUSCULAR HEMOGLOBIN 28.9 pg (29.0-33.0); MEAN CORPUSCULAR HGB CONC 31.1 g/dl (32.0-37.0); MEAN PLATELET VOLUME 9.8 fl (7.4-10.4); MONOCYTE # 0.6 10^3/ul (0.3-0.9); MONOCYTES % 7.2 % (0.0-11.0); NEUTROPHIL # 5.4 10^3/ul (1.6-7.5); NEUTROPHILS % 69.5 % (39.0-77.0); PLATELET COUNT 157 10^3/UL (140-415); RED BLOOD COUNT 3.01 10^6/ul (4.70-6.10); RED CELL DISTRIBUTION WIDTH 16.1 % (11.5-14.5); WHITE BLOOD COUNT 7.8 10^3/ul (4.8-10.8)
[2016-09-09 05:54] LABS: CALCIUM 8.2 mg/dl (8.4-10.2); CREATININE 6.33 mg/dl (0.61-1.24); POTASSIUM 4.9 mmol/L (3.5-5.1)
[2016-09-09] MEDS: CIPROFLOXACIN 500 MG TAB NGT SCH (06:20)
[2016-09-09] MEDS: INSULIN ASPART [NOVOLOG] 3 ML PEN SC SCH ×4 (08:15→20:48)
[2016-09-09] MEDS: CALCITRIOL 0.25 MCG CAP PO SCH (08:53)
[2016-09-09] MEDS: CREON (24K-76K-120K) 1 CAP PO SCH ×3 (08:53→18:38)
[2016-09-09] MEDS: MULTIVIT/CA CARB/B CMPLX/FA TAB PO SCH (08:53)
[2016-09-09] MEDS: ASPIRIN 81 MG TAB PO SCH (08:53)
[2016-09-09] MEDS: LORATADINE 10 MG TAB PO SCH (08:54)
[2016-09-09] MEDS: SACCHAROMYCES BOULARDII 250 MG CAP PO SCH ×2 (08:54→20:25)
[2016-09-09] MEDS: ASCORBIC ACID 500 MG TAB PO SCH (08:54)
[2016-09-09] MEDS: CALCIUM ACETATE 667 MG CAP PO SCH ×3 (08:54→18:38)
[2016-09-09] MEDS: CLOPIDOGREL 75 MG TAB PO SCH (08:54)
[2016-09-09] MEDS: DOXYCYCLINE 100 MG TAB NGT SCH ×2 (08:54→20:26)
[2016-09-09] MEDS: APIXABAN 5 MG TABLET PO SCH ×2 (08:54→20:26)
[2016-09-09] MEDS: L ACIDOPHIL/B LACTIS/B LONGUM CAPSULE PO SCH ×2 (08:55→20:29)
[2016-09-09] MEDS: METOPROLOL 25 MG TAB PO SCH ×2 (09:00→20:25)
--- NOTE | 2016-09-09 13:46 | PN ---
Date/Time of Note Date/Time of Note DATE: 09/09/16 TIME: 13:42 Assessment/Plan VTE Prophylaxis VTE Prophylaxis Intervention: other Lines/Catheters IV Catheter Type (from [facility]): PERM-A-CATH Urinary Cath still in place: No Assessment/Plan Chief Complaint/Hosp Course 1. ESRD on maintenance hemodialysis [facility] . He is currently having his routine hemodialysis treatment. 2. CAD he has had NSTEMI , he had a coronary angiogram and had 2 stents placed in the LAD. aspirin and Plavix have been restarted. 3. IDDM , his blood sugars have been under control. 4. PAD , gangrene of R foot 4th toe . Vascular surgery says that we can wait to do an amputation . 5. cellulitis of R lower leg , improving on antibiotics. 6. postural hypotension . 7. Atrial fib/flutter, Eliquis has been restarted. 8. Depression , he seems better . I spoke with his daughter today and she says that he seems in better spirits today. She says that his depression varies from day to day but today he seems better.. 9. CVA , R frontal lobe infarct with L hemiparesis and slurred speech , improved . 10. dysphagia . He is able to swallow and says that he is eating more; however , the speech therapist thinks that he is having more trouble with liquids and wants to do a video swallowing study which she ordered. 11. Discharge planning. We are planning on transferring him to [facility]. This will hopefully occur in the next day or 2. 12. He is being dialyzed via a left internal jugular permacath. This catheter seems to be working well. 13. He is becoming more anemic. I will resume Epogen injections. Problems: Subjective 24 Hr Interval Summary Free Text/Dictation He is currently having his routine hemodialysis treatment. He is awake and is conversant. He says that he is doing well with his diet. Constitutional: no complaints Respiratory: no complaints Cardiovascular: no complaints Gastrointestinal: no complaints Genitourinary: no complaints Neurologic: no complaints Exam/Review of Systems Vital Signs Vitals Vital Signs Date Time Temp Pulse Resp B/P Pulse Ox O2 Delivery O2 Flow Rate FiO2 09/09/16 08:08 98.0 71 18 153/74 96 Intake and Output 09/08/16 09/08/16 09/09/16 15:00 23:00 07:00 Intake Total 700 ml 300 ml Output Total 125 ml 150 ml Balance 575 ml 150 ml Exam He is status post a left BKA. His right leg is less erythematous and seems back to baseline. He has a gangrenous fourth toe on the right foot. Constitutional: alert, oriented Respiratory: clear to auscultation, normal air movement Cardiovascular: regular rate and rhythm Gastrointestinal: soft Results Result Diagram: 09/09/16 0445 09/09/16 0445 Results 24 hrs Laboratory Tests Test 09/08/16 17:11 09/08/16 20:28 09/09/16 04:45 09/09/16 08:32 Bedside Glucose 170 135 134 White Blood Count 7.8 Red Blood Count 3.01 L Hemoglobin 8.7 L Hematocrit 28.0 L Mean Corpuscular Volume 93.0 Mean Corpuscular Hemoglobin 28.9 L Mean Corpuscular Hemoglobin Concent 31.1 L Red Cell Distribution Width 16.1 H Platelet Count 157 Mean Platelet Volume 9.8 Neutrophils % 69.5 Lymphocytes % 18.8 Monocytes % 7.2 Eosinophils % 3.7 Basophils % 0.4 Nucleated Red Blood Cells % 0.0 Neutrophils # 5.4 Lymphocytes # 1.5 Monocytes # 0.6 Eosinophils # 0.3 Basophils # 0.0 Nucleated Red Blood Cells # 0.0 Sodium Level 139 Potassium Level 4.9 Chloride Level 97 Carbon Dioxide Level 26 Anion Gap 21 H Blood Urea Nitrogen 53 H Creatinine 6.33 H Glucose Level 123 Calcium Level 8.2 L Test 09/09/16 12:13 Bedside Glucose 118 Medications Medications Current Medications Acetaminophen/ Hydrocodone Bitart ([place] (5/325)) 1 tab Q6H PRN PO MODERATE PAIN LEVEL 4-6 Last administered on 09/08/16 20:17; Admin Dose 1 TAB; Start 08/14 at 14:30 Zolpidem Tartrate (Ambien) 5 mg QHS PRN PO SLEEP; Start 08/14/16 at 14:30 Acetaminophen (Tylenol Tab) 650 mg Q4 PRN PO PAIN AND OR ELEVATED TEMP; Start 08/14/16 at 14:30 Ascorbic Acid (Vitamin C) 500 mg DAILY PO Last administered on 09/09/16 08:54; Admin Dose 500 MG; Start 08/15/16 at 09:00 Bisacodyl (Dulcolax Supp) 10 mg DAILY PRN RI BM; Start 08/14/16 at 14:30 Calcitriol (Rocaltrol) 0.25 mcg DAILY PO Last administered on 09/09/16 08:53; Admin Dose 0.25 MCG; Start 08/15/16 at 09:00 Loratadine (Claritin) 10 mg DAILY PO Last administered on 09/09/16 08:54; Admin Dose 10 MG; Start 08/15/16 at 09:00 Multivit/Ca Carb/ B Cmplx/FA/Prenat (Sarika-Nahomi) 1 tab DAILY PO Last administered on 09/09/16 08:53; Admin Dose 1 TAB; Start 08/15/16 at 09:00 Saccharomyces Boulardii (Florastor) 500 mg BID PO Last administered on 08:54; Admin Dose 500 MG; Start 08/14/16 at 21:00 Tamsulosin HCl (Flomax) 0.4 mg HS PO Last administered on 09/08/16 20:16; Admin Dose 0.4 MG; Start 08/14/16 at 21:00 Miscellaneous Information 1 ea NOTE XX ; Start 08/14/16 at 15:30 Glucose (Glutose) 15 gm Q15M PRN PO DECREASED GLUCOSE; Start 08/14/16 at 15:30 Glucose (Glutose) 22.5 gm Q15M PRN PO DECREASED GLUCOSE; Start 08/14/16 at 15:30 Dextrose (D50w Syringe) 25 ml Q15M PRN IV DECREASED GLUCOSE Last administered on 08/28/16 23:45; Admin Dose 25 ML; Start 08/14/16 at 15:30 Dextrose (D50w Syringe) 50 ml Q15M PRN IV DECREASED GLUCOSE Last administered on 08/17/16 21:14; Admin Dose 50 ML; Start 08/14/16 at 15:30 Glucagon (Glucagen) 1 mg Q15M PRN IM DECREASED GLUCOSE; Start 08/14/16 at 15:30 Glucose (Glutose) 15 gm Q15M PRN BUCCAL DECREASED GLUCOSE; Start 08/14/16 at 15: 30 Diagnostic Test (Pha) (Accu-Chek) 1 ea 02 XX Last administered on 09/07/16 02: 40; Admin Dose 1 EA; Start 08/16/16 at 02:00 Ondansetron HCl (Zofran Inj) 4 mg Q4H PRN IV NAUSEA AND/OR VOMITING Last administered on 08/22/16 09:34; Admin Dose 4 MG; Start 08/16/16 at 09:30 Ondansetron HCl (Zofran Odt) 4 mg Q6H PRN ODT NAUSEA; Start 08/16/16 at 09:30 Lactobacillus Acidophilus (Florajen3 Capsule) 1 each BID PO Last administered on 09/09/16 08:55; Admin Dose 1 EACH; Start 08/17/16 at 09:00 Atorvastatin Calcium (Lipitor) 10 mg QHS PO Last administered on 09/08/16 20:16 ; Admin Dose 10 MG; Start 08/17/16 at 21:00 Metoprolol Tartrate (Lopressor) 37.5 mg BID PO Last administered on 09/08/16 20 :18; Admin Dose 37.5 MG; Start 08/20/16 at 10:00 Morphine Sulfate (morphine) 1 mg Q2H PRN IV PAIN Last administered on 09/08/16 08:56; Admin Dose 1 MG; Start 08/21/16 at 19:00 Ciprofloxacin (Cipro) 500 mg DAILY@06 NGT Last administered on 09/09/16 06:20; Admin Dose 500 MG; Start 08/27/16 at 06:00 Doxycycline Hyclate (Vibramycin) 100 mg BID NGT Last administered on 09/09/16 08:54; Admin Dose 100 MG; Start 08/26/16 at 09:00 Insulin Glargine (Lantus) 10 unit QHS SC Last administered on 09/08/16 20:34; Admin Dose 10 UNIT; Start 08/29/16 at 21:00 Aspirin (Aspirin) 81 mg DAILY PO Last administered on 09/09/16 08:53; Admin Dose 81 MG; Start 09/04/16 at 09:30 Clopidogrel Bisulfate (plaVIX) 75 mg DAILY PO Last administered on 09/09/16 08: 54; Admin Dose 75 MG; Start 09/04/16 at 09:30 Apixaban (Eliquis) 2.5 mg BID PO Last administered on 09/09/16 08:54; Admin Dose 2.5 MG; Start 09/04/16 at 21:00 CELESTE BHATT MD Sep 09, 2016 13:45
[2016-09-09] MEDS: TAMSULOSIN (SR) 0.4 MG CAP PO SCH (20:25)
[2016-09-09] MEDS: ATORVASTATIN 10 MG TAB PO SCH (20:27)
[2016-09-09] MEDS: INSULIN GLARGINE [LANtus] 3 ML PEN SC SCH (20:51)
[2016-09-10] MEDS: ACCU-CHEK XX SCH (02:00)
[2016-09-10] MEDS: CIPROFLOXACIN 500 MG TAB NGT SCH (05:14)
[2016-09-10] MEDS: HYDROCODONE/APAP (5/325) TAB PO PRN (05:16)
[2016-09-10 07:52] VITALS: BP 149/68; RESP 18
--- NOTE | 2016-09-10 08:03 | RADRPT ---
PROCEDURE: US bilateral upper extremity Venous. CLINICAL INDICATION: End-stage renal disease, vein mapping TECHNIQUE: Multiple sonographic images of the bilateral upper lower extremity deep an superficial venous system was obtained utilizing grayscale, color-flow, compressive sonography and doppler imagi ng with augmentation. Measurements were performed. The images were reviewed on a PACS workstation. COMPARISON: None. FINDINGS: RIGHT Right basilic vein size: Proximal: 9.9 mm Mid aspect: 8.3 mm, thrombosed Distal: 3.5 mm Right basilic vein size in the forearm: Proximal: 1.5 mm Mid aspect: 1.2 mm Distal: 1.0 mm Right cephalic vein size: Proximal: 1.6 mm Mid aspect: 1.6 mm Distal: 1.8 mm Right cephalic vein size in the forearm: Proximal: 2.1 mm Mid aspect: 1.6 mm Distal: 1.0 mm LEFT Left basilic vein size: Proximal: 4.0 mm Mid aspect: 2.0 mm Distal: 2.0 mm Left basilic vein size in the forearm: Proximal: 1.2 mm Mid aspect: 1.0 mm Distal: 0.8 mm Left cephalic vein size: Proximal: 1.2 mm Mid aspect: 1.4 mm Distal: 1.2 mm Left cephalic vein size in the forearm: Proximal: 1.1 mm Mid aspect: 0.9 mm Distal: 1.1 mm IMPRESSION: Vein mapping as described. Thrombosed right upper arm mid basilic vein. RPTAT: AA .Josh Coe MD, MD Date Time Electronically viewed and signed by .Josh Coe MD, on 09/10/2016 08:03 .S/
--- NOTE | 2016-09-10 08:04 | RADRPT ---
PROCEDURE: US upper extremity arterial. CLINICAL INDICATION: Pain, renal failure TECHNIQUE: Multiple sonographic images of the bilateral upper extremity arteries was obtained util izing grayscale, color-flow, compressive sonography and doppler imaging. The images were reviewed o n a PACS workstation. COMPARISON: None. FINDINGS: Velocities and waveforms were obtained as described below. Right arm Right subclavian artery: 99 cm/s; triphasic waveforms Right axillary artery: 84 cm/s; triphasic waveforms Right brachial artery: 83 cm/s; triphasic waveforms Right radial artery: 64 cm/s; biphasic waveforms Right ulnar artery: 97 cm/s; biphasic waveforms Left arm Left subclavian artery: 99 cm/s; triphasic waveforms Left axillary artery: 67 cm/s; triphasic waveforms Left brachial artery: 103 cm/s; triphasic waveforms Left radial artery: 97 cm/s; biphasic waveforms Left ulnar artery: 97 cm/s; biphasic waveforms IMPRESSION: Unremarkable bilateral upper extremity arterial Doppler ultrasound. RPTAT: AA .Josh Coe MD, MD Date Time Electronically viewed and signed by .Josh Coe MD, on 09/10/2016 08:04 .S/
[2016-09-10] MEDS: INSULIN ASPART [NOVOLOG] 3 ML PEN SC SCH ×4 (08:15→21:00)
--- NOTE | 2016-09-10 08:20 | PN ---
Date/Time of Note Date/Time of Note DATE: 09/10/16 TIME: 08:17 Assessment/Plan VTE Prophylaxis VTE Prophylaxis Intervention: other Lines/Catheters IV C[facility]ter Type (from [facility]): Permacath Urinary Cath still in place: No Assessment/Plan Chief Complaint/Hosp Course 1. ESRD on maintenance hemodialysis [facility] Mclean . Betty will order hemodialysis for tomorrow. 2. CAD he has had NSTEMI , he had a coronary angiogram and had 2 stents placed in the LAD. aspirin and Plavix have been restarted. 3. IDDM , his blood sugars have been under control. 4. PAD , gangrene of R foot 4th toe . Vascular surgery says that we can wait to do an amputation . 5. cellulitis of R lower leg , improving on antibiotics. 6. postural hypotension . 7. Atrial fib/flutter, Eliquis has been restarted. 8. Depression , he seems better . I spoke with his daughter today and she says that he seems in better spirits today. She says that his depression varies from day to day but today he seems better.. 9. CVA , R frontal lobe infarct with L hemiparesis and slurred speech , improved . 10. dysphagia . He is able to swallow and says that he is eating more; however , the speech therapist thinks that he is having more trouble with liquids and wants to do a video swallowing study which she ordered. 11. Discharge planning. We are planning on transferring him to [facility]. This will hopefully occur in the next day or 2. 12. He is being dialyzed via a left internal jugular permacath. This catheter seems to be working well. 13. He is becoming more anemic. I will resume Epogen injections. Problems: Subjective 24 Hr Interval Summary Free Text/Dictation He is sleeping this morning. He rouses easily to verbal stimuli and says she feels okay. Constitutional: no complaints Eyes: no complaints Respiratory: no complaints Cardiovascular: no complaints Gastrointestinal: no complaints Genitourinary: no complaints Neurologic: focal-weakness Exam/Review of Systems Vital Signs Vitals Vital Signs Date Time Temp Pulse Resp B/P Pulse Ox O2 Delivery O2 Flow Rate FiO2 09/10/16 07:52 97.5 69 18 149/68 98 Intake and Output 09/09/16 09/09/16 09/10/16 15:00 23:00 07:00 Intake Total 500 ml 420 ml 180 ml Output Total 3000 ml 125 ml Balance -2500 ml 420 ml 55 ml Exam He has a left below the knee amputation and the right leg has a gangrenous fourth toe. The right leg otherwise looks normal the cellulitis he has had is resolved. Neck: non-tender, supple Respiratory: clear to auscultation, normal air movement Cardiovascular: irregular rhythm Gastrointestinal: non-tender, soft Musculoskeletal: other Results Result Diagram: 09/09/16 0445 09/09/165 Results 24 hrs Laboratory Tests Test 09/09/16 08:32 09/09/16 12:13 09/09/16 17:21 09/09/16 20:46 Bedside Glucose 134 118 124 154 Test 09/10/16 05:50 C-Reactive Protein 5.3 H Medications Medications Current Medications Acetaminophen/ Hydrocodone Bitart ([place] (5/325)) 1 tab Q6H PRN PO MODERATE PAIN LEVEL 4-6 Last administered on 09/10/16 05:16; Admin Dose 1 TAB; Start 08/14 at 14:30 Zolpidem Tartrate (Ambien) 5 mg QHS PRN PO SLEEP; Start 08/14/16 at 14:30 Acetaminophen (Tylenol Tab) 650 mg Q4 PRN PO PAIN AND OR ELEVATED TEMP; Start 08/14/16 at 14:30 Ascorbic Acid (Vitamin C) 500 mg DAILY PO Last administered on 09/09/16 08:54; Admin Dose 500 MG; Start 08/15/16 at 09:00 Bisacodyl (Dulcolax Supp) 10 mg DAILY PRN SC BM; Start 08/14/16 at 14:30 Calcitriol (Rocaltrol) 0.25 mcg DAILY PO Last administered on 09/09/16 08:53; Admin Dose 0.25 MCG; Start 08/15/16 at 09:00 Loratadine (Claritin) 10 mg DAILY PO Last administered on 09/09/16 08:54; Admin Dose 10 MG; Start 08/15/16 at 09:00 Multivit/Ca Carb/ B Cmplx/FA/Prenat (Sarika-Nahomi) 1 tab DAILY PO Last administered on 09/09/16 08:53; Admin Dose 1 TAB; Start 08/15/16 at 09:00 Saccharomyces Boulardii (Florastor) 500 mg BID PO Last administered on 20:25; Admin Dose 500 MG; Start 08/14/16 at 21:00 Tamsulosin HCl (Flomax) 0.4 mg HS PO Last administered on 09/09/16 20:25; Admin Dose 0.4 MG; Start 08/14/16 at 21:00 Miscellaneous Information 1 ea NOTE XX ; Start 08/14/16 at 15:30 Glucose (Glutose) 15 gm Q15M PRN PO DECREASED GLUCOSE; Start 08/14/16 at 15:30 Glucose (Glutose) 22.5 gm Q15M PRN PO DECREASED GLUCOSE; Start 08/14/16 at 15:30 Dextrose (D50w Syringe) 25 ml Q15M PRN IV DECREASED GLUCOSE Last administered on 08/28/16 23:45; Admin Dose 25 ML; Start 08/14/16 at 15:30 Dextrose (D50w Syringe) 50 ml Q15M PRN IV DECREASED GLUCOSE Last administered on 08/17/16 21:14; Admin Dose 50 ML; Start 08/14/16 at 15:30 Glucagon (Glucagen) 1 mg Q15M PRN IM DECREASED GLUCOSE; Start 08/14/16 at 15:30 Glucose (Glutose) 15 gm Q15M PRN BUCCAL DECREASED GLUCOSE; Start 08/14/16 at 15: 30 Diagnostic Test (Pha) (Accu-Chek) 1 ea 02 XX Last administered on 09/07/16 02: 40; Admin Dose 1 EA; Start 08/16/16 at 02:00 Ondansetron HCl (Zofran Inj) 4 mg Q4H PRN IV NAUSEA AND/OR VOMITING Last administered on 08/22/16 09:34; Admin Dose 4 MG; Start 08/16/16 at 09:30 Ondansetron HCl (Zofran Odt) 4 mg Q6H PRN ODT NAUSEA; Start 08/16/16 at 09:30 Lactobacillus Acidophilus (Florajen3 Capsule) 1 each BID PO Last administered on 09/09/16 20:29; Admin Dose 1 EACH; Start 08/17/16 at 09:00 Atorvastatin Calcium (Lipitor) 10 mg QHS PO Last administered on 09/09/16 20:27 ; Admin Dose 10 MG; Start 08/17/16 at 21:00 Metoprolol Tartrate (Lopressor) 37.5 mg BID PO Last administered on 09/09/16 20 :25; Admin Dose 37.5 MG; Start 08/20/16 at 10:00 Morphine Sulfate (morphine) 1 mg Q2H PRN IV PAIN Last administered on 09/08/16 08:56; Admin Dose 1 MG; Start 08/21/16 at 19:00 Ciprofloxacin (Cipro) 500 mg DAILY@06 NGT Last administered on 09/10/16 05:14; Admin Dose 500 MG; Start 08/27/16 at 06:00 Doxycycline Hyclate (Vibramycin) 100 mg BID NGT Last administered on 09/09/16 20:26; Admin Dose 100 MG; Start 08/26/16 at 09:00 Insulin Glargine (Lantus) 10 unit QHS SC Last administered on 09/09/16 20:51; Admin Dose 10 UNIT; Start 08/29/16 at 21:00 Aspirin (Aspirin) 81 mg DAILY PO Last administered on 09/09/16 08:53; Admin Dose 81 MG; Start 09/04/16 at 09:30 Clopidogrel Bisulfate (plaVIX) 75 mg DAILY PO Last administered on 09/09/16 08: 54; Admin Dose 75 MG; Start 09/04/16 at 09:30 Apixaban (Eliquis) 2.5 mg BID PO Last administered on 09/09/16 20:26; Admin Dose 2.5 MG; Start 09/04/16 at 21:00 CELESTE BHATT MD Sep 10, 2016 08:20
[2016-09-10] MEDS: APIXABAN 5 MG TABLET PO SCH ×2 (08:52→21:18)
[2016-09-10] MEDS: CREON (24K-76K-120K) 1 CAP PO SCH ×3 (08:52→17:37)
[2016-09-10] MEDS: CLOPIDOGREL 75 MG TAB PO SCH (08:52)
[2016-09-10] MEDS: ASPIRIN 81 MG TAB PO SCH (08:53)
[2016-09-10] MEDS: L ACIDOPHIL/B LACTIS/B LONGUM CAPSULE PO SCH ×2 (08:53→21:17)
[2016-09-10] MEDS: DOXYCYCLINE 100 MG TAB NGT SCH ×2 (08:53→21:18)
[2016-09-10] MEDS: CALCITRIOL 0.25 MCG CAP PO SCH (08:53)
[2016-09-10] MEDS: ASCORBIC ACID 500 MG TAB PO SCH (08:53)
[2016-09-10] MEDS: CALCIUM ACETATE 667 MG CAP PO SCH ×3 (08:53→17:38)
[2016-09-10] MEDS: LORATADINE 10 MG TAB PO SCH (08:53)
[2016-09-10] MEDS: MULTIVIT/CA CARB/B CMPLX/FA TAB PO SCH (08:53)
[2016-09-10] MEDS: SACCHAROMYCES BOULARDII 250 MG CAP PO SCH ×2 (08:53→21:18)
[2016-09-10] MEDS: METOPROLOL 25 MG TAB PO SCH ×2 (08:54→21:21)
--- NOTE | 2016-09-10 17:59 | RADRPT ---
PROCEDURE: Video-fluoroscopy swallowing study. CLINICAL INDICATION: Dysphagia. TECHNIQUE: Fluoroscopic guided video swallowing study was done in conjunction with the speech ther apist. The study was confined to the oral, pharyngeal, and cervical phases of the swallowing mechani sm. 5.2 minutes of fluoroscopy time was used. 63 series of images were obtained. COMPARISON: No prior study is available for comparison. FINDINGS: There is minimal aspiration during swallowing of mechanical soft. Other trials demonstrated penetra tion with no aspiration. IMPRESSION: 1. Minimal aspiration during swallowing the mechanical soft. Penetration with other trials. 2. Please refer to the speech therapist's recommendations for future feedings. RPTAT: QQ .Teo Serrano MD, MD Date Time Electronically viewed and signed by .Teo Serrano MD, on 09/10/2016 17:58 .R/
[2016-09-10 20:06] VITALS: BP 160/72; RESP 20
[2016-09-10] MEDS: INSULIN GLARGINE [LANtus] 3 ML PEN SC SCH (21:00)
[2016-09-10] MEDS: TAMSULOSIN (SR) 0.4 MG CAP PO SCH (21:17)
[2016-09-10] MEDS: ATORVASTATIN 10 MG TAB PO SCH (21:19)
[2016-09-11] VITALS (8 sets, daily range): BP systolic 108–144; BP diastolic 52–77; PULSE 64–69; RESP 20
[2016-09-11] MEDS: ACCU-CHEK XX SCH (02:00)
[2016-09-11] MEDS: CIPROFLOXACIN 500 MG TAB NGT SCH (06:06)
[2016-09-11] MEDS: INSULIN ASPART [NOVOLOG] 3 ML PEN SC SCH ×3 (07:45→12:01)
--- NOTE | 2016-09-11 09:16 | PDOCDIS ---
Discharge Instructions CONDITION Patient Condition: Fair HOME CARE INSTRUCTIONS: Diet Instructions: Special Diet: regular ACTIVITY: Activity Restrictions: Slowly Increase Activity Rest between Activity Avoid heavy lifting Weight Bearing Bathing Restrictions: Shower FOLLOW UP/APPOINTMENTS Follow-up Plan CELESTE Larios MD Sep 11, 2016 09:16
--- NOTE | 2016-09-11 09:32 | DS ---
Date/Time of Note Date/Time of Note DATE: 09/11/16 TIME: 09:19 Discharge Summary Admission/Discharge Info Admit Date/Time Aug 14, 2016 at 14:49 Discharge Date/Time 09/11/16 Discharge Diagnosis End-stage renal disease Peripheral artery disease, with gangrenous right fourth toe Cerebrovascular accident Coronary artery disease with stent placement Type 2 diabetes mellitus Postural hypotension Right leg cellulitis Depression Patient Condition: Fair Consults Infectious disease, Dr. bo Vascular surgery Dr. Conteh Podiatry Dr. Rubalcava Cardiology Dr. Nunez Neurology Dr. Fontenot Procedures 1. Coronary angiogram with coronary artery angioplasty and stent placement 2. Ligation of right upper arm AV fistula 3. Placement of left internal jugular permacath for hemodialysis Hx of Present Illness This 70-year-old [facility] a gangrenous right fourth toe and a cellulitis of his right lower leg. The patient was started on antibiotics. He was seen by vascular surgery and podiatry. He was followed by infectious disease specialist. On admission the patient was found to have an elevated troponin level and was diagnosed with a an NSTEMI . [facility] went to [facility] and underwent a coronary angiogram. He was found to have 2 significant coronary artery stenoses in the left anterior descending artery. 2 stents were placed. Subsequent to that the patient went into atrial flutter. Then the patient was going to go to surgery to have his right fourth toe amputated because of gangrene; however, he had a stroke. He had left sided weakness and expressive aphasia and dysphasia. On CAT scan he was found to have a right CVA frontal lobe. He was started on aspirin and Plavix for the stents and then Eliquis for the atrial flutter. He was seen by speech therapy and evaluated and placed on a pured diet with thin liquids. He will continue that at the assisted. He is swallowing now and is able to take in oral medications and food. If he should have a problem with this then we will evaluate for a percutaneous gastric feeding tube. The patient will continue his current medication. He will start outpatient hemodialysis at present he is [facility]. I will follow him at that unit. He will be transferred today to [facility]. The patient is now a DNR. Hospital Course 1. ESRD on maintenance hemodialysis [facility] . I will order hemodialysis for tomorrow. 2. CAD he has had NSTEMI , he had a coronary angiogram and had 2 stents placed in the LAD. aspirin and Plavix have been restarted. 3. IDDM , his blood sugars have been under control. 4. PAD , gangrene of R foot 4th toe . Vascular surgery says that we can wait to do an amputation . 5. cellulitis of R lower leg , improving on antibiotics. 6. postural hypotension . 7. Atrial fib/flutter, Eliquis has been restarted. 8. Depression , he seems better . I spoke with his daughter today and she says that he seems in better spirits today. She says that his depression varies from day to day but today he seems better.. 9. CVA , R frontal lobe infarct with L hemiparesis and slurred speech , improved . 10. dysphagia . He is able to swallow and says that he is eating more; however , the speech therapist thinks that he is having more trouble with liquids and wants to do a video swallowing study which she ordered. 11. Discharge planning. We are planning on transferring him to [facility]. This will hopefully occur in the next day or 2. 12. He is being dialyzed via a left internal jugular permacath. This catheter seems to be working well. 13. He is becoming more anemic. I will resume Epogen injections. Home Meds Reported Medications Tamsulosin Hcl* (Tamsulosin Hcl*) 0.4 Mg Cap.er.24h, 0.4 MG PO HS, CAP 03/18/16 Bisacodyl (Dulcolax) 10 Mg Supp.rect, 10 MG RC DAILY Y for BM, SUPP.RECT 03/18/16 [Fosrenol] No Conflict Check, 1 GM PO TID 03/18/16 Multivit/Ca Carb/B Cmplx/Fa* (Sarika-Nahomi*) 1 Tab Tab, 1 TAB PO DAILY, TAB 03/18/16 Cholecalciferol* (Vitamin D3*) 1,000 Unit Tablet, 63553 UNIT PO QMONTHLY, TAB EVERY 8TH OF THE MONTH 03/18/16 Saccharomyces Boulardii* (Florastor*) 250 Mg Cap, 500 MG PO BID, CAP 03/18/16 Atorvastatin Calcium* (Atorvastatin Calcium*) 20 Mg Tablet, 20 MG PO QHS, #30 TAB 03/18/16 Ascorbic Acid* (Vitamin C*) 500 Mg Capsule.sa, 500 MG PO DAILY, CAP 02/25/16 Multivitamin* (Daily Value*) 1 Each Tablet, 1 TAB PO DAILY, TAB 02/25/16 Hydrocodone/Acetaminophen ([place] 5-325 Tablet) 1 Each Tablet, 1 EACH PO Q4H WHILE AWAKE Y for SEVERE PAIN LEVEL 7-10, TAB 02/25/16 Insulin Aspart* (Novolog Insulin Pen*) 100 Unit/Ml Soln, 0 SC AC MEALS AND BEDTIME, EA 61-149 =0 UNITS 150-200 =2 UNITS 201-250 =4 UNITS 251-300 =6 UNITS 301-350 =8 UNITS 351-400 =10UNITS OVER 400 GIVE 12 UNITS AND CALL MD UNDER 60 CALL MD 02/25/16 Loratadine* (Loratadine*) 10 Mg Tablet, 10 MG PO DAILY, #30 TAB 02/25/16 Insulin Glargine* (Lantus*) 100 Unit/Ml Soln, 20 UNIT SC QHS, #1 VIAL 02/25/16 Atorvastatin Calcium* (Atorvastatin Calcium*) 20 Mg Tablet, 20 MG PO QHS, #30 TAB 02/25/16 Acetaminophen* (Acetaminophen*) 650 Mg Tablet, 650 MG PO Q4 Y for PAIN AND OR ELEVATED TEMP, #30 TAB 02/25/16 Saccharomyces Boulardii* (Florastor*) 250 Mg Cap, 500 MG PO BID, CAP 01/06/16 Igfbgd-Vazzpcpu-Wlbdary* (Creon DR* 24,000) 24,000 L-76,000-120,000 Unit Capsule.dr, 2 CAP PO WITH MEALS, CAP 01/06/16 Calcium Acetate* (Calcium Acetate*) 667 Mg Capsule, 667 MG PO WITH MEALS, #30 CAP 01/06/16 Calcitriol* (Calcitriol*) 0.25 Mcg Capsule, 0.25 MCG PO DAILY, CAP 01/06/16 Aspirin (Aspirin) 81 Mg Chew, 81 MG PO DAILY, TAB.CHEW 01/06/16 Primary Care Provider Migue Bhatt MD Pending Labs Laboratory Tests Test 09/10/16 12:18 09/10/16 17:37 09/10/16 21:25 09/11/16 07:51 Bedside Glucose 159mg/dL (70-220) 160mg/dL (70-220) 159mg/dL (70-220) 151mg/dL (70-220) MIGUE BHATT MD Sep 11, 2016 09:31
[2016-09-11] MEDS: ASCORBIC ACID 500 MG TAB PO SCH (09:35)
[2016-09-11] MEDS: LORATADINE 10 MG TAB PO SCH (09:35)
[2016-09-11] MEDS: L ACIDOPHIL/B LACTIS/B LONGUM CAPSULE PO SCH (09:36)
[2016-09-11] MEDS: SACCHAROMYCES BOULARDII 250 MG CAP PO SCH (09:36)
[2016-09-11] MEDS: CALCITRIOL 0.25 MCG CAP PO SCH (09:36)
[2016-09-11] MEDS: DOXYCYCLINE 100 MG TAB NGT SCH (09:36)
[2016-09-11] MEDS: CALCIUM ACETATE 667 MG CAP PO SCH ×2 (09:37→12:01)
[2016-09-11] MEDS: APIXABAN 5 MG TABLET PO SCH (09:37)
[2016-09-11] MEDS: ASPIRIN 81 MG TAB PO SCH (09:37)
[2016-09-11] MEDS: CREON (24K-76K-120K) 1 CAP PO SCH ×2 (09:38→12:01)
[2016-09-11] MEDS: MULTIVIT/CA CARB/B CMPLX/FA TAB PO SCH (09:38)
[2016-09-11] MEDS: CLOPIDOGREL 75 MG TAB PO SCH (09:39)
[2016-09-11] MEDS: METOPROLOL 25 MG TAB PO SCH (09:39)
== END 2016-09-11 14:40 | DRG 246 ==
LOC: FTE 11:37 → TEL 14:49 → ICU 08-17 18:50 → TEL 08-18 13:18 → MS2 08-24 10:41
PROVIDERS: ADMIT Internal Medicine; ATTEND Internal Medicine
PROC: 4A023N7 Measurement of Cardiac Sampling and Pressure, Left Heart, Percutaneous Approach (ICD-10-PCS; 2016-08-17)
PROC: B211YZZ Fluoroscopy of Multiple Coronary Arteries using Other Contrast (ICD-10-PCS; 2016-08-17)
PROC: 027035Z Dilation of Coronary Artery, One Artery with Two Drug-eluting Intraluminal Devices, Percutaneous Approach (ICD-10-PCS; principal; 2016-08-17 16:00)
PROC: 5A1D60Z (ICD-10-PCS; 2016-08-17 16:00)
PROC: 0HQBXZZ Repair Right Upper Arm Skin, External Approach (ICD-10-PCS; 2016-09-02)
PROC: 0HQBXZZ Repair Right Upper Arm Skin, External Approach (ICD-10-PCS; 2016-09-02)
PROC: 06HN33Z Insertion of Infusion Device into Left Femoral Vein, Percutaneous Approach (ICD-10-PCS; 2016-09-02)
PROC: 05HN33Z Insertion of Infusion Device into Left Internal Jugular Vein, Percutaneous Approach (ICD-10-PCS; 2016-09-03)
PROC: B514YZA Fluoroscopy of Left Jugular Veins using Other Contrast, Guidance (ICD-10-PCS; 2016-09-03)
DX: I21.4 Non-ST elevation (NSTEMI) myocardial infarction (principal); N18.6 End stage renal disease; I63.9 Cerebral infarction, unspecified; E11.52 Type 2 diabetes mellitus with diabetic peripheral angiopathy with gangrene; I48.92 Unspecified atrial flutter; I12.0 Hypertensive chronic kidney disease with stage 5 chronic kidney disease or end stage renal disease; E11.22 Type 2 diabetes mellitus with diabetic chronic kidney disease; I48.91 Unspecified atrial fibrillation; I25.82 Chronic total occlusion of coronary artery; R47.01 Aphasia; L03.115 Cellulitis of right lower limb; G81.94 Hemiplegia, unspecified affecting left nondominant side; T82.898A Other specified complication of vascular prosthetic devices, implants and grafts, initial encounter; E11.42 Type 2 diabetes mellitus with diabetic polyneuropathy; D63.1 Anemia in chronic kidney disease; I25.10 Atherosclerotic heart disease of native coronary artery without angina pectoris; I95.1 Orthostatic hypotension; F32.9 Major depressive disorder, single episode, unspecified; R13.10 Dysphagia, unspecified; E78.5 Hyperlipidemia, unspecified; R19.7 Diarrhea, unspecified; L89.619 Pressure ulcer of right heel, unspecified stage; N40.0 Benign prostatic hyperplasia without lower urinary tract symptoms; Z89.512 Acquired absence of left leg below knee; Z53.09 Procedure and treatment not carried out because of other contraindication; Z66 Do not resuscitate; Y83.2 Surgical operation with anastomosis, bypass or graft as the cause of abnormal reaction of the patient, or of later complication, without mention of misadventure at the time of the procedure; Y92.238 Other place in hospital as the place of occurrence of the external cause; Z99.2 Dependence on renal dialysis; Z79.4 Long term (current) use of insulin
CPT/HCPCS: 36415; 36558; 70450; 71010; 74230; 75635; 76942; 80048; 80053; 80061; 80076; 80162; 80202; 82947; 82962; 83036; 83605; 83735; 84100; 84132; 84443; 84484; 85025; 85610; 85651; 85730; 86140; 86704; 86709; 86803; 87040; 87045; 87075; 87081; 87340; 90935; 92507; 92523; 92526; 92610; 92611; 93005; 93306; 93458; 93880; 93922; 93923; 93970; 93971; 96374; 96375; 97110; 97162; 97166; 97530; C1725; C1874; C1887; C1894; C9600; J0461; J0690; J1100; J1327; J1644; J1815; J2250; J2270; J2405; J2543; J2765; J3010; J3370; J7040; J7042; J7050; Q4081; Q9967

== ENCOUNTER 2016-09-14 11:27 | Inpatient (IN) | payer MEDICARE, BC ==
[~2016-09-14] VITALS: Ht 190.5 cm; Wt 81.1 kg
[2016-09-14] VITALS (14 sets, daily range): BP systolic 115–169; BP diastolic 63–73; PULSE 67–79; RESP 20; TEMP 98.5; Ht 190.5 cm; Wt 81.1 kg
[2016-09-14] MEDS ORDERED: SOD CHLORIDE 0.9% 1,000 ML IV STA (11:45)
[2016-09-14] MEDS ORDERED: PANTOPRAZOLE IV 80 MG in SOD CHLORIDE 0.9% 100 ML IV STA (11:45)
[2016-09-14] MEDS ORDERED: PANTOPRAZOLE IV 80 MG in SOD CHLORIDE 0.9% 100 ML IVPB STA (11:45)
[2016-09-14] MEDS ORDERED: LOPERAMIDE 2 MG CAP PO ONE (12:00)
[2016-09-14 12:01] LABS: ADD SCAN DIFF NO
[2016-09-14 12:06] LABS: BASOPHILS % 0.3 % (0.0-2.0); EOSINOPHILS # 0.3 10^3/ul (0.0-0.5); EOSINOPHILS % 2.8 % (0.0-7.0); HEMATOCRIT 30.4 % (42.0-52.0); HEMOGLOBIN 9.7 g/dl (14.0-18.0); LYMPHOCYTES # 1.2 10^3/ul (0.8-2.9); LYMPHOCYTES % 12.1 % (15.0-51.0); MEAN CORPUSCULAR HEMOGLOBIN 29.4 pg (29.0-33.0); MEAN CORPUSCULAR HGB CONC 31.9 g/dl (32.0-37.0); MEAN CORPUSCULAR VOLUME 92.1 fl (82.0-101.0); MEAN PLATELET VOLUME 9.9 fl (7.4-10.4); MONOCYTE # 0.6 10^3/ul (0.3-0.9); MONOCYTES % 5.6 % (0.0-11.0); NEUTROPHILS % 78.5 % (39.0-77.0); PLATELET COUNT 169 10^3/UL (140-415); RED CELL DISTRIBUTION WIDTH 15.8 % (11.5-14.5); WHITE BLOOD COUNT 10.2 10^3/ul (4.8-10.8)
[2016-09-14 12:26] LABS: INR 1.25; PROTIME 15.8 Sec (12.2-14.2); PT RATIO 1.2
[2016-09-14 12:27] LABS: PARTIAL THROMBOPLASTIN TIME 33.5 Sec (25.0-35.0)
[2016-09-14 12:33] LABS: ALBUMIN 3.4 g/dl (3.3-4.9); ALBUMIN/GLOBULIN RATIO 1.09; CALCIUM 8.2 mg/dl (8.4-10.2); CREATININE 7.44 mg/dl (0.61-1.24); POTASSIUM 4.6 mmol/L (3.5-5.1); TOTAL PROTEIN 6.5 g/dl (6.1-8.1)
[2016-09-14 12:40] LABS: TROPONIN-I 0.082 ng/ml (0.00-0.12)
[2016-09-14] MEDS ORDERED: ONDANSETRON 4 MG INJ IV STA (12:43)
[2016-09-14] MEDS ORDERED: ACETAMINOPHEN 325 MG TAB PO PRN ×3 (13:30→18:30)
[2016-09-14] MEDS ORDERED: ONDANSETRON 4 MG INJ IV PRN ×2 (13:30→16:30)
--- NOTE | 2016-09-14 13:41 | RADRPT ---
PROCEDURE: XR Chest. CLINICAL INDICATION: Shortness of breath. Upper GI bleed. TECHNIQUE: Single frontal view. COMPARISON: 08/22/2016. FINDINGS: There is a tunneled left internal jugular vein dialysis catheter in satisfactory position with the t ip in the upper right atrium. The lungs are clear. Previously noted nasogastric feeding tube has be en removed. Contrast is present in the gastrointestinal tract from a prior study. The heart size is normal. There is no pleural effusion. There is no pneumothorax. IMPRESSION: 1. Dialysis catheter in satisfactory position. 2. Nasogastric feeding tube removed. 3. Contrast in the GI tract from a prior study. 4. Otherwise normal chest x-ray. RPTAT: QQ .Teo Serrano MD, MD Date Time Electronically viewed and signed by .Teo Serrano MD, on 09/14/2016 13:41 .R/
--- NOTE | 2016-09-14 14:13 | ERA ---
ER Documentation Chief Complaint Date/Time DATE: 09/14/16 TIME: 14:06 Chief Complaint NAUSEA AND VOMITING COFFEE GROUND EMESIS SINCE TODAY. NO DIZZINESS NOTED HPI 70-year-old male with a history of CAD with recent placement of stents, hypertension, ESRD on hemodialysis, diabetes, and right lower extremity cellulitis with recent amputation of the toes presenting from his correction with coffee-ground emesis that started this morning. He has had multiple episodes of vomiting. He states that earlier he felt some discomfort in his epigastric region, not described as pain. He describes it as a nauseated feeling. He denies any dizziness, chest pain, shortness of breath, diarrhea or constipation. Currently has no symptoms. Of note, patient is DNR. ROS All systems reviewed and are negative except as per history of present illness. Medications Home Meds Reported Medications Tamsulosin Hcl* (Tamsulosin Hcl*) 0.4 Mg Cap.er.24h, 0.4 MG PO HS, CAP 03/18/16 Bisacodyl (Dulcolax) 10 Mg Supp.rect, 10 MG RC DAILY Y for BM, SUPP.RECT 03/18/16 Multivit/Ca Carb/B Cmplx/Fa* (Sarika-Nahomi*) 1 Tab Tab, 1 TAB PO DAILY, TAB 03/18/16 Cholecalciferol* (Vitamin D3*) 1,000 Unit Tablet, 14883 UNIT PO QMONTHLY, TAB EVERY 8TH OF THE MONTH 03/18/16 Atorvastatin Calcium* (Atorvastatin Calcium*) 20 Mg Tablet, 20 MG PO QHS, #30 TAB 03/18/16 Ascorbic Acid* (Vitamin C*) 500 Mg Capsule.sa, 500 MG PO DAILY, CAP 02/25/16 Multivitamin* (Daily Value*) 1 Each Tablet, 1 TAB PO DAILY, TAB 02/25/16 Hydrocodone/Acetaminophen (Wishram 5-325 Tablet) 1 Each Tablet, 1 EACH PO Q4H WHILE AWAKE Y for SEVERE PAIN LEVEL 7-10, TAB 02/25/16 Insulin Aspart* (Novolog Insulin Pen*) 100 Unit/Ml Soln, 0 SC AC MEALS AND BEDTIME, EA 61-149 =0 UNITS 150-200 =2 UNITS 201-250 =4 UNITS 251-300 =6 UNITS 301-350 =8 UNITS 351-400 =10UNITS OVER 400 GIVE 12 UNITS AND CALL MD UNDER 60 CALL 02/25/16 Loratadine* (Loratadine*) 10 Mg Tablet, 10 MG PO DAILY, #30 TAB 02/25/16 Insulin Glargine* (Lantus*) 100 Unit/Ml Soln, 20 UNIT SC QHS, #1 VIAL 02/25/16 Atorvastatin Calcium* (Atorvastatin Calcium*) 20 Mg Tablet, 20 MG PO QHS, #30 TAB 02/25/16 Acetaminophen* (Acetaminophen*) 650 Mg Tablet, 650 MG PO Q4 Y for PAIN AND OR ELEVATED TEMP, #30 TAB 02/25/16 Saccharomyces Boulardii* (Florastor*) 250 Mg Cap, 500 MG PO BID, CAP 01/06/16 Xurysw-Kosvcwjl-Symcokc* (Nisha DANGELO* 24,000) 24,000 L-76,000-120,000 Unit Capsule.dr, 2 CAP PO WITH MEALS, CAP 01/06/16 Calcium Acetate* (Calcium Acetate*) 667 Mg Capsule, 667 MG PO WITH MEALS, #30 CAP 01/06/16 Calcitriol* (Calcitriol*) 0.25 Mcg Capsule, 0.25 MCG PO DAILY, CAP 01/06/16 Aspirin (Aspirin) 81 Mg Chew, 81 MG PO DAILY, TAB.CHEW 01/06/16 Discontinued Reported Medications [Fosrenol] No Conflict Check, 1 GM PO TID 03/18/16 Saccharomyces Boulardii* (Florastor*) 250 Mg Cap, 500 MG PO BID, CAP 03/18/16 Allergies Allergies: Coded Allergies: No Known Allergies (Verified Allergy, Mild, 09/14/16) PMhx/Soc History of Surgery: Yes (ctarct both eyes,Left BKA,) Anesthesia Reaction: No Hx Neurological Disorder: No Hx Respiratory Disorders: No Hx Cardiac Disorders: Yes (HTN) Hx Psychiatric Problems: No Hx Miscellaneous Medical Probl: Yes (L BKA, DIALYSIS ) Hx Alcohol Use: Yes (once in a while) Hx Substance Use: No Hx Tobacco Use: No Smoking Status: Never smoker FmHx Family History: No diabetes Physical Exam Vitals Vital Signs Date Time Temp Pulse Resp B/P Pulse Ox O2 Delivery O2 Flow Rate FiO2 09/14/16 13:13 98.5 74 20 146/65 100 Nasal Cannula 3.0 09/14/16 11:48 Nasal Cannula 3 09/14/16 11:34 98.8 68 20 117/56 98 Physical Exam Const: Chronically ill-appearing, no apparent distress, nontoxic Head: Atraumatic Eyes: PERRLA, EOMI, no scleral icterus ENT: Dry mucous membranes Neck: Full range of motion..~ No meningismus. Resp: Clear to auscultation bilaterally Cardio: Regular rate and rhythm, no murmurs. 2+ radial pulses bilateral Abd: Soft, non tender, non distended. Hyperactive bowel sounds Skin: Multiple bruises noted all over his body. Back: No midline or flank tenderness Ext: No cyanosis, or edema. Right lower extremity with dressings in place. Left BKA Neur: Awake and alert and oriented 3, cranial nerves intact Psych: Normal Mood and Affect Result Diagram: 09/14/16 1150 09/14/16 1150 Results 24 hrs Laboratory Tests Test 09/14/16 11:50 White Blood Count 10.210^3/ul Red Blood Count 3.3010^6/ul Hemoglobin 9.7g/dl Hematocrit 30.4% Mean Corpuscular Volume 92.1fl Mean Corpuscular Hemoglobin 29.4pg Mean Corpuscular Hemoglobin Concent 31.9g/dl Red Cell Distribution Width 15.8% Platelet Count 91084^3/UL Mean Platelet Volume 9.9fl Neutrophils % 78.5% Lymphocytes % 12.1% Monocytes % 5.6% Eosinophils % 2.8% Basophils % 0.3% Nucleated Red Blood Cells % 0.0/100WBC Neutrophils # 8.010^3/ul Lymphocytes # 1.210^3/ul Monocytes # 0.610^3/ul Eosinophils # 0.310^3/ul Basophils # 0.010^3/ul Nucleated Red Blood Cells # 0.010^3/ul Prothrombin Time 15.8Sec Prothrombin Time Ratio 1.2 INR International Normalized Ratio 1.25 Activated Partial Thromboplast Time 33.5Sec Sodium Level 137mmol/L Potassium Level 4.6mmol/L Chloride Level 98mmol/L Carbon Dioxide Level 28mmol/L Anion Gap 16 Blood Urea Nitrogen 60mg/dl Creatinine 7.44mg/dl Glucose Level 135mg/dl Calcium Level 8.2mg/dl Total Bilirubin 0.0mg/dl Direct Bilirubin 0.00mg/dl Indirect Bilirubin 0.0mg/dl Aspartate Amino Transf (AST/SGOT) 30IU/L Alanine Aminotransferase (ALT/SGPT) 24IU/L Alkaline Phosphatase 160IU/L Troponin I 0.082ng/ml Total Protein 6.5g/dl Albumin 3.4g/dl Globulin 3.10g/dl Albumin/Globulin Ratio 1.09 Current Medications Medications (Trade) Dose Ordered Sig/Wale Route PRN Reason Start Time Stop Time Status Last Admin Dose Admin Loperamide HCl 2 mg 2 mg ONCE ONCE PO 09/14/16 12:00 09/14/16 12:01 DC Sodium Chloride 1,000 ml @ 1,000 mls/hr Q1H STAT IV 09/14/16 11:45 09/14/16 12:44 DC 09/14/16 12:00 Pantoprazole 80 mg/Sodium Chloride 100 ml @ 400 mls/hr ONCE STAT IVPB 09/14/16 11:45 09/14/16 11:59 DC 09/14/16 12:32 Pantoprazole/ Sodium Chloride (Protonix Iv/NS) 100 ml @ 10 mls/hr ONCE STAT IV 09/14/16 11:45 09/14/16 21:44 09/14/16 11:45 Ondansetron HCl (Zofran Inj) 4 mg ONCE STAT IV 09/14/16 12:43 09/14/16 12:44 DC 09/14/16 13:01 Ondansetron HCl (Zofran Inj) 4 mg ER BRIDGE PRN IV NAUSEA AND/OR VOMITING 09/14/16 13:30 09/15/16 13:29 Acetaminophen (Tylenol Tab) 650 mg ER BRIDGE PRN PO MILD PAIN/FEVER 09/14/16 13:30 09/15/16 13:29 Procedures/MDM EKG: Rate/Rhythm: Normal Sinus Rhythm QRS, ST, T-waves: Nonspecific T-wave abnormalities, incomplete left bundle branch block, no changes consistent w/ acute ischemia Impression: [No evidence of ischemia or arrhythmia Chest x-ray: IMPRESSION: 1. Dialysis catheter in satisfactory position. 2. Nasogastric feeding tube removed. 3. Contrast in the GI tract from a prior study. 4. Otherwise normal chest x-ray. RPTAT: QQ .Teo Serrano MD, MD Date Time Electronically viewed and signed by .Teo Serrano MD, on 09/14/2016 13:41 Labs CBC: Anemia CMP: Evidence of chronic kidney disease, no evidence of liver disease Troponin within normal limits MDM Patient is presenting with signs and symptoms consistent with an upper GI bleed. He seems hemodynamically stable at this time. He does not have any active hematemesis. Basic labs and type and cross was ordered for 2 units of PRBCs. Patient is on 3 blood thinners, making him a higher risk for bleeding. I have a low suspicion for variceal bleed. Bolus of Protonix was given and he was started on a Protonix infusion. Blood transfusion was initiated in the ED. I spoke with his primary care doctor, Dr. Rhoades, who will admit the patient to telemetry. He will arrange for dialysis. Critical Care Time: 35 minutes Treatments/Evaluations: Close monitoring and treatment of unstable vital signs, cardiorespiratory, and neurologic status, while maintaining tight balance of fluid, respiratory, and cardiac interventions. This time includes discussing the case with the patient and the patients family. This time does not include all procedures stated elsewhere in this record. This time also includes reviewing old records, labs and radiological studies. This time includes examining and re-examining the patient. Additionally, this time also includes arranging care with admitting and consulting physicians. Departure Diagnosis: Primary Impression: Acute upper GI bleed Additional Impressions: Anemia Qualified Code: D50.9 - Iron deficiency anemia, unspecified iron deficiency anemia type Chronic kidney disease Qualified Code: N18.9 - Chronic kidney disease, unspecified stage Condition: Critical SAMARA ORTEGA MD Sep 14, 2016 14:13
[2016-09-14] MEDS ORDERED: GLUCOSE GEL 15 GRAM TUBE PO PRN ×2 (16:30)
[2016-09-14] MEDS ORDERED: NITROGLYCERIN (SL) 0.4 MG TAB SL PRN (16:30)
[2016-09-14] MEDS ORDERED: GLUCAGON 1 MG INJ IM PRN (16:30)
[2016-09-14] MEDS ORDERED: NACL 0.9% 3 ML SYG IV SCH (16:30)
[2016-09-14] MEDS ORDERED: DEXTROSE 50% 50 ML SYRINGE IV PRN ×2 (16:30)
[2016-09-14] MEDS ORDERED: GLUCOSE GEL 15 GRAM TUBE BUCCAL PRN (16:30)
[2016-09-14] MEDS: PANTOPRAZOLE IV 80 MG in SOD CHLORIDE 0.9% 100 ML IV SCH (16:30)
[2016-09-14] MEDS: DEXTROSE 5%-0.45% NACL 1,000 ML IV SCH (16:30)
[2016-09-14] MEDS: INSULIN ASPART [NOVOLOG] 3 ML PEN SC SCH ×2 (17:55→21:00)
[2016-09-14] MEDS ORDERED: BISACODYL 10 MG SUPP PR PRN (18:30)
--- NOTE | 2016-09-14 18:49 | HP ---
Date/Time of Note Date/Time of Note DATE: 09/14/16 TIME: 18:35 Assessment/Plan VTE Prophylaxis VTE Prophylaxis Intervention: contraindicated VTE Contraindication Reason: bleeding Lines/Catheters IV C[facility] Type (from [facility] Peripheral IV Urinary Cath still in place: No Assessment/Plan Chief Complaint/Hosp Course Impression: 1. Upper GI gastrointestinal bleeding 2. End-stage renal disease on maintenance hemodialysis Wednesday and Wednesday 3. Postural hypotension 4. Type 2 diabetes mellitus insulin-dependent 5. Hypertension 6. Peripheral artery disease 7. Right CVA with left hemiparesis 8. Anemia 9. Coronary artery disease status post stent placement 2 weeks ago 10. Atrial flutter Plan: 1. Hemodialysis today 2. Transfuse 1 unit of blood today 3. GI consultation 4. Telemetry 5. Hold aspirin Plavix and Eliquis until after GI endoscopy tomorrow. Problems: HPI/ROS Admit Date/Time Admit Date/Time Sep 14, 2016 at 13:19 Hx of Present Illness Chief complaint: Vomiting blood History of present illness: This 70-year-old man was in his usual state of health until last night he noticed some epigastric pain. Then this morning he had several episodes of vomiting. The vomitus was coffee ground material consistent with gastrointestinal bleeding. The patient at this time was residing at the [facility]. He was transported from there to the [facility] emergency room where he was evaluated. The patient was given intravenous fluid. He was started on a Protonix drip. The patient was just discharged from this hospital 3 days ago. During that admission he had several medical problems. He was initially admitted to the hospital 2 weeks ago because of a gangrenous right fourth toe and cellulitis of the right lower leg. The patient on admission was found to have elevated troponin levels. He underwent a left heart catheterization and had 2 stents placed. The patient was started on aspirin and Plavix after the coronary artery stents were placed. After the left heart catheterization the patient developed atrial flutter with a variable ventricular rate. The patient after 5 days was going to have an amputation of the right fourth toe. He was in preparation for surgery that day and he was found to have altered mental status with a left facial weakness and left arm and leg weakness. He had a CAT scan of the brain which showed a right frontal lobe infarct. The patient was diagnosed with a cerebrovascular accident. In view of this he was eventually started on Eliquis 2.5 mg twice a day. The patient eventually improved enough to be able to [facility] physical therapy. The patient has end-stage renal disease and is on maintenance hemodialysis. He was due for hemodialysis today. ROS Constitutional: improved, no complaints Respiratory: no complaints Cardiovascular: no complaints Gastrointestinal: vomiting Genitourinary: no complaints Musculoskeletal: no complaints Neurologic: focal-weakness PMH/Family/Social Past Medical History Medical History: coronary artery disease, diabetes, high cholesterol, hypertension, pancreatitis, renal disease Past Surgical History He has had several surgeries: 1. Left below the knee amputation for a ischemic ulcer of the left foot 2. Right leg vascular bypass for right foot ischemia. 3. AV fistula for hemodialysis 4. Ligation of AV fistula last week because of bleeding 5. Left internal jugular permacath placed for hemodialysis Past Surgical Hx: no surgical history, angioplasty, endoscopy, other Family History Significant Family History: no pertinent family hx Social History Alcohol Use: none Smoking Status: Never smoker Drug Use: none Exam/Review of Systems Vital Signs Vitals Vital Signs Date Time Temp Pulse Resp B/P Pulse Ox O2 Delivery O2 Flow Rate FiO2 09/14/16 16:14 67 09/14/16 15:23 97.6 20 148/69 100 09/14/16 13:13 Nasal Cannula 3.0 Exam Exam Left below the knee amputation, right foot gangrenous fourth toe. Constitutional: alert, frail, oriented Psych: no complaints Eyes: nl conjunctiva Neck: supple Respiratory: clear to auscultation, normal air movement Cardiovascular: regular rate and rhythm Gastrointestinal: non-tender, soft Neurological: focal weakness, lethargic Labs Result Diagram: 09/14/16 1150 09/14/16 1150 Medications Medications Current Medications Pantoprazole 80 mg/Sodium Chloride 100 ml @ 10 mls/hr Q10H IV ; Start 09/14/16 at 16:30 Dextrose/Sodium Chloride (D5-1/2ns) 1,000 ml @ 50 mls/hr Q20H IV ; Start at 16:30 Diagnostic Test (Pha) (Accu-Chek) 1 ea 02 XX ; Start 09/15/16 at 02:00 Miscellaneous Information 1 ea NOTE XX ; Start 09/14/16 at 16:30 Glucose (Glutose) 15 gm Q15M PRN PO DECREASED GLUCOSE; Start 09/14/16 at 16:30 Glucose (Glutose) 22.5 gm Q15M PRN PO DECREASED GLUCOSE; Start 09/14/16 at 16: 30 Dextrose (D50w Syringe) 25 ml Q15M PRN IV DECREASED GLUCOSE; Start 09/14/16 at 16:30 Dextrose (D50w Syringe) 50 ml Q15M PRN IV DECREASED GLUCOSE; Start 09/14/16 at 16:30 Glucagon (Glucagen) 1 mg Q15M PRN IM DECREASED GLUCOSE; Start 09/14/16 at 16:30 Glucose (Glutose) 15 gm Q15M PRN BUCCAL DECREASED GLUCOSE; Start 09/14/16 at 16 :30 Ondansetron HCl (Zofran Inj) 4 mg Q6H PRN IV NAUSEA AND/OR VOMITING; Start 12/22 at 16:30 Nitroglycerin (Nitroglycerin (Sl Tab) 0.4 Mg) 1 tab Q5M PRN SL CHEST PAIN; Start 09/14/16 at 16:30 Acetaminophen (Tylenol Tab) 650 mg Q6H PRN PO PAIN LEVEL 1-3 OR FEVER; Start at 16:30 Acetaminophen (Tylenol Tab) 650 mg Q4 PRN PO PAIN AND OR ELEVATED TEMP; Start 09/14/16 at 18:30; Status UNV Ascorbic Acid (Vitamin C) 500 mg DAILY PO ; Start 09/15/16 at 09:00; Status UNV Atorvastatin Calcium (Lipitor) 20 mg QHS PO ; Start 09/14/16 at 21:00; Status UNV Atorvastatin Calcium (Lipitor) 20 mg QHS PO ; Start 09/14/16 at 21:00; Status UNV Bisacodyl (Dulcolax Supp) 10 mg DAILY PRN [place] BM; Start 09/14/16 at 18:30; Status UNV CELESTE BHATT MD Sep 14, 2016 18:45
[2016-09-14] MEDS ORDERED: ATORVASTATIN 20 MG TAB PO SCH (21:00)
[2016-09-14] MEDS: SACCHAROMYCES BOULARDII 250 MG CAP PO SCH (21:40)
[2016-09-14] MEDS: TAMSULOSIN (SR) 0.4 MG CAP PO SCH (21:43)
[2016-09-14] MEDS: INSULIN GLARGINE [LANtus] 3 ML PEN SC SCH (21:45)
[2016-09-14] MEDS: ATORVASTATIN 20 MG TAB PO SCH (21:47)
[2016-09-15] VITALS (18 sets, daily range): BP systolic 98–156; BP diastolic 49–81; PULSE 63–74; RESP 12–20
[2016-09-15] MEDS: ACCU-CHEK XX SCH (02:00)
[2016-09-15] MEDS: PANTOPRAZOLE IV 80 MG in SOD CHLORIDE 0.9% 100 ML IV SCH ×2 (02:30→11:51)
[2016-09-15] MEDS ORDERED: PROPOFOL 200 MG INJ ONE (07:00)
[2016-09-15] MEDS: CALCIUM ACETATE 667 MG CAP PO SCH ×3 (07:55→17:22)
[2016-09-15] MEDS: INSULIN ASPART [NOVOLOG] 3 ML PEN SC SCH ×4 (07:55→21:00)
[2016-09-15] MEDS: CREON (24K-76K-120K) 1 CAP PO SCH ×3 (07:55→17:22)
--- NOTE | 2016-09-15 08:02 | PN ---
Date/Time of Note Date/Time of Note DATE: 09/15/16 TIME: 07:56 Assessment/Plan VTE Prophylaxis VTE Prophylaxis Intervention: contraindicated VTE Contraindication Reason: bleeding Lines/Catheters IV C[facility]ter Type (from [facility] Peripheral IV Urinary Cath still in place: No Assessment/Plan Chief Complaint/Hosp Course Impression: 1. Upper GI gastrointestinal bleeding, he is scheduled for a UGD today by 2. End-stage renal disease on maintenance hemodialysis Wednesday and Wednesday, will order hemodialysis for tomorrow. 3. Postural hypotension 4. Type 2 diabetes mellitus insulin-dependent 5. Hypertension 6. Peripheral artery disease 7. Right CVA with left hemiparesis 8. Anemia 9. Coronary artery disease status post stent placement 2 weeks ago 10. Atrial flutter Plan: 1. Hemodialysis ordered for tomorrow. 2. Hold Plavix aspirin and Eliquis for now. 3. Cardiology consultation called. 4. Continue Protonix drip for now. 5. He is n.p.o. and is getting an of D5 half-normal saline at 50 cc an hour. Will monitor Accu-Cheks. 6. Labs for today are pending. Problems: Subjective 24 Hr Interval Summary Free Text/Dictation He is sleeping this morning. He arouses easily and is without complaints. He has not had any further vomiting. He denies chest pain. Constitutional: no complaints Cardiovascular: no complaints Gastrointestinal: no complaints Genitourinary: no complaints Neurologic: focal-weakness Exam/Review of Systems Vital Signs Vitals Vital Signs Date Time Temp Pulse Resp B/P Pulse Ox O2 Delivery O2 Flow Rate FiO2 09/15/16 07:19 97.6 75 16 156/71 100 09/14/16 13:13 Nasal Cannula 3.0 Intake and Output 09/14/16 09/14/16 09/15/16 15:00 23:00 07:00 Intake Total 1000 ml 100 ml Output Total 3000 ml Balance -2000 ml 100 ml Exam He has a left BKA amputation. Right foot gangrenous fourth toe. Constitutional: alert, frail, oriented Neck: supple Respiratory: clear to auscultation, normal air movement Cardiovascular: regular rate and rhythm Gastrointestinal: soft Results Result Diagram: 09/14/16 1150 09/14/16 1150 Results 24 hrs Laboratory Tests Test 09/14/16 11:50 09/14/16 17:29 09/14/16 21:15 09/15/16 01:36 White Blood Count 10.2 # Red Blood Count 3.30 L Hemoglobin 9.7 L Hematocrit 30.4 L Mean Corpuscular Volume 92.1 Mean Corpuscular Hemoglobin 29.4 Mean Corpuscular Hemoglobin Concent 31.9 L Red Cell Distribution Width 15.8 H Platelet Count 169 Mean Platelet Volume 9.9 Neutrophils % 78.5 H Lymphocytes % 12.1 L Monocytes % 5.6 Eosinophils % 2.8 Basophils % 0.3 Nucleated Red Blood Cells % 0.0 Neutrophils # 8.0 H Lymphocytes # 1.2 Monocytes # 0.6 Eosinophils # 0.3 Basophils # 0.0 Nucleated Red Blood Cells # 0.0 Prothrombin Time 15.8 H Prothrombin Time Ratio 1.2 INR International Normalized Ratio 1.25 Activated Partial Thromboplast Time 33.5 Sodium Level 137 Potassium Level 4.6 Chloride Level 98 Carbon Dioxide Level 28 Anion Gap 16 Blood Urea Nitrogen 60 H Creatinine 7.44 H Glucose Level 135 Calcium Level 8.2 L Total Bilirubin 0.0 L Direct Bilirubin 0.00 Indirect Bilirubin 0.0 Aspartate Amino Transf (AST/SGOT) 30 Alanine Aminotransferase (ALT/SGPT) 24 Alkaline Phosphatase 160 H Troponin I 0.082 Total Protein 6.5 Albumin 3.4 Globulin 3.10 Albumin/Globulin Ratio 1.09 Bedside Glucose 141 135 94 Test 09/15/16 06:20 Lab Scanned Report BLOOD TRANSFUSION Medications Medications Current Medications Pantoprazole 80 mg/Sodium Chloride 100 ml @ 10 mls/hr Q10H IV Last administered on 09/15/16 02:30; Admin Dose 10 MLS/HR; Start 09/14/16 at 16:30 Dextrose/Sodium Chloride (D5-1/2ns) 1,000 ml @ 50 mls/hr Q20H IV Last administered on 09/14/16 16:30; Admin Dose 50 MLS/HR; Start 09/14/16 at 16:30 Diagnostic Test (Pha) (Accu-Chek) 1 ea 02 XX Last administered on 09/15/16 02: 00; Admin Dose 1 EA; Start 09/15/16 at 02:00 Miscellaneous Information 1 ea NOTE XX ; Start 09/14/16 at 16:30 Glucose (Glutose) 15 gm Q15M PRN PO DECREASED GLUCOSE; Start 09/14/16 at 16:30 Glucose (Glutose) 22.5 gm Q15M PRN PO DECREASED GLUCOSE; Start 09/14/16 at 16: 30 Dextrose (D50w Syringe) 25 ml Q15M PRN IV DECREASED GLUCOSE; Start 09/14/16 at 16:30 Dextrose (D50w Syringe) 50 ml Q15M PRN IV DECREASED GLUCOSE; Start 09/14/16 at 16:30 Glucagon (Glucagen) 1 mg Q15M PRN IM DECREASED GLUCOSE; Start 09/14/16 at 16:30 Glucose (Glutose) 15 gm Q15M PRN BUCCAL DECREASED GLUCOSE; Start 09/14/16 at 16 :30 Ondansetron HCl (Zofran Inj) 4 mg Q6H PRN IV NAUSEA AND/OR VOMITING; Start 12/22 at 16:30 Nitroglycerin (Nitroglycerin (Sl Tab) 0.4 Mg) 1 tab Q5M PRN SL CHEST PAIN; Start 09/14/16 at 16:30 Acetaminophen (Tylenol Tab) 650 mg Q6H PRN PO PAIN LEVEL 1-3 OR FEVER; Start at 16:30 Acetaminophen (Tylenol Tab) 650 mg Q4 PRN PO PAIN AND OR ELEVATED TEMP; Start 09/14/16 at 18:30 Ascorbic Acid (Vitamin C) 500 mg DAILY PO ; Start 09/15/16 at 09:00 Atorvastatin Calcium (Lipitor) 20 mg QHS PO Last administered on 09/14/16 21: 47; Admin Dose 20 MG; Start 09/14/16 at 21:00 Bisacodyl (Dulcolax Supp) 10 mg DAILY PRN [place] BM; Start 09/14/16 at 18:30 Calcitriol (Rocaltrol) 0.25 mcg DAILY PO ; Start 09/15/16 at 09:00 Loratadine (Claritin) 10 mg DAILY PO ; Start 09/15/16 at 09:00 Multivit/Ca Carb/ B Cmplx/FA/Prenat (Sarika-Nahomi) 1 tab DAILY PO ; Start 09/15/16 at 09:00 Saccharomyces Boulardii (Florastor) 500 mg BID PO Last administered on 21:40; Admin Dose 500 MG; Start 09/14/16 at 21:00 Tamsulosin HCl (Flomax) 0.4 mg HS PO Last administered on 09/14/16 21:43; Admin Dose 0.4 MG; Start 09/14/16 at 21:00 Insulin Glargine (Lantus) 10 unit DAILY@20 SC Last administered on 09/14/16 21 :45; Admin Dose 10 UNIT; Start 09/14/16 at 20:00 CELESTE BHATT MD Sep 15, 2016 08:02
[2016-09-15 08:39] LABS: ADD SCAN DIFF NO
[2016-09-15 08:43] LABS: BASOPHILS % 0.5 % (0.0-2.0); EOSINOPHILS # 0.4 10^3/ul (0.0-0.5); EOSINOPHILS % 5.2 % (0.0-7.0); HEMATOCRIT 29.2 % (42.0-52.0); HEMOGLOBIN 9.3 g/dl (14.0-18.0); LYMPHOCYTES # 1.2 10^3/ul (0.8-2.9); LYMPHOCYTES % 15.4 % (15.0-51.0); MEAN CORPUSCULAR HGB CONC 31.8 g/dl (32.0-37.0); MEAN CORPUSCULAR VOLUME 94.2 fl (82.0-101.0); MEAN PLATELET VOLUME 9.8 fl (7.4-10.4); MONOCYTE # 0.5 10^3/ul (0.3-0.9); NEUTROPHIL # 5.5 10^3/ul (1.6-7.5); NEUTROPHILS % 71.5 % (39.0-77.0); PLATELET COUNT 152 10^3/UL (140-415); RED CELL DISTRIBUTION WIDTH 15.6 % (11.5-14.5); WHITE BLOOD COUNT 7.7 10^3/ul (4.8-10.8)
[2016-09-15] MEDS: MULTIVIT/CA CARB/B CMPLX/FA TAB PO SCH (09:00)
[2016-09-15] MEDS: CALCITRIOL 0.25 MCG CAP PO SCH (09:00)
[2016-09-15] MEDS: LORATADINE 10 MG TAB PO SCH (09:00)
[2016-09-15] MEDS: ASCORBIC ACID 500 MG TAB PO SCH (09:00)
[2016-09-15] MEDS: SACCHAROMYCES BOULARDII 250 MG CAP PO SCH ×2 (09:00→21:37)
[2016-09-15 09:08] LABS: ALBUMIN 2.7 g/dl (3.3-4.9); ALBUMIN/GLOBULIN RATIO 0.93; BILIRUBIN,INDIRECT 0.3 mg/dl (0-1.1); BILIRUBIN,TOTAL 0.3 mg/dl (0.2-1.3); CALCIUM 8.1 mg/dl (8.4-10.2); CREATININE 4.36 mg/dl (0.61-1.24); POTASSIUM 3.3 mmol/L (3.5-5.1); TOTAL PROTEIN 5.6 g/dl (6.1-8.1)
[2016-09-15] MEDS: DEXTROSE 5%-0.45% NACL 1,000 ML IV SCH (11:50)
[2016-09-15] MEDS ORDERED: POTASSIUM CHLORIDE 20 MEQ in SOD CHLORIDE 0.9% 100 ML IVPB SCH (14:00)
[2016-09-15] MEDS ORDERED: METOCLOPRAMIDE 10 MG INJ IV PRN (17:00)
[2016-09-15] MEDS ORDERED: ONDANSETRON 4 MG INJ IV PRN (17:00)
[2016-09-15] MEDS: EPOETIN 10000 UNITS/1 ML INJ (ESRD) SC SCH (17:22)
--- NOTE | 2016-09-15 17:23 | CONS ---
Date/Time of Note Date/Time of Note DATE: 09/15/16 TIME: 17:18 Assessment/Plan Assessment/Plan Chief Complaint/Hosp Course # UGI Bleed- no sig hgb drop, hgb stable no current bleeding. GI evaluating # recent Non-STEMI- pt with diffuse 3VCAD s/p PCI to LAD with SYDNI x 2 # Acute CVA likely embolic from aflutter, carotid u/s negative for sig lesion # Atrial flutter - currently nsr # Chronic renal failure on dialysis. # Peripheral vascular disease status post left BKA, status post right fem-tib bypass, now with right toe gangrene patent graft # Orthostatic hypotension. # Anemia of chronic disease. # Moderate aortic stenosis. # Hyperlipidemia controlled. # Type 2 diabetes. # Mild aortic regurgitation on echocardiography. # Benign prostatic hypertrophy # Right toe gangrene >> restart plavix darryl once cleared by GI given likely UGIB, no sig hgb drop and recent pci in proximal LAD. ok to hold asa >> resart low dose eliquis when stable as well, watch for bleeding >> high dose ppi >> metoprolol for heart rate control >> cont stati Problems: Consultation Date/Type/Reason Admit Date/Time Sep 14, 2016 at 13:19 Constitutional: no complaints Respiratory: no complaints Cardiovascular: no complaints Gastrointestinal: no complaints Genitourinary: no complaints Musculoskeletal: no complaints Neurologic: focal-weakness Psychological: no complaints Past Medical History Medical History: coronary artery disease, diabetes, high cholesterol, hypertension, pancreatitis, renal disease Past Surgical History Past Surgical Hx: no surgical history, angioplasty, endoscopy, other Social History Alcohol Use: none Smoking Status: Never smoker Drug Use: none Exam/Review of Systems Vital Signs Vitals Vital Signs Date Time Temp Pulse Resp B/P Pulse Ox O2 Delivery O2 Flow Rate FiO2 09/15/16 16:47 68 15 132/53 100 Nasal Cannula 2.0 09/15/16 16:17 98.1 Intake and Output 09/14/16 09/14/16 09/15/16 15:00 23:00 07:00 Intake Total 1000 ml 100 ml Output Total 3000 ml Balance -2000 ml 100 ml Results Result Diagram: 09/15/16 0753 09/15/16 0753 Results 24 hrs Laboratory Tests Test 09/14/16 17:29 09/14/16 21:15 09/15/16 01:36 09/15/16 06:20 Bedside Glucose 141 135 94 Lab Scanned Report BLOOD TRANSFUSION Test 09/15/16 07:53 09/15/16 08:12 09/15/16 11:48 White Blood Count 7.7 # Red Blood Count 3.10 L Hemoglobin 9.3 L Hematocrit 29.2 L Mean Corpuscular Volume 94.2 Mean Corpuscular Hemoglobin 30.0 Mean Corpuscular Hemoglobin Concent 31.8 L Red Cell Distribution Width 15.6 H Platelet Count 152 Mean Platelet Volume 9.8 Neutrophils % 71.5 Lymphocytes % 15.4 Monocytes % 7.0 Eosinophils % 5.2 Basophils % 0.5 Nucleated Red Blood Cells % 0.0 Neutrophils # 5.5 Lymphocytes # 1.2 Monocytes # 0.5 Eosinophils # 0.4 Basophils # 0.0 Nucleated Red Blood Cells # 0.0 Sodium Level 135 Potassium Level 3.3 L Chloride Level 102 Carbon Dioxide Level 29 Anion Gap 7 #L Blood Urea Nitrogen 28 #H Creatinine 4.36 #H Glucose Level 145 Calcium Level 8.1 L Total Bilirubin 0.3 Direct Bilirubin 0.00 Indirect Bilirubin 0.3 Aspartate Amino Transf (AST/SGOT) 28 Alanine Aminotransferase (ALT/SGPT) 20 Alkaline Phosphatase 126 H Total Protein 5.6 L Albumin 2.7 L Globulin 2.90 Albumin/Globulin Ratio 0.93 Bedside Glucose 104 93 Medications Medications Current Medications Pantoprazole 80 mg/Sodium Chloride 100 ml @ 10 mls/hr Q10H IV Last administered on 09/15/16 11:51; Admin Dose 10 MLS/HR; Start 09/14/16 at 16:30 Dextrose/Sodium Chloride (D5-1/2ns) 1,000 ml @ 50 mls/hr Q20H IV Last administered on 09/14/16 16:30; Admin Dose 50 MLS/HR; Start 09/14/16 at 16:30 Diagnostic Test (Pha) (Accu-Chek) 1 ea 02 XX Last administered on 09/15/16 02: 00; Admin Dose 1 EA; Start 09/15/16 at 02:00 Miscellaneous Information 1 ea NOTE XX ; Start 09/14/16 at 16:30 Glucose (Glutose) 15 gm Q15M PRN PO DECREASED GLUCOSE; Start 09/14/16 at 16:30 Glucose (Glutose) 22.5 gm Q15M PRN PO DECREASED GLUCOSE; Start 09/14/16 at 16: 30 Dextrose (D50w Syringe) 25 ml Q15M PRN IV DECREASED GLUCOSE; Start 09/14/16 at 16:30 Dextrose (D50w Syringe) 50 ml Q15M PRN IV DECREASED GLUCOSE; Start 09/14/16 at 16:30 Glucagon (Glucagen) 1 mg Q15M PRN IM DECREASED GLUCOSE; Start 09/14/16 at 16:30 Glucose (Glutose) 15 gm Q15M PRN BUCCAL DECREASED GLUCOSE; Start 09/14/16 at 16 :30 Ondansetron HCl (Zofran Inj) 4 mg Q6H PRN IV NAUSEA AND/OR VOMITING; Start 12/22 at 16:30 Nitroglycerin (Nitroglycerin (Sl Tab) 0.4 Mg) 1 tab Q5M PRN SL CHEST PAIN; Start 09/14/16 at 16:30 Acetaminophen (Tylenol Tab) 650 mg Q6H PRN PO PAIN LEVEL 1-3 OR FEVER; Start at 16:30 Acetaminophen (Tylenol Tab) 650 mg Q4 PRN PO PAIN AND OR ELEVATED TEMP; Start 09/14/16 at 18:30 Ascorbic Acid (Vitamin C) 500 mg DAILY PO ; Start 09/15/16 at 09:00 Atorvastatin Calcium (Lipitor) 20 mg QHS PO Last administered on 09/14/16 21: 47; Admin Dose 20 MG; Start 09/14/16 at 21:00 Bisacodyl (Dulcolax Supp) 10 mg DAILY PRN [place] BM; Start 09/14/16 at 18:30 Calcitriol (Rocaltrol) 0.25 mcg DAILY PO ; Start 09/15/16 at 09:00 Loratadine (Claritin) 10 mg DAILY PO ; Start 09/15/16 at 09:00 Multivit/Ca Carb/ B Cmplx/FA/Prenat (Sarika-Nahomi) 1 tab DAILY PO ; Start 09/15/16 at 09:00 Saccharomyces Boulardii (Florastor) 500 mg BID PO Last administered on 21:40; Admin Dose 500 MG; Start 09/14/16 at 21:00 Tamsulosin HCl (Flomax) 0.4 mg HS PO Last administered on 09/14/16 21:43; Admin Dose 0.4 MG; Start 09/14/16 at 21:00 Insulin Glargine (Lantus) 10 unit DAILY@20 SC Last administered on 09/14/16 21 :45; Admin Dose 10 UNIT; Start 09/14/16 at 20:00 Epoetin Nito (Epogen (Esrd)) 10,000 units TuThSa@17 SC ; Start 09/15/16 at 17:00 AMY PEREZ Sep 15, 2016 17:23
[2016-09-15] MEDS: CLOPIDOGREL 75 MG TAB PO SCH (18:29)
[2016-09-15] MEDS: PANTOPRAZOLE (EC) 40 MG TAB PO SCH (18:29)
[2016-09-15] MEDS: APIXABAN 5 MG TABLET PO SCH (21:37)
[2016-09-15] MEDS: TAMSULOSIN (SR) 0.4 MG CAP PO SCH (21:37)
[2016-09-15] MEDS: ATORVASTATIN 20 MG TAB PO SCH (21:38)
[2016-09-15] MEDS: INSULIN GLARGINE [LANtus] 3 ML PEN SC SCH (21:41)
[2016-09-16] VITALS (20 sets, daily range): BP systolic 98–148; BP diastolic 49–76; PULSE 72–90; RESP 17–20
[2016-09-16] MEDS: ACCU-CHEK XX SCH (02:00)
[2016-09-16] MEDS: PANTOPRAZOLE (EC) 40 MG TAB PO SCH ×2 (05:45→17:23)
[2016-09-16] MEDS: INSULIN ASPART [NOVOLOG] 3 ML PEN SC SCH ×4 (07:50→21:00)
[2016-09-16] MEDS: DEXTROSE 5%-0.45% NACL 1,000 ML IV SCH (08:08)
[2016-09-16] MEDS: APIXABAN 5 MG TABLET PO SCH (08:10)
[2016-09-16] MEDS: MULTIVIT/CA CARB/B CMPLX/FA TAB PO SCH (08:10)
[2016-09-16] MEDS: CALCIUM ACETATE 667 MG CAP PO SCH ×3 (08:10→17:23)
[2016-09-16] MEDS: CLOPIDOGREL 75 MG TAB PO SCH (08:10)
[2016-09-16] MEDS: LORATADINE 10 MG TAB PO SCH (08:10)
[2016-09-16] MEDS: CALCITRIOL 0.25 MCG CAP PO SCH (08:10)
[2016-09-16] MEDS: ASCORBIC ACID 500 MG TAB PO SCH (08:10)
[2016-09-16] MEDS: CREON (24K-76K-120K) 1 CAP PO SCH ×3 (08:10→17:23)
[2016-09-16] MEDS: SACCHAROMYCES BOULARDII 250 MG CAP PO SCH ×2 (08:10→20:43)
--- NOTE | 2016-09-16 08:28 | CONS ---
Date/Time of Note Date/Time of Note DATE: 09/16/16 TIME: 08:27 Assessment/Plan Assessment/Plan Chief Complaint/Hosp Course # UGI Bleed- no sig hgb drop, hgb stable no current bleeding. EGD yesterday, pt with nodules no ulceration, bleeding vessel. # recent Non-STEMI- pt with diffuse 3VCAD s/p PCI to LAD with SYDNI x 2 # Acute CVA likely embolic from aflutter, carotid u/s negative for sig lesion # Atrial flutter - currently nsr # Chronic renal failure on dialysis. # Peripheral vascular disease status post left BKA, status post right fem-tib bypass, now with right toe gangrene patent graft # Orthostatic hypotension. # Anemia of chronic disease. # Moderate aortic stenosis. # Hyperlipidemia controlled. # Type 2 diabetes. # Mild aortic regurgitation on echocardiography. # Benign prostatic hypertrophy # Right toe gangrene >>plavix 75mg po >> apixiban 2.5mg po bid >> high dose ppi >> metoprolol for heart rate control ( no further atrial flutter on tele) >> cont statin Problems: Consultation Date/Type/Reason Admit Date/Time Sep 14, 2016 at 13:19 Initial Consult Date Exam/Review of Systems Vital Signs Vitals Vital Signs Date Time Temp Pulse Resp B/P Pulse Ox O2 Delivery O2 Flow Rate FiO2 09/16/16 08:06 87 09/16/16 07:49 97.6 17 148/72 92 09/15/16 16:47 Nasal Cannula 2.0 Intake and Output 09/15/16 09/15/16 09/16/16 15:00 23:00 07:00 Intake Total 820 ml 200 ml Output Total 100 ml Balance 820 ml 100 ml Results Result Diagram: 09/15/16 0753 09/15/16 0753 Results 24 hrs Laboratory Tests Test 09/15/16 11:48 09/15/16 17:17 09/15/16 21:23 09/16/16 03:41 Bedside Glucose 93 94 124 112 Test 09/16/16 07:47 Bedside Glucose 116 Medications Medications Current Medications Dextrose/Sodium Chloride (D5-1/2ns) 1,000 ml @ 50 mls/hr Q20H IV Last administered on 09/14/16t 16:30; Admin Dose 50 MLS/HR; Start 09/14/16 at 16:30 Diagnostic Test (Pha) (Accu-Chek) 1 ea 02 XX Last administered on 09/15/16 02: 00; Admin Dose 1 EA; Start 09/15/16 at 02:00 Miscellaneous Information 1 ea NOTE XX ; Start 09/14/16 at 16:30 Glucose (Glutose) 15 gm Q15M PRN PO DECREASED GLUCOSE; Start 09/14/16 at 16:30 Glucose (Glutose) 22.5 gm Q15M PRN PO DECREASED GLUCOSE; Start 09/14/16 at 16: 30 Dextrose (D50w Syringe) 25 ml Q15M PRN IV DECREASED GLUCOSE; Start 09/14/16 at 16:30 Dextrose (D50w Syringe) 50 ml Q15M PRN IV DECREASED GLUCOSE; Start 09/14/16 at 16:30 Glucagon (Glucagen) 1 mg Q15M PRN IM DECREASED GLUCOSE; Start 09/14/16 at 16:30 Glucose (Glutose) 15 gm Q15M PRN BUCCAL DECREASED GLUCOSE; Start 09/14/16 at 16 :30 Ondansetron HCl (Zofran Inj) 4 mg Q6H PRN IV NAUSEA AND/OR VOMITING; Start 12/22 at 16:30 Nitroglycerin (Nitroglycerin (Sl Tab) 0.4 Mg) 1 tab Q5M PRN SL CHEST PAIN; Start 09/14/16 at 16:30 Acetaminophen (Tylenol Tab) 650 mg Q4 PRN PO PAIN AND OR ELEVATED TEMP; Start 09/14/16 at 18:30 Ascorbic Acid (Vitamin C) 500 mg DAILY PO Last administered on 09/16/16 08:10 ; Admin Dose 500 MG; Start 09/15/16 at 09:00 Atorvastatin Calcium (Lipitor) 20 mg QHS PO Last administered on 09/15/16 21: 38; Admin Dose 20 MG; Start 09/14/16 at 21:00 Bisacodyl (Dulcolax Supp) 10 mg DAILY PRN [place] BM; Start 09/14/16 at 18:30 Calcitriol (Rocaltrol) 0.25 mcg DAILY PO Last administered on 09/16/16 08:10; Admin Dose 0.25 MCG; Start 09/15/16 at 09:00 Loratadine (Claritin) 10 mg DAILY PO Last administered on 09/16/16 08:10; Admin Dose 10 MG; Start 09/15/16 at 09:00 Multivit/Ca Carb/ B Cmplx/FA/Prenat (Sarika-Nahomi) 1 tab DAILY PO Last administered on 09/16/16 08:10; Admin Dose 1 TAB; Start 09/15/16 at 09:00 Saccharomyces Boulardii (Florastor) 500 mg BID PO Last administered on 08:10; Admin Dose 500 MG; Start 09/14/16 at 21:00 Tamsulosin HCl (Flomax) 0.4 mg HS PO Last administered on 09/15/16 21:37; Admin Dose 0.4 MG; Start 09/14/16 at 21:00 Insulin Glargine (Lantus) 10 unit DAILY@20 SC Last administered on 09/15/16 21 :41; Admin Dose 10 UNIT; Start 09/14/16 at 20:00 Epoetin Nito (Epogen (Esrd)) 10,000 units TuThSa@17 SC Last administered on 17:22; Admin Dose 10,000 UNITS; Start 09/15/16 at 17:00 Clopidogrel Bisulfate (plaVIX) 75 mg DAILY PO Last administered on 09/16/16 08 :10; Admin Dose 75 MG; Start 09/15/16 at 18:00 Apixaban (Eliquis) 2.5 mg BID PO Last administered on 09/16/16 08:10; Admin Dose 2.5 MG; Start 09/15/16 at 21:00 Pantoprazole (Protonix Tab) 40 mg BID@06,18 PO Last administered on 09/16/16 05:45; Admin Dose 40 MG; Start 09/15/16 at 18:00 AMY PEREZ Sep 16, 2016 08:28
[2016-09-16 09:05] LABS: ADD SCAN DIFF NO
[2016-09-16 09:09] LABS: BASOPHILS % 0.4 % (0.0-2.0); EOSINOPHILS # 0.6 10^3/ul (0.0-0.5); HEMATOCRIT 30.8 % (42.0-52.0); HEMOGLOBIN 9.6 g/dl (14.0-18.0); LYMPHOCYTES # 1.4 10^3/ul (0.8-2.9); LYMPHOCYTES % 18.2 % (15.0-51.0); MEAN CORPUSCULAR HEMOGLOBIN 29.7 pg (29.0-33.0); MEAN CORPUSCULAR HGB CONC 31.2 g/dl (32.0-37.0); MEAN CORPUSCULAR VOLUME 95.4 fl (82.0-101.0); MEAN PLATELET VOLUME 9.9 fl (7.4-10.4); MONOCYTE # 0.5 10^3/ul (0.3-0.9); MONOCYTES % 6.4 % (0.0-11.0); NEUTROPHIL # 5.1 10^3/ul (1.6-7.5); NEUTROPHILS % 66.9 % (39.0-77.0); PLATELET COUNT 156 10^3/UL (140-415); RED BLOOD COUNT 3.23 10^6/ul (4.70-6.10); RED CELL DISTRIBUTION WIDTH 15.6 % (11.5-14.5); WHITE BLOOD COUNT 7.6 10^3/ul (4.8-10.8)
[2016-09-16 09:37] LABS: ALBUMIN 2.9 g/dl (3.3-4.9); ALBUMIN/GLOBULIN RATIO 1.03; BILIRUBIN,INDIRECT 0.1 mg/dl (0-1.1); BILIRUBIN,TOTAL 0.1 mg/dl (0.2-1.3); CALCIUM 7.8 mg/dl (8.4-10.2); CREATININE 5.87 mg/dl (0.61-1.24); TOTAL PROTEIN 5.7 g/dl (6.1-8.1)
--- NOTE | 2016-09-16 11:57 | CONS ---
Date/Time of Note Date/Time of Note DATE: 09/16/16 TIME: 11:49 Consult Date/Type/Reason Admit Date/Time Sep 14, 2016 at 13:19 Initial Consult Date September 14, 2016 Reason for Consultation GI Bleed Subjective No problem with endoscopy No further hematemesis Esophageal Brushing reviewed with pathologist - NO evidence of sri Objective Vital Signs Date Time Temp Pulse Resp B/P Pulse Ox O2 Delivery O2 Flow Rate FiO2 09/16/16 11:24 97.9 77 17 148/70 98 09/15/16 16:47 Nasal Cannula 2.0 Chest: clear to P and A Cardiac: no m, r, g Abdomen: soft, non tender, +bs Intake and Output 09/15/16 09/15/16 09/16/16 15:00 23:00 07:00 Intake Total 820 ml 200 ml Output Total 100 ml Balance 820 ml 100 ml Results/Medications Result Diagram: 09/16/16 0745 09/16/16 0745 Results 24 hrs Laboratory Tests Test 09/15/16 17:17 09/15/16 21:23 09/16/16 03:41 09/16/16 07:45 Bedside Glucose 94 124 112 White Blood Count 7.6 Red Blood Count 3.23 L Hemoglobin 9.6 L Hematocrit 30.8 L Mean Corpuscular Volume 95.4 Mean Corpuscular Hemoglobin 29.7 Mean Corpuscular Hemoglobin Concent 31.2 L Red Cell Distribution Width 15.6 H Platelet Count 156 Mean Platelet Volume 9.9 Neutrophils % 66.9 Lymphocytes % 18.2 Monocytes % 6.4 Eosinophils % 8.0 H Basophils % 0.4 Nucleated Red Blood Cells % 0.0 Neutrophils # 5.1 Lymphocytes # 1.4 Monocytes # 0.5 Eosinophils # 0.6 H Basophils # 0.0 Nucleated Red Blood Cells # 0.0 Sodium Level 135 Potassium Level 4.0 Chloride Level 104 Carbon Dioxide Level 25 Anion Gap 10 Blood Urea Nitrogen 35 H Creatinine 5.87 H Glucose Level 107 Calcium Level 7.8 L Total Bilirubin 0.1 L Direct Bilirubin 0.00 Indirect Bilirubin 0.1 Aspartate Amino Transf (AST/SGOT) 25 Alanine Aminotransferase (ALT/SGPT) 23 Alkaline Phosphatase 120 Total Protein 5.7 L Albumin 2.9 L Globulin 2.80 Albumin/Globulin Ratio 1.03 Test 09/16/16 07:47 Bedside Glucose 116 Medications Current Medications Dextrose/Sodium Chloride (D5-1/2ns) 1,000 ml @ 50 mls/hr Q20H IV Last administered on 09/14/16 16:30; Admin Dose 50 MLS/HR; Start 09/14/16 at 16:30 Diagnostic Test (Pha) (Accu-Chek) 1 ea 02 XX Last administered on 09/15/16 02: 00; Admin Dose 1 EA; Start 09/15/16 at 02:00 Miscellaneous Information 1 ea NOTE XX ; Start 09/14/16 at 16:30 Glucose (Glutose) 15 gm Q15M PRN PO DECREASED GLUCOSE; Start 09/14/16 at 16:30 Glucose (Glutose) 22.5 gm Q15M PRN PO DECREASED GLUCOSE; Start 09/14/16 at 16: 30 Dextrose (D50w Syringe) 25 ml Q15M PRN IV DECREASED GLUCOSE; Start 09/14/16 at 16:30 Dextrose (D50w Syringe) 50 ml Q15M PRN IV DECREASED GLUCOSE; Start 09/14/16 at 16:30 Glucagon (Glucagen) 1 mg Q15M PRN IM DECREASED GLUCOSE; Start 09/14/16 at 16:30 Glucose (Glutose) 15 gm Q15M PRN BUCCAL DECREASED GLUCOSE; Start 09/14/16 at 16 :30 Ondansetron HCl (Zofran Inj) 4 mg Q6H PRN IV NAUSEA AND/OR VOMITING; Start 12/22 at 16:30 Nitroglycerin (Nitroglycerin (Sl Tab) 0.4 Mg) 1 tab Q5M PRN SL CHEST PAIN; Start 09/14/16 at 16:30 Acetaminophen (Tylenol Tab) 650 mg Q4 PRN PO PAIN AND OR ELEVATED TEMP; Start 09/14/16 at 18:30 Ascorbic Acid (Vitamin C) 500 mg DAILY PO Last administered on 09/16/16 08:10 ; Admin Dose 500 MG; Start 09/15/16 at 09:00 Atorvastatin Calcium (Lipitor) 20 mg QHS PO Last administered on 09/15/16 21: 38; Admin Dose 20 MG; Start 09/14/16 at 21:00 Bisacodyl (Dulcolax Supp) 10 mg DAILY PRN [place] BM; Start 09/14/16 at 18:30 Calcitriol (Rocaltrol) 0.25 mcg DAILY PO Last administered on 09/16/16 08:10; Admin Dose 0.25 MCG; Start 09/15/16 at 09:00 Loratadine (Claritin) 10 mg DAILY PO Last administered on 09/16/16 08:10; Admin Dose 10 MG; Start 09/15/16 at 09:00 Multivit/Ca Carb/ B Cmplx/FA/Prenat (Sarika-Nahomi) 1 tab DAILY PO Last administered on 09/16/16 08:10; Admin Dose 1 TAB; Start 09/15/16 at 09:00 Saccharomyces Boulardii (Florastor) 500 mg BID PO Last administered on 08:10; Admin Dose 500 MG; Start 09/14/16 at 21:00 Tamsulosin HCl (Flomax) 0.4 mg HS PO Last administered on 09/15/16 21:37; Admin Dose 0.4 MG; Start 09/14/16 at 21:00 Insulin Glargine (Lantus) 10 unit DAILY@20 SC Last administered on 09/15/16 21 :41; Admin Dose 10 UNIT; Start 09/14/16 at 20:00 Epoetin Nito (Epogen (Esrd)) 10,000 units TuThSa@17 SC Last administered on 17:22; Admin Dose 10,000 UNITS; Start 09/15/16 at 17:00 Clopidogrel Bisulfate (plaVIX) 75 mg DAILY PO Last administered on 09/16/16 08 :10; Admin Dose 75 MG; Start 09/15/16 at 18:00 Apixaban (Eliquis) 2.5 mg BID PO Last administered on 09/16/16 08:10; Admin Dose 2.5 MG; Start 09/15/16 at 21:00 Pantoprazole (Protonix Tab) 40 mg BID@06,18 PO Last administered on 09/16/16 05:45; Admin Dose 40 MG; Start 09/15/16 at 18:00 Assessment/Plan Additional Assessment/Plan Impression: 1. 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 Hiatal Hernia 3. Whitish material on esophagus is likely just inflamatory related to vomiting given negative brushing for sri Plan: 1. Discussed with Dr. Reed 2. Continue protonix po per orders 3. Reintroduction of anticoagulation per Dr. Reed 4. I will sign off for now. Will be happy to see again at your request GRACE FIELDS MD Sep 16, 2016 11:56
[2016-09-16] MEDS ORDERED: HEPARIN 1000 UNITS/ML 10 ML INJ CATHETER ONE (13:30)
[2016-09-16] MEDS: FLUCONAZOLE 100 MG TAB PO SCH ×2 (17:24→20:43)
--- NOTE | 2016-09-16 19:06 | PN ---
Date/Time of Note Date/Time of Note DATE: 09/16/16 TIME: 18:58 Assessment/Plan VTE Prophylaxis VTE Prophylaxis Intervention: other Lines/Catheters IV C[facility]ter Type [facility]from [facility] Peripheral IV Urinary Cath still in place: No Assessment/Plan Chief Complaint/Hosp Course Impression: 1. Upper GI gastrointestinal bleeding . He did have an upper GI endoscopy yesterday which showed some whitish plaques in the esophagus consistent with Traci. 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 There was no evidence of any ulcers. Dr. Cotton felt that the patient could be placed back on anticoagulants. The patient was started on Diflucan which can increase the effects of Eliquis and decrease the effects of Plavix. I did decrease the Eliquis to once a day. 2. End-stage renal disease on maintenance hemodialysis Wednesday and Wednesday, he had hemodialysis today. 3. Postural hypotension 4. Type 2 diabetes mellitus insulin-dependent 5. Hypertension 6. Peripheral artery disease . His right foot is looking worse. He has worsening ischemic ulcers. I will have vascular surgery and infectious disease see the patient. 7. Right CVA with left hemiparesis 8. Anemia 9. Coronary artery disease status post stent placement 2 weeks ago 10. Atrial flutter Plan: 1. Hemodialysis done today. 2. Plavix and Eliquis restarted. 3. Cardiology has been seeing patient. 4. Now on Protonix 40 mg twice a day. 5. He is eating and I can stop the IV fluids. 6. Labs for today are okay. 7 vascular surgery and infectious disease have been called to see patient. Problems: Subjective 24 Hr Interval Summary Free Text/Dictation He is feeling better at this time. He said that he was able to eat dinner and still feels hungry. He had hemodialysis earlier today. Constitutional: no complaints Respiratory: no complaints Cardiovascular: no complaints Gastrointestinal: no complaints Genitourinary: no complaints Neurologic: focal-weakness Exam/Review of Systems Vital Signs Vitals Vital Signs Date Time Temp Pulse Resp B/P Pulse Ox O2 Delivery O2 Flow Rate FiO2 09/16/16 16:05 76 09/16/16 15:26 97.4 18 141/63 97 09/15/16 16:47 Nasal Cannula 2.0 Intake and Output 09/15/16 09/15/16 09/16/16 15:00 23:00 07:00 Intake Total 820 ml 200 ml Output Total 100 ml Balance 820 ml 100 ml Exam His right foot has some erythema. The right fourth digit is gangrenous. He has a heel ulcer. Wound nurse thinks the ulcers are looking worse. Constitutional: alert, frail, oriented Respiratory: clear to auscultation, normal air movement Cardiovascular: regular rate and rhythm Gastrointestinal: soft Results Result Diagram: 09/16/16 0745 09/16/16 0745 Results 24 hrs Laboratory Tests Test 09/15/16 21:23 09/16/16 03:41 09/16/16 07:45 09/16/16 07:47 Bedside Glucose 124 112 116 White Blood Count 7.6 Red Blood Count 3.23 L Hemoglobin 9.6 L Hematocrit 30.8 L Mean Corpuscular Volume 95.4 Mean Corpuscular Hemoglobin 29.7 Mean Corpuscular Hemoglobin Concent 31.2 L Red Cell Distribution Width 15.6 H Platelet Count 156 Mean Platelet Volume 9.9 Neutrophils % 66.9 Lymphocytes % 18.2 Monocytes % 6.4 Eosinophils % 8.0 H Basophils % 0.4 Nucleated Red Blood Cells % 0.0 Neutrophils # 5.1 Lymphocytes # 1.4 Monocytes # 0.5 Eosinophils # 0.6 H Basophils # 0.0 Nucleated Red Blood Cells # 0.0 Sodium Level 135 Potassium Level 4.0 Chloride Level 104 Carbon Dioxide Level 25 Anion Gap 10 Blood Urea Nitrogen 35 H Creatinine 5.87 H Glucose Level 107 Calcium Level 7.8 L Total Bilirubin 0.1 L Direct Bilirubin 0.00 Indirect Bilirubin 0.1 Aspartate Amino Transf (AST/SGOT) 25 Alanine Aminotransferase (ALT/SGPT) 23 Alkaline Phosphatase 120 Total Protein 5.7 L Albumin 2.9 L Globulin 2.80 Albumin/Globulin Ratio 1.03 Test 09/16/16 12:06 09/16/16 17:20 Bedside Glucose 123 94 Medications Medications Current Medications Diagnostic Test (Pha) (Accu-Chek) 1 ea 02 XX Last administered on 09/15/16t 02: 00; Admin Dose 1 EA; Start 09/15/16 at 02:00 Miscellaneous Information 1 ea NOTE XX ; Start 09/14/16 at 16:30 Glucose (Glutose) 15 gm Q15M PRN PO DECREASED GLUCOSE; Start 09/14/16 at 16:30 Glucose (Glutose) 22.5 gm Q15M PRN PO DECREASED GLUCOSE; Start 09/14/16 at 16: 30 Dextrose (D50w Syringe) 25 ml Q15M PRN IV DECREASED GLUCOSE; Start 09/14/16 at 16:30 Dextrose (D50w Syringe) 50 ml Q15M PRN IV DECREASED GLUCOSE; Start 09/14/16 at 16:30 Glucagon (Glucagen) 1 mg Q15M PRN IM DECREASED GLUCOSE; Start 09/14/16 at 16:30 Glucose (Glutose) 15 gm Q15M PRN BUCCAL DECREASED GLUCOSE; Start 09/14/16 at 16 :30 Ondansetron HCl (Zofran Inj) 4 mg Q6H PRN IV NAUSEA AND/OR VOMITING; Start 12/22 at 16:30 Nitroglycerin (Nitroglycerin (Sl Tab) 0.4 Mg) 1 tab Q5M PRN SL CHEST PAIN; Start 09/14/16 at 16:30 Acetaminophen (Tylenol Tab) 650 mg Q4 PRN PO PAIN AND OR ELEVATED TEMP; Start 09/14/16 at 18:30 Ascorbic Acid (Vitamin C) 500 mg DAILY PO Last administered on 09/16/16 08:10 ; Admin Dose 500 MG; Start 09/15/16 at 09:00 Atorvastatin Calcium (Lipitor) 20 mg QHS PO Last administered on 09/15/16 21: 38; Admin Dose 20 MG; Start 09/14/16 at 21:00 Bisacodyl (Dulcolax Supp) 10 mg DAILY PRN [place] BM; Start 09/14/16 at 18:30 Calcitriol (Rocaltrol) 0.25 mcg DAILY PO Last administered on 09/16/16 08:10; Admin Dose 0.25 MCG; Start 09/15/16 at 09:00 Loratadine (Claritin) 10 mg DAILY PO Last administered on 09/16/16 08:10; Admin Dose 10 MG; Start 09/15/16 at 09:00 Multivit/Ca Carb/ B Cmplx/FA/Prenat (Sarika-Nahomi) 1 tab DAILY PO Last administered on 09/16/16 08:10; Admin Dose 1 TAB; Start 09/15/16 at 09:00 Saccharomyces Boulardii (Florastor) 500 mg BID PO Last administered on 08:10; Admin Dose 500 MG; Start 09/14/16 at 21:00 Tamsulosin HCl (Flomax) 0.4 mg HS PO Last administered on 09/15/16 21:37; Admin Dose 0.4 MG; Start 09/14/16 at 21:00 Insulin Glargine (Lantus) 10 unit DAILY@20 SC Last administered on 09/15/16 21 :41; Admin Dose 10 UNIT; Start 09/14/16 at 20:00 Epoetin Nito (Epogen (Esrd)) 10,000 units TuThSa@17 SC Last administered on 17:22; Admin Dose 10,000 UNITS; Start 09/15/16 at 17:00 Clopidogrel Bisulfate (plaVIX) 75 mg DAILY PO Last administered on 09/16/16 08 :10; Admin Dose 75 MG; Start 09/15/16 at 18:00 Pantoprazole (Protonix Tab) 40 mg BID@06,18 PO Last administered on 09/16/16 17:23; Admin Dose 40 MG; Start 09/15/16 at 18:00 Fluconazole (Diflucan) 100 mg QPM PO Last administered on 09/16/16 17:24; Admin Dose 100 MG; Start 09/16/16 at 16:00; Stop 09/30/16 at 21:01 Apixaban (Eliquis) 2.5 mg DAILY PO ; Start 09/17/16 at 09:00; Stop 09/30/16 at 22:00 Apixaban (Eliquis) 2.5 mg BID PO ; Start 10/01/16 at 09:00 CELESTE BHATT MD Sep 16, 2016 19:06
[2016-09-16] MEDS: ATORVASTATIN 20 MG TAB PO SCH (20:43)
[2016-09-16] MEDS: TAMSULOSIN (SR) 0.4 MG CAP PO SCH (20:43)
[2016-09-16] MEDS: INSULIN GLARGINE [LANtus] 3 ML PEN SC SCH (20:47)
[2016-09-17] VITALS (12 sets, daily range): BP systolic 132–162; BP diastolic 63–78; PULSE 76–97; RESP 18–20
[2016-09-17] MEDS: ACCU-CHEK XX SCH (02:00)
[2016-09-17] MEDS: PANTOPRAZOLE (EC) 40 MG TAB PO SCH ×2 (06:14→17:54)
[2016-09-17] MEDS: INSULIN ASPART [NOVOLOG] 3 ML PEN SC SCH ×4 (07:55→20:54)
[2016-09-17] MEDS: CALCITRIOL 0.25 MCG CAP PO SCH (09:31)
[2016-09-17] MEDS: CREON (24K-76K-120K) 1 CAP PO SCH ×3 (09:31→17:54)
[2016-09-17] MEDS: CALCIUM ACETATE 667 MG CAP PO SCH ×3 (09:31→17:54)
[2016-09-17] MEDS: LORATADINE 10 MG TAB PO SCH (09:31)
[2016-09-17] MEDS: CLOPIDOGREL 75 MG TAB PO SCH (09:31)
[2016-09-17] MEDS: SACCHAROMYCES BOULARDII 250 MG CAP PO SCH ×2 (09:31→20:46)
[2016-09-17] MEDS: MULTIVIT/CA CARB/B CMPLX/FA TAB PO SCH (09:31)
[2016-09-17] MEDS: APIXABAN 5 MG TABLET PO SCH (09:32)
[2016-09-17] MEDS: ASCORBIC ACID 500 MG TAB PO SCH (09:32)
--- NOTE | 2016-09-17 09:52 | PN ---
Date/Time of Note Date/Time of Note DATE: 09/17/16 TIME: 09:38 Assessment/Plan VTE Prophylaxis VTE Prophylaxis Intervention: other Lines/Catheters IV Catheter Type (from [facility]): Peripheral IV Urinary Cath still in place: No Assessment/Plan Chief Complaint/Hosp Course Impression: 1. Upper GI gastrointestinal bleeding . He did have an upper GI endoscopy yesterday which showed some whitish plaques in the esophagus consistent with Traci. 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 There was no evidence of any ulcers. Dr. Cotton felt that the patient could be placed back on anticoagulants. The patient was started on Diflucan which can increase the effects of Eliquis and decrease the effects of Plavix. I did decrease the Eliquis to once a day. 2. End-stage renal disease on maintenance hemodialysis Wednesday and Wednesday, he is due for hemodialysis tomorrow 3. Postural hypotension 4. Type 2 diabetes mellitus insulin-dependent 5. Hypertension 6. Peripheral artery disease . His right foot is looking worse. He has worsening ischemic ulcers. I will have asked vascular surgery and infectious disease to see the patient. 7. Right CVA with left hemiparesis 8. Anemia 9. Coronary artery disease status post stent placement 2 weeks ago 10. Atrial flutter Plan: 1. Hemodialysis done today. 2. Plavix and Eliquis restarted. 3. Cardiology has been seeing patient. 4. Now on Protonix 40 mg twice a day. 5. He is eating and I can stop the IV fluids. 6. Labs for today are okay. 7 vascular surgery and infectious disease have been called to see patient. 8 discharge planning. Patient could go back to [facility] tomorrow after hemodialysis. Problems: Subjective 24 Hr Interval Summary Free Text/Dictation He is awake and alert. He said that he did eat breakfast. He has no complaints. 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, right foot gangrenous fourth toe and some ischemic ulcer on the heel Constitutional: alert, frail, oriented Neck: supple Respiratory: clear to auscultation, normal air movement Cardiovascular: regular rate and rhythm Gastrointestinal: soft Neurological: focal weakness Results Result Diagram: 09/16/16 0745 09/16/16 0745 Results 24 hrs Laboratory Tests Test 09/16/16 12:06 09/16/16 17:20 09/16/16 20:03 09/17/16 02:52 Bedside Glucose 123 94 129 86 Test 09/17/16 08:38 Bedside Glucose 113 Medications Medications Current Medications Diagnostic Test (Pha) (Accu-Chek) 1 ea 02 XX Last administered on 09/15/16t 02: 00; Admin Dose 1 EA; Start 09/15/16 at 02:00 Miscellaneous Information 1 ea NOTE XX ; Start 09/14/16 at 16:30 Glucose (Glutose) 15 gm Q15M PRN PO DECREASED GLUCOSE; Start 09/14/16 at 16:30 Glucose (Glutose) 22.5 gm Q15M PRN PO DECREASED GLUCOSE; Start 09/14/16 at 16: 30 Dextrose (D50w Syringe) 25 ml Q15M PRN IV DECREASED GLUCOSE; Start 09/14/16 at 16:30 Dextrose (D50w Syringe) 50 ml Q15M PRN IV DECREASED GLUCOSE; Start 09/14/16 at 16:30 Glucagon (Glucagen) 1 mg Q15M PRN IM DECREASED GLUCOSE; Start 09/14/16 at 16:30 Glucose (Glutose) 15 gm Q15M PRN BUCCAL DECREASED GLUCOSE; Start 09/14/16 at 16 :30 Ondansetron HCl (Zofran Inj) 4 mg Q6H PRN IV NAUSEA AND/OR VOMITING; Start 12/22 at 16:30 Nitroglycerin (Nitroglycerin (Sl Tab) 0.4 Mg) 1 tab Q5M PRN SL CHEST PAIN; Start 09/14/16 at 16:30 Acetaminophen (Tylenol Tab) 650 mg Q4 PRN PO PAIN AND OR ELEVATED TEMP; Start 09/14/16 at 18:30 Ascorbic Acid (Vitamin C) 500 mg DAILY PO Last administered on 09/17/16 09:32 ; Admin Dose 500 MG; Start 09/15/16 at 09:00 Atorvastatin Calcium (Lipitor) 20 mg QHS PO Last administered on 09/16/16 20: 43; Admin Dose 20 MG; Start 09/14/16 at 21:00 Bisacodyl (Dulcolax Supp) 10 mg DAILY PRN [place] BM; Start 09/14/16 at 18:30 Calcitriol (Rocaltrol) 0.25 mcg DAILY PO Last administered on 09/17/16 09:31; Admin Dose 0.25 MCG; Start 09/15/16 at 09:00 Loratadine (Claritin) 10 mg DAILY PO Last administered on 09/17/16 09:31; Admin Dose 10 MG; Start 09/15/16 at 09:00 Multivit/Ca Carb/ B Cmplx/FA/Prenat (Sarika-Nahomi) 1 tab DAILY PO Last administered on 09/17/16 09:31; Admin Dose 1 TAB; Start 09/15/16 at 09:00 Saccharomyces Boulardii (Florastor) 500 mg BID PO Last administered on 09:31; Admin Dose 500 MG; Start 09/14/16 at 21:00 Tamsulosin HCl (Flomax) 0.4 mg HS PO Last administered on 09/16/16 20:43; Admin Dose 0.4 MG; Start 09/14/16 at 21:00 Insulin Glargine (Lantus) 10 unit DAILY@20 SC Last administered on 09/16/16 20 :47; Admin Dose 10 UNIT; Start 09/14/16 at 20:00 Epoetin Nito (Epogen (Esrd)) 10,000 units TuThSa@17 SC Last administered on 17:22; Admin Dose 10,000 UNITS; Start 09/15/16 at 17:00 Clopidogrel Bisulfate (plaVIX) 75 mg DAILY PO Last administered on 09/17/16 09 :31; Admin Dose 75 MG; Start 09/15/16 at 18:00 Pantoprazole (Protonix Tab) 40 mg BID@18 PO Last administered on 09/17/16 06:14; Admin Dose 40 MG; Start 09/15/16 at 18:00 Fluconazole (Diflucan) 100 mg QPM PO Last administered on 09/16/16 20:43; Admin Dose 100 MG; Start 09/16/16 at 16:00; Stop 09/30/16 at 21:01 Apixaban (Eliquis) 2.5 mg DAILY PO Last administered on 09/17/16 09:32; Admin Dose 2.5 MG; Start 09/17/16 at 09:00; Stop 09/30/16 at 22:00 Apixaban (Eliquis) 2.5 mg BID PO ; Start 10/01/16 at 09:00 CELESTE BHATT MD Sep 17, 2016 09:51
--- NOTE | 2016-09-17 10:15 | CONS ---
Date/Time of Note Date/Time of Note DATE: 09/17/16 TIME: 10:04 Assessment/Plan Assessment/Plan Chief Complaint/Hosp Course 1) UGIB Hgb remains stable 2) Candidal esophagitis since pt needs eliquis and diflucan can increase its levels will change to caspofungin to treat the sri 3) R foot ulcer (heal and 4th toe) currently I do not appreciate surrounding cellulitis he has a hx of MRSA so will ge a wound cx from the heal hold off on treatment unless MRSA is present 4) DM 5) ESRD 6)recent R CVA Problems: Consultation Date/Type/Reason Admit Date/Time Sep 14, 2016 at 13:19 Date of Consultation: Sep 17, 2016 Type of Consultation: ID Hx of Present Illness pt was admitted on 09/14 due to UGIB on endoscopy he was also found to some yeast in the esophagus no further vomiting since admitted no SOB, no current pain to R foot no D Constitutional: no complaints Eyes: no complaints ENT: no complaints Respiratory: no complaints Cardiovascular: no complaints Gastrointestinal: no complaints Genitourinary: no complaints Musculoskeletal: no complaints Neurologic: focal-weakness Psychological: no complaints Past Medical History CVA R brain last hospitalization Medical History: coronary artery disease, diabetes, high cholesterol, hypertension, pancreatitis, renal disease Past Surgical History Past Surgical Hx: no surgical history, angioplasty, endoscopy, other Social History Alcohol Use: none Smoking Status: Never smoker Drug Use: none Exam/Review of Systems Vital Signs Vitals Vital Signs Date Time Temp Pulse Resp B/P Pulse Ox O2 Delivery O2 Flow Rate FiO2 09/17/16 08:30 91 09/17/16 07:16 98.0 18 149/71 98 09/15/16 16:47 Nasal Cannula 2.0 Intake and Output 09/16/16 09/16/16 09/17/16 15:00 23:00 07:00 Intake Total 500 ml 850 ml 120 ml Output Total 2500 ml 200 ml Balance -2000 ml 650 ml 120 ml Exam Constitutional: alert Head: normocephalic Eyes: nl sclera ENMT: mucosa pink and moist Respiratory: clear to auscultation Cardiovascular: regular rate and rhythm Gastrointestinal: non-tender, soft Extremities: other (L BKA stump is ok, R heal ulcer without redness or increase surround heat, 4th toe dry gangrene without increase in heat around it) Results Result Diagram: 09/16/16 0745 09/16/16 0745 Results 24 hrs Laboratory Tests Test 09/16/16 12:06 09/16/16 17:20 09/16/16 20:03 09/17/16 02:52 Bedside Glucose 123 94 129 86 Test 09/17/16 08:38 Bedside Glucose 113 Medications Medications Current Medications Diagnostic Test (Pha) (Accu-Chek) 1 ea 02 XX Last administered on 09/15/16 02: 00; Admin Dose 1 EA; Start 09/15/16 at 02:00 Miscellaneous Information 1 ea NOTE XX ; Start 09/14/16 at 16:30 Glucose (Glutose) 15 gm Q15M PRN PO DECREASED GLUCOSE; Start 09/14/16 at 16:30 Glucose (Glutose) 22.5 gm Q15M PRN PO DECREASED GLUCOSE; Start 09/14/16 at 16: 30 Dextrose (D50w Syringe) 25 ml Q15M PRN IV DECREASED GLUCOSE; Start 09/14/16 at 16:30 Dextrose (D50w Syringe) 50 ml Q15M PRN IV DECREASED GLUCOSE; Start 09/14/16 at 16:30 Glucagon (Glucagen) 1 mg Q15M PRN IM DECREASED GLUCOSE; Start 09/14/16 at 16:30 Glucose (Glutose) 15 gm Q15M PRN BUCCAL DECREASED GLUCOSE; Start 09/14/16 at 16 :30 Ondansetron HCl (Zofran Inj) 4 mg Q6H PRN IV NAUSEA AND/OR VOMITING; Start 12/22 at 16:30 Nitroglycerin (Nitroglycerin (Sl Tab) 0.4 Mg) 1 tab Q5M PRN SL CHEST PAIN; Start 09/14/16 at 16:30 Acetaminophen (Tylenol Tab) 650 mg Q4 PRN PO PAIN AND OR ELEVATED TEMP; Start 09/14/16 at 18:30 Ascorbic Acid (Vitamin C) 500 mg DAILY PO Last administered on 09/17/16 09:32 ; Admin Dose 500 MG; Start 09/15/16 at 09:00 Atorvastatin Calcium (Lipitor) 20 mg QHS PO Last administered on 09/16/16 20: 43; Admin Dose 20 MG; Start 09/14/16 at 21:00 Bisacodyl (Dulcolax Supp) [address] BM; Start 09/14/16 at 18:30 Calcitriol (Rocaltrol) 0.25 mcg DAILY PO Last administered on 09/17/16 09:31; Admin Dose 0.25 MCG; Start 09/15/16 at 09:00 Loratadine (Claritin) 10 mg DAILY PO Last administered on 09/17/16 09:31; Admin Dose 10 MG; Start 09/15/16 at 09:00 Multivit/Ca Carb/ B Cmplx/FA/Prenat (Sarika-Nahomi) 1 tab DAILY PO Last administered on 09/17/16 09:31; Admin Dose 1 TAB; Start 09/15/16 at 09:00 Saccharomyces Boulardii (Florastor) 500 mg BID PO Last administered on 09:31; Admin Dose 500 MG; Start 09/14/16 at 21:00 Tamsulosin HCl (Flomax) 0.4 mg HS PO Last administered on 09/16/16 20:43; Admin Dose 0.4 MG; Start 09/14/16 at 21:00 Insulin Glargine (Lantus) 10 unit DAILY@20 SC Last administered on 09/16/16 20 :47; Admin Dose 10 UNIT; Start 09/14/16 at 20:00 Epoetin Nito (Epogen (Esrd)) 10,000 units TuThSa@17 SC Last administered on 17:22; Admin Dose 10,000 UNITS; Start 09/15/16 at 17:00 Clopidogrel Bisulfate (plaVIX) 75 mg DAILY PO Last administered on 09/17/16 09 :31; Admin Dose 75 MG; Start 09/15/16 at 18:00 Pantoprazole (Protonix Tab) 40 mg BID@06,18 PO Last administered on 09/17/16 06:14; Admin Dose 40 MG; Start 09/15/16 at 18:00 Fluconazole (Diflucan) 100 mg QPM PO Last administered on 09/16/16 20:43; Admin Dose 100 MG; Start 09/16/16 at 16:00; Stop 09/30/16 at 21:01 Apixaban (Eliquis) 2.5 mg DAILY PO Last administered on 09/17/16 09:32; Admin Dose 2.5 MG; Start 09/17/16 at 09:00; Stop 09/30/16 at 22:00 Apixaban (Eliquis) 2.5 mg BID PO ; Start 10/01/16 at 09:00 PEDRO PATRICK MD Sep 17, 2016 10:14
--- NOTE | 2016-09-17 13:05 | CONS ---
DATE OF ADMISSION: 09/14/2016 DATE OF CONSULTATION: 09/14/2016 Thank you for having me see this patient. HISTORY OF PRESENT ILLNESS: As you know, he is a 70-year-old gentleman who I am asked regarding hematemesis. The patient was recently admitted to the hospital because of a stroke and needing 2 cardiac stents placed. On discharge, he was placed on Plavix, Eliquis and aspirin. Yesterday, the patient developed vomiting of coffee-ground material. Because of this he was hospitalized. He was noted to have a hemoglobin of 9.7 and hematocrit of 30.4. Of note, in 2011 he had an endoscopy because of vomiting. At that point, he was noted to have a hiatal hernia, substantial antral gastritis and duodenal nodules. Biopsies were performed at that time. 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 GE junction biopsies were negative for any intestinal metaplasia. Nonetheless, the patient denies any knowledge of peptic ulcer disease. He denies any heartburn, ingestion, dysphagia, odynophagia, nausea or vomiting. He denies any antecedent bleeding tendencies. PAST MEDICAL HISTORY: Hospitalizations for vasectomy, cataract removal, tonsillectomy, cardiac stent placement and peripheral vascular bypass. Adult illnesses significant for diabetes, hypertension, hyperlipidemia, pancreatitis, urinary tract infections, chronic renal failure requiring dialysis, cerebrovascular accident and a myocardial infarction. Childhood . ALLERGIES: NONE KNOWN. INJURIES: None. MEDICATION: Currently include insulin, pantoprazole, Zofran, nitroglycerin, Tylenol. SOCIAL HISTORY: The patient used to smoke. He does not drink alcohol currently. He is retired from [employer]. FAMILY HISTORY: Remarkable for a brother who had Crohn's disease. REVIEW OF SYSTEMS: Negative except as noted above. PHYSICAL EXAMINATION: GENERAL: Shows in general, patient to be a well-developed, elderly-appearing, white male, who appears much older than his stated age. VITAL SIGNS: Temperature 97.6, pulse 70, respirations 20, blood pressure 148/69. SKIN: Clear. HEENT: Negative. CHEST: Clear to percussion, auscultation. CARDIAC: No murmurs, rubs or gallops. ABDOMEN: Soft, nontender, liver edge . Spleen not palpable. RECTAL: Deferred as patient is currently on dialysis. LABORATORY: Remarkable for a white count 10.2, hemoglobin 9.7, hematocrit 30.4, platelets 169. PT/INR 1.2, PTT 33. Chemistries: BUN 60, creatinine 7.4. IMPRESSION: The patient has had an episode of hematemesis. I note his cardiac stent placement and recent cerebrovascular accident that have required anticoagulation. I have discussed the situation with Dr. Migue Nunez. Given the need for continued anticoagulation, we will proceed with endoscopy to rule out more substantial ulcer disease or other issues which might preclude anticoagulation. PLAN: 1. I have discussed the above in depth with the patient. 2. Continue pantoprazole drip. 3. Await stools for occult blood. 4. Await formal input of Cardiology. 5. Endoscopy scheduled for 3:30 tomorrow. 6. Further recommendations to follow clinical course. Dictated By: Adalberto Cotton MD /angelica/judah /Document#: [id number]
--- NOTE | 2016-09-17 13:08 | GILP ---
DATE OF PROCEDURE: 09/15/2016 PROCEDURE PERFORMED: Upper gastrointestinal endoscopy and brushing. INDICATION: GI bleeding. FINDINGS: After informed consent, the patient was placed in the lateral position, sedated per Anesthesia. The Olympus video endoscope was easily passed in the patient's esophagus and advanced to the stomach. The pylorus was seen. The duodenal bulb and the second portion of the duodenum were examined. The second portion of the duodenum appeared normal. Within the bulb there were hemorrhagic nodules. Of note, these previously had been biopsied and shown to be gastric heterotopia. The instrument was moved to the patient's stomach. This was carefully examined, including procedure. No bleeding lesions were noted within the stomach. The instrument was removed through a small hiatal hernia. In the esophagus there were whitish plaques noted throughout the esophagus. Brushings of this were performed to rule out Traci. There was no bleeding from these sites. The instrument was moved to the proximal esophagus which appeared normal. The instrument was removed from the patient's mouth. The patient tolerated the procedure well. COMPLICATIONS: None. IMPRESSION: 1. Suspect bleeding may have been from gastric heterotopic nodules in duodenum in associated with the anticoagulation. 2. Hiatal hernia. 3. Possible Tarci esophagitis - await brushings for confirmation. PLAN: 1. Continue proton pump inhibitor therapy. 2. Follow pending pathology. Dictated By: Adalberto Cotton MD /angelica/terrie /Document#: [id number] CC: Migue Nunez MD;*[facility]*
[2016-09-17] MEDS: CASPOFUNGIN 50 MG in SOD CHLORIDE 0.9% 250 ML IVPB SCH (13:10)
[2016-09-17] MEDS: EPOETIN 10000 UNITS/1 ML INJ (ESRD) SC SCH (17:55)
[2016-09-17] MEDS: ATORVASTATIN 20 MG TAB PO SCH (20:45)
[2016-09-17] MEDS: TAMSULOSIN (SR) 0.4 MG CAP PO SCH (20:45)
[2016-09-17] MEDS: INSULIN GLARGINE [LANtus] 3 ML PEN SC SCH (20:48)
[2016-09-18] VITALS (14 sets, daily range): BP systolic 121–158; BP diastolic 67–84; PULSE 78–88; RESP 17–18
[2016-09-18] MEDS: ACCU-CHEK XX SCH (02:20)
--- NOTE | 2016-09-18 06:26 | CONS ---
Date/Time of Note Date/Time of Note DATE: 09/18/16 TIME: 06:23 Assessment/Plan Assessment/Plan Chief Complaint/Hosp Course 1) UGIB Hgb remains stable 2) Candidal esophagitis since pt needs eliquis and diflucan can increase its levels will change to caspofungin to treat the sri 3) R foot ulcer (heal and 4th toe) currently I do not appreciate surrounding cellulitis he has a hx of MRSA so will ge a wound cx from the heal hold off on treatment unless MRSA is present 09/18 - no cellulitis seen, await wound cx, continue to observe off antibiotics 4) DM 5) ESRD 6)recent R CVA Problems: Consultation Date/Type/Reason Admit Date/Time Sep 14, 2016 at 13:19 Initial Consult Date 09/17/16 Type of Consultation: ID 24 HR Interval Summary Free Text/Dictation pt asleep but spoke to nurse no V, D pt is eating Exam/Review of Systems Vital Signs Vitals Vital Signs Date Time Temp Pulse Resp B/P Pulse Ox O2 Delivery O2 Flow Rate FiO2 09/18/16 04:00 85 09/18/16 04:00 98.2 17 148/70 92 09/15/16 16:47 Nasal Cannula 2.0 Intake and Output 09/17/16 09/17/16 09/18/16 15:00 23:00 07:00 Intake Total 250 ml 800 ml 120 ml Output Total 1800 ml Balance 250 ml -1000 ml 120 ml Exam Respiratory: clear to auscultation Cardiovascular: regular rate and rhythm Gastrointestinal: non-tender, soft Extremities: other (R foot no change) Results Result Diagram: 09/16/16 0745 09/16/16 0745 Results 24 hrs Laboratory Tests Test 09/17/16 08:38 09/17/16 12:10 09/17/16 17:52 09/17/16 20:43 Bedside Glucose 113 115 166 160 Test 09/18/16 02:17 Bedside Glucose 115 Medications Medications Current Medications Diagnostic Test (Pha) (Accu-Chek) 1 ea 02 XX Last administered on 09/18/16t 02: 20; Admin Dose 1 EA; Start 09/15/16 at 02:00 Miscellaneous Information 1 ea NOTE XX ; Start 09/14/16 at 16:30 Glucose (Glutose) 15 gm Q15M PRN PO DECREASED GLUCOSE; Start 09/14/16 at 16:30 Glucose (Glutose) 22.5 gm Q15M PRN PO DECREASED GLUCOSE; Start 09/14/16 at 16: 30 Dextrose (D50w Syringe) 25 ml Q15M PRN IV DECREASED GLUCOSE; Start 09/14/16 at 16:30 Dextrose (D50w Syringe) 50 ml Q15M PRN IV DECREASED GLUCOSE; Start 09/14/16 at 16:30 Glucagon (Glucagen) 1 mg Q15M PRN IM DECREASED GLUCOSE; Start 09/14/16 at 16:30 Glucose (Glutose) 15 gm Q15M PRN BUCCAL DECREASED GLUCOSE; Start 09/14/16 at 16 :30 Ondansetron HCl (Zofran Inj) 4 mg Q6H PRN IV NAUSEA AND/OR VOMITING; Start 12/22 at 16:30 Nitroglycerin (Nitroglycerin (Sl Tab) 0.4 Mg) 1 tab Q5M PRN SL CHEST PAIN; Start 09/14/16 at 16:30 Acetaminophen (Tylenol Tab) 650 mg Q4 PRN PO PAIN AND OR ELEVATED TEMP; Start 09/14/16 at 18:30 Ascorbic Acid (Vitamin C) 500 mg DAILY PO Last administered on 09/17/16 09:32 ; Admin Dose 500 MG; Start 09/15/16 at 09:00 Atorvastatin Calcium (Lipitor) 20 mg QHS PO Last administered on 09/17/16 20: 45; Admin Dose 20 MG; Start 09/14/16 at 21:00 Bisacodyl (Dulcolax Supp) 10 mg DAILY PRN SC BM; Start 09/14/16 at 18:30 Calcitriol (Rocaltrol) 0.25 mcg DAILY PO Last administered on 09/17/16 09:31; Admin Dose 0.25 MCG; Start 09/15/16 at 09:00 Loratadine (Claritin) 10 mg DAILY PO Last administered on 09/17/16 09:31; Admin Dose 10 MG; Start 09/15/16 at 09:00 Multivit/Ca Carb/ B Cmplx/FA/Prenat (Sarika-Nahomi) 1 tab DAILY PO Last administered on 09/17/16 09:31; Admin Dose 1 TAB; Start 09/15/16 at 09:00 Saccharomyces Boulardii (Florastor) 500 mg BID PO Last administered on 20:46; Admin Dose 500 MG; Start 09/14/16 at 21:00 Tamsulosin HCl (Flomax) 0.4 mg HS PO Last administered on 09/17/16 20:45; Admin Dose 0.4 MG; Start 09/14/16 at 21:00 Insulin Glargine (Lantus) 10 unit DAILY@20 SC Last administered on 09/17/16 20 :48; Admin Dose 10 UNIT; Start 09/14/16 at 20:00 Epoetin Nito (Epogen (Esrd)) 10,000 units TuThSa@17 SC Last administered on 17:55; Admin Dose 10,000 UNITS; Start 09/15/16 at 17:00 Clopidogrel Bisulfate (plaVIX) 75 mg DAILY PO Last administered on 09/17/16 09 :31; Admin Dose 75 MG; Start 09/15/16 at 18:00 Pantoprazole (Protonix Tab) 40 mg BID@06,18 PO Last administered on 09/17/16 17:54; Admin Dose 40 MG; Start 09/15/16 at 18:00 Apixaban (Eliquis) 2.5 mg DAILY PO Last administered on 09/17/16 09:32; Admin Dose 2.5 MG; Start 09/17/16 at 09:00; Stop 09/30/16 at 22:00 Apixaban 2.5 mg 2.5 mg BID PO ; Start 10/01/16 at 09:00 Caspofungin/ Sodium Chloride (Cancidas/NS) 250 ml @ 250 mls/hr Q24H IVPB Last administered on 09/17/16 13:10; Admin Dose 250 MLS/HR; Start 09/17/16 at 11:30 PEDRO PATRICK MD Sep 18, 2016 06:25
[2016-09-18] MEDS: PANTOPRAZOLE (EC) 40 MG TAB PO SCH (06:30)
--- NOTE | 2016-09-18 07:41 | PN ---
Date/Time of Note Date/Time of Note DATE: 09/18/16 TIME: 07:38 Assessment/Plan Lines/Catheters IV Catheter Type (from [facility]): Saline Lock Jimenez in Place (from [facility]): No Assessment/Plan Chief Complaint/Hosp Course No current vascular issues, will continue to follow Problems: Subjective 24 Hr Interval Summary no new vascular events overnight Exam/Review of Systems Vital Signs Vitals Vital Signs Date Time Temp Pulse Resp B/P Pulse Ox O2 Delivery O2 Flow Rate FiO2 09/18/16 07:18 98.0 88 18 156/68 98 09/15/16 16:47 Nasal Cannula 2.0 Intake and Output 09/17/16 09/17/16 09/18/16 15:00 23:00 07:00 Intake Total 250 ml 800 ml 120 ml Output Total 1800 ml Balance 250 ml -1000 ml 120 ml Exam Free Text/Dictation Sleeping, woken and oriented CTAB S1S2 present soft NTND BS2 RLE: palpable femoral pulse, palpable graft at the espinal as it crosses over, 2nd toe gangrene stable and dry, no erythema, heel ulcer/eschar stable RUE: incision sites clean and dry, LLE: left perm catheter intact and clean site Results Result Diagram: 09/16/16 0745 09/16/16 0745 MARTÍNEZ ROSADO MD Sep 18, 2016 07:41
[2016-09-18] MEDS: INSULIN ASPART [NOVOLOG] 3 ML PEN SC SCH ×2 (07:55→11:50)
[2016-09-18 08:02] LABS: ADD SCAN DIFF NO
[2016-09-18 08:20] LABS: BASOPHIL # 0.1 10^3/ul (0.0-0.1); BASOPHILS % 0.7 % (0.0-2.0); EOSINOPHILS # 0.4 10^3/ul (0.0-0.5); EOSINOPHILS % 6.4 % (0.0-7.0); HEMATOCRIT 31.8 % (42.0-52.0); HEMOGLOBIN 9.9 g/dl (14.0-18.0); LYMPHOCYTES # 1.4 10^3/ul (0.8-2.9); LYMPHOCYTES % 20.5 % (15.0-51.0); MEAN CORPUSCULAR HEMOGLOBIN 29.5 pg (29.0-33.0); MEAN CORPUSCULAR HGB CONC 31.1 g/dl (32.0-37.0); MEAN CORPUSCULAR VOLUME 94.6 fl (82.0-101.0); MEAN PLATELET VOLUME 10.1 fl (7.4-10.4); MONOCYTE # 0.5 10^3/ul (0.3-0.9); MONOCYTES % 7.7 % (0.0-11.0); NEUTROPHIL # 4.4 10^3/ul (1.6-7.5); NEUTROPHILS % 64.1 % (39.0-77.0); PLATELET COUNT 150 10^3/UL (140-415); RED BLOOD COUNT 3.36 10^6/ul (4.70-6.10); RED CELL DISTRIBUTION WIDTH 15.7 % (11.5-14.5); WHITE BLOOD COUNT 6.9 10^3/ul (4.8-10.8)
--- NOTE | 2016-09-18 08:38 | DS ---
Date/Time of Note Date/Time of Note DATE: 09/18/16 TIME: 08:25 Discharge Summary Admission/Discharge Info Admit Date/Time Sep 14, 2016 at 13:19 Discharge Date/Time 09/18/16 at 10 AM Discharge Diagnosis 1. Upper gastrointestinal bleeding 2 end-stage renal disease on maintenance hemodialysis Wednesday and Wednesday 3. Insulin-dependent diabetes mellitus 4. Peripheral artery disease with right foot gangrenous changes 5. Postural hypotension 6. Coronary artery disease 7. History of atrial flutter 8. Cerebrovascular accident Procedures Upper GI endoscopy, hemodialysis, blood transfusion Hx of Present Illness Chief complaint: Vomiting blood History of present illness: This 70-year-old man was in his usual state of health until last night he noticed some epigastric pain. Then this morning he had several episodes of vomiting. The vomitus was coffee ground material consistent with gastrointestinal bleeding. The patient at this time was residing at the [facility]. He was transported from there to the [facility] emergency room where he was evaluated. The patient was given intravenous fluid. He was started on a Protonix drip. The patient was just discharged from this hospital 3 days ago. During that admission he had several medical problems. He was initially admitted to the hospital 2 weeks ago because of a gangrenous right fourth toe and cellulitis of the right lower leg. The patient on admission was found to have elevated troponin levels. He underwent a left heart catheterization and had 2 stents placed. The patient was started on aspirin and Plavix after the coronary artery stents were placed. After the left heart catheterization the patient developed atrial flutter with a variable ventricular rate. The patient after 5 days was going to have an amputation of the right fourth toe. He was in preparation for surgery that day and he was found to have altered mental status with a left facial weakness and left arm and leg weakness. He had a CAT scan of the brain which showed a right frontal lobe infarct. The patient was diagnosed with a cerebrovascular accident. In view of this he was eventually started on Eliquis 2.5 mg twice a day. The patient eventually improved enough to be able to be [facility] for further physical therapy. The patient has end-stage renal disease and is on maintenance hemodialysis. He was due for hemodialysis today. Hospital Course No current vascular issues, will continue to follow Home Meds Reported Medications Tamsulosin Hcl* (Tamsulosin Hcl*) 0.4 Mg Cap.er.24h, 0.4 MG PO HS, CAP 03/18/16 Bisacodyl (Dulcolax) 10 Mg Supp.rect, 10 MG RC DAILY Y for BM, SUPP.RECT 03/18/16 Multivit/Ca Carb/B Cmplx/Fa* (Sarika-Nahomi*) 1 Tab Tab, 1 TAB PO DAILY, TAB 03/18/16 Cholecalciferol* (Vitamin D3*) 1,000 Unit Tablet, 27544 UNIT PO QMONTHLY, TAB EVERY 8TH OF THE MONTH 03/18/16 Atorvastatin Calcium* (Atorvastatin Calcium*) 20 Mg Tablet, 20 MG PO QHS, #30 TAB 03/18/16 Ascorbic Acid* (Vitamin C*) 500 Mg Capsule.sa, 500 MG PO DAILY, CAP 02/25/16 Multivitamin* (Daily Value*) 1 Each Tablet, 1 TAB PO DAILY, TAB 02/25/16 Hydrocodone/Acetaminophen (Salem 5-325 Tablet) 1 Each Tablet, 1 EACH PO Q4H WHILE AWAKE Y for SEVERE PAIN LEVEL 7-10, TAB 02/25/16 Insulin Aspart* (Novolog Insulin Pen*) 100 Unit/Ml Soln, 0 SC AC MEALS AND BEDTIME, EA 61-149 =0 UNITS 150-200 =2 UNITS 201-250 =4 UNITS 251-300 =6 UNITS 301-350 =8 UNITS 351-400 =10UNITS OVER 400 GIVE 12 UNITS AND CALL MD UNDER 60 CALL MD 02/25/16 Loratadine* (Loratadine*) 10 Mg Tablet, 10 MG PO DAILY, #30 TAB 02/25/16 Insulin Glargine* (Lantus*) 100 Unit/Ml Soln, 20 UNIT SC QHS, #1 VIAL 02/25/16 Atorvastatin Calcium* (Atorvastatin Calcium*) 20 Mg Tablet, 20 MG PO QHS, #30 TAB 02/25/16 Acetaminophen* (Acetaminophen*) 650 Mg Tablet, 650 MG PO Q4 Y for PAIN AND OR ELEVATED TEMP, #30 TAB 02/25/16 Saccharomyces Boulardii* (Florastor*) 250 Mg Cap, 500 MG PO BID, CAP 01/06/16 Xulalk-Giknubyw-Nxrgucs* (Nisha DANGELO* 24,000) 24,000 L-76,000-120,000 Unit Capsule.dr, 2 CAP PO WITH MEALS, CAP 01/06/16 Calcium Acetate* (Calcium Acetate*) 667 Mg Capsule, 667 MG PO WITH MEALS, #30 CAP 01/06/16 Calcitriol* (Calcitriol*) 0.25 Mcg Capsule, 0.25 MCG PO DAILY, CAP 01/06/16 Aspirin (Aspirin) 81 Mg Chew, 81 MG PO DAILY, TAB.CHEW 01/06/16 Discontinued Reported Medications [Fosrenol] No Conflict Check, 1 GM PO TID 03/18/16 Saccharomyces Boulardii* (Florastor*) 250 Mg Cap, 500 MG PO BID, CAP 03/18/16 Follow-up Plan This patient was admitted to the hospital on 09/14/2016 after he developed coffee ground emesis. The patient was a resident at [facility]. He was transferred to the hospital and admitted here for further evaluation and treatment. He was seen in consultation by Dr. Adalberto Isabel a local electrical and instrument technician. The patient underwent an upper GI endoscopy by Dr. George . 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 He also found Traci esophagitis. Dr. George felt that the patient could be restarted on anticoagulants with a double dose PPI. The patient was seen in consultation by Dr. Kim , Dr. Treadwell , Dr Pond and Dr. Cotton . The patient had his routine hemodialysis treatments in the hospital. The the patient also received a blood transfusion. The patient was bedridden during his hospitalization. He was on the telemetry floor. The patient will be transferred back to [facility] today. He will continue outpatient hemodialysis treatments. I will follow the patient at [facility]. The patient will continue to be a DNR status. Primary Care Provider Migue Bhatt MD Time spent on discharge: > 30 minutes Pending Labs Laboratory Tests Test 09/17/16 08:38 09/17/16 12:10 09/17/16 17:52 09/17/16 20:43 Bedside Glucose 113mg/dL (70-220) 115mg/dL (70-220) 166mg/dL (70-220) 160mg/dL (70-220) Test 09/18/16 02:17 Bedside Glucose 115mg/dL (70-220) MIGUE BHATT MD Sep 18, 2016 08:37
--- NOTE | 2016-09-18 08:44 | PDOCDIS ---
Discharge Instructions DIAGNOSIS Discharge Diagnosis 1. Upper gastrointestinal bleeding 2 end-stage renal disease on maintenance hemodialysis Wednesday and Wednesday 3. Insulin-dependent diabetes mellitus 4. Peripheral artery disease with right foot gangrenous changes 5. Postural hypotension 6. Coronary artery disease 7. History of atrial flutter 8. Cerebrovascular accident CONDITION Patient Condition: Fair HOME CARE INSTRUCTIONS: Diet Instructions: Special Diet: MECH SOFT ACTIVITY: Activity Restrictions: Slowly Increase Activity Rest between Activity Avoid heavy lifting Bathing Restrictions: Shower FOLLOW UP/APPOINTMENTS Follow-up Plan CELESTE Larios MD Sep 18, 2016 08:44
[2016-09-18] MEDS: ASCORBIC ACID 500 MG TAB PO SCH (08:47)
[2016-09-18] MEDS: CREON (24K-76K-120K) 1 CAP PO SCH ×2 (08:47→12:05)
[2016-09-18] MEDS: APIXABAN 5 MG TABLET PO SCH (08:47)
[2016-09-18] MEDS: SACCHAROMYCES BOULARDII 250 MG CAP PO SCH (08:47)
[2016-09-18] MEDS: MULTIVIT/CA CARB/B CMPLX/FA TAB PO SCH (08:47)
[2016-09-18] MEDS: CALCIUM ACETATE 667 MG CAP PO SCH ×2 (08:47→12:05)
[2016-09-18] MEDS: LORATADINE 10 MG TAB PO SCH (08:47)
[2016-09-18] MEDS: CALCITRIOL 0.25 MCG CAP PO SCH (08:47)
[2016-09-18] MEDS: CLOPIDOGREL 75 MG TAB PO SCH (08:47)
--- NOTE | 2016-09-18 11:57 | CONS ---
Date/Time of Note Date/Time of Note DATE: 09/18/16 TIME: 11:48 Assessment/Plan Assessment/Plan Chief Complaint/Hosp Course 70 yo male with multiple medical problems including DM, ESRD, CAD, stroke, recent admission for acute GI bleed with right foot 4th digit dry gangrene and heel ulceration. Recommend continuing daily dressing changes using betadine dressing. Patient would benefit from continuing with PO antibiotics per ID recommendations. Follow up [facility] Problems: Consultation Date/Type/Reason Admit Date/Time Sep 14, 2016 at 13:19 Hx of Present Illness Patient seen at bedside today. He had a recent admission for possible GI bleed. He has been residing in nursing facility. According to patient daily dressing change of right foot were done daily with betadine. He is not taking any antibiotics at this time per ID recommendations. He did have culture of right heel taken pending results. Patient is pending discharge later today. Constitutional: no complaints Eyes: no complaints ENT: no complaints Respiratory: no complaints Cardiovascular: no complaints Gastrointestinal: no complaints Genitourinary: no complaints Musculoskeletal: no complaints Neurologic: focal-weakness Psychological: no complaints Past Medical History Medical History: coronary artery disease, diabetes, high cholesterol, hypertension, pancreatitis, renal disease Past Surgical History Past Surgical Hx: no surgical history, angioplasty, endoscopy, other Social History Alcohol Use: none Smoking Status: Never smoker Drug Use: none Exam/Review of Systems Vital Signs Vitals Vital Signs Date Time Temp Pulse Resp B/P Pulse Ox O2 Delivery O2 Flow Rate FiO2 09/18/16 11:33 98.1 91 17 143/69 95 09/15/16 16:47 Nasal Cannula 2.0 Intake and Output 09/17/16 09/17/16 09/18/16 15:00 23:00 07:00 Intake Total 250 ml 800 ml 120 ml Output Total 1800 ml Balance 250 ml -1000 ml 120 ml Exam Patient in acute distress today, seen at bedside. Right 4th digit dry gangrene, there seems to be some swelling proximal to right 4th digit. Right heel ulceration dry and intact with no drainage noted. Results Result Diagram: 09/18/16 0659 09/16/16 0745 Results 24 hrs Laboratory Tests Test 09/17/16 12:10 09/17/16 17:52 09/17/16 20:43 09/18/16 02:17 Bedside Glucose 115 166 160 115 Test 09/18/16 06:59 09/18/16 08:31 White Blood Count 6.9 Red Blood Count 3.36 L Hemoglobin 9.9 L Hematocrit 31.8 L Mean Corpuscular Volume 94.6 Mean Corpuscular Hemoglobin 29.5 Mean Corpuscular Hemoglobin Concent 31.1 L Red Cell Distribution Width 15.7 H Platelet Count 150 Mean Platelet Volume 10.1 Neutrophils % 64.1 Lymphocytes % 20.5 Monocytes % 7.7 Eosinophils % 6.4 Basophils % 0.7 Nucleated Red Blood Cells % 0.0 Neutrophils # 4.4 Lymphocytes # 1.4 Monocytes # 0.5 Eosinophils # 0.4 Basophils # 0.1 Nucleated Red Blood Cells # 0.0 Erythrocyte Sedimentation Rate 40.0 H C-Reactive Protein 3.1 H Bedside Glucose 98 Medications Medications Current Medications Diagnostic Test (Pha) (Accu-Chek) 1 ea 02 XX Last administered on 09/18/16t 02: 20; Admin Dose 1 EA; Start 09/15/16 at 02:00 Miscellaneous Information 1 ea NOTE XX ; Start 09/14/16 at 16:30 Glucose (Glutose) 15 gm Q15M PRN PO DECREASED GLUCOSE; Start 09/14/16 at 16:30 Glucose (Glutose) 22.5 gm Q15M PRN PO DECREASED GLUCOSE; Start 09/14/16 at 16: 30 Dextrose (D50w Syringe) 25 ml Q15M PRN IV DECREASED GLUCOSE; Start 09/14/16 at 16:30 Dextrose (D50w Syringe) 50 ml Q15M PRN IV DECREASED GLUCOSE; Start 09/14/16 at 16:30 Glucagon (Glucagen) 1 mg Q15M PRN IM DECREASED GLUCOSE; Start 09/14/16 at 16:30 Glucose (Glutose) 15 gm Q15M PRN BUCCAL DECREASED GLUCOSE; Start 09/14/16 at 16 :30 Ondansetron HCl (Zofran Inj) 4 mg Q6H PRN IV NAUSEA AND/OR VOMITING; Start 12/22 at 16:30 Nitroglycerin (Nitroglycerin (Sl Tab) 0.4 Mg) 1 tab Q5M PRN SL CHEST PAIN; Start 09/14/16 at 16:30 Acetaminophen (Tylenol Tab) 650 mg Q4 PRN PO PAIN AND OR ELEVATED TEMP; Start 09/14/16 at 18:30 Ascorbic Acid (Vitamin C) 500 mg DAILY PO Last administered on 09/18/16 08:47 ; Admin Dose 500 MG; Start 09/15/16 at 09:00 Atorvastatin Calcium (Lipitor) 20 mg QHS PO Last administered on 09/17/16 20: 45; Admin Dose 20 MG; Start 09/14/16 at 21:00 Bisacodyl (Dulcolax Supp) 10 mg DAILY PRN [place] BM; Start 09/14/16 at 18:30 Calcitriol (Rocaltrol) 0.25 mcg DAILY PO Last administered on 09/18/16 08:47; Admin Dose 0.25 MCG; Start 09/15/16 at 09:00 Loratadine (Claritin) 10 mg DAILY PO Last administered on 09/18/16 08:47; Admin Dose 10 MG; Start 09/15/16 at 09:00 Multivit/Ca Carb/ B Cmplx/FA/Prenat (Sarika-Nahomi) 1 tab DAILY PO Last administered on 09/18/16 08:47; Admin Dose 1 TAB; Start 09/15/16 at 09:00 Saccharomyces Boulardii (Florastor) 500 mg BID PO Last administered on 08:47; Admin Dose 500 MG; Start 09/14/16 at 21:00 Tamsulosin HCl (Flomax) 0.4 mg HS PO Last administered on 09/17/16 20:45; Admin Dose 0.4 MG; Start 09/14/16 at 21:00 Insulin Glargine (Lantus) 10 unit DAILY@20 SC Last administered on 09/17/16 20 :48; Admin Dose 10 UNIT; Start 09/14/16 at 20:00 Epoetin Nito (Epogen (Esrd)) 10,000 units TuThSa@17 SC Last administered on 17:55; Admin Dose 10,000 UNITS; Start 09/15/16 at 17:00 Clopidogrel Bisulfate (plaVIX) 75 mg DAILY PO Last administered on 09/18/16 08 :47; Admin Dose 75 MG; Start 09/15/16 at 18:00 Pantoprazole (Protonix Tab) 40 mg BID@18 PO Last administered on 09/18/16 06:30; Admin Dose 40 MG; Start 09/15/16 at 18:00 Apixaban (Eliquis) 2.5 mg DAILY PO Last administered on 09/18/16 08:47; Admin Dose 2.5 MG; Start 09/17/16 at 09:00; Stop 09/30/16 at 22:00 Apixaban 2.5 mg 2.5 mg BID PO ; Start 10/01/16 at 09:00 Caspofungin/ Sodium Chloride (Cancidas/NS) 250 ml @ 250 mls/hr Q24H IVPB Last administered on 09/17/16 13:10; Admin Dose 250 MLS/HR; Start 09/17/16 at 11:30 CORIE ROSA DPBeau Sep 18, 2016 11:56
[2016-09-18] MEDS: CASPOFUNGIN 50 MG in SOD CHLORIDE 0.9% 250 ML IVPB SCH (12:05)
--- NOTE | 2016-09-18 17:30 | CONS ---
Date/Time of Note Date/Time of Note DATE: 09/18/16 TIME: 17:29 Assessment/Plan Assessment/Plan Chief Complaint/Hosp Course # UGI Bleed- no sig hgb drop, hgb stable no current bleeding. EGD yesterday, pt with hemorrhagic nodules no ulceration, bleeding vessel. # recent Non-STEMI- pt with diffuse 3VCAD s/p PCI to LAD with SYDNI x 2 # Acute CVA likely embolic from aflutter, carotid u/s negative for sig lesion # Atrial flutter - currently nsr # Chronic renal failure on dialysis. # Peripheral vascular disease status post left BKA, status post right fem-tib bypass, now with right toe gangrene patent graft # Orthostatic hypotension. # Anemia of chronic disease. # Moderate aortic stenosis. # Hyperlipidemia controlled. # Type 2 diabetes. # Mild aortic regurgitation on echocardiography. # Benign prostatic hypertrophy # Right toe gangrene >> plavix 75mg po given recent SYDNI >> low dose apixiban given bleeding risk >> high dose ppi >> metoprolol for heart rate control ( no further atrial flutter on tele) >> cont statin Problems: Consultation Date/Type/Reason Admit Date/Time Sep 14, 2016 at 13:19 Type of Consultation: ID Exam/Review of Systems Vital Signs Vitals Vital Signs Date Time Temp Pulse Resp B/P Pulse Ox O2 Delivery O2 Flow Rate FiO2 09/18/16 16:00 78 09/18/16 15:43 98.0 18 143/83 96 09/15/16 16:47 Nasal Cannula 2.0 Intake and Output 09/17/16 09/17/16 09/18/16 15:00 23:00 07:00 Intake Total 250 ml 800 ml 120 ml Output Total 1800 ml Balance 250 ml -1000 ml 120 ml Results Result Diagram: 09/18/16 0659 09/16/16 0745 Results 24 hrs Laboratory Tests Test 09/17/16 17:52 09/17/16 20:43 09/18/16 02:17 09/18/16 06:59 Bedside Glucose 166 160 115 White Blood Count 6.9 Red Blood Count 3.36 L Hemoglobin 9.9 L Hematocrit 31.8 L Mean Corpuscular Volume 94.6 Mean Corpuscular Hemoglobin 29.5 Mean Corpuscular Hemoglobin Concent 31.1 L Red Cell Distribution Width 15.7 H Platelet Count 150 Mean Platelet Volume 10.1 Neutrophils % 64.1 Lymphocytes % 20.5 Monocytes % 7.7 Eosinophils % 6.4 Basophils % 0.7 Nucleated Red Blood Cells % 0.0 Neutrophils # 4.4 Lymphocytes # 1.4 Monocytes # 0.5 Eosinophils # 0.4 Basophils # 0.1 Nucleated Red Blood Cells # 0.0 Erythrocyte Sedimentation Rate 40.0 H C-Reactive Protein 3.1 H Test 09/18/16 08:31 09/18/16 12:09 Bedside Glucose 98 136 Medications Medications Current Medications Diagnostic Test (Pha) (Accu-Chek) 1 ea 02 XX Last administered on 09/18/16 02: 20; Admin Dose 1 EA; Start 09/15/16 at 02:00 Miscellaneous Information 1 ea NOTE XX ; Start 09/14/16 at 16:30 Glucose (Glutose) 15 gm Q15M PRN PO DECREASED GLUCOSE; Start 09/14/16 at 16:30 Glucose (Glutose) 22.5 gm Q15M PRN PO DECREASED GLUCOSE; Start 09/14/16 at 16: 30 Dextrose (D50w Syringe) 25 ml Q15M PRN IV DECREASED GLUCOSE; Start 09/14/16 at 16:30 Dextrose (D50w Syringe) 50 ml Q15M PRN IV DECREASED GLUCOSE; Start 09/14/16 at 16:30 Glucagon (Glucagen) 1 mg Q15M PRN IM DECREASED GLUCOSE; Start 09/14/16 at 16:30 Glucose (Glutose) 15 gm Q15M PRN BUCCAL DECREASED GLUCOSE; Start 09/14/16 at 16 :30 Ondansetron HCl (Zofran Inj) 4 mg Q6H PRN IV NAUSEA AND/OR VOMITING; Start 12/22 at 16:30 Nitroglycerin (Nitroglycerin (Sl Tab) 0.4 Mg) 1 tab Q5M PRN SL CHEST PAIN; Start 09/14/16 at 16:30 Acetaminophen (Tylenol Tab) 650 mg Q4 PRN PO PAIN AND OR ELEVATED TEMP; Start 09/14/16 at 18:30 Ascorbic Acid (Vitamin C) 500 mg DAILY PO Last administered on 09/18/16 08:47 ; Admin Dose 500 MG; Start 09/15/16 at 09:00 Atorvastatin Calcium (Lipitor) 20 mg QHS PO Last administered on 09/17/16 20: 45; Admin Dose 20 MG; Start 09/14/16 at 21:00 Bisacodyl (Dulcolax Supp) 10 mg DAILY PRN [place] BM; Start 09/14/16 at 18:30 Calcitriol (Rocaltrol) 0.25 mcg DAILY PO Last administered on 09/18/16 08:47; Admin Dose 0.25 MCG; Start 09/15/16 at 09:00 Loratadine (Claritin) 10 mg DAILY PO Last administered on 09/18/16 08:47; Admin Dose 10 MG; Start 09/15/16 at 09:00 Multivit/Ca Carb/ B Cmplx/FA/Prenat (Sarika-Nahomi) 1 tab DAILY PO Last administered on 09/18/16 08:47; Admin Dose 1 TAB; Start 09/15/16 at 09:00 Saccharomyces Boulardii (Florastor) 500 mg BID PO Last administered on 08:47; Admin Dose 500 MG; Start 09/14/16 at 21:00 Tamsulosin HCl (Flomax) 0.4 mg HS PO Last administered on 09/17/16 20:45; Admin Dose 0.4 MG; Start 09/14/16 at 21:00 Insulin Glargine (Lantus) 10 unit DAILY@20 SC Last administered on 09/17/16 20 :48; Admin Dose 10 UNIT; Start 09/14/16 at 20:00 Epoetin Nito (Epogen (Esrd)) 10,000 units TuThSa@17 SC Last administered on 17:55; Admin Dose 10,000 UNITS; Start 09/15/16 at 17:00 Clopidogrel Bisulfate (plaVIX) 75 mg DAILY PO Last administered on 09/18/16 08 :47; Admin Dose 75 MG; Start 09/15/16 at 18:00 Pantoprazole (Protonix Tab) 40 mg BID@06,18 PO Last administered on 09/18/16 06:30; Admin Dose 40 MG; Start 09/15/16 at 18:00 Apixaban (Eliquis) 2.5 mg DAILY PO Last administered on 09/18/16 08:47; Admin Dose 2.5 MG; Start 09/17/16 at 09:00; Stop 09/30/16 at 22:00 Apixaban 2.5 mg 2.5 mg BID PO ; Start 10/01/16 at 09:00 Caspofungin/ Sodium Chloride (Cancidas/NS) 250 ml @ 250 mls/hr Q24H IVPB Last administered on 09/18/16t 12:05; Admin Dose 250 MLS/HR; Start 09/17/16 at 11:30 AMY PEREZ Sep 18, 2016 17:30
--- NOTE | 2016-09-20 08:48 | CONS ---
DATE OF ADMISSION: 09/14/2016 DATE OF CONSULTATION: 09/17/2016 Vascular Surgery consultation. Dear Dr. Cerna, The patient is a 70-year-old gentleman with a plethora of medical conditions known to our Vascular Surgery Service secondary to bilateral lower extremity atherosclerosis and gangrene and also end-stage renal disease, in which he was recently admitted to [facility] with ND and stroke workup. The patient had recovered from that hospitalization and was sent to short-term rehab. Unfortunately, the patient presented back to the hospital with upper GI bleed in which he is being currently evaluated by our multidisciplinary team. From the standpoint from vascular surgery, the patient's right upper extremity fistula, unfortunately had a penetrating ulcer in which patient had developed perfuse bleeding and in the vascular form and was taken to the OR emergently for control of bleeding and ligation of his fistula. Subsequently, he had a left groin perm catheter placement for his hemodialysis. In regard to his right lower extremity, patient has undergone a right femoral to anterior tibial bypass secondary to having a gangrene of his foot in order to provide the patient with limb salvage. Unfortunately, the patient has had multiple medical events that has kept him from his recovery and recent ND and stroke that prevented us from being able to do further with his toe gangrene and amputation. At the moment the patient is sleepy and tired. However, he is able to answer questions. He denies shortness of breath, chest pain, nausea, vomiting, fever, chills. REVIEW OF SYSTEMS: Fourteen point review performed and negative except as mentioned in HPI. PAST MEDICAL HISTORY: Entails bilateral lower extremity atherosclerosis and gangrene, coronary artery disease, high cholesterol, hypertension, pancreatitis, end-stage renal disease, GERD, diabetes, ND, stroke. PAST SURGICAL HISTORY: 1. Left below-knee amputation secondary to gangrene. 2. Right lower extremity femoral to anterior tibial in situ bypass. 3. Right upper extremity AV fistula. 4. Multiple chest wall catheter placements. 5. Ligation of the right upper extremity AV fistula. 6. Left internal jugular vein perm catheter placement. FAMILY HISTORY: Positive for hypertension. SOCIAL HISTORY: Denies tobacco, alcohol, or illicit drug use. He was ex-smoker. PHYSICAL EXAMINATION: Alert, oriented x3. No apparent distress. HEENT: Normocephalic, atraumatic. PERRLA. EOMI. Mucosa moist. Poor dentition. NECK: Supple. No carotid bruit. LUNGS: Clear to auscultation bilaterally. HEART: S1, S2 present. No murmurs. ABDOMEN: Soft, nontender, nondistended. Bowel sounds positive. EXTREMITIES: Right lower extremity, palpable femoral pulse. Palpable graft at the knee. There is a biphasic and anterior tibial signal. Motor sensory intact. Capillary refill 2-3 seconds. Gangrene of the second toe and eschar and ulcer of the heel that has been stable since last hospitalization. Left lower extremity, palpable femoral pulse. BK stump well healed. Cap refill 3 seconds. Left chest wall catheter intact. Right upper extremity palpable radial pulse. Motor sensory intact. Incision sites are clean and dry. ASSESSMENT AND PLAN: 1. Bilateral lower extremity atherosclerosis and a gangrene: The patient has been stable from this standpoint of his right lower extremity. At the moment we will continue with his vascular surveillance and his monitoring of his graft. The patient will require eventual second toe amputation and debridement of his heel; however, currently his wounds are stable with eschar and gangrene. Will continue to follow as he recovers and plan for that eventually with our podiatry colleagues. 2. End-stage renal disease: At the moment the patient does have a left chest wall catheter for his hemodialysis which has been functioning well. We will wait for the patient to recover from his current medical status and schedule patient for a new fistula of his left upper extremity. 3. Discussed findings plans with the patient. He understands. 4. Optimize vascular status (nutrition, exercise, sugar control, antiplatelets). Thank you for allowing us to partake in the care of your patient. Please call with any questions. Dictated By: Johny Conteh MD /angelica/terrie /Document#: [id number]
[2016-10-01] MEDS ORDERED: APIXABAN 5 MG TABLET PO SCH (09:00)
== END 2016-09-18 17:30 | DRG 377 ==
LOC: E/R 11:27 → TEL 13:19
PROVIDERS: ADMIT Internal Medicine; ATTEND Internal Medicine
PROC: 30233N1 Transfusion of Nonautologous Red Blood Cells into Peripheral Vein, Percutaneous Approach (ICD-10-PCS; 2016-09-14)
PROC: 5A1D60Z (ICD-10-PCS; 2016-09-14)
PROC: 0DB58ZX Excision of Esophagus, Via Natural or Artificial Opening Endoscopic, Diagnostic (ICD-10-PCS; principal; 2016-09-15 15:30)
DX: K92.2 Gastrointestinal hemorrhage, unspecified (principal); N18.6 End stage renal disease; I12.0 Hypertensive chronic kidney disease with stage 5 chronic kidney disease or end stage renal disease; B37.81 Candidal esophagitis; E11.52 Type 2 diabetes mellitus with diabetic peripheral angiopathy with gangrene; I69.354 Hemiplegia and hemiparesis following cerebral infarction affecting left non-dominant side; I48.92 Unspecified atrial flutter; L97.419 Non-pressure chronic ulcer of right heel and midfoot with unspecified severity; Q43.8 Other specified congenital malformations of intestine; E11.22 Type 2 diabetes mellitus with diabetic chronic kidney disease; E11.621 Type 2 diabetes mellitus with foot ulcer; L97.519 Non-pressure chronic ulcer of other part of right foot with unspecified severity; I87.2 Venous insufficiency (chronic) (peripheral); I25.10 Atherosclerotic heart disease of native coronary artery without angina pectoris; I95.1 Orthostatic hypotension; E78.00 Pure hypercholesterolemia, unspecified; D63.8 Anemia in other chronic diseases classified elsewhere; N40.0 Benign prostatic hyperplasia without lower urinary tract symptoms; K44.9 Diaphragmatic hernia without obstruction or gangrene; Z66 Do not resuscitate; Z99.2 Dependence on renal dialysis; Z95.5 Presence of coronary angioplasty implant and graft; Z89.432 Acquired absence of left foot; Z79.82 Long term (current) use of aspirin; Z79.4 Long term (current) use of insulin; Z87.891 Personal history of nicotine dependence
CPT/HCPCS: 36415; 36430; 71010; 80053; 82962; 84484; 85025; 85610; 85651; 85730; 86140; 86850; 86900; 86901; 86920; 87070; 88104; 88305; 88312; 90935; 92610; 93005; 96365; 96366; 96375; C9113; J1644; J1815; J2405; J3480; J7030; J7042; J7050; P9016; Q4081

== ENCOUNTER 2016-11-19 12:28 | Inpatient (IN) | payer MEDICARE, BC ==
[~2016-11-19] VITALS: Ht 190.5 cm; Wt 78.0 kg
[~2016-11-19 12:28] MED LIST changes: -FOSRENOL PO
[2016-11-19 16:00] VITALS: BP 138/66; RESP 16
[2016-11-19 16:06] VITALS: Ht 190.5 cm; Wt 78.0 kg
[2016-11-19] MEDS ORDERED: ONDANSETRON 4 MG INJ IV PRN (17:00)
[2016-11-19] MEDS ORDERED: BISACODYL (EC) 5 MG TAB PO PRN (17:00)
[2016-11-19] MEDS ORDERED: ACETAMINOPHEN 325 MG TAB PO PRN ×2 (17:00→19:00)
[2016-11-19] MEDS ORDERED: GLUCOSE GEL 15 GRAM TUBE PO PRN ×2 (17:30)
[2016-11-19] MEDS ORDERED: DEXTROSE 50% 50 ML SYRINGE IV PRN ×2 (17:30)
[2016-11-19] MEDS ORDERED: GLUCOSE GEL 15 GRAM TUBE BUCCAL PRN (17:30)
[2016-11-19] MEDS ORDERED: GLUCAGON 1 MG INJ IM PRN (17:30)
[2016-11-19] MEDS: INSULIN ASPART [NOVOLOG] 3 ML PEN SC SCH ×2 (18:49→23:00)
[2016-11-19] MEDS ORDERED: BISACODYL 10 MG SUPP PR PRN (19:00)
[2016-11-19] MEDS ORDERED: VANCOMYCIN IV PER PHARMACY XX SCH (19:00)
[2016-11-19 19:57] VITALS: BP 133/65; RESP 18
[2016-11-19 20:42] LABS: BASOPHILS % 0.5 % (0.0-2.0); EOSINOPHILS # 0.1 10^3/ul (0.0-0.5); EOSINOPHILS % 1.6 % (0.0-7.0); HEMATOCRIT 32.7 % (42.0-52.0); HEMOGLOBIN 10.1 g/dl (14.0-18.0); LYMPHOCYTES # 1.3 10^3/ul (0.8-2.9); MEAN CORPUSCULAR HEMOGLOBIN 30.3 pg (29.0-33.0); MEAN CORPUSCULAR HGB CONC 30.9 g/dl (32.0-37.0); MEAN CORPUSCULAR VOLUME 98.2 fl (82.0-101.0); MEAN PLATELET VOLUME 9.8 fl (7.4-10.4); MONOCYTE # 0.6 10^3/ul (0.3-0.9); MONOCYTES % 6.5 % (0.0-11.0); NEUTROPHIL # 6.5 10^3/ul (1.6-7.5); NEUTROPHILS % 75.5 % (39.0-77.0); PLATELET COUNT 221 10^3/UL (140-415); RED BLOOD COUNT 3.33 10^6/ul (4.70-6.10); RED CELL DISTRIBUTION WIDTH 15.9 % (11.5-14.5); WHITE BLOOD COUNT 8.6 10^3/ul (4.8-10.8)
[2016-11-19] MEDS ORDERED: VANCOMYCIN 1.5 GM in SOD CHLORIDE 0.9% 250 ML IVPB SCH (21:00)
[2016-11-19] MEDS ORDERED: INSULIN GLARGINE [LANtus] 3 ML PEN SC SCH (21:00)
[2016-11-19 21:09] LABS: ALBUMIN 2.8 g/dl (3.3-4.9); ALBUMIN/GLOBULIN RATIO 0.8; CALCIUM 8.6 mg/dl (8.4-10.2); CREATININE 4.2 mg/dl (0.61-1.24); MAGNESIUM 1.7 mg/dl (1.7-2.5); PHOSPHORUS 3.1 mg/dl (2.5-4.9); POTASSIUM 4.3 mmol/L (3.5-5.1); TOTAL PROTEIN 6.3 g/dl (6.1-8.1)
[2016-11-19 21:16] LABS: INR 1.31; PROTIME 16.4 Sec (12.2-14.2); PT RATIO 1.3
[2016-11-19 21:17] LABS: PARTIAL THROMBOPLASTIN TIME 35.5 Sec (25.0-35.0)
--- NOTE | 2016-11-19 21:21 | HP ---
DATE OF ADMISSION: 11/19/2016 REASON FOR ADMISSION: Right foot infection. HISTORY OF PRESENT ILLNESS: This 70-year-old man was admitted through the [facility] today when he presented for a routine visit. The patient has a long history of peripheral artery disease with previous left bwqeh-ddj-jcdy amputation and right leg vascular bypass. The patient has type 2 diabetes mellitus with sequelae of diabetic nephropathy, end- stage renal disease, on maintenance hemodialysis, peripheral neuropathy, peripheral artery disease. The patient also had a right hemispheric stroke with left hemiparesis and expressive aphasia. His stroke symptoms have improved significantly. The patient was seen by Dr. Rubalcava and Dr. Conteh today. Dr. Conteh diagnosed a right forefoot cellulitis and recommended admission. The patient had a 4th toe on the right foot that auto amputated due to gangrene. The patient is currently residing at the [facility] and is going for maintenance hemodialysis Wednesday, Wednesday, and Wednesday at the [facility] in [place]. He was last admitted to the hospital on September 14 for GI bleeding. The patient was initially admitted to the hospital in late 08/2016 because of gangrene of the right foot and was going to have an amputation of the right 4th toe. On admission, the patient was found to have an elevated troponin. He underwent a left heart catheterization and had 2 stents placed. The patient was on aspirin and Plavix after the coronary artery stents were placed. After the left heart catheterization., the patient developed atrial flutter with a variable ventricular rate. Five days after that admission, he was going to have an amputation of the right 4th toe; however, he developed a sudden onset of altered mental status with left facial weakness. Left arm and leg weakness. He had a CAT scan, which showed a right frontal lobe infarct. He was diagnosed with a CVA and was eventually started on Eliquis. PAST MEDICAL HISTORY: 1. Coronary artery disease. 2. Type 2 diabetes mellitus. 3. Hyperlipidemia. 4. Hypertension. 5. Pancreatitis. 6. End-stage renal disease, on maintenance hemodialysis. 7. Severe postural hypotension. 8. Peripheral neuropathy. 9. Peripheral artery disease. PAST SURGICAL HISTORY: Have included: 1. Left upper arm AV fistula. Then, left upper arm fistula ligation because of bleeding. 2. Left internal jugular PermCath. 3. Left brdnc-pol-hcmw amputation in 12/2015 because of a left foot ischemic ulcer. 4. Right leg vascular bypass for right foot ischemia. FAMILY HISTORY: Unremarkable. SOCIAL HISTORY: The patient does not drink alcohol. Never smoked. Does not use illicit drugs. PHYSICAL EXAMINATION: GENERAL: At this time reveals a frail man in no apparent distress. He is awake and alert and talking to his daughter. VITAL SIGNS: Temperature 98, pulse of 86, respirations 18, blood pressure 143/83, O2 sat 96 percent on room air. HEENT: Head normocephalic. Eyes, extraocular muscles intact. Nose is normal. Mouth are there is some very slight left facial weakness. NECK: Supple. No neck vein distention. LUNGS: Clear to auscultation. HEART: Regular rhythm. No murmurs, gallops, or rubs. There is a left internal jugular PermCath. ABDOMEN: Soft, nontender. No masses or megaly. EXTREMITIES: The left leg, he has a [id number] amputation with a healed stump. The right leg, there is a bandage on the right foot. He has erythema of the right forefoot, amputation of the right 4th toe. NEUROLOGIC: His speech is altered, but intelligible. He is diffusely weak but no obvious other focal neurologic deficits, except for a slight left facial weakness. IMPRESSION: 1. Cellulitis of the right forefoot. 2. Peripheral artery disease with ischemia to right foot. 3. End-stage renal disease, on maintenance hemodialysis. 4. Previous cerebral vascular accident. 5. Severe postural hypotension. 6. Type 2 diabetes mellitus. 7. Anemia of chronic disease. PLAN: 1. Start broad-spectrum antibiotics. 2. Infectious disease consultation called. 3. The patient and I had a discussion about considering amputation of right leg in view of further infections and ischemia. 4. Hemodialysis tomorrow. 5. Routine laboratory tests. Dictated By: Migue Nunez MD /angelica/antonietta /Document#: [id number]
--- NOTE | 2016-11-19 21:53 | RADRPT ---
PROCEDURE: XR Chest 1 view. CLINICAL INDICATION: Cough TECHNIQUE: AP views of the chest were obtained. COMPARISON: September 14, 2016 FINDINGS: The heart is large. Calcified atherosclerosis is noted in the aorta. Left sided dialysis catheter h as its tip in the expected location of the mid right atrium. Retrocardiac opacity is identified. Os seous structures are intact. IMPRESSION: Cardiomegaly with calcified atherosclerosis in the aorta. Retrocardiac opacity that may reflect left lower lobe atelectasis or infiltrate combined with small pleural effusion. RPTAT: AA .George Wild MD, MD Date Time Electronically viewed and signed by .George Wild MD, on 11/19/2016 21:52 .P/
[2016-11-19] MEDS: TAMSULOSIN (SR) 0.4 MG CAP PO SCH (21:58)
[2016-11-19] MEDS: ATORVASTATIN 20 MG TAB PO SCH (21:58)
[2016-11-19] MEDS: SACCHAROMYCES BOULARDII 250 MG CAP PO SCH (21:59)
[2016-11-19] MEDS: PIPER-TAZO 2.25 GM (PMX) 50 ML IVPB SCH (23:11)
[2016-11-20] VITALS (15 sets, daily range): BP systolic 126–141; BP diastolic 60–80; PULSE 71–73; RESP 18–20
[2016-11-20] MEDS: ZOLPIDEM 5 MG TAB PO PRN ×2 (00:35→22:29)
--- NOTE | 2016-11-20 00:37 | RADRPT ---
PROCEDURE: XR Foot. CLINICAL INDICATION: of age, . Pain. TECHNIQUE: Three views of the right foot. COMPARISON: None available. FINDINGS: There has been bone and soft tissue amputation of the fourth toe at the level of the base of the pro ximal phalanx. There is bony erosion involving the distal second, third, fourth and fifth metatarsals as well as th e bases of the second through fifth proximal phalanges in keeping with osteomyelitis. The changes be come progressively worse from medial to lateral. At the second ray, the erosive changes involve the head of the second metatarsal and the dorsal base of the proximal phalanx. At the third ray, the ero sive changes involve the metatarsal head and neck and dorsal base of the third proximal phalanx. At the fourth ray, the erosive changes involve the head, neck and distal shaft of the fourth metatarsal as well as the bony stump at the base of the fourth proximal phalanx. At the fifth ray there is bon y erosion involving the head, neck and distal half of the metatarsal as well as the base of the prox imal phalanx. There is overlying soft tissue swelling. Negative for abnormal soft tissue gas. There is vascular calcification in keeping with diabetes. There are multiple surgical clips at the a nkle. Normal alignment of the Lisfranc joint and joints of the midfoot. There are hammertoe deformities of the second through fifth rays with hyperextension of the MTP joints. IMPRESSION: Bony erosion involving the second through fifth metatarsals and second through fifth proximal phalan ges in keeping with osteomyelitis and probable septic arthritis of the MTP joints. Status post bone and soft tissue amputation of the fourth toe at the level of the base of the proxim al phalanx. RPTAT: HCTS Physician King Date Time Electronically viewed and signed by Physician King on 11/20/2016 00:37 /
[2016-11-20] MEDS: ACCU-CHEK XX SCH (02:00)
[2016-11-20] MEDS ORDERED: ACCU-CHEK XX SCH (02:00)
[2016-11-20] MEDS: PIPER-TAZO 2.25 GM (PMX) 50 ML IVPB SCH ×4 (06:00→21:18)
--- NOTE | 2016-11-20 08:06 | RADRPT ---
PROCEDURE: US Lower extremity arterial. CLINICAL INDICATION: Bilateral lower extremity pain. Ulcers. Left yqsen-mkr-ytfn amputation. TECHNIQUE: Multiple sonographic images of the bilateral lower extremity arteries were obtained uti lizing dill scale, color-flow and doppler imaging. COMPARISON: 08/25/2016 FINDINGS: Diffuse atherosclerotic plaque. Velocities and waveforms were obtained as described below. RIGHT LEG: Right common femoral artery: 69 cm/s; monophasic waveforms Right proximal superficial femoral artery: 59 cm/s; monophasic waveforms Right mid superficial femoral artery: 47 cm/s; monophasic waveforms Right distal superficial femoral artery: 165 cm/s; monophasic waveforms Right popliteal artery: 34 cm/s; monophasic waveforms Right posterior tibial artery: No flow Right dorsalis pedis artery: 54 cm/s; monophasic waveforms Right common femoral to dorsalis pedis artery bypass graft is patent with monophasic waveforms and v elocities of 62 cm/sec superiorly and 131 cm/sec distally near the anastomosis. LEFT LEG: Left common femoral artery: 56 cm/s; monophasic waveforms Left proximal superficial femoral artery: 56 cm/s; monophasic waveforms Left mid superficial femoral artery: 56 cm/s; monophasic waveforms Left distal superficial femoral artery: 38 cm/s; monophasic waveforms IMPRESSION: 1. Right common femoral artery to the dorsalis pedis artery bypass is patent with evidence of the se dena stenosis near the distal anastomosis. 2. Severe stenosis in the right distal superficial femoral artery. 3. Occluded right posterior tibial artery. 4. Diffuse monophasic waveforms in both legs consistent with multifocal disease. No significant sten osis in the left leg. RPTAT:AAJJ Physician Oumar Date Time Electronically viewed and signed by Physician Oumar on 11/20/2016 08:06 /
[2016-11-20] MEDS: INSULIN ASPART [NOVOLOG] 3 ML PEN SC SCH ×4 (08:15→21:00)
[2016-11-20] MEDS: CALCITRIOL 0.25 MCG CAP PO SCH (08:55)
[2016-11-20] MEDS: MULTIVIT/CA CARB/B CMPLX/FA TAB PO SCH (08:55)
[2016-11-20] MEDS: CREON (24K-76K-120K) 1 CAP PO SCH ×3 (08:55→17:36)
[2016-11-20] MEDS: SACCHAROMYCES BOULARDII 250 MG CAP PO SCH ×2 (08:55→21:16)
[2016-11-20] MEDS: LORATADINE 10 MG TAB PO SCH (08:56)
[2016-11-20] MEDS: MULTIVITAMINS THERAPEUTIC TAB PO SCH (08:56)
[2016-11-20] MEDS: ASCORBIC ACID 500 MG TAB PO SCH (08:56)
[2016-11-20] MEDS: CALCIUM ACETATE 667 MG CAP PO SCH ×3 (08:59→17:36)
[2016-11-20] MEDS ORDERED: ASPIRIN 81 MG TAB PO SCH (09:00)
--- NOTE | 2016-11-20 09:59 | PN ---
Date/Time of Note Date/Time of Note DATE: 11/20/16 TIME: 09:49 Assessment/Plan VTE Prophylaxis VTE Prophylaxis Intervention: other VTE Contraindication Reason: bleeding Lines/Catheters IV Catheter Type (from Nrs): [place] Assessment/Plan Chief Complaint/Hosp Course 1. R foot cellulitis , ischemia . He is being treated with antibiotics and foot debridement by [facility] . 2.ESRD , he is dialyzed . He was dialyzed this morning . Next dialysis is for Wednesday . 3. he is being seen by ID , vascular and podiatry 4. I would consider R leg amputation , discussed with patient and four slide machine setter . Problems: Subjective 24 Hr Interval Summary Free Text/Dictation He is sleeping . He has no complaints . He was dialyzed earlier today . Constitutional: no complaints Cardiovascular: no complaints Gastrointestinal: no complaints Genitourinary: no complaints Musculoskeletal: no complaints Exam/Review of Systems Vital Signs Vitals Vital Signs Date Time Temp Pulse Resp B/P Pulse Ox O2 Delivery O2 Flow Rate FiO2 11/20/16 08:16 71 18 11/20/16 07:29 97.9 141/67 92 Intake and Output 11/19/16 11/19/16 11/20/16 15:00 23:00 07:00 Intake Total 240 ml 500 ml Output Total 100 ml Balance 240 ml 400 ml Exam R foot with cellulitis and amputated 4th toe . L leg , S/P BKA Constitutional: alert, frail, oriented ENMT: nl external ears & nose, nl lips & teeth, nl nasal mucosa & septum Respiratory: clear to auscultation, normal air movement Cardiovascular: regular rate and rhythm Gastrointestinal: non-tender, soft Results Result Diagram: 11/19/16202911/19/162029 Results 24 hrs Laboratory Tests Test 11/19/16 17:01 11/19/16 20:30 11/19/16 23:14 11/20/16 08:38 Bedside Glucose 145 179 127 White Blood Count 8.6 # Red Blood Count 3.33 L Hemoglobin 10.1 L Hematocrit 32.7 L Mean Corpuscular Volume 98.2 Mean Corpuscular Hemoglobin 30.3 Mean Corpuscular Hemoglobin Concent 30.9 L Red Cell Distribution Width 15.9 H Platelet Count 221 # Mean Platelet Volume 9.8 Neutrophils % 75.5 Lymphocytes % 15.0 Monocytes % 6.5 Eosinophils % 1.6 Basophils % 0.5 Nucleated Red Blood Cells % 0.0 Neutrophils # 6.5 Lymphocytes # 1.3 Monocytes # 0.6 Eosinophils # 0.1 Basophils # 0.0 Nucleated Red Blood Cells # 0.0 Erythrocyte Sedimentation Rate 60 H Prothrombin Time 16.4 H Prothrombin Time Ratio 1.3 INR International Normalized Ratio 1.31 Activated Partial Thromboplast Time 35.5 H Sodium Level 137 Potassium Level 4.3 Chloride Level 97 Carbon Dioxide Level 33 H Anion Gap 11 Blood Urea Nitrogen 35 H Creatinine 4.20 H Glucose Level 175 Hemoglobin A1c 5.6 Calcium Level 8.6 Phosphorus Level 3.1 Magnesium Level 1.7 Total Bilirubin 0.0 L Direct Bilirubin 0.00 Indirect Bilirubin 0.0 Aspartate Amino Transf (AST/SGOT) 41 Alanine Aminotransferase (ALT/SGPT) 23 Alkaline Phosphatase 127 H C-Reactive Protein 5.6 H Total Protein 6.3 Albumin 2.8 L Globulin 3.50 H Albumin/Globulin Ratio 0.80 Medications Medications Current Medications Ondansetron HCl (Zofran Inj) 4 mg Q6H PRN IV NAUSEA AND/OR VOMITING; Start at 17:00 Acetaminophen (Tylenol Tab) 650 mg Q6H PRN PO PAIN LEVEL 1-3 OR FEVER; Start at 17:00 Acetaminophen/ Hydrocodone Bitart ([place] (5/325)) 1 tab Q6H PRN PO MODERATE PAIN LEVEL 4-6; Start 11/19/16 at 17:00 Bisacodyl (Dulcolax) 5 mg DAILY PRN PO CONSTIPATION; Start 11/19/16 at 17:00 Zolpidem Tartrate (Ambien) 5 mg QHS PRN PO SLEEP Last administered on t 00:35; Admin Dose 5 MG; Start 11/19/16 at 17:00 Diagnostic Test (Pha) (Accu-Chek) 1 ea 02 XX ; Start 11/20/16 at 02:00 Miscellaneous Information 1 ea NOTE XX ; Start 11/19/16 at 17:30 Glucose (Glutose) 15 gm Q15M PRN PO DECREASED GLUCOSE; Start 11/19/16 at 17:30 Glucose (Glutose) 22.5 gm Q15M PRN PO DECREASED GLUCOSE; Start 11/19/16 at 17: 30 Dextrose (D50w Syringe) 25 ml Q15M PRN IV DECREASED GLUCOSE; Start 11/19/16 at 17:30 Dextrose (D50w Syringe) 50 ml Q15M PRN IV DECREASED GLUCOSE; Start 11/19/16 at 17:30 Glucagon (Glucagen) 1 mg Q15M PRN IM DECREASED GLUCOSE; Start 11/19/16 at 17:30 Glucose (Glutose) 15 gm Q15M PRN BUCCAL DECREASED GLUCOSE; Start 11/19/16 at 17 :30 Acetaminophen (Tylenol Tab) 650 mg Q4 PRN PO PAIN AND OR ELEVATED TEMP; Start 11/19/16 at 19:00 Ascorbic Acid (Vitamin C) 500 mg DAILY PO Last administered on 11/20/16 08:56 ; Admin Dose 500 MG; Start 11/20/16 at 09:00 Aspirin (Aspirin) 81 mg DAILY PO Last administered on 11/20/16 08:56; Admin Dose 81 MG; Start 11/20/16 at 09:00 Atorvastatin Calcium (Lipitor) 20 mg QHS PO Last administered on 11/19/16 21: 58; Admin Dose 20 MG; Start 11/19/16 at 21:00 Bisacodyl (Dulcolax Supp) 10 mg DAILY PRN IN BM; Start 11/19/16 at 19:00 Calcitriol (Rocaltrol) 0.25 mcg DAILY PO Last administered on 11/20/16 08:55; Admin Dose 0.25 MCG; Start 11/20/16 at 09:00 Insulin Glargine (Lantus) 20 unit QHS SC Last administered on 11/19/16 23:18; Admin Dose 20 UNIT; Start 11/19/16 at 21:00 Loratadine (Claritin) 10 mg DAILY PO Last administered on 11/20/16 08:56; Admin Dose 10 MG; Start 11/20/16 at 09:00 Multivit/Ca Carb/ B Cmplx/FA/Prenat (Sarika-Nahomi) 1 tab DAILY PO Last administered on 11/20/16 08:55; Admin Dose 1 TAB; Start 11/20/16 at 09:00 Multivitamins Therapeutic (Theragran) 1 tab DAILY PO Last administered on 08:56; Admin Dose 1 TAB; Start 11/20/16 at 09:00 Saccharomyces Boulardii (Florastor) 500 mg BID PO Last administered on 08:55; Admin Dose 500 MG; Start 11/19/16 at 21:00 Tamsulosin HCl 0.4 mg 0.4 mg HS PO Last administered on 11/19/16 21:58; Admin Dose 0.4 MG; Start 11/19/16 at 21:00 Piperacillin Sod/ Tazobactam Sod (Zosyn 2.25gm/ 50ml (Pmx)) 50 ml @ 100 mls/hr Q8 IVPB Last administered on 11/20/16 08:53; Admin Dose 100 MLS/HR; Start at 22:00 CELESTE BHATT MD Nov 20, 2016 09:58
--- NOTE | 2016-11-20 10:26 | CONS ---
Date/Time of Note Date/Time of Note DATE: 11/20/16 TIME: 10:19 Assessment/Plan Assessment/Plan Chief Complaint/Hosp Course 1) R foot infection with cellulitis and probable osteeo ESR is elevated but normal WBC recent hx of MRSA on R foot repeat wound cx have been taken podiatry did some debridement today await cx results continue with vanco/zosyn at present pt will likely need R BKA 2) DM 3) ESRD on HD 4) recent R sided CVA 5) CAD Problems: Consultation Date/Type/Reason Admit Date/Time Nov 19, 2016 at 15:48 Date of Consultation: Nov 20, 2016 Type of Consultation: ID Hx of Present Illness pt admitted due to cellulitis of R foot pt had known eschar/ulcers to R foot and these have not healed despite R leg bypass surgery pt had recent R CVA in august 2016 and has mostly recovered from this He has known MRSA from R heal in september 2016 he denies F, C, NS no N, V, D No SOB, cough, GIBBONS Constitutional: no complaints Cardiovascular: no complaints Gastrointestinal: no complaints Genitourinary: no complaints Musculoskeletal: no complaints Past Medical History ESRD, DM Past Surgical History L BKA R bypass surgery Past Surgical Hx: no surgical history, angioplasty, endoscopy, other Social History Smoking Status: Never smoker Exam/Review of Systems Vital Signs Vitals Vital Signs Date Time Temp Pulse Resp B/P Pulse Ox O2 Delivery O2 Flow Rate FiO2 11/20/16 08:16 71 18 11/20/16 07:29 97.9 141/67 92 Intake and Output 11/19/16 11/19/16 11/20/16 15:00 23:00 07:00 Intake Total 240 ml 500 ml Output Total 100 ml Balance 240 ml 400 ml Exam Constitutional: alert, oriented Head: normocephalic ENMT: mucosa pink and moist Respiratory: clear to auscultation Cardiovascular: regular rate and rhythm Gastrointestinal: non-tender, soft Extremities: other (R foot is bandaged, photos on chart were revieweed, L BKA has healed) Results Result Diagram: 11/19/16202911/19/162029 Results 24 hrs Laboratory Tests Test 11/19/16 17:01 11/19/16 20:30 11/19/16 23:14 11/20/16 08:38 Bedside Glucose 145 179 127 White Blood Count 8.6 # Red Blood Count 3.33 L Hemoglobin 10.1 L Hematocrit 32.7 L Mean Corpuscular Volume 98.2 Mean Corpuscular Hemoglobin 30.3 Mean Corpuscular Hemoglobin Concent 30.9 L Red Cell Distribution Width 15.9 H Platelet Count 221 # Mean Platelet Volume 9.8 Neutrophils % 75.5 Lymphocytes % 15.0 Monocytes % 6.5 Eosinophils % 1.6 Basophils % 0.5 Nucleated Red Blood Cells % 0.0 Neutrophils # 6.5 Lymphocytes # 1.3 Monocytes # 0.6 Eosinophils # 0.1 Basophils # 0.0 Nucleated Red Blood Cells # 0.0 Erythrocyte Sedimentation Rate 60 H Prothrombin Time 16.4 H Prothrombin Time Ratio 1.3 INR International Normalized Ratio 1.31 Activated Partial Thromboplast Time 35.5 H Sodium Level 137 Potassium Level 4.3 Chloride Level 97 Carbon Dioxide Level 33 H Anion Gap 11 Blood Urea Nitrogen 35 H Creatinine 4.20 H Glucose Level 175 Hemoglobin A1c 5.6 Calcium Level 8.6 Phosphorus Level 3.1 Magnesium Level 1.7 Total Bilirubin 0.0 L Direct Bilirubin 0.00 Indirect Bilirubin 0.0 Aspartate Amino Transf (AST/SGOT) 41 Alanine Aminotransferase (ALT/SGPT) 23 Alkaline Phosphatase 127 H C-Reactive Protein 5.6 H Total Protein 6.3 Albumin 2.8 L Globulin 3.50 H Albumin/Globulin Ratio 0.80 Medications Medications Current Medications Ondansetron HCl (Zofran Inj) 4 mg Q6H PRN IV NAUSEA AND/OR VOMITING; Start at 17:00 Acetaminophen (Tylenol Tab) 650 mg Q6H PRN PO PAIN LEVEL 1-3 OR FEVER; Start at 17:00 Acetaminophen/ Hydrocodone Bitart ([place] (5/325)) 1 tab Q6H PRN PO MODERATE PAIN LEVEL 4-6; Start 11/19/16 at 17:00 Bisacodyl (Dulcolax) 5 mg DAILY PRN PO CONSTIPATION; Start 11/19/16 at 17:00 Zolpidem Tartrate (Ambien) 5 mg QHS PRN PO SLEEP Last administered on t 00:35; Admin Dose 5 MG; Start 11/19/16 at 17:00 Diagnostic Test (Pha) (Accu-Chek) 1 ea 02 XX ; Start 11/20/16 at 02:00 Miscellaneous Information 1 ea NOTE XX ; Start 11/19/16 at 17:30 Glucose (Glutose) 15 gm Q15M PRN PO DECREASED GLUCOSE; Start 11/19/16 at 17:30 Glucose (Glutose) 22.5 gm Q15M PRN PO DECREASED GLUCOSE; Start 11/19/16 at 17: 30 Dextrose (D50w Syringe) 25 ml Q15M PRN IV DECREASED GLUCOSE; Start 11/19/16 at 17:30 Dextrose (D50w Syringe) 50 ml Q15M PRN IV DECREASED GLUCOSE; Start 11/19/16 at 17:30 Glucagon (Glucagen) 1 mg Q15M PRN IM DECREASED GLUCOSE; Start 11/19/16 at 17:30 Glucose (Glutose) 15 gm Q15M PRN BUCCAL DECREASED GLUCOSE; Start 11/19/16 at 17 :30 Acetaminophen (Tylenol Tab) 650 mg Q4 PRN PO PAIN AND OR ELEVATED TEMP; Start 11/19/16 at 19:00 Ascorbic Acid (Vitamin C) 500 mg DAILY PO Last administered on 11/20/16 08:56 ; Admin Dose 500 MG; Start 11/20/16 at 09:00 Aspirin (Aspirin) 81 mg DAILY PO Last administered on 11/20/16 08:56; Admin Dose 81 MG; Start 11/20/16 at 09:00 Atorvastatin Calcium (Lipitor) 20 mg QHS PO Last administered on 11/19/16 21: 58; Admin Dose 20 MG; Start 11/19/16 at 21:00 Bisacodyl (Dulcolax Supp) 10 mg DAILY PRN MA BM; Start 11/19/16 at 19:00 Calcitriol (Rocaltrol) 0.25 mcg DAILY PO Last administered on 11/20/16 08:55; Admin Dose 0.25 MCG; Start 11/20/16 at 09:00 Insulin Glargine (Lantus) 20 unit QHS SC Last administered on 11/19/16 23:18; Admin Dose 20 UNIT; Start 11/19/16 at 21:00 Loratadine (Claritin) 10 mg DAILY PO Last administered on 11/20/16 08:56; Admin Dose 10 MG; Start 11/20/16 at 09:00 Multivit/Ca Carb/ B Cmplx/FA/Prenat (Sarika-Nahomi) 1 tab DAILY PO Last administered on 11/20/16 08:55; Admin Dose 1 TAB; Start 11/20/16 at 09:00 Multivitamins Therapeutic (Theragran) 1 tab DAILY PO Last administered on 08:56; Admin Dose 1 TAB; Start 11/20/16 at 09:00 Saccharomyces Boulardii (Florastor) 500 mg BID PO Last administered on 08:55; Admin Dose 500 MG; Start 11/19/16 at 21:00 Tamsulosin HCl 0.4 mg 0.4 mg HS PO Last administered on 11/19/16 21:58; Admin Dose 0.4 MG; Start 11/19/16 at 21:00 Piperacillin Sod/ Tazobactam Sod (Zosyn 2.25gm/ 50ml (Pmx)) 50 ml @ 100 mls/hr Q8 IVPB Last administered on 11/20/16 08:53; Admin Dose 100 MLS/HR; Start at 22:00 Epoetin Nito (Epogen (Esrd)) 10,000 units MoWeFr@17 SC ; Start 11/20/16 at 17:00 PEDRO PATRIKC MD Nov 20, 2016 10:26
--- NOTE | 2016-11-20 12:38 | CONS ---
Date/Time of Note Date/Time of Note DATE: 11/20/16 TIME: 12:22 Assessment/Plan Assessment/Plan Additional Assessment/Plan 70 yo male with multiple medial problems including, DM, CAD, CVA, Left BKA now with right foot cellulitis and drainage. Patient advised about condition. I&D and debridement with right foot bedside recommended. Patient agrees and signed informed consent. Extensive debridement of right foot plantar lateral aspect performed with necrotic tissue and drainage noted. Exposed right foot 4th met post debridement, decrease in necrotic tissue and drainage. Area was flushed with normal saline mixed with betadine. Wounds packed with gauze soaked with bedine. Heel ulcer dressing with betadine as well. I spoke with patient in detail about condition. Case was also with Dr. Rivera. Patient and Dr. Rivera would like to pursue more definitive procedure for chronic right foot complications secondary to PAD. Its unlikley that patient would heal any foot amputations at this time. He is not ambulation of right foot or leg at this time. At this time no urgent surgical intervention recommended. Patient to discuss with Vascular surgeon Dr. Yady conner options. Patient to have daily dressing changes, continue with IV antibiotics. Will continue to follow. Consultation Date/Type/Reason Admit Date/Time Nov 19, 2016 at 15:48 Type of Consultation: Podiatry Reason for Consultation Right foot cellulitis and drainage. Hx of Present Illness Patient admitted for right foot cellulitis from [facility] yesterday. He is now residing in snf and was taking PO Doxy. Right foot erythema and drainage noted during visit yesterday and admission for further treatment recommended. Patient is on Vanco and Zosyn. Denies any fevers, chills, nausea or vomiting. 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 Constitutional: no complaints Eyes: no complaints ENT: no complaints Respiratory: no complaints Cardiovascular: no complaints Gastrointestinal: no complaints Genitourinary: no complaints Musculoskeletal: no complaints Skin: no complaints Neurologic: no complaints Endocrine: no complaints Lymphatic: no complaints Psychological: nl mood/affect, no complaints Immunologic: no complaints Past Surgical History Past Surgical Hx: no surgical history, angioplasty, endoscopy, other Social History Smoking Status: Never smoker Exam/Review of Systems Vital Signs Vitals Vital Signs Date Time Temp Pulse Resp B/P Pulse Ox O2 Delivery O2 Flow Rate FiO2 11/20/16 08:16 71 18 11/20/16 07:29 97.9 141/67 92 Intake and Output 11/19/16 11/19/16 11/20/16 15:00 23:00 07:00 Intake Total 240 ml 500 ml Output Total 100 ml Balance 240 ml 400 ml Exam Right foot with further necrosis of tissue lateral aspect. Drainage noted. Erythema dorsal midfoot area. Right 4th digit auto-amputed. Duskiness of right foot 5th, 3rd and 2nd digit noted. No proximal streaking noted. right heel medial aspect ulceration with deep probe to bone. No drainage from heel ulcer noted. S/P left BKA. ] Results Result Diagram: 11/19/16202911/19/162029 Results 24 hrs Laboratory Tests Test 11/19/16 17:01 11/19/16 20:30 11/19/16 23:14 11/20/16 08:38 Bedside Glucose 145 179 127 White Blood Count 8.6 # Red Blood Count 3.33 L Hemoglobin 10.1 L Hematocrit 32.7 L Mean Corpuscular Volume 98.2 Mean Corpuscular Hemoglobin 30.3 Mean Corpuscular Hemoglobin Concent 30.9 L Red Cell Distribution Width 15.9 H Platelet Count 221 # Mean Platelet Volume 9.8 Neutrophils % 75.5 Lymphocytes % 15.0 Monocytes % 6.5 Eosinophils % 1.6 Basophils % 0.5 Nucleated Red Blood Cells % 0.0 Neutrophils # 6.5 Lymphocytes # 1.3 Monocytes # 0.6 Eosinophils # 0.1 Basophils # 0.0 Nucleated Red Blood Cells # 0.0 Erythrocyte Sedimentation Rate 60 H Prothrombin Time 16.4 H Prothrombin Time Ratio 1.3 INR International Normalized Ratio 1.31 Activated Partial Thromboplast Time 35.5 H Sodium Level 137 Potassium Level 4.3 Chloride Level 97 Carbon Dioxide Level 33 H Anion Gap 11 Blood Urea Nitrogen 35 H Creatinine 4.20 H Glucose Level 175 Hemoglobin A1c 5.6 Calcium Level 8.6 Phosphorus Level 3.1 Magnesium Level 1.7 Total Bilirubin 0.0 L Direct Bilirubin 0.00 Indirect Bilirubin 0.0 Aspartate Amino Transf (AST/SGOT) 41 Alanine Aminotransferase (ALT/SGPT) 23 Alkaline Phosphatase 127 H C-Reactive Protein 5.6 H Total Protein 6.3 Albumin 2.8 L Globulin 3.50 H Albumin/Globulin Ratio 0.80 Test 11/20/16 12:04 Bedside Glucose 149 Medications Medications Current Medications Ondansetron HCl (Zofran Inj) 4 mg Q6H PRN IV NAUSEA AND/OR VOMITING; Start at 17:00 Acetaminophen (Tylenol Tab) 650 mg Q6H PRN PO PAIN LEVEL 1-3 OR FEVER; Start at 17:00 Acetaminophen/ Hydrocodone Bitart ([place] (5/325)) 1 tab Q6H PRN PO MODERATE PAIN LEVEL 4-6; Start 11/19/16 at 17:00 Bisacodyl (Dulcolax) 5 mg DAILY PRN PO CONSTIPATION; Start 11/19/16 at 17:00 Zolpidem Tartrate (Ambien) 5 mg QHS PRN PO SLEEP Last administered on 00:35; Admin Dose 5 MG; Start 11/19/16 at 17:00 Diagnostic Test (Pha) (Accu-Chek) 1 ea 02 XX ; Start 11/20/16 at 02:00 Miscellaneous Information 1 ea NOTE XX ; Start 11/19/16 at 17:30 Glucose (Glutose) 15 gm Q15M PRN PO DECREASED GLUCOSE; Start 11/19/16 at 17:30 Glucose (Glutose) 22.5 gm Q15M PRN PO DECREASED GLUCOSE; Start 11/19/16 at 17: 30 Dextrose (D50w Syringe) 25 ml Q15M PRN IV DECREASED GLUCOSE; Start 11/19/16 at 17:30 Dextrose (D50w Syringe) 50 ml Q15M PRN IV DECREASED GLUCOSE; Start 11/19/16 at 17:30 Glucagon (Glucagen) 1 mg Q15M PRN IM DECREASED GLUCOSE; Start 11/19/16 at 17:30 Glucose (Glutose) 15 gm Q15M PRN BUCCAL DECREASED GLUCOSE; Start 11/19/16 at 17 :30 Acetaminophen (Tylenol Tab) 650 mg Q4 PRN PO PAIN AND OR ELEVATED TEMP; Start 11/19/16 at 19:00 Ascorbic Acid (Vitamin C) 500 mg DAILY PO Last administered on 11/20/16 08:56 ; Admin Dose 500 MG; Start 11/20/16 at 09:00 Aspirin (Aspirin) 81 mg DAILY PO Last administered on 11/20/16 08:56; Admin Dose 81 MG; Start 11/20/16 at 09:00 Atorvastatin Calcium (Lipitor) 20 mg QHS PO Last administered on 11/19/16 21: 58; Admin Dose 20 MG; Start 11/19/16 at 21:00 Bisacodyl (Dulcolax Supp) 10 mg DAILY PRN [place] BM; Start 11/19/16 at 19:00 Calcitriol (Rocaltrol) 0.25 mcg DAILY PO Last administered on 11/20/16 08:55; Admin Dose 0.25 MCG; Start 11/20/16 at 09:00 Insulin Glargine (Lantus) 20 unit QHS SC Last administered on 11/19/16 23:18; Admin Dose 20 UNIT; Start 11/19/16 at 21:00 Loratadine (Claritin) 10 mg DAILY PO Last administered on 11/20/16 08:56; Admin Dose 10 MG; Start 11/20/16 at 09:00 Multivit/Ca Carb/ B Cmplx/FA/Prenat (Sarika-Nahomi) 1 tab DAILY PO Last administered on 11/20/16 08:55; Admin Dose 1 TAB; Start 11/20/16 at 09:00 Multivitamins Therapeutic (Theragran) 1 tab DAILY PO Last administered on 08:56; Admin Dose 1 TAB; Start 11/20/16 at 09:00 Saccharomyces Boulardii (Florastor) 500 mg BID PO Last administered on 08:55; Admin Dose 500 MG; Start 11/19/16 at 21:00 Tamsulosin HCl 0.4 mg 0.4 mg HS PO Last administered on 11/19/16 21:58; Admin Dose 0.4 MG; Start 11/19/16 at 21:00 Piperacillin Sod/ Tazobactam Sod (Zosyn 2.25gm/ 50ml (Pmx)) 50 ml @ 100 mls/hr Q8 IVPB Last administered on 11/20/16 08:53; Admin Dose 100 MLS/HR; Start at 22:00 Epoetin Nito (Epogen (Esrd)) 10,000 units MoWeFr@17 SC ; Start 11/20/16 at 17:00 Miscellaneous Information (*Rx Drug Level Order Reminder*) RANDOM VANCO LEVEL... ONCE ONCE XX ; Start 11/21/16 at 05:00; Stop 11/21/16 at 05:01 CORIE ROSA DPM Nov 20, 2016 12:38
[2016-11-20] MEDS ORDERED: NITROGLYCERIN (SL) 0.4 MG TAB SL PRN (14:30)
[2016-11-20] MEDS: EPOETIN 10000 UNITS/1 ML INJ (ESRD) SC SCH (17:08)
--- NOTE | 2016-11-20 20:17 | RADRPT ---
Vent Rate: 71 bpm RR Interval: 0 msec [place] Interval: 172 msec QRS Duration: 130 msec QT Interval: 432 msec QTC Interval: 469 msec P-R-T [place]: 53 - 40 - 0 degrees Normal sinus rhythm Possible Left atrial enlargement Nonspecific intraventricular block Nonspecific T wave abnormality Abnormal ECG Electronically Signed By: Surinder Gonzalez [id number]
[2016-11-20] MEDS: DOCUSATE SODIUM 100 MG CAP PO SCH (21:16)
[2016-11-20] MEDS: TAMSULOSIN (SR) 0.4 MG CAP PO SCH (21:16)
[2016-11-20] MEDS: ATORVASTATIN 20 MG TAB PO SCH (21:16)
[2016-11-20] MEDS: APIXABAN 5 MG TABLET PO SCH (21:16)
[2016-11-20] MEDS: INSULIN GLARGINE [LANtus] 3 ML PEN SC SCH (21:22)
[2016-11-21] MEDS ORDERED: ACCU-CHEK XX SCH ×6 (02:00)
[2016-11-21] MEDS: ACCU-CHEK XX SCH (02:00)
[2016-11-21 02:13] VITALS: BP 142/67; RESP 20
[2016-11-21] MEDS: PIPER-TAZO 2.25 GM (PMX) 50 ML IVPB SCH ×3 (05:31→21:25)
[2016-11-21 07:41] VITALS: BP 123/63; RESP 18
[2016-11-21] MEDS: INSULIN ASPART [NOVOLOG] 3 ML PEN SC SCH ×4 (08:00→20:41)
--- NOTE | 2016-11-21 08:24 | CONS ---
Date/Time of Note Date/Time of Note DATE: 11/21/16 TIME: 08:20 Assessment/Plan Assessment/Plan Problems: (1) Cellulitis and abscess of foot Comment: on zosyn/vanco... s/p local debridement...prob need BKA v AKA (2) ESRD (end stage renal disease) on dialysis Comment: dmitry yest... next to be Mon (3) Peripheral vascular disease Comment: s/p prior L BKA... now w Rt limb at risk.. await vasc eval and then definitive plan (4) Diabetes Comment: sugars remain excellent Consultation Date/Type/Reason Admit Date/Time Nov 19, 2016 at 15:48 Initial Consult Date 11/20/16 Type of Consultation: renal 24 HR Interval Summary Free Text/Dictation sleepy... depressed... no acute complaints Exam/Review of Systems Vital Signs Vitals Vital Signs Date Time Temp Pulse Resp B/P Pulse Ox O2 Delivery O2 Flow Rate FiO2 11/21/16 07:41 97.8 70 18 123/63 99 Intake and Output 11/20/16 11/20/16 11/21/16 15:00 23:00 07:00 Intake Total 250 ml 900 ml 50 ml Output Total 2700 ml Balance -2450 ml 900 ml 50 ml Exam Constitutional: alert, oriented Head: normocephalic Neck: supple Cardiovascular: regular rate and rhythm Extremities: other (Rt foot wrapped) Results Result Diagram: 11/19/16202911/19/162029 Results 24 hrs Laboratory Tests Test 11/20/16 08:38 11/20/16 12:04 11/20/16 17:29 11/20/16 21:14 Bedside Glucose 127 149 134 160 Test 11/21/16 05:23 11/21/16 07:56 Random Vancomycin Level 15.7 Bedside Glucose 120 Medications Medications Current Medications Ondansetron HCl (Zofran Inj) 4 mg Q6H PRN IV NAUSEA AND/OR VOMITING; Start at 17:00 Acetaminophen/ Hydrocodone Bitart ([place] (5/325)) 1 tab Q6H PRN PO MODERATE PAIN LEVEL 4-6; Start 11/19/16 at 17:00 Bisacodyl (Dulcolax) 5 mg DAILY PRN PO CONSTIPATION; Start 11/19/16 at 17:00 Zolpidem Tartrate (Ambien) 5 mg QHS PRN PO SLEEP Last administered on 22:29; Admin Dose 5 MG; Start 11/19/16 at 17:00 Diagnostic Test (Pha) (Accu-Chek) 1 ea 02 XX ; Start 11/20/16 at 02:00 Miscellaneous Information 1 ea NOTE XX ; Start 11/19/16 at 17:30 Glucose (Glutose) 15 gm Q15M PRN PO DECREASED GLUCOSE; Start 11/19/16 at 17:30 Glucose (Glutose) 22.5 gm Q15M PRN PO DECREASED GLUCOSE; Start 11/19/16 at 17: 30 Dextrose (D50w Syringe) 25 ml Q15M PRN IV DECREASED GLUCOSE; Start 11/19/16 at 17:30 Dextrose (D50w Syringe) 50 ml Q15M PRN IV DECREASED GLUCOSE; Start 11/19/16 at 17:30 Glucagon (Glucagen) 1 mg Q15M PRN IM DECREASED GLUCOSE; Start 11/19/16 at 17:30 Glucose (Glutose) 15 gm Q15M PRN BUCCAL DECREASED GLUCOSE; Start 11/19/16 at 17 :30 Acetaminophen (Tylenol Tab) 650 mg Q4 PRN PO PAIN AND OR ELEVATED TEMP; Start 11/19/16 at 19:00 Ascorbic Acid (Vitamin C) 500 mg DAILY PO Last administered on 11/20/16 08:56 ; Admin Dose 500 MG; Start 11/20/16 at 09:00 Atorvastatin Calcium (Lipitor) 20 mg QHS PO Last administered on 11/20/16 21: 16; Admin Dose 20 MG; Start 11/19/16 at 21:00 Bisacodyl (Dulcolax Supp) 10 mg DAILY PRN [place] BM; Start 11/19/16 at 19:00 Calcitriol (Rocaltrol) 0.25 mcg DAILY PO Last administered on 11/20/16 08:55; Admin Dose 0.25 MCG; Start 11/20/16 at 09:00 Loratadine (Claritin) 10 mg DAILY PO Last administered on 11/20/16 08:56; Admin Dose 10 MG; Start 11/20/16 at 09:00 Multivit/Ca Carb/ B Cmplx/FA/Prenat (Sarika-Nahomi) 1 tab DAILY PO Last administered on 11/20/16 08:55; Admin Dose 1 TAB; Start 11/20/16 at 09:00 Multivitamins Therapeutic (Theragran) 1 tab DAILY PO Last administered on 08:56; Admin Dose 1 TAB; Start 11/20/16 at 09:00 Saccharomyces Boulardii (Florastor) 500 mg BID PO Last administered on 21:16; Admin Dose 500 MG; Start 11/19/16 at 21:00 Tamsulosin HCl 0.4 mg 0.4 mg HS PO Last administered on 11/20/16 21:16; Admin Dose 0.4 MG; Start 11/19/16 at 21:00 Piperacillin Sod/ Tazobactam Sod (Zosyn 2.25gm/ 50ml (Pmx)) 50 ml @ 100 mls/hr Q8 IVPB Last administered on 11/21/16 05:31; Admin Dose 100 MLS/HR; Start at 22:00 Epoetin Nito (Epogen (Esrd)) 10,000 units MoWeFr@17 SC Last administered on 17:08; Admin Dose 10,000 UNITS; Start 11/20/16 at 17:00 Insulin Glargine (Lantus) 10 unit QHS [place] Last administered on 11/20/16 21:22; Admin Dose 10 UNIT; Start 11/20/16 at 21:00 Apixaban (Eliquis) 2.5 mg BID PO Last administered on 11/20/16 21:16; Admin Dose 2.5 MG; Start 11/20/16 at 21:00 Nitroglycerin (Nitroglycerin (Sl Tab) 0.4 Mg) 1 tab Q5M PRN SL ANGINA; Start at 14:30 Clopidogrel Bisulfate (plaVIX) 75 mg DAILY PO ; Start 11/21/16 at 09:00 Cholecalciferol (Vitamin D) 1,000 unit DAILY PO ; Start 11/21/16 at 09:00 Docusate Sodium (Colace) 100 mg BID PO Last administered on 11/20/16 21:16; Admin Dose 100 MG; Start 11/20/16 at 21:00 ARCHIE YOON MD Nov 21, 2016 08:24
[2016-11-21] MEDS: CALCIUM ACETATE 667 MG CAP PO SCH ×3 (08:33→17:30)
[2016-11-21] MEDS: DOCUSATE SODIUM 100 MG CAP PO SCH ×2 (08:33→20:34)
[2016-11-21] MEDS: MULTIVITAMINS THERAPEUTIC TAB PO SCH (08:33)
[2016-11-21] MEDS: CALCITRIOL 0.25 MCG CAP PO SCH (08:33)
[2016-11-21] MEDS: LORATADINE 10 MG TAB PO SCH (08:33)
[2016-11-21] MEDS: CREON (24K-76K-120K) 1 CAP PO SCH (08:33)
[2016-11-21] MEDS: ASCORBIC ACID 500 MG TAB PO SCH (08:33)
[2016-11-21] MEDS: CHOLECALCIFEROL 1,000 UNIT TAB PO SCH (08:34)
[2016-11-21] MEDS: CLOPIDOGREL 75 MG TAB PO SCH (08:34)
[2016-11-21] MEDS: APIXABAN 5 MG TABLET PO SCH ×2 (08:34→20:35)
[2016-11-21] MEDS: SACCHAROMYCES BOULARDII 250 MG CAP PO SCH ×2 (08:38→20:35)
[2016-11-21] MEDS: MULTIVIT/CA CARB/B CMPLX/FA TAB PO SCH (09:56)
[2016-11-21] MEDS ORDERED: VANCOMYCIN 1 GM in NS 250 ML IVPB SCH (11:00)
[2016-11-21] MEDS: CREON (12k-38k-60k) 1 CAP PO SCH ×2 (12:19→17:30)
[2016-11-21 19:51] VITALS: BP 136/65; RESP 18
[2016-11-21] MEDS: TAMSULOSIN (SR) 0.4 MG CAP PO SCH (20:35)
[2016-11-21] MEDS: ATORVASTATIN 20 MG TAB PO SCH (20:35)
[2016-11-21] MEDS: ZOLPIDEM 5 MG TAB PO PRN (20:36)
[2016-11-21] MEDS: INSULIN GLARGINE [LANtus] 3 ML PEN SC SCH (20:41)
[2016-11-22] MEDS: HYDROCODONE/APAP (5/325) TAB PO PRN ×2 (01:36→23:56)
[2016-11-22 01:39] VITALS: BP 138/67; RESP 18
[2016-11-22] MEDS: ACCU-CHEK XX SCH (02:00)
[2016-11-22] MEDS: PIPER-TAZO 2.25 GM (PMX) 50 ML IVPB SCH ×3 (05:42→22:56)
[2016-11-22 07:48] VITALS: BP 133/66; RESP 16
[2016-11-22] MEDS: INSULIN ASPART [NOVOLOG] 3 ML PEN SC SCH ×4 (08:15→20:43)
--- NOTE | 2016-11-22 08:29 | CONS ---
Date/Time of Note Date/Time of Note DATE: 11/22/16 TIME: 08:25 Assessment/Plan Assessment/Plan Problems: (1) ESRD (end stage renal disease) on dialysis Comment: for HD tomorrow (2) Peripheral vascular disease Comment: s/p debridement Rt foot.. await vasc eval and definitive plan (3) HTN (hypertension) Comment: controlled (4) Diabetes Comment: good sugar control (5) Cellulitis and abscess of foot Comment: on abx.. blood cxs are (-) Consultation Date/Type/Reason Admit Date/Time Nov 19, 2016 at 15:48 Initial Consult Date 11/20/16 Type of Consultation: renal 24 HR Interval Summary Free Text/Dictation no clinical change.. sleepy...depressed Exam/Review of Systems Vital Signs Vitals Vital Signs Date Time Temp Pulse Resp B/P Pulse Ox O2 Delivery O2 Flow Rate FiO2 11/22/16 07:48 97.6 70 16 133/66 97 Intake and Output 11/21/16 11/21/16 11/22/16 15:00 23:00 07:00 Intake Total 300 ml 750 ml 450 ml Output Total 180 ml 210 ml Balance 300 ml 570 ml 240 ml Exam Constitutional: alert Psych: no complaints Neck: supple Cardiovascular: regular rate and rhythm Gastrointestinal: soft Extremities: other (s/p Lt BKA... Rt foot wrapped) Results Result Diagram: 11/19/16202911/19/162029 Results 24 hrs Laboratory Tests Test 11/21/16 12:10 11/21/16 17:19 11/21/16 20:33 Bedside Glucose 155 154 151 Medications Medications Current Medications Ondansetron HCl (Zofran Inj) 4 mg Q6H PRN IV NAUSEA AND/OR VOMITING; Start at 17:00 Acetaminophen/ Hydrocodone Bitart ([place] (5/325)) 1 tab Q6H PRN PO MODERATE PAIN LEVEL 4-6 Last administered on 11/22/16 01:36; Admin Dose 1 TAB; Start at 17:00 Bisacodyl (Dulcolax) 5 mg DAILY PRN PO CONSTIPATION; Start 11/19/16 at 17:00 Zolpidem Tartrate (Ambien) 5 mg QHS PRN PO SLEEP Last administered on 9/16/ 17at 20:36; Admin Dose 5 MG; Start 11/19/16 at 17:00 Diagnostic Test (Pha) (Accu-Chek) 1 ea 02 XX ; Start 11/20/16 at 02:00 Miscellaneous Information 1 ea NOTE XX ; Start 11/19/16 at 17:30 Glucose (Glutose) 15 gm Q15M PRN PO DECREASED GLUCOSE; Start 11/19/16 at 17:30 Glucose (Glutose) 22.5 gm Q15M PRN PO DECREASED GLUCOSE; Start 11/19/16 at 17: 30 Dextrose (D50w Syringe) 25 ml Q15M PRN IV DECREASED GLUCOSE; Start 11/19/16 at 17:30 Dextrose (D50w Syringe) 50 ml Q15M PRN IV DECREASED GLUCOSE; Start 11/19/16 at 17:30 Glucagon (Glucagen) 1 mg Q15M PRN IM DECREASED GLUCOSE; Start 11/19/16 at 17:30 Glucose (Glutose) 15 gm Q15M PRN BUCCAL DECREASED GLUCOSE; Start 11/19/16 at 17 :30 Acetaminophen (Tylenol Tab) 650 mg Q4 PRN PO PAIN AND OR ELEVATED TEMP; Start 11/19/16 at 19:00 Ascorbic Acid (Vitamin C) 500 mg DAILY PO Last administered on 11/21/16 08:33 ; Admin Dose 500 MG; Start 11/20/16 at 09:00 Atorvastatin Calcium (Lipitor) 20 mg QHS PO Last administered on 11/21/16 20: 35; Admin Dose 20 MG; Start 11/19/16 at 21:00 Bisacodyl (Dulcolax Supp) 10 mg DAILY PRN [place] BM; Start 11/19/16 at 19:00 Calcitriol (Rocaltrol) 0.25 mcg DAILY PO Last administered on 11/21/16 08:33; Admin Dose 0.25 MCG; Start 11/20/16 at 09:00 Loratadine (Claritin) 10 mg DAILY PO Last administered on 11/21/16 08:33; Admin Dose 10 MG; Start 11/20/16 at 09:00 Multivit/Ca Carb/ B Cmplx/FA/Prenat (Sarika-Nahomi) 1 tab DAILY PO Last administered on 11/21/16 09:56; Admin Dose 1 TAB; Start 11/20/16 at 09:00 Multivitamins Therapeutic (Theragran) 1 tab DAILY PO Last administered on 08:33; Admin Dose 1 TAB; Start 11/20/16 at 09:00 Saccharomyces Boulardii (Florastor) 500 mg BID PO Last administered on 20:35; Admin Dose 500 MG; Start 11/19/16 at 21:00 Tamsulosin HCl 0.4 mg 0.4 mg HS PO Last administered on 11/21/16 20:35; Admin Dose 0.4 MG; Start 11/19/16 at 21:00 Piperacillin Sod/ Tazobactam Sod (Zosyn 2.25gm/ 50ml (Pmx)) 50 ml @ 100 mls/hr Q8 IVPB Last administered on 11/22/16 05:42; Admin Dose 100 MLS/HR; Start at 22:00 Epoetin Nito (Epogen (Esrd)) 10,000 units MoWeFr@17 SC Last administered on 17:08; Admin Dose 10,000 UNITS; Start 11/20/16 at 17:00 Insulin Glargine (Lantus) 10 unit QHS SC Last administered on 11/21/16 20:41; Admin Dose 10 UNIT; Start 11/20/16 at 21:00 Apixaban (Eliquis) 2.5 mg BID PO Last administered on 11/21/16 20:35; Admin Dose 2.5 MG; Start 11/20/16 at 21:00 Nitroglycerin (Nitroglycerin (Sl Tab) 0.4 Mg) 1 tab Q5M PRN SL ANGINA; Start at 14:30 Clopidogrel Bisulfate (plaVIX) 75 mg DAILY PO Last administered on 11/21/16 08 :34; Admin Dose 75 MG; Start 11/21/16 at 09:00 Cholecalciferol (Vitamin D) 1,000 unit DAILY PO Last administered on 11/21/16 08:34; Admin Dose 1,000 UNIT; Start 11/21/16 at 09:00 Docusate Sodium (Colace) 100 mg BID PO Last administered on 11/21/16 20:34; Admin Dose 100 MG; Start 11/20/16 at 21:00 ARCHIE YOON MD Nov 22, 2016 08:29
[2016-11-22] MEDS: CREON (12k-38k-60k) 1 CAP PO SCH ×3 (09:39→19:07)
[2016-11-22] MEDS: CALCITRIOL 0.25 MCG CAP PO SCH (09:39)
[2016-11-22] MEDS: SACCHAROMYCES BOULARDII 250 MG CAP PO SCH ×2 (09:39→20:36)
[2016-11-22] MEDS: ASCORBIC ACID 500 MG TAB PO SCH (09:39)
[2016-11-22] MEDS: DOCUSATE SODIUM 100 MG CAP PO SCH ×2 (09:39→20:36)
[2016-11-22] MEDS: LORATADINE 10 MG TAB PO SCH (09:39)
[2016-11-22] MEDS: MULTIVIT/CA CARB/B CMPLX/FA TAB PO SCH (09:39)
[2016-11-22] MEDS: CLOPIDOGREL 75 MG TAB PO SCH (09:40)
[2016-11-22] MEDS: APIXABAN 5 MG TABLET PO SCH ×2 (09:40→20:36)
[2016-11-22] MEDS: CALCIUM ACETATE 667 MG CAP PO SCH ×3 (09:40→17:28)
[2016-11-22] MEDS: MULTIVITAMINS THERAPEUTIC TAB PO SCH (09:40)
[2016-11-22] MEDS: CHOLECALCIFEROL 1,000 UNIT TAB PO SCH (09:40)
[2016-11-22 14:00] VITALS: BP 135/62; RESP 16
--- NOTE | 2016-11-22 17:17 | CONS ---
Date/Time of Note Date/Time of Note DATE: 11/22/16 TIME: 17:13 Assessment/Plan Assessment/Plan Additional Assessment/Plan 1) R foot infection with cellulitis and probable osteeo ESR and CRP are elevated suggestive of osteomyelitis. recent hx of MRSA on R foot repeat wound cx have been taken and thus far are growing a Staphylococcus aureus , likely the MRSA as before. Sensitivities are pending. Vascular studies were completed. 11/22 - continue Zosyn and Vancomycin dose adjusted for ESRD, follow-up sensitivities on the Staphylococcus 2) DM 3) ESRD on HD 4) recent R sided CVA 5) CAD Consultation Date/Type/Reason Admit Date/Time Nov 19, 2016 at 16:56 Initial Consult Date 11/20/16 Type of Consultation: Infectious Diseases 24 HR Interval Summary Free Text/Dictation Afebrile, CRP returned elevated. Cultures are growing a Staph aureus with pending sensis Exam/Review of Systems Vital Signs Vitals Vital Signs Date Time Temp Pulse Resp B/P Pulse Ox O2 Delivery O2 Flow Rate FiO2 11/22/16 14:00 97.7 70 16 135/62 94 Intake and Output 11/21/16 11/21/16 11/22/16 15:00 23:00 07:00 Intake Total 300 ml 750 ml 450 ml Output Total 180 ml 210 ml Balance 300 ml 570 ml 240 ml Exam Constitutional: alert, oriented Head: normocephalic ENMT: mucosa pink and moist Respiratory: clear to auscultation Cardiovascular: regular rate and rhythm Gastrointestinal: non-tender, soft Extremities: other (R foot is bandaged, photos on chart were revieweed, L BKA has healed) Results Result Diagram: 11/19/16202911/19/162029 Results 24 hrs Laboratory Tests Test 11/21/16 17:19 11/21/16 20:33 11/22/16 08:36 11/22/16 12:30 Bedside Glucose 154 151 111 260 H Medications Medications Current Medications Ondansetron HCl (Zofran Inj) 4 mg Q6H PRN IV NAUSEA AND/OR VOMITING; Start at 17:00 Acetaminophen/ Hydrocodone Bitart ([place] (5/325)) 1 tab Q6H PRN PO MODERATE PAIN LEVEL 4-6 Last administered on 11/22/16t 01:36; Admin Dose 1 TAB; Start at 17:00 Bisacodyl (Dulcolax) 5 mg DAILY PRN PO CONSTIPATION; Start 11/19/16 at 17:00 Zolpidem Tartrate (Ambien) 5 mg QHS PRN PO SLEEP Last administered on 20:36; Admin Dose 5 MG; Start 11/19/16 at 17:00 Diagnostic Test (Pha) (Accu-Chek) 1 ea 02 XX ; Start 11/20/16 at 02:00 Miscellaneous Information 1 ea NOTE XX ; Start 11/19/16 at 17:30 Glucose (Glutose) 15 gm Q15M PRN PO DECREASED GLUCOSE; Start 11/19/16 at 17:30 Glucose (Glutose) 22.5 gm Q15M PRN PO DECREASED GLUCOSE; Start 11/19/16 at 17: 30 Dextrose (D50w Syringe) 25 ml Q15M PRN IV DECREASED GLUCOSE; Start 11/19/16 at 17:30 Dextrose (D50w Syringe) 50 ml Q15M PRN IV DECREASED GLUCOSE; Start 11/19/16 at 17:30 Glucagon (Glucagen) 1 mg Q15M PRN IM DECREASED GLUCOSE; Start 11/19/16 at 17:30 Glucose (Glutose) 15 gm Q15M PRN BUCCAL DECREASED GLUCOSE; Start 11/19/16 at 17 :30 Acetaminophen (Tylenol Tab) 650 mg Q4 PRN PO PAIN AND OR ELEVATED TEMP; Start 11/19/16 at 19:00 Ascorbic Acid (Vitamin C) 500 mg DAILY PO Last administered on 11/22/16 09:39 ; Admin Dose 500 MG; Start 11/20/16 at 09:00 Atorvastatin Calcium (Lipitor) 20 mg QHS PO Last administered on 11/21/16 20: 35; Admin Dose 20 MG; Start 11/19/16 at 21:00 Bisacodyl (Dulcolax Supp) 10 mg DAILY PRN [place] BM; Start 11/19/16 at 19:00 Calcitriol (Rocaltrol) 0.25 mcg DAILY PO Last administered on 11/22/16 09:39; Admin Dose 0.25 MCG; Start 11/20/16 at 09:00 Loratadine (Claritin) 10 mg DAILY PO Last administered on 11/22/16 09:39; Admin Dose 10 MG; Start 11/20/16 at 09:00 Multivit/Ca Carb/ B Cmplx/FA/Prenat (Sarika-Nahomi) 1 tab DAILY PO Last administered on 11/22/16 09:39; Admin Dose 1 TAB; Start 11/20/16 at 09:00 Multivitamins Therapeutic (Theragran) 1 tab DAILY PO Last administered on 09:40; Admin Dose 1 TAB; Start 11/20/16 at 09:00 Saccharomyces Boulardii (Florastor) 500 mg BID PO Last administered on 09:39; Admin Dose 500 MG; Start 11/19/16 at 21:00 Tamsulosin HCl 0.4 mg 0.4 mg HS PO Last administered on 11/21/16 20:35; Admin Dose 0.4 MG; Start 11/19/16 at 21:00 Piperacillin Sod/ Tazobactam Sod (Zosyn 2.25gm/ 50ml (Pmx)) 50 ml @ 100 mls/hr Q8 IVPB Last administered on 11/22/16 16:03; Admin Dose 100 MLS/HR; Start at 22:00 Epoetin Nito (Epogen (Esrd)) 10,000 units MoWeFr@17 SC Last administered on 17:08; Admin Dose 10,000 UNITS; Start 11/20/16 at 17:00 Insulin Glargine (Lantus) 10 unit QHS [place] Last administered on 11/21/16 20:41; Admin Dose 10 UNIT; Start 11/20/16 at 21:00 Apixaban (Eliquis) 2.5 mg BID PO Last administered on 11/22/16 09:40; Admin Dose 2.5 MG; Start 11/20/16 at 21:00 Nitroglycerin (Nitroglycerin (Sl Tab) 0.4 Mg) 1 tab Q5M PRN SL ANGINA; Start at 14:30 Clopidogrel Bisulfate (plaVIX) 75 mg DAILY PO Last administered on 11/22/16 09 :40; Admin Dose 75 MG; Start 11/21/16 at 09:00 Cholecalciferol (Vitamin D) 1,000 unit DAILY PO Last administered on 11/22/16 09:40; Admin Dose 1,000 UNIT; Start 11/21/16 at 09:00 Docusate Sodium (Colace) 100 mg BID PO Last administered on 11/22/16t 09:39; Admin Dose 100 MG; Start 11/20/16 at 21:00 ASAD SÁNCHEZ Nov 22, 2016 17:17
[2016-11-22 19:44] VITALS: BP 146/68; RESP 18
[2016-11-22] MEDS: ATORVASTATIN 20 MG TAB PO SCH (20:35)
[2016-11-22] MEDS: TAMSULOSIN (SR) 0.4 MG CAP PO SCH (20:35)
[2016-11-22] MEDS: INSULIN GLARGINE [LANtus] 3 ML PEN SC SCH (20:44)
[2016-11-22] MEDS: ZOLPIDEM 5 MG TAB PO PRN (20:47)
[2016-11-23] VITALS (12 sets, daily range): BP systolic 114–158; BP diastolic 60–84; PULSE 72–78; RESP 18
[2016-11-23] MEDS: ACCU-CHEK XX SCH (02:00)
[2016-11-23] MEDS: PIPER-TAZO 2.25 GM (PMX) 50 ML IVPB SCH ×3 (05:54→23:19)
--- NOTE | 2016-11-23 07:31 | CONS ---
Date/Time of Note Date/Time of Note DATE: 11/23/16 TIME: 07:29 Assessment/Plan Assessment/Plan Chief Complaint/Hosp Course 1) R foot infection with cellulitis and probable osteo ESR is elevated but normal WBC recent hx of MRSA on R foot repeat wound cx have been taken podiatry did some debridement today await cx results continue with vanco/zosyn at present pt will likely need R BKA 11/23 - if no surgery is planned than pt will need MRI of R foot to verify that pt has osteo and will need 6 weeks of antibiotics MRSA from wound, to initiate isolation continue vanco/zosyn for at least 2 weeks 2) DM 3) ESRD on HD 4) recent R sided CVA 5) CAD Problems: Consultation Date/Type/Reason Admit Date/Time Nov 19, 2016 at 16:56 Initial Consult Date 11/20/16 Type of Consultation: Infectious Diseases 24 HR Interval Summary Free Text/Dictation pt has occasional pain to R foot, not currently no N, V, D breathing is ok Exam/Review of Systems Vital Signs Vitals Vital Signs Date Time Temp Pulse Resp B/P Pulse Ox O2 Delivery O2 Flow Rate FiO2 11/23/16 01:50 97.8 83 18 153/71 100 Intake and Output 11/22/16 11/22/16 11/23/16 15:00 23:00 07:00 Intake Total 890 ml 500 ml Output Total 100 ml 200 ml Balance 790 ml 300 ml Exam Constitutional: alert Respiratory: clear to auscultation Cardiovascular: regular rate and rhythm Gastrointestinal: non-tender, soft Extremities: other (R foot is bandaged) Results Result Diagram: 11/19/16202911/19/162029 Results 24 hrs Laboratory Tests Test 11/22/16 08:36 11/22/16 12:30 11/22/16 17:24 11/22/16 20:41 Bedside Glucose 111 260 H 170 230 H Medications Medications Current Medications Ondansetron HCl (Zofran Inj) 4 mg Q6H PRN IV NAUSEA AND/OR VOMITING; Start at 17:00 Acetaminophen/ Hydrocodone Bitart ([place] (5/325)) 1 tab Q6H PRN PO MODERATE PAIN LEVEL 4-6 Last administered on 11/22/16t 23:56; Admin Dose 1 TAB; Start at 17:00 Bisacodyl (Dulcolax) 5 mg DAILY PRN PO CONSTIPATION; Start 11/19/16 at 17:00 Zolpidem Tartrate (Ambien) 5 mg QHS PRN PO SLEEP Last administered on 20:47; Admin Dose 5 MG; Start 11/19/16 at 17:00 Diagnostic Test (Pha) (Accu-Chek) 1 ea 02 XX ; Start 11/20/16 at 02:00 Miscellaneous Information 1 ea NOTE XX ; Start 11/19/16 at 17:30 Glucose (Glutose) 15 gm Q15M PRN PO DECREASED GLUCOSE; Start 11/19/16 at 17:30 Glucose (Glutose) 22.5 gm Q15M PRN PO DECREASED GLUCOSE; Start 11/19/16 at 17: 30 Dextrose (D50w Syringe) 25 ml Q15M PRN IV DECREASED GLUCOSE; Start 11/19/16 at 17:30 Dextrose (D50w Syringe) 50 ml Q15M PRN IV DECREASED GLUCOSE; Start 11/19/16 at 17:30 Glucagon (Glucagen) 1 mg Q15M PRN IM DECREASED GLUCOSE; Start 11/19/16 at 17:30 Glucose (Glutose) 15 gm Q15M PRN BUCCAL DECREASED GLUCOSE; Start 11/19/16 at 17 :30 Acetaminophen (Tylenol Tab) 650 mg Q4 PRN PO PAIN AND OR ELEVATED TEMP; Start 11/19/16 at 19:00 Ascorbic Acid (Vitamin C) 500 mg DAILY PO Last administered on 11/22/16 09:39 ; Admin Dose 500 MG; Start 11/20/16 at 09:00 Atorvastatin Calcium (Lipitor) 20 mg QHS PO Last administered on 11/22/16 20: 35; Admin Dose 20 MG; Start 11/19/16 at 21:00 Bisacodyl (Dulcolax Supp) 10 mg DAILY PRN [place] BM; Start 11/19/16 at 19:00 Calcitriol (Rocaltrol) 0.25 mcg DAILY PO Last administered on 11/22/16 09:39; Admin Dose 0.25 MCG; Start 11/20/16 at 09:00 Loratadine (Claritin) 10 mg DAILY PO Last administered on 11/22/16 09:39; Admin Dose 10 MG; Start 11/20/16 at 09:00 Multivit/Ca Carb/ B Cmplx/FA/Prenat (Sarika-Nahomi) 1 tab DAILY PO Last administered on 11/22/16 09:39; Admin Dose 1 TAB; Start 11/20/16 at 09:00 Multivitamins Therapeutic (Theragran) 1 tab DAILY PO Last administered on 09:40; Admin Dose 1 TAB; Start 11/20/16 at 09:00 Saccharomyces Boulardii (Florastor) 500 mg BID PO Last administered on 20:36; Admin Dose 500 MG; Start 11/19/16 at 21:00 Tamsulosin HCl 0.4 mg 0.4 mg HS PO Last administered on 11/22/16 20:35; Admin Dose 0.4 MG; Start 11/19/16 at 21:00 Piperacillin Sod/ Tazobactam Sod (Zosyn 2.25gm/ 50ml (Pmx)) 50 ml @ 100 mls/hr Q8 IVPB Last administered on 11/23/16 05:54; Admin Dose 100 MLS/HR; Start at 22:00 Epoetin Nito (Epogen (Esrd)) 10,000 units MoWeFr@17 SC Last administered on 17:08; Admin Dose 10,000 UNITS; Start 11/20/16 at 17:00 Insulin Glargine (Lantus) 10 unit QHS SC Last administered on 11/22/16 20:44; Admin Dose 10 UNIT; Start 11/20/16 at 21:00 Apixaban (Eliquis) 2.5 mg BID PO Last administered on 11/22/16 20:36; Admin Dose 2.5 MG; Start 11/20/16 at 21:00 Nitroglycerin (Nitroglycerin (Sl Tab) 0.4 Mg) 1 tab Q5M PRN SL ANGINA; Start at 14:30 Clopidogrel Bisulfate (plaVIX) 75 mg DAILY PO Last administered on 11/22/16 09 :40; Admin Dose 75 MG; Start 11/21/16 at 09:00 Cholecalciferol (Vitamin D) 1,000 unit DAILY PO Last administered on 11/22/16 09:40; Admin Dose 1,000 UNIT; Start 11/21/16 at 09:00 Docusate Sodium (Colace) 100 mg BID PO Last administered on 11/22/16t 20:36; Admin Dose 100 MG; Start 11/20/16 at 21:00 PEDRO PATRICK MD Nov 23, 2016 07:31
[2016-11-23] MEDS: INSULIN ASPART [NOVOLOG] 3 ML PEN SC SCH ×4 (08:15→20:44)
[2016-11-23] MEDS: CREON (12k-38k-60k) 1 CAP PO SCH ×3 (08:18→17:21)
[2016-11-23] MEDS: CALCITRIOL 0.25 MCG CAP PO SCH (08:19)
[2016-11-23] MEDS: CHOLECALCIFEROL 1,000 UNIT TAB PO SCH (08:19)
[2016-11-23] MEDS: SACCHAROMYCES BOULARDII 250 MG CAP PO SCH ×2 (08:19→20:38)
[2016-11-23] MEDS: MULTIVIT/CA CARB/B CMPLX/FA TAB PO SCH (08:19)
[2016-11-23] MEDS: DOCUSATE SODIUM 100 MG CAP PO SCH ×2 (08:20→20:38)
[2016-11-23] MEDS: MULTIVITAMINS THERAPEUTIC TAB PO SCH (08:20)
[2016-11-23] MEDS: LORATADINE 10 MG TAB PO SCH (08:20)
[2016-11-23] MEDS: CLOPIDOGREL 75 MG TAB PO SCH (08:20)
[2016-11-23] MEDS: APIXABAN 5 MG TABLET PO SCH ×2 (08:21→20:39)
[2016-11-23] MEDS: ASCORBIC ACID 500 MG TAB PO SCH (08:21)
[2016-11-23] MEDS: CALCIUM ACETATE 667 MG CAP PO SCH ×3 (08:23→17:21)
--- NOTE | 2016-11-23 08:28 | PN ---
Date/Time of Note Date/Time of Note DATE: 11/23/16 TIME: 08:23 Assessment/Plan VTE Prophylaxis VTE Prophylaxis Intervention: other Lines/Catheters IV Catheter Type (from [facility] Urinary Cath still in place: No Assessment/Plan Chief Complaint/Hosp Course 1. R foot cellulitis , ischemia . He is being treated with antibiotics and foot debridement by Hand Alterations Tailor . He is now growing MRSA from the right foot ulcer. He is on isolation. The patient and I had a discussion about possible surgery. Since the patient does not walk he is considering a transmetatarsal amputation , below the knee amputation, or an [id number] amputation of the right leg. We also discussed the possibility of stopping dialysis and what that would mean as far as pain and end of life. 2.ESRD , he is dialyzed . He was dialyzed this morning . Next dialysis is for today. 3. he is being seen by ID , vascular and podiatry 4. I would consider R leg amputation , discussed with patient and scorekeeper . Patient is considering all of the above options. Problems: Subjective 24 Hr Interval Summary Free Text/Dictation He is sleeping but arouses easily to verbal stimuli. He has no new complaints. Constitutional: no complaints Cardiovascular: no complaints Gastrointestinal: no complaints Genitourinary: no complaints Musculoskeletal: no complaints Neurologic: no complaints Psychological: depression Exam/Review of Systems Vital Signs Vitals Vital Signs Date Time Temp Pulse Resp B/P Pulse Ox O2 Delivery O2 Flow Rate FiO2 11/23/16 07:28 97.4 74 18 129/63 95 Intake and Output 11/22/16 11/22/16 11/23/16 15:00 23:00 07:00 Intake Total 890 ml 500 ml Output Total 100 ml 200 ml Balance 790 ml 300 ml Exam The right foot is bandaged and has ischemic cellulitis on the toes. Left leg is below the knee amputation stump which has no lesions. Constitutional: alert, frail, oriented Respiratory: clear to auscultation, normal air movement Cardiovascular: regular rate and rhythm Gastrointestinal: soft Results Result Diagram: 11/19/16202911/19/162029 Results 24 hrs Laboratory Tests Test 11/22/16 08:36 11/22/16 12:30 11/22/16 17:24 11/22/16 20:41 Bedside Glucose 111 260 H 170 230 H Test 11/23/16 08:17 Bedside Glucose 82 Medications Medications Current Medications Ondansetron HCl (Zofran Inj) 4 mg Q6H PRN IV NAUSEA AND/OR VOMITING; Start at 17:00 Acetaminophen/ Hydrocodone Bitart ([place] (5/325)) 1 tab Q6H PRN PO MODERATE PAIN LEVEL 4-6 Last administered on 11/22/16 23:56; Admin Dose 1 TAB; Start at 17:00 Bisacodyl (Dulcolax) 5 mg DAILY PRN PO CONSTIPATION; Start 11/19/16 at 17:00 Zolpidem Tartrate (Ambien) 5 mg QHS PRN PO SLEEP Last administered on 20:47; Admin Dose 5 MG; Start 11/19/16 at 17:00 Diagnostic Test (Pha) (Accu-Chek) 1 ea 02 XX ; Start 11/20/16 at 02:00 Miscellaneous Information 1 ea NOTE XX ; Start 11/19/16 at 17:30 Glucose (Glutose) 15 gm Q15M PRN PO DECREASED GLUCOSE; Start 11/19/16 at 17:30 Glucose (Glutose) 22.5 gm Q15M PRN PO DECREASED GLUCOSE; Start 11/19/16 at 17: 30 Dextrose (D50w Syringe) 25 ml Q15M PRN IV DECREASED GLUCOSE; Start 11/19/16 at 17:30 Dextrose (D50w Syringe) 50 ml Q15M PRN IV DECREASED GLUCOSE; Start 11/19/16 at 17:30 Glucagon (Glucagen) 1 mg Q15M PRN IM DECREASED GLUCOSE; Start 11/19/16 at 17:30 Glucose (Glutose) 15 gm Q15M PRN BUCCAL DECREASED GLUCOSE; Start 11/19/16 at 17 :30 Acetaminophen (Tylenol Tab) 650 mg Q4 PRN PO PAIN AND OR ELEVATED TEMP; Start 11/19/16 at 19:00 Ascorbic Acid (Vitamin C) 500 mg DAILY PO Last administered on 11/23/16 08:21 ; Admin Dose 500 MG; Start 11/20/16 at 09:00 Atorvastatin Calcium (Lipitor) 20 mg QHS PO Last administered on 11/22/16 20: 35; Admin Dose 20 MG; Start 11/19/16 at 21:00 Bisacodyl (Dulcolax Supp) 10 mg DAILY PRN [place] BM; Start 11/19/16 at 19:00 Calcitriol (Rocaltrol) 0.25 mcg DAILY PO Last administered on 11/23/16 08:19; Admin Dose 0.25 MCG; Start 11/20/16 at 09:00 Loratadine (Claritin) 10 mg DAILY PO Last administered on 11/23/16 08:20; Admin Dose 10 MG; Start 11/20/16 at 09:00 Multivit/Ca Carb/ B Cmplx/FA/Prenat (Sarika-Nahomi) 1 tab DAILY PO Last administered on 11/23/16 08:19; Admin Dose 1 TAB; Start 11/20/16 at 09:00 Multivitamins Therapeutic (Theragran) 1 tab DAILY PO Last administered on 08:20; Admin Dose 1 TAB; Start 11/20/16 at 09:00 Saccharomyces Boulardii (Florastor) 500 mg BID PO Last administered on 08:19; Admin Dose 500 MG; Start 11/19/16 at 21:00 Tamsulosin HCl 0.4 mg 0.4 mg HS PO Last administered on 11/22/16 20:35; Admin Dose 0.4 MG; Start 11/19/16 at 21:00 Piperacillin Sod/ Tazobactam Sod (Zosyn 2.25gm/ 50ml (Pmx)) 50 ml @ 100 mls/hr Q8 IVPB Last administered on 11/23/16 05:54; Admin Dose 100 MLS/HR; Start at 22:00 Epoetin Nito (Epogen (Esrd)) 10,000 units MoWeFr@17 SC Last administered on 17:08; Admin Dose 10,000 UNITS; Start 11/20/16 at 17:00 Insulin Glargine (Lantus) 10 unit QHS SC Last administered on 11/22/16 20:44; Admin Dose 10 UNIT; Start 11/20/16 at 21:00 Apixaban (Eliquis) 2.5 mg BID PO Last administered on 11/23/16 08:21; Admin Dose 2.5 MG; Start 11/20/16 at 21:00 Nitroglycerin (Nitroglycerin (Sl Tab) 0.4 Mg) 1 tab Q5M PRN SL ANGINA; Start at 14:30 Clopidogrel Bisulfate (plaVIX) 75 mg DAILY PO Last administered on 11/23/16 08 :20; Admin Dose 75 MG; Start 11/21/16 at 09:00 Cholecalciferol (Vitamin D) 1,000 unit DAILY PO Last administered on 11/23/16 08:19; Admin Dose 1,000 UNIT; Start 11/21/16 at 09:00 Docusate Sodium (Colace) 100 mg BID PO Last administered on 11/23/16 08:20; Admin Dose 100 MG; Start 11/20/16 at 21:00 CELESTE BHATT MD Nov 23, 2016 08:28
--- NOTE | 2016-11-23 16:55 | CONS ---
DATE OF ADMISSION: 11/19/2016 DATE OF CONSULTATION: 11/23/2016 Vascular Surgery History and Physical Dear Doctors, The patient is a 70-year-old gentleman known to our vascular surgery service secondary to longstanding history of bilateral lower extremity atherosclerosis and gangrene. As of recent, the patient had undergone a left below-knee amputation for his left lower extremity Charcot's foot and atherosclerosis in which she had some delayed wound healing, at the BK stump after having a fall and wound dehiscence in which was revised and eventually the BK stump healed. Further, the patient had developed gangrene of his right lower extremity in which he underwent a fem pedal bypass in order to salvage his right lower extremity. Unfortunately, he has had multiple medical admissions with [place], stroke, hypotension, which he has been requiring multiple readmissions to the hospital for evaluation. At the moment the patient was seen in our Wound Care Office on in which she presented with right lower extremity diabetic foot infection, cellulitis and gangrene of his 4th and 5th toe. As of recent, the 4th toe had auto amputated and had developed a significant amount of pus in his amputation side and of the fifth toe. At the moment, the patient seems to be considering withdrawing all cares and not wanting any procedures done. He would like to be comfortable, not to undergo any further intervention. REVIEW OF SYSTEMS: Fourteen point review performed negative except was mentioned in HPI. PAST MEDICAL HISTORY: 1. Coronary artery disease. 2. Diabetes type 2. 3. Hyperlipidemia. 4. Hypertension. 5. Pancreatitis. 6. End-stage renal disease, on hemodialysis Wednesday, Wednesday, Wednesday. 7. Severe postural hypotension. 8. Diabetic neuropathy. 9. Diabetic retinopathy. 10. Bilateral lower extremity atherosclerosis with gangrene. 11. Left lower extremity Charcot's foot. 12. Right lower extremity heel ulcer. 13. History of stroke. 14. History of [place]. PAST SURGICAL HISTORY: 1. Right upper extremity AV fistula. 2. Multiple chest wall catheters. 3. Left below-knee amputation. 4. Right lower extremity revascularization. 5. Multiple debridements of the right foot. FAMILY HISTORY: Hypertension. SOCIAL HISTORY: Denies current tobacco, alcohol or illicit drug use. PHYSICAL EXAMINATION: GENERAL: Alert, oriented x3. No apparent distress. HEENT: Normocephalic, atraumatic. EOMI. Mucosa moist. NECK: Supple. No carotid bruit. LUNGS: Clear to auscultation bilaterally. No crackles. HEART: S1, S2 present. No murmurs. ABDOMEN: Soft, nontender, nondistended. Bowel sounds positive. EXTREMITIES: Left lower extremity, palpable femoral pulse. Bk stump well healed. The capillary refill about 3 seconds. Motor sensory intact. Right lower extremity, palpable femoral pulse. Palpable graft at the espinal where it inserts into the distal AT. Heel ulcer, this seems to be dry and no surrounding erythema. Right 4th and fifth toe gangrene with purulent drainage. No decreased surrounding erythema from what we had seen last week in the office. IMPRESSION AND PLAN: 1. Bilateral lower extremity atherosclerosis with gangrene: It seems the patient's right lower extremity gangrene of the heel and the 4th and fifth toe is recent. Unfortunately, the patient's right lower extremity revascularization has provided him some limb salvage. However, the patient has severe pedal disease in which in combination with his diabetes, he will require further debridement of the 4th and 5th toe. Unfortunately, the patient feels that he would like to be comfortable and not to have any further interventions as he is exhausted from multiple procedures and readmissions to the hospital secondary to his medical health. I will discuss this matter further with our multidisciplinary team. Meds to provide him the most care that he chooses and at the same time, respecting his dignity. From a vascular surgery standpoint, the patient would be cleared to undergo further debridements. 2. End-stage renal disease: At the moment patient has a chest wall catheter that is functioning well. The patient also would require a new arterioventricular fistula creation. However as mentioned above, we will plan to await for any surgical intervention as he is to tired to continue with his current medical health. Discussed findings, plan and management with the patient. He understands. Optimize vascular status (BP meds, diet, nutrition, exercise, sugar control, antiplatelets). Thank you for allowing us to partake in the care of your patient. Please call with any questions. Appreciate podiatry input and continue local wound care as recommended. Dictated By: Johny Conteh MD /[email or web address] /Document#: [id number]
[2016-11-23] MEDS: EPOETIN 10000 UNITS/1 ML INJ (ESRD) SC SCH (17:26)
[2016-11-23] MEDS: HYDROCODONE/APAP (5/325) TAB PO PRN (20:37)
[2016-11-23] MEDS: TAMSULOSIN (SR) 0.4 MG CAP PO SCH (20:38)
[2016-11-23] MEDS: ATORVASTATIN 20 MG TAB PO SCH (20:38)
[2016-11-23] MEDS: INSULIN GLARGINE [LANtus] 3 ML PEN SC SCH (22:04)
[2016-11-23] MEDS: ZOLPIDEM 5 MG TAB PO PRN (23:19)
[2016-11-24] MEDS: ACCU-CHEK XX SCH (02:00)
[2016-11-24 02:13] VITALS: BP 134/61; RESP 18
[2016-11-24] MEDS: PIPER-TAZO 2.25 GM (PMX) 50 ML IVPB SCH ×3 (05:36→22:38)
[2016-11-24 06:20] LABS: BASOPHIL # 0.1 10^3/ul (0.0-0.1); BASOPHILS % 0.8 % (0.0-2.0); EOSINOPHILS # 0.3 10^3/ul (0.0-0.5); EOSINOPHILS % 3.8 % (0.0-7.0); HEMATOCRIT 31.4 % (42.0-52.0); LYMPHOCYTES # 1.7 10^3/ul (0.8-2.9); LYMPHOCYTES % 19.6 % (15.0-51.0); MEAN CORPUSCULAR HEMOGLOBIN 30.4 pg (29.0-33.0); MEAN CORPUSCULAR HGB CONC 31.8 g/dl (32.0-37.0); MEAN CORPUSCULAR VOLUME 95.4 fl (82.0-101.0); MEAN PLATELET VOLUME 10.1 fl (7.4-10.4); MONOCYTE # 0.8 10^3/ul (0.3-0.9); MONOCYTES % 8.6 % (0.0-11.0); NEUTROPHIL # 5.8 10^3/ul (1.6-7.5); NEUTROPHILS % 66.5 % (39.0-77.0); PLATELET COUNT 187 10^3/UL (140-415); RED BLOOD COUNT 3.29 10^6/ul (4.70-6.10); RED CELL DISTRIBUTION WIDTH 16.9 % (11.5-14.5); WHITE BLOOD COUNT 8.7 10^3/ul (4.8-10.8)
[2016-11-24 07:03] LABS: CALCIUM 8.6 mg/dl (8.4-10.2); CREATININE 5.26 mg/dl (0.61-1.24); POTASSIUM 4.2 mmol/L (3.5-5.1)
[2016-11-24 07:23] VITALS: BP 134/63; RESP 20
[2016-11-24] MEDS: INSULIN ASPART [NOVOLOG] 3 ML PEN SC SCH ×4 (07:56→20:18)
[2016-11-24] MEDS: CREON (12k-38k-60k) 1 CAP PO SCH ×3 (07:57→17:22)
[2016-11-24] MEDS: CALCIUM ACETATE 667 MG CAP PO SCH ×3 (07:58→17:21)
[2016-11-24] MEDS: LORATADINE 10 MG TAB PO SCH (08:00)
[2016-11-24] MEDS: APIXABAN 5 MG TABLET PO SCH ×2 (08:00→20:08)
[2016-11-24] MEDS: MULTIVIT/CA CARB/B CMPLX/FA TAB PO SCH (08:01)
[2016-11-24] MEDS: MULTIVITAMINS THERAPEUTIC TAB PO SCH (08:01)
[2016-11-24] MEDS: SACCHAROMYCES BOULARDII 250 MG CAP PO SCH ×2 (08:01→20:07)
[2016-11-24] MEDS: CHOLECALCIFEROL 1,000 UNIT TAB PO SCH (08:01)
[2016-11-24] MEDS: CALCITRIOL 0.25 MCG CAP PO SCH (08:01)
[2016-11-24] MEDS: ASCORBIC ACID 500 MG TAB PO SCH (08:01)
[2016-11-24] MEDS: CLOPIDOGREL 75 MG TAB PO SCH (08:01)
[2016-11-24] MEDS: DOCUSATE SODIUM 100 MG CAP PO SCH ×2 (08:02→20:08)
--- NOTE | 2016-11-24 08:43 | CONS ---
Date/Time of Note Date/Time of Note DATE: 11/24/16 TIME: 08:40 Assessment/Plan Assessment/Plan Chief Complaint/Hosp Course 1. R foot cellulitis , ischemia . He is being treated with antibiotics and foot debridement by Pie Cutter . He is now growing MRSA from the right foot ulcer. He is on isolation. The patient and I had a discussion about possible surgery. Since the patient does not walk he is considering a transmetatarsal amputation , below the knee amputation, or an [id number]-[id number] amputation of the right leg. We also discussed the possibility of stopping dialysis and what that would mean as far as pain and end of life. 2.ESRD , he is dialyzed [facility] . Next dialysis for tomorrow.. 3. he is being seen by ID , vascular and podiatry 4. I would consider R leg amputation , discussed with patient and catering assistant . Patient is considering all of the above options. Problems: Consultation Date/Type/Reason Admit Date/Time Nov 19, 2016 at 16:56 Initial Consult Date 11/20/16 Type of Consultation: Infectious Diseases 24 HR Interval Summary Free Text/Dictation He is awake and alert this morning. He is sitting up eating breakfast. We discussed several options regarding his right foot. Whether he wants to continue antibiotics or consider an amputation of the right foot and partial leg. Constitutional: no complaints Exam/Review of Systems Vital Signs Vitals Vital Signs Date Time Temp Pulse Resp B/P Pulse Ox O2 Delivery O2 Flow Rate FiO2 11/24/16 07:23 98.0 76 20 134/63 96 Intake and Output 11/23/16 11/23/16 11/24/16 15:00 23:00 07:00 Intake Total 500 ml 610 ml 400 ml Output Total 3500 ml 200 ml Balance -3000 ml 610 ml 200 ml Exam Right foot has a bandage with an ulcer on the forefoot status post auto amputation of right fourth toe and a decubitus ulcer on the heel. Constitutional: alert, frail, oriented Eyes: nl conjunctiva ENMT: nl external ears & nose, nl lips & teeth Neck: non-tender, supple Respiratory: clear to auscultation Cardiovascular: regular rate and rhythm Gastrointestinal: soft Results Result Diagram: 11/24/16 0551 11/24/16 0551 Results 24 hrs Laboratory Tests Test 11/23/16 12:22 11/23/16 17:20 11/23/16 20:43 11/24/16 05:51 Bedside Glucose 115 93 154 White Blood Count 8.7 Red Blood Count 3.29 L Hemoglobin 10.0 L Hematocrit 31.4 L Mean Corpuscular Volume 95.4 Mean Corpuscular Hemoglobin 30.4 Mean Corpuscular Hemoglobin Concent 31.8 L Red Cell Distribution Width 16.9 H Platelet Count 187 Mean Platelet Volume 10.1 Neutrophils % 66.5 Lymphocytes % 19.6 Monocytes % 8.6 Eosinophils % 3.8 Basophils % 0.8 Nucleated Red Blood Cells % 0.0 Neutrophils # 5.8 Lymphocytes # 1.7 Monocytes # 0.8 Eosinophils # 0.3 Basophils # 0.1 Nucleated Red Blood Cells # 0.0 Sodium Level 134 L Potassium Level 4.2 Chloride Level 98 Carbon Dioxide Level 27 Anion Gap 13 Blood Urea Nitrogen 43 H Creatinine 5.26 H Glucose Level 134 Calcium Level 8.6 Random Vancomycin Level 17.1 Medications Medications Current Medications Ondansetron HCl (Zofran Inj) 4 mg Q6H PRN IV NAUSEA AND/OR VOMITING; Start at 17:00 Acetaminophen/ Hydrocodone Bitart ([place] (5/325)) 1 tab Q6H PRN PO MODERATE PAIN LEVEL 4-6 Last administered on 11/23/16 20:37; Admin Dose 1 TAB; Start at 17:00 Bisacodyl (Dulcolax) 5 mg DAILY PRN PO CONSTIPATION; Start 11/19/16 at 17:00 Zolpidem Tartrate (Ambien) 5 mg QHS PRN PO SLEEP Last administered on 23:19; Admin Dose 5 MG; Start 11/19/16 at 17:00 Diagnostic Test (Pha) (Accu-Chek) 1 ea 02 XX ; Start 11/20/16 at 02:00 Miscellaneous Information 1 ea NOTE XX ; Start 11/19/16 at 17:30 Glucose (Glutose) 15 gm Q15M PRN PO DECREASED GLUCOSE; Start 11/19/16 at 17:30 Glucose (Glutose) 22.5 gm Q15M PRN PO DECREASED GLUCOSE; Start 11/19/16 at 17: 30 Dextrose (D50w Syringe) 25 ml Q15M PRN IV DECREASED GLUCOSE; Start 11/19/16 at 17:30 Dextrose (D50w Syringe) 50 ml Q15M PRN IV DECREASED GLUCOSE; Start 11/19/16 at 17:30 Glucagon (Glucagen) 1 mg Q15M PRN IM DECREASED GLUCOSE; Start 11/19/16 at 17:30 Glucose (Glutose) 15 gm Q15M PRN BUCCAL DECREASED GLUCOSE; Start 11/19/16 at 17 :30 Acetaminophen (Tylenol Tab) 650 mg Q4 PRN PO PAIN AND OR ELEVATED TEMP; Start 11/19/16 at 19:00 Ascorbic Acid (Vitamin C) 500 mg DAILY PO Last administered on 11/24/16 08:01 ; Admin Dose 500 MG; Start 11/20/16 at 09:00 Atorvastatin Calcium (Lipitor) 20 mg QHS PO Last administered on 11/23/16 20: 38; Admin Dose 20 MG; Start 11/19/16 at 21:00 Bisacodyl (Dulcolax Supp) 10 mg DAILY PRN [place] BM; Start 11/19/16 at 19:00 Calcitriol (Rocaltrol) 0.25 mcg DAILY PO Last administered on 11/24/16 08:01; Admin Dose 0.25 MCG; Start 11/20/16 at 09:00 Loratadine (Claritin) 10 mg DAILY PO Last administered on 11/24/16 08:00; Admin Dose 10 MG; Start 11/20/16 at 09:00 Multivit/Ca Carb/ B Cmplx/FA/Prenat (Sarika-Nahomi) 1 tab DAILY PO Last administered on 11/24/16 08:01; Admin Dose 1 TAB; Start 11/20/16 at 09:00 Multivitamins Therapeutic (Theragran) 1 tab DAILY PO Last administered on 08:01; Admin Dose 1 TAB; Start 11/20/16 at 09:00 Saccharomyces Boulardii (Florastor) 500 mg BID PO Last administered on 08:01; Admin Dose 500 MG; Start 11/19/16 at 21:00 Tamsulosin HCl 0.4 mg 0.4 mg HS PO Last administered on 11/23/16 20:38; Admin Dose 0.4 MG; Start 11/19/16 at 21:00 Piperacillin Sod/ Tazobactam Sod (Zosyn 2.25gm/ 50ml (Pmx)) 50 ml @ 100 mls/hr Q8 IVPB Last administered on 11/24/16 05:36; Admin Dose 100 MLS/HR; Start at 22:00 Epoetin Nito (Epogen (Esrd)) 10,000 units MoWeFr@17 SC Last administered on 17:26; Admin Dose 10,000 UNITS; Start 11/20/16 at 17:00 Insulin Glargine (Lantus) 10 unit QHS SC Last administered on 11/23/16 22:04; Admin Dose 10 UNIT; Start 11/20/16 at 21:00 Apixaban (Eliquis) 2.5 mg BID PO Last administered on 11/24/16 08:00; Admin Dose 2.5 MG; Start 11/20/16 at 21:00 Nitroglycerin (Nitroglycerin (Sl Tab) 0.4 Mg) 1 tab Q5M PRN SL ANGINA; Start at 14:30 Clopidogrel Bisulfate (plaVIX) 75 mg DAILY PO Last administered on 11/24/16 08 :01; Admin Dose 75 MG; Start 11/21/16 at 09:00 Cholecalciferol (Vitamin D) 1,000 unit DAILY PO Last administered on 11/24/16 08:01; Admin Dose 1,000 UNIT; Start 11/21/16 at 09:00 Docusate Sodium (Colace) 100 mg BID PO Last administered on 11/24/16 08:02; Admin Dose 100 MG; Start 11/20/16 at 21:00 CELESTE BHATT MD Nov 24, 2016 08:43
--- NOTE | 2016-11-24 09:32 | PN ---
Date/Time of Note Date/Time of Note DATE: 11/24/16 TIME: 09:26 Assessment/Plan Lines/Catheters IV Catheter Type (from [facility]): Saline Lock Jimenez in Place (from [facility]): No Assessment/Plan Chief Complaint/Hosp Course -Bilateral lower extremity atherosclerosis with gangrene: It seems the patient' s right lower extremity gangrene of the heel and the 4th and fifth toe may be worsening. The patient's right lower extremity revascularization has provided him some limb salvage. However, the patient has severe pedal disease in which in combination with his diabetes, he will require further debridement of the 4th and 5th toe. -Unfortunately, the patient feels that he would like to be comfortable and not to have any further interventions as he is exhausted from multiple procedures and readmissions to the hospital secondary to his medical health. Will discuss this matter further with our multidisciplinary team. - Will continue Medical support. From a vascular surgery standpoint, the patient would be cleared to undergo further debridements. -End-stage renal disease: At the moment patient has a chest wall catheter that is functioning well. The patient also would require a new arteriovenous fistula creation. However as mentioned above, we will plan to await for any surgical intervention as he is to tired to continue with his current medical health. -Discussed findings, plan and management with the patient. He understands. -Appreciate podiatry input and continue local wound care as recommended. -Optimize vascular status (BP meds, diet, nutrition, exercise, sugar control, antiplatelets). -Thank you for allowing us to partake in the care of your patient. Please call with any questions. Problems: Subjective 24 Hr Interval Summary No new vascular issues overnight Exam/Review of Systems Vital Signs Vitals Vital Signs Date Time Temp Pulse Resp B/P Pulse Ox O2 Delivery O2 Flow Rate FiO2 11/24/16 07:23 98.0 76 20 134/63 96 Intake and Output 11/23/16 11/23/16 11/24/16 15:00 23:00 07:00 Intake Total 500 ml 610 ml 400 ml Output Total 3500 ml 200 ml Balance -3000 ml 610 ml 200 ml Exam Free Text/Dictation GENERAL: Alert, oriented x3. LUNGS: Clear to auscultation bilaterally. HEART: S1, S2 present. ABDOMEN: Soft, nontender, nondistended. Bowel sounds positive. EXTREMITIES: -Left lower extremity, palpable femoral pulse. BkA stump well healed. The capillary refill about 3 seconds. Motor sensory intact. -Right lower extremity, palpable femoral pulse. Palpable graft at the espinal where it inserts into the distal AT. Heel ulcer dry- no surrounding erythema. Right 4th and fifth toe gangrene with purulent drainage. some decreased surrounding erythema Results Result Diagram: 11/24/16 0551 11/24/16 0551 MARTÍNEZ ROSADO MD Nov 24, 2016 09:32
[2016-11-24 13:38] VITALS: BP 136/69; RESP 18
[2016-11-24 19:12] VITALS: BP 142/68; RESP 20
[2016-11-24] MEDS ORDERED: VANCOMYCIN 1 GM in NS 250 ML IVPB SCH (20:00)
[2016-11-24] MEDS: ATORVASTATIN 20 MG TAB PO SCH (20:08)
[2016-11-24] MEDS: TAMSULOSIN (SR) 0.4 MG CAP PO SCH (20:08)
[2016-11-24] MEDS: INSULIN GLARGINE [LANtus] 3 ML PEN SC SCH (20:16)
[2016-11-24] MEDS: HYDROCODONE/APAP (5/325) TAB PO PRN (22:40)
[2016-11-25] VITALS (12 sets, daily range): BP systolic 113–149; BP diastolic 58–78; PULSE 72–80; RESP 20
[2016-11-25] MEDS: ACCU-CHEK XX SCH (01:23)
[2016-11-25] MEDS: ZOLPIDEM 5 MG TAB PO PRN (01:32)
[2016-11-25] MEDS: PIPER-TAZO 2.25 GM (PMX) 50 ML IVPB SCH ×3 (05:35→21:38)
--- NOTE | 2016-11-25 07:48 | CONS ---
Date/Time of Note Date/Time of Note DATE: 11/25/16 TIME: 07:44 Assessment/Plan Assessment/Plan Chief Complaint/Hosp Course 1) R foot infection with cellulitis and probable osteo ESR is elevated but normal WBC recent hx of MRSA on R foot repeat wound cx have been taken podiatry did some debridement today await cx results continue with vanco/zosyn at present pt will likely need R BKA 11/23 - if no surgery is planned than pt will need MRI of R foot to verify that pt has osteo and will need 6 weeks of antibiotics MRSA from wound, to initiate isolation continue vanco/zosyn for at least 2 weeks 11/25 - if pt is deferring further aggressive treatment than an option would be longer term oral antibiotics to try to prevent progression an option would be doxy/augmentin for him the treatment length would be 8-12 weeks and if improvement is actually seen then continued on till ulcers are healed longer term oral antibiotics are an option in pts who are not surgical candidates or who refuse surgery the ESR is decreasing 2) DM 3) ESRD on HD 4) recent R sided CVA 5) CAD Problems: Consultation Date/Type/Reason Admit Date/Time Nov 19, 2016 at 16:56 Initial Consult Date 11/20/16 Type of Consultation: Infectious Diseases 24 HR Interval Summary Free Text/Dictation spoke to nurse pt is not wanting any surgery at this time no new issues otherwise Exam/Review of Systems Vital Signs Vitals Vital Signs Date Time Temp Pulse Resp B/P Pulse Ox O2 Delivery O2 Flow Rate FiO2 11/25/16 02:01 97.6 81 20 140/68 98 Intake and Output 11/24/16 11/24/16 11/25/16 15:00 23:00 07:00 Intake Total 50 ml 650 ml 340 ml Output Total 300 ml Balance 50 ml 350 ml 340 ml Exam Constitutional: other (pt was asleep) Extremities: other (R foot is bandaged, calf is warm but without smell or redness) Results Result Diagram: 11/24/16 0551 11/24/16 0551 Results 24 hrs Laboratory Tests Test 11/24/16 07:55 11/24/16 12:09 11/24/16 17:20 11/24/16 20:12 Bedside Glucose 121 146 145 163 Medications Medications Current Medications Ondansetron HCl (Zofran Inj) 4 mg Q6H PRN IV NAUSEA AND/OR VOMITING; Start at 17:00 Acetaminophen/ Hydrocodone Bitart ([place] (5/325)) 1 tab Q6H PRN PO MODERATE PAIN LEVEL 4-6 Last administered on 11/24/16 22:40; Admin Dose 1 TAB; Start at 17:00 Bisacodyl (Dulcolax) 5 mg DAILY PRN PO CONSTIPATION; Start 11/19/16 at 17:00 Zolpidem Tartrate (Ambien) 5 mg QHS PRN PO SLEEP Last administered on 01:32; Admin Dose 5 MG; Start 11/19/16 at 17:00 Diagnostic Test (Pha) (Accu-Chek) 1 ea 02 XX ; Start 11/20/16 at 02:00 Miscellaneous Information 1 ea NOTE XX ; Start 11/19/16 at 17:30 Glucose (Glutose) 15 gm Q15M PRN PO DECREASED GLUCOSE; Start 11/19/16 at 17:30 Glucose (Glutose) 22.5 gm Q15M PRN PO DECREASED GLUCOSE; Start 11/19/16 at 17: 30 Dextrose (D50w Syringe) 25 ml Q15M PRN IV DECREASED GLUCOSE; Start 11/19/16 at 17:30 Dextrose (D50w Syringe) 50 ml Q15M PRN IV DECREASED GLUCOSE; Start 11/19/16 at 17:30 Glucagon (Glucagen) 1 mg Q15M PRN IM DECREASED GLUCOSE; Start 11/19/16 at 17:30 Glucose (Glutose) 15 gm Q15M PRN BUCCAL DECREASED GLUCOSE; Start 11/19/16 at 17 :30 Acetaminophen (Tylenol Tab) 650 mg Q4 PRN PO PAIN AND OR ELEVATED TEMP; Start 11/19/16 at 19:00 Ascorbic Acid (Vitamin C) 500 mg DAILY PO Last administered on 11/24/16 08:01 ; Admin Dose 500 MG; Start 11/20/16 at 09:00 Atorvastatin Calcium (Lipitor) 20 mg QHS PO Last administered on 11/24/16 20: 08; Admin Dose 20 MG; Start 11/19/16 at 21:00 Bisacodyl (Dulcolax Supp) 10 mg DAILY PRN [place] BM; Start 11/19/16 at 19:00 Calcitriol (Rocaltrol) 0.25 mcg DAILY PO Last administered on 11/24/16 08:01; Admin Dose 0.25 MCG; Start 11/20/16 at 09:00 Loratadine (Claritin) 10 mg DAILY PO Last administered on 11/24/16 08:00; Admin Dose 10 MG; Start 11/20/16 at 09:00 Multivit/Ca Carb/ B Cmplx/FA/Prenat (Sarika-Nahomi) 1 tab DAILY PO Last administered on 11/24/16 08:01; Admin Dose 1 TAB; Start 11/20/16 at 09:00 Multivitamins Therapeutic (Theragran) 1 tab DAILY PO Last administered on 08:01; Admin Dose 1 TAB; Start 11/20/16 at 09:00 Saccharomyces Boulardii (Florastor) 500 mg BID PO Last administered on 20:07; Admin Dose 500 MG; Start 11/19/16 at 21:00 Tamsulosin HCl 0.4 mg 0.4 mg HS PO Last administered on 11/24/16 20:08; Admin Dose 0.4 MG; Start 11/19/16 at 21:00 Piperacillin Sod/ Tazobactam Sod (Zosyn 2.25gm/ 50ml (Pmx)) 50 ml @ 100 mls/hr Q8 IVPB Last administered on 11/25/16 05:35; Admin Dose 100 MLS/HR; Start at 22:00 Epoetin Nito (Epogen (Esrd)) 10,000 units MoWeFr@17 SC Last administered on 17:26; Admin Dose 10,000 UNITS; Start 11/20/16 at 17:00 Insulin Glargine (Lantus) 10 unit QHS SC Last administered on 11/24/16 20:16; Admin Dose 10 UNIT; Start 11/20/16 at 21:00 Apixaban (Eliquis) 2.5 mg BID PO Last administered on 11/24/16 20:08; Admin Dose 2.5 MG; Start 11/20/16 at 21:00 Nitroglycerin (Nitroglycerin (Sl Tab) 0.4 Mg) 1 tab Q5M PRN SL ANGINA; Start at 14:30 Clopidogrel Bisulfate (plaVIX) 75 mg DAILY PO Last administered on 11/24/16 08 :01; Admin Dose 75 MG; Start 11/21/16 at 09:00 Cholecalciferol (Vitamin D) 1,000 unit DAILY PO Last administered on 11/24/16 08:01; Admin Dose 1,000 UNIT; Start 11/21/16 at 09:00 Docusate Sodium 100 mg 100 mg BID PO Last administered on 11/24/16 20:08; Admin Dose 100 MG; Start 11/20/16 at 21:00 Vancomycin HCl (Vancocin) 250 ml @ 125 mls/hr Q96H IVPB Last administered on 20:07; Admin Dose 125 MLS/HR; Start 11/24/16 at 20:00 PEDRO PATRICK MD Nov 25, 2016 07:48
[2016-11-25] MEDS: INSULIN ASPART [NOVOLOG] 3 ML PEN SC SCH ×4 (07:57→20:57)
[2016-11-25] MEDS: CREON (12k-38k-60k) 1 CAP PO SCH ×3 (07:58→17:52)
[2016-11-25] MEDS: APIXABAN 5 MG TABLET PO SCH (07:58)
[2016-11-25] MEDS: CALCIUM ACETATE 667 MG CAP PO SCH ×3 (07:58→17:26)
[2016-11-25] MEDS: CALCITRIOL 0.25 MCG CAP PO SCH (07:58)
[2016-11-25] MEDS: MULTIVIT/CA CARB/B CMPLX/FA TAB PO SCH (07:58)
[2016-11-25] MEDS: ASCORBIC ACID 500 MG TAB PO SCH (07:59)
[2016-11-25] MEDS: MULTIVITAMINS THERAPEUTIC TAB PO SCH (07:59)
[2016-11-25] MEDS: SACCHAROMYCES BOULARDII 250 MG CAP PO SCH ×2 (07:59→20:53)
[2016-11-25] MEDS: CHOLECALCIFEROL 1,000 UNIT TAB PO SCH (07:59)
[2016-11-25] MEDS: LORATADINE 10 MG TAB PO SCH (07:59)
[2016-11-25] MEDS: CLOPIDOGREL 75 MG TAB PO SCH (07:59)
[2016-11-25] MEDS: DOCUSATE SODIUM 100 MG CAP PO SCH ×2 (07:59→20:53)
--- NOTE | 2016-11-25 13:36 | PN ---
Date/Time of Note Date/Time of Note DATE: 11/25/16 TIME: 13:27 Assessment/Plan VTE Prophylaxis VTE Prophylaxis Intervention: other Lines/Catheters IV Catheter Type (from [facility]): permacath Urinary Cath still in place: No Assessment/Plan Chief Complaint/Hosp Course 1. R foot cellulitis , with ischemic , diabetic ulcer . He is being treated with antibiotics and foot debridement by [employer] . He is now growing MRSA from the right foot ulcer. He is on isolation. The patient and I had a discussion about possible surgery. Since the patient does not walk he is considering a transmetatarsal amputation, below the knee amputation, or an above -the-knee amputation of the right leg. We also discussed the possibility of stopping dialysis and what that would mean as far as pain and end of life. We had another discussion about his options . He has decided to have a R AKA . He understands the risks of anesthesia and surgery . I have communicated this with his vascular surgeon , Dr Weber . He will schedule the surgery . 2.ESRD due to diabetic nephropathy , he is dialyzed M . He is having hemodialysis now ... 3. he is being seen by ID , vascular and podiatry 4. 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 Patient has decided on an AKA of R leg . Problems: Subjective 24 Hr Interval Summary Free Text/Dictation He is having his hemodialysis treatment now . Constitutional: no complaints Respiratory: no complaints Gastrointestinal: no complaints Genitourinary: no complaints Psychological: no complaints Exam/Review of Systems Vital Signs Vitals Vital Signs Date Time Temp Pulse Resp B/P Pulse Ox O2 Delivery O2 Flow Rate FiO2 11/25/16 11:45 75 11/25/16 10:45 15 11/25/16 08:06 97.2 136/71 99 Intake and Output 11/24/16 11/24/16 11/25/16 14:59 22:59 06:59 Intake Total 50 ml 650 ml 340 ml Output Total 300 ml Balance 50 ml 350 ml 340 ml Exam R foot ulcer and cellulitis . L BKA . Constitutional: alert, frail, oriented Neck: non-tender, supple Respiratory: clear to auscultation, normal air movement Cardiovascular: regular rate and rhythm Gastrointestinal: soft Results Result Diagram: 11/24/16 0551 11/24/16 0551 Results 24 hrs Laboratory Tests Test 11/24/16 17:20 11/24/16 20:12 11/25/16 07:57 11/25/16 12:14 Bedside Glucose 145 163 126 164 Medications Medications Current Medications Ondansetron HCl (Zofran Inj) 4 mg Q6H PRN IV NAUSEA AND/OR VOMITING; Start at 17:00 Acetaminophen/ Hydrocodone Bitart ([place] (5/325)) 1 tab Q6H PRN PO MODERATE PAIN LEVEL 4-6 Last administered on 11/24/16 22:40; Admin Dose 1 TAB; Start at 17:00 Bisacodyl (Dulcolax) 5 mg DAILY PRN PO CONSTIPATION; Start 11/19/16 at 17:00 Zolpidem Tartrate (Ambien) 5 mg QHS PRN PO SLEEP Last administered on 01:32; Admin Dose 5 MG; Start 11/19/16 at 17:00 Diagnostic Test (Pha) (Accu-Chek) 1 ea 02 XX ; Start 11/20/16 at 02:00 Miscellaneous Information 1 ea NOTE XX ; Start 11/19/16 at 17:30 Glucose (Glutose) 15 gm Q15M PRN PO DECREASED GLUCOSE; Start 11/19/16 at 17:30 Glucose (Glutose) 22.5 gm Q15M PRN PO DECREASED GLUCOSE; Start 11/19/16 at 17: 30 Dextrose (D50w Syringe) 25 ml Q15M PRN IV DECREASED GLUCOSE; Start 11/19/16 at 17:30 Dextrose (D50w Syringe) 50 ml Q15M PRN IV DECREASED GLUCOSE; Start 11/19/16 at 17:30 Glucagon (Glucagen) 1 mg Q15M PRN IM DECREASED GLUCOSE; Start 11/19/16 at 17:30 Glucose (Glutose) 15 gm Q15M PRN BUCCAL DECREASED GLUCOSE; Start 11/19/16 at 17 :30 Acetaminophen (Tylenol Tab) 650 mg Q4 PRN PO PAIN AND OR ELEVATED TEMP; Start 11/19/16 at 19:00 Ascorbic Acid (Vitamin C) 500 mg DAILY PO Last administered on 11/25/16 07:59 ; Admin Dose 500 MG; Start 11/20/16 at 09:00 Atorvastatin Calcium (Lipitor) 20 mg QHS PO Last administered on 11/24/16 20: 08; Admin Dose 20 MG; Start 11/19/16 at 21:00 Bisacodyl (Dulcolax Supp) 10 mg DAILY PRN [place] BM; Start 11/19/16 at 19:00 Calcitriol (Rocaltrol) 0.25 mcg DAILY PO Last administered on 11/25/16 07:58; Admin Dose 0.25 MCG; Start 11/20/16 at 09:00 Loratadine (Claritin) 10 mg DAILY PO Last administered on 11/25/16 07:59; Admin Dose 10 MG; Start 11/20/16 at 09:00 Multivit/Ca Carb/ B Cmplx/FA/Prenat (Sarika-Nahomi) 1 tab DAILY PO Last administered on 11/25/16 07:58; Admin Dose 1 TAB; Start 11/20/16 at 09:00 Multivitamins Therapeutic (Theragran) 1 tab DAILY PO Last administered on 07:59; Admin Dose 1 TAB; Start 11/20/16 at 09:00 Saccharomyces Boulardii (Florastor) 500 mg BID PO Last administered on 07:59; Admin Dose 500 MG; Start 11/19/16 at 21:00 Tamsulosin HCl 0.4 mg 0.4 mg HS PO Last administered on 11/24/16 20:08; Admin Dose 0.4 MG; Start 11/19/16 at 21:00 Piperacillin Sod/ Tazobactam Sod (Zosyn 2.25gm/ 50ml (Pmx)) 50 ml @ 100 mls/hr Q8 IVPB Last administered on 11/25/16 05:35; Admin Dose 100 MLS/HR; Start at 22:00 Epoetin Nito (Epogen (Esrd)) 10,000 units MoWeFr@17 SC Last administered on 17:26; Admin Dose 10,000 UNITS; Start 11/20/16 at 17:00 Insulin Glargine (Lantus) 10 unit QHS SC Last administered on 11/24/16 20:16; Admin Dose 10 UNIT; Start 11/20/16 at 21:00 Apixaban (Eliquis) 2.5 mg BID PO Last administered on 11/25/16 07:58; Admin Dose 2.5 MG; Start 11/20/16 at 21:00 Nitroglycerin (Nitroglycerin (Sl Tab) 0.4 Mg) 1 tab Q5M PRN SL ANGINA; Start at 14:30 Clopidogrel Bisulfate (plaVIX) 75 mg DAILY PO Last administered on 11/25/16 07 :59; Admin Dose 75 MG; Start 11/21/16 at 09:00 Cholecalciferol (Vitamin D) 1,000 unit DAILY PO Last administered on 11/25/16 07:59; Admin Dose 1,000 UNIT; Start 11/21/16 at 09:00 Docusate Sodium 100 mg 100 mg BID PO Last administered on 11/25/16 07:59; Admin Dose 100 MG; Start 11/20/16 at 21:00 Vancomycin HCl (Vancocin) 250 ml @ 125 mls/hr Q96H IVPB Last administered on 20:07; Admin Dose 125 MLS/HR; Start 11/24/16 at 20:00 CELESTE BHATT MD Nov 25, 2016 13:36
[2016-11-25] MEDS: EPOETIN 10000 UNITS/1 ML INJ (ESRD) SC SCH (17:29)
[2016-11-25] MEDS: TAMSULOSIN (SR) 0.4 MG CAP PO SCH (20:53)
[2016-11-25] MEDS: ATORVASTATIN 20 MG TAB PO SCH (20:53)
[2016-11-25] MEDS: INSULIN GLARGINE [LANtus] 3 ML PEN SC SCH (20:54)
[2016-11-25] MEDS: HYDROCODONE/APAP (5/325) TAB PO PRN (23:10)
[2016-11-26] VITALS (18 sets, daily range): BP systolic 110–147; BP diastolic 55–78; PULSE 70–84; RESP 12–20
[2016-11-26] MEDS: ACCU-CHEK XX SCH (02:00)
[2016-11-26] MEDS: PIPER-TAZO 2.25 GM (PMX) 50 ML IVPB SCH ×3 (05:46→21:24)
[2016-11-26] MEDS: CREON (12k-38k-60k) 1 CAP PO SCH ×3 (08:15→18:00)
[2016-11-26] MEDS: CALCIUM ACETATE 667 MG CAP PO SCH ×3 (08:15→18:00)
[2016-11-26] MEDS: INSULIN ASPART [NOVOLOG] 3 ML PEN SC SCH ×4 (08:15→21:00)
[2016-11-26] MEDS: ASCORBIC ACID 500 MG TAB PO SCH (09:00)
[2016-11-26] MEDS: DOCUSATE SODIUM 100 MG CAP PO SCH ×2 (09:00→21:08)
[2016-11-26] MEDS: CHOLECALCIFEROL 1,000 UNIT TAB PO SCH (09:00)
[2016-11-26] MEDS: LORATADINE 10 MG TAB PO SCH (09:00)
[2016-11-26] MEDS: CLOPIDOGREL 75 MG TAB PO SCH (09:00)
[2016-11-26] MEDS: MULTIVITAMINS THERAPEUTIC TAB PO SCH (09:00)
[2016-11-26] MEDS: MULTIVIT/CA CARB/B CMPLX/FA TAB PO SCH (09:00)
[2016-11-26] MEDS: CALCITRIOL 0.25 MCG CAP PO SCH (09:00)
[2016-11-26] MEDS: SACCHAROMYCES BOULARDII 250 MG CAP PO SCH ×2 (09:00→21:08)
--- NOTE | 2016-11-26 09:16 | PN ---
Date/Time of Note Date/Time of Note DATE: 11/26/16 TIME: 09:10 Assessment/Plan VTE Prophylaxis VTE Prophylaxis Intervention: other Lines/Catheters IV [facility] Peripheral IV Urinary Cath still in place: No Assessment/Plan Chief Complaint/Hosp Course 1. R foot cellulitis , with ischemic , diabetic ulcer . He is being treated with antibiotics and foot debridement by [employer] . He is now growing MRSA from the right foot ulcer. He is on isolation. The patient and I had a discussion about possible surgery. We also discussed the possibility of stopping dialysis and what that would mean as far as pain and end of life. We had another discussion about his options . He has decided to have a R AKA . He understands the risks of anesthesia and surgery . I have communicated this with his vascular surgeon , Dr Weber . He will schedule the surgery . 2.ESRD due to diabetic nephropathy , he is dialyzed M W . I will order hemodialysis for tomorrow. 3. he is being seen by ID , vascular and podiatry 4, Patient has decided on an AKA of R leg . Problems: Subjective 24 Hr Interval Summary Free Text/Dictation He is sleeping this morning. He arouses easily and denies any chest pain or shortness of breath. Constitutional: no complaints Cardiovascular: no complaints Gastrointestinal: no complaints Genitourinary: no complaints Musculoskeletal: other Exam/Review of Systems Vital Signs Vitals Vital Signs Date Time Temp Pulse Resp B/P Pulse Ox O2 Delivery O2 Flow Rate FiO2 11/26/16 07:45 97.7 77 18 110/62 96 Intake and Output 11/25/16 11/25/16 11/26/16 15:00 23:00 07:00 Intake Total 500 ml 1250 ml 50 ml Output Total 3500 ml 500 ml Balance -3000 ml 750 ml 50 ml Exam He has a left BKA and the right foot has an ischemic diabetic ulcer and is infected. Constitutional: alert, frail, oriented Neck: non-tender, supple Respiratory: clear to auscultation, normal air movement Cardiovascular: regular rate and rhythm Gastrointestinal: soft Results Result Diagram: 11/24/16 0551 11/24/16 0551 Results 24 hrs Laboratory Tests Test 11/25/16 12:14 11/25/16 17:23 11/25/16 20:49 Bedside Glucose 164 169 171 Medications Medications Current Medications Ondansetron HCl (Zofran Inj) 4 mg Q6H PRN IV NAUSEA AND/OR VOMITING; Start at 17:00 Acetaminophen/ Hydrocodone Bitart ([place] (5/325)) 1 tab Q6H PRN PO MODERATE PAIN LEVEL 4-6 Last administered on 11/25/16 23:10; Admin Dose 1 TAB; Start at 17:00 Bisacodyl (Dulcolax) 5 mg DAILY PRN PO CONSTIPATION; Start 11/19/16 at 17:00 Zolpidem Tartrate (Ambien) 5 mg QHS PRN PO SLEEP Last administered on 01:32; Admin Dose 5 MG; Start 11/19/16 at 17:00 Diagnostic Test (Pha) (Accu-Chek) 1 ea 02 XX ; Start 11/20/16 at 02:00 Miscellaneous Information 1 ea NOTE XX ; Start 11/19/16 at 17:30 Glucose (Glutose) 15 gm Q15M PRN PO DECREASED GLUCOSE; Start 11/19/16 at 17:30 Glucose (Glutose) 22.5 gm Q15M PRN PO DECREASED GLUCOSE; Start 11/19/16 at 17: 30 Dextrose (D50w Syringe) 25 ml Q15M PRN IV DECREASED GLUCOSE; Start 11/19/16 at 17:30 Dextrose (D50w Syringe) 50 ml Q15M PRN IV DECREASED GLUCOSE; Start 11/19/16 at 17:30 Glucagon (Glucagen) 1 mg Q15M PRN IM DECREASED GLUCOSE; Start 11/19/16 at 17:30 Glucose (Glutose) 15 gm Q15M PRN BUCCAL DECREASED GLUCOSE; Start 11/19/16 at 17 :30 Acetaminophen (Tylenol Tab) 650 mg Q4 PRN PO PAIN AND OR ELEVATED TEMP; Start 11/19/16 at 19:00 Ascorbic Acid (Vitamin C) 500 mg DAILY PO Last administered on 11/25/16 07:59 ; Admin Dose 500 MG; Start 11/20/16 at 09:00 Atorvastatin Calcium (Lipitor) 20 mg QHS PO Last administered on 11/25/16 20: 53; Admin Dose 20 MG; Start 11/19/16 at 21:00 Bisacodyl (Dulcolax Supp) 10 mg DAILY PRN [place] BM; Start 11/19/16 at 19:00 Calcitriol (Rocaltrol) 0.25 mcg DAILY PO Last administered on 11/25/16 07:58; Admin Dose 0.25 MCG; Start 11/20/16 at 09:00 Loratadine (Claritin) 10 mg DAILY PO Last administered on 11/25/16 07:59; Admin Dose 10 MG; Start 11/20/16 at 09:00 Multivit/Ca Carb/ B Cmplx/FA/Prenat (Sarika-Nahomi) 1 tab DAILY PO Last administered on 11/25/16 07:58; Admin Dose 1 TAB; Start 11/20/16 at 09:00 Multivitamins Therapeutic (Theragran) 1 tab DAILY PO Last administered on 07:59; Admin Dose 1 TAB; Start 11/20/16 at 09:00 Saccharomyces Boulardii (Florastor) 500 mg BID PO Last administered on 20:53; Admin Dose 500 MG; Start 11/19/16 at 21:00 Tamsulosin HCl 0.4 mg 0.4 mg HS PO Last administered on 11/25/16 20:53; Admin Dose 0.4 MG; Start 11/19/16 at 21:00 Piperacillin Sod/ Tazobactam Sod (Zosyn 2.25gm/ 50ml (Pmx)) 50 ml @ 100 mls/hr Q8 IVPB Last administered on 11/26/16 05:46; Admin Dose 100 MLS/HR; Start at 22:00 Epoetin Nito (Epogen (Esrd)) 10,000 units MoWeFr@17 SC Last administered on 17:29; Admin Dose 10,000 UNITS; Start 11/20/16 at 17:00 Insulin Glargine (Lantus) 10 unit QHS SC Last administered on 11/25/16 20:54; Admin Dose 10 UNIT; Start 11/20/16 at 21:00 Nitroglycerin (Nitroglycerin (Sl Tab) 0.4 Mg) 1 tab Q5M PRN SL ANGINA; Start at 14:30 Clopidogrel Bisulfate (plaVIX) 75 mg DAILY PO Last administered on 11/25/16 07 :59; Admin Dose 75 MG; Start 11/21/16 at 09:00 Cholecalciferol (Vitamin D) 1,000 unit DAILY PO Last administered on 11/25/16 07:59; Admin Dose 1,000 UNIT; Start 11/21/16 at 09:00 Docusate Sodium 100 mg 100 mg BID PO Last administered on 11/25/16 20:53; Admin Dose 100 MG; Start 11/20/16 at 21:00 Vancomycin HCl (Vancocin) 250 ml @ 125 mls/hr Q96H IVPB Last administered on 20:07; Admin Dose 125 MLS/HR; Start 11/24/16 at 20:00 CELESTE BHATT MD Nov 26, 2016 09:16
[2016-11-26 11:06] LABS: BASOPHIL # 0.1 10^3/ul (0.0-0.1); BASOPHILS % 0.8 % (0.0-2.0); EOSINOPHILS # 0.3 10^3/ul (0.0-0.5); EOSINOPHILS % 4.4 % (0.0-7.0); HEMATOCRIT 32.6 % (42.0-52.0); HEMOGLOBIN 10.3 g/dl (14.0-18.0); LYMPHOCYTES # 1.6 10^3/ul (0.8-2.9); LYMPHOCYTES % 20.6 % (15.0-51.0); MEAN CORPUSCULAR HEMOGLOBIN 30.8 pg (29.0-33.0); MEAN CORPUSCULAR HGB CONC 31.6 g/dl (32.0-37.0); MEAN CORPUSCULAR VOLUME 97.6 fl (82.0-101.0); MEAN PLATELET VOLUME 9.8 fl (7.4-10.4); MONOCYTE # 0.7 10^3/ul (0.3-0.9); MONOCYTES % 9.3 % (0.0-11.0); NEUTROPHIL # 4.9 10^3/ul (1.6-7.5); NEUTROPHILS % 64.4 % (39.0-77.0); PLATELET COUNT 187 10^3/UL (140-415); RED BLOOD COUNT 3.34 10^6/ul (4.70-6.10); RED CELL DISTRIBUTION WIDTH 17.8 % (11.5-14.5); WHITE BLOOD COUNT 7.6 10^3/ul (4.8-10.8)
[2016-11-26 11:14] LABS: INR 1.2; PROTIME 15.3 Sec (12.2-14.2); PT RATIO 1.2
[2016-11-26 11:15] LABS: PARTIAL THROMBOPLASTIN TIME 35.2 Sec (25.0-35.0)
[2016-11-26 11:16] LABS: ALBUMIN 2.7 g/dl (3.3-4.9); ALBUMIN/GLOBULIN RATIO 0.87; CALCIUM 8.4 mg/dl (8.4-10.2); CREATININE 4.98 mg/dl (0.61-1.24); POTASSIUM 4.8 mmol/L (3.5-5.1); TOTAL PROTEIN 5.8 g/dl (6.1-8.1)
[2016-11-26] MEDS ORDERED: PIPER-TAZO 3.375 GM IV (PMX) 100 ML ONE (15:15)
[2016-11-26] MEDS ORDERED: ROPIVACAINE 0.2% 20 ML VIAL ONE (15:21)
--- NOTE | 2016-11-26 15:21 | HPN ---
Date/Time of Note Date/Time of Note DATE: 11/26/16 TIME: 15:15 Interval H&P Admission Note Pt. seen H&P reviewed: No system changes had a lengthy discussion with our patient regarding his RLE foot gangrene and osteomyelitis. The patient is tired of wound care, antibiotics and no longer wants to have any further intervention in regards to his wounds. Major amputations were offered BKA-versus AKA . He has chosen above knee amputation as he would like to have >90% wound healing and avoiding possibility of wound complications MARTÍNEZ ROSADO MD Nov 26, 2016 15:21
[2016-11-26] MEDS ORDERED: MIDAZOLAM 1 MG/ML 2 ML INJ ONE ×3 (15:27→16:32)
--- NOTE | 2016-11-26 15:45 | SIPON ---
Date/Time of Note Date/Time of Note DATE: 11/26/16 TIME: 15:44 Operative Report Preoperative Diagnosis RLE GANGRENE Postoperative Diagnosis SAME Operation/Procedure Performed LEFT AKA LIGATION OF RLE VEIN BYPASS Surgeon see signature line records assistant NONE Anesthesia: moderate sedation, other (regional) Estimated blood loss: 10 - 50 ml's Transfusion Required none Specimen RLE EXTREMITY Grafts/Implants none Complications none MARTÍNEZ ROSADO MD Nov 26, 2016 15:45
[2016-11-26] MEDS ORDERED: FENTAnyl 50 MCG/ML VIAL ONE (15:53)
[2016-11-26] MEDS ORDERED: KETAMINE 500 MG INJ ONE (15:56)
[2016-11-26] MEDS ORDERED: LIDOCAINE 1% (MPF) 30 ML INJ ONE (16:00)
[2016-11-26] MEDS ORDERED: THROMBIN 5000 UNIT VIAL ONE (16:10)
--- NOTE | 2016-11-26 16:52 | CONS ---
Date/Time of Note Date/Time of Note DATE: 11/26/16 TIME: 16:47 Assessment/Plan Assessment/Plan Chief Complaint/Hosp Course # Peripheral arterial disease- pt with ble CLI, s/p L BKA R fem-tib bypass. Vascular planning on RLE amputation # Preop CV Exam- pt is at least intermediate cardiac risk for intermediate risk surgery. pt with recent pci to LAD with SYDNI x 1, ORGANIC SEARCH LEAD of LCx non amenable to revasc. Pt without current chest pain, but not active/bedbound. ok to proceed to surgery given recent revasc, unable to modify risk further. would cont plavix, statin periop given recent pci to minimize cardiac risk. ok to hold eliquis and restart post op for afib/stroke prophy. 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 # Orthostatic hypotension. # Anemia of chronic disease. # Moderate aortic stenosis. # Hyperlipidemia controlled. # Type 2 diabetes. # Mild aortic regurgitation on echocardiography. # Benign prostatic hypertrophy >> preop as above >>plavix 75mg po >> apixiban 2.5mg po bid, ok to hold for procedure >> metoprolol for heart rate control ( no further atrial flutter on tele) >> cont statin Problems: Consultation Date/Type/Reason Admit Date/Time Nov 19, 2016 at 16:56 Constitutional: no complaints Eyes: no complaints ENT: no complaints Respiratory: no complaints Cardiovascular: no complaints Gastrointestinal: no complaints Genitourinary: no complaints Musculoskeletal: other Skin: no complaints Neurologic: no complaints Endocrine: no complaints Lymphatic: no complaints Psychological: no complaints Immunologic: no complaints Past Surgical History Past Surgical Hx: no surgical history, angioplasty, endoscopy, other Social History Smoking Status: Never smoker Exam/Review of Systems Vital Signs Vitals Vital Signs Date Time Temp Pulse Resp B/P Pulse Ox O2 Delivery O2 Flow Rate FiO2 11/26/16 12:56 97.7 74 20 137/67 96 Intake and Output 11/25/16 11/25/16 11/26/16 15:00 23:00 07:00 Intake Total 500 ml 1250 ml 50 ml Output Total 3500 ml 500 ml Balance -3000 ml 750 ml 50 ml Results Result Diagram: 11/26/16 1040 11/26/16 1046 Results 24 hrs Laboratory Tests Test 11/25/16 17:23 11/25/16 20:49 11/26/16 09:26 11/26/16 10:40 Bedside Glucose 169 171 135 White Blood Count 7.6 Red Blood Count 3.34 L Hemoglobin 10.3 L Hematocrit 32.6 L Mean Corpuscular Volume 97.6 Mean Corpuscular Hemoglobin 30.8 Mean Corpuscular Hemoglobin Concent 31.6 L Red Cell Distribution Width 17.8 H Platelet Count 187 Mean Platelet Volume 9.8 Neutrophils % 64.4 Lymphocytes % 20.6 Monocytes % 9.3 Eosinophils % 4.4 Basophils % 0.8 Nucleated Red Blood Cells % 0.0 Neutrophils # 4.9 Lymphocytes # 1.6 Monocytes # 0.7 Eosinophils # 0.3 Basophils # 0.1 Nucleated Red Blood Cells # 0.0 Prothrombin Time 15.3 H Prothrombin Time Ratio 1.2 INR International Normalized Ratio 1.20 Activated Partial Thromboplast Time 35.2 H Test 11/26/16 10:46 11/26/16 12:55 Sodium Level 136 Potassium Level 4.8 Chloride Level 102 Carbon Dioxide Level 25 Anion Gap 14 Blood Urea Nitrogen 45 H Creatinine 4.98 H Glucose Level 122 Calcium Level 8.4 Total Bilirubin 0.0 L Direct Bilirubin 0.00 Indirect Bilirubin 0.0 Aspartate Amino Transf (AST/SGOT) 18 Alanine Aminotransferase (ALT/SGPT) 21 Alkaline Phosphatase 98 Total Protein 5.8 L Albumin 2.7 L Globulin 3.10 Albumin/Globulin Ratio 0.87 Bedside Glucose 119 Medications Medications Current Medications Ondansetron HCl (Zofran Inj) 4 mg Q6H PRN IV NAUSEA AND/OR VOMITING; Start at 17:00 Acetaminophen/ Hydrocodone Bitart ([place] (5/325)) 1 tab Q6H PRN PO MODERATE PAIN LEVEL 4-6 Last administered on 11/25/16t 23:10; Admin Dose 1 TAB; Start at 17:00 Bisacodyl (Dulcolax) 5 mg DAILY PRN PO CONSTIPATION; Start 11/19/16 at 17:00 Zolpidem Tartrate (Ambien) 5 mg QHS PRN PO SLEEP Last administered on 01:32; Admin Dose 5 MG; Start 11/19/16 at 17:00 Diagnostic Test (Pha) (Accu-Chek) 1 ea 02 XX ; Start 11/20/16 at 02:00 Miscellaneous Information 1 ea NOTE XX ; Start 11/19/16 at 17:30 Glucose (Glutose) 15 gm Q15M PRN PO DECREASED GLUCOSE; Start 11/19/16 at 17:30 Glucose (Glutose) 22.5 gm Q15M PRN PO DECREASED GLUCOSE; Start 11/19/16 at 17: 30 Dextrose (D50w Syringe) 25 ml Q15M PRN IV DECREASED GLUCOSE; Start 11/19/16 at 17:30 Dextrose (D50w Syringe) 50 ml Q15M PRN IV DECREASED GLUCOSE; Start 11/19/16 at 17:30 Glucagon (Glucagen) 1 mg Q15M PRN IM DECREASED GLUCOSE; Start 11/19/16 at 17:30 Glucose (Glutose) 15 gm Q15M PRN BUCCAL DECREASED GLUCOSE; Start 11/19/16 at 17 :30 Acetaminophen (Tylenol Tab) 650 mg Q4 PRN PO PAIN AND OR ELEVATED TEMP; Start 11/19/16 at 19:00 Ascorbic Acid (Vitamin C) 500 mg DAILY PO Last administered on 11/25/16 07:59 ; Admin Dose 500 MG; Start 11/20/16 at 09:00 Atorvastatin Calcium (Lipitor) 20 mg QHS PO Last administered on 11/25/16 20: 53; Admin Dose 20 MG; Start 11/19/16 at 21:00 Bisacodyl (Dulcolax Supp) 10 mg DAILY PRN [place] BM; Start 11/19/16 at 19:00 Calcitriol (Rocaltrol) 0.25 mcg DAILY PO Last administered on 11/25/16 07:58; Admin Dose 0.25 MCG; Start 11/20/16 at 09:00 Loratadine (Claritin) 10 mg DAILY PO Last administered on 11/25/16 07:59; Admin Dose 10 MG; Start 11/20/16 at 09:00 Multivit/Ca Carb/ B Cmplx/FA/Prenat (Sarika-Nahomi) 1 tab DAILY PO Last administered on 11/25/16 07:58; Admin Dose 1 TAB; Start 11/20/16 at 09:00 Multivitamins Therapeutic (Theragran) 1 tab DAILY PO Last administered on 07:59; Admin Dose 1 TAB; Start 11/20/16 at 09:00 Saccharomyces Boulardii (Florastor) 500 mg BID PO Last administered on 20:53; Admin Dose 500 MG; Start 11/19/16 at 21:00 Tamsulosin HCl 0.4 mg 0.4 mg HS PO Last administered on 11/25/16 20:53; Admin Dose 0.4 MG; Start 11/19/16 at 21:00 Piperacillin Sod/ Tazobactam Sod (Zosyn 2.25gm/ 50ml (Pmx)) 50 ml @ 100 mls/hr Q8 IVPB Last administered on 11/26/16 05:46; Admin Dose 100 MLS/HR; Start at 22:00 Epoetin Nito (Epogen (Esrd)) 10,000 units MoWeFr@17 SC Last administered on 17:29; Admin Dose 10,000 UNITS; Start 11/20/16 at 17:00 Insulin Glargine (Lantus) 10 unit QHS SC Last administered on 11/25/16 20:54; Admin Dose 10 UNIT; Start 11/20/16 at 21:00 Nitroglycerin (Nitroglycerin (Sl Tab) 0.4 Mg) 1 tab Q5M PRN SL ANGINA; Start at 14:30 Clopidogrel Bisulfate (plaVIX) 75 mg DAILY PO Last administered on 11/25/16 07 :59; Admin Dose 75 MG; Start 11/21/16 at 09:00 Cholecalciferol (Vitamin D) 1,000 unit DAILY PO Last administered on 11/25/16 07:59; Admin Dose 1,000 UNIT; Start 11/21/16 at 09:00 Docusate Sodium 100 mg 100 mg BID PO Last administered on 11/25/16 20:53; Admin Dose 100 MG; Start 11/20/16 at 21:00 Vancomycin HCl (Vancocin) 250 ml @ 125 mls/hr Q96H IVPB Last administered on 20:07; Admin Dose 125 MLS/HR; Start 11/24/16 at 20:00 AMY PEREZ Nov 26, 2016 16:52
[2016-11-26] MEDS ORDERED: METOCLOPRAMIDE 10 MG INJ IV PRN (17:30)
[2016-11-26] MEDS ORDERED: ONDANSETRON 4 MG INJ IV PRN (17:30)
[2016-11-26] MEDS ORDERED: hydrALAzine 20 MG INJ IV PRN (17:30)
[2016-11-26] MEDS ORDERED: MIDAZOLAM 1 MG/ML 2 ML INJ IV PRN (17:30)
[2016-11-26] MEDS ORDERED: LABETALOL HCL 20MG INJ IV PRN (17:30)
[2016-11-26] MEDS ORDERED: FENTAnyl 50 MCG/ML VIAL IV PRN ×3 (17:30)
[2016-11-26] MEDS ORDERED: DIPHENHYDRAMINE 50 MG INJ IV PRN (17:30)
[2016-11-26] MEDS ORDERED: MEPERIDINE 25 MG INJ IV PRN (17:30)
[2016-11-26] MEDS ORDERED: OXYCODONE/ACETAMINOPHEN (5/325) TAB PO PRN ×2 (17:30)
[2016-11-26] MEDS ORDERED: EPHEDrine SULFATE 50 MG/5 ML SYG IV PRN (17:30)
--- NOTE | 2016-11-26 19:43 | RADRPT ---
Echocardiogram Report Patient Name: ARPITA ALVARENGA Gender: Male Date: 1945 Study Date: 26-Nov-2016 Surgical Orderly: [facility] Location: [address] Ref. Physician: TIM PEREZ Quality: Adequate Procedures: Transthoracic echocardiogram with complete 2D, M-Mode, and doppler examination. Indications: Pre-op. 2D/M Mode Doppler Measurement Value Normal Ranges Measurement Value Normal Ranges LVIDd 2D 5.4 3.5 - 5.6 cm AV Peak Rui 1.1 m/sec LVIDs 2D 4.9 2.1 - 4.1 cm AV Peak PG 5.1 mmHg LVPWd 2D 1.3 0.6 - 1.1 cm AI Peak PG 18.2 mmHg IVSd 2D 1.2 0.6 - 1.1 cm AI Peak Rui 2.1 m/sec AoR Diam 2D 2.4 2.0 - 3.7 cm AI PHT 519.3 msec EDV 2D 143.1 cm3 LVOT Peak Rui 0.5 m/sec ESV 2D 119.1 cm3 LVOT Peak PG 1.0 mmHg MV E Peak Rui 1.1 m/sec MV A Peak Rui 0.5 m/sec MV E/A 2.1 MV Decel Time 145 msec MV Decel [place] 8 MV E/A 2.1 TR Peak Rui 2.4 m/sec TR Peak PG 22.9 mmHg RVSP 26.0 mmHg Findings Left Ventricle: Mild concentric left ventricular hypertrophy. Mild enlargement of left ventricle cavity. Moderate global left ventricular systolic dysfunction. Ejection fraction is visually estimated at 40 %. Tissue Doppler/Mitral Doppler indices are consistent with restrictive physiology with markedly elevated left atrial pressure (Stage IIIIV diastolic dysfunction). These segments of the LV are hypokinetic anteroseptum mid segment and apical septum. These segments of the LV are akinetic inferior base segment, inferior mid segment, Apical inferior segment and inferolateral base segment. Right Ventricle: Normal right ventricular systolic function. Mild enlargement of right ventricle. Left Atrium: There is mild enlargement of left atrium. Right Atrium: The right atrium is normal in size. Mitral Valve: Mitral valve leaflets appear mildly thickened. Mild mitral annular calcification. Moderate mitral valve regurgitation. Aortic Valve: Aortic sclerosis without stenosis. Trileaflet aortic valve. Mild aortic valve regurgitation. Tricuspid Valve: Normal appearance of the tricuspid valve. Normal right ventricular systolic pressure. Estimated peak PA systolic pressure 26 mmHg. There is mild tricuspid regurgitation. Pulmonic Valve: Pulmonic valve not well visualized. There is mild to moderate pulmonic regurgitation. Pericardium: Normal pericardium with no significant pericardial effusion. Aorta: Normal aortic root. IVC: Normal size and normal respiratory collapse consistent with normal right atrial pressure. Conclusions Mild concentric left ventricular hypertrophy. Mild enlargement of left ventricle cavity. Moderate global left ventricular systolic dysfunction. Ejection fraction is visually estimated at 40 %. Tissue Doppler/Mitral Doppler indices are consistent with restrictive physiology with markedly elevated left atrial pressure (Stage III-IV diastolic dysfunction). These segments of the LV are hypokinetic anteroseptum mid segment and apical septum.. These segments of the LV are akinetic inferior base segment, inferior mid segment, Apical inferior segment. and inferolateral base segment. Normal right ventricular systolic function. Mild enlargement of right ventricle. There is mild enlargement of left atrium. Mitral valve leaflets appear mildly thickened. Mild mitral annular calcification. Moderate mitral valve regurgitation. Aortic sclerosis without stenosis. Trileaflet aortic valve. Mild aortic valve regurgitation. Normal appearance of the tricuspid valve. Normal right ventricular systolic pressure. Estimated peak PA systolic pressure 26 mmHg. There is mild tricuspid regurgitation. Normal pericardium with no significant pericardial effusion. Normal size and normal respiratory collapse consistent with normal right atrial pressure. No Vegetation, masses, or thrombi seen. Electronically Signed By: Tim Perez 26-Nov-2016 19:42:57 -0700 Patient Name: ARPITA ALVARENGA Study Date: 26-Nov-2016 [id number]
[2016-11-26] MEDS: TAMSULOSIN (SR) 0.4 MG CAP PO SCH (21:08)
[2016-11-26] MEDS: INSULIN GLARGINE [LANtus] 3 ML PEN SC SCH (21:08)
[2016-11-26] MEDS: ATORVASTATIN 20 MG TAB PO SCH (21:08)
[2016-11-26] MEDS: NACL 0.9% 3 ML SYG IV SCH (21:20)
[2016-11-26] MEDS: HYDROCODONE/APAP (5/325) TAB PO PRN (21:54)
[2016-11-26] MEDS: morphine 4 MG/ML VIAL IV PRN (23:26)
[2016-11-27] VITALS (12 sets, daily range): BP systolic 104–150; BP diastolic 59–77; PULSE 73–79; RESP 16–20
[2016-11-27] MEDS: ZOLPIDEM 5 MG TAB PO PRN ×2 (00:19→20:53)
[2016-11-27] MEDS: ACCU-CHEK XX SCH (02:00)
[2016-11-27] MEDS: NACL 0.9% 3 ML SYG IV SCH ×2 (05:38→20:45)
[2016-11-27] MEDS: PIPER-TAZO 2.25 GM (PMX) 50 ML IVPB SCH (05:39)
[2016-11-27] MEDS: morphine 4 MG/ML VIAL IV PRN ×5 (05:41→22:24)
[2016-11-27] MEDS: INSULIN ASPART [NOVOLOG] 3 ML PEN SC SCH ×4 (08:15→20:52)
[2016-11-27] MEDS: CREON (12k-38k-60k) 1 CAP PO SCH ×3 (08:54→18:59)
[2016-11-27] MEDS: HYDROCODONE/APAP (5/325) TAB PO PRN ×2 (08:54→19:50)
[2016-11-27] MEDS: CALCIUM ACETATE 667 MG CAP PO SCH ×3 (08:54→18:07)
[2016-11-27] MEDS: CLOPIDOGREL 75 MG TAB PO SCH ×2 (09:00→12:46)
[2016-11-27] MEDS: MULTIVIT/CA CARB/B CMPLX/FA TAB PO SCH (09:00)
[2016-11-27] MEDS: DOCUSATE SODIUM 100 MG CAP PO SCH ×2 (09:00→20:47)
[2016-11-27] MEDS: CHOLECALCIFEROL 1,000 UNIT TAB PO SCH (09:00)
[2016-11-27] MEDS: SACCHAROMYCES BOULARDII 250 MG CAP PO SCH ×2 (09:00→20:47)
[2016-11-27] MEDS: MULTIVITAMINS THERAPEUTIC TAB PO SCH (09:00)
[2016-11-27] MEDS: LORATADINE 10 MG TAB PO SCH (09:00)
[2016-11-27] MEDS: CALCITRIOL 0.25 MCG CAP PO SCH (09:00)
[2016-11-27] MEDS: ASCORBIC ACID 500 MG TAB PO SCH (09:00)
--- NOTE | 2016-11-27 10:04 | CONS ---
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 repeat wound cx have been taken podiatry did some debridement today await cx results continue with vanco/zosyn at present pt will likely need R BKA 11/23 - if no surgery is planned than pt will need MRI of R foot to verify that pt has osteo and will need 6 weeks of antibiotics MRSA from wound, to initiate isolation continue vanco/zosyn for at least 2 weeks 11/25 - if pt is deferring further aggressive treatment than an option would be longer term oral antibiotics to try to prevent progression an option would be doxy/augmentin for him the treatment length would be 8-12 weeks and if improvement is actually seen then continued on till ulcers are healed longer term oral antibiotics are an option in pts who are not surgical candidates or who refuse surgery the ESR is decreasing 11/27 - site of infection was removed with his R AKA surgery d/c antibiotics 2) DM 3) ESRD on HD 4) recent R sided CVA 5) CAD Problems: Consultation Date/Type/Reason Admit Date/Time Nov 19, 2016 at 16:56 Initial Consult Date 11/20/16 Type of Consultation: Infectious Diseases 24 HR Interval Summary Free Text/Dictation pt got surgery yesterday for R AKA pt has pain to surgical site no N, V, D Exam/Review of Systems Vital Signs Vitals Vital Signs Date Time Temp Pulse Resp B/P Pulse Ox O2 Delivery O2 Flow Rate FiO2 11/27/16 09:28 77 11/27/16 08:35 14 11/27/16 07:35 97.4 150/70 97 11/26/16 21:50 Room Air 11/26/16 21:45 1.0 Intake and Output 11/26/16 11/26/16 11/27/16 15:00 23:00 07:00 Intake Total 50 ml 770 ml Output Total 200 ml 125 ml Balance -200 ml -75 ml 770 ml Exam Constitutional: alert Respiratory: clear to auscultation Cardiovascular: regular rate and rhythm Gastrointestinal: non-tender, soft Results Result Diagram: 11/26/16 1040 11/26/16 1046 Results 24 hrs Laboratory Tests Test 11/26/16 10:40 11/26/16 10:46 11/26/16 12:55 11/26/16 17:28 White Blood Count 7.6 Red Blood Count 3.34 L Hemoglobin 10.3 L Hematocrit 32.6 L Mean Corpuscular Volume 97.6 Mean Corpuscular Hemoglobin 30.8 Mean Corpuscular Hemoglobin Concent 31.6 L Red Cell Distribution Width 17.8 H Platelet Count 187 Mean Platelet Volume 9.8 Neutrophils % 64.4 Lymphocytes % 20.6 Monocytes % 9.3 Eosinophils % 4.4 Basophils % 0.8 Nucleated Red Blood Cells % 0.0 Neutrophils # 4.9 Lymphocytes # 1.6 Monocytes # 0.7 Eosinophils # 0.3 Basophils # 0.1 Nucleated Red Blood Cells # 0.0 Prothrombin Time 15.3 H Prothrombin Time Ratio 1.2 INR International Normalized Ratio 1.20 Activated Partial Thromboplast Time 35.2 H Sodium Level 136 Potassium Level 4.8 Chloride Level 102 Carbon Dioxide Level 25 Anion Gap 14 Blood Urea Nitrogen 45 H Creatinine 4.98 H Glucose Level 122 Calcium Level 8.4 Total Bilirubin 0.0 L Direct Bilirubin 0.00 Indirect Bilirubin 0.0 Aspartate Amino Transf (AST/SGOT) 18 Alanine Aminotransferase (ALT/SGPT) 21 Alkaline Phosphatase 98 Total Protein 5.8 L Albumin 2.7 L Globulin 3.10 Albumin/Globulin Ratio 0.87 Bedside Glucose 119 100 Test 11/26/16 20:53 11/27/16 05:43 11/27/16 09:42 Bedside Glucose 118 92 Lab Scanned Report BLOOD TRANSFUSION Medications Medications Current Medications Ondansetron HCl (Zofran Inj) 4 mg Q6H PRN IV NAUSEA AND/OR VOMITING; Start at 17:00 Acetaminophen/ Hydrocodone Bitart ([place] (5/325)) 1 tab Q6H PRN PO MODERATE PAIN LEVEL 4-6 Last administered on 11/27/16 08:54; Admin Dose 1 TAB; Start at 17:00 Bisacodyl (Dulcolax) 5 mg DAILY PRN PO CONSTIPATION; Start 11/19/16 at 17:00 Zolpidem Tartrate (Ambien) 5 mg QHS PRN PO SLEEP Last administered on 00:19; Admin Dose 5 MG; Start 11/19/16 at 17:00 Diagnostic Test (Pha) (Accu-Chek) 1 ea 02 XX ; Start 11/20/16 at 02:00 Miscellaneous Information 1 ea NOTE XX ; Start 11/19/16 at 17:30 Glucose (Glutose) 15 gm Q15M PRN PO DECREASED GLUCOSE; Start 11/19/16 at 17:30 Glucose (Glutose) 22.5 gm Q15M PRN PO DECREASED GLUCOSE; Start 11/19/16 at 17: 30 Dextrose (D50w Syringe) 25 ml Q15M PRN IV DECREASED GLUCOSE; Start 11/19/16 at 17:30 Dextrose (D50w Syringe) 50 ml Q15M PRN IV DECREASED GLUCOSE; Start 11/19/16 at 17:30 Glucagon (Glucagen) 1 mg Q15M PRN IM DECREASED GLUCOSE; Start 11/19/16 at 17:30 Glucose (Glutose) 15 gm Q15M PRN BUCCAL DECREASED GLUCOSE; Start 11/19/16 at 17 :30 Acetaminophen (Tylenol Tab) 650 mg Q4 PRN PO PAIN AND OR ELEVATED TEMP; Start 11/19/16 at 19:00 Ascorbic Acid (Vitamin C) 500 mg DAILY PO Last administered on 11/25/16 07:59 ; Admin Dose 500 MG; Start 11/20/16 at 09:00 Atorvastatin Calcium (Lipitor) 20 mg QHS PO Last administered on 11/26/16 21: 08; Admin Dose 20 MG; Start 11/19/16 at 21:00 Bisacodyl (Dulcolax Supp) 10 mg DAILY PRN NC BM; Start 11/19/16 at 19:00 Calcitriol (Rocaltrol) 0.25 mcg DAILY PO Last administered on 11/25/16 07:58; Admin Dose 0.25 MCG; Start 11/20/16 at 09:00 Loratadine (Claritin) 10 mg DAILY PO Last administered on 11/25/16 07:59; Admin Dose 10 MG; Start 11/20/16 at 09:00 Multivit/Ca Carb/ B Cmplx/FA/Prenat (Sarika-Nahomi) 1 tab DAILY PO Last administered on 11/25/16 07:58; Admin Dose 1 TAB; Start 11/20/16 at 09:00 Multivitamins Therapeutic (Theragran) 1 tab DAILY PO Last administered on 07:59; Admin Dose 1 TAB; Start 11/20/16 at 09:00 Saccharomyces Boulardii (Florastor) 500 mg BID PO Last administered on 21:08; Admin Dose 500 MG; Start 11/19/16 at 21:00 Tamsulosin HCl 0.4 mg 0.4 mg HS PO Last administered on 11/26/16 21:08; Admin Dose 0.4 MG; Start 11/19/16 at 21:00 Piperacillin Sod/ Tazobactam Sod (Zosyn 2.25gm/ 50ml (Pmx)) 50 ml @ 100 mls/hr Q8 IVPB Last administered on 11/27/16 05:39; Admin Dose 100 MLS/HR; Start at 22:00 Epoetin Nito (Epogen (Esrd)) 10,000 units MoWeFr@17 SC Last administered on 17:29; Admin Dose 10,000 UNITS; Start 11/20/16 at 17:00 Insulin Glargine (Lantus) 10 unit QHS SC Last administered on 11/26/16 21:08; Admin Dose 10 UNIT; Start 11/20/16 at 21:00 Nitroglycerin (Nitroglycerin (Sl Tab) 0.4 Mg) 1 tab Q5M PRN SL ANGINA; Start at 14:30 Clopidogrel Bisulfate (plaVIX) 75 mg DAILY PO Last administered on 11/25/16 07 :59; Admin Dose 75 MG; Start 11/21/16 at 09:00 Cholecalciferol (Vitamin D) 1,000 unit DAILY PO Last administered on 11/25/16 07:59; Admin Dose 1,000 UNIT; Start 11/21/16 at 09:00 Docusate Sodium 100 mg 100 mg BID PO Last administered on 11/26/16 21:08; Admin Dose 100 MG; Start 11/20/16 at 21:00 Vancomycin HCl (Vancocin) 250 ml @ 125 mls/hr Q96H IVPB Last administered on 20:07; Admin Dose 125 MLS/HR; Start 11/24/16 at 20:00 Morphine Sulfate (morphine) 4 mg Q4H PRN IV PAIN Last administered on 9/22/ 17at 05:41; Admin Dose 4 MG; Start 11/26/16 at 23:30 PEDOR PATRICK MD Nov 27, 2016 10:04
--- NOTE | 2016-11-27 11:20 | PN ---
Date/Time of Note Date/Time of Note DATE: 11/27/16 TIME: 11:11 Assessment/Plan VTE Prophylaxis VTE Prophylaxis Intervention: contraindicated VTE Contraindication Reason: amputee, bleeding Lines/Catheters IV Catheter Type (from Nrs): Central Line Central line still needed: No Urinary Cath still in place: No Assessment/Plan Chief Complaint/Hosp Course 1. R foot cellulitis , with ischemic , diabetic ulcer . He is 1 day post op a R AKA . He is having pain in the leg . Off antibiotics . 2. ESRD due to diabetic nephropathy , he is dialyzed [facility] . He is having hemodialysis now . 3. he is being seen by ID , vascular and podiatry 4. DM 5. HTN 6. h/o severe postural hypotension 7. CAD 8. CVA Problems: Subjective 24 Hr Interval Summary Free Text/Dictation patient is now 1 day post op a R AKA . He is having intermittent R thigh pain . He is now having hemodialysis treatment . Constitutional: poor po Eyes: no complaints ENT: no complaints Cardiovascular: no complaints Gastrointestinal: no complaints Genitourinary: no complaints Musculoskeletal: no complaints Neurologic: focal-weakness Exam/Review of Systems Vital Signs Vitals Vital Signs Date Time Temp Pulse Resp B/P Pulse Ox O2 Delivery O2 Flow Rate FiO2 11/27/16 10:25 74 11/27/16 08:35 14 11/27/16 07:35 97.4 150/70 97 11/26/16 21:50 Room Air 11/26/16 21:45 1.0 Intake and Output 11/26/16 11/26/16 11/27/16 15:00 23:00 07:00 Intake Total 50 ml 770 ml Output Total 200 ml 125 ml Balance -200 ml -75 ml 770 ml Exam he has a L BKA and a R AKA . Constitutional: alert, frail, oriented Respiratory: clear to auscultation, normal air movement Cardiovascular: regular rate and rhythm Gastrointestinal: non-tender, soft Results Result Diagram: 11/26/16 1040 11/26/16 1046 Results 24 hrs Laboratory Tests Test 11/26/16 12:55 11/26/16 17:28 11/26/16 20:53 11/27/16 05:43 Bedside Glucose 119 100 118 Lab Scanned Report BLOOD TRANSFUSION Test 11/27/16 08:57 11/27/16 09:42 Bedside Glucose 62 L 92 Medications Medications Current Medications Ondansetron HCl (Zofran Inj) 4 mg Q6H PRN IV NAUSEA AND/OR VOMITING; Start at 17:00 Acetaminophen/ Hydrocodone Bitart ([place] (5/325)) 1 tab Q6H PRN PO MODERATE PAIN LEVEL 4-6 Last administered on 11/27/16 08:54; Admin Dose 1 TAB; Start at 17:00 Bisacodyl (Dulcolax) 5 mg DAILY PRN PO CONSTIPATION; Start 11/19/16 at 17:00 Zolpidem Tartrate (Ambien) 5 mg QHS PRN PO SLEEP Last administered on 00:19; Admin Dose 5 MG; Start 11/19/16 at 17:00 Diagnostic Test (Pha) (Accu-Chek) 1 ea 02 XX ; Start 11/20/16 at 02:00 Miscellaneous Information 1 ea NOTE XX ; Start 11/19/16 at 17:30 Glucose (Glutose) 15 gm Q15M PRN PO DECREASED GLUCOSE; Start 11/19/16 at 17:30 Glucose (Glutose) 22.5 gm Q15M PRN PO DECREASED GLUCOSE; Start 11/19/16 at 17: 30 Dextrose (D50w Syringe) 25 ml Q15M PRN IV DECREASED GLUCOSE; Start 11/19/16 at 17:30 Dextrose (D50w Syringe) 50 ml Q15M PRN IV DECREASED GLUCOSE; Start 11/19/16 at 17:30 Glucagon (Glucagen) 1 mg Q15M PRN IM DECREASED GLUCOSE; Start 11/19/16 at 17:30 Glucose (Glutose) 15 gm Q15M PRN BUCCAL DECREASED GLUCOSE; Start 11/19/16 at 17 :30 Acetaminophen (Tylenol Tab) 650 mg Q4 PRN PO PAIN AND OR ELEVATED TEMP; Start 11/19/16 at 19:00 Ascorbic Acid (Vitamin C) 500 mg DAILY PO Last administered on 11/25/16 07:59 ; Admin Dose 500 MG; Start 11/20/16 at 09:00 Atorvastatin Calcium (Lipitor) 20 mg QHS PO Last administered on 11/26/16 21: 08; Admin Dose 20 MG; Start 11/19/16 at 21:00 Bisacodyl (Dulcolax Supp) 10 mg DAILY PRN [place] BM; Start 11/19/16 at 19:00 Calcitriol (Rocaltrol) 0.25 mcg DAILY PO Last administered on 11/25/16 07:58; Admin Dose 0.25 MCG; Start 11/20/16 at 09:00 Loratadine (Claritin) 10 mg DAILY PO Last administered on 11/25/16 07:59; Admin Dose 10 MG; Start 11/20/16 at 09:00 Multivit/Ca Carb/ B Cmplx/FA/Prenat (Sarika-Nahomi) 1 tab DAILY PO Last administered on 11/25/16 07:58; Admin Dose 1 TAB; Start 11/20/16 at 09:00 Multivitamins Therapeutic (Theragran) 1 tab DAILY PO Last administered on 07:59; Admin Dose 1 TAB; Start 11/20/16 at 09:00 Saccharomyces Boulardii (Florastor) 500 mg BID PO Last administered on 21:08; Admin Dose 500 MG; Start 11/19/16 at 21:00 Tamsulosin HCl (Flomax) 0.4 mg HS PO Last administered on 11/26/16 21:08; Admin Dose 0.4 MG; Start 11/19/16 at 21:00 Epoetin Nito (Epogen (Esrd)) 10,000 units MoWeFr@17 SC Last administered on 17:29; Admin Dose 10,000 UNITS; Start 11/20/16 at 17:00 Nitroglycerin (Nitroglycerin (Sl Tab) 0.4 Mg) 1 tab Q5M PRN SL ANGINA; Start at 14:30 Clopidogrel Bisulfate (plaVIX) 75 mg DAILY PO Last administered on 11/25/16 07 :59; Admin Dose 75 MG; Start 11/21/16 at 09:00 Cholecalciferol (Vitamin D) 1,000 unit DAILY PO Last administered on 11/25/16 07:59; Admin Dose 1,000 UNIT; Start 11/21/16 at 09:00 Docusate Sodium (Colace) 100 mg BID PO Last administered on 11/26/16 21:08; Admin Dose 100 MG; Start 11/20/16 at 21:00 Morphine Sulfate (morphine) 4 mg Q3 PRN IV PAIN; Start 11/27/16 at 12:00; Status UNV CELESTE BHATT MD Nov 27, 2016 11:20
[2016-11-27] MEDS ORDERED: morphine 2 MG INJ IV ONE (11:30)
[2016-11-27 12:24] LABS: BASOPHIL # 0.1 10^3/ul (0.0-0.1); BASOPHILS % 0.6 % (0.0-2.0); EOSINOPHILS # 0.2 10^3/ul (0.0-0.5); EOSINOPHILS % 2.4 % (0.0-7.0); HEMATOCRIT 33.1 % (42.0-52.0); HEMOGLOBIN 10.8 g/dl (14.0-18.0); LYMPHOCYTES # 0.7 10^3/ul (0.8-2.9); LYMPHOCYTES % 7.5 % (15.0-51.0); MEAN CORPUSCULAR HEMOGLOBIN 31.1 pg (29.0-33.0); MEAN CORPUSCULAR HGB CONC 32.6 g/dl (32.0-37.0); MEAN CORPUSCULAR VOLUME 95.4 fl (82.0-101.0); MEAN PLATELET VOLUME 9.2 fl (7.4-10.4); MONOCYTE # 0.8 10^3/ul (0.3-0.9); MONOCYTES % 8.1 % (0.0-11.0); NEUTROPHIL # 7.8 10^3/ul (1.6-7.5); PLATELET COUNT 154 10^3/UL (140-415); RED BLOOD COUNT 3.47 10^6/ul (4.70-6.10); RED CELL DISTRIBUTION WIDTH 19.3 % (11.5-14.5); WHITE BLOOD COUNT 9.6 10^3/ul (4.8-10.8)
--- NOTE | 2016-11-27 16:46 | CONS ---
Date/Time of Note Date/Time of Note DATE: 11/27/16 TIME: 16:38 Assessment/Plan Assessment/Plan Chief Complaint/Hosp Course # Peripheral arterial disease- pt with ble CLI, s/p L BKA. now s/p R AKA # Ischemic CM- stable on repeat echo, LVEF 40% with wma. 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 # Orthostatic hypotension. # Anemia of chronic disease. # Moderate aortic stenosis. # Hyperlipidemia controlled. # Type 2 diabetes. # Mild aortic regurgitation on echocardiography. # Benign prostatic hypertrophy >> if bp stable may consider low dose metop xl given ICM and PAFlutter. >> cont plavix 75mg po >> restart apixiban >> cont statin Problems: Consultation Date/Type/Reason Admit Date/Time Nov 19, 2016 at 16:56 Initial Consult Date 11/20/16 Type of Consultation: Cardiology Reason for Consultation CAD, Cardiomyopathy, Preop CV exam Referring Provider: CELESTE BHATT MD 24 HR Interval Summary Free Text/Dictation doing well, s/p RLE amputation. pt states having muscle spasm/tightness in RLE. no cp/sob. slight dizziness with sitting up. no palpitations, pnd, orthopnea Detailed Summary Respiratory: no complaints Cardiovascular: no complaints Gastrointestinal: no complaints Musculoskeletal: bone/joint pain Exam/Review of Systems Vital Signs Vitals Vital Signs Date Time Temp Pulse Resp B/P Pulse Ox O2 Delivery O2 Flow Rate FiO2 11/27/16 13:27 97.9 75 16 137/63 95 11/26/16 21:50 Room Air 11/26/16 21:45 1.0 Intake and Output 11/26/16 11/26/16 11/27/16 15:00 23:00 07:00 Intake Total 50 ml 770 ml Output Total 200 ml 125 ml Balance -200 ml -75 ml 770 ml Exam Constitutional: alert, oriented NAD Neck: supple, 2+ carotids Respiratory: clear to auscultation, normal air movement Cardiovascular: regular rate and rhythm, ii/vi alejandro Gastrointestinal: soft Neurological: focal weakness MSK: RLE s/p AKA, dressing in place. Left leg status post below the knee amputation, Results Result Diagram: 11/27/16 1210 11/26/16 1046 Results 24 hrs Laboratory Tests Test 11/26/16 17:28 11/26/16 20:53 11/27/16 05:43 11/27/16 08:57 Bedside Glucose 100 118 62 L Lab Scanned Report BLOOD TRANSFUSION Test 11/27/16 09:42 11/27/16 11:37 11/27/16 12:10 Bedside Glucose 92 122 White Blood Count 9.6 # Red Blood Count 3.47 L Hemoglobin 10.8 L Hematocrit 33.1 L Mean Corpuscular Volume 95.4 Mean Corpuscular Hemoglobin 31.1 Mean Corpuscular Hemoglobin Concent 32.6 Red Cell Distribution Width 19.3 H Platelet Count 154 Mean Platelet Volume 9.2 Neutrophils % 81.0 H Lymphocytes % 7.5 L Monocytes % 8.1 Eosinophils % 2.4 Basophils % 0.6 Nucleated Red Blood Cells % 0.0 Neutrophils # 7.8 H Lymphocytes # 0.7 L Monocytes # 0.8 Eosinophils # 0.2 Basophils # 0.1 Nucleated Red Blood Cells # 0.0 Medications Medications Current Medications Ondansetron HCl (Zofran Inj) 4 mg Q6H PRN IV NAUSEA AND/OR VOMITING; Start at 17:00 Acetaminophen/ Hydrocodone Bitart ([place] (5/325)) 1 tab Q6H PRN PO MODERATE PAIN LEVEL 4-6 Last administered on 11/27/16 08:54; Admin Dose 1 TAB; Start at 17:00 Bisacodyl (Dulcolax) 5 mg DAILY PRN PO CONSTIPATION; Start 11/19/16 at 17:00 Zolpidem Tartrate (Ambien) 5 mg QHS PRN PO SLEEP Last administered on 00:19; Admin Dose 5 MG; Start 11/19/16 at 17:00 Diagnostic Test (Pha) (Accu-Chek) 1 ea 02 XX ; Start 11/20/16 at 02:00 Miscellaneous Information 1 ea NOTE XX ; Start 11/19/16 at 17:30 Glucose (Glutose) 15 gm Q15M PRN PO DECREASED GLUCOSE; Start 11/19/16 at 17:30 Glucose (Glutose) 22.5 gm Q15M PRN PO DECREASED GLUCOSE; Start 11/19/16 at 17: 30 Dextrose (D50w Syringe) 25 ml Q15M PRN IV DECREASED GLUCOSE; Start 11/19/16 at 17:30 Dextrose (D50w Syringe) 50 ml Q15M PRN IV DECREASED GLUCOSE; Start 11/19/16 at 17:30 Glucagon (Glucagen) 1 mg Q15M PRN IM DECREASED GLUCOSE; Start 11/19/16 at 17:30 Glucose (Glutose) 15 gm Q15M PRN BUCCAL DECREASED GLUCOSE; Start 11/19/16 at 17 :30 Acetaminophen (Tylenol Tab) 650 mg Q4 PRN PO PAIN AND OR ELEVATED TEMP; Start 11/19/16 at 19:00 Ascorbic Acid (Vitamin C) 500 mg DAILY PO Last administered on 11/25/16 07:59 ; Admin Dose 500 MG; Start 11/20/16 at 09:00 Atorvastatin Calcium (Lipitor) 20 mg QHS PO Last administered on 11/26/16 21: 08; Admin Dose 20 MG; Start 11/19/16 at 21:00 Bisacodyl (Dulcolax Supp) 10 mg DAILY PRN [place] BM; Start 11/19/16 at 19:00 Calcitriol (Rocaltrol) 0.25 mcg DAILY PO Last administered on 11/25/16 07:58; Admin Dose 0.25 MCG; Start 11/20/16 at 09:00 Loratadine (Claritin) 10 mg DAILY PO Last administered on 11/25/16 07:59; Admin Dose 10 MG; Start 11/20/16 at 09:00 Multivit/Ca Carb/ B Cmplx/FA/Prenat (Sarika-Nahomi) 1 tab DAILY PO Last administered on 11/25/16 07:58; Admin Dose 1 TAB; Start 11/20/16 at 09:00 Multivitamins Therapeutic (Theragran) 1 tab DAILY PO Last administered on 07:59; Admin Dose 1 TAB; Start 11/20/16 at 09:00 Saccharomyces Boulardii (Florastor) 500 mg BID PO Last administered on 21:08; Admin Dose 500 MG; Start 11/19/16 at 21:00 Tamsulosin HCl (Flomax) 0.4 mg HS PO Last administered on 11/26/16 21:08; Admin Dose 0.4 MG; Start 11/19/16 at 21:00 Epoetin Nito (Epogen (Esrd)) 10,000 units MoWeFr@17 SC Last administered on 17:29; Admin Dose 10,000 UNITS; Start 11/20/16 at 17:00 Nitroglycerin (Nitroglycerin (Sl Tab) 0.4 Mg) 1 tab Q5M PRN SL ANGINA; Start at 14:30 Clopidogrel Bisulfate (plaVIX) 75 mg DAILY PO Last administered on 11/27/16 12 :46; Admin Dose 75 MG; Start 11/21/16 at 09:00 Cholecalciferol (Vitamin D) 1,000 unit DAILY PO Last administered on 11/25/16 07:59; Admin Dose 1,000 UNIT; Start 11/21/16 at 09:00 Docusate Sodium (Colace) 100 mg BID PO Last administered on 11/26/16 21:08; Admin Dose 100 MG; Start 11/20/16 at 21:00 Morphine Sulfate (morphine) 4 mg Q3H PRN IV PAIN Last administered on 14:47; Admin Dose 4 MG; Start 11/27/16 at 12:00 Apixaban (Eliquis) 2.5 mg BID PO ; Start 11/27/16 at 21:00 Procedures Procedures imaging reports reviewed in emr provider notes/op note reviewed in emr AMY PEREZ Nov 27, 2016 16:46
[2016-11-27] MEDS: EPOETIN 10000 UNITS/1 ML INJ (ESRD) SC SCH (18:07)
[2016-11-27] MEDS: APIXABAN 5 MG TABLET PO SCH (20:47)
[2016-11-27] MEDS: TAMSULOSIN (SR) 0.4 MG CAP PO SCH (20:47)
[2016-11-27] MEDS: ATORVASTATIN 20 MG TAB PO SCH (20:47)
[2016-11-28 02:02] VITALS: BP 138/63; RESP 20
[2016-11-28] MEDS: morphine 4 MG/ML VIAL IV PRN ×5 (02:25→19:53)
[2016-11-28] MEDS: ACCU-CHEK XX SCH (02:25)
[2016-11-28] MEDS: HYDROCODONE/APAP (5/325) TAB PO PRN ×2 (05:08→12:36)
[2016-11-28 06:04] LABS: HAAIG REFLEX REFLEX FILED
[2016-11-28 06:11] LABS: BASOPHIL # 0.1 10^3/ul (0.0-0.1); BASOPHILS % 0.5 % (0.0-2.0); EOSINOPHILS # 0.3 10^3/ul (0.0-0.5); EOSINOPHILS % 2.7 % (0.0-7.0); HEMATOCRIT 35.8 % (42.0-52.0); HEMOGLOBIN 10.9 g/dl (14.0-18.0); LYMPHOCYTES # 1.4 10^3/ul (0.8-2.9); LYMPHOCYTES % 12.9 % (15.0-51.0); MEAN CORPUSCULAR HEMOGLOBIN 29.9 pg (29.0-33.0); MEAN CORPUSCULAR HGB CONC 30.4 g/dl (32.0-37.0); MEAN CORPUSCULAR VOLUME 98.1 fl (82.0-101.0); MONOCYTES % 9.3 % (0.0-11.0); NEUTROPHIL # 8.3 10^3/ul (1.6-7.5); NEUTROPHILS % 74.2 % (39.0-77.0); PLATELET COUNT 164 10^3/UL (140-415); RED BLOOD COUNT 3.65 10^6/ul (4.70-6.10); RED CELL DISTRIBUTION WIDTH 19.4 % (11.5-14.5); WHITE BLOOD COUNT 11.2 10^3/ul (4.8-10.8)
[2016-11-28 06:58] LABS: ALBUMIN 2.9 g/dl (3.3-4.9); ALBUMIN/GLOBULIN RATIO 0.8; BILIRUBIN,INDIRECT 0.2 mg/dl (0-1.1); BILIRUBIN,TOTAL 0.2 mg/dl (0.2-1.3); CALCIUM 8.5 mg/dl (8.4-10.2); CREATININE 4.3 mg/dl (0.61-1.24); POTASSIUM 4.2 mmol/L (3.5-5.1); TOTAL PROTEIN 6.5 g/dl (6.1-8.1)
[2016-11-28 08:13] VITALS: BP 122/59; RESP 16
[2016-11-28] MEDS: INSULIN ASPART [NOVOLOG] 3 ML PEN SC SCH ×4 (08:15→22:00)
[2016-11-28 08:35] LABS: HEPATITIS B CORE ANTIBODY NEGATIVE (NEGATIVE)
--- NOTE | 2016-11-28 09:37 | PN ---
Date/Time of Note Date/Time of Note DATE: 11/28/16 TIME: 09:30 Assessment/Plan VTE Prophylaxis VTE Prophylaxis Intervention: other (bilateral amputations) Lines/Catheters IV Catheter Type (from Nrsg): Central Line Central line still needed: Yes Urinary Cath still in place: No Reason Cath still needed: other (indicate) (per id on vanco though could give with dialysis) Assessment/Plan Problems: (1) Amput above knee, unilat Comment: may benefit from neurontin therapy (2) ESRD (end stage renal disease) on dialysis Subjective 24 Hr Interval Summary Free Text/Dictation no appetite and forces himself to eat. Periodic squeezing sensation great intensity right lower leg. Exam/Review of Systems Vital Signs Vitals Vital Signs Date Time Temp Pulse Resp B/P Pulse Ox O2 Delivery O2 Flow Rate FiO2 11/28/16 08:13 97.7 94 16 122/59 95 11/26/16 21:50 Room Air 11/26/16 21:45 1.0 Intake and Output 11/27/16 11/27/16 11/28/16 15:00 23:00 07:00 Intake Total 400 ml 820 ml Output Total 2800 ml 150 ml Balance -2400 ml 670 ml Exam Constitutional: alert Respiratory: clear to auscultation Cardiovascular: regular rate and rhythm Gastrointestinal: soft Extremities: other (dressing over right ak stump clean.) Results Result Diagram: 11/28/16 0523 11/28/16 0523 Results 24 hrs Laboratory Tests Test 11/27/16 09:42 11/27/16 11:37 11/27/16 12:10 11/27/16 17:38 Bedside Glucose 92 122 76 White Blood Count 9.6 # Red Blood Count 3.47 L Hemoglobin 10.8 L Hematocrit 33.1 L Mean Corpuscular Volume 95.4 Mean Corpuscular Hemoglobin 31.1 Mean Corpuscular Hemoglobin Concent 32.6 Red Cell Distribution Width 19.3 H Platelet Count 154 Mean Platelet Volume 9.2 Neutrophils % 81.0 H Lymphocytes % 7.5 L Monocytes % 8.1 Eosinophils % 2.4 Basophils % 0.6 Nucleated Red Blood Cells % 0.0 Neutrophils # 7.8 H Lymphocytes # 0.7 L Monocytes # 0.8 Eosinophils # 0.2 Basophils # 0.1 Nucleated Red Blood Cells # 0.0 Test 11/27/16 20:49 11/28/16 02:25 11/28/16 05:23 11/28/16 08:32 Bedside Glucose 189 105 79 White Blood Count 11.2 H Red Blood Count 3.65 L Hemoglobin 10.9 L Hematocrit 35.8 L Mean Corpuscular Volume 98.1 Mean Corpuscular Hemoglobin 29.9 Mean Corpuscular Hemoglobin Concent 30.4 L Red Cell Distribution Width 19.4 H Platelet Count 164 Mean Platelet Volume 10.0 Neutrophils % 74.2 Lymphocytes % 12.9 L Monocytes % 9.3 Eosinophils % 2.7 Basophils % 0.5 Nucleated Red Blood Cells % 0.0 Neutrophils # 8.3 H Lymphocytes # 1.4 Monocytes # 1.0 H Eosinophils # 0.3 Basophils # 0.1 Nucleated Red Blood Cells # 0.0 Sodium Level 140 Potassium Level 4.2 Chloride Level 100 Carbon Dioxide Level 28 Anion Gap 16 Blood Urea Nitrogen 27 #H Creatinine 4.30 H Glucose Level 77 # Calcium Level 8.5 Total Bilirubin 0.2 Direct Bilirubin 0.00 Indirect Bilirubin 0.2 Aspartate Amino Transf (AST/SGOT) 41 # Alanine Aminotransferase (ALT/SGPT) 34 Alkaline Phosphatase 232 #H Total Protein 6.5 Albumin 2.9 L Globulin 3.60 H Albumin/Globulin Ratio 0.80 Hepatitis B Surface Antigen NEGATIVE Hepatitis B Core Total Antibody NEGATIVE Hepatitis C Antibody REACTIVE H Medications Medications Current Medications Ondansetron HCl (Zofran Inj) 4 mg Q6H PRN IV NAUSEA AND/OR VOMITING; Start at 17:00 Acetaminophen/ Hydrocodone Bitart ([place] (5/325)) 1 tab Q6H PRN PO MODERATE PAIN LEVEL 4-6 Last administered on 11/28/16 05:08; Admin Dose 1 TAB; Start at 17:00 Bisacodyl (Dulcolax) 5 mg DAILY PRN PO CONSTIPATION; Start 11/19/16 at 17:00 Zolpidem Tartrate (Ambien) 5 mg QHS PRN PO SLEEP Last administered on 20:53; Admin Dose 5 MG; Start 11/19/16 at 17:00 Diagnostic Test (Pha) (Accu-Chek) 1 ea 02 XX Last administered on 11/28/16 02: 25; Admin Dose 1 EA; Start 11/20/16 at 02:00 Miscellaneous Information 1 ea NOTE XX ; Start 11/19/16 at 17:30 Glucose (Glutose) 15 gm Q15M PRN PO DECREASED GLUCOSE; Start 11/19/16 at 17:30 Glucose (Glutose) 22.5 gm Q15M PRN PO DECREASED GLUCOSE; Start 11/19/16 at 17: 30 Dextrose (D50w Syringe) 25 ml Q15M PRN IV DECREASED GLUCOSE; Start 11/19/16 at 17:30 Dextrose (D50w Syringe) 50 ml Q15M PRN IV DECREASED GLUCOSE; Start 11/19/16 at 17:30 Glucagon (Glucagen) 1 mg Q15M PRN IM DECREASED GLUCOSE; Start 11/19/16 at 17:30 Glucose (Glutose) 15 gm Q15M PRN BUCCAL DECREASED GLUCOSE; Start 11/19/16 at 17 :30 Acetaminophen (Tylenol Tab) 650 mg Q4 PRN PO PAIN AND OR ELEVATED TEMP; Start 11/19/16 at 19:00 Ascorbic Acid (Vitamin C) 500 mg DAILY PO Last administered on 11/25/16 07:59 ; Admin Dose 500 MG; Start 11/20/16 at 09:00 Atorvastatin Calcium (Lipitor) 20 mg QHS PO Last administered on 11/27/16 20: 47; Admin Dose 20 MG; Start 11/19/16 at 21:00 Bisacodyl (Dulcolax Supp) 10 mg DAILY PRN [place] BM; Start 11/19/16 at 19:00 Calcitriol (Rocaltrol) 0.25 mcg DAILY PO Last administered on 11/25/16 07:58; Admin Dose 0.25 MCG; Start 11/20/16 at 09:00 Loratadine (Claritin) 10 mg DAILY PO Last administered on 11/25/16 07:59; Admin Dose 10 MG; Start 11/20/16 at 09:00 Multivit/Ca Carb/ B Cmplx/FA/Prenat (Sarika-Nahomi) 1 tab DAILY PO Last administered on 11/25/16 07:58; Admin Dose 1 TAB; Start 11/20/16 at 09:00 Multivitamins Therapeutic (Theragran) 1 tab DAILY PO Last administered on 07:59; Admin Dose 1 TAB; Start 11/20/16 at 09:00 Saccharomyces Boulardii (Florastor) 500 mg BID PO Last administered on 20:47; Admin Dose 500 MG; Start 11/19/16 at 21:00 Tamsulosin HCl (Flomax) 0.4 mg HS PO Last administered on 11/27/16 20:47; Admin Dose 0.4 MG; Start 11/19/16 at 21:00 Epoetin Nito (Epogen (Esrd)) 10,000 units MoWeFr@17 SC Last administered on 18:07; Admin Dose 10,000 UNITS; Start 11/20/16 at 17:00 Nitroglycerin (Nitroglycerin (Sl Tab) 0.4 Mg) 1 tab Q5M PRN SL ANGINA; Start at 14:30 Clopidogrel Bisulfate (plaVIX) 75 mg DAILY PO Last administered on 11/27/16 12 :46; Admin Dose 75 MG; Start 11/21/16 at 09:00 Cholecalciferol (Vitamin D) 1,000 unit DAILY PO Last administered on 11/25/16 07:59; Admin Dose 1,000 UNIT; Start 11/21/16 at 09:00 Docusate Sodium (Colace) 100 mg BID PO Last administered on 11/27/16 20:47; Admin Dose 100 MG; Start 11/20/16 at 21:00 Morphine Sulfate (morphine) 4 mg Q3H PRN IV PAIN Last administered on 06:10; Admin Dose 4 MG; Start 11/27/16 at 12:00 Apixaban (Eliquis) 2.5 mg BID PO Last administered on 11/27/16 20:47; Admin Dose 2.5 MG; Start 11/27/16 at 21:00 DEBBIE HARDING MD Nov 28, 2016 09:37
[2016-11-28] MEDS: MULTIVIT/CA CARB/B CMPLX/FA TAB PO SCH (09:55)
[2016-11-28] MEDS: CHOLECALCIFEROL 1,000 UNIT TAB PO SCH (09:55)
[2016-11-28] MEDS: MULTIVITAMINS THERAPEUTIC TAB PO SCH (09:55)
[2016-11-28] MEDS: DOCUSATE SODIUM 100 MG CAP PO SCH ×2 (09:55→20:39)
[2016-11-28] MEDS: CALCITRIOL 0.25 MCG CAP PO SCH (09:55)
[2016-11-28] MEDS: CREON (12k-38k-60k) 1 CAP PO SCH ×3 (09:55→18:00)
[2016-11-28] MEDS: APIXABAN 5 MG TABLET PO SCH ×2 (09:55→20:39)
[2016-11-28] MEDS: LORATADINE 10 MG TAB PO SCH (09:56)
[2016-11-28] MEDS: SACCHAROMYCES BOULARDII 250 MG CAP PO SCH ×2 (09:56→20:39)
[2016-11-28] MEDS: CALCIUM ACETATE 667 MG CAP PO SCH ×3 (09:56→17:29)
[2016-11-28] MEDS: CLOPIDOGREL 75 MG TAB PO SCH (09:56)
[2016-11-28] MEDS: ASCORBIC ACID 500 MG TAB PO SCH (09:56)
[2016-11-28] MEDS: GABAPENTIN 100 MG CAP GTB SCH ×2 (12:37→20:40)
[2016-11-28 14:00] VITALS: BP 126/59; RESP 18
--- NOTE | 2016-11-28 15:25 | CONS ---
Date/Time of Note Date/Time of Note DATE: 11/28/16 TIME: 15:22 Assessment/Plan Assessment/Plan Additional Assessment/Plan 70 yowm w/ numerous medical issues ICM (EF 40%), CAD (PCI of LAD), CVA, ESRD on HD, moderate , DM, hld, and PAD who is now s/p right AKA. Stable from a cardiac standpoint. Continue cardiac meds. Defer management of AKA to vascular surgery. Consultation Date/Type/Reason Admit Date/Time Nov 19, 2016 at 16:56 Initial Consult Date 11/20/16 Type of Consultation: Cardiology Referring Provider: CELESTE BHATT MD 24 HR Interval Summary Free Text/Dictation Denies cp, sob or palpitations. Has pain at right wound site - pt feels the splint needs to be readjusted. Exam/Review of Systems Vital Signs Vitals Vital Signs Date Time Temp Pulse Resp B/P Pulse Ox O2 Delivery O2 Flow Rate FiO2 11/28/16 08:13 97.7 94 16 122/59 95 11/26/16 21:50 Room Air 11/26/16 21:45 1.0 Intake and Output 11/27/16 11/27/16 11/28/16 15:00 23:00 07:00 Intake Total 400 ml 820 ml Output Total 2800 ml 150 ml Balance -2400 ml 670 ml Exam Constitutional: alert, No distress Neck: No jvd Respiratory: clear to auscultation Cardiovascular: other (2/6 JEAN PIERRE), regular rate and rhythm Extremities: other (R AKA - dsg in place, left BKA) Results Result Diagram: 11/28/1652211/28/16522 Results 24 hrs Laboratory Tests Test 11/27/16 17:38 11/27/16 20:49 11/28/16 02:25 11/28/16 05:23 Bedside Glucose 76 189 105 White Blood Count 11.2 H Red Blood Count 3.65 L Hemoglobin 10.9 L Hematocrit 35.8 L Mean Corpuscular Volume 98.1 Mean Corpuscular Hemoglobin 29.9 Mean Corpuscular Hemoglobin Concent 30.4 L Red Cell Distribution Width 19.4 H Platelet Count 164 Mean Platelet Volume 10.0 Neutrophils % 74.2 Lymphocytes % 12.9 L Monocytes % 9.3 Eosinophils % 2.7 Basophils % 0.5 Nucleated Red Blood Cells % 0.0 Neutrophils # 8.3 H Lymphocytes # 1.4 Monocytes # 1.0 H Eosinophils # 0.3 Basophils # 0.1 Nucleated Red Blood Cells # 0.0 Sodium Level 140 Potassium Level 4.2 Chloride Level 100 Carbon Dioxide Level 28 Anion Gap 16 Blood Urea Nitrogen 27 #H Creatinine 4.30 H Glucose Level 77 # Calcium Level 8.5 Total Bilirubin 0.2 Direct Bilirubin 0.00 Indirect Bilirubin 0.2 Aspartate Amino Transf (AST/SGOT) 41 # Alanine Aminotransferase (ALT/SGPT) 34 Alkaline Phosphatase 232 #H Total Protein 6.5 Albumin 2.9 L Globulin 3.60 H Albumin/Globulin Ratio 0.80 Hepatitis B Surface Antigen NEGATIVE Hepatitis B Core Total Antibody NEGATIVE Hepatitis C Antibody REACTIVE H Test 11/28/16 08:32 11/28/16 12:33 Bedside Glucose 79 80 Medications Medications Current Medications Ondansetron HCl (Zofran Inj) 4 mg Q6H PRN IV NAUSEA AND/OR VOMITING; Start at 17:00 Acetaminophen/ Hydrocodone Bitart ([place] (5/325)) 1 tab Q6H PRN PO MODERATE PAIN LEVEL 4-6 Last administered on 11/28/16 12:36; Admin Dose 1 TAB; Start at 17:00 Bisacodyl (Dulcolax) 5 mg DAILY PRN PO CONSTIPATION; Start 11/19/16 at 17:00 Zolpidem Tartrate (Ambien) 5 mg QHS PRN PO SLEEP Last administered on 20:53; Admin Dose 5 MG; Start 11/19/16 at 17:00 Diagnostic Test (Pha) (Accu-Chek) 1 ea 02 XX Last administered on 11/28/16 02: 25; Admin Dose 1 EA; Start 11/20/16 at 02:00 Miscellaneous Information 1 ea NOTE XX ; Start 11/19/16 at 17:30 Glucose (Glutose) 15 gm Q15M PRN PO DECREASED GLUCOSE; Start 11/19/16 at 17:30 Glucose (Glutose) 22.5 gm Q15M PRN PO DECREASED GLUCOSE; Start 11/19/16 at 17: 30 Dextrose (D50w Syringe) 25 ml Q15M PRN IV DECREASED GLUCOSE; Start 11/19/16 at 17:30 Dextrose (D50w Syringe) 50 ml Q15M PRN IV DECREASED GLUCOSE; Start 11/19/16 at 17:30 Glucagon (Glucagen) 1 mg Q15M PRN IM DECREASED GLUCOSE; Start 11/19/16 at 17:30 Glucose (Glutose) 15 gm Q15M PRN BUCCAL DECREASED GLUCOSE; Start 11/19/16 at 17 :30 Acetaminophen (Tylenol Tab) 650 mg Q4 PRN PO PAIN AND OR ELEVATED TEMP; Start 11/19/16 at 19:00 Ascorbic Acid (Vitamin C) 500 mg DAILY PO Last administered on 11/28/16 09:56 ; Admin Dose 500 MG; Start 11/20/16 at 09:00 Atorvastatin Calcium (Lipitor) 20 mg QHS PO Last administered on 11/27/16 20: 47; Admin Dose 20 MG; Start 11/19/16 at 21:00 Bisacodyl (Dulcolax Supp) 10 mg DAILY PRN [place] BM; Start 11/19/16 at 19:00 Calcitriol (Rocaltrol) 0.25 mcg DAILY PO Last administered on 11/28/16 09:55; Admin Dose 0.25 MCG; Start 11/20/16 at 09:00 Loratadine (Claritin) 10 mg DAILY PO Last administered on 11/28/16 09:56; Admin Dose 10 MG; Start 11/20/16 at 09:00 Multivit/Ca Carb/ B Cmplx/FA/Prenat (Sarika-Nahomi) 1 tab DAILY PO Last administered on 11/28/16 09:55; Admin Dose 1 TAB; Start 11/20/16 at 09:00 Multivitamins Therapeutic (Theragran) 1 tab DAILY PO Last administered on 09:55; Admin Dose 1 TAB; Start 11/20/16 at 09:00 Saccharomyces Boulardii (Florastor) 500 mg BID PO Last administered on 09:56; Admin Dose 500 MG; Start 11/19/16 at 21:00 Tamsulosin HCl (Flomax) 0.4 mg HS PO Last administered on 11/27/16 20:47; Admin Dose 0.4 MG; Start 11/19/16 at 21:00 Epoetin Nito (Epogen (Esrd)) 10,000 units MoWeFr@17 SC Last administered on 18:07; Admin Dose 10,000 UNITS; Start 11/20/16 at 17:00 Nitroglycerin (Nitroglycerin (Sl Tab) 0.4 Mg) 1 tab Q5M PRN SL ANGINA; Start at 14:30 Clopidogrel Bisulfate (plaVIX) 75 mg DAILY PO Last administered on 11/28/16 09 :56; Admin Dose 75 MG; Start 11/21/16 at 09:00 Cholecalciferol (Vitamin D) 1,000 unit DAILY PO Last administered on 11/28/16 09:55; Admin Dose 1,000 UNIT; Start 11/21/16 at 09:00 Docusate Sodium (Colace) 100 mg BID PO Last administered on 11/28/16 09:55; Admin Dose 100 MG; Start 11/20/16 at 21:00 Morphine Sulfate (morphine) 4 mg Q3H PRN IV PAIN Last administered on 10:08; Admin Dose 4 MG; Start 11/27/16 at 12:00 Apixaban (Eliquis) 2.5 mg BID PO Last administered on 11/28/16 09:55; Admin Dose 2.5 MG; Start 11/27/16 at 21:00 Gabapentin (Neurontin) 100 mg TID GTB Last administered on 11/28/16 12:37; Admin Dose 100 MG; Start 11/28/16 at 13:00 BAM PADGETT Nov 28, 2016 15:25
[2016-11-28 20:03] VITALS: BP 119/58; RESP 18
[2016-11-28] MEDS: TAMSULOSIN (SR) 0.4 MG CAP PO SCH (20:38)
[2016-11-28] MEDS: ATORVASTATIN 20 MG TAB PO SCH (20:39)
[2016-11-28] MEDS: ZOLPIDEM 5 MG TAB PO PRN (22:05)
[2016-11-29] MEDS: ACCU-CHEK XX SCH (02:00)
[2016-11-29 02:08] VITALS: BP 133/61; RESP 18
[2016-11-29 02:18] VITALS: BP 147/71; RESP 18
[2016-11-29 06:17] LABS: BASOPHILS % 0.2 % (0.0-2.0); EOSINOPHILS # 0.2 10^3/ul (0.0-0.5); EOSINOPHILS % 1.4 % (0.0-7.0); HEMATOCRIT 33.8 % (42.0-52.0); HEMOGLOBIN 10.6 g/dl (14.0-18.0); LYMPHOCYTES # 1.4 10^3/ul (0.8-2.9); LYMPHOCYTES % 11.6 % (15.0-51.0); MEAN CORPUSCULAR HEMOGLOBIN 30.6 pg (29.0-33.0); MEAN CORPUSCULAR HGB CONC 31.4 g/dl (32.0-37.0); MEAN CORPUSCULAR VOLUME 97.7 fl (82.0-101.0); MEAN PLATELET VOLUME 9.7 fl (7.4-10.4); MONOCYTE # 0.9 10^3/ul (0.3-0.9); MONOCYTES % 7.2 % (0.0-11.0); NEUTROPHIL # 9.7 10^3/ul (1.6-7.5); NEUTROPHILS % 79.2 % (39.0-77.0); PLATELET COUNT 167 10^3/UL (140-415); RED BLOOD COUNT 3.46 10^6/ul (4.70-6.10); RED CELL DISTRIBUTION WIDTH 18.3 % (11.5-14.5); WHITE BLOOD COUNT 12.2 10^3/ul (4.8-10.8)
[2016-11-29 07:34] VITALS: BP 134/58; RESP 18
[2016-11-29] MEDS: INSULIN ASPART [NOVOLOG] 3 ML PEN SC SCH ×4 (08:15→20:15)
[2016-11-29] MEDS: morphine 4 MG/ML VIAL IV PRN ×2 (08:32→15:40)
[2016-11-29] MEDS: DOCUSATE SODIUM 100 MG CAP PO SCH ×2 (08:36→20:15)
[2016-11-29] MEDS: CREON (12k-38k-60k) 1 CAP PO SCH ×3 (08:36→17:57)
[2016-11-29] MEDS: SACCHAROMYCES BOULARDII 250 MG CAP PO SCH ×2 (08:37→20:15)
[2016-11-29] MEDS: CHOLECALCIFEROL 1,000 UNIT TAB PO SCH (08:37)
[2016-11-29] MEDS: APIXABAN 5 MG TABLET PO SCH ×2 (08:38→20:15)
[2016-11-29] MEDS: MULTIVITAMINS THERAPEUTIC TAB PO SCH (08:38)
[2016-11-29] MEDS: GABAPENTIN 100 MG CAP GTB SCH ×3 (08:38→20:15)
[2016-11-29] MEDS: CALCITRIOL 0.25 MCG CAP PO SCH (08:38)
[2016-11-29] MEDS: CALCIUM ACETATE 667 MG CAP PO SCH ×3 (08:38→17:57)
[2016-11-29] MEDS: CLOPIDOGREL 75 MG TAB PO SCH (08:38)
[2016-11-29] MEDS: ASCORBIC ACID 500 MG TAB PO SCH (08:38)
[2016-11-29] MEDS: MULTIVIT/CA CARB/B CMPLX/FA TAB PO SCH (08:38)
[2016-11-29] MEDS: LORATADINE 10 MG TAB PO SCH (08:43)
--- NOTE | 2016-11-29 10:00 | CONS ---
Date/Time of Note Date/Time of Note DATE: 11/29/16 TIME: 09:57 Assessment/Plan Assessment/Plan Problems: (1) ESRD (end stage renal disease) on dialysis Comment: dialysis ordered for tomorrow (2) Amput above knee, unilat Consultation Date/Type/Reason Admit Date/Time Nov 19, 2016 at 16:56 Initial Consult Date 11/20/16 Type of Consultation: Neph Referring Provider: CELESTE BHATT MD 24 HR Interval Summary Free Text/Dictation Patient lethargic and arouseable and relates paroxysmal severe pain and cramp. Exam/Review of Systems Vital Signs Vitals Vital Signs Date Time Temp Pulse Resp B/P Pulse Ox O2 Delivery O2 Flow Rate FiO2 11/29/16 07:34 97.9 85 18 134/58 94 11/26/16 21:50 Room Air 11/26/16 21:45 1.0 Intake and Output 11/28/16 11/28/16 11/29/16 15:00 23:00 07:00 Intake Total 640 ml Output Total 0 ml Balance 640 ml 0 ml Exam Constitutional: other (sleepy and arouseable and meiotic pupils) Respiratory: clear to auscultation Cardiovascular: regular rate and rhythm Gastrointestinal: soft Results Result Diagram: 11/29/16 0523 11/28/16 0523 Results 24 hrs Laboratory Tests Test 11/28/16 12:33 11/28/16 17:28 11/28/16 22:04 11/29/16 05:23 Bedside Glucose 80 86 110 White Blood Count 12.2 H Red Blood Count 3.46 L Hemoglobin 10.6 L Hematocrit 33.8 L Mean Corpuscular Volume 97.7 Mean Corpuscular Hemoglobin 30.6 Mean Corpuscular Hemoglobin Concent 31.4 L Red Cell Distribution Width 18.3 H Platelet Count 167 Mean Platelet Volume 9.7 Neutrophils % 79.2 H Lymphocytes % 11.6 L Monocytes % 7.2 Eosinophils % 1.4 Basophils % 0.2 Nucleated Red Blood Cells % 0.0 Neutrophils # 9.7 H Lymphocytes # 1.4 Monocytes # 0.9 Eosinophils # 0.2 Basophils # 0.0 Nucleated Red Blood Cells # 0.0 Test 11/29/16 08:29 Bedside Glucose 121 Medications Medications Current Medications Ondansetron HCl (Zofran Inj) 4 mg Q6H PRN IV NAUSEA AND/OR VOMITING; Start at 17:00 Acetaminophen/ Hydrocodone Bitart ([place] (5/325)) 1 tab Q6H PRN PO MODERATE PAIN LEVEL 4-6 Last administered on 11/28/16 12:36; Admin Dose 1 TAB; Start at 17:00 Bisacodyl (Dulcolax) 5 mg DAILY PRN PO CONSTIPATION; Start 11/19/16 at 17:00 Zolpidem Tartrate (Ambien) 5 mg QHS PRN PO SLEEP Last administered on 22:05; Admin Dose 5 MG; Start 11/19/16 at 17:00 Diagnostic Test (Pha) (Accu-Chek) 1 ea 02 XX Last administered on 11/28/16 02: 25; Admin Dose 1 EA; Start 11/20/16 at 02:00 Miscellaneous Information 1 ea NOTE XX ; Start 11/19/16 at 17:30 Glucose (Glutose) 15 gm Q15M PRN PO DECREASED GLUCOSE; Start 11/19/16 at 17:30 Glucose (Glutose) 22.5 gm Q15M PRN PO DECREASED GLUCOSE; Start 11/19/16 at 17: 30 Dextrose (D50w Syringe) 25 ml Q15M PRN IV DECREASED GLUCOSE; Start 11/19/16 at 17:30 Dextrose (D50w Syringe) 50 ml Q15M PRN IV DECREASED GLUCOSE; Start 11/19/16 at 17:30 Glucagon (Glucagen) 1 mg Q15M PRN IM DECREASED GLUCOSE; Start 11/19/16 at 17:30 Glucose (Glutose) 15 gm Q15M PRN BUCCAL DECREASED GLUCOSE; Start 11/19/16 at 17 :30 Acetaminophen (Tylenol Tab) 650 mg Q4 PRN PO PAIN AND OR ELEVATED TEMP; Start 11/19/16 at 19:00 Ascorbic Acid (Vitamin C) 500 mg DAILY PO Last administered on 11/29/16 08:38 ; Admin Dose 500 MG; Start 11/20/16 at 09:00 Atorvastatin Calcium (Lipitor) 20 mg QHS PO Last administered on 11/28/16 20: 39; Admin Dose 20 MG; Start 11/19/16 at 21:00 Bisacodyl (Dulcolax Supp) 10 mg DAILY PRN [place] BM; Start 11/19/16 at 19:00 Calcitriol (Rocaltrol) 0.25 mcg DAILY PO Last administered on 11/29/16 08:38; Admin Dose 0.25 MCG; Start 11/20/16 at 09:00 Loratadine (Claritin) 10 mg DAILY PO Last administered on 11/29/16 08:43; Admin Dose 10 MG; Start 11/20/16 at 09:00 Multivit/Ca Carb/ B Cmplx/FA/Prenat (Sarika-Nahomi) 1 tab DAILY PO Last administered on 11/29/16 08:38; Admin Dose 1 TAB; Start 11/20/16 at 09:00 Multivitamins Therapeutic (Theragran) 1 tab DAILY PO Last administered on 08:38; Admin Dose 1 TAB; Start 11/20/16 at 09:00 Saccharomyces Boulardii (Florastor) 500 mg BID PO Last administered on 08:37; Admin Dose 500 MG; Start 11/19/16 at 21:00 Tamsulosin HCl (Flomax) 0.4 mg HS PO Last administered on 11/28/16 20:38; Admin Dose 0.4 MG; Start 11/19/16 at 21:00 Epoetin Nito (Epogen (Esrd)) 10,000 units MoWeFr@17 [place] Last administered on 18:07; Admin Dose 10,000 UNITS; Start 11/20/16 at 17:00 Nitroglycerin (Nitroglycerin (Sl Tab) 0.4 Mg) 1 tab Q5M PRN SL ANGINA; Start at 14:30 Clopidogrel Bisulfate (plaVIX) 75 mg DAILY PO Last administered on 11/29/16 08 :38; Admin Dose 75 MG; Start 11/21/16 at 09:00 Cholecalciferol (Vitamin D) 1,000 unit DAILY PO Last administered on 11/29/16 08:37; Admin Dose 1,000 UNIT; Start 11/21/16 at 09:00 Docusate Sodium (Colace) 100 mg BID PO Last administered on 11/29/16 08:36; Admin Dose 100 MG; Start 11/20/16 at 21:00 Morphine Sulfate (morphine) 4 mg Q3H PRN IV PAIN Last administered on 08:32; Admin Dose 4 MG; Start 11/27/16 at 12:00 Apixaban (Eliquis) 2.5 mg BID PO Last administered on 11/29/16 08:38; Admin Dose 2.5 MG; Start 11/27/16 at 21:00 Gabapentin (Neurontin) 100 mg TID GTB Last administered on 11/29/16 08:38; Admin Dose 100 MG; Start 11/28/16 at 13:00 DEBBIE HARDING MD Nov 29, 2016 10:00
[2016-11-29 14:43] VITALS: BP 114/57; RESP 19
[2016-11-29 19:58] VITALS: BP 112/57; RESP 18
[2016-11-29] MEDS: TAMSULOSIN (SR) 0.4 MG CAP PO SCH (20:15)
[2016-11-29] MEDS: ATORVASTATIN 20 MG TAB PO SCH (20:15)
[2016-11-30] VITALS (12 sets, daily range): BP systolic 105–142; BP diastolic 56–78; PULSE 70–81; RESP 18–20
[2016-11-30] MEDS: ACCU-CHEK XX SCH (02:00)
[2016-11-30] MEDS: morphine 4 MG/ML VIAL IV PRN ×3 (03:04→19:46)
[2016-11-30 06:20] LABS: BASOPHILS % 0.4 % (0.0-2.0); EOSINOPHILS # 0.2 10^3/ul (0.0-0.5); EOSINOPHILS % 1.7 % (0.0-7.0); HEMATOCRIT 32.9 % (42.0-52.0); LYMPHOCYTES # 1.2 10^3/ul (0.8-2.9); LYMPHOCYTES % 10.7 % (15.0-51.0); MEAN CORPUSCULAR HEMOGLOBIN 29.5 pg (29.0-33.0); MEAN CORPUSCULAR HGB CONC 30.4 g/dl (32.0-37.0); MEAN CORPUSCULAR VOLUME 97.1 fl (82.0-101.0); MEAN PLATELET VOLUME 10.1 fl (7.4-10.4); MONOCYTE # 0.7 10^3/ul (0.3-0.9); MONOCYTES % 6.2 % (0.0-11.0); NEUTROPHIL # 8.8 10^3/ul (1.6-7.5); NEUTROPHILS % 80.5 % (39.0-77.0); PLATELET COUNT 174 10^3/UL (140-415); RED BLOOD COUNT 3.39 10^6/ul (4.70-6.10); RED CELL DISTRIBUTION WIDTH 17.9 % (11.5-14.5); WHITE BLOOD COUNT 10.9 10^3/ul (4.8-10.8)
--- NOTE | 2016-11-30 07:35 | CONS ---
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 repeat wound cx have been taken podiatry did some debridement today await cx results continue with vanco/zosyn at present pt will likely need R BKA 11/23 - if no surgery is planned than pt will need MRI of R foot to verify that pt has osteo and will need 6 weeks of antibiotics MRSA from wound, to initiate isolation continue vanco/zosyn for at least 2 weeks 11/25 - if pt is deferring further aggressive treatment than an option would be longer term oral antibiotics to try to prevent progression an option would be doxy/augmentin for him the treatment length would be 8-12 weeks and if improvement is actually seen then continued on till ulcers are healed longer term oral antibiotics are an option in pts who are not surgical candidates or who refuse surgery the ESR is decreasing 11/27 - site of infection was removed with his R AKA surgery d/c antibiotics 2) DM 3) ESRD on HD 4) recent R sided CVA 5) CAD 6) Hep C ab is positive no hx of hepatitis ordered PCR to see if pt has active hep C Problems: Consultation Date/Type/Reason Admit Date/Time Nov 19, 2016 at 16:56 Initial Consult Date 11/20/16 Type of Consultation: ID Referring Provider: CELESTE BHATT MD 24 HR Interval Summary Free Text/Dictation pt still with spasms and pain to R stump has N but can't remember if he vomited no SOB no hx of hepatitis Exam/Review of Systems Vital Signs Vitals Vital Signs Date Time Temp Pulse Resp B/P Pulse Ox O2 Delivery O2 Flow Rate FiO2 11/30/16 02:10 95 Room Air 11/30/16 01:54 97.9 76 18 117/56 11/26/16 21:45 1.0 Intake and Output 11/29/16 11/29/16 11/30/16 15:00 23:00 07:00 Intake Total 220 ml Balance 220 ml Results Result Diagram: 11/30/16 0529 11/28/16 0523 Results 24 hrs Laboratory Tests Test 11/29/16 08:29 11/29/16 12:42 11/29/16:30 11/29/16 20:14 Bedside Glucose 121 112 114 119 Test 11/30/16 05:29 White Blood Count 10.9 H Red Blood Count 3.39 L Hemoglobin 10.0 L Hematocrit 32.9 L Mean Corpuscular Volume 97.1 Mean Corpuscular Hemoglobin 29.5 Mean Corpuscular Hemoglobin Concent 30.4 L Red Cell Distribution Width 17.9 H Platelet Count 174 Mean Platelet Volume 10.1 Neutrophils % 80.5 H Lymphocytes % 10.7 L Monocytes % 6.2 Eosinophils % 1.7 Basophils % 0.4 Nucleated Red Blood Cells % 0.0 Neutrophils # 8.8 H Lymphocytes # 1.2 Monocytes # 0.7 Eosinophils # 0.2 Basophils # 0.0 Nucleated Red Blood Cells # 0.0 Medications Medications Current Medications Ondansetron HCl (Zofran Inj) 4 mg Q6H PRN IV NAUSEA AND/OR VOMITING; Start at 17:00 Acetaminophen/ Hydrocodone Bitart ([place] (5/325)) 1 tab Q6H PRN PO MODERATE PAIN LEVEL 4-6 Last administered on 11/28/16 12:36; Admin Dose 1 TAB; Start at 17:00 Bisacodyl (Dulcolax) 5 mg DAILY PRN PO CONSTIPATION; Start 11/19/16 at 17:00 Zolpidem Tartrate (Ambien) 5 mg QHS PRN PO SLEEP Last administered on 22:05; Admin Dose 5 MG; Start 11/19/16 at 17:00 Diagnostic Test (Pha) (Accu-Chek) 1 ea 02 XX Last administered on 11/28/16 02: 25; Admin Dose 1 EA; Start 11/20/16 at 02:00 Miscellaneous Information 1 ea NOTE XX ; Start 11/19/16 at 17:30 Glucose (Glutose) 15 gm Q15M PRN PO DECREASED GLUCOSE; Start 11/19/16 at 17:30 Glucose (Glutose) 22.5 gm Q15M PRN PO DECREASED GLUCOSE; Start 11/19/16 at 17: 30 Dextrose (D50w Syringe) 25 ml Q15M PRN IV DECREASED GLUCOSE; Start 11/19/16 at 17:30 Dextrose (D50w Syringe) 50 ml Q15M PRN IV DECREASED GLUCOSE; Start 11/19/16 at 17:30 Glucagon (Glucagen) 1 mg Q15M PRN IM DECREASED GLUCOSE; Start 11/19/16 at 17:30 Glucose (Glutose) 15 gm Q15M PRN BUCCAL DECREASED GLUCOSE; Start 11/19/16 at 17 :30 Acetaminophen (Tylenol Tab) 650 mg Q4 PRN PO PAIN AND OR ELEVATED TEMP; Start 11/19/16 at 19:00 Ascorbic Acid (Vitamin C) 500 mg DAILY PO Last administered on 11/29/16 08:38 ; Admin Dose 500 MG; Start 11/20/16 at 09:00 Atorvastatin Calcium (Lipitor) 20 mg QHS PO Last administered on 11/29/16 20: 15; Admin Dose 20 MG; Start 11/19/16 at 21:00 Bisacodyl (Dulcolax Supp) 10 mg DAILY PRN [place] BM; Start 11/19/16 at 19:00 Calcitriol (Rocaltrol) 0.25 mcg DAILY PO Last administered on 11/29/16 08:38; Admin Dose 0.25 MCG; Start 11/20/16 at 09:00 Loratadine (Claritin) 10 mg DAILY PO Last administered on 11/29/16 08:43; Admin Dose 10 MG; Start 11/20/16 at 09:00 Multivit/Ca Carb/ B Cmplx/FA/Prenat (Sarika-Nahomi) 1 tab DAILY PO Last administered on 11/29/16 08:38; Admin Dose 1 TAB; Start 11/20/16 at 09:00 Multivitamins Therapeutic (Theragran) 1 tab DAILY PO Last administered on 08:38; Admin Dose 1 TAB; Start 11/20/16 at 09:00 Saccharomyces Boulardii (Florastor) 500 mg BID PO Last administered on 20:15; Admin Dose 500 MG; Start 11/19/16 at 21:00 Tamsulosin HCl (Flomax) 0.4 mg HS PO Last administered on 11/29/16 20:15; Admin Dose 0.4 MG; Start 11/19/16 at 21:00 Epoetin Nito (Epogen (Esrd)) 10,000 units MoWeFr@17 SC Last administered on 18:07; Admin Dose 10,000 UNITS; Start 11/20/16 at 17:00 Nitroglycerin (Nitroglycerin (Sl Tab) 0.4 Mg) 1 tab Q5M PRN SL ANGINA; Start at 14:30 Clopidogrel Bisulfate (plaVIX) 75 mg DAILY PO Last administered on 11/29/16 08 :38; Admin Dose 75 MG; Start 11/21/16 at 09:00 Cholecalciferol (Vitamin D) 1,000 unit DAILY PO Last administered on 11/29/16 08:37; Admin Dose 1,000 UNIT; Start 11/21/16 at 09:00 Docusate Sodium (Colace) 100 mg BID PO Last administered on 11/29/16 20:15; Admin Dose 100 MG; Start 11/20/16 at 21:00 Morphine Sulfate (morphine) 4 mg Q3H PRN IV PAIN Last administered on 03:04; Admin Dose 4 MG; Start 11/27/16 at 12:00 Apixaban (Eliquis) 2.5 mg BID PO Last administered on 11/29/16 20:15; Admin Dose 2.5 MG; Start 11/27/16 at 21:00 Gabapentin (Neurontin) 100 mg TID GTB Last administered on 11/29/16 20:15; Admin Dose 100 MG; Start 11/28/16 at 13:00 PEDRO PATRICK MD Nov 30, 2016 07:35
--- NOTE | 2016-11-30 07:55 | OPR ---
Date/Time of Note Date/Time of Note DATE: 11/30/16 TIME: 07:52 Operative Report Free Text/Dictation DATE OF OPERATION: 11/26/2016 SURGEON: Johny Rosado MD PREOPERATIVE DIAGNOSIS: Right Lower Extremity gangrene POSTOPERATIVE DIAGNOSIS: same ANESTHESIA: general BLOOD LOSS: 25ml COMPLICATIONS: None. INDICATIONS: This is an 70 male whom had presented with bilateral lower extremity ischemia with tissue loss no popliteal and pedal pulses. Patient is limited with ambulation and left knee contracture. Risks and benefits were discussed with patient and family and not limited to , [place], stroke, pneumonia, hematoma, infection, revision of amputation, bleeding. PROCEDURE: 1. Ligation of right lower extremity vein bypass graft 2. Right above knee amputation DESCRIPTION OF THE PROCEDURE: The patient was brought to the operating room and positioned in the supine position on the operating room table. The lower extremity was prepped and draped in usual sterile fashion. The preoperative antibiotics were given. Anesthesia was initiated and patient tolerated well. Jimenez catheter was placed. The correct site was marked and confirmed. Time-out was performed. 3cm incision was made on the proximal aspect of the right thigh. Using electrocautery and scissors the vein graft was identified and ligated using 2-0 silk sutures. The incision was closed with interrupted 3-0 vinyl suture and Dermabond was applied. Anterior and posterior skin flaps were outlined with a marking pen 10 cm proximal to the knee joint. This incision was then performed and deepened through serpiginous tissue into the muscular fascia was identified. The greater saphenous vein was identified and ligated with a 3-0 silk ties and divided. Muscle groups over the anterior and medial thigh were divided with electrocautery at the same level of the skin incision. The neurovascular bundle was identified in the medial aspect of the thigh. The popliteal artery and veins were isolated and suture ligated with 3-0 Vicryl suture. The sciatic nerve was pulled and ligated with a 3-0 Vicryl suture tied and divided. The posterior thigh muscles were then divided with electrocautery. Once the muscle groups were circumferentially divided the periosteum was incised and elevated approximately 5 cm proximally off the femur. The femur was divided with electric saw. The proximal end of the transected femur was smoothed with a file. The amputation stump was irrigated copiously with antibiotic solution. Hemostasis was secured. The periosteum was closed with a interrupted 2-0 Vicryl suture over the transected femur. The fascia of the thigh muscles was also closed with interrupted 2-0 Vicryl suture. The dermal layer was approximated with interrupted 3-0 Vicryl sutures. Skin alec were applied. Sterile dressing was applied with gauze and Kerlix and Nacho bandage. The patient on procedure well was taken to post anesthesia care unit in stable condition. All instrument needle and sponge counts were correct 2. Surgeon see signature line Anesthesia Type: moderate sedation, other (regional) Estimated Blood Loss: 10 - 50 ml's Transfusion Required: no Specimens right AKA Grafts/Implants: none Complications: no Pt Condition Post Procedure: stable Disposition: PACU (local) JOHNY ROSADO MD Nov 30, 2016 07:55
[2016-11-30] MEDS: INSULIN ASPART [NOVOLOG] 3 ML PEN SC SCH ×4 (08:15→21:00)
[2016-11-30] MEDS: CALCITRIOL 0.25 MCG CAP PO SCH (09:12)
[2016-11-30] MEDS: CREON (12k-38k-60k) 1 CAP PO SCH ×3 (09:13→18:06)
[2016-11-30] MEDS: GABAPENTIN 100 MG CAP GTB SCH ×3 (09:13→21:06)
[2016-11-30] MEDS: CLOPIDOGREL 75 MG TAB PO SCH (09:14)
[2016-11-30] MEDS: APIXABAN 5 MG TABLET PO SCH ×2 (09:14→21:07)
[2016-11-30] MEDS: DOCUSATE SODIUM 100 MG CAP PO SCH ×2 (09:14→21:06)
[2016-11-30] MEDS: MULTIVIT/CA CARB/B CMPLX/FA TAB PO SCH (09:14)
[2016-11-30] MEDS: CALCIUM ACETATE 667 MG CAP PO SCH ×3 (09:14→18:06)
[2016-11-30] MEDS: MULTIVITAMINS THERAPEUTIC TAB PO SCH (09:14)
[2016-11-30] MEDS: SACCHAROMYCES BOULARDII 250 MG CAP PO SCH ×2 (09:14→21:06)
[2016-11-30] MEDS: CHOLECALCIFEROL 1,000 UNIT TAB PO SCH (09:15)
[2016-11-30] MEDS: ASCORBIC ACID 500 MG TAB PO SCH (09:15)
[2016-11-30] MEDS: LORATADINE 10 MG TAB PO SCH (09:15)
--- NOTE | 2016-11-30 09:32 | PN ---
Date/Time of Note Date/Time of Note DATE: 11/30/16 TIME: 09:27 Assessment/Plan VTE Prophylaxis VTE Prophylaxis Intervention: other VTE Contraindication Reason: bleeding Lines/Catheters IV Catheter Type (from Nrs): Central Line Central line still needed: No Urinary Cath still in place: No Assessment/Plan Chief Complaint/Hosp Course 1. R foot cellulitis , with ischemic , diabetic ulcer . He is 4 days post op a R AKA . He is having less pain in the R leg . Off antibiotics . 2. ESRD due to diabetic nephropathy , he is dialyzed [facility] . He just finished a hemodialysis treatment this morning. 3. he is being seen by ID , vascular and podiatry 4. DM 5. HTN 6. h/o severe postural hypotension 7. CAD 8. CVA Discharge planning. Problems: Subjective 24 Hr Interval Summary Free Text/Dictation He is now 4 days postop a right [id number] leg amputation. He is awake and alert and eating breakfast. He still has some right leg pain but not as severe as previous. He had a hemodialysis treatment this morning. Exam/Review of Systems Vital Signs Vitals Vital Signs Date Time Temp Pulse Resp B/P Pulse Ox O2 Delivery O2 Flow Rate FiO2 11/30/16 08:30 76 11/30/16 08:29 16 11/30/16 07:56 97.5 142/62 96 11/30/16 02:10 Room Air 11/26/16 21:45 1.0 Intake and Output 11/29/16 11/29/16 11/30/16 15:00 23:00 07:00 Intake Total 220 ml Balance 220 ml Exam He has a right [id number] amputation stump and left leg there is a below the knee amputation stump. Constitutional: alert, frail, oriented Psych: no complaints Respiratory: clear to auscultation, normal air movement Cardiovascular: regular rate and rhythm Gastrointestinal: non-tender, soft Results Result Diagram: 11/30/16 0529 11/28/16 0523 Results 24 hrs Laboratory Tests Test 11/29/16 12:42 11/29/16 17:30 11/29/16 20:14 11/30/16 05:29 Bedside Glucose 112 114 119 White Blood Count 10.9 H Red Blood Count 3.39 L Hemoglobin 10.0 L Hematocrit 32.9 L Mean Corpuscular Volume 97.1 Mean Corpuscular Hemoglobin 29.5 Mean Corpuscular Hemoglobin Concent 30.4 L Red Cell Distribution Width 17.9 H Platelet Count 174 Mean Platelet Volume 10.1 Neutrophils % 80.5 H Lymphocytes % 10.7 L Monocytes % 6.2 Eosinophils % 1.7 Basophils % 0.4 Nucleated Red Blood Cells % 0.0 Neutrophils # 8.8 H Lymphocytes # 1.2 Monocytes # 0.7 Eosinophils # 0.2 Basophils # 0.0 Nucleated Red Blood Cells # 0.0 Test 11/30/16 07:40 Bedside Glucose 130 Medications Medications Current Medications Ondansetron HCl (Zofran Inj) 4 mg Q6H PRN IV NAUSEA AND/OR VOMITING; Start at 17:00 Acetaminophen/ Hydrocodone Bitart ([place] (5/325)) 1 tab Q6H PRN PO MODERATE PAIN LEVEL 4-6 Last administered on 11/28/16 12:36; Admin Dose 1 TAB; Start at 17:00 Bisacodyl (Dulcolax) 5 mg DAILY PRN PO CONSTIPATION; Start 11/19/16 at 17:00 Zolpidem Tartrate (Ambien) 5 mg QHS PRN PO SLEEP Last administered on 22:05; Admin Dose 5 MG; Start 11/19/16 at 17:00 Diagnostic Test (Pha) (Accu-Chek) 1 ea 02 XX Last administered on 11/28/16 02: 25; Admin Dose 1 EA; Start 11/20/16 at 02:00 Miscellaneous Information 1 ea NOTE XX ; Start 11/19/16 at 17:30 Glucose (Glutose) 15 gm Q15M PRN PO DECREASED GLUCOSE; Start 11/19/16 at 17:30 Glucose (Glutose) 22.5 gm Q15M PRN PO DECREASED GLUCOSE; Start 11/19/16 at 17: 30 Dextrose (D50w Syringe) 25 ml Q15M PRN IV DECREASED GLUCOSE; Start 11/19/16 at 17:30 Dextrose (D50w Syringe) 50 ml Q15M PRN IV DECREASED GLUCOSE; Start 11/19/16 at 17:30 Glucagon (Glucagen) 1 mg Q15M PRN IM DECREASED GLUCOSE; Start 11/19/16 at 17:30 Glucose (Glutose) 15 gm Q15M PRN BUCCAL DECREASED GLUCOSE; Start 11/19/16 at 17 :30 Acetaminophen (Tylenol Tab) 650 mg Q4 PRN PO PAIN AND OR ELEVATED TEMP; Start 11/19/16 at 19:00 Ascorbic Acid (Vitamin C) 500 mg DAILY PO Last administered on 11/30/16 09:15 ; Admin Dose 500 MG; Start 11/20/16 at 09:00 Atorvastatin Calcium (Lipitor) 20 mg QHS PO Last administered on 11/29/16 20: 15; Admin Dose 20 MG; Start 11/19/16 at 21:00 Bisacodyl (Dulcolax Supp) 10 mg DAILY PRN [place] BM; Start 11/19/16 at 19:00 Calcitriol (Rocaltrol) 0.25 mcg DAILY PO Last administered on 11/30/16 09:12; Admin Dose 0.25 MCG; Start 11/20/16 at 09:00 Loratadine (Claritin) 10 mg DAILY PO Last administered on 11/30/16 09:15; Admin Dose 10 MG; Start 11/20/16 at 09:00 Multivit/Ca Carb/ B Cmplx/FA/Prenat (Sarika-Nahomi) 1 tab DAILY PO Last administered on 11/30/16 09:14; Admin Dose 1 TAB; Start 11/20/16 at 09:00 Multivitamins Therapeutic (Theragran) 1 tab DAILY PO Last administered on 09:14; Admin Dose 1 TAB; Start 11/20/16 at 09:00 Saccharomyces Boulardii (Florastor) 500 mg BID PO Last administered on 09:14; Admin Dose 500 MG; Start 11/19/16 at 21:00 Tamsulosin HCl (Flomax) 0.4 mg HS PO Last administered on 11/29/16 20:15; Admin Dose 0.4 MG; Start 11/19/16 at 21:00 Epoetin Nito (Epogen (Esrd)) 10,000 units MoWeFr@17 SC Last administered on 18:07; Admin Dose 10,000 UNITS; Start 11/20/16 at 17:00 Nitroglycerin (Nitroglycerin (Sl Tab) 0.4 Mg) 1 tab Q5M PRN SL ANGINA; Start at 14:30 Clopidogrel Bisulfate (plaVIX) 75 mg DAILY PO Last administered on 11/30/16 09 :14; Admin Dose 75 MG; Start 11/21/16 at 09:00 Cholecalciferol (Vitamin D) 1,000 unit DAILY PO Last administered on 11/30/16 09:15; Admin Dose 1,000 UNIT; Start 11/21/16 at 09:00 Docusate Sodium (Colace) 100 mg BID PO Last administered on 11/30/16 09:14; Admin Dose 100 MG; Start 11/20/16 at 21:00 Morphine Sulfate (morphine) 4 mg Q3H PRN IV PAIN Last administered on 03:04; Admin Dose 4 MG; Start 11/27/16 at 12:00 Apixaban (Eliquis) 2.5 mg BID PO Last administered on 11/30/16 09:14; Admin Dose 2.5 MG; Start 11/27/16 at 21:00 Gabapentin (Neurontin) 100 mg TID GTB Last administered on 11/30/16 09:13; Admin Dose 100 MG; Start 11/28/16 at 13:00 CELESTE BHATT MD Nov 30, 2016 09:32
[2016-11-30] MEDS: EPOETIN 10000 UNITS/1 ML INJ (ESRD) SC SCH (18:07)
[2016-11-30] MEDS: TAMSULOSIN (SR) 0.4 MG CAP PO SCH (21:06)
[2016-11-30] MEDS: HYDROCODONE/APAP (5/325) TAB PO PRN (21:07)
[2016-11-30] MEDS: ATORVASTATIN 20 MG TAB PO SCH (21:07)
[2016-12-01] MEDS: ACCU-CHEK XX SCH (01:13)
[2016-12-01 01:52] VITALS: BP 115/55; RESP 20
[2016-12-01 05:34] LABS: BASOPHIL # 0.1 10^3/ul (0.0-0.1); BASOPHILS % 0.5 % (0.0-2.0); EOSINOPHILS # 0.2 10^3/ul (0.0-0.5); EOSINOPHILS % 1.6 % (0.0-7.0); HEMATOCRIT 33.1 % (42.0-52.0); HEMOGLOBIN 10.3 g/dl (14.0-18.0); LYMPHOCYTES # 0.9 10^3/ul (0.8-2.9); LYMPHOCYTES % 9.6 % (15.0-51.0); MEAN CORPUSCULAR HEMOGLOBIN 30.8 pg (29.0-33.0); MEAN CORPUSCULAR HGB CONC 31.1 g/dl (32.0-37.0); MEAN CORPUSCULAR VOLUME 99.1 fl (82.0-101.0); MEAN PLATELET VOLUME 9.7 fl (7.4-10.4); MONOCYTE # 0.6 10^3/ul (0.3-0.9); MONOCYTES % 6.3 % (0.0-11.0); NEUTROPHIL # 7.9 10^3/ul (1.6-7.5); NEUTROPHILS % 81.5 % (39.0-77.0); PLATELET COUNT 175 10^3/UL (140-415); RED BLOOD COUNT 3.34 10^6/ul (4.70-6.10); RED CELL DISTRIBUTION WIDTH 17.6 % (11.5-14.5); WHITE BLOOD COUNT 9.7 10^3/ul (4.8-10.8)
[2016-12-01 07:42] VITALS: BP 116/57; RESP 18
[2016-12-01] MEDS: INSULIN ASPART [NOVOLOG] 3 ML PEN SC SCH ×4 (08:15→20:32)
[2016-12-01] MEDS ORDERED: HYDROCODONE/APAP (5/325) TAB PO PRN (09:00)
--- NOTE | 2016-12-01 09:10 | PN ---
Date/Time of Note Date/Time of Note DATE: 12/01/16 TIME: 09:02 Assessment/Plan VTE Prophylaxis VTE Prophylaxis Intervention: other Lines/Catheters IV Catheter Type (from [facility]): [place] Urinary Cath still in place: No Assessment/Plan Chief Complaint/Hosp Course 1. R foot cellulitis , with ischemic , diabetic ulcer . He is 5 days post op a R AKA . He is having less pain in the R leg . Off antibiotics . 2. ESRD due to diabetic nephropathy , he is dialyzed [facility] . He is due for hemodialysis tomorrow. 3. he is being seen by ID , vascular and podiatry 4. DM 5. HTN 6. h/o severe postural hypotension 7. CAD 8. CVA 9. He is disoriented today. He is responsive. This could be due to gabapentin he is taking. I am going to discontinue the gabapentin. I will take him off of morphine and continue hydrocodone as needed for pain. Discharge planning. Problems: Subjective 24 Hr Interval Summary Free Text/Dictation He is 5 days postop a right above the knee amputation. He is sleeping . He does rouse to verbal stimuli . He is disoriented to place . He thinks that he is at [facility] .He does have R leg pain , especially when he is moved . Constitutional: disoriented, no complaints Respiratory: no complaints Cardiovascular: no complaints Gastrointestinal: no complaints Genitourinary: no complaints Musculoskeletal: no complaints Skin: no complaints Exam/Review of Systems Vital Signs Vitals Vital Signs Date Time Temp Pulse Resp B/P Pulse Ox O2 Delivery O2 Flow Rate FiO2 12/01/16 07:42 98.9 86 18 116/57 94 11/30/16 19:42 Room Air Intake and Output 11/30/16 11/30/16 12/01/16 15:00 23:00 07:00 Intake Total 300 ml 720 ml 0 ml Output Total 3300 ml 0 ml Balance -3000 ml 720 ml 0 ml Exam He has a right above the knee amputation stump with a bandage over the stump. He has a left below the knee amputation. Constitutional: frail Psych: confusion Respiratory: clear to auscultation, normal air movement Cardiovascular: regular rate and rhythm Gastrointestinal: non-tender, soft Results Result Diagram: 12/01/16 0518 11/28/16 0523 Results 24 hrs Laboratory Tests Test 11/30/16 12:38 11/30/16 18:09 11/30/16 21:03 12/01/16 05:18 Bedside Glucose 137 108 140 White Blood Count 9.7 Red Blood Count 3.34 L Hemoglobin 10.3 L Hematocrit 33.1 L Mean Corpuscular Volume 99.1 Mean Corpuscular Hemoglobin 30.8 Mean Corpuscular Hemoglobin Concent 31.1 L Red Cell Distribution Width 17.6 H Platelet Count 175 Mean Platelet Volume 9.7 Neutrophils % 81.5 H Lymphocytes % 9.6 L Monocytes % 6.3 Eosinophils % 1.6 Basophils % 0.5 Nucleated Red Blood Cells % 0.0 Neutrophils # 7.9 H Lymphocytes # 0.9 Monocytes # 0.6 Eosinophils # 0.2 Basophils # 0.1 Nucleated Red Blood Cells # 0.0 Test 12/01/16 08:03 Bedside Glucose 110 Medications Medications Current Medications Ondansetron HCl (Zofran Inj) 4 mg Q6H PRN IV NAUSEA AND/OR VOMITING; Start at 17:00 Acetaminophen/ Hydrocodone Bitart ([place] (5/325)) 1 tab Q6H PRN PO MODERATE PAIN LEVEL 4-6 Last administered on 11/30/16 21:07; Admin Dose 1 TAB; Start at 17:00 Bisacodyl (Dulcolax) 5 mg DAILY PRN PO CONSTIPATION; Start 11/19/16 at 17:00 Zolpidem Tartrate (Ambien) 5 mg QHS PRN PO SLEEP Last administered on 22:05; Admin Dose 5 MG; Start 11/19/16 at 17:00 Diagnostic Test (Pha) (Accu-Chek) 1 ea 02 XX Last administered on 11/28/16 02: 25; Admin Dose 1 EA; Start 11/20/16 at 02:00 Miscellaneous Information 1 ea NOTE XX ; Start 11/19/16 at 17:30 Glucose (Glutose) 15 gm Q15M PRN PO DECREASED GLUCOSE; Start 11/19/16 at 17:30 Glucose (Glutose) 22.5 gm Q15M PRN PO DECREASED GLUCOSE; Start 11/19/16 at 17: 30 Dextrose (D50w Syringe) 25 ml Q15M PRN IV DECREASED GLUCOSE; Start 11/19/16 at 17:30 Dextrose (D50w Syringe) 50 ml Q15M PRN IV DECREASED GLUCOSE; Start 11/19/16 at 17:30 Glucagon (Glucagen) 1 mg Q15M PRN IM DECREASED GLUCOSE; Start 11/19/16 at 17:30 Glucose (Glutose) 15 gm Q15M PRN BUCCAL DECREASED GLUCOSE; Start 11/19/16 at 17 :30 Acetaminophen (Tylenol Tab) 650 mg Q4 PRN PO PAIN AND OR ELEVATED TEMP; Start 11/19/16 at 19:00 Ascorbic Acid (Vitamin C) 500 mg DAILY PO Last administered on 11/30/16 09:15 ; Admin Dose 500 MG; Start 11/20/16 at 09:00 Atorvastatin Calcium (Lipitor) 20 mg QHS PO Last administered on 11/30/16 21: 07; Admin Dose 20 MG; Start 11/19/16 at 21:00 Bisacodyl (Dulcolax Supp) 10 mg DAILY PRN [place] BM; Start 11/19/16 at 19:00 Calcitriol (Rocaltrol) 0.25 mcg DAILY PO Last administered on 11/30/16 09:12; Admin Dose 0.25 MCG; Start 11/20/16 at 09:00 Loratadine (Claritin) 10 mg DAILY PO Last administered on 11/30/16 09:15; Admin Dose 10 MG; Start 11/20/16 at 09:00 Multivit/Ca Carb/ B Cmplx/FA/Prenat (Sarika-Nahomi) 1 tab DAILY PO Last administered on 11/30/16 09:14; Admin Dose 1 TAB; Start 11/20/16 at 09:00 Multivitamins Therapeutic (Theragran) 1 tab DAILY PO Last administered on 09:14; Admin Dose 1 TAB; Start 11/20/16 at 09:00 Saccharomyces Boulardii (Florastor) 500 mg BID PO Last administered on 21:06; Admin Dose 500 MG; Start 11/19/16 at 21:00 Tamsulosin HCl (Flomax) 0.4 mg HS PO Last administered on 11/30/16 21:06; Admin Dose 0.4 MG; Start 11/19/16 at 21:00 Epoetin Nito (Epogen (Esrd)) 10,000 units MoWeFr@17 SC Last administered on 18:07; Admin Dose 10,000 UNITS; Start 11/20/16 at 17:00 Nitroglycerin (Nitroglycerin (Sl Tab) 0.4 Mg) 1 tab Q5M PRN SL ANGINA; Start at 14:30 Clopidogrel Bisulfate (plaVIX) 75 mg DAILY PO Last administered on 11/30/16 09 :14; Admin Dose 75 MG; Start 11/21/16 at 09:00 Cholecalciferol (Vitamin D) 1,000 unit DAILY PO Last administered on 11/30/16 09:15; Admin Dose 1,000 UNIT; Start 11/21/16 at 09:00 Docusate Sodium (Colace) 100 mg BID PO Last administered on 11/30/16 21:06; Admin Dose 100 MG; Start 11/20/16 at 21:00 Morphine Sulfate (morphine) 4 mg Q3H PRN IV PAIN Last administered on 19:46; Admin Dose 4 MG; Start 11/27/16 at 12:00 Apixaban (Eliquis) 2.5 mg BID PO Last administered on 11/30/16 21:07; Admin Dose 2.5 MG; Start 11/27/16 at 21:00 Gabapentin (Neurontin) 100 mg TID GTB Last administered on 11/30/16 21:06; Admin Dose 100 MG; Start 11/28/16 at 13:00 CELESTE BHATT MD Dec 01, 2016 09:09
[2016-12-01] MEDS: CREON (12k-38k-60k) 1 CAP PO SCH ×3 (09:16→18:00)
[2016-12-01] MEDS: SACCHAROMYCES BOULARDII 250 MG CAP PO SCH ×2 (09:17→20:34)
[2016-12-01] MEDS: LORATADINE 10 MG TAB PO SCH (09:17)
[2016-12-01] MEDS: CALCITRIOL 0.25 MCG CAP PO SCH (09:17)
[2016-12-01] MEDS: ASCORBIC ACID 500 MG TAB PO SCH (09:17)
[2016-12-01] MEDS: CALCIUM ACETATE 667 MG CAP PO SCH ×3 (09:17→18:01)
[2016-12-01] MEDS: APIXABAN 5 MG TABLET PO SCH ×2 (09:18→20:34)
[2016-12-01] MEDS: CHOLECALCIFEROL 1,000 UNIT TAB PO SCH (09:18)
[2016-12-01] MEDS: CLOPIDOGREL 75 MG TAB PO SCH (09:18)
[2016-12-01] MEDS: MULTIVIT/CA CARB/B CMPLX/FA TAB PO SCH (09:18)
[2016-12-01] MEDS: DOCUSATE SODIUM 100 MG CAP PO SCH ×2 (09:18→20:34)
[2016-12-01 13:16] VITALS: BP 127/61; RESP 20
[2016-12-01] MEDS: HYDROCODONE/APAP (5/325) TAB PO PRN ×2 (13:58→22:10)
[2016-12-01 19:41] VITALS: BP 130/63; RESP 18
[2016-12-01] MEDS: ATORVASTATIN 20 MG TAB PO SCH (20:34)
[2016-12-01] MEDS: TAMSULOSIN (SR) 0.4 MG CAP PO SCH (20:34)
[2016-12-02] VITALS (10 sets, daily range): BP systolic 113–139; BP diastolic 54–82; PULSE 70–77; RESP 16–18
[2016-12-02] MEDS: ACCU-CHEK XX SCH (02:00)
[2016-12-02] MEDS: INSULIN ASPART [NOVOLOG] 3 ML PEN SC SCH ×3 (08:15→18:00)
[2016-12-02] MEDS: MULTIVIT/CA CARB/B CMPLX/FA TAB PO SCH (09:10)
[2016-12-02] MEDS: CHOLECALCIFEROL 1,000 UNIT TAB PO SCH (09:10)
[2016-12-02] MEDS: APIXABAN 5 MG TABLET PO SCH (09:10)
[2016-12-02] MEDS: LORATADINE 10 MG TAB PO SCH (09:10)
[2016-12-02] MEDS: CLOPIDOGREL 75 MG TAB PO SCH (09:10)
[2016-12-02] MEDS: DOCUSATE SODIUM 100 MG CAP PO SCH (09:10)
[2016-12-02] MEDS: CALCIUM ACETATE 667 MG CAP PO SCH ×3 (09:10→18:16)
[2016-12-02] MEDS: SACCHAROMYCES BOULARDII 250 MG CAP PO SCH (09:11)
[2016-12-02] MEDS: CALCITRIOL 0.25 MCG CAP PO SCH (09:11)
[2016-12-02] MEDS: ASCORBIC ACID 500 MG TAB PO SCH (09:11)
[2016-12-02] MEDS: CREON (12k-38k-60k) 1 CAP PO SCH ×3 (09:11→18:18)
--- NOTE | 2016-12-02 09:37 | PN ---
Date/Time of Note Date/Time of Note DATE: 12/02/16 TIME: 09:32 Assessment/Plan VTE Prophylaxis VTE Prophylaxis Intervention: other Lines/Catheters IV Catheter Type (from [facility]): Saline Lock Urinary Cath still in place: No Assessment/Plan Chief Complaint/Hosp Course 1. R foot cellulitis , with ischemic , diabetic ulcer . He is 6 days post op a R AKA . He is having less pain in the R leg . Off antibiotics . 2. ESRD due to diabetic nephropathy , he is dialyzed [facility] . He had hemodialysis treatment this morning.. 3. he is being seen by ID , vascular and podiatry 4. DM 5. HTN 6. h/o severe postural hypotension 7. CAD 8. CVA 9. He is awake and he is responsive. He was disoriented yesterday and I felt that this could be due to gabapentin he was taking. I discontinued the gabapentin. I will take him off of morphine and continue hydrocodone as needed for pain. Discharge planning. I spoke with case management. He could either go home if they are ready to care for him at home or he could go back to [facility]. They will call his daughter for a further update. Problems: Subjective 24 Hr Interval Summary Free Text/Dictation He is awake and alert this morning. He just finished his hemodialysis treatment. We discussed discharge planning. His right leg pain is under control on current medications. Constitutional: no complaints Respiratory: cough Cardiovascular: no complaints Gastrointestinal: no complaints Genitourinary: other Musculoskeletal: no complaints Neurologic: no complaints Exam/Review of Systems Vital Signs Vitals Vital Signs Date Time Temp Pulse Resp B/P Pulse Ox O2 Delivery O2 Flow Rate FiO2 12/02/16 08:12 97.7 65 16 130/61 100 11/30/16 19:42 Room Air Intake and Output 12/01/16 12/01/16 12/02/16 15:00 23:00 07:00 Intake Total 480 ml 150 ml Output Total 100 ml 0 ml Balance 380 ml 150 ml Exam He has a right leg [id number] amputation and a left below the knee amputation. Constitutional: alert, frail, oriented Neck: non-tender, supple Respiratory: clear to auscultation, normal air movement Cardiovascular: regular rate and rhythm Gastrointestinal: soft Results Result Diagram: 12/01/16 0518 11/28/16 0523 Results 24 hrs Laboratory Tests Test 12/01/16 11:58 12/01/16 17:38 12/01/16 20:30 12/02/16 08:27 Bedside Glucose 116 107 129 117 Medications Medications Current Medications Ondansetron HCl (Zofran Inj) 4 mg Q6H PRN IV NAUSEA AND/OR VOMITING; Start at 17:00 Acetaminophen/ Hydrocodone Bitart ([place] (5/325)) 1 tab Q6H PRN PO MODERATE PAIN LEVEL 4-6 Last administered on 12/01/16 22:10; Admin Dose 1 TAB; Start at 17:00 Bisacodyl (Dulcolax) 5 mg DAILY PRN PO CONSTIPATION; Start 11/19/16 at 17:00 Zolpidem Tartrate (Ambien) 5 mg QHS PRN PO SLEEP Last administered on 22:05; Admin Dose 5 MG; Start 11/19/16 at 17:00 Diagnostic Test (Pha) (Accu-Chek) 1 ea 02 XX Last administered on 11/28/16 02: 25; Admin Dose 1 EA; Start 11/20/16 at 02:00 Miscellaneous Information 1 ea NOTE XX ; Start 11/19/16 at 17:30 Glucose (Glutose) 15 gm Q15M PRN PO DECREASED GLUCOSE; Start 11/19/16 at 17:30 Glucose (Glutose) 22.5 gm Q15M PRN PO DECREASED GLUCOSE; Start 11/19/16 at 17: 30 Dextrose (D50w Syringe) 25 ml Q15M PRN IV DECREASED GLUCOSE; Start 11/19/16 at 17:30 Dextrose (D50w Syringe) 50 ml Q15M PRN IV DECREASED GLUCOSE; Start 11/19/16 at 17:30 Glucagon (Glucagen) 1 mg Q15M PRN IM DECREASED GLUCOSE; Start 11/19/16 at 17:30 Glucose (Glutose) 15 gm Q15M PRN BUCCAL DECREASED GLUCOSE; Start 11/19/16 at 17 :30 Acetaminophen (Tylenol Tab) 650 mg Q4 PRN PO PAIN AND OR ELEVATED TEMP; Start 11/19/16 at 19:00 Ascorbic Acid (Vitamin C) 500 mg DAILY PO Last administered on 12/02/16 09:11 ; Admin Dose 500 MG; Start 11/20/16 at 09:00 Atorvastatin Calcium (Lipitor) 20 mg QHS PO Last administered on 12/01/16 20: 34; Admin Dose 20 MG; Start 11/19/16 at 21:00 Bisacodyl (Dulcolax Supp) 10 mg DAILY PRN HI BM; Start 11/19/16 at 19:00 Calcitriol (Rocaltrol) 0.25 mcg DAILY PO Last administered on 12/02/16 09:11; Admin Dose 0.25 MCG; Start 11/20/16 at 09:00 Loratadine (Claritin) 10 mg DAILY PO Last administered on 12/02/16 09:10; Admin Dose 10 MG; Start 11/20/16 at 09:00 Multivit/Ca Carb/ B Cmplx/FA/Prenat (Sarika-Nahomi) 1 tab DAILY PO Last administered on 12/02/16 09:10; Admin Dose 1 TAB; Start 11/20/16 at 09:00 Saccharomyces Boulardii (Florastor) 500 mg BID PO Last administered on 09:11; Admin Dose 500 MG; Start 11/19/16 at 21:00 Tamsulosin HCl (Flomax) 0.4 mg HS PO Last administered on 12/01/16 20:34; Admin Dose 0.4 MG; Start 11/19/16 at 21:00 Epoetin Nito (Epogen (Esrd)) 10,000 units MoWeFr@17 SC Last administered on 18:07; Admin Dose 10,000 UNITS; Start 11/20/16 at 17:00 Nitroglycerin (Nitroglycerin (Sl Tab) 0.4 Mg) 1 tab Q5M PRN SL ANGINA; Start at 14:30 Clopidogrel Bisulfate (plaVIX) 75 mg DAILY PO Last administered on 12/02/16 09 :10; Admin Dose 75 MG; Start 11/21/16 at 09:00 Cholecalciferol (Vitamin D) 1,000 unit DAILY PO Last administered on 12/02/16 09:10; Admin Dose 1,000 UNIT; Start 11/21/16 at 09:00 Docusate Sodium (Colace) 100 mg BID PO Last administered on 12/02/16 09:10; Admin Dose 100 MG; Start 11/20/16 at 21:00 Apixaban (Eliquis) 2.5 mg BID PO Last administered on 12/02/16t 09:10; Admin Dose 2.5 MG; Start 11/27/16 at 21:00 Acetaminophen/ Hydrocodone Bitart ([place] (5/325)) 2 tab Q6H PRN PO SEVERE PAIN LEVEL 7-10; Start 12/01/16 at 09:00 CELESTE BHATT MD Dec 02, 2016 09:37
--- NOTE | 2016-12-02 14:46 | PN ---
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 The patient also would require a new arteriovenous fistula creation. However as mentioned above, we will plan to await for any surgical intervention as he is to tired to continue with his current medical health. -Discussed findings, plan and management with the patient. He understands. -Appreciate podiatry input and continue local wound care as recommended. -Optimize vascular status (BP meds, diet, nutrition, exercise, sugar control, antiplatelets). -Thank you for allowing us to partake in the care of your patient. Please call with any questions. Problems: Subjective 24 Hr Interval Summary no new vascular events overnight Exam/Review of Systems Vital Signs Vitals Vital Signs Date Time Temp Pulse Resp B/P Pulse Ox O2 Delivery O2 Flow Rate FiO2 12/02/16 08:12 97.7 65 16 130/61 100 11/30/16 19:42 Room Air Intake and Output 12/01/16 12/01/16 12/02/16 14:59 22:59 06:59 Intake Total 480 ml 150 ml Output Total 100 ml 0 ml Balance 380 ml 150 ml Exam Free Text/Dictation GENERAL: Alert, oriented x3. LUNGS: Clear to auscultation bilaterally. HEART: S1, S2 present. ABDOMEN: Soft, nontender, nondistended. Bowel sounds positive. EXTREMITIES: -Left lower extremity, palpable femoral pulse. BkA stump well healed. The capillary refill about 3 seconds. Motor sensory intact. -Right lower extremity, palpable femoral pulse. AKA-stump with dressing intact , removed and incision with alec intact Results Result Diagram: 12/01/16 0518 11/28/16 0523 MARTÍNEZ ROSADO MD Dec 02, 2016 14:46
--- NOTE | 2016-12-02 18:00 | PDOCDIS ---
Discharge Instructions DIAGNOSIS Discharge Diagnosis Diabetic R foot ulcer CONDITION Patient Condition: Good HOME CARE INSTRUCTIONS: Diet Instructions: Reduced CalorieSpecial Diet: 1800 mariangel., Controlled Carb Diet ACTIVITY: Activity Restrictions: Slowly Increase Activity Rest between Activity Avoid heavy lifting Do not Drive Do not operate Machinery Keep Limb Elevated No Weight Bearing FOLLOW UP/APPOINTMENTS Follow-up Plan CELESTE Larios MD Dec 02, 2016 18:00
[2016-12-02] MEDS: EPOETIN 10000 UNITS/1 ML INJ (ESRD) SC SCH (18:17)
--- NOTE | 2016-12-03 04:45 | DS ---
DATE OF ADMISSION: 11/19/2016 DATE OF DISCHARGE: 12/02/2016 HISTORY OF PRESENT ILLNESS AND HOSPITAL COURSE: This 70-year-old man was admitted from the [facility] after he presented there with gangrene of the 4th right toe. The patient has a long history of peripheral vascular disease. He first developed the problem 1 year ago when he was admitted to this hospital with a left ischemic diabetic foot ulcer. He eventually underwent a left [id number] amputation. He then has been in and out of a rehab facility. He has been followed at the [facility] by Dr. Johny Conteh. Dr. Conteh saw him several weeks ago and recommended that he be admitted to the hospital because of the right 4th toe gangrene and cellulitis of the foot. The patient was started on antibiotics. However, there was poor wound healing and the heel of the right foot also had an ulcer. After discussions with the patient's family, his daughter, Dr. Conteh and myself, it was decided that the best option would be to consider amputation of the right leg. Dr. Conteh recommended that he have an above- the-knee amputation because of a bypass that was done on the right leg months ago. The patient did undergo a [id number]- knee amputation. He tolerated the procedure well. He did have some postop pain, which has resolved. The patient at this time is doing well. He is in good condition. He is ready to go back to [facility] for further rehabilitation. The patient does have endstage renal disease and is on maintenance hemodialysis Wednesday, Wednesday, and Wednesday. He was dialyzed today for his routine dialysis treatment. DISCHARGE MEDICATIONS: The patient will go back to [facility] on the following medications: 1. Tylenol p.r.n. pain. 2. Eliquis 2.5 mg twice a day. 3. Ascorbic acid 500 mg a day. 4. Atorvastatin 20 mg a day. 5. Dulcolax p.r.n. constipation. 6. Dulcolax suppository daily p.r.n. constipation. 7. Calcitriol 0.25 mg a day. 8. PhosLo 1 tablet 3 times a day with meals. 9. Vitamin D 1000 units a day. 10. Plavix 75 mg a day. 11. Docusate sodium 100 mg twice a day. 12. [place] 5/325 mg 1 or 2 tablets q.6 h for pain. 13. Sliding scale NovoLog insulin coverage for elevated blood sugars. 14. Creon 4 capsules with each meal. 15. Loratadine 10 mg daily. 16. Multivitamins 1 daily. 17. Nitroglycerin 0.4 mg sublingual p.r.n. chest pain. 18. Florastor 500 mg twice a day. 19. Tamsulosin 0.4 mg a day. 20. Zolpidem 5 mg p.o. at bedtime p.r.n. sleep. FINAL DIAGNOSES: 1. Right foot ischemic diabetic ulcer, status post above-the- knee amputation. 2. Insulin-dependent diabetes mellitus. 3. Endstage renal disease, on maintenance hemodialysis. 4. Coronary artery disease. 5. History of atrial flutter. 6. History of cerebral vascular accident. 7. Anemia of chronic disease. 8. Severe postural hypotension. Dictated By: Migue Nunez MD /[email or web address]/libia /Document#: [id number]
== END 2016-12-02 19:45 | DRG 239 ==
LOC: MS2 15:48 → UNDOADMIN 15:48 → MS2 16:56
PROVIDERS: ADMIT Internal Medicine; ATTEND Internal Medicine
PROC: 0HDMXZZ Extraction of Right Foot Skin, External Approach (ICD-10-PCS; 2016-11-20)
PROC: 5A1D60Z (ICD-10-PCS; 2016-11-23)
PROC: 0Y6C0Z1 Detachment at Right Upper Leg, High, Open Approach (ICD-10-PCS; principal; 2016-11-26 11:00)
DX: E11.52 Type 2 diabetes mellitus with diabetic peripheral angiopathy with gangrene (principal); N18.6 End stage renal disease; I12.0 Hypertensive chronic kidney disease with stage 5 chronic kidney disease or end stage renal disease; E11.21 Type 2 diabetes mellitus with diabetic nephropathy; I48.92 Unspecified atrial flutter; I70.261 Atherosclerosis of native arteries of extremities with gangrene, right leg; L03.115 Cellulitis of right lower limb; L97.419 Non-pressure chronic ulcer of right heel and midfoot with unspecified severity; I69.354 Hemiplegia and hemiparesis following cerebral infarction affecting left non-dominant side; Z79.02 Long term (current) use of antithrombotics/antiplatelets; E11.621 Type 2 diabetes mellitus with foot ulcer; E11.42 Type 2 diabetes mellitus with diabetic polyneuropathy; E11.22 Type 2 diabetes mellitus with diabetic chronic kidney disease; Z99.2 Dependence on renal dialysis; Z89.512 Acquired absence of left leg below knee; E11.51 Type 2 diabetes mellitus with diabetic peripheral angiopathy without gangrene; I69.320 Aphasia following cerebral infarction; I25.10 Atherosclerotic heart disease of native coronary artery without angina pectoris; I95.1 Orthostatic hypotension; D63.8 Anemia in other chronic diseases classified elsewhere; Z89.421 Acquired absence of other right toe(s); E11.319 Type 2 diabetes mellitus with unspecified diabetic retinopathy without macular edema; I25.2 Old myocardial infarction; Z74.01 Bed confinement status; Z95.5 Presence of coronary angioplasty implant and graft; Z79.01 Long term (current) use of anticoagulants; I35.2 Nonrheumatic aortic (valve) stenosis with insufficiency; N40.0 Benign prostatic hyperplasia without lower urinary tract symptoms; I25.5 Ischemic cardiomyopathy; B95.62 Methicillin resistant Staphylococcus aureus infection as the cause of diseases classified elsewhere; M24.562 Contracture, left knee; I70.202 Unspecified atherosclerosis of native arteries of extremities, left leg; Z79.4 Long term (current) use of insulin
CPT/HCPCS: 36430; 71010; 73630; 80048; 80053; 80202; 82962; 83036; 83735; 84100; 85025; 85610; 85651; 85730; 86140; 86704; 86709; 86803; 86850; 86900; 86901; 86920; 87040; 87070; 87081; 87340; 88307; 88311; 90935; 93005; 93306; 93922; J1815; J2250; J2270; J2543; J2795; J3010; J3370; J7050; L8440; P9016; Q4081